=== PATIENT | female | born 1960 | race Caucasian/White ===

== ENCOUNTER 2017-09-06 15:24 | Inpatient (IN) | payer OTHER ==
[2017-09-06] MEDS ORDERED: SODIUM CHLORIDE 0.9% 1,000 ML IV STA (16:42)
[2017-09-06] MEDS ORDERED: IPRATROPIUM-ALBUTEROL 3 ML NEB INHALATION STA (16:43)
--- NOTE | 2017-09-06 16:51 | ED ---
General Adult HPI - General Source: patient, RN notes reviewed Mode of arrival: ambulatory <Letty Chen - Last Filed: 09/06/17 19:18> <Josue Webb - Last Filed: 09/06/17 19:34> - General Stated complaint: abdominal pain/chest pain Time Seen by Provider: 09/06/17 16:25 - History of Present Illness Initial comments: 56 yo female presents to the ER with cc of of abdominal pain cough congestion ear pain sore throat. She states she's been sick for about a week now. She has a history of diverticulitis. She states she also had this cough and she has a little bit of chest pain with it. She does have a history of PE as well currently not on any blood thinners. She denies any nausea vomiting. She states also ears also causing her some discomfort. She was concerned due to the continued symptoms so she thought that she should be evaluated.Patient denies any recent numbness or tingling, dysuria or hematuria, constipation or diarrhea, headaches or visual changes, or any other current symptoms. (Letty Chen) - Related Data Home Medications Medication Instructions Recorded Confirmed Multivitamins, Thera [Multivitamin] 1 tab PO DAILY 01/29/16 09/06/17 Allergies Allergy/AdvReac Type Severity Reaction Status Date / Time ibuprofen AdvReac Abdominal Verified 09/06/17 16:26 Pain Review of Systems ROS Other: All systems not noted in ROS Statement are negative. <Letty Chen - Last Filed: 09/06/17 19:18> ROS Other: All systems not noted in ROS Statement are negative. <Josue Webb - Last Filed: 09/06/17 19:34> ROS Statement: Those systems with pertinent positive or pertinent negative responses have been documented in the HPI. Past Medical History Past Medical History: Asthma, COPD, Fibromyalgia, Hypertension, Pulmonary Embolus (PE) Additional Past Medical History / Comment(s): brain aneurysm, DDD, diverticulits , pain neck, back,legs, hands states not interested in injections for pain relief History of Any Multi-Drug Resistant Organisms: None Reported Past Surgical History: Hysterectomy Additional Past Surgical History / Comment(s): D&C, angiograms Past Anesthesia/Blood Transfusion Reactions: No Reported Reaction Past Psychological History: Anxiety, Depression Smoking Status: Current every day smoker Past Alcohol Use History: None Reported Past Drug Use History: Marijuana - Past Family History Mother Family Medical History: Cancer, Coronary Artery Disease (CAD) Sister(s) Family Medical History: Cancer, Neurologic Disorder Additional Family Medical History / Comment(s): parkinsonism Brother(s) Family Medical History: Cancer <Letty Chen - Last Filed: 09/06/17 19:18> General Exam <Letty Chen - Last Filed: 09/06/17 19:18> <Josue Webb - Last Filed: 09/06/17 19:34> - General Exam Comments Initial Comments: General: The patient is awake and alert, in no distress, and does not appear acutely ill. Eye: Pupils are equal, round and reactive to light, extra-ocular movements are intact; there is normal conjunctiva bilaterally. No signs of icterus. Ears, nose, mouth and throat: There are moist mucous membranes and no oral lesions. Tympanic membranes are mildly erythematous bilaterally Neck: The neck is supple, there is no tenderness. Cardiovascular: There is a regular rate and rhythm. No murmur, rub or gallop is appreciated. Respiratory: Lungs are clear to auscultation, respirations are non-labored, breath sounds are equal. No wheezes, stridor, rales, or rhonchi. Gastrointestinal: Soft, non-distended, mildly diffuse tenderness of the abdomen without masses or organomegaly noted. There is no rebound or guarding present. No CVA tenderness. Bowel sounds are unremarkable. Back: There is no tenderness to palpation in the midline. There is no obvious deformity. No rashes noted. Musculoskeletal: Normal ROM, no tenderness, There is no pedal edema. There is no calf tenderness or swelling. Sensation intact. Pulses equal bilaterally 2+. Neurological: CN II-XII intact, There are no obvious motor or sensory deficits. Coordination appears grossly intact. Speech is normal. Skin: Skin is warm and dry and no rashes or lesions are noted. Psychiatric: Cooperative, appropriate mood & affect, normal judgment. (Letty Chen) Course <Letty Chen - Last Filed: 09/06/17 19:18> <Josue Webb - Last Filed: 09/06/17 19:34> Vital Signs 09/06/17 09/06/17 09/06/17 16:44 18:33 18:40 Temperature 98.5 F Pulse Rate 65 77 71 Respiratory 18 16 16 Rate Blood Pressure 140/84 O2 Sat by Pulse 95 Oximetry - Reevaluation(s) Reevaluation #1: 09/06/17 19:33 PA supervision: I did personally see the patient [id number] and did discuss findings with her and her family. Abdomen is minimally tender she has had a recent viral infection she does not drink alcohol and lab work appears had no issues with liver or gallbladder at this time. I did discuss the case with her physician patient be admitted with GI consultation. I do agree with the assessment and plan (Josue Webb) EKG Findings - EKG Comments: EKG Findings:: normal sinus rhythm with sinus arrhythmia 61 bpm, normal axis, no atopy, no S-T depressions or elevations, <Letty Chen - Last Filed: 09/06/17 19:18> Medical Decision Making - Lab Data Result diagrams: 09/06/17 17:25 09/06/17 17:25 - Radiology Data Radiology results: report reviewed, image reviewed <Letty Chen - Last Filed: 09/06/17 19:18> - Lab Data Result diagrams: 09/06/17 17:25 09/06/17 17:25 <Josue Webb - Last Filed: 09/06/17 19:34> - Medical Decision Making 56-year-old female presents emergency department with multiple complaints. At this time lab work is been reviewed as well as imaging. At this time patient does appear to acute pancreatitis. We'll admit the patient for IV hydration and nausea meds and pain control. We did discuss this with the patient and she is in agreement with this plan. All questions have been answered. (Letty Chen) - Lab Data Lab Results 09/06/17 09/06/17 09/06/17 Range/Units 17:25 17:25 17:25 WBC 9.8 (3.8-10.6) k/uL RBC 5.45 H (3.80-5.40) m/uL Hgb 15.7 (11.4-16.0) gm/dL Hct 49.2 H (34.0-46.0) % MCV 90.3 (80.0-100.0) fL MCH 28.7 (25.0-35.0) pg MCHC 31.8 (31.0-37.0) g/dL RDW 13.1 (11.5-15.5) % Plt Count 296 (150-450) k/uL Neutrophils % 58 % Lymphocytes % 33 % Monocytes % 4 % Eosinophils % 3 % Basophils % 1 % Neutrophils # 5.7 (1.3-7.7) k/uL Lymphocytes # 3.2 (1.0-4.8) k/uL Monocytes # 0.4 (0-1.0) k/uL Eosinophils # 0.3 (0-0.7) k/uL Basophils # 0.1 (0-0.2) k/uL PT (9.0-12.0) sec INR (<1.2) APTT (22.0-30.0) sec D-Dimer (<0.60) mg/L FEU Sodium 144 (137-145) mmol/L Potassium 4.0 (3.5-5.1) mmol/L Chloride 103 (98-107) mmol/L Carbon Dioxide 30 (22-30) mmol/L Anion Gap 11 mmol/L BUN 12 (7-17) mg/dL Creatinine 0.65 (0.52-1.04) mg/dL Est GFR (MDRD) Af Amer >60 (>60 ml/min/1.73 sqM) Est GFR (MDRD) Non-Af >60 (>60 ml/min/1.73 sqM) Glucose 84 (74-99) mg/dL Calcium 10.0 (8.4-10.2) mg/dL Magnesium 2.0 (1.6-2.3) mg/dL Total Bilirubin 0.4 (0.2-1.3) mg/dL AST 18 (14-36) U/L ALT 26 (9-52) U/L Alkaline Phosphatase 75 (38-126) U/L Total Creatine Kinase 37 (30-135) U/L CK-MB (CK-2) 0.4 (0.0-2.4) ng/mL CK-MB (CK-2) Rel Index 1.1 Troponin I <0.012 (0.000-0.034) ng/mL Total Protein 7.3 (6.3-8.2) g/dL Albumin 4.2 (3.5-5.0) g/dL Amylase 151 H (30-110) U/L Lipase 2199 H (23-300) U/L Influenza Type A RNA (Not Detectd) Influenza Type B (PCR) (Not Detectd) 09/06/17 09/06/17 Range/Units 17:25 17:25 WBC (3.8-10.6) k/uL RBC (3.80-5.40) m/uL Hgb (11.4-16.0) gm/dL Hct (34.0-46.0) % MCV (80.0-100.0) fL MCH (25.0-35.0) pg MCHC (31.0-37.0) g/dL RDW (11.5-15.5) % Plt Count (150-450) k/uL Neutrophils % % Lymphocytes % % Monocytes % % Eosinophils % % Basophils % % Neutrophils # (1.3-7.7) k/uL Lymphocytes # (1.0-4.8) k/uL Monocytes # (0-1.0) k/uL Eosinophils # (0-0.7) k/uL Basophils # (0-0.2) k/uL PT 9.9 (9.0-12.0) sec INR 1.0 (<1.2) APTT 23.1 (22.0-30.0) sec D-Dimer 0.71 H (<0.60) mg/L FEU Sodium (137-145) mmol/L Potassium (3.5-5.1) mmol/L Chloride (98-107) mmol/L Carbon Dioxide (22-30) mmol/L Anion Gap mmol/L BUN (7-17) mg/dL Creatinine (0.52-1.04) mg/dL Est GFR (MDRD) Af Amer (>60 ml/min/1.73 sqM) Est GFR (MDRD) Non-Af (>60 ml/min/1.73 sqM) Glucose (74-99) mg/dL Calcium (8.4-10.2) mg/dL Magnesium (1.6-2.3) mg/dL Total Bilirubin (0.2-1.3) mg/dL AST (14-36) U/L ALT (9-52) U/L Alkaline Phosphatase (38-126) U/L Total Creatine Kinase (30-135) U/L CK-MB (CK-2) (0.0-2.4) ng/mL CK-MB (CK-2) Rel Index Troponin I (0.000-0.034) ng/mL Total Protein (6.3-8.2) g/dL Albumin (3.5-5.0) g/dL Amylase (30-110) U/L Lipase (23-300) U/L Influenza Type A RNA Not Detected (Not Detectd) Influenza Type B (PCR) Not Detected (Not Detectd) Disposition Decision Date: 09/06/17 Decision Time: 19:18 <Letty Chen - Last Filed: 09/06/17 19:18> <Josue Webb - Last Filed: 09/06/17 19:34> Clinical Impression: Acute pancreatitis Disposition: ADMITTED IP TO THIS [facility] Condition: Stable Referrals: Manuel Ramirez MD [Primary Care Provider] - 1-2 days
[2017-09-06 17:36] LABS: Basophils # (A) 0.1 k/uL (0-0.2); Basophils % (A) 1 %; Eosinophils # (A) 0.3 k/uL (0-0.7); Eosinophils % (A) 3 %; HCT 49.2 % (34.0-46.0); HGB 15.7 gm/dL (11.4-16.0); Lymphocytes # (A) 3.2 k/uL (1.0-4.8); Lymphocytes % (A) 33 %; MCH 28.7 pg (25.0-35.0); MCHC 31.8 g/dL (31.0-37.0); MCV 90.3 fL (80.0-100.0); Mean Platelet Volume 6.2; Monocytes # (A) 0.4 k/uL (0-1.0); Monocytes % (A) 4 %; Neutrophils # (A) 5.7 k/uL (1.3-7.7); Neutrophils % (A) 58 %; Platelet Count 296 k/uL (150-450); RBC 5.45 m/uL (3.80-5.40); RDW 13.1 % (11.5-15.5); WBC 9.8 k/uL (3.8-10.6)
[2017-09-06 17:47] LABS: ALT 26 U/L (9-52); AST 18 U/L (14-36); Albumin 4.2 g/dL (3.5-5.0); Alkaline Phosphatase 75 U/L (38-126); Amylase 151 U/L (30-110); Anion Gap 11 mmol/L; Blood Urea Nitrogen 12 mg/dL (7-17); Carbon Dioxide 30 mmol/L (22-30); Chloride 103 mmol/L (98-107); Glucose 84 mg/dL (74-99); Sodium 144 mmol/L (137-145); Total Bilirubin 0.4 mg/dL (0.2-1.3); Total Protein 7.3 g/dL (6.3-8.2)
[2017-09-06 17:50] LABS: D-Dimer 0.71 mg/L FEU (<0.60)
[2017-09-06 17:54] LABS: Partial Thromboplastin Time 23.1 sec (22.0-30.0); Prothrombin Time 9.9 sec (9.0-12.0)
[2017-09-06 17:56] LABS: Lipase 2199 U/L (23-300)
[2017-09-06 17:58] LABS: Creatine Kinase 37 U/L (30-135)
--- NOTE | 2017-09-06 17:58 | XR ---
EXAMINATION TYPE: XR chest 2V DATE OF EXAM: 09/06/2017 COMPARISON: 09/28/2010 HISTORY: Cough TECHNIQUE: Frontal and lateral views of the chest are obtained. FINDINGS: Heart and mediastinum are normal. There is a small infiltrate at the left lung base. There is no heart failure. There are chest leads. Bony thorax is intact. IMPRESSION: There is minimal infiltrate at the left lung base. There is overall improved aeration of the left lower lobe compared to old exam. Normal heart.
[2017-09-06] MEDS ORDERED: RX INFO: IV CONTRAST WAS GIVEN 1 EACH MISC MISCELLANE PRN (18:01)
[2017-09-06 18:11] LABS: Creatine Kinase MB 0.4 ng/mL (0.0-2.4); Troponin I <0.012 ng/mL (0.000-0.034)
--- NOTE | 2017-09-06 18:59 | CT ---
EXAMINATION TYPE: CT chest angio for PE DATE OF EXAM: 09/06/2017 COMPARISON: 04/14/2016 HISTORY: Chest pain CT DLP: 427.9 mGycm Automated exposure control for dose reduction was used. CONTRAST: CT Chest for pulmonary embolism performed with with IV Contrast, patient injected with 100ml mL of Om nipaque 350. FINDINGS: There are 3-D post processed images. The lungs are clear of consolidation. There is mild subsegmental atelectasis at the lung bases. There is no pleural effusion. There is no evidence of a pulmonary mass. Heart size is normal. There is no pericardial effusion. There is normal contrast opacification of the pulmonary arteries. I see no filling defect. There are no hilar masses. There is no mediastinal adenopathy. Thoracic aorta appears normal. There is no sign of aneurysm or dissection. The bony thorax appears intact. IMPRESSION: No evidence of pulmonary embolism. Mild subsegmental atelectasis at the lung bases. No change compare d to old exam.
--- NOTE | 2017-09-06 19:07 | CT ---
EXAMINATION TYPE: CT abdomen pelvis w con DATE OF EXAM: 09/06/2017 COMPARISON: 12/18/2013 HISTORY: Abd pain. CT DLP: 1582.4 mGycm Automated exposure control for dose reduction was used. TECHNIQUE: Helical acquisition of images was performed from the lung bases through the pelvis. CONTRAST: Performed without Oral Contrast and with IV Contrast, patient injected with 100ml mL of Omnipaque 350 . FINDINGS: There is mild subsegmental atelectasis at the lung bases. Heart size is normal. There is no pericardi al effusion. There is no pleural effusion. Liver spleen pancreas gallbladder appear normal. Bile ducts are not dilated. Gallbladder is somewhat contracted. There is no adrenal mass. Kidneys show satisfactory contrast opacification. There is no hydronephrosi s. There is no retroperitoneal adenopathy. There is no ascites. There are numerous diverticula in the sigmoid colon. There is mild wall thickening involving the sigmoid colon. There are diverticula in t he descending colon. Appendix appears normal. Abdominal aorta is atheromatous. I see no bony destruct franc process. There is no sign of free air. There is no ascites. The urinary bladder is almost empty. IMPRESSION: SIGMOID DIVERTICULOSIS WITHOUT DEFINITE DIVERTICULITIS. HYPERTROPHIC CHANGES IN THE MID SIGMOID COLON . FOCAL COLITIS CANNOT BE ENTIRELY EXCLUDED. NORMAL APPENDIX. The changes in the sigmoid colon are slightly worse than old CT scan.
[2017-09-06] MEDS ORDERED: ONDANSETRON 4 MG/2 ML VIAL IVP PRN (19:19)
[2017-09-06] MEDS ORDERED: NALOXONE 0.4 MG/ML 1 ML VIAL IV PRN (19:19)
[2017-09-06 21:04] VITALS: BMI 32.8
[2017-09-06] MEDS: SODIUM CHLORIDE 0.9% 1,000 ML IV SCH (21:16)
[2017-09-06] MEDS: HYDROmorphone 0.5 MG/0.5 ML SYRINGE IVP PRN (21:17)
[2017-09-07] MEDS: HYDROmorphone 0.5 MG/0.5 ML SYRINGE IVP PRN ×2 (04:33→21:36)
[2017-09-07] MEDS: SODIUM CHLORIDE 0.9% 1,000 ML IV SCH ×3 (04:34→17:41)
[2017-09-07 06:49] LABS: Basophils # (A) 0.1 k/uL (0-0.2); Basophils % (A) 1 %; Eosinophils # (A) 0.3 k/uL (0-0.7); Eosinophils % (A) 4 %; HCT 45.7 % (34.0-46.0); Lymphocytes # (A) 2.6 k/uL (1.0-4.8); Lymphocytes % (A) 35 %; MCH 29.2 pg (25.0-35.0); MCHC 32.9 g/dL (31.0-37.0); MCV 88.9 fL (80.0-100.0); Mean Platelet Volume 6.4; Monocytes # (A) 0.5 k/uL (0-1.0); Monocytes % (A) 6 %; Neutrophils # (A) 3.9 k/uL (1.3-7.7); Neutrophils % (A) 51 %; Platelet Count 286 k/uL (150-450); RBC 5.14 m/uL (3.80-5.40); RDW 13.2 % (11.5-15.5); WBC 7.5 k/uL (3.8-10.6)
[2017-09-07 07:02] LABS: ALT 27 U/L (9-52); AST 16 U/L (14-36); Albumin 3.6 g/dL (3.5-5.0); Alkaline Phosphatase 71 U/L (38-126); Amylase 62 U/L (30-110); Anion Gap 8 mmol/L; Blood Urea Nitrogen 10 mg/dL (7-17); Calcium 9.2 mg/dL (8.4-10.2); Carbon Dioxide 29 mmol/L (22-30); Chloride 109 mmol/L (98-107); Glucose 95 mg/dL (74-99); Lipase 403 U/L (23-300); Potassium 4.3 mmol/L (3.5-5.1); Sodium 146 mmol/L (137-145); Total Bilirubin 0.5 mg/dL (0.2-1.3); Total Protein 6.4 g/dL (6.3-8.2)
--- NOTE | 2017-09-07 10:09 | P.CONS ---
History of Present Illness - Reason for Consult Consult date: 09/07/17 Pancreatitis Requesting physician: Manuel Ramirez - History of Present Illness 56-year-old female patient of Dr. Ramirez with a history of fibromyalgia remote EtOH abuse quit several years ago, pulmonary embolism, brain/aortic aneurysm, diverticulosis, anxiety, depression, marijuana, COPD, asthma. Presents with 2 week history of sharp abdominal pain in the upper abdomen to her lower back without fever chills changes in the color of her urine or stool. No weight loss. Denies hematemesis hematochezia melena. No heartburn. No NSAIDs. No aspirin. No history of this type of pain. Consult requested for pancreatitis. Admission white count 9.8. Hemoglobin 15.7. Platelet 296. D-dimer 0.7. LFTs within normal limits. Lipase 2199. Amylase 151. Today amylase is 62. Lipase 403. Influenza screen not detected. CT chest abdomen and pelvis liver spleen pancreas gallbladder appeared normal. Bile ducts are not dilated. Sigmoid diverticulosis. No evidence of pulmonary embolism. History pancreatitis. No history of autoimmune disorders. No changes in medications. Review of Systems Constitutional: Denies fever, chills, sweats, weight gain, or loss. HEENT: History of brain aneurysm. Negative for migraines, blurred vision or loss, earaches, drainage, tinnitus, oral mucosal lesions, dysphagia, or odynophagia. CARDIAC: COPD. Asthma. Pulmonary embolism. Negative for chest pain, arrhythmias, or palpitation. RESPIRATORY: Negative for shortness of breath, hemoptysis, cough, or sputum production. GI: See HPI for pertinent findings. : Negative for hematuria, urgency, frequency, polyuria, or dysuria. GYNc: Denies possibility of . Negative vaginal discharge. MUSCULOSKELETAL: History of fibromyalgia.. NEUROLOGIC: Negative for stroke or TIA. ENDOCRINE: Negative for thyroid problems. SKIN: Negative for rash or itching. PSYCHIATRIC: Negative history for depression and anxietymale Past Medical History Past Medical History: Asthma, COPD, Fibromyalgia, Hypertension, Pulmonary Embolus (PE) Additional Past Medical History / Comment(s): brain aneurysm, DDD, diverticulits , pain neck, back,legs, hands states not interested in injections for pain relief History of Any Multi-Drug Resistant Organisms: None Reported Past Surgical History: Hysterectomy, Tubal Ligation Additional Past Surgical History / Comment(s): D&C, angiograms Past Anesthesia/Blood Transfusion Reactions: No Reported Reaction Past Psychological History: Anxiety, Depression Smoking Status: Former smoker Past Alcohol Use History: None Reported Additional Past Alcohol Use History / Comment(s): smoker since age 17 currently 1-2 packs/wk. pt states quit smoking about 2 weeks ago Past Drug Use History: Marijuana Additional Drug Use History / Comment(s): states smokes "couple times a week a couple joints - Past Family History Mother Family Medical History: Cancer, Coronary Artery Disease (CAD) Sister(s) Family Medical History: Cancer, Neurologic Disorder Additional Family Medical History / Comment(s): parkinsonism. pt has 11 siblings , one passed from brain aneurysm. one had aortic aneurysm Brother(s) Family Medical History: Cancer Medications and Allergies Home Medications Medication Instructions Recorded Confirmed Type Multivitamins, Thera [Multivitamin] 1 tab PO DAILY 01/29/16 09/06/17 History Allergies Allergy/AdvReac Type Severity Reaction Status Date / Time ibuprofen AdvReac Abdominal Verified 09/06/17 21:05 Pain Physical Exam Vitals: Vital Signs Temp Pulse Pulse Pulse Resp BP BP 09/07/17 08:13 98.3 F 66 20 121/76 09/06/17 21:56 18 09/06/17 20:30 97.6 F 69 16 09/06/17 18:40 71 16 09/06/17 18:33 77 16 09/06/17 16:44 98.5 F 65 18 140/84 BP Pulse Ox 09/07/17 08:13 94 L 09/06/17 21:56 09/06/17 20:30 123/80 94 L 09/06/17 18:40 09/06/17 18:33 09/06/17 16:44 95 Intake and Output 09/06/17 09/07/17 09/07/17 22:59 06:59 14:59 Intake Total 0 0 Output Total 500 Balance 0 -500 Intake: Oral 0 0 Output: Urine 500 Other: # Voids 2 Weight 95.254 kg General appearance: The patient is alert, oriented, in no acute distress. HET: Head is normocephalic and atraumatic. Pupils are equal and reactive. Oropharynx is clear without lesions. Neck: Supple without lymphadenopathy. Trachea midline. Heart: S1 S2. Regular rate and rhythm. Lungs: No crackles or wheezes are heard. Abdomen: Soft, mild midepigastric tenderness, nondistended with bowel sounds. No peritoneal signs. No palpable organomegaly or masses. Extremities: Normal skin color and turgor. No cyanosis, rash, ulceration, clubbing, or edema. Radial and pedal pulses are 2/4 bilaterally. Neurological: No focal deficits. Strength and sensation are grossly intact. Results CBC & Chem 7: 09/07/17 06:10 09/07/17 06:10 Labs: Abnormal Lab Results - Last 24 Hours (Table) 09/06/17 09/06/17 09/06/17 Range/Units 17:25 17:25 17:25 RBC 5.45 H (3.80-5.40) m/uL Hct 49.2 H (34.0-46.0) % D-Dimer 0.71 H (<0.60) mg/L FEU Sodium (137-145) mmol/L Chloride (98-107) mmol/L Amylase 151 H (30-110) U/L Lipase 2199 H (23-300) U/L 09/07/17 Range/Units 06:10 RBC (3.80-5.40) m/uL Hct (34.0-46.0) % D-Dimer (<0.60) mg/L FEU Sodium 146 H (137-145) mmol/L Chloride 109 H (98-107) mmol/L Amylase (30-110) U/L Lipase 403 H (23-300) U/L CT scan - abdomen: report reviewed (Dr. Vilchis) CT scan - chest: report reviewed (Dr. Vilchis) Assessment and Plan (1) Acute pancreatitis Narrative/Plan: First documented episode. Etiology unclear possible remote EtOH related with improvement in pancreatic enzymes Current Visit: Yes Status: Acute Code(s): K85.90 - ACUTE PANCREATITIS WITHOUT NECROSIS OR INFECTION, UNSP SNOMED Code(s): 138251887 (2) History of ETOH abuse Current Visit: Yes Status: Acute Code(s): Z87.898 - PERSONAL HISTORY OF OTHER SPECIFIED CONDITIONS SNOMED Code(s): 492639805 Plan: 1. Enzymes are improving. Patient is requesting diet advancement will allow a low-fat low residue diet as tolerated. 2. We'll continue to follow with you. Continue with IV hydration. Thank you for this kind referral and the opportunity to participate in the care of your patient. This consultation was discussed with Dr. Vilchis. The impression and plan of care have been directed as dictated.
--- NOTE | 2017-09-07 11:10 | P.HPIM ---
History of Present Illness 56-year-old female presented emergency room with complaints of abdominal pain for 2 weeks. Complains of cold symptoms of nasal congestion with cough improving. Noted elevated amylase lipase that is improving. Patient is on no home medications other than vitamins. Patient has a history of diverticulitis also history of brain aneurysm that is being monitored in history of PE Review of Systems Ears, nose, mouth and throat: Reports nasal congestion Gastrointestinal: Reports abdominal pain Past Medical History Past Medical History: Asthma, COPD, Fibromyalgia, Hypertension, Pulmonary Embolus (PE) Additional Past Medical History / Comment(s): brain aneurysm, DDD, diverticulits , pain neck, back,legs, hands states not interested in injections for pain relief History of Any Multi-Drug Resistant Organisms: None Reported Past Surgical History: Hysterectomy, Tubal Ligation Additional Past Surgical History / Comment(s): D&C, angiograms Past Anesthesia/Blood Transfusion Reactions: No Reported Reaction Past Psychological History: Anxiety, Depression Smoking Status: Former smoker Past Alcohol Use History: None Reported Additional Past Alcohol Use History / Comment(s): smoker since age 17 currently 1-2 packs/wk. pt states quit smoking about 2 weeks ago Past Drug Use History: Marijuana Additional Drug Use History / Comment(s): states smokes "couple times a week a couple joints - Past Family History Mother Family Medical History: Cancer, Coronary Artery Disease (CAD) Sister(s) Family Medical History: Cancer, Neurologic Disorder Additional Family Medical History / Comment(s): parkinsonism. pt has 11 siblings , one passed from brain aneurysm. one had aortic aneurysm Brother(s) Family Medical History: Cancer Medications and Allergies Home Medications Medication Instructions Recorded Confirmed Type Multivitamins, Thera [Multivitamin] 1 tab PO DAILY 01/29/16 09/06/17 History Allergies Allergy/AdvReac Type Severity Reaction Status Date / Time ibuprofen AdvReac Abdominal Verified 09/06/17 21:05 Pain Physical Exam Vitals: Vital Signs Temp Pulse Pulse Pulse Resp BP BP 09/07/17 08:13 98.3 F 66 20 121/76 09/06/17 21:56 18 09/06/17 20:30 97.6 F 69 16 09/06/17 18:40 71 16 09/06/17 18:33 77 16 09/06/17 16:44 98.5 F 65 18 140/84 BP Pulse Ox 09/07/17 08:13 94 L 09/06/17 21:56 09/06/17 20:30 123/80 94 L 09/06/17 18:40 09/06/17 18:33 09/06/17 16:44 95 Intake and Output 09/06/17 09/07/17 09/07/17 22:59 06:59 14:59 Intake Total 0 0 Output Total 500 500 Balance 0 -500 -500 Intake: Oral 0 0 Output: Urine 500 500 Other: # Voids 2 Weight 95.254 kg - Constitutional General appearance: mild distress - EENT Eyes: PERRLA Ears: bilateral: normal - Neck Neck: normal ROM - Respiratory Respiratory: negative: CTA - Cardiovascular Rhythm: regular - Gastrointestinal General gastrointestinal: soft - Integumentary Integumentary: normal - Neurologic Neurologic: CNII-XII intact - Musculoskeletal Musculoskeletal: gait normal - Psychiatric Psychiatric: appropriate affect, intact judgment & insight Results CBC & Chem 7: 09/07/17 06:10 09/07/17 06:10 Labs: Abnormal Lab Results - Last 24 Hours (Table) 09/06/17 09/06/17 09/06/17 Range/Units 17:25 17:25 17:25 RBC 5.45 H (3.80-5.40) m/uL Hct 49.2 H (34.0-46.0) % D-Dimer 0.71 H (<0.60) mg/L FEU Sodium (137-145) mmol/L Chloride (98-107) mmol/L Amylase 151 H (30-110) U/L Lipase 2199 H (23-300) U/L 09/07/17 Range/Units 06:10 RBC (3.80-5.40) m/uL Hct (34.0-46.0) % D-Dimer (<0.60) mg/L FEU Sodium 146 H (137-145) mmol/L Chloride 109 H (98-107) mmol/L Amylase (30-110) U/L Lipase 403 H (23-300) U/L Chest x-ray: report reviewed CT scan - abdomen: report reviewed CT scan - chest: report reviewed Thrombosis Risk Factor Assmnt - Choose All That Apply Each Factor Represents 1 point: Obesity (BMI >25) Each Risk Factor Represents 3 Points: History of DVT/PE Thrombosis Risk Factor Assessment Total Risk Factor Score: 4 Thrombosis Risk Factor Assessment Level: Moderate Risk Assessment and Plan Plan: Assessment Acute pancreatitis with abdominal pain possible colitis History of smoking remote EtOH use History of diverticulitis Brain aneurysm that is monitored History of asthma COPD stable Fibromyalgia Hypertension History of pulmonary embolism Plan Consultation with Dr. Paige and gastroenterology Diet has been advanced
[2017-09-08] MEDS: SODIUM CHLORIDE 0.9% 1,000 ML IV SCH ×2 (00:28→06:19)
--- NOTE | 2017-09-08 09:20 | P.PN ---
Subjective Progress Note Date: 09/08/17 Principal diagnosis: Acute pancreatitis Feels better. Afebrile. Tolerating diet. Pancreatic enzymes improved yesterday. Objective - Vital Signs Vital signs: Vital Signs Temp 97.7 F 09/08/17 08:14 Pulse 64 09/08/17 08:14 Resp 18 09/08/17 08:14 BP 151/81 09/08/17 08:14 Pulse Ox 97 09/08/17 08:14 Intake & Output 09/07/17 09/08/17 09/08/17 18:59 06:59 18:59 Intake Total 480 1320 Output Total 500 Balance -20 1320 Intake: Oral 480 1320 Output: Urine 500 Other: # Voids 3 - Exam General appearance: The patient is alert, oriented, in no acute distress. HET: Head is normocephalic and atraumatic. Pupils are equal and reactive. Oropharynx is clear without lesions. Neck: Supple without lymphadenopathy. Trachea midline. Heart: S1 S2. Regular rate and rhythm. Lungs: No crackles or wheezes are heard. Abdomen: Soft, nontender, nondistended with bowel sounds. No peritoneal signs. No palpable organomegaly or masses. Extremities: Normal skin color and turgor. No cyanosis, rash, ulceration, clubbing, or edema. Radial and pedal pulses are 2/4 bilaterally. Neurological: No focal deficits. Strength and sensation are grossly intact. - Labs CBC & Chem 7: 09/07/17 06:10 09/07/17 06:10 Assessment and Plan (1) Acute pancreatitis Narrative/Plan: First documented episode. Etiology unclear possible remote EtOH related with improvement in pancreatic enzymes Current Visit: Yes Status: Acute Code(s): K85.90 - ACUTE PANCREATITIS WITHOUT NECROSIS OR INFECTION, UNSP SNOMED Code(s): 062891267 (2) History of ETOH abuse Current Visit: Yes Status: Acute Code(s): Z87.898 - PERSONAL HISTORY OF OTHER SPECIFIED CONDITIONS SNOMED Code(s): 576272334 Plan: 1. Discharge per medicine. Follow-up with primary as indicated. Assessment and plan a care discussed with Dr. Vilchis.
[2017-09-08 11:17] VITALS: BP 134/85; PULSE 72; RESP 20; TEMP 97.9
[2017-09-08] MEDS ORDERED: MULTIVITAMINS, THERA 1 EACH TAB PO SCH (12:00)
--- NOTE | 2017-09-08 17:08 | P.DS ---
Providers Date of admission: 09/06/17 19:33 Expected date of discharge: 09/08/17 Attending physician: Manuel Torres Consults: 09/06/17 19:19 Consult Physician Routine Consulting Provider: Julia Vilchis Consult Reason/Comments: pancreatitis Do you want consulting provider notified?: Yes Primary care physician: Manuel Ramirez Hospital Course: Final Diagnoses: Acute pancreatitis, etiology unclear, in a patient with history of EtOH abuse prior to diagnosis of brain/aortic aneursym( several years ago). History of smoking History of diverticulosis Brain aneurysm that is monitored History of asthma COPD stable Fibromyalgia Hypertension History of pulmonary embolism Hospital course: This is a 56-year-old female admitted with complaints of abdominal pain for 2 weeks, accompanied by complaints of cold symptoms nasal congestion,cough improving. On admission lipase 2199, amylase 151, LFTs within normal limits. CT chest abdomen pelvis liver spleen pancreas, bladder appeared normal. Sigmoid diverticulosis. Evaluated by GI. Amylase lipase, improving. Tolerating low fat low residue diet. Maintained on IV fluid hydration. Significant clinical improvement. Cleared by GI for discharge. Patient is being discharged home in a stable condition with guarded prognosis. PHYSICAL EXAM: GEN. VSS, alert and oriented 3, no acute distress,LUNGS: Bilateral bases diminished, no crackles no wheezes.CVS: Regular S1 and S2, no edema. ABD: Soft nontender nondistended, positive bowel sounds, no guarding. NEURO: No focal deficits. The impression and plan of care has been dictated as directed. : I performed a history and examination of this patient, discussed the same with the dictator. I agree with the dictator's note ,documented as a scribe. Any additional findings or plans will be noted. Time taken: 35 minutes Patient Condition at Discharge: Stable Plan - Discharge Summary New Discharge Prescriptions: New HYDROcodone/APAP 5-325MG [[place] 5-325] 1 tab PO Q6HR PRN #20 tab PRN Reason: Pain Continue Multivitamins, Thera [Multivitamin (formulary)] 1 tab PO DAILY Discharge Medication List Multivitamins, Thera [Multivitamin (formulary)] 1 tab PO DAILY 01/29/16 [History ] HYDROcodone/APAP 5-325MG [[place] 5-325] 1 tab PO Q6HR PRN #20 tab 09/08/17 [Rx] Follow up Appointment(s)/Referral(s): Manuel Ramirez MD [Primary Care Provider] - 3 Days Ambulatory/Diagnostic Orders: Lipase [LAB.AMB] Time Frame: 3 Days, Location: Determined By Patient Activity/Diet/Wound Care/Special Instructions: Diet: Lactose free, low fat Activity: Limited until follow up IS Q1H x 10 WA FOLLOW UP LABS IN 3 DAYS, SOONER IF PROBLEMS OR CONCERNS IE...FEVER, WORSENING ABDOMINAL PAIN, CHILLS, NOT KEEPING DOWN FLUIDS OR FOODS. ANY PROBLEMS OR CONCERNS. Discharge Disposition: HOME SELF-CARE
== END 2017-09-08 15:40 | disposition home or self-care (01) | DRG 440 ==
LOC: EC 15:24 → 6PED 19:33
PROVIDERS: ADMIT Family Medicine; ATTEND Family Medicine
DX: K85.90 Acute pancreatitis without necrosis or infection, unspecified (principal); I67.1 Cerebral aneurysm, nonruptured; F17.200 Nicotine dependence, unspecified, uncomplicated; F32.9 Major depressive disorder, single episode, unspecified; F41.9 Anxiety disorder, unspecified; I10 Essential (primary) hypertension; J44.9 Chronic obstructive pulmonary disease, unspecified; K57.30 Diverticulosis of large intestine without perforation or abscess without bleeding; M79.7 Fibromyalgia; J00 Acute nasopharyngitis [common cold]; Z86.711 Personal history of pulmonary embolism; Z90.710 Acquired absence of both cervix and uterus; Z82.49 Family history of ischemic heart disease and other diseases of the circulatory system
CPT/HCPCS: 36415; 71046; 71275; 74177; 80053; 82150; 82550; 82553; 83690; 83735; 84484; 85025; 85379; 85610; 85730; 87502; 93005; 94640; 96360; 99285

== ENCOUNTER → 2018-05-08 | Outpatient (CLI) | payer OTHER ==
--- NOTE | 2018-05-08 13:00 | MR ---
EXAMINATION TYPE: MR brain wo con, MR angio head wo con DATE OF EXAM: 05/08/2018 COMPARISON: 07/01/2016 HISTORY: Cerebral Aneurysm TECHNIQUE: Multiplanar, multisequence images of the brain and brainstem is performed without intravenous contras t. For the MRA portion of the examination multiplanar multiecho imaging on a 3.0 Celina magnet is perf ormed through the [place] of [place]. 3-D [id number] imaging is performed. Source images are revi ewed on the computer in the axial plane. Reconstructed images rotating on the computer are reviewed. FINDINGS: Diffusion weighted images demonstrate no evidence of a recent infarct or other diffusion ab normality. There is no extra-axial fluid collection. Very few foci of T2/FLAIR hyperintensity are sc attered throughout the subcortical white matter as seen the prior exam. The ventricular system and ci sternal spaces are normal in size and appearance. The brain volume is age appropriate. Incidental no te is made of a partially empty sella turcica. Midline structures demonstrate normal morphology. The craniocervical junction appears within normal limits. The dural venous sinuses appear patent. Minimal mucosal thickening is seen within the ethmoid sinuses. The remaining visualized sinuses are clear and the globes are intact. As seen on the prior exam of 07/01/2016 there is a saccular right internal carotid artery terminus int racranial aneurysm measuring approximately 0.6 cm. This is stable from the prior in the exam of Anthony manuel 2014. The [place] of [place] is intact. No new aneurysms are appreciated. No arterial venous malformations. N o vascular occlusion or focal stenosis. No dissection is seen. Vertebral arteries are codominant. Pos terior cerebral vasculature is unremarkable. The previously questioned small aneurysm versus an inde pendent lump of the left posterior communicating artery is not appreciated on today's exam, as on the prior. IMPRESSIONS: 1. 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 No ne w aneurysms appreciated. 2. Very mild burden nonspecific white matter change, most commonly in the basis of microangiopathy. N o acute infarct or midline shift.
== END ==
LOC: RADMRIMAIN 09:29
PROVIDERS: ATTEND Neurological Surgery
DX: I67.1 Cerebral aneurysm, nonruptured (principal); R90.89 Other abnormal findings on diagnostic imaging of central nervous system; I73.9 Peripheral vascular disease, unspecified
CPT/HCPCS: 70544; 70551

== ENCOUNTER 2018-06-12 16:57 | Inpatient (IN) | payer OTHER ==
[2018-06-12] MEDS ORDERED: SODIUM CHLORIDE 0.9% 1,000 ML IV ONE (18:47)
[2018-06-12 19:10] LABS: Basophils % (A) 0 %; Eosinophils # (A) 0.3 k/uL (0-0.7); Eosinophils % (A) 3 %; Lymphocytes # (A) 4.1 k/uL (1.0-4.8); Lymphocytes % (A) 39 %; MCH 29.8 pg (25.0-35.0); MCV 87.7 fL (80.0-100.0); Mean Platelet Volume 6.9; Monocytes # (A) 0.5 k/uL (0-1.0); Monocytes % (A) 5 %; Neutrophils # (A) 5.2 k/uL (1.3-7.7); Neutrophils % (A) 50 %; Platelet Count 289 k/uL (150-450); RBC 5.36 m/uL (3.80-5.40); RDW 13.3 % (11.5-15.5); WBC 10.3 k/uL (3.8-10.6)
[2018-06-12] MEDS ORDERED: IPRATROPIUM-ALBUTEROL 3 ML NEB INHALATION STA (19:17)
[2018-06-12] MEDS ORDERED: MORPHINE SULFATE 2 MG/ML SYRINGE IVP STA (19:18)
[2018-06-12 19:19] LABS: ALT 18 U/L (9-52); AST 18 U/L (14-36); Albumin 4.2 g/dL (3.5-5.0); Alkaline Phosphatase 58 U/L (38-126); Amylase 122 U/L (30-110); Anion Gap 9 mmol/L; Blood Urea Nitrogen 9 mg/dL (7-17); Carbon Dioxide 24 mmol/L (22-30); Chloride 108 mmol/L (98-107); Glucose 83 mg/dL (74-99); Lipase 1660 U/L (23-300); Potassium 3.8 mmol/L (3.5-5.1); Sodium 141 mmol/L (137-145); Total Bilirubin 0.4 mg/dL (0.2-1.3); Total Protein 7.6 g/dL (6.3-8.2)
[2018-06-12] MEDS ORDERED: ONDANSETRON 4 MG/2 ML VIAL IVP STA (19:24)
--- NOTE | 2018-06-12 20:12 | ED ---
Abdominal Pain HPI - General Source: patient Mode of arrival: ambulatory Limitations: no limitations <Zehra Christopher - Last Filed: 06/12/18 21:28> <Nicole Estrella - Last Filed: 06/12/18 22:20> - General Chief Complaint: Abdominal Pain Stated Complaint: URI Time Seen by Provider: 06/12/18 18:46 - History of Present Illness Initial Comments: 57-year-old female has medical history of diverticulitis, pancreatitis, brain and results, neuropathy, fibromyalgia presenting today for chief complaint of upper respiratory symptoms including cough and congestion and abdominal pain. Patient states that she was around her grandkids who were sick with cough and congestion. She soon developed symptoms in addition to sore throat and plugged ears. Patient denies any shortness of breath, dyspnea on exertion, chest pain, vomiting, rigors or chills. Patient does admit to diffuse abdominal pain and decreased appetite. Patient states that the pain is similar to when she's had diverticulitis in the past. Patient states she does have diarrhea however this is her baseline, denies melena or hematochezia. Patient states she has felt warm but is not taking a temperature. In addition patient has had nausea on and off. Patient denies headache, dizziness, confusion, urgency or dysuria, patient denies any upper extremity paresthesias, jaw pain or mid back pain. Remainder of our was negative. Upon arrival patient appears well, nontoxic in no acute distress. Complaints as stated above. Vital signs stable, patient overall appearing well, afebrile. She denies alcohol use or history of gallstones. (Zhera Christopher) - Related Data Home Medications Medication Instructions Recorded Confirmed Multivitamins, Thera [Multivitamin 1 tab PO DAILY 01/29/16 06/12/18 (formulary)] Albuterol Inhaler [Ventolin Hfa 1 - 2 puff INHALATION RT-Q6H PRN 06/12/18 Inhaler] Loratadine 10 mg PO DAILY 06/12/18 06/12/18 Allergies Allergy/AdvReac Type Severity Reaction Status Date / Time ibuprofen AdvReac Abdominal Verified 06/12/18 19:06 Pain Review of Systems ROS Other: All systems not noted in ROS Statement are negative. Constitutional: Reports: fever. Denies: chills ENT: Reports: ear pain (Ear fullness times), throat pain (Sore throat times one day) Respiratory: Reports: cough. Denies: dyspnea, wheezes, hemoptysis, stridor Cardiovascular: Denies: chest pain, palpitations, dyspnea on exertion, orthopnea Endocrine: Denies: fatigue Gastrointestinal: Reports: abdominal pain, nausea, diarrhea (She states she has daily diarrhea). Denies: vomiting, constipation, hematemesis, melena, hematochezia Genitourinary: Denies: urgency, dysuria, frequency, hematuria, discharge Musculoskeletal: Reports: back pain (She states she has chronic low back pain) Neurological: Reports: paresthesias (She states she has chronic paresthesias or neuropathy no acute changes). Denies: headache (Denies headache), weakness, confusion <Zehra Christopher - Last Filed: 06/12/18 21:28> ROS Other: All systems not noted in ROS Statement are negative. <Nicole Estrella - Last Filed: 06/12/18 22:20> ROS Statement: Those systems with pertinent positive or pertinent negative responses have been documented in the HPI. Past Medical History Past Medical History: Asthma, COPD, Fibromyalgia, Hyperlipidemia, Hypertension, Osteoarthritis (OA), Pulmonary Embolus (PE) Additional Past Medical History / Comment(s): Pancreatitis, chronic pain, DDD, DJD, cervical/back pain/bilateral scoliosis, spondylosisi, neuropathy bilateral hands and feet, pulmonary embolism R lung, brain aneurysm being monitored, diverticulosis. History of Any Multi-Drug Resistant Organisms: None Reported Past Surgical History: Hysterectomy, Tubal Ligation Additional Past Surgical History / Comment(s): D&C, angiograms d/t cerebral aneurysm. Past Anesthesia/Blood Transfusion Reactions: No Reported Reaction Past Psychological History: Anxiety, Depression Smoking Status: Current every day smoker Past Alcohol Use History: None Reported Past Drug Use History: Marijuana - Past Family History Mother Family Medical History: Cancer, Coronary Artery Disease (CAD) Additional Family Medical History / Comment(s): Mother had uterine cancer. Sister(s) Family Medical History: Cancer, Neurologic Disorder Additional Family Medical History / Comment(s): parkinsonism. Brother(s) Family Medical History: Cancer Additional Family Medical History / Comment(s): Pt had 2 brothers with cancer. <Kinter,Zehra L - Last Filed: 06/12/18 21:28> General Exam Limitations: no limitations <Zehra Christopher L - Last Filed: 06/12/18 21:28> <Nicole Estrella P - Last Filed: 06/12/18 22:20> - General Exam Comments Initial Comments: General: The patient is awake and alert, in no distress, and does not appear acutely ill. Eye: Pupils are equal, round and reactive to light, extra-ocular movements are intact. No nystagmus. There is normal conjunctiva bilaterally. No signs of icterus. Ears, nose, mouth and throat: There are moist mucous membranes and no oral lesions. Oropharynx is mildly erythematous, no tonsillar enlargement or lesions. Uvula is midline. No palpable anterior cervical adenopathy. Tympanic membranes are within normal limits bilaterally, no erythema or bulging retractions or effusions. External auditory canals normal limits, no erythema, swelling or drainage. Neck: The neck is supple, there is no tenderness or JVD. Cardiovascular: There is a regular rate and rhythm. No murmur, rub or gallop is appreciated. Respiratory: Respirations are non-labored, breath sounds are equal. No wheezes , stridor, rales. Mild rhonchi Gastrointestinal: No noted diaphoresis, jaundice, pallor, protecting postures or squirming. Symmetrical pigmentation of abdomen without signs of inflammation, scars, or striae. Umbilicus mildline, inverted without swelling. No dilated veins. Abdomen contour obese, no noted abdominal distention. No visible masses. No peristalsis, aortic pulsations, or ventral hernia. Bowel sounds audible in all 4 quadrants, unremarkable. No friction rubs or venous hums. No epigastic, hepatic or abdominal bruits. Diffuse tenderness to palpation, particularly in the epigastric and left lower quadrant. No pain to palpation of the right lower quadrant. No rigidity or guarding noted. Liver edge, not palpable. Spleen edge, right and left kidney not palpable. Superior bladder margin non- tender. Special Testing: Negative [place], [place], [place], [place], cutaneous hyperesthesia. Iliopsoas and obturator tests negative bilaterally. Negative Heel Jar test/ kaylen sign. No CVA tenderness. [Digital rectal exam deferred.] Negative berry turners or cullens sign Musculoskeletal: Normal ROM, no tenderness. Strength 5/5. Sensation intact. Radial and DP pulses equal bilaterally 2+. Neurological: A&O x 3. CN II-XII intact, There are no obvious motor or sensory deficits. Coordination appears grossly intact. Speech is normal. Skin: Skin is warm and dry and no rashes or lesions are noted. Psychiatric: Cooperative, appropriate mood & affect, normal judgment. (Zehra Christopher) Course <Zehra Christopher - Last Filed: 06/12/18 21:28> <Nicole Estrella - Last Filed: 06/12/18 22:20> Vital Signs 06/12/18 06/12/18 06/12/18 17:18 19:43 19:53 Temperature 98.3 F Pulse Rate 70 68 70 Respiratory 18 Rate Blood Pressure 133/82 O2 Sat by Pulse 98 Oximetry 06/12/18 22:19 Temperature Pulse Rate 69 Respiratory 19 Rate Blood Pressure 117/72 O2 Sat by Pulse 96 Oximetry - Reevaluation(s) Reevaluation #1: Upon reexamination, patient states that morphine that helped alleviate abdominal pain however symptoms still present with less severity. I offered more morphine at this time, patient deferred further treatment this time. 06/12/18 (Zehra Christopher) Medical Decision Making - Lab Data Result diagrams: 06/12/18 19:00 06/12/18 19:00 - EKG Data -: EKG Interpreted by Az <Zehra Christopher - Last Filed: 06/12/18 21:28> - Lab Data Result diagrams: 06/12/18 19:00 06/12/18 19:00 <Nicole Estrella - Last Filed: 06/12/18 22:20> - Medical Decision Making Well-appearing 57-year-old female, no signs of acute distress. Abdominal exam worrisome for pancreatitis with possibility of diverticulitis. ENT exam unremarkable .no signs of respiratory distress. CXR (-), influenza testing negative. Laboratory values revealed a lipase of 1660, amylase 122. Glucose 83 , calcium 10, calcium within normal limits, white blood cell count within normal limits. Signs are stable. Patient was ordered and by mouth and given fluid hydration including 2 L bolus. Maintenance fluids at 100 mL an hour. Ultrasound negative for gallstones or ductal dilatation. CT negative suspicious for early diverticulitis. Patient started on antibiotics. Patient will be admitted to primary care provider Dr. Ramirez. I discussed the case in detail with Dr. Estrella, who evaluated the patient [id number]. She agrees with impression and plan. At this time feel patient's upper rest or symptoms due to viral URI. No evidence of pneumonia on chest x-ray. Lung sounds cleared following one DuoNeb treatment. Patient was admitted for fluid resuscitation and close monitoring of pancreatitis. Gastroenterology consult it. Case disposition with Dr. Estrella who will resume care of the patient is transferred stably to the floor. She is agreeable with admission, denies questions at this time. (Zehra Christopher) I personally saw and evaluated the patient, reviewed the patient's chart and plan of care with the PA. I agree with the assessment and plan, IV antibiotics were ordered for early diverticulitis, IV fluids for pancreatitis, narcotic pain medication for pain management of the pancreatitis. This plan was discussed with the patient who is agreeable. Patient care was discussed with her primary care physician Dr. Ramirze who agrees with plan for admission. (Nicole Estrella) - Lab Data Lab Results 06/12/18 06/12/18 06/12/18 Range/Units 17:15 17:15 19:00 WBC (3.8-10.6) k/uL RBC (3.80-5.40) m/uL Hgb (11.4-16.0) gm/dL Hct (34.0-46.0) % MCV (80.0-100.0) fL MCH (25.0-35.0) pg MCHC (31.0-37.0) g/dL RDW (11.5-15.5) % Plt Count (150-450) k/uL Neutrophils % % Lymphocytes % % Monocytes % % Eosinophils % % Basophils % % Neutrophils # (1.3-7.7) k/uL Lymphocytes # (1.0-4.8) k/uL Monocytes # (0-1.0) k/uL Eosinophils # (0-0.7) k/uL Basophils # (0-0.2) k/uL Sodium 141 (137-145) mmol/L Potassium 3.8 (3.5-5.1) mmol/L Chloride 108 H (98-107) mmol/L Carbon Dioxide 24 (22-30) mmol/L Anion Gap 9 mmol/L BUN 9 (7-17) mg/dL Creatinine 0.56 (0.52-1.04) mg/dL Est GFR (CKD-EPI)AfAm >90 (>60 ml/min/1.73 sqM) Est GFR (CKD-EPI)NonAf >90 (>60 ml/min/1.73 sqM) Glucose 83 (74-99) mg/dL Calcium 10.0 (8.4-10.2) mg/dL Total Bilirubin 0.4 (0.2-1.3) mg/dL AST 18 (14-36) U/L ALT 18 (9-52) U/L Alkaline Phosphatase 58 (38-126) U/L Total Protein 7.6 (6.3-8.2) g/dL Albumin 4.2 (3.5-5.0) g/dL Amylase 122 H (30-110) U/L Lipase 1660 H (23-300) U/L Influenza Type A RNA Not Detected (Not Detectd) Influenza Type B (PCR) Not Detected (Not Detectd) Group A Strep Rapid Negative (Negative) 06/12/18 Range/Units 19:00 WBC 10.3 (3.8-10.6) k/uL RBC 5.36 (3.80-5.40) m/uL Hgb 16.0 (11.4-16.0) gm/dL Hct 47.0 H (34.0-46.0) % MCV 87.7 (80.0-100.0) fL MCH 29.8 (25.0-35.0) pg MCHC 34.0 (31.0-37.0) g/dL RDW 13.3 (11.5-15.5) % Plt Count 289 (150-450) k/uL Neutrophils % 50 % Lymphocytes % 39 % Monocytes % 5 % Eosinophils % 3 % Basophils % 0 % Neutrophils # 5.2 (1.3-7.7) k/uL Lymphocytes # 4.1 (1.0-4.8) k/uL Monocytes # 0.5 (0-1.0) k/uL Eosinophils # 0.3 (0-0.7) k/uL Basophils # 0.0 (0-0.2) k/uL Sodium (137-145) mmol/L Potassium (3.5-5.1) mmol/L Chloride (98-107) mmol/L Carbon Dioxide (22-30) mmol/L Anion Gap mmol/L BUN (7-17) mg/dL Creatinine (0.52-1.04) mg/dL Est GFR (CKD-EPI)AfAm (>60 ml/min/1.73 sqM) Est GFR (CKD-EPI)NonAf (>60 ml/min/1.73 sqM) Glucose (74-99) mg/dL Calcium (8.4-10.2) mg/dL Total Bilirubin (0.2-1.3) mg/dL AST (14-36) U/L ALT (9-52) U/L Alkaline Phosphatase (38-126) U/L Total Protein (6.3-8.2) g/dL Albumin (3.5-5.0) g/dL Amylase (30-110) U/L Lipase (23-300) U/L Influenza Type A RNA (Not Detectd) Influenza Type B (PCR) (Not Detectd) Group A Strep Rapid (Negative) - EKG Data EKG Comments: A 12-lead EKG was performed and shows the following: Rate is 52, and rhythm is normal sinus, with a sinus bradycardia. There are normal QRS complexes and normal R-wave progression. ST segments have no elevation or depression, and [place] segments appear normal. (Zehra Christopher) Disposition Is patient prescribed a controlled substance at d/c from ED?: No Time of Disposition: 20:12 Decision to Admit Reason: Admit from EC Decision Date: 06/12/18 Decision Time: 20:12 <Zehra Christopher - Last Filed: 06/12/18 21:28> <Nicole Estrella - Last Filed: 06/12/18 22:20> Clinical Impression: URI (upper respiratory infection), Pancreatitis Disposition: ADMITTED IP TO THIS HOSP Condition: Stable Referrals: Manuel Ramirez MD [Primary Care Provider] - 1-2 days
[2018-06-12] MEDS ORDERED: NALOXONE 0.4 MG/ML 1 ML VIAL IV PRN (21:02)
[2018-06-12] MEDS ORDERED: MORPHINE SULFATE 2 MG/ML SYRINGE IV PRN (21:02)
--- NOTE | 2018-06-12 21:10 | US ---
EXAMINATION TYPE: US abdomen limited DATE OF EXAM: 06/12/2018 COMPARISON: 11/03/2017 CLINICAL HISTORY: pancreatitis/GB. Pain EXAM MEASUREMENTS: Liver Length: 18.74 cm Gallbladder Wall: 0.2 cm CBD: 0.5 cm Right Kidney: 10.9 x 3.9 x 4.8 cm Pancreas: Obscured by bowel gas Liver: wnl Gallbladder: wnl Evidence for sonographic Willard's sign: No CBD: wnl Right Kidney: wnl IMPRESSION: Negative right upper quadrant abdominal sonogram. No gallstones or dilated ducts. No adve rse change compared to old exam.
--- NOTE | 2018-06-12 21:17 | CT ---
EXAMINATION TYPE: CT abdomen pelvis w con DATE OF EXAM: 06/12/2018 COMPARISON: 10/31/2017 HISTORY: Abdominal pain. CT DLP: 976.4 mGycm Automated exposure control for dose reduction was used. TECHNIQUE: Helical acquisition of images was performed from the lung bases through the pelvis. CONTRAST: Performed without Oral Contrast and with IV Contrast, patient injected with 100ml mL of Isovue 300. FINDINGS: Lung bases are clear of infiltrate. There is no pleural effusion. Heart size is normal. There is no p ericardial effusion. Liver and spleen appear normal. Bile ducts are not dilated. There is no evidence of pancreatic mass. Gallbladder appears normal. Stomach appears normal. There is no adrenal mass. Kidneys show satisfactory contrast opacification. T here is no hydronephrosis. Ureters are not dilated. There is no retroperitoneal adenopathy. There are multiple sigmoid diverticula. There is mild wall thickening of the distal sigmoid colon. Bladder dis tends smoothly. There is no inguinal hernia. There is no free fluid in the pelvis. There is no mesent joselo edema or adenopathy. Lumbar vertebra have normal alignment. There is degenerative disc spaces aren't from L3 to S1 with va cuum disc and spur formation. There is no compression fracture. There is no evidence of a bowel obstr uction. IMPRESSION: THERE IS WALL THICKENING OF THE DISTAL SIGMOID COLON SUGGESTIVE OF A NONSPECIFIC COLITIS. THERE IS LA LD SIGMOID DIVERTICULOSIS. NO EVIDENCE OF AN ABSCESS. THIS APPEARS SIMILAR TO OLD EXAM. DIVERTICULITI S IS ALSO POSSIBLE.
--- NOTE | 2018-06-12 21:18 | XR ---
EXAMINATION TYPE: XR chest 2V DATE OF EXAM: 06/12/2018 COMPARISON: 09/06/2017 HISTORY: Cough and runny nose TECHNIQUE: Frontal and lateral views of the chest are obtained. FINDINGS: Heart and mediastinum are normal. There is a minimal 1 cm infiltrate at the left lung base . The other lung villalobos are clear. There is no pleural effusion. Bony thorax is intact. IMPRESSION: Minimal infiltrate or atelectasis at the left lung base is improved compared to old exam . Normal heart.
[2018-06-12] MEDS ORDERED: metroNIDAZOLE-NS PMX 500 MG in SALINE 1 100ML.BAG IVPB STA (21:22)
[2018-06-12] MEDS ORDERED: MORPHINE SULFATE 4 MG/ML SYRINGE IVP STA (21:41)
[2018-06-12] MEDS: SODIUM CHLORIDE 0.9% 1,000 ML IV SCH ×2 (22:17→23:40)
[2018-06-13 00:17] VITALS: BMI 30.5
[2018-06-13] MEDS: SODIUM CHLORIDE 0.9% 1,000 ML IV SCH ×8 (03:43→23:40)
[2018-06-13] MEDS ORDERED: ALBUTEROL NEBULIZED 2.5 MG/3 ML INHALATION PRN (11:11)
[2018-06-13] MEDS ORDERED: ONDANSETRON 4 MG/2 ML VIAL IVP PRN (11:59)
--- NOTE | 2018-06-13 11:59 | P.HPIM ---
History of Present Illness 57-year-old female came into the emergency room with complaints of 5 cough for 2 weeks. Complains also sore throat plugged ears states that her grandchildren in the same. Complained of mild abdominal pain with nausea vomiting and diarrhea Review of Systems Respiratory: Reports cough Gastrointestinal: Reports abdominal pain, Reports diarrhea, Reports nausea, Reports vomiting Past Medical History Past Medical History: Asthma, COPD, Fibromyalgia, Hyperlipidemia, Hypertension, Osteoarthritis (OA), Pulmonary Embolus (PE) Additional Past Medical History / Comment(s): Pancreatitis, chronic pain, DDD, DJD, cervical/back pain/bilateral scoliosis, spondylosisi, neuropathy bilateral hands and feet, pulmonary embolism R lung, brain aneurysm being monitored, diverticulosis. History of Any Multi-Drug Resistant Organisms: None Reported Past Surgical History: Hysterectomy, Tubal Ligation Additional Past Surgical History / Comment(s): D&C, angiograms d/t cerebral aneurysm. Past Anesthesia/Blood Transfusion Reactions: No Reported Reaction Past Psychological History: Anxiety, Depression Additional Psychological History / Comment(s): Pt lives with her son and his fiancee. She has a cane but does not need to use it. She drives. Smoking Status: Current every day smoker Past Alcohol Use History: None Reported Additional Past Alcohol Use History / Comment(s): Pt started smoking in 1977 and is a half pack a day smoker. She drank heavily in the past but has not drank alcohol in 6 years. Past Drug Use History: Marijuana Additional Drug Use History / Comment(s): states smokes "couple times a week a couple joints." - Past Family History Mother Family Medical History: Cancer, Coronary Artery Disease (CAD) Additional Family Medical History / Comment(s): Mother had uterine cancer. Sister(s) Family Medical History: Cancer, Neurologic Disorder Additional Family Medical History / Comment(s): parkinsonism. Brother(s) Family Medical History: Cancer Additional Family Medical History / Comment(s): Pt had 2 brothers with cancer. Medications and Allergies Home Medications Medication Instructions Recorded Confirmed Type Multivitamins, Thera [Multivitamin 1 tab PO DAILY 01/29/16 06/12/18 History (formulary)] Albuterol Inhaler [Ventolin Hfa 1 - 2 puff INHALATION RT-Q6H PRN 06/12/18 History Inhaler] Loratadine 10 mg PO DAILY 06/12/18 06/12/18 History Allergies Allergy/AdvReac Type Severity Reaction Status Date / Time ibuprofen AdvReac Abdominal Verified 06/12/18 19:06 Pain Physical Exam Vitals: Vital Signs Temp Pulse Pulse Resp BP BP Pulse Ox 06/13/18 06:21 97.5 F L 65 15 120/77 92 L 06/13/18 00:00 97.3 F L 63 18 148/88 94 L 06/12/18 23:43 78 20 117/72 96 06/12/18 22:19 69 19 117/72 96 06/12/18 19:53 70 06/12/18 19:43 68 06/12/18 17:18 98.3 F 70 18 133/82 98 Intake and Output 06/12/18 06/13/18 06/13/18 22:59 06:59 14:59 Other: # Voids 2 Weight 88.451 kg 88.451 kg - Constitutional General appearance: mild distress - EENT Eyes: PERRLA Ears: bilateral: normal - Neck Neck: normal ROM - Respiratory Respiratory: bilateral: CTA - Cardiovascular Rhythm: regular - Gastrointestinal General gastrointestinal: soft - Integumentary Integumentary: normal - Neurologic Neurologic: CNII-XII intact - Musculoskeletal Musculoskeletal: gait normal - Psychiatric Psychiatric: A&O x's 3, appropriate affect, intact judgment & insight Results CBC & Chem 7: 06/12/18 19:00 06/12/18 19:00 Labs: Abnormal Lab Results - Last 24 Hours (Table) 06/12/18 06/12/18 Range/Units 19:00 19:00 Hct 47.0 H (34.0-46.0) % Chloride 108 H (98-107) mmol/L Amylase 122 H (30-110) U/L Lipase 1660 H (23-300) U/L Microbiology - Last 24 Hours (Table) 06/12/18 17:15 Group A Strep Throat Culture - Preliminary Throat Chest x-ray: report reviewed CT scan - abdomen: report reviewed US - abdomen: report reviewed Thrombosis Risk Factor Assmnt - Choose All That Apply Any of the Below Risk Factors Present?: Yes Each Factor Represents 1 point: Age 41-60 years, Obesity (BMI >25) Each Risk Factor Represents 3 Points: History of DVT/PE Thrombosis Risk Factor Assessment Total Risk Factor Score: 5 Thrombosis Risk Factor Assessment Level: High Risk Assessment and Plan Plan: Assessment Upper respiratory infection Chronic pancreatitis Colitis History of asthma/COPD Fibromyalgia Hypertension Hyperlipidemia Osteoarthritis with degenerative disc disease History of pulmonary embolus History of pancreatitis Brain aneurysm that is monitored Diverticular disease Anxiety/depression Plan Patient is nothing by mouth Repeat amylase lipase Consultation with gastroenterology Patient on Rocephin and Flagyl
[2018-06-13 12:21] LABS: Amylase 49 U/L (30-110); Lipase 247 U/L (23-300)
[2018-06-13] MEDS: CIPROFLOXACIN HCL 500 MG TAB PO SCH (21:06)
--- NOTE | 2018-06-13 21:10 | P.CONS ---
History of Present Illness - Reason for Consult Consult date: 06/13/18 Pancreatitis Requesting physician: Manuel Ramirez - Chief Complaint Upper respiratory tract infection, nausea vomiting diarrhea - History of Present Illness 57-year-old female with a complex medical history including prior episode of pancreatitis, fibromyalgia, brain aneurysm, osteoarthritis, hypertension and COPD who presents with a constellation of symptoms. Initially the patient reports that she presented to the hospital with complaints of a developing upper respiratory tract infection. She states that while she was in the emergency department she reported that she had been having some nausea, vomiting and loose stools which she reports are chronic in addition to abdominal pain and asked for this to be evaluated due to a prior episode of pancreatitis earlier in the year. The patient reports that she is unclear what triggered the pancreatitis earlier in the year. She has a prior history of heavy alcohol use but reports that she has not drank alcohol in years. She is an active user of tobacco products. She denies any history of gallstones. She reports that for the past week she has been nauseated and had episodes of nonbloody nonbilious vomiting. The patient reports that at baseline she has 2- 3 loose bowel movements daily. She denies any hematochezia or melena. She reports that her bowels have been more frequent at approximately 3-4 times per day. She also reports some abdominal pain but is very vague when describing the pain stating that it is difficult for her to characterize given all the pain that she is usually in. She denies any nighttime symptoms. She denies any prior evaluation with EGD or colonoscopy. On presentation she was found to have a lipase elevated at [address] in evaluation which showed mild sigmoid colitis versus a possible developing diverticulitis. Review of Systems REVIEW OF SYSTEMS: CARDIO: Denies any chest pain or palpitations. PULMONARY: Symptoms of upper respiratory tract infection but denies any wheezing. GENITOURINARY: No dysuria or hematuria. MUSCULOSKELETAL: No weakness reported. SKIN: Denies any new rashes or lesions, jaundice or pallor. PSYCHIATRIC: Denies any depression or anxiety. NEUROLOGY: Denies headache, denies any new focal deficits. EARS: No tinnitus, discharge or new hearing loss. NOSE: Reports congestion and clear discharge from nose. EYES: No pain in eyes or change in vision. CONSTITUTIONAL: No recent weight loss. No fever, chills, night sweats. Past Medical History Past Medical History: Asthma, COPD, Fibromyalgia, Hyperlipidemia, Hypertension, Osteoarthritis (OA), Pulmonary Embolus (PE) Additional Past Medical History / Comment(s): Pancreatitis, chronic pain, DDD, DJD, cervical/back pain/bilateral scoliosis, spondylosisi, neuropathy bilateral hands and feet, pulmonary embolism R lung, brain aneurysm being monitored, diverticulosis. History of Any Multi-Drug Resistant Organisms: None Reported Past Surgical History: Hysterectomy, Tubal Ligation Additional Past Surgical History / Comment(s): D&C, angiograms d/t cerebral aneurysm. Past Anesthesia/Blood Transfusion Reactions: No Reported Reaction Past Psychological History: Anxiety, Depression Additional Psychological History / Comment(s): Pt lives with her son and his fiancee. She has a cane but does not need to use it. She drives. Smoking Status: Current every day smoker Past Alcohol Use History: None Reported Additional Past Alcohol Use History / Comment(s): Pt started smoking in 1977 and is a half pack a day smoker. She drank heavily in the past but has not drank alcohol in 6 years. Past Drug Use History: Marijuana Additional Drug Use History / Comment(s): states smokes "couple times a week a couple joints." - Past Family History Mother Family Medical History: Cancer, Coronary Artery Disease (CAD) Additional Family Medical History / Comment(s): Mother had uterine cancer. Sister(s) Family Medical History: Cancer, Neurologic Disorder Additional Family Medical History / Comment(s): parkinsonism. Brother(s) Family Medical History: Cancer Additional Family Medical History / Comment(s): Pt had 2 brothers with cancer. Medications and Allergies Home Medications Medication Instructions Recorded Confirmed Type Multivitamins, Thera [Multivitamin 1 tab PO DAILY 01/29/16 06/12/18 History (formulary)] Albuterol Inhaler [Ventolin Hfa 1 - 2 puff INHALATION RT-Q6H PRN 06/12/18 History Inhaler] Loratadine 10 mg PO DAILY 06/12/18 06/12/18 History Allergies Allergy/AdvReac Type Severity Reaction Status Date / Time ibuprofen AdvReac Abdominal Verified 06/12/18 19:06 Pain Physical Exam Vitals: Vital Signs Temp Pulse Pulse Pulse Resp BP BP 06/13/18 15:00 98.3 F 66 16 136/77 06/13/18 06:21 97.5 F L 65 15 06/13/18 00:00 97.3 F L 63 18 06/12/18 23:43 78 20 117/72 06/12/18 22:19 69 19 117/72 BP Pulse Ox 06/13/18 15:00 94 L 06/13/18 06:21 120/77 92 L 06/13/18 00:00 148/88 94 L 06/12/18 23:43 96 06/12/18 22:19 96 Intake and Output 06/13/18 06/13/18 06/13/18 06:59 14:59 22:59 Other: # Voids 2 2 Weight 88.451 kg On physical examination, patient appears comfortable in no apparent distress. HEAD: Normocephalic, atraumatic. EYES: No scleral icterus. No conjunctival injection. MOUTH: No lesions, tongue midline. NECK: Trachea midline, no gross abnormalities. CHEST: Clear to auscultation with no wheezing or rhonchi appreciated. HEART: Regular rate and rhythm. ABDOMEN: Soft, obese and diffusely tender to palpation. Bowel sounds are positive. No organomegaly. No guarding or rigidity. EXTREMITIES: No pedal edema. SKIN: No rashes, no jaundice. NEUROLOGIC: Alert and oriented x3. No focal deficits. Results CBC & Chem 7: 06/12/18 19:00 06/12/18 19:00 Labs: Microbiology - Last 24 Hours (Table) 06/12/18 17:15 Group A Strep Throat Culture - Preliminary Throat CT scan - abdomen: report reviewed (CT abdomen with reports of mild sigmoid colitis versus developing diverticulitis.) Assessment and Plan (1) Pancreatitis Narrative/Plan: Patient reports prior history of pancreatitis earlier in the year. Denies any recent alcohol use but has a prior history of heavy alcohol abuse. She is an active tobacco user. Patient's description of her abdominal pain is very vague. No evidence of intrahepatic stranding on CT but lipase was found to be elevated. Current Visit: Yes Status: Acute Code(s): K85.90 - ACUTE PANCREATITIS WITHOUT NECROSIS OR INFECTION, UNSP SNOMED Code(s): 92906331 (2) Colitis Narrative/Plan: Sigmoid colitis seen on computed tomography scan in the setting of nausea vomiting and slight increase in the frequency of the patient's bowel movements which are described as loose at baseline. Current Visit: Yes Status: Acute Code(s): K52.9 - NONINFECTIVE GASTROENTERITIS AND COLITIS, UNSPECIFIED SNOMED Code(s): 67867160 (3) History of ETOH abuse Current Visit: No Status: Acute Code(s): Z87.898 - PERSONAL HISTORY OF OTHER SPECIFIED CONDITIONS SNOMED Code(s): 323579871 Plan: Supportive care Patient started on liquid diet, advance as tolerated Fluid hydration Pain control Stool studies ordered Patient may benefit from investigation for fat malabsorption in the outpatient setting with fecal elastase and alpha 1 antitrypsin level Given recurrent episode of pancreatitis patient should've follow-up for referral to tertiary center for evaluation of the pancreas with endoscopic ultrasound in the outpatient setting Continued on antibiotic therapy with ciprofloxacin and Flagyl given findings of colitis Outpatient colonoscopy in 4-6 weeks Thank you for allowing us to dissipate in the care of this patient we will continue to follow
[2018-06-13] MEDS: metroNIDAZOLE-NS PMX 500 MG in SALINE 1 100ML.BAG IVPB SCH (23:40)
[2018-06-14] MEDS: SODIUM CHLORIDE 0.9% 1,000 ML IV SCH ×4 (04:08→15:30)
[2018-06-14] MEDS: CIPROFLOXACIN HCL 500 MG TAB PO SCH (07:39)
[2018-06-14] MEDS: metroNIDAZOLE-NS PMX 500 MG in SALINE 1 100ML.BAG IVPB SCH ×2 (07:39→15:47)
[2018-06-14 15:06] VITALS: BP 164/72; PULSE 59; RESP 20; TEMP 97.7
--- NOTE | 2018-06-15 01:08 | DS ---
DISCHARGE SUMMARY FINAL DIAGNOSES: 1. Upper respiratory infection. 2. Acute on chronic pancreatitis. 3. Acute colitis. 4. History of asthma/chronic obstructive pulmonary disease. 5. Fibromyalgia. 6. Hypertension. 7. Hyperlipidemia. 8. Degenerative joint disease. 9. History of pulmonary embolism. 10.History of pancreatitis. 11.History of brain aneurysm. 12.History of diverticular disease. 13.Anxiety, depression. DISCHARGE DISPOSITION: The patient is being discharged in stable condition with guarded prognosis. HISTORY OF PRESENT ILLNESS: This 57-year-old woman with a past medical history of multiple medical problems, admitted with upper respiratory infection, acute on chronic pancreatitis and colitis treated symptomatically, improved significantly. Patient was also seen by gastroenterology. Recommended outpatient followup. On exam, vitals stable. Cardiovascular S1, S2. Abdomen soft. Nervous system: No focal deficits. DISCHARGE ADVICE AND MEDICATIONS: 1. Diet is cardiac diet. 2. Activity limited until followup. 3. Follow up with Dr. Ramirez in 2-3 days. 4. Follow up with Dr. Rodriguez as recommended. 5. Albuterol p.r.n. 6. Loratadine 10 mg daily. 7. Multivitamins 1 p.o. daily. 8. Cipro 500 mg p.o. b.i.d. for 4 days. 9. Flagyl 500 mg p.o. t.i.d. for 4 days. 10.Protonix 40 mg p.o. daily. MMODL / IJN: [id number] /
== END 2018-06-14 18:08 | disposition home or self-care (01) | DRG 440 ==
LOC: EC 16:57 → 4MS4W 22:19
PROVIDERS: ADMIT Family Medicine; ATTEND Family Medicine
DX: K85.90 Acute pancreatitis without necrosis or infection, unspecified (principal); K86.1 Other chronic pancreatitis; I67.1 Cerebral aneurysm, nonruptured; M41.9 Scoliosis, unspecified; G62.9 Polyneuropathy, unspecified; J44.9 Chronic obstructive pulmonary disease, unspecified; I10 Essential (primary) hypertension; M50.30 Other cervical disc degeneration, unspecified cervical region; M47.9 Spondylosis, unspecified; G89.29 Other chronic pain; M79.7 Fibromyalgia; E78.5 Hyperlipidemia, unspecified; F32.9 Major depressive disorder, single episode, unspecified; F41.9 Anxiety disorder, unspecified; M19.90 Unspecified osteoarthritis, unspecified site; J02.9 Acute pharyngitis, unspecified; K52.9 Noninfective gastroenteritis and colitis, unspecified; F17.210 Nicotine dependence, cigarettes, uncomplicated; Z71.6 Tobacco abuse counseling; Z79.899 Other long term (current) drug therapy; Z86.711 Personal history of pulmonary embolism; Z98.51 Tubal ligation status; Z90.710 Acquired absence of both cervix and uterus; Z87.19 Personal history of other diseases of the digestive system; Z88.6 Allergy status to analgesic agent; Z82.49 Family history of ischemic heart disease and other diseases of the circulatory system; Z80.49 Family history of malignant neoplasm of other genital organs; Z82.0 Family history of epilepsy and other diseases of the nervous system; Z80.9 Family history of malignant neoplasm, unspecified
CPT/HCPCS: 36415; 71046; 74177; 76705; 80053; 82150; 83690; 85025; 87081; 87430; 87502; 93005; 94640; 96361; 96365; 96366; 96368; 96375; 96376; 99285

== ENCOUNTER → 2018-06-19 | Outpatient (CLI) | payer OTHER ==
[2018-06-19 18:19] LABS: Basophils # (A) 0.1 k/uL (0-0.2); Basophils % (A) 1 %; Eosinophils # (A) 0.3 k/uL (0-0.7); Eosinophils % (A) 4 %; HCT 44.8 % (34.0-46.0); Lymphocytes % (A) 41 %; MCH 29.9 pg (25.0-35.0); MCHC 33.5 g/dL (31.0-37.0); MCV 89.2 fL (80.0-100.0); Mean Platelet Volume 6.8; Monocytes # (A) 0.5 k/uL (0-1.0); Monocytes % (A) 6 %; Neutrophils # (A) 3.5 k/uL (1.3-7.7); Neutrophils % (A) 46 %; Platelet Count 274 k/uL (150-450); RBC 5.02 m/uL (3.80-5.40); RDW 13.7 % (11.5-15.5); WBC 7.5 k/uL (3.8-10.6)
[2018-06-20 03:13] LABS: Albumin 4.1 g/dL (3.80-4.90); Albumin/Globulin Ratio 1.86 (1.20-2.10); Anion Gap 6.2 mmol/L (4.00-12.00); Calcium 9.7 mg/dL (8.7-10.3); Carbon Dioxide 27.8 mmol/L (21.6-31.8); Globulin 2.2 g/dL (2.1-3.7); Potassium 4.2 mmol/L (3.5-5.5); Total Bilirubin 0.2 mg/dL (0.2-1.2); Total Protein 6.3 g/dL (6.2-8.2)
== END | disposition home or self-care (01) ==
LOC: LABWHC1 17:16
PROVIDERS: ATTEND Hospitalist
DX: D64.9 Anemia, unspecified (principal)
CPT/HCPCS: 36415; 80053; 82150; 83690; 85025

== ENCOUNTER 2018-08-08 12:38 | Emergency (ER) | payer OTHER ==
[2018-08-08 12:41] VITALS: RESP 18
[2018-08-08] MEDS ORDERED: SODIUM CHLORIDE 0.9% 1,000 ML IV STA ×2 (13:37)
[2018-08-08] MEDS ORDERED: ONDANSETRON 4 MG/2 ML VIAL IVP STA (13:37)
[2018-08-08] MEDS ORDERED: MORPHINE SULFATE 2 MG/ML SYRINGE IVP STA (13:37)
--- NOTE | 2018-08-08 14:08 | ED ---
Abdominal Pain HPI - General Chief Complaint: Abdominal Pain Stated Complaint: abd pain Time Seen by Provider: 08/08/18 13:12 Source: patient, RN notes reviewed, old records reviewed Mode of arrival: wheelchair Limitations: no limitations - History of Present Illness Initial Comments: 57 rolled female presents to return today with complaints of abdominal pain. Patient states is left-sided over the past 3 days. Patient's history of pancreatitis and diverticulitis. She reports some diarrhea. Patient states she 's had occasional chills. She has had nausea but no specific vomiting of some Patient denies any other complaints. - Related Data Home Medications Medication Instructions Recorded Confirmed Multivitamins, Thera [Multivitamin 1 tab PO DAILY 01/29/16 08/08/18 (formulary)] Albuterol Inhaler [Ventolin Hfa 1 - 2 puff INHALATION RT-Q6H PRN 06/12/18 Inhaler] Loratadine 10 mg PO DAILY 06/12/18 08/08/18 Acetaminophen Tab [Tylenol Tab] 500 mg PO Q6HR PRN 08/08/18 08/08/18 Albuterol Nebulized [Ventolin 2.5 mg INHALATION RT-Q4H PRN 08/08/18 08/08/18 Nebulized] Previous Rx's Medication Instructions Recorded Acetaminophen with Codeine 1 tab PO Q6H PRN 3 Days #12 tab 08/08/18 [Tylenol w/codeine #3] Amoxic-Pot Clav 875-125Mg 1 tab PO Q12HR #20 tablet 08/08/18 [Augmentin 875-125] Ondansetron Odt [Zofran Odt] 4 mg PO Q8HR PRN #20 tab 08/08/18 Allergies Allergy/AdvReac Type Severity Reaction Status Date / Time ibuprofen AdvReac Abdominal Verified 08/08/18 13:32 Pain Review of Systems ROS Statement: Those systems with pertinent positive or pertinent negative responses have been documented in the HPI. ROS Other: All systems not noted in ROS Statement are negative. Past Medical History Past Medical History: Asthma, COPD, Fibromyalgia, Hyperlipidemia, Hypertension, Osteoarthritis (OA), Pulmonary Embolus (PE) Additional Past Medical History / Comment(s): Pancreatitis, chronic pain, DDD, DJD, cervical/back pain/bilateral scoliosis, spondylosisi, neuropathy bilateral hands and feet, pulmonary embolism R lung, brain aneurysm being monitored, diverticulosis. History of Any Multi-Drug Resistant Organisms: None Reported Past Surgical History: Hysterectomy, Tubal Ligation Additional Past Surgical History / Comment(s): D&C, angiograms d/t cerebral aneurysm. Past Anesthesia/Blood Transfusion Reactions: No Reported Reaction Past Psychological History: Anxiety, Depression Smoking Status: Current every day smoker Past Alcohol Use History: None Reported Past Drug Use History: Marijuana - Past Family History Mother Family Medical History: Cancer, Coronary Artery Disease (CAD) Additional Family Medical History / Comment(s): Mother had uterine cancer. Sister(s) Family Medical History: Cancer, Neurologic Disorder Additional Family Medical History / Comment(s): parkinsonism. Brother(s) Family Medical History: Cancer Additional Family Medical History / Comment(s): Pt had 2 brothers with cancer. General Exam - General Exam Comments Initial Comments: Well-appearing 57 rolled female. No acute distress. General: Well appearing, well nourished, in no distress. Oriented x 3, normal mood and affect . Ambulating without difficulty. Skin: Good turgor, no rash, unusual bruising or prominent lesions Hair: Normal texture and distribution. HEENT: Head: Normocephalic, atraumatic, no visible or palpable masses, depressions, or scaring. Eyes: Visual acuity intact, conjunctiva clear, sclera non-icteric, EOM intact, PERRL. Ears: EACs clear, TMs translucent & cone of light visualized. hearing intact. Nose: No external lesions, mucosa non-inflamed, septum and turbinates normal Mouth: Mucous membranes moist, no mucosal lesions. Teeth/Gums: No obvious caries or periodontal disease. No gingival inflammation or significant resorption. Pharynx: Mucosa non-inflamed, no tonsillar hypertrophy or exudate Neck: Supple, without lesions, bruits, or adenopathy, thyroid non-enlarged and non-tender Heart: No cardiomegaly or thrills; regular rate and rhythm, no murmur or gallop Lungs: Clear to auscultation and percussion Abdomen: Bowel sounds normal, left lower quadrant tenderness Extremities: No amputations or deformities, cyanosis, edema or varicosities, peripheral pulses intact Musculoskeletal: Normal gait and station. No misalignment, asymmetry, crepitation, defects, tenderness, masses, effusions, decreased range of motion, instability, atrophy or abnormal strength or tone in the head, neck, spine, ribs , pelvis or extremities. Neurologic: CN 2-12 normal. Sensation to pain, touch, and proprioception normal. DTRs normal in upper and lower extremities. No pathologic reflexes. Psychiatric: Oriented X3, intact recent and remote memory, judgment and insight , normal mood and affect. Limitations: no limitations Course Vital Signs 08/08/18 08/08/18 12:40 16:56 Temperature 98.3 F Pulse Rate 87 75 Respiratory 18 18 Rate Blood Pressure 129/76 110/70 O2 Sat by Pulse 99 99 Oximetry Medical Decision Making - Medical Decision Making 57-year-old female presents raise her arm today with left-sided abdominal pain for a few days. She had some diarrhea episodes. History of pink. Patient's labwork was reviewed. Mildly elevated white blood cell count she is given a liter bolus given 2 L of morphine and Zofran for nausea. Patient EKG was reviewed and normal. Normal chest x-ray. Patient has had a CT of her abdomen and pelvis completed. Her lab work also shows a mildly elevated lipase. However Patient has not had a significant elevation of her lipase. Been much higher in the past. Her CT abdomen and pelvis was completed. There is evidence of some colitis and diverticulitis. Also thickening in the distant: Recommended following up with gastrologist rule out mass. Patient had this on her previous computed tomography scan. I had a lengthy discussion with Patient that she should follow-up with heel cementer machine for colonoscopy. Patient with her extensive history of diverticulitis. Patient agrees. At this time we' ll discharge the Patient with antibiotics, Augmentin for diverticulitis. Recommended clear liquid diet. As well as short course of pain meds to follow- up with her primary care physician. All questions answered and return parameters were discussed. - Lab Data Result diagrams: 08/08/18 14:30 08/08/18 14:30 Lab Results 08/08/18 08/08/18 08/08/18 Range/Units 14:30 14:30 14:30 WBC 11.5 H (3.8-10.6) k/uL RBC 5.58 H (3.80-5.40) m/uL Hgb 17.1 H (11.4-16.0) gm/dL Hct 49.7 H (34.0-46.0) % MCV 89.0 (80.0-100.0) fL MCH 30.6 (25.0-35.0) pg MCHC 34.4 (31.0-37.0) g/dL RDW 13.2 (11.5-15.5) % Plt Count 203 (150-450) k/uL Neutrophils % 81 % Lymphocytes % 12 % Monocytes % 4 % Eosinophils % 1 % Basophils % 0 % Neutrophils # 9.4 H (1.3-7.7) k/uL Lymphocytes # 1.4 (1.0-4.8) k/uL Monocytes # 0.4 (0-1.0) k/uL Eosinophils # 0.2 (0-0.7) k/uL Basophils # 0.0 (0-0.2) k/uL PT 10.4 (9.0-12.0) sec INR 1.0 (<1.2) APTT 24.7 (22.0-30.0) sec Sodium 141 (137-145) mmol/L Potassium 3.7 (3.5-5.1) mmol/L Chloride 104 (98-107) mmol/L Carbon Dioxide 25 (22-30) mmol/L Anion Gap 12 mmol/L BUN 17 (7-17) mg/dL Creatinine 0.60 (0.52-1.04) mg/dL Est GFR (CKD-EPI)AfAm >90 (>60 ml/min/1.73 sqM) Est GFR (CKD-EPI)NonAf >90 (>60 ml/min/1.73 sqM) Glucose 93 (74-99) mg/dL Calcium 10.1 (8.4-10.2) mg/dL Total Bilirubin 0.6 (0.2-1.3) mg/dL AST 29 (14-36) U/L ALT 28 (9-52) U/L Alkaline Phosphatase 76 (38-126) U/L Troponin I (0.000-0.034) ng/mL Total Protein 8.0 (6.3-8.2) g/dL Albumin 4.3 (3.5-5.0) g/dL Amylase 72 (30-110) U/L Lipase 560 H (23-300) U/L Urine Color Urine Appearance (Clear) Urine pH (5.0-8.0) Urine Protein (Negative) Urine Glucose (UA) (Negative) Urine Ketones (Negative) Urine Blood (Negative) Urine Nitrite (Negative) Urine Bilirubin (Negative) Urine Urobilinogen (<2.0) mg/dL Ur Leukocyte Esterase (Negative) 08/08/18 08/08/18 Range/Units 14:30 16:30 WBC (3.8-10.6) k/uL RBC (3.80-5.40) m/uL Hgb (11.4-16.0) gm/dL Hct (34.0-46.0) % MCV (80.0-100.0) fL MCH (25.0-35.0) pg MCHC (31.0-37.0) g/dL RDW (11.5-15.5) % Plt Count (150-450) k/uL Neutrophils % % Lymphocytes % % Monocytes % % Eosinophils % % Basophils % % Neutrophils # (1.3-7.7) k/uL Lymphocytes # (1.0-4.8) k/uL Monocytes # (0-1.0) k/uL Eosinophils # (0-0.7) k/uL Basophils # (0-0.2) k/uL PT (9.0-12.0) sec INR (<1.2) APTT (22.0-30.0) sec Sodium (137-145) mmol/L Potassium (3.5-5.1) mmol/L Chloride (98-107) mmol/L Carbon Dioxide (22-30) mmol/L Anion Gap mmol/L BUN (7-17) mg/dL Creatinine (0.52-1.04) mg/dL Est GFR (CKD-EPI)AfAm (>60 ml/min/1.73 sqM) Est GFR (CKD-EPI)NonAf (>60 ml/min/1.73 sqM) Glucose (74-99) mg/dL Calcium (8.4-10.2) mg/dL Total Bilirubin (0.2-1.3) mg/dL AST (14-36) U/L ALT (9-52) U/L Alkaline Phosphatase (38-126) U/L Troponin I <0.012 (0.000-0.034) ng/mL Total Protein (6.3-8.2) g/dL Albumin (3.5-5.0) g/dL Amylase (30-110) U/L Lipase (23-300) U/L Urine Color Yellow Urine Appearance Clear (Clear) Urine pH 5.0 (5.0-8.0) Urine Protein Trace H (Negative) Urine Glucose (UA) Negative (Negative) Urine Ketones 1+ H (Negative) Urine Blood Negative (Negative) Urine Nitrite Negative (Negative) Urine Bilirubin Negative (Negative) Urine Urobilinogen <2.0 (<2.0) mg/dL Ur Leukocyte Esterase Negative (Negative) 08/08/18 15:52 EKG performed at 1445 shows normal sinus rhythm normal EKG. Ventricular rate of 65 bpm. Intervals 148 ms. QRS duration 92 ms. QT QTc is 416/432 ms. - Radiology Data Radiology results: report reviewed Findings could represent colitis diverticulitis cannot exclude exclude luminal mass follow-up with surgical consult gastroenterology consult with endoscopy is recommended. As on previous CT report before 04/13/2018. There may be likely underlying enteritis. Disposition Clinical Impression: Diverticulitis, Elevated lipase Disposition: HOME SELF-CARE Condition: Good Instructions: Diverticulitis (ED) Additional Instructions: Patient has a follow-up with primary care physician. Also needs to follow-up with heel cementer machine in regards to scheduling a colonoscopy. Patient should return to the emergency department if any alarming signs or symptoms occur. Prescriptions: Acetaminophen with Codeine [Tylenol w/codeine #3] 1 tab PO Q6H PRN 3 Days #12 tab PRN Reason: Pain Amoxic-Pot Clav 875-125Mg [Augmentin 875-125] 1 tab PO Q12HR #20 tablet Ondansetron Odt [Zofran Odt] 4 mg PO Q8HR PRN #20 tab PRN Reason: Nausea Is patient prescribed a controlled substance at d/c from ED?: Yes When asked, does pt state using other controlled substances?: No If prescribed controlled substance>3 days was MAPS reviewed?: Prescribed <3 Days If opioid is for acute pain is fill amount 7 days or less?: Yes If Rx opioid, was Start Talking consent form obtained?: Yes Referrals: Manuel Ramirez MD [Primary Care Provider] - 1-2 days Dylan Rodriguez MD [STAFF PHYSICIAN] - 1-2 days Time of Disposition: 16:24
[2018-08-08 14:52] LABS: Basophils % (A) 0 %; Eosinophils # (A) 0.2 k/uL (0-0.7); Eosinophils % (A) 1 %; HCT 49.7 % (34.0-46.0); HGB 17.1 gm/dL (11.4-16.0); Lymphocytes # (A) 1.4 k/uL (1.0-4.8); Lymphocytes % (A) 12 %; MCH 30.6 pg (25.0-35.0); MCHC 34.4 g/dL (31.0-37.0); Mean Platelet Volume 6.6; Monocytes # (A) 0.4 k/uL (0-1.0); Monocytes % (A) 4 %; Neutrophils # (A) 9.4 k/uL (1.3-7.7); Neutrophils % (A) 81 %; Platelet Count 203 k/uL (150-450); RBC 5.58 m/uL (3.80-5.40); RDW 13.2 % (11.5-15.5); WBC 11.5 k/uL (3.8-10.6)
[2018-08-08 15:08] LABS: ALT 28 U/L (9-52); AST 29 U/L (14-36); Albumin 4.3 g/dL (3.5-5.0); Alkaline Phosphatase 76 U/L (38-126); Amylase 72 U/L (30-110); Anion Gap 12 mmol/L; Blood Urea Nitrogen 17 mg/dL (7-17); Calcium 10.1 mg/dL (8.4-10.2); Carbon Dioxide 25 mmol/L (22-30); Chloride 104 mmol/L (98-107); Glucose 93 mg/dL (74-99); Lipase 560 U/L (23-300); Potassium 3.7 mmol/L (3.5-5.1); Sodium 141 mmol/L (137-145); Total Bilirubin 0.6 mg/dL (0.2-1.3)
[2018-08-08 15:09] LABS: Partial Thromboplastin Time 24.7 sec (22.0-30.0); Prothrombin Time 10.4 sec (9.0-12.0)
--- NOTE | 2018-08-08 15:45 | XR ---
EXAMINATION TYPE: XR chest 2V DATE OF EXAM: 08/08/2018 COMPARISON: Chest x-ray June 12, 2018 HISTORY: Chest and abdominal pain for couple of days. TECHNIQUE: Frontal and lateral views of the chest are obtained. FINDINGS: There is no new suspicious focal air space opacity, pleural effusion, or pneumothorax seen . The cardiac silhouette size is within normal limits. The osseous structures are intact. IMPRESSION: Persistent patchy lateral left basilar atelectasis. No new suspicious focal infiltrate.
--- NOTE | 2018-08-08 16:02 | CT ---
EXAMINATION TYPE: CT abdomen pelvis w con DATE OF EXAM: 08/08/2018 COMPARISON: Prior CT 06/12/2018 and 10/31/2017, 09/06/2017 HISTORY: abdominal pain, pancreatitis, diverticulitis history. CT DLP: 1020.9 mGycm Automated exposure control for dose reduction was used. TECHNIQUE: Helical acquisition of images from the lung bases through the pelvis have been completed. CONTRAST: Performed without Oral Contrast and with IV Contrast, patient injected with 100 mL of Isovue 300. FINDINGS: LUNG BASES: No significant abnormality is appreciated. AORTA: No significant abnormality is appreciated. LIVER/GB: No significant abnormality is appreciated. PANCREAS: No significant abnormality is seen. SPLEEN: No significant abnormality is seen. ADRENALS: No significant abnormality is seen. KIDNEYS: No significant abnormality is seen. REPRODUCTIVE ORGANS: Not seen BOWEL: Some distended loops of small bowel are noted with some loops showing wall thickening. No justin dent obstruction. The appendix is normal. Extensive diverticular changes noted in the sigmoid colon. Again noted is wall thickening, distention of the sigmoid colon. FREE AIR: No Free Air visible. ASCITES: None visible. PELVIC ADENOPATHY: None visualized. RETROPERITONEAL ADENOPATHY: No Retroperitoneal Adenopathy visible. URINARY BLADDER: No significant abnormality is seen. OSSEOUS STRUCTURES: No significant interval change is seen. IMPRESSION: FINDINGS COULD REPRESENT COLITIS, DIVERTICULITIS, CANNOT EXCLUDE LUMINAL MASS, FOLLOW-UP SURGICAL CON SULT GASTROENTEROLOGY CONSULT WITH ENDOSCOPY IS RECOMMENDED ON PREVIOUS CT REPORT 10/31/2017. THERE MAY BE UNDERLYING ENTERITIS.
[2018-08-08] MEDS ORDERED: MORPHINE SULFATE 4 MG/ML SYRINGE IVP STA (16:48)
[2018-08-08 17:01] LABS: Appearance,Urine Clear (Clear); Bilirubin,Urine Negative (Negative); Blood,Urine Negative (Negative); Color,Urine Yellow; Glucose,Urine (UA) Negative (Negative); Ketones,Urine 1+ (Negative); Leukocyte Esterase,Urine Negative (Negative); Nitrite,Urine Negative (Negative); Protein,Urine Trace (Negative); Urobilinogen,Urine <2.0 mg/dL (<2.0)
[2018-08-08 17:22] VITALS: BP 127/82; PULSE 78; TEMP 97.7
[2018-08-08 17:22] LABS: Specific Gravity,Urine 1.047 (1.001-1.035)
== END 2018-08-08 17:34 | disposition home or self-care (01) ==
LOC: EC 12:38
DX: K57.92 Diverticulitis of intestine, part unspecified, without perforation or abscess without bleeding (principal); R74.8 Abnormal levels of other serum enzymes; R11.0 Nausea; J45.909 Unspecified asthma, uncomplicated; F17.200 Nicotine dependence, unspecified, uncomplicated; Z79.899 Other long term (current) drug therapy; Z88.6 Allergy status to analgesic agent; Z86.711 Personal history of pulmonary embolism
CPT/HCPCS: 36415; 93005; 80053; 82150; 83690; 84484; 85025; 85610; 85730; 81003; 71046; 74177; 99285; 96374; 96375; 96376; 96361 ×3; J2270 ×2; J2405; Q9967

== ENCOUNTER 2019-03-20 15:52 | Emergency (ER) | payer OTHER ==
[2019-03-20 15:57] VITALS: TEMP 98.1
[2019-03-20] MEDS ORDERED: SODIUM CHLORIDE 0.9% 1,000 ML IV STA (16:14)
[2019-03-20 16:55] LABS: Basophils # (A) 0.1 k/uL (0-0.2); Basophils % (A) 1 %; Eosinophils # (A) 0.2 k/uL (0-0.7); Eosinophils % (A) 2 %; HCT 47.5 % (34.0-46.0); HGB 15.8 gm/dL (11.4-16.0); Lymphocytes % (A) 34 %; MCH 29.1 pg (25.0-35.0); MCHC 33.3 g/dL (31.0-37.0); MCV 87.4 fL (80.0-100.0); Mean Platelet Volume 6.5; Monocytes # (A) 0.7 k/uL (0-1.0); Monocytes % (A) 8 %; Neutrophils # (A) 4.5 k/uL (1.3-7.7); Neutrophils % (A) 52 %; Platelet Count 292 k/uL (150-450); RBC 5.43 m/uL (3.80-5.40); WBC 8.6 k/uL (3.8-10.6)
[2019-03-20 16:57] LABS: Appearance,Urine Clear (Clear); Bilirubin,Urine Negative (Negative); Blood,Urine Negative (Negative); Color,Urine Yellow; Glucose,Urine (UA) Negative (Negative); Ketones,Urine Negative (Negative); Leukocyte Esterase,Urine Negative (Negative); Nitrite,Urine Negative (Negative); Protein,Urine Trace (Negative); Specific Gravity,Urine 1.031 (1.001-1.035)
[2019-03-20] MEDS ORDERED: ONDANSETRON 4 MG/2 ML VIAL IVP STA (17:00)
[2019-03-20] MEDS ORDERED: MORPHINE SULFATE 4 MG/ML SYRINGE IV STA (17:00)
[2019-03-20 17:06] LABS: ALT 18 U/L (9-52); AST 31 U/L (14-36); African American GFR (CKD) >90 (>60 ml/min/1.73 sqM); Albumin 4.3 g/dL (3.5-5.0); Alkaline Phosphatase 71 U/L (38-126); Anion Gap 9 mmol/L; Blood Urea Nitrogen 13 mg/dL (7-17); Calcium 9.5 mg/dL (8.4-10.2); Carbon Dioxide 25 mmol/L (22-30); Chloride 104 mmol/L (98-107); Glucose 94 mg/dL (74-99); Sodium 138 mmol/L (137-145); Total Bilirubin 0.7 mg/dL (0.2-1.3); Total Protein 7.9 g/dL (6.3-8.2)
[2019-03-20 17:08] LABS: Potassium 4.3 mmol/L (3.5-5.1)
--- NOTE | 2019-03-20 18:29 | CT ---
EXAMINATION TYPE: CT abdomen pelvis w con DATE OF EXAM: 03/20/2019 COMPARISON: 08/08/2018 CT HISTORY: Left sided pain. CT DLP: 1253.2 mGycm Automated exposure control for dose reduction was used. TECHNIQUE: Helical acquisition of images was performed from the lung bases through the pelvis. CONTRAST: Performed without Oral Contrast and with IV Contrast, patient injected with 100 mL of Isovu e 300. FINDINGS: LUNG BASES: No significant abnormality is appreciated. LIVER/GB: No significant abnormality is appreciated. PANCREAS: No significant abnormality is seen. SPLEEN: No significant abnormality is seen. ADRENALS: No significant abnormality is seen. KIDNEYS: No significant abnormality is seen. FREE AIR: No free air is visualized. RETROPERITONEAL ADENOPATHY: None visualized REPRODUCTIVE ORGANS: No significant abnormality is seen URINARY BLADDER: No significant abnormality is seen. PELVIC ADENOPATHY: None visualized. OSSEOUS STRUCTURES: No significant abnormality is seen. BOWEL: Sigmoid colon shows circumferential mural thickening, which is prominent, and a mild plus pat tern of pericolonic edematous reticulation of the sigmoid mesocolon. These findings are consistent wi th mild plus sigmoid diverticulitis in the same area affected on the prior study. There is no bowel o bstruction or abnormal fluid or gas collection. There are innumerable diverticula seen throughout the descending and sigmoid colon. The previously seen multifocal subcentimeter short axis lymph nodes th roughout the sigmoid mesocolon are redemonstrated, with the largest lymph node seen at the root of th e sigmoid mesocolon on axial image 56, measuring 15 x 11 mm in axial cross section. OTHER: No acute vascular findings. IMPRESSION: MILD-PLUS SIGMOID DIVERTICULITIS WITH LYMPH NODES. If Not Recently Obtained, Eventual Follow-Up And Direct Visualization Is Requested To Ensure Normal U nderlying Mucosa.
[2019-03-20] MEDS ORDERED: AMOXIC-POT CLAV 875MG STARTER 2 EACH TABLET PO STA (18:37)
[2019-03-20] MEDS ORDERED: AMOXIC-POT CLAV 875-125MG 1 EACH TAB PO STA (18:50)
--- NOTE | 2019-03-20 18:51 | ED ---
General Adult HPI - General Chief complaint: Abdominal Pain Stated complaint: poss diverticulitis flare Time Seen by Provider: 03/20/19 16:14 Source: patient, RN notes reviewed, old records reviewed Mode of arrival: ambulatory Limitations: no limitations - History of Present Illness Initial comments: 58-year-old female patient past history significant for chronic pancreatitis, prior history of diverticulitis presents ED approximately 2 weeks of waxing and waning left lower quadrant pain. Patient wanted this is similar to diverticulitis of the past. Denies any other complaints at this time. Systemic: Pt denies fatigue, fever/chills, rash. Pt denies weakness, night sweats, weight loss. Neuro: Pt denies headache, visual disturbances, syncope or pre-syncope. HEENT: Pt denies ocular discharge or irritation, otalgia, rhinorrhea, pharyngitis or notable lymphadenopathy. Cardiopulmonary: Pt denies chest pain, SOB, heart palpitations, dyspnea on exe rtion. Abdominal/GI: Pt denies abdominal pain, n/v/d. : Pt denies dysuria, burning w/ urination, frequency/urgency. Denies new onset urinary or bowel incontinence. MSK: Pt denies myalgia, loss of strength or function in extremities. Neuro: Pt denies new onset weakness, paresthesias. - Related Data Home Medications Medication Instructions Recorded Confirmed Multivitamins, Thera [Multivitamin 1 tab PO DAILY 01/29/16 03/20/19 (formulary)] Albuterol Inhaler [Ventolin Hfa 1 - 2 puff INHALATION RT-Q6H PRN 06/12/18 03/20/19 Inhaler] Albuterol Nebulized [Ventolin 2.5 mg INHALATION RT-Q4H PRN 08/08/18 03/20/19 Nebulized] Previous Rx's Medication Instructions Recorded Amoxicillin/Potassium Clav 1 each PO Q12HR #20 tab 03/20/19 [Augmentin 875-125 Tablet] Allergies Allergy/AdvReac Type Severity Reaction Status Date / Time ibuprofen AdvReac Abdominal Verified 03/20/19 16:34 Pain Review of Systems ROS Statement: Those systems with pertinent positive or pertinent negative responses have been documented in the HPI. ROS Other: All systems not noted in ROS Statement are negative. Past Medical History Past Medical History: Asthma, COPD, Fibromyalgia, Hyperlipidemia, Hypertension, Osteoarthritis (OA), Pulmonary Embolus (PE) Additional Past Medical History / Comment(s): Pancreatitis, chronic pain, DDD, DJD, cervical/back pain/bilateral scoliosis, spondylosisi, neuropathy bilateral hands and feet, pulmonary embolism R lung, brain aneurysm being monitored, diverticulosis. History of Any Multi-Drug Resistant Organisms: None Reported Past Surgical History: Hysterectomy, Tubal Ligation Additional Past Surgical History / Comment(s): D&C, angiograms d/t cerebral aneurysm. Past Anesthesia/Blood Transfusion Reactions: No Reported Reaction Past Psychological History: Anxiety, Depression Smoking Status: Current every day smoker Past Alcohol Use History: None Reported Past Drug Use History: Marijuana - Past Family History Mother Family Medical History: Cancer, Coronary Artery Disease (CAD) Additional Family Medical History / Comment(s): Mother had uterine cancer. Sister(s) Family Medical History: Cancer, Neurologic Disorder Additional Family Medical History / Comment(s): parkinsonism. Brother(s) Family Medical History: Cancer Additional Family Medical History / Comment(s): Pt had 2 brothers with cancer. General Exam - General Exam Comments Initial Comments: Constitutional: NAD, AOX3, Pt has pleasant affect. HEENT: NC/AT, trachea midline, neck supple, no lymphadenopathy. Posterior pharynx non erythematous, without exudates. External ears appear normal, without discharge. Mucous membranes moist. Eyes PERRLA, EOM intact. There is no scleral icterus. No pallor noted. Cardiopulmonary: RRR, no murmurs, rubs or gallops, no JVD noted. Lungs CTAB in anterior and posterior villalobos. No peripheral edema. Abdominal exam: Abdomen soft and non-distended. Abdomen mild tender to palpation in left lower quadrant region. No other areas of abdominal tenderness.. Bowel sounds active in LLQ. No hepatosplenomegaly. No ecchymosis Neuro: CN II-XII grossly intact. No nuchal rigidity. No raccon eyes, no min sign, no hemotympanum. No cervical spinal tenderness. MSK: No posterior calf tenderness bilaterally, homans sign negative bilaterally. Posterior tibialis and radial pulse +2 bilaterally. Sensation intact in upper and lower extremities. Full active ROM in upper and lower extremities, 5/5 stregnth. Limitations: no limitations Course Vital Signs 03/20/19 15:53 Temperature 98.1 F Pulse Rate 82 Respiratory 16 Rate Blood Pressure 126/80 O2 Sat by Pulse 97 Oximetry Medical Decision Making - Medical Decision Making 58-year-old female patient past history significant for chronic pancreatitis, prior history of diverticulitis presents ED approximately 2 weeks of waxing and waning left lower quadrant pain. Patient wanted this is similar to divert iculitis of the past. Denies any other complaints at this time. Pt VSS, afebrile. Physical exam displayed: Abdomen soft and non-distended. Abdomen mild tender to palpation in left lower quadrant region. No other areas of abdominal tenderness. Laboratory investigations revealed mildly elevated lipase, lower than baseline. Otherwise non-impressive. CT abdomen pelvis displayed mild plus sigmoid diverticulitis with lymph nodes. Patient offered admission, declined, would prefer to be discharged. Patient discharged with Augmentin and GI as well as primary care provider follow-up. Case discussed with Dr. Cleaning. - Lab Data Result diagrams: 03/20/19 16:20 03/20/19 16:20 Lab Results 03/20/19 03/20/19 03/20/19 Range/Units 16:20 16:20 16:20 WBC 8.6 (3.8-10.6) k/uL RBC 5.43 H (3.80-5.40) m/uL Hgb 15.8 (11.4-16.0) gm/dL Hct 47.5 H (34.0-46.0) % MCV 87.4 (80.0-100.0) fL MCH 29.1 (25.0-35.0) pg MCHC 33.3 (31.0-37.0) g/dL RDW 13.0 (11.5-15.5) % Plt Count 292 (150-450) k/uL Neutrophils % 52 % Lymphocytes % 34 % Monocytes % 8 % Eosinophils % 2 % Basophils % 1 % Neutrophils # 4.5 (1.3-7.7) k/uL Lymphocytes # 3.0 (1.0-4.8) k/uL Monocytes # 0.7 (0-1.0) k/uL Eosinophils # 0.2 (0-0.7) k/uL Basophils # 0.1 (0-0.2) k/uL Sodium 138 (137-145) mmol/L Potassium 4.3 (3.5-5.1) mmol/L Chloride 104 (98-107) mmol/L Carbon Dioxide 25 (22-30) mmol/L Anion Gap 9 mmol/L BUN 13 (7-17) mg/dL Creatinine 0.46 L (0.52-1.04) mg/dL Est GFR (CKD-EPI)AfAm >90 (>60 ml/min/1.73 sqM) Est GFR (CKD-EPI)NonAf >90 (>60 ml/min/1.73 sqM) Glucose 94 (74-99) mg/dL Plasma Lactic Acid [place] 0.7 (0.7-2.0) mmol/L Calcium 9.5 (8.4-10.2) mg/dL Total Bilirubin 0.7 (0.2-1.3) mg/dL AST 31 (14-36) U/L ALT 18 (9-52) U/L Alkaline Phosphatase 71 (38-126) U/L Total Protein 7.9 (6.3-8.2) g/dL Albumin 4.3 (3.5-5.0) g/dL Lipase 430 H (23-300) U/L Urine Color Urine Appearance (Clear) Urine pH (5.0-8.0) Ur Specific [place] (1.001-1.035) Urine Protein (Negative) Urine Glucose (UA) (Negative) Urine Ketones (Negative) Urine Blood (Negative) Urine Nitrite (Negative) Urine Bilirubin (Negative) Urine Urobilinogen (<2.0) mg/dL Ur Leukocyte Esterase (Negative) 03/20/19 Range/Units 16:20 WBC (3.8-10.6) k/uL RBC (3.80-5.40) m/uL Hgb (11.4-16.0) gm/dL Hct (34.0-46.0) % MCV (80.0-100.0) fL MCH (25.0-35.0) pg MCHC (31.0-37.0) g/dL RDW (11.5-15.5) % Plt Count (150-450) k/uL Neutrophils % % Lymphocytes % % Monocytes % % Eosinophils % % Basophils % % Neutrophils # (1.3-7.7) k/uL Lymphocytes # (1.0-4.8) k/uL Monocytes # (0-1.0) k/uL Eosinophils # (0-0.7) k/uL Basophils # (0-0.2) k/uL Sodium (137-145) mmol/L Potassium (3.5-5.1) mmol/L Chloride (98-107) mmol/L Carbon Dioxide (22-30) mmol/L Anion Gap mmol/L BUN (7-17) mg/dL Creatinine (0.52-1.04) mg/dL Est GFR (CKD-EPI)AfAm (>60 ml/min/1.73 sqM) Est GFR (CKD-EPI)NonAf (>60 ml/min/1.73 sqM) Glucose (74-99) mg/dL Plasma Lactic Acid [place] (0.7-2.0) mmol/L Calcium (8.4-10.2) mg/dL Total Bilirubin (0.2-1.3) mg/dL AST (14-36) U/L ALT (9-52) U/L Alkaline Phosphatase (38-126) U/L Total Protein (6.3-8.2) g/dL Albumin (3.5-5.0) g/dL Lipase (23-300) U/L Urine Color Yellow Urine Appearance Clear (Clear) Urine pH 5.0 (5.0-8.0) Ur Specific [place] 1.031 (1.001-1.035) Urine Protein Trace H (Negative) Urine Glucose (UA) Negative (Negative) Urine Ketones Negative (Negative) Urine Blood Negative (Negative) Urine Nitrite Negative (Negative) Urine Bilirubin Negative (Negative) Urine Urobilinogen 3.0 (<2.0) mg/dL Ur Leukocyte Esterase Negative (Negative) Disposition Clinical Impression: Diverticulitis Disposition: HOME SELF-CARE Condition: Stable Instructions (If sedation given, give patient instructions): Diverticulitis (ED) Additional Instructions: Patient to adhere to previously discussed treatment plan and will take me dication(s) as directed. Patient to follow up with PCP in 1-2 days. Patient to return to ED if symptoms do not improve. Follow-up with primary care provider as well as GI consult tomorrow. Return to ER if condition worsens. Take medication as directed. Prescriptions: Amoxicillin/Potassium Clav [Augmentin 875-125 Tablet] 1 each PO Q12HR #20 tab Is patient prescribed a controlled substance at d/c from ED?: No Referrals: Manuel Ramirez MD [Primary Care Provider] - 1-2 days Dylan Rodriguez MD [STAFF PHYSICIAN] - 1-2 days
[2019-03-20 19:35] VITALS: BP 121/81; PULSE 72; RESP 17
== END 2019-03-20 19:19 | disposition home or self-care (01) ==
LOC: EC 15:52
DX: K57.32 Diverticulitis of large intestine without perforation or abscess without bleeding (principal); J44.9 Chronic obstructive pulmonary disease, unspecified; F17.200 Nicotine dependence, unspecified, uncomplicated; Z88.6 Allergy status to analgesic agent; Z86.711 Personal history of pulmonary embolism
CPT/HCPCS: 36415; 80053; 83605; 83690; 85025; 81003; 74177; 99284; 96374; 96375; 96361; J2270; J2405; Q9967

== ENCOUNTER 2019-11-20 12:17 | Emergency (ER) | payer OTHER ==
[2019-11-20] MEDS ORDERED: MORPHINE SULFATE 4 MG/ML SYRINGE IV STA (12:53)
[2019-11-20] MEDS ORDERED: ONDANSETRON 4 MG/2 ML VIAL IVP STA (12:53)
[2019-11-20] MEDS ORDERED: SODIUM CHLORIDE 0.9% 1,000 ML IV STA ×2 (12:53)
[2019-11-20] MEDS ORDERED: HYDROmorphone 0.5 MG/0.5 ML SYRINGE IVP STA (13:26)
[2019-11-20 13:30] LABS: Basophils # (A) 0.1 k/uL (0-0.2); Basophils % (A) 1 %; Eosinophils # (A) 0.3 k/uL (0-0.7); Eosinophils % (A) 3 %; HCT 45.8 % (34.0-46.0); HGB 15.5 gm/dL (11.4-16.0); Lymphocytes % (A) 27 %; MCH 30.1 pg (25.0-35.0); MCHC 33.8 g/dL (31.0-37.0); MCV 89.1 fL (80.0-100.0); Monocytes # (A) 0.5 k/uL (0-1.0); Monocytes % (A) 5 %; Neutrophils % (A) 64 %; Platelet Count 305 k/uL (150-450); RBC 5.14 m/uL (3.80-5.40); RDW 13.1 % (11.5-15.5)
[2019-11-20 13:42] LABS: Appearance,Urine Clear (Clear); Bilirubin,Urine Negative (Negative); Blood,Urine Negative (Negative); Color,Urine Yellow; Glucose,Urine (UA) Negative (Negative); Ketones,Urine Negative (Negative); Leukocyte Esterase,Urine Negative (Negative); Nitrite,Urine Negative (Negative); Protein,Urine Negative (Negative); Specific Gravity,Urine 1.015 (1.001-1.035); Urobilinogen,Urine <2.0 mg/dL (<2.0)
--- NOTE | 2019-11-20 13:45 | ED ---
Abdominal Pain HPI - General Chief Complaint: Abdominal Pain Stated Complaint: diverticulitis Time Seen by Provider: 11/20/19 12:26 Source: patient, RN notes reviewed, old records reviewed Mode of arrival: ambulatory Limitations: no limitations - History of Present Illness Initial Comments: Kamryn is a 51-year-old female presents emergency department today with chief complaint of abdominal pain, concerns for pancreatitis versus diverticulitis. She reports she's been having these symptoms off and on for the past 3 weeks. She stated that she was concerned with the code crisis and pandemic that she did not want to be seen. She reports the pain got worse the past day and decided to be seen. She denies any fevers. Denies any UTI symptoms dysuria or hematuria. Patient denies any bloody emesis or bloody stools. - Related Data Home Medications Medication Instructions Recorded Confirmed Multivitamins, Thera [Multivitamin 1 tab PO DAILY 01/29/16 03/20/19 (formulary)] Albuterol Inhaler (Mhu) [Ventolin 1 - 2 puff INHALATION RT-Q6H PRN 06/12/18 03/20/19 Hfa Inhaler (Mhu)] Albuterol Nebulized [Ventolin 2.5 mg INHALATION RT-Q4H PRN 08/08/18 03/20/19 Nebulized] Previous Rx's Medication Instructions Recorded Amoxicillin/Potassium Clav 1 each PO Q12HR #20 tab 03/20/19 [Augmentin 875-125 Tablet] Amoxic-Pot Clav 875-125Mg 1 tab PO Q12HR #20 tablet 11/20/19 [Augmentin 875-125] Allergies Allergy/AdvReac Type Severity Reaction Status Date / Time ibuprofen AdvReac Abdominal Verified 11/20/19 12:24 Pain Review of Systems ROS Statement: Those systems with pertinent positive or pertinent negative responses have been documented in the HPI. ROS Other: All systems not noted in ROS Statement are negative. Past Medical History Past Medical History: Asthma, COPD, Fibromyalgia, Hyperlipidemia, Hypertension, Osteoarthritis (OA), Pulmonary Embolus (PE) Additional Past Medical History / Comment(s): Pancreatitis, chronic pain, DDD, DJD, cervical/back pain/bilateral scoliosis, spondylosisi, neuropathy bilateral hands and feet, pulmonary embolism R lung, brain aneurysm being monitored, diverticulosis. History of Any Multi-Drug Resistant Organisms: None Reported Past Surgical History: Hysterectomy, Tubal Ligation Additional Past Surgical History / Comment(s): D&C, angiograms d/t cerebral aneurysm. Past Anesthesia/Blood Transfusion Reactions: No Reported Reaction Past Psychological History: Anxiety, Depression Smoking Status: Current every day smoker Past Alcohol Use History: None Reported Past Drug Use History: Marijuana - Past Family History Mother Family Medical History: Cancer, Coronary Artery Disease (CAD) Additional Family Medical History / Comment(s): Mother had uterine cancer. Sister(s) Family Medical History: Cancer, Neurologic Disorder Additional Family Medical History / Comment(s): parkinsonism. Brother(s) Family Medical History: Cancer Additional Family Medical History / Comment(s): Pt had 2 brothers with cancer. General Exam - General Exam Comments Initial Comments: 59 yo female. No distress. Limitations: no limitations General appearance: alert, in no apparent distress Head exam: Present: atraumatic, normocephalic, normal inspection Eye exam: Present: normal appearance, PERRL, EOMI. Absent: scleral icterus, conjunctival injection, periorbital swelling ENT exam: Present: normal exam, mucous membranes moist Neck exam: Present: normal inspection. Absent: tenderness, meningismus, lymphadenopathy Respiratory exam: Present: normal lung sounds bilaterally. Absent: respiratory distress, wheezes, rales, rhonchi, stridor Cardiovascular Exam: Present: regular rate, normal rhythm, normal heart sounds. Absent: systolic murmur, diastolic murmur, rubs, gallop, clicks GI/Abdominal exam: Present: soft, normal bowel sounds. Absent: distended, tenderness, guarding, rebound, rigid Extremities exam: Present: normal inspection, full ROM, normal capillary refill. Absent: tenderness, pedal edema, joint swelling, calf tenderness Back exam: Present: normal inspection Neurological exam: Present: alert, oriented X3, CN II-XII intact Psychiatric exam: Present: normal affect, normal mood Skin exam: Present: warm, dry, intact, normal color. Absent: rash Course Vital Signs 11/20/19 11/20/19 11/20/19 12:22 14:13 14:57 Temperature 98.3 F 97.9 F Pulse Rate 91 78 Respiratory 20 18 Rate Blood Pressure 138/81 145/88 O2 Sat by Pulse 99 95 Oximetry Medical Decision Making - Medical Decision Making Patient is a 59-year-old female who presents emergency department today with chief complaint of lower abdominal pain, complains of some nausea. Concern for peptic otitis versus diverticulitis. At this time patient's labwork was reviewed by unremarkable. due to abdominal tenderness patient had ct. ct she is evidence of early diverticulitis versus possible underlying neoplasm. i discussed the findings with the patient and she is to follow-up with getting a colonoscopy. the meantime treating with antibiotics of augmentin. patient understands treatment plan will comply. return parameters were discussed. - Lab Data Result diagrams: 11/20/19 13:10 11/20/19 13:10 Lab Results 11/20/19 11/20/19 11/20/19 Range/Units 12:36 13:10 13:10 WBC 11.0 H (3.8-10.6) k/uL RBC 5.14 (3.80-5.40) m/uL Hgb 15.5 (11.4-16.0) gm/dL Hct 45.8 (34.0-46.0) % MCV 89.1 (80.0-100.0) fL MCH 30.1 (25.0-35.0) pg MCHC 33.8 (31.0-37.0) g/dL RDW 13.1 (11.5-15.5) % Plt Count 305 (150-450) k/uL Neutrophils % 64 % Lymphocytes % 27 % Monocytes % 5 % Eosinophils % 3 % Basophils % 1 % Neutrophils # 7.0 (1.3-7.7) k/uL Lymphocytes # 3.0 (1.0-4.8) k/uL Monocytes # 0.5 (0-1.0) k/uL Eosinophils # 0.3 (0-0.7) k/uL Basophils # 0.1 (0-0.2) k/uL PT 10.0 (9.0-12.0) sec INR 1.0 (<1.2) APTT 21.9 L (22.0-30.0) sec Sodium (137-145) mmol/L Potassium (3.5-5.1) mmol/L Chloride (98-107) mmol/L Carbon Dioxide (22-30) mmol/L Anion Gap mmol/L BUN (7-17) mg/dL Creatinine (0.52-1.04) mg/dL Est GFR (CKD-EPI)AfAm (>60 ml/min/1.73 sqM) Est GFR (CKD-EPI)NonAf (>60 ml/min/1.73 sqM) Glucose (74-99) mg/dL Calcium (8.4-10.2) mg/dL Total Bilirubin (0.2-1.3) mg/dL AST (14-36) U/L ALT (4-34) U/L Alkaline Phosphatase (38-126) U/L Total Protein (6.3-8.2) g/dL Albumin (3.5-5.0) g/dL Amylase (30-110) U/L Lipase (23-300) U/L Urine Color Yellow Urine Appearance Clear (Clear) Urine pH 5.0 (5.0-8.0) Ur Specific [place] 1.015 (1.001-1.035) Urine Protein Negative (Negative) Urine Glucose (UA) Negative (Negative) Urine Ketones Negative (Negative) Urine Blood Negative (Negative) Urine Nitrite Negative (Negative) Urine Bilirubin Negative (Negative) Urine Urobilinogen <2.0 (<2.0) mg/dL Ur Leukocyte Esterase Negative (Negative) 11/20/19 Range/Units 13:10 WBC (3.8-10.6) k/uL RBC (3.80-5.40) m/uL Hgb (11.4-16.0) gm/dL Hct (34.0-46.0) % MCV (80.0-100.0) fL MCH (25.0-35.0) pg MCHC (31.0-37.0) g/dL RDW (11.5-15.5) % Plt Count (150-450) k/uL Neutrophils % % Lymphocytes % % Monocytes % % Eosinophils % % Basophils % % Neutrophils # (1.3-7.7) k/uL Lymphocytes # (1.0-4.8) k/uL Monocytes # (0-1.0) k/uL Eosinophils # (0-0.7) k/uL Basophils # (0-0.2) k/uL PT (9.0-12.0) sec INR (<1.2) APTT (22.0-30.0) sec Sodium 139 (137-145) mmol/L Potassium 3.9 (3.5-5.1) mmol/L Chloride 107 (98-107) mmol/L Carbon Dioxide 24 (22-30) mmol/L Anion Gap 8 mmol/L BUN 16 (7-17) mg/dL Creatinine 0.60 (0.52-1.04) mg/dL Est GFR (CKD-EPI)AfAm >90 (>60 ml/min/1.73 sqM) Est GFR (CKD-EPI)NonAf >90 (>60 ml/min/1.73 sqM) Glucose 88 (74-99) mg/dL Calcium 9.6 (8.4-10.2) mg/dL Total Bilirubin 0.4 (0.2-1.3) mg/dL AST 19 (14-36) U/L ALT 12 (4-34) U/L Alkaline Phosphatase 69 (38-126) U/L Total Protein 7.7 (6.3-8.2) g/dL Albumin 4.2 (3.5-5.0) g/dL Amylase 54 (30-110) U/L Lipase 218 (23-300) U/L Urine Color Urine Appearance (Clear) Urine pH (5.0-8.0) Ur Specific [place] (1.001-1.035) Urine Protein (Negative) Urine Glucose (UA) (Negative) Urine Ketones (Negative) Urine Blood (Negative) Urine Nitrite (Negative) Urine Bilirubin (Negative) Urine Urobilinogen (<2.0) mg/dL Ur Leukocyte Esterase (Negative) 11/20/19 13:48 EKG shows normal sinus rhythm normal EKG. Ventricular rate of 70 bpm.. Intervals 160 ms. QS duration is 90 ms. QT QTc is 398/453 ms. - Radiology Data Radiology results: report reviewed There is diffuse thickening and nausea the sigmoid colon. Underlying neoplasm or mild acute diverticulitis can be considered. Follow-up as recommended. Disposition Clinical Impression: Diverticulitis Disposition: HOME SELF-CARE Condition: Good Instructions (If sedation given, give patient instructions): Diverticulitis (ED) Additional Instructions: Patient is a bland clear liquid diet. Recommended follow-up with surgery for a colonoscopy once this current infection clears up. Take the entire prescription of antibiotic. Return to the emergency department if any alarming signs or symptoms occur. Prescriptions: Amoxic-Pot Clav 875-125Mg [Augmentin 875-125] 1 tab PO Q12HR #20 tablet Is patient prescribed a controlled substance at d/c from ED?: No Referrals: None,Stated [Primary Care Provider] - 1-2 days Julia Vilchis MD [STAFF PHYSICIAN] - 1-2 days Dominick Reaves MD [STAFF PHYSICIAN] - 1-2 days Time of Disposition: 14:43
[2019-11-20 13:50] LABS: ALT 12 U/L (4-34); AST 19 U/L (14-36); African American GFR (CKD) >90 (>60 ml/min/1.73 sqM); Albumin 4.2 g/dL (3.5-5.0); Alkaline Phosphatase 69 U/L (38-126); Amylase 54 U/L (30-110); Anion Gap 8 mmol/L; Blood Urea Nitrogen 16 mg/dL (7-17); Calcium 9.6 mg/dL (8.4-10.2); Carbon Dioxide 24 mmol/L (22-30); Chloride 107 mmol/L (98-107); Glucose 88 mg/dL (74-99); Non-African American GFR(CKD) >90 (>60 ml/min/1.73 sqM); Potassium 3.9 mmol/L (3.5-5.1); Sodium 139 mmol/L (137-145); Total Bilirubin 0.4 mg/dL (0.2-1.3); Total Protein 7.7 g/dL (6.3-8.2)
[2019-11-20 13:58] LABS: Partial Thromboplastin Time 21.9 sec (22.0-30.0)
[2019-11-20 14:14] VITALS: BP 145/88; PULSE 78; RESP 18
--- NOTE | 2019-11-20 14:34 | CT ---
EXAMINATION TYPE: CT abdomen pelvis w con DATE OF EXAM: 11/20/2019 COMPARISON: 03/20/2019 INDICATION: Abdominal pain DLP: 1146.8 mGycm, Automated exposure control for dose reduction was used. CONTRAST: 100 ml mL of Isovue 300. Study performed without Oral Contrast TECHNIQUE: Axial images were obtained from above the diaphragm to the pubic rami in the axial plane a t 5 mm thick sections. Reconstructed images are reviewed on the computer in the coronal plane. FINDINGS: Limited CT sections are obtained the lung bases. . Minimal compressive atelectasis may be within the dependent portions of the lung bases. CT ABDOMEN: Liver: Normal Spleen: Normal Pancreas: Normal Adrenal glands: The adrenal glands are normal. Gallbladder: Normal Kidneys: No masses are evident. No hydronephrosis is present. No cysts are present. Delayed images were obtained through the kidneys, which remain unremarkable. Aorta: Vascular calcification is within the aorta. Inferior vena cava: Normal. CT PELVIS: Loops of bowel within the abdomen are unremarkable. Studies without oral contrast causing some limita tion. There are multiple diverticular changes within the sigmoid colon. Adjacent inflammatory changes are n ot evident. However, there is diffuse thickening within the mid sigmoid colon. Correlate for very mil d diverticulitis. Underlying neoplasm should be considered. This is somewhat more prominent than the comparison. Follow-up is recommended. No changes suggest obstruction are evident. Appendix: Normal as visualized. Urinary bladder: Normal. Genitourinary structures: Uterus is not identified. Adnexal regions are clear. Osseous structures: No suspicious lytic or sclerotic lesions. IMPRESSIONS: 1. There is diffuse thickening and enlargement of the mid sigmoid colon. Underlying neoplasm or feng y mild acute diverticulitis could be considered. Follow-up is recommended.
[2019-11-20 14:58] VITALS: TEMP 97.9
== END 2019-11-20 14:58 | disposition home or self-care (01) ==
LOC: EC 12:17
DX: K57.32 Diverticulitis of large intestine without perforation or abscess without bleeding (principal); J44.9 Chronic obstructive pulmonary disease, unspecified; F17.200 Nicotine dependence, unspecified, uncomplicated; Z79.51 Long term (current) use of inhaled steroids; Z87.19 Personal history of other diseases of the digestive system; Z88.6 Allergy status to analgesic agent
CPT/HCPCS: 36415; 93005; 80053; 82150; 83690; 85025; 85610; 85730; 81003; 74177; 99285; 96374; 96361 ×2; J2405; Q9967

== ENCOUNTER 2020-09-07 18:17 | Inpatient (IN) | payer OTHER ==
[2020-09-07] MEDS ORDERED: SODIUM CHLORIDE 0.9% 500 ML 500 ML IV STA (18:44)
[2020-09-07] MEDS ORDERED: HYDROmorphone 0.5 MG/0.5 ML SYRINGE IVP STA (18:44)
[2020-09-07 19:00] LABS: Basophils # (A) 0.1 k/uL (0-0.2); Basophils % (A) 1 %; Eosinophils # (A) 0.5 k/uL (0-0.7); Eosinophils % (A) 4 %; HCT 43.4 % (34.0-46.0); HGB 14.5 gm/dL (11.4-16.0); Lymphocytes # (A) 2.8 k/uL (1.0-4.8); Lymphocytes % (A) 23 %; MCH 29.3 pg (25.0-35.0); MCHC 33.5 g/dL (31.0-37.0); MCV 87.5 fL (80.0-100.0); Mean Platelet Volume 6.9; Monocytes # (A) 0.8 k/uL (0-1.0); Monocytes % (A) 7 %; Neutrophils # (A) 7.7 k/uL (1.3-7.7); Neutrophils % (A) 64 %; Platelet Count 374 k/uL (150-450); RBC 4.95 m/uL (3.80-5.40); RDW 13.1 % (11.5-15.5)
[2020-09-07 19:03] LABS: Appearance,Urine Clear (Clear); Bilirubin,Urine Negative (Negative); Blood,Urine Negative (Negative); Color,Urine Colorless; Glucose,Urine (UA) Negative (Negative); Ketones,Urine Negative (Negative); Leukocyte Esterase,Urine Negative (Negative); Nitrite,Urine Negative (Negative); Protein,Urine Negative (Negative); Specific Gravity,Urine 1.003 (1.001-1.035); Urobilinogen,Urine <2.0 mg/dL (<2.0)
[2020-09-07 19:13] LABS: ALT 9 U/L (4-34); AST 18 U/L (14-36); African American GFR (CKD) >90 (>60 ml/min/1.73 sqM); Albumin 4.1 g/dL (3.5-5.0); Alkaline Phosphatase 81 U/L (38-126); Amylase 149 U/L (30-110); Anion Gap 8 mmol/L; Blood Urea Nitrogen 12 mg/dL (7-17); Calcium 9.6 mg/dL (8.4-10.2); Carbon Dioxide 29 mmol/L (22-30); Chloride 102 mmol/L (98-107); Glucose 89 mg/dL (74-99); Lipase 1425 U/L (23-300); Non-African American GFR(CKD) >90 (>60 ml/min/1.73 sqM); Potassium 3.9 mmol/L (3.5-5.1); Sodium 139 mmol/L (137-145); Total Bilirubin 0.7 mg/dL (0.2-1.3); Total Protein 7.9 g/dL (6.3-8.2)
--- NOTE | 2020-09-07 19:40 | CT ---
EXAMINATION TYPE: CT abdomen pelvis w con DATE OF EXAM: 09/07/2020 COMPARISON: 11/20/2019. HISTORY: Left lower quadrant abdominal pain. CT DLP: 1148.4 mGycm Automated exposure control for dose reduction was used. TECHNIQUE: Helical acquisition of images was performed from the lung bases through the pelvis. CONTRAST: Performed without Oral Contrast and with IV Contrast, patient injected with 100ml mL of Isovue 300. FINDINGS: LUNG BASES: No significant abnormality is appreciated. LIVER/GB: No significant abnormality is appreciated. PANCREAS: No significant abnormality is seen. SPLEEN: No significant abnormality is seen. ADRENALS: No significant abnormality is seen. KIDNEYS: No significant abnormality is seen. FREE AIR: No free air is visualized. RETROPERITONEAL ADENOPATHY: None visualized REPRODUCTIVE ORGANS: No significant abnormality is seen URINARY BLADDER: Moderate urinary bladder wall thickening. PELVIC ADENOPATHY: None visualized. OSSEOUS STRUCTURES: No acute abnormality is seen. Moderate lumbar spondylosis. BOWEL: Moderate fat stranding involving the sigmoid colonic diverticula with wall thickening. Redemo nstration of bowel wall lucencies involving the sigmoid colon appears to relate to diverticula and/or fecal material. OTHER: Moderate to advanced atherosclerotic disease. IMPRESSION: ACUTE SIGMOID COLON DIVERTICULITIS WITH CHRONIC WALL THICKENING AND LUCENCIES. No significant free a ir. However small abscess cannot be entirely excluded. Recommend follow-up imaging as indicated. Moderate urinary bladder wall thickening, correlate for cystitis.
[2020-09-07] MEDS ORDERED: PIPERACILLIN-TAZOBACTAM 3.375 GM in SODIUM CHLORIDE 0.9% 100 ML IVPB STA (19:46)
[2020-09-07] MEDS ORDERED: ACETAMINOPHEN TAB 325 MG TAB PO PRN (19:52)
[2020-09-07] MEDS ORDERED: NALOXONE 0.4 MG/ML 1 ML VIAL IV PRN (19:52)
[2020-09-07] MEDS ORDERED: HYDROmorphone 0.5 MG/0.5 ML SYRINGE IVP PRN (19:52)
[2020-09-07] MEDS ORDERED: ONDANSETRON 4 MG/2 ML VIAL IVP PRN (19:52)
--- NOTE | 2020-09-07 20:01 | ED ---
General Adult HPI - General Chief complaint: Abdominal Pain Stated complaint: Abd Pain Time Seen by Provider: 09/07/20 18:33 Source: patient, RN notes reviewed, old records reviewed Mode of arrival: wheelchair Limitations: no limitations - History of Present Illness Initial comments: 59-year-old female presents for evaluation of abdominal pain. Previous history of both pancreatitis and diverticulitis. She states that her pain is predominantly in the left lower quadrant. She's had some nausea and vomiting as well as diarrhea. She reports subjective fever and chills. She has history of recurrent diverticulitis. - Related Data Home Medications Medication Instructions Recorded Confirmed Multivitamins, Thera [Multivitamin 1 tab PO DAILY 01/29/16 03/20/19 (formulary)] Albuterol Inhaler (Mhu) [Ventolin 1 - 2 puff INHALATION RT-Q6H PRN 06/12/18 03/20/19 Hfa Inhaler (Mhu)] Albuterol Nebulized [Ventolin 2.5 mg INHALATION RT-Q4H PRN 08/08/18 03/20/19 Nebulized] Previous Rx's Medication Instructions Recorded Amoxicillin/Potassium Clav 1 each PO Q12HR #20 tab 03/20/19 [Augmentin 875-125 Tablet] Amoxic-Pot Clav 875-125Mg 1 tab PO Q12HR #20 tablet 11/20/19 [Augmentin 875-125] Allergies Allergy/AdvReac Type Severity Reaction Status Date / Time ibuprofen AdvReac Abdominal Verified 09/07/20 18:27 Pain Review of Systems ROS Statement: Those systems with pertinent positive or pertinent negative responses have been documented in the HPI. ROS Other: All systems not noted in ROS Statement are negative. Past Medical History Past Medical History: Asthma, COPD, Fibromyalgia, Hyperlipidemia, Hypertension, Osteoarthritis (OA), Pulmonary Embolus (PE) Additional Past Medical History / Comment(s): Pancreatitis, chronic pain, DDD, DJD, cervical/back pain/bilateral scoliosis, spondylosisi, neuropathy bilateral hands and feet, pulmonary embolism R lung, brain aneurysm being monitored, diverticulosis. History of Any Multi-Drug Resistant Organisms: None Reported Past Surgical History: Hysterectomy, Tubal Ligation Additional Past Surgical History / Comment(s): D&C, angiograms d/t cerebral aneurysm. Past Anesthesia/Blood Transfusion Reactions: No Reported Reaction Past Psychological History: Anxiety, Depression Smoking Status: Current every day smoker Past Alcohol Use History: None Reported Past Drug Use History: Marijuana - Past Family History Mother Family Medical History: Cancer, Coronary Artery Disease (CAD) Additional Family Medical History / Comment(s): Mother had uterine cancer. Sister(s) Family Medical History: Cancer, Neurologic Disorder Additional Family Medical History / Comment(s): parkinsonism. Brother(s) Family Medical History: Cancer Additional Family Medical History / Comment(s): Pt had 2 brothers with cancer. General Exam Limitations: no limitations General appearance: alert, in no apparent distress Head exam: Present: atraumatic Eye exam: Present: normal appearance. Absent: PERRL, EOMI ENT exam: Present: normal exam Neck exam: Present: normal inspection, tenderness Respiratory exam: Present: normal lung sounds bilaterally. Absent: respiratory distress, wheezes Cardiovascular Exam: Present: regular rate, normal rhythm GI/Abdominal exam: Present: soft, tenderness (Left lower quadrant). Absent: distended, guarding, rebound Extremities exam: Present: normal inspection, normal capillary refill. Absent: pedal edema Neurological exam: Present: alert, oriented X3, CN II-XII intact. Absent: motor sensory deficit Psychiatric exam: Present: normal affect, normal mood Skin exam: Present: warm, dry, intact. Absent: cyanosis, diaphoretic Course Vital Signs 09/07/20 18:24 Temperature 99 F Pulse Rate 95 Respiratory 16 Rate Blood Pressure 114/80 O2 Sat by Pulse 96 Oximetry Medical Decision Making - Medical Decision Making 59 yo female presenting for evaluation of abdominal pain. Workup was initiated, patient has CT evidence of diverticulitis in the sigmoid colon. Possible adjacent abscess. Patient is nontoxic, well. She started on antibiotics. She will be admitted with general surgery on consult. She also has a mild pancreatitis, she will be kept nothing by mouth with IV fluids and pain control. Case Discussed with Dr. Solano - Lab Data Result diagrams: 09/07/20 18:55 09/07/20 18:55 Lab Results 09/07/20 09/07/20 09/07/20 Range/Units 18:55 18:55 18:55 WBC 12.0 H (3.8-10.6) k/uL RBC 4.95 (3.80-5.40) m/uL Hgb 14.5 (11.4-16.0) gm/dL Hct 43.4 (34.0-46.0) % MCV 87.5 (80.0-100.0) fL MCH 29.3 (25.0-35.0) pg MCHC 33.5 (31.0-37.0) g/dL RDW 13.1 (11.5-15.5) % Plt Count 374 (150-450) k/uL MPV 6.9 Neutrophils % 64 % Lymphocytes % 23 % Monocytes % 7 % Eosinophils % 4 % Basophils % 1 % Neutrophils # 7.7 (1.3-7.7) k/uL Lymphocytes # 2.8 (1.0-4.8) k/uL Monocytes # 0.8 (0-1.0) k/uL Eosinophils # 0.5 (0-0.7) k/uL Basophils # 0.1 (0-0.2) k/uL APTT (22.0-30.0) sec Sodium 139 (137-145) mmol/L Potassium 3.9 (3.5-5.1) mmol/L Chloride 102 (98-107) mmol/L Carbon Dioxide 29 (22-30) mmol/L Anion Gap 8 mmol/L BUN 12 (7-17) mg/dL Creatinine 0.49 L (0.52-1.04) mg/dL Est GFR (CKD-EPI)AfAm >90 (>60 ml/min/1.73 sqM) Est GFR (CKD-EPI)NonAf >90 (>60 ml/min/1.73 sqM) Glucose 89 (74-99) mg/dL Plasma Lactic Acid Cholo (0.7-2.0) mmol/L Calcium 9.6 (8.4-10.2) mg/dL Total Bilirubin 0.7 (0.2-1.3) mg/dL AST 18 (14-36) U/L ALT 9 (4-34) U/L Alkaline Phosphatase 81 (38-126) U/L Total Protein 7.9 (6.3-8.2) g/dL Albumin 4.1 (3.5-5.0) g/dL Amylase 149 H (30-110) U/L Lipase 1425 H (23-300) U/L Urine Color Colorless Urine Appearance Clear (Clear) Urine pH 5.0 (5.0-8.0) Ur Specific [place] 1.003 (1.001-1.035) Urine Protein Negative (Negative) Urine Glucose (UA) Negative (Negative) Urine Ketones Negative (Negative) Urine Blood Negative (Negative) Urine Nitrite Negative (Negative) Urine Bilirubin Negative (Negative) Urine Urobilinogen <2.0 (<2.0) mg/dL Ur Leukocyte Esterase Negative (Negative) 09/07/20 09/07/20 Range/Units 18:55 18:55 WBC (3.8-10.6) k/uL RBC (3.80-5.40) m/uL Hgb (11.4-16.0) gm/dL Hct (34.0-46.0) % MCV (80.0-100.0) fL MCH (25.0-35.0) pg MCHC (31.0-37.0) g/dL RDW (11.5-15.5) % Plt Count (150-450) k/uL MPV Neutrophils % % Lymphocytes % % Monocytes % % Eosinophils % % Basophils % % Neutrophils # (1.3-7.7) k/uL Lymphocytes # (1.0-4.8) k/uL Monocytes # (0-1.0) k/uL Eosinophils # (0-0.7) k/uL Basophils # (0-0.2) k/uL APTT 24.3 (22.0-30.0) sec Sodium (137-145) mmol/L Potassium (3.5-5.1) mmol/L Chloride (98-107) mmol/L Carbon Dioxide (22-30) mmol/L Anion Gap mmol/L BUN (7-17) mg/dL Creatinine (0.52-1.04) mg/dL Est GFR (CKD-EPI)AfAm (>60 ml/min/1.73 sqM) Est GFR (CKD-EPI)NonAf (>60 ml/min/1.73 sqM) Glucose (74-99) mg/dL Plasma Lactic Acid [place] 0.7 (0.7-2.0) mmol/L Calcium (8.4-10.2) mg/dL Total Bilirubin (0.2-1.3) mg/dL AST (14-36) U/L ALT (4-34) U/L Alkaline Phosphatase (38-126) U/L Total Protein (6.3-8.2) g/dL Albumin (3.5-5.0) g/dL Amylase (30-110) U/L Lipase (23-300) U/L Urine Color Urine Appearance (Clear) Urine pH (5.0-8.0) Ur Specific [place] (1.001-1.035) Urine Protein (Negative) Urine Glucose (UA) (Negative) Urine Ketones (Negative) Urine Blood (Negative) Urine Nitrite (Negative) Urine Bilirubin (Negative) Urine Urobilinogen (<2.0) mg/dL Ur Leukocyte Esterase (Negative) Disposition Clinical Impression: Acute pancreatitis, Diverticulitis Disposition: ADMITTED IP TO THIS [facility] Condition: Stable Is patient prescribed a controlled substance at d/c from ED?: No Referrals: None,Stated [Primary Care Provider] - 1-2 days Decision to Admit Reason: Admit from EC Decision Date: 09/07/20 Decision Time: 20:01
[2020-09-07] MEDS: SODIUM CHLORIDE 0.9% 1,000 ML IV SCH (20:23)
[2020-09-08] MEDS: SODIUM CHLORIDE 0.9% 1,000 ML IV SCH ×3 (00:28→19:33)
--- NOTE | 2020-09-08 03:46 | P.HPIM ---
History of Present Illness H&P Date: 09/07/20 Patient is a 59-year-old female with a PMH of alcohol abuse (last drink 10 years ago as per patient), chronic pancreatitis, diverticulosis with multiple bouts of diverticulitis, COPD, hypertension, hyperlipidemia who presented to the emergency room due to complaints of abdominal pain. The patient notes that her pain started 2 days ago, and left lower quadrant, radiating throughout the lower abdomen, 6 out of 10, with no clear alleviating or exacerbating features. She also reports associated nausea with a single episode of vomiting earlier today. She notes that due to her pain, she has been unable to tolerate much foods. She notes that her symptoms are in line with her multiple previous bouts of diverticulitis. She denied additional complaints. She denied chest discomfort, shortness of breath, palpitations, headaches, or dizziness. In the emergency room, CTs abdomen and pelvis revealed acute sigmoid diverticulitis along with suspected multiple small abscesses. She also had moderate urinary bladder wall thickening suspicious for cystitis. Levaquin for evaluation was remarkable for WBC count 12.0, lipase 1425, and an unremarkable UA. Review of Systems Pertinent positives and negatives as discussed in HPI, a complete review of systems was performed and all other systems are negative. Past Medical History Past Medical History: Asthma, COPD, Fibromyalgia, Hyperlipidemia, Hypertension, Osteoarthritis (OA), Pulmonary Embolus (PE) Additional Past Medical History / Comment(s): Pancreatitis, chronic pain, DDD, DJD, cervical/back pain/bilateral scoliosis, spondylosisi, neuropathy bilateral hands and feet, pulmonary embolism R lung, brain aneurysm being monitored, diverticulosis. History of Any Multi-Drug Resistant Organisms: None Reported Past Surgical History: Hysterectomy, Tubal Ligation Additional Past Surgical History / Comment(s): D&C, angiograms d/t cerebral aneurysm. Past Anesthesia/Blood Transfusion Reactions: No Reported Reaction Past Psychological History: Anxiety, Depression Additional Psychological History / Comment(s): Pt lives with her son and his fiancee. She has a cane but does not need to use it. She drives. Smoking Status: Current every day smoker Past Alcohol Use History: None Reported Additional Past Alcohol Use History / Comment(s): Pt started smoking in 1977 and is a half pack a day smoker. She drank heavily in the past but has not drank alcohol in 6 years. Past Drug Use History: Marijuana Additional Drug Use History / Comment(s): states smokes "couple times a week a couple joints." - Past Family History Mother Family Medical History: Cancer, Coronary Artery Disease (CAD) Additional Family Medical History / Comment(s): Mother had uterine cancer. Sister(s) Family Medical History: Cancer, Neurologic Disorder Additional Family Medical History / Comment(s): parkinsonism. Brother(s) Family Medical History: Cancer Additional Family Medical History / Comment(s): Pt had 2 brothers with cancer. Medications and Allergies Home Medications Medication Instructions Recorded Confirmed Type Multivitamins, Thera [Multivitamin 1 tab PO DAILY 01/29/16 09/07/20 History (formulary)] Allergies Allergy/AdvReac Type Severity Reaction Status Date / Time ibuprofen AdvReac Abdominal Verified 09/07/20 20:21 Pain Physical Exam Vitals: Vital Signs Temp Pulse Resp BP BP Pulse Ox 09/07/20 20:51 149/81 09/07/20 20:28 97.7 F 67 18 119/73 95 09/07/20 18:24 99 F 95 16 114/80 96 Intake and Output 09/07/20 09/07/20 09/08/20 14:59 22:59 06:59 Other: Weight 86.183 kg General: non toxic, no distress, appears at stated age, overweight Derm: no unusual rashes/lesions no unusual ecchymoses, warm, dry Head: atraumatic, normocephalic, symmetric Eyes: EOMI, no lid lag, anicteric sclera, pupils equal round reactive to light ENT: Nose and ears atraumatic, no thrush, no pharyngeal erythema Neck: No thyromegaly, no cervical lymphadenopathy, trachea midline, supple Mouth: no lip lesion, mucus membranes moist Cardiovascular: S1S2 reg, no murmur, positive posterior tibial pulse bilateral, no edema, capillary refill less than 2 seconds Lungs: CTA bilateral, no rhonchi, no rales , no accessory muscle use Abdominal: soft, diffuse lower abdominal tenderness left greater than right, no guarding, no appreciable organomegaly Ext: no gross muscle atrophy, muscle strength 5 out of 5 in all 4 extremities grossly, no contractures, Neuro: CN II-XI grossly intact, light touch intact all 4 extremities, finger to nose within normal limits, Psych: Alert, oriented, appropriate affect Results CBC & Chem 7: 09/07/20 18:55 09/07/20 18:55 Labs: Abnormal Lab Results - Last 24 Hours (Table) 09/07/20 09/07/20 Range/Units 18:55 18:55 WBC 12.0 H (3.8-10.6) k/uL Creatinine 0.49 L (0.52-1.04) mg/dL Amylase 149 H (30-110) U/L Lipase 1425 H (23-300) U/L Thrombosis Risk Factor Assmnt - Choose All That Apply Each Factor Represents 1 point: Age 41-60 years Thrombosis Risk Factor Assessment Total Risk Factor Score: 1 Thrombosis Risk Factor Assessment Level: Low Risk Assessment and Plan Plan: Acute on chronic diverticulitis -Continue with Zosyn -Surgery consult -Nothing by mouth for now -IV fluids -Pain control Acute on chronic pancreatitis -Patient reports she has not drank for over 10 years now -Continue with pain control and IV fluids -Nothing by mouth Chronic conditions: Hypertension, hyperlipidemia, COPD -Continue home meds once confirmed DVT prophylaxis -Heparin subq The patient is admitted with an anticipated greater than 2 midnight stay for evaluation of diverticulitis CODE STATUS: Full Code Discussed with: patient Anticipated discharge date: 2-[address]: home A total of 35 minutes was spent on the care of this complex patient more than 50% of the time was spent in counseling and care coordination.
[2020-09-08] MEDS: PIPERACILLIN-TAZOBACTAM 3.375 GM in SODIUM CHLORIDE 0.9% 100 ML IVPB SCH ×3 (04:19→19:40)
--- NOTE | 2020-09-08 07:56 | P.GSCN ---
History of Present Illness Consult date: 09/08/20 History of present illness: CHIEF COMPLAINT: Pancreatitis and diverticulitis HISTORY OF PRESENT ILLNESS: The patient is a 59 year old female admitted with complaint of diverticulitis including pancreatitis of moderate intensity. She reports her abdominal cramping of the lower abdomen started 3 days ago. Last attack of diverticulitis was 3-5 years ago. She reports 2 month history of inappropriate foods including cookies with nuts. She reports epigastric discomfort radiating to the left upper quadrant. Separately she reports suprapubic bilateral lower abdominal pain that was severe in nature and not improving. In the last 2-3 days, she adjusted her diet to Jell-O where she had some improvement of her symptoms. She presents with pancreatitis with lipase of 1400 on admission. She denies previous colonoscopy. She denies a family history of colon cancer. She denies family history of gallbladder disease. She still has her gallbladder. General surgery is consulted for diverticulitis including pancreatitis. PAST MEDICAL HISTORY: See list and reviewed PAST SURGICAL HISTORY: See list and reviewed MEDICATIONS: See list and reviewed ALLERGIES: See list and reviewed SOCIAL HISTORY: See list and reviewed FAMILY HISTORY: See list and reviewed REVIEW OF ORGAN SYSTEMS: CONSTITUTIONAL: No fevers or chills. EYES: Denies any trouble with vision. No glasses. HEENT: No difficulties with hearing. No nosebleeds. RESPIRATORY: Denies recent pneumonia. Past history of pulmonary embolism. History of tobacco abuse disorder. CARDIOVASCULAR: Denies any chest pain, palpitations, or recent heart attacks. GASTROINTESTINAL: Denies fatty food intolerance. Has change in bowel habits and gas bloat. GENITOURINARY: Denies any blood in urine or increased urinary frequency. NEUROLOGICAL: Denies any numbness or tingling along the distal extremities. No seizure disorders or headaches. History of brain aneurysm. MUSCULOSKELETAL: Has back pain, stiffness or joint arthritis. Has fibromyalgia. Has scoliosis. SKIN: No current skin cancer. No rash. PSYCHIATRIC: Has anxiety and depression. No suicidal thoughts. ENDOCRINE: Denies current thyroid disorders. Denies any blood sugar glucose intolerance. HEME/LYMPHATIC: Denies any lumps and bumps around the neck. Past deep venous thrombosis. ALLERGY/IMMUNOLOGY: No immunoglobulin therapy. No immune deficiencies. BREAST: Denies current breast lumps, pain or nipple discharge. PHYSICAL EXAM: VITALS: Reviewed CONSTITUTIONAL: Well developed and in no acute distress. EYES: Conjuctivae without sclera icterus. Pupils are equally round and reactive to light. Extraocular movements grossly intact. HEAD, EARS, NOSE, THROAT: Moist buccal mucosa. Head is atraumatic, normocephalic. Hears conversational speech. No nasal drainage. . NECK: Supple. No JV distention. No thyroidomegaly. RESPIRATORY: Non-labored respirations and equal bilateral excursions. No gross wheezes. CARDIOVASCULAR: Regular rate and rhythm. Extremities without moderate edema. Palpable 2+ radial pulses. ABDOMEN: Soft. Non-tender. Nondistended. MUSCULOSKELETAL: Nail and fingers with good capillary refill. SKIN: Warm and well perfused with good skin turgor. NEUROLOGIC: Cranial nerves II through XII grossly intact. No focal or lateralizing signs. PSYCH: Appropriate affect. Alert and oriented to person, place and time. Displays appropriate insight. CLINCAL LABS: Reviewed. Initial lipase over 1400. WBC elevated over 12,000. IMAGING: Independently reviewed CT of the abdomen and pelvis demonstrating sigmoid colon thickening with diverticulitis. No calcifications along the pancreas. No large hiatal hernia. This is my interpretation Ultrasound of the gallbladder independently reviewed demonstrating no large gallstones that is radiopaque. This is my interpretation RADIOLOGY: Report reviewed of CT of the abdomen and pelvis without evidence of abscess, large. RECORDS: previous old records reviewed from 2018 also with pancreatitis and diverticulitis ASSESSMENT: 1. Diverticulitis, sigmoid colon 2. Pancreatitis 3. History of pulmonary embolus 4. Tobacco abuse disorder PLAN: 1. She has had at least 2 episodes since 2018 with concurrent pancreatitis and diverticulitis. Ultrasound of the gallbladder do not demonstrate radiopaque stones however radiolucent stones may still be present. May benefit from an HIDA scan. 2. For her diverticulitis, continue IV antibiotics. 3. She has not had colonoscopy. Will need colonoscopy once current attack has resolved in 4-6 weeks. 4. May have clear liquid diet Thank you for this kind consultation. Past Medical History Past Medical History: Asthma, COPD, Fibromyalgia, Hyperlipidemia, Hypertension, Osteoarthritis (OA), Pulmonary Embolus (PE) Additional Past Medical History / Comment(s): Pancreatitis, chronic pain, DDD, DJD, cervical/back pain/bilateral scoliosis, spondylosisi, neuropathy bilateral hands and feet, pulmonary embolism R lung, brain aneurysm being monitored, diverticulosis. History of Any Multi-Drug Resistant Organisms: None Reported Past Surgical History: Hysterectomy, Tubal Ligation Additional Past Surgical History / Comment(s): D&C, angiograms d/t cerebral aneurysm. Past Anesthesia/Blood Transfusion Reactions: No Reported Reaction Past Psychological History: Anxiety, Depression Additional Psychological History / Comment(s): Pt lives with her son and his fiancee. She has a cane but does not need to use it. She drives. Smoking Status: Current every day smoker Past Alcohol Use History: None Reported Additional Past Alcohol Use History / Comment(s): Pt started smoking in 1977 and is a half pack a day smoker. She drank heavily in the past but has not drank alcohol in 6 years. Past Drug Use History: Marijuana Additional Drug Use History / Comment(s): states smokes "couple times a week a couple joints." - Past Family History Mother Family Medical History: Cancer, Coronary Artery Disease (CAD) Additional Family Medical History / Comment(s): Mother had uterine cancer. Sister(s) Family Medical History: Cancer, Neurologic Disorder Additional Family Medical History / Comment(s): parkinsonism. Brother(s) Family Medical History: Cancer Additional Family Medical History / Comment(s): Pt had 2 brothers with cancer. Medications and Allergies Home Medications Medication Instructions Recorded Confirmed Type Multivitamins, Thera [Multivitamin 1 tab PO DAILY 01/29/16 09/07/20 History (formulary)] Allergies Allergy/AdvReac Type Severity Reaction Status Date / Time ibuprofen AdvReac Abdominal Verified 09/07/20 20:21 Pain Surgical - Exam Vital Signs Temp Pulse Resp BP Pulse Ox 99 F 95 16 114/80 96 09/07/20 18:24 09/07/20 18:24 09/07/20 18:24 09/07/20 18:24 09/07/20 18:24 Results - Labs 09/07/20 18:55 09/07/20 18:55 Abnormal Lab Results - Last 24 Hours (Table) 09/07/20 09/07/20 Range/Units 18:55 18:55 WBC 12.0 H (3.8-10.6) k/uL Creatinine 0.49 L (0.52-1.04) mg/dL Amylase 149 H (30-110) U/L Lipase 1425 H (23-300) U/L Diabetes panel 09/07/20 Range/Units 18:55 Sodium 139 (137-145) mmol/L Potassium 3.9 (3.5-5.1) mmol/L Chloride 102 (98-107) mmol/L Carbon Dioxide 29 (22-30) mmol/L BUN 12 (7-17) mg/dL Creatinine 0.49 L (0.52-1.04) mg/dL Glucose 89 (74-99) mg/dL Calcium 9.6 (8.4-10.2) mg/dL AST 18 (14-36) U/L ALT 9 (4-34) U/L Alkaline Phosphatase 81 (38-126) U/L Total Protein 7.9 (6.3-8.2) g/dL Albumin 4.1 (3.5-5.0) g/dL Calcium panel 09/07/20 Range/Units 18:55 Calcium 9.6 (8.4-10.2) mg/dL Albumin 4.1 (3.5-5.0) g/dL Pituitary panel 09/07/20 Range/Units 18:55 Sodium 139 (137-145) mmol/L Potassium 3.9 (3.5-5.1) mmol/L Chloride 102 (98-107) mmol/L Carbon Dioxide 29 (22-30) mmol/L BUN 12 (7-17) mg/dL Creatinine 0.49 L (0.52-1.04) mg/dL Glucose 89 (74-99) mg/dL Calcium 9.6 (8.4-10.2) mg/dL Adrenal panel 09/07/20 Range/Units 18:55 Sodium 139 (137-145) mmol/L Potassium 3.9 (3.5-5.1) mmol/L Chloride 102 (98-107) mmol/L Carbon Dioxide 29 (22-30) mmol/L BUN 12 (7-17) mg/dL Creatinine 0.49 L (0.52-1.04) mg/dL Glucose 89 (74-99) mg/dL Calcium 9.6 (8.4-10.2) mg/dL Total Bilirubin 0.7 (0.2-1.3) mg/dL AST 18 (14-36) U/L ALT 9 (4-34) U/L Alkaline Phosphatase 81 (38-126) U/L Total Protein 7.9 (6.3-8.2) g/dL Albumin 4.1 (3.5-5.0) g/dL
[2020-09-08] MEDS: HEPARIN SODIUM,PORCINE 5,000 UNIT/ML 1 ML VIAL SQ SCH ×3 (08:14→23:39)
--- NOTE | 2020-09-08 12:01 | US ---
EXAMINATION TYPE: US abdomen limited DATE OF EXAM: 09/08/2020 COMPARISON: 06/12/2018 CLINICAL HISTORY: r/o gallstones. Pancreatitis EXAM MEASUREMENTS: Liver Length: 17.2 cm Gallbladder Wall: 0.2 cm CBD: 0.4 cm Right Kidney: 11.7 x 4.3 x 5.1 cm Pancreas: Obscured by bowel gas Liver: Visualized portions appeared wnl Gallbladder: wnl Evidence for sonographic Willard's sign: No CBD: wnl Right Kidney: wnl IMPRESSION: 1. No evidence of cholelithiasis 2. The pancreas is obscured by bowel gas.
--- NOTE | 2020-09-08 16:44 | P.PN ---
Subjective Progress Note Date: 09/08/20 Patient is still having a lot of abdominal pain today. She is refusing to take any pain medication including IV morphine, IV Dilaudid, and IV fentanyl. She said that she has a lot of nausea when she takes pain medications. She otherwise denies any nausea or vomiting. Objective - Vital Signs Vital signs: Vital Signs Temp 98.8 F 09/08/20 13:57 Pulse 62 09/08/20 13:57 Resp 17 09/08/20 13:57 BP 136/77 09/08/20 13:57 Pulse Ox 95 09/08/20 13:57 Intake & Output 09/07/20 09/08/20 09/08/20 18:59 06:59 18:59 Weight 86.183 kg 86.183 kg Other: Voiding Method Toilet # Voids 1 - Exam General: The patient is awake and alert, in no distress Eye: there is normal conjunctiva bilaterally. Neck: The neck is supple, there is no JVD. Cardiovascular: Normal S1-S2, no S3-S4, no murmurs. Respiratory: Lungs clear to auscultation bilaterally Gastrointestinal: Abdomen is soft, there is mild tenderness to palpation throughout the abdomen Musculoskeletal: There is no pedal edema. Neurological:. Speech is normal. Skin: Skin is warm and dry - Labs CBC & Chem 7: 09/07/20 18:55 09/07/20 18:55 Labs: Abnormal Lab Results - Last 24 Hours (Table) 09/07/20 09/07/20 Range/Units 18:55 18:55 WBC 12.0 H (3.8-10.6) k/uL Creatinine 0.49 L (0.52-1.04) mg/dL Amylase 149 H (30-110) U/L Lipase 1425 H (23-300) U/L Assessment and Plan Assessment: This is a 59-year-old female with no significant past medical history of presented to the emergency room with abdominal pain. Patient was evaluated in the ER and admitted to the hospital for further management of her medical problems noted below. 1. Acute diverticulitis involving the sigmoid colon, started on IV Zosyn. Continue nothing by mouth for the first 24 hours. 2. Acute on chronic pancreatitis, continue symptomatically management. Ultrasound of the abdomen showed no evidence of stones. Patient denies any recent alcohol use 3. Chronic medical problems: History of alcohol abuse and cessation for past 10 years, history of hypertension, history of hyperlipidemia 4. DVT prophylaxis with subcu heparin Today, I reviewed her medication list and lab work results. Continue nothing by mouth for now. Aggressive IV fluid hydration with normal saline at 130 mL per hour. Patient was offered different IV pain medication that she was adamant to refuse. Repeat lab work in the morning. Appreciate surgery recommendations.
[2020-09-08 18:28] LABS: ALT 9 U/L (4-34); AST 17 U/L (14-36); African American GFR (CKD) >90 (>60 ml/min/1.73 sqM); Albumin 3.6 g/dL (3.5-5.0); Alkaline Phosphatase 68 U/L (38-126); Anion Gap 10 mmol/L; Blood Urea Nitrogen 11 mg/dL (7-17); Carbon Dioxide 24 mmol/L (22-30); Chloride 107 mmol/L (98-107); Glucose 104 mg/dL (74-99); Non-African American GFR(CKD) >90 (>60 ml/min/1.73 sqM); Potassium 3.7 mmol/L (3.5-5.1); Sodium 141 mmol/L (137-145); Total Bilirubin 0.6 mg/dL (0.2-1.3); Total Protein 6.9 g/dL (6.3-8.2)
[2020-09-09] MEDS: SODIUM CHLORIDE 0.9% 1,000 ML IV SCH ×3 (03:40→19:03)
[2020-09-09] MEDS: PIPERACILLIN-TAZOBACTAM 3.375 GM in SODIUM CHLORIDE 0.9% 100 ML IVPB SCH ×3 (03:40→20:47)
[2020-09-09 06:30] LABS: Basophils # (A) 0.1 k/uL (0-0.2); Basophils % (A) 1 %; Eosinophils # (A) 0.1 k/uL (0-0.7); Eosinophils % (A) 1 %; HCT 40.7 % (34.0-46.0); HGB 13.3 gm/dL (11.4-16.0); Lymphocytes % (A) 22 %; MCH 29.6 pg (25.0-35.0); MCHC 32.8 g/dL (31.0-37.0); MCV 90.2 fL (80.0-100.0); Mean Platelet Volume 6.8; Monocytes # (A) 0.5 k/uL (0-1.0); Monocytes % (A) 6 %; Neutrophils # (A) 6.4 k/uL (1.3-7.7); Neutrophils % (A) 69 %; Platelet Count 295 k/uL (150-450); RBC 4.51 m/uL (3.80-5.40); RDW 12.7 % (11.5-15.5); WBC 9.2 k/uL (3.8-10.6)
[2020-09-09] MEDS: HEPARIN SODIUM,PORCINE 5,000 UNIT/ML 1 ML VIAL SQ SCH ×3 (09:14→23:57)
--- NOTE | 2020-09-09 13:19 | P.PN ---
Subjective Progress Note Date: 09/09/20 Patient reported that her abdominal pain is better today. She had approximately 5 bowel movements since last night there were liquidy with no blood. No fevers or chills. No other events overnight. Objective - Vital Signs Vital signs: Vital Signs Temp 98.2 F 09/09/20 11:50 Pulse 66 09/09/20 11:50 Resp 16 09/09/20 11:50 BP 144/86 09/09/20 11:50 Pulse Ox 96 09/09/20 11:50 Intake & Output 09/08/20 09/09/20 09/09/20 18:59 06:59 18:59 Intake Total 480 Balance 480 Intake: Oral 480 Other: Voiding Method Toilet Toilet Toilet # Voids 2 1 # Bowel Movements 1 - Exam General: The patient is awake and alert, in no distress Eye: there is normal conjunctiva bilaterally. Neck: The neck is supple, there is no JVD. Cardiovascular: Normal S1-S2, no S3-S4, no murmurs. Respiratory: Lungs clear to auscultation bilaterally Gastrointestinal: Abdomen is soft, nontender Musculoskeletal: There is no pedal edema. Neurological:. Speech is normal. Skin: Skin is warm and dry - Labs CBC & Chem 7: 09/09/20 05:43 09/08/20 16:53 Labs: Abnormal Lab Results - Last 24 Hours (Table) 09/08/20 Range/Units 16:53 Creatinine 0.45 L (0.52-1.04) mg/dL Glucose 104 H (74-99) mg/dL Microbiology - Last 24 Hours (Table) 09/07/20 19:58 Blood Culture - Preliminary Blood No Growth after 24 hours Assessment and Plan Assessment: This is a 59-year-old female with no significant past medical history of presented to the emergency room with abdominal pain. Patient was evaluated in the ER and admitted to the hospital for further management of her medical problems noted below. 1. Acute diverticulitis involving the sigmoid colon noted on computed t omography scan, started on IV Zosyn day #2. Start liquid diet today and advance as tolerated. 2. Acute on chronic pancreatitis, continue symptomatically management. Ultrasound of the abdomen showed no evidence of stones. Patient denies any recent alcohol use. Fasting lipid profile in the morning to rule out hypertriglyceridemia 3. Chronic medical problems: History of alcohol abuse and cessation for past 10 years, history of hypertension, history of hyperlipidemia 4. DVT prophylaxis with subcu heparin Today, I reviewed her medication list and lab work results. Decrease IV fluid to 50 mL per hour. Advance diet as tolerated. Appreciate general surgery recommendations. Repeat lab work in the morning. Anticipate discharge home tomorrow. I'll schedule colonoscopy as an outpatient in 6-8 weeks. We need to finish 10 days course of antibiotic.
--- NOTE | 2020-09-09 14:40 | P.PN ---
<Kayla Mera - Last Filed: 09/09/20 14:34> Subjective Progress Note Date: 09/09/20 CHIEF COMPLAINT: Abdominal pain HISTORY OF PRESENT ILLNESS: Patient is being followed for acute diverticulitis and pancreatitis. Patient reports that her left lower quadrant abdominal pain is less severe than yesterday. She rates her pain about a 3 out of 10. She had about 5 liquidy stools through the night. She reports no blood in the stools. She denies any nausea or vomiting. She is currently on a clear liquid diet. Afebrile. WBC has decreased from 12 to 9.2 Hgb 13.3 Abdominal ultrasound shows no evidence of cholelithiasis. The pancreas is secured by bowel gas. PHYSICAL EXAM: VITAL SIGNS: Reviewed. GENERAL: Well-developed in no acute distress. HEENT: No sclera icterus. Extraocular movements grossly intact. Moist buccal mucosa. Head is atraumatic, normocephalic. ABDOMEN: Soft. Nondistended. Tenderness with patient in the left lower quadrant NEUROLOGIC: Alert and oriented. Cranial nerves II through XII grossly intact. ASSESSMENT: 1. Diverticulitis, sigmoid colon 2. Pancreatitis 3. History of pulmonary embolus 4. Tobacco abuse disorder PLAN: -Continue IV antibiotics for diverticulitis -Continue clear liquid diet -Check stool for C. diff -Repeat amylase and lipase in a.m. -Recommend colonoscopy in 4-6 weeks once current attack has resolved. Physician Eggs Inspector note has been reviewed by physician. Signing provider agrees with the documented findings, assessment, and plan of care. Objective - Vital Signs Vital signs: Vital Signs Temp 98.2 F 09/09/20 11:50 Pulse 66 09/09/20 11:50 Resp 16 09/09/20 11:50 BP 144/86 09/09/20 11:50 Pulse Ox 96 09/09/20 11:50 Intake & Output 09/08/20 09/09/20 09/09/20 18:59 06:59 18:59 Intake Total 480 Balance 480 Intake: Oral 480 Other: Voiding Method Toilet Toilet Toilet # Voids 2 1 # Bowel Movements 1 - Labs CBC & Chem 7: 09/09/20 05:43 09/08/20 16:53 Labs: Abnormal Lab Results - Last 24 Hours (Table) 09/08/20 Range/Units 16:53 Creatinine 0.45 L (0.52-1.04) mg/dL Glucose 104 H (74-99) mg/dL Microbiology - Last 24 Hours (Table) 09/07/20 19:58 Blood Culture - Preliminary Blood No Growth after 24 hours <Candice Leo N - Last Filed: 09/09/20 17:35> Subjective Patient seen and evaluated. As above. Please see additional documentation below CHIEF COMPLAINT: Pancreatitis and diverticulitis HISTORY OF PRESENT ILLNESS: The patient is a 59 year old female admitted for pancreatitis including diverticulitis. Since admission, abdominal pain has improved. She is passing flatus. She reports over 6 bowel movements daily clear. C. diff assay is negative. She is tolerating liquid diet. REVIEW OF ORGAN SYSTEMS: No fevers or chills. No shortness of breath. No productive sputum. PHYSICAL EXAM: VITALS: Reviewed CONSTITUTIONAL: Well developed and in no acute distress. EYES: Conjuctivae without sclera icterus. Extraocular movements grossly intact. HEAD, EARS, NOSE, THROAT: Moist buccal mucosa. Head is atraumatic, normocephalic. Hears conversational speech. No nasal drainage. RESPIRATORY: Non-labored respirations and equal bilateral excursions. No gross wheezes. CARDIOVASCULAR: Regular rate and rhythm. Palpable 2+ radial pulses. ABDOMEN: Soft. Tenderness left lower quadrant lower abdomen improving. MUSCULOSKELETAL: Nail and fingers with good capillary refill. SKIN: Warm and well perfused with good skin turgor. NEUROLOGIC: Cranial nerves II through XII grossly intact. No focal or la teralizing signs. PSYCH: Appropriate affect. Alert and oriented to person, place and time. Displays appropriate insight. CLINCAL LABS: Reviewed. WBC normal. C. diff assay negative ASSESSMENT: 1. Diverticulitis, sigmoid colon 2. Pancreatitis 3. History of pulmonary embolus 4. Tobacco abuse disorder PLAN: 1. Will add Flagyl for colitis including continuing Zosyn 2. Will advance to full liquid diet Objective - Vital Signs Vital signs: Vital Signs Temp 98.5 F 09/09/20 16:31 Pulse 58 L 09/09/20 16:31 Resp 16 09/09/20 16:31 BP 137/71 09/09/20 16:31 Pulse Ox 97 09/09/20 16:31 Intake & Output 09/08/20 09/09/20 09/09/20 18:59 06:59 18:59 Intake Total 960 Balance 960 Intake: Oral 960 Other: Voiding Method Toilet Toilet Toilet # Voids 2 2 # Bowel Movements 2 - Labs CBC & Chem 7: 09/09/20 05:43 09/08/20 16:53 Labs: Abnormal Lab Results - Last 24 Hours (Table) 09/08/20 Range/Units 16:53 Creatinine 0.45 L (0.52-1.04) mg/dL Glucose 104 H (74-99) mg/dL Microbiology - Last 24 Hours (Table) 09/07/20 19:58 Blood Culture - Preliminary Blood No Growth after 24 hours Assessment and Plan (1) Acute pancreatitis Current Visit: Yes Status: Acute Code(s): K85.90 - ACUTE PANCREATITIS WITHOUT NECROSIS OR INFECTION, UNSP SNOMED Code(s): 058873144 (2) Diverticulitis Current Visit: Yes Status: Acute Code(s): K57.92 - DVTRCLI OF INTEST, PART UNSP, W/O PERF OR ABSCESS W/O BLEED SNOMED Code(s): 265619319 (3) Colitis Current Visit: No Status: Acute Code(s): K52.9 - NONINFECTIVE GASTROENTERITIS AND COLITIS, UNSPECIFIED SNOMED Code(s): 21778150
[2020-09-09] MEDS: metroNIDAZOLE-NS PMX 500 MG in SALINE 1 100ML.BAG IVPB SCH ×2 (19:04→23:57)
[2020-09-10] MEDS: PIPERACILLIN-TAZOBACTAM 3.375 GM in SODIUM CHLORIDE 0.9% 100 ML IVPB SCH ×3 (04:03→20:07)
[2020-09-10] MEDS: metroNIDAZOLE-NS PMX 500 MG in SALINE 1 100ML.BAG IVPB SCH ×3 (05:48→17:26)
[2020-09-10 05:51] LABS: Basophils % (A) 1 %; Eosinophils # (A) 0.1 k/uL (0-0.7); Eosinophils % (A) 2 %; HCT 42.2 % (34.0-46.0); HGB 13.6 gm/dL (11.4-16.0); Lymphocytes % (A) 27 %; MCH 28.8 pg (25.0-35.0); MCHC 32.2 g/dL (31.0-37.0); MCV 89.4 fL (80.0-100.0); Mean Platelet Volume 6.7; Monocytes # (A) 0.5 k/uL (0-1.0); Monocytes % (A) 7 %; Neutrophils # (A) 4.5 k/uL (1.3-7.7); Neutrophils % (A) 62 %; Platelet Count 334 k/uL (150-450); RBC 4.71 m/uL (3.80-5.40); RDW 12.6 % (11.5-15.5); WBC 7.3 k/uL (3.8-10.6)
[2020-09-10 06:03] LABS: ALT 8 U/L (4-34); AST 15 U/L (14-36); African American GFR (CKD) >90 (>60 ml/min/1.73 sqM); Albumin 3.4 g/dL (3.5-5.0); Alkaline Phosphatase 66 U/L (38-126); Amylase 51 U/L (30-110); Anion Gap 8 mmol/L; Blood Urea Nitrogen 5 mg/dL (7-17); Calcium 9.1 mg/dL (8.4-10.2); Carbon Dioxide 26 mmol/L (22-30); Chloride 107 mmol/L (98-107); Cholesterol 191 mg/dL (<200); Glucose 98 mg/dL (74-99); HDL Cholesterol 33 mg/dL (40-60); LDL Cholesterol,Calculated 133 mg/dL (0-99); Lipase 305 U/L (23-300); Non-African American GFR(CKD) >90 (>60 ml/min/1.73 sqM); Potassium 3.7 mmol/L (3.5-5.1); Sodium 141 mmol/L (137-145); Total Bilirubin 0.5 mg/dL (0.2-1.3); Total Protein 6.8 g/dL (6.3-8.2); Triglycerides 126 mg/dL (<150)
[2020-09-10] MEDS: HEPARIN SODIUM,PORCINE 5,000 UNIT/ML 1 ML VIAL SQ SCH ×2 (10:53→16:44)
[2020-09-10] MEDS: SODIUM CHLORIDE 0.9% 1,000 ML IV SCH ×2 (10:56→20:08)
--- NOTE | 2020-09-10 13:26 | P.PN ---
<Kayla Mera - Last Filed: 09/10/20 13:22> Subjective Progress Note Date: 09/10/20 CHIEF COMPLAINT: Abdominal pain HISTORY OF PRESENT ILLNESS: Patient is being followed for acute diverticulitis and pancreatitis. Patient continues to have improvement in her left lower quadrant pain. Patient is still having multiple episodes of diarrhea. She reports no blood in the stools. She denies any nausea or vomiting. Afebrile. WBC 7.3 potassiums 0.7 creatinine 0.56 LFTs normal lipase 305. Stool for C. diff negative PHYSICAL EXAM: VITAL SIGNS: Reviewed. GENERAL: Well-developed in no acute distress. HEENT: No sclera icterus. Extraocular movements grossly intact. Moist buccal mucosa. Head is atraumatic, normocephalic. ABDOMEN: Soft. Nondistended. Tenderness with palpation in the left lower quadrant NEUROLOGIC: Alert and oriented. Cranial nerves II through XII grossly intact. ASSESSMENT: 1. Diverticulitis, sigmoid colon. Showing improvement 2. Pancreatitis resolving 3. History of pulmonary embolus 4. Tobacco abuse disorder PLAN: -Continue IV antibiotics for diverticulitis -Advance diet to full liquids -Continue IV fluids -Recommend colonoscopy in 4-6 weeks once current attack has resolved. Physician Bank Compliance Officer note has been reviewed by physician. Signing provider agrees with the documented findings, assessment, and plan of care. Objective - Vital Signs Vital signs: Vital Signs Temp 98.4 F 09/10/20 02:01 Pulse 59 L 09/10/20 08:00 Resp 18 09/10/20 08:00 BP 129/88 09/10/20 02:01 Pulse Ox 97 09/10/20 02:01 Intake & Output 09/09/20 09/10/20 09/10/20 18:59 06:59 18:59 Intake Total 960 Balance 960 Intake: Oral 960 Other: Voiding Method Toilet Toilet # Voids 1 3 # Bowel Movements 1 - Labs CBC & Chem 7: 09/10/20 05:31 09/10/20 05:31 Labs: Abnormal Lab Results - Last 24 Hours (Table) 09/10/20 Range/Units 05:31 BUN 5 L (7-17) mg/dL Albumin 3.4 L (3.5-5.0) g/dL LDL Cholesterol, Calc 133 H (0-99) mg/dL HDL Cholesterol 33 L (40-60) mg/dL Lipase 305 H (23-300) U/L Microbiology - Last 24 Hours (Table) 09/07/20 19:58 Blood Culture - Preliminary Blood No Growth after 48 hours <Candice Leo - Last Filed: 09/10/20 19:19> Subjective patient seen and evaluated.Please see additional documentation below CHIEF COMPLAINT: Pancreatitis and diverticulitis HISTORY OF PRESENT ILLNESS: The patient is a 59 year old female admitted for pancreatitis including diverticulitis. She reports moderate improvement of her abdominal pain since admission. Her diarrhea has improved compared to yesterday per discussion. She is tolerating full liquid diet. She is passing flatus. Her antibiotics were adjusted to include Flagyl 500 mg IV every 6hrs. REVIEW OF ORGAN SYSTEMS: No fevers or chills. No shortness of breath. No productive sputum. PHYSICAL EXAM: VITALS: Reviewed CONSTITUTIONAL: Well developed and in no acute distress. EYES: Conjuctivae without sclera icterus. Extraocular movements grossly intact. HEAD, EARS, NOSE, THROAT: Moist buccal mucosa. Head is atraumatic, normocephalic. Hears conversational speech. No nasal drainage. RESPIRATORY: Non-labored respirations and equal bilateral excursions. No gross wheezes. CARDIOVASCULAR: Regular rate and rhythm. Palpable 2+ radial pulses. ABDOMEN: Soft. no peritonitis. Minimal left lower quadrant abdominal pain. MUSCULOSKELETAL: Nail and fingers with good capillary refill. SKIN: Warm and well perfused with good skin turgor. NEUROLOGIC: Cranial nerves II through XII grossly intact. No focal or lateralizing signs. PSYCH: Appropriate affect. Alert and oriented to person, place and time. Displays appropriate insight. CLINCAL LABS: Reviewed. WBC normal. Lipase trending downward. ASSESSMENT: 1. Diverticulitis, sigmoid colon 2. Pancreatitis 3. History of pulmonary embolus 4. Tobacco abuse disorder PLAN: 1. We discussed advancing diet to low fiber as this should help with her diarrhea. 2. Should she tolerate low fiber diet for breakfast, stable for discharge from surgical standpoint 3. Follow up as outpatient next week. 4. Continue at least 1 week course of antibiotics following discharge Objective - Vital Signs Vital signs: Vital Signs Temp 98.0 F 09/10/20 13:00 Pulse 66 09/10/20 13:00 Resp 15 09/10/20 13:00 BP 146/82 09/10/20 13:00 Pulse Ox 95 09/10/20 13:00 Intake & Output 09/10/20 09/10/20 09/11/20 06:59 18:59 06:59 Intake Total 240 Balance 240 Intake: Oral 240 Other: Voiding Method Toilet # Voids 3 3 - Labs CBC & Chem 7: 09/10/20 05:31 09/10/20 05:31 Labs: Abnormal Lab Results - Last 24 Hours (Table) 09/10/20 Range/Units 05:31 BUN 5 L (7-17) mg/dL Albumin 3.4 L (3.5-5.0) g/dL LDL Cholesterol, Calc 133 H (0-99) mg/dL HDL Cholesterol 33 L (40-60) mg/dL Lipase 305 H (23-300) U/L Microbiology - Last 24 Hours (Table) 09/07/20 19:58 Blood Culture - Preliminary Blood No Growth after 48 hours Assessment and Plan (1) Acute pancreatitis Current Visit: Yes Status: Acute Code(s): K85.90 - ACUTE PANCREATITIS WITHOUT NECROSIS OR INFECTION, UNSP SNOMED Code(s): 860222991 (2) Diverticulitis Current Visit: Yes Status: Acute Code(s): K57.92 - DVTRCLI OF INTEST, PART UNSP, W/O PERF OR ABSCESS W/O BLEED SNOMED Code(s): 956064095 (3) Colitis Current Visit: No Status: Acute Code(s): K52.9 - NONINFECTIVE GASTROENTERITIS AND COLITIS, UNSPECIFIED SNOMED Code(s): 32075301
--- NOTE | 2020-09-10 19:01 | P.PN ---
<Fredy Gross - Last Filed: 09/10/20 18:51> Progress Note - Text Progress Note Date: 09/10/20 Hospital Course: Patient is a 59-year-old female with past medical history of hypertension, hyperlipidemia, fibromyalgia, EtOH use/abuse quitting drinking greater than 10 years ago, chronic pancreatitis, diverticulosis with multiple bouts of diverticulitis, previous PE, COPD. Patient currently admitted for diverticulitis and pancreatitis. Patient presented with a chief complaint of abdominal pain. Computed tomography scan revealed acute diverticulitis involving the sigmoid colon. Lipase initially 1425 with an elevated amylase of 149 with repeat this morning showing significant improvement with amylase returned to normal at 51 and lipase down to 305. Physical exam: Patient seen and fully evaluated at the bedside. Patient reports she is tolerating a liquid diet and requesting to advanced. Patient advanced liquid diet at this time. Patient also reports to continued episodes of loose stool reporting approximately 15 episodes in the past 24 hours. Patient reports complete resolution of abdominal pain. She denies having any nausea, vomiting, chest pain, palpitations, shortness of breath, fever, chills, or any other complaints at this time. General: non toxic, no distress, appears at stated age Derm: warm, dry Head: atraumatic, normocephalic, symmetric Eyes: EOMI, no lid lag, anicteric sclera Mouth: no lip lesion, mucus membranes moist Cardiovascular: S1S2 reg, no murmur, positive posterior tibial pulses bilaterally, and cap refill less than 2 seconds. Lungs: Respirations even, regular, and unlabored. Lungs clear to palpation bilaterally. No rhonchi, no rales , no accessory muscle use. Abdominal: soft, nontender to palpation, no guarding, no appreciable organomegaly Ext: no gross muscle atrophy, no edema, no contractures Neuro: CN II-XI grossly intact, no focal neuro deficits Psych: Alert, oriented, appropriate affect. Assessment and Plan of care: Acute diverticulitis -Computed tomography scan revealing acute diverticulitis involving the sigmoid colon. -Day #3 IV antibiotics with Zosyn -Patient tolerating liquid diet and was advanced to full liquid diet today. Acute on chronic pancreatitis, improving -Symptomatic care and pain management. -Ultrasound of the abdomen showed no evidence of stones. -Triglycerides normal findings at 126. -Initial lipase of 1425, repeat this morning 305. Hypertension -Monitor vital signs and continue daily medication management. Hyperlipidemia -Continue daily medication management -Continue with her healthy diet. CODE STATUS: Full code DVT prophylaxis: Heparin Discussed with: Patient and RN Anticipated discharge date: 1-[address]: Home A total of 35 minutes was spent on the care of this complex patient more than 50% of the time was spent in counseling and care coordination. <Jackeline Martini - Last Filed: 09/10/20 19:03> Progress Note - Text Patient seen and examined independently. Patient was also seen by Fredy Gross NP and case was discussed. I am in agreement with subjective, physical exam, assessment and plan as written above and amended below. Patient seen and examined at bedside. She complains about her diet. She is lactose intolerant does not handle eat well. We agreed to a trial of potatoes. General: non toxic, no distress, appears at stated age Derm: warm, dry Head: atraumatic, normocephalic, symmetric Eyes: EOMI, no lid lag, anicteric sclera Mouth: no lip lesion, mucus membranes moist Cardiovascular: S1S2 reg, no murmur, positive posterior tibial pulse bilateral, Lungs: CTA bilateral, no rhonchi, no rales , no accessory muscle use Abdominal: soft, tender to palpation left lower quadrant, no guarding, no appreciable organomegaly Psych: Alert, oriented, appropriate affect
[2020-09-11] MEDS: metroNIDAZOLE-NS PMX 500 MG in SALINE 1 100ML.BAG IVPB SCH ×3 (00:12→11:52)
[2020-09-11] MEDS: HEPARIN SODIUM,PORCINE 5,000 UNIT/ML 1 ML VIAL SQ SCH ×2 (00:19→08:50)
[2020-09-11] MEDS: PIPERACILLIN-TAZOBACTAM 3.375 GM in SODIUM CHLORIDE 0.9% 100 ML IVPB SCH ×2 (04:35→11:51)
[2020-09-11 09:04] LABS: Basophils # (A) 0.05 X 10*3/uL (0.00-0.10); Basophils % (A) 0.7 %; Eosinophils # (A) 0.19 X 10*3/uL (0.04-0.35); Eosinophils % (A) 2.8 %; Lymphocytes # (A) 1.85 X 10*3/uL (0.90-5.00); Lymphocytes % (A) 26.8 %; MCH 29.4 pg (27.0-32.0); MCHC 33.3 g/dL (32.0-37.0); MCV 88.1 fL (80.0-97.0); Mean Platelet Volume 9.4 fL (9.5-12.2); Monocytes # (A) 0.72 X 10*3/uL (0.20-1.00); Monocytes % (A) 10.4 %; Neutrophils # (A) 4.07 X 10*3/uL (1.80-7.70); Platelet Count 369 X 10*3/uL (140-440); RBC 4.77 X 10*6/uL (4.10-5.20)
--- NOTE | 2020-09-11 12:01 | P.PN ---
Subjective Progress Note Date: 09/11/20 CHIEF COMPLAINT: Pancreatitis and diverticulitis HISTORY OF PRESENT ILLNESS: The patient is a 59 year old female admitted for pancreatitis including diverticulitis. She reports more formed bowel movements. Less tender than yesterday. She is very cautious of her diet. Overall, abdominal pain has improved since admission. Patient was seen with TEACHING AIDE for hospitalist group. REVIEW OF ORGAN SYSTEMS: No fevers or chills. No shortness of breath. No productive sputum. PHYSICAL EXAM: VITALS: Reviewed CONSTITUTIONAL: Well developed and in no acute distress. EYES: Conjuctivae without sclera icterus. Extraocular movements grossly intact. HEAD, EARS, NOSE, THROAT: Moist buccal mucosa. Head is atraumatic, normocephalic. Hears conversational speech. No nasal drainage. RESPIRATORY: Non-labored respirations and equal bilateral excursions. No gross wheezes. CARDIOVASCULAR: Regular rate and rhythm. ABDOMEN: No peritonitis. MUSCULOSKELETAL: Nail and fingers with good capillary refill. SKIN: Warm and well perfused with good skin turgor. NEUROLOGIC: Cranial nerves II through XII grossly intact. No focal or lateralizing signs. PSYCH: Appropriate affect. Alert and oriented to person, place and time. Displays appropriate insight. CLINCAL LABS: Reviewed. WBC normal. ASSESSMENT: 1. Diverticulitis, sigmoid colon 2. Pancreatitis 3. History of pulmonary embolus 4. Tobacco abuse disorder PLAN: 1. Overall, patient reports improvement of abdominal pain since admission. 2. Low fiber diet as tolerated. 3. Agreeable for discharge once tolerating a low fiber diet Objective - Vital Signs Vital signs: Vital Signs Temp 97.9 F 09/11/20 04:48 Pulse 51 L 09/11/20 04:48 Resp 16 09/11/20 04:48 BP 145/82 09/11/20 04:48 Pulse Ox 95 09/11/20 04:48 Intake & Output 09/10/20 09/11/20 09/11/20 18:59 06:59 18:59 Intake Total 240 Balance 240 Intake: Oral 240 Other: Voiding Method Toilet Toilet # Voids 3 0 - Labs CBC & Chem 7: 09/11/20 04:53 09/10/20 05:31 Labs: Abnormal Lab Results - Last 24 Hours (Table) 09/11/20 Range/Units 04:53 MPV 9.4 L (9.5-12.2) fL Microbiology - Last 24 Hours (Table) 09/07/20 19:58 Blood Culture - Preliminary Blood No Growth after 72 hours Assessment and Plan (1) Acute pancreatitis Current Visit: Yes Status: Acute Code(s): K85.90 - ACUTE PANCREATITIS WITHOUT NECROSIS OR INFECTION, UNSP SNOMED Code(s): 702132977 (2) Diverticulitis Current Visit: Yes Status: Acute Code(s): K57.92 - DVTRCLI OF INTEST, PART UNSP, W/O PERF OR ABSCESS W/O BLEED SNOMED Code(s): 931018554 (3) Colitis Current Visit: No Status: Acute Code(s): K52.9 - NONINFECTIVE GASTROENTERITIS AND COLITIS, UNSPECIFIED SNOMED Code(s): 34577642
--- NOTE | 2020-09-11 12:06 | P.DS ---
<Fredy Gross - Last Filed: 09/11/20 12:07> Providers Expected date of discharge: 09/11/20 Hospital Course: Discharge Diagnosis: -Acute diverticulitis of sigmoid colon -Acute on chronic pancreatitis -Hypertension -Hyperlipidemia -Nicotine dependence on cigarettes Hospital Course: Patient is a 59-year-old female with past medical history of hypertension, hyperlipidemia, fibromyalgia, EtOH use/abuse quitting drinking greater than 10 years ago, chronic pancreatitis, diverticulosis with multiple recurrent bouts of diverticulitis, previous PE, and COPD. Patient presented to the hospital with a chief complaint of abdominal pain and was admitted under our services for diverticulitis and pancreatitis. Computed tomography scan revealed acute diverticulitis involving the sigmoid colon. Lipase initially 1425 with an elevated amylase of 149 with repeat this morning showing significant improvement with amylase returned to normal at 51 and lipase down to 305. Clostridium difficile negative. Initially presented with mild leukocytosis with WBC count of 12.0 which has resolved and upon discharge WBC count 6.90. Patient educated on healthy food choices, throughout hospital stay patient was very particular with food choices. Patient would only eat mashed potatoes and drink ice water throughout hospitalization stay. Patient was offered a multitude of different choices, patient stated "I know what my body likes and what my body does not like." Patient tolerated oral intake. Throughout hospitalization patient had recurrent episodes of diarrhea she reports over the past 24 hours the diarrhea has stopped and stool has became more solid-like. Patient states she is no longer having any abdominal pain or cramping. Pt being discharged home on oral antibiotics (flagyl and augmentin) and to follow up outpatient with PCP and gastroenterology as discussed. Physical exam: Patient seen and fully evaluated at the bedside this morning. Patient reports she is tolerating a regular diet and requesting to be discharged home. Patient reports diarrhea has stopped and over the past 24 hours she is having more formed and "solid-like" stools. She states that she continues to have complete resolution of abdominal pain and continues to deny having any episodes of nausea, vomiting, chest pain, palpitations, shortness of breath, fever, chills, or any other complaints at this time. General: non toxic, no distress, appears at stated age Derm: warm, dry Head: atraumatic, normocephalic, symmetric Eyes: EOMI, no lid lag, anicteric sclera Mouth: no lip lesion, mucus membranes moist Cardiovascular: S1S2 reg, no murmur, positive posterior tibial pulses bilaterally, and cap refill less than 2 seconds. Lungs: Respirations even, regular, and unlabored on room air. Lungs clear to palpation bilaterally. No rhonchi, no rales , no accessory muscle use. Abdominal: soft, nontender to palpation, no guarding, no appreciable organomegaly Ext: no gross muscle atrophy, no edema, no contractures Neuro: GCS 15. Speech clear. CN II-XI grossly intact, no focal neuro deficits Psych: Alert, oriented, appropriate affect. A total of 45 minutes of time were spent preparing this complex discharge summary. Assessment: Patient seen and examined independently. Patient was also seen by Fredy Gross NP and case was discussed. I am in agreement with discharge diagnosis, hospital course, and physical exam as written above and amended below. Patient seen and examined. Doing well. Tolerating her potatoes and water, she has not wanted to eat anything else. Belly pain is well controlled. She feels that she will do well home. We discussed the importance of following up with surgery for colonoscopy and finding a primary care physician. General: non toxic, no distress, appears at stated age Derm: warm, dry Head: atraumatic, normocephalic, symmetric Eyes: EOMI, no lid lag, anicteric sclera Mouth: no lip lesion, mucus membranes moist Cardiovascular: S1S2 reg, no murmur, positive posterior tibial pulse bilateral, Lungs: CTA bilateral, no rhonchi, no rales , no accessory muscle use Abdominal: soft, + tender to palpation LLQ, no guarding, no appreciable organomegaly Ext: no gross muscle atrophy, no edema, no contractures Patient Condition at Discharge: Stable Plan - Discharge Summary Discharge Rx Participant: Yes New Discharge Prescriptions: New Amoxic-Pot Clav 875-125Mg [Augmentin 875-125] 1 tab PO Q12HR 6 Days #12 tab metroNIDAZOLE [Flagyl] 500 mg PO Q8HR 6 Days #18 tab Albuterol Inhaler [Ventolin Hfa Inhaler] 2 puff INHALATION RT-QID PRN #1 inhalation PRN Reason: Shortness Of Breath Or Wheezing Albuterol Nebulized [Ventolin Nebulized] 2.5 mg INHALATION Q6H PRN #1 box PRN Reason: Shortness Of Breath Or Wheezing Continue Multivitamins, Thera [Multivitamin (formulary)] 1 tab PO DAILY Discharge Medication List Multivitamins, Thera [Multivitamin (formulary)] 1 tab PO DAILY 01/29/16 [History] Albuterol Inhaler [Ventolin Hfa Inhaler] 2 puff INHALATION RT-QID PRN #1 inhal ation 09/11/20 [Rx] Albuterol Nebulized [Ventolin Nebulized] 2.5 mg INHALATION Q6H PRN #1 box 09/11/20 [Rx] Amoxic-Pot Clav 875-125Mg [Augmentin 875-125] 1 tab PO Q12HR 6 Days #12 tab 09/11/20 [Rx] metroNIDAZOLE [Flagyl] 500 mg PO Q8HR 6 Days #18 tab 09/11/20 [Rx] Follow up Appointment(s)/Referral(s): Candice Leo MD [STAFF PHYSICIAN] - 1 Week (office will call patient with appointment date and time) Rell Acosta [STAFF PHYSICIAN] - 1-2 Days (Patient is new to this practice.She will have to call with her information to set up appointment) Patient Instructions/Handouts: Albuterol (By breathing), Metronidazole (By mouth), Amoxicillin/Clavulanate Potassium (By mouth), Diverticulitis (DC) Activity/Diet/Wound Care/Special Instructions: Activity: As Tolerated Diet: As discussed, continue a heart healthy diet. Continue to avoid dairy foods such as milk, yogurt, and ice cream due to the reported effects these have on your body. Try to add more of a variety of food into your diet including whole-wheat and whole grains, may use whole grain cereals or oatmeal as we discussed. Try and incorporate intake of high fiber foods slowly such as fruits and vegetables. Drink at least 8 glasses of water daily. Special Instructions: Please take medication as directed and complete entire course of antibiotics as prescribed. Discharge Disposition: HOME SELF-CARE <Jackeline Martini - Last Filed: 09/11/20 17:15> Providers Date of admission: 09/07/20 19:52 Attending physician: Lalo Solano MD Consults: 09/07/20 19:52 Consult Physician Routine Consulting Provider: Candice Leo Consult Reason/Comments: Diverticulitis Do you want consulting provider notified?: Yes Primary care physician: Stated None
[2020-09-11 12:28] VITALS: BP 149/83; PULSE 73; RESP 18; TEMP 98.1
== END 2020-09-11 14:25 | disposition home or self-care (01) | DRG 391 ==
LOC: EC 18:17 → 4SSUR 19:52 → 6PED 09-08 16:12 → 5NMEDONC 09-10 08:41
PROVIDERS: ADMIT Internal Medicine; ATTEND Internal Medicine
DX: K57.32 Diverticulitis of large intestine without perforation or abscess without bleeding (principal); K85.90 Acute pancreatitis without necrosis or infection, unspecified; K86.1 Other chronic pancreatitis; E78.5 Hyperlipidemia, unspecified; J44.9 Chronic obstructive pulmonary disease, unspecified; M79.7 Fibromyalgia; I10 Essential (primary) hypertension; M19.90 Unspecified osteoarthritis, unspecified site; F41.9 Anxiety disorder, unspecified; K52.9 Noninfective gastroenteritis and colitis, unspecified; F17.210 Nicotine dependence, cigarettes, uncomplicated; G62.9 Polyneuropathy, unspecified; M41.9 Scoliosis, unspecified; K57.30 Diverticulosis of large intestine without perforation or abscess without bleeding; F32.9 Major depressive disorder, single episode, unspecified; Z82.49 Family history of ischemic heart disease and other diseases of the circulatory system; Z80.49 Family history of malignant neoplasm of other genital organs; Z82.0 Family history of epilepsy and other diseases of the nervous system; Z90.710 Acquired absence of both cervix and uterus; Z98.51 Tubal ligation status; Z86.711 Personal history of pulmonary embolism; Z86.79 Personal history of other diseases of the circulatory system; Z87.19 Personal history of other diseases of the digestive system; Z98.890 Other specified postprocedural states
CPT/HCPCS: 36415; 74177; 76705; 80053; 80061; 81003; 82150; 83605; 83690; 85025; 85730; 87040; 87324; 96374; 99285

== ENCOUNTER 2020-10-29 13:02 | Emergency (ER) | payer OTHER ==
[2020-10-29] MEDS ORDERED: SODIUM CHLORIDE 0.9% 1,000 ML IV STA (14:19)
--- NOTE | 2020-10-29 14:55 | ED ---
Abdominal Pain HPI - General Chief Complaint: Abdominal Pain Stated Complaint: Abdominal pain Time Seen by Provider: 10/29/20 14:05 Source: patient, RN notes reviewed Mode of arrival: ambulatory Limitations: no limitations - History of Present Illness Initial Comments: Patient is a 60-year-old female that presents to the emergency Department with lower abdominal pain. She notes that she does have a history of diverticulitis and chronic pancreatitis. She notes that the pain is mostly in her suprapubic area and is concerned about a possible urinary tract infection. She states that she is approximately 7-8 out of 10 on the pain scale that is constant with no relief but does not want any pain medication as it does make her nauseous. She notes that she came in take Tylenol as it makes her nauseous. She was in mild to moderate distress while sitting up in a chair during the exam interview stating that when she sits still the pain subsides but when she moves it spikes. Her eyes were red from crying. She denied any chest pain shortness of breath headache nausea vomiting diarrhea constipation fever fatigue chills hematochezia melena - Related Data Home Medications Medication Instructions Recorded Confirmed Multivitamins, Thera [Multivitamin 1 tab PO DAILY 01/29/16 10/29/20 (formulary)] Albuterol Nebulized [Ventolin 2.5 mg INHALATION RT-Q6H PRN 10/29/20 10/29/20 Nebulized] Previous Rx's Medication Instructions Recorded Albuterol Inhaler [Ventolin Hfa 2 puff INHALATION RT-QID PRN #1 09/11/20 Inhaler] inhalation Allergies Allergy/AdvReac Type Severity Reaction Status Date / Time ibuprofen AdvReac Abdominal Verified 10/29/20 16:16 Pain Review of Systems ROS Statement: Those systems with pertinent positive or pertinent negative responses have been documented in the HPI. ROS Other: All systems not noted in ROS Statement are negative. Past Medical History Past Medical History: Asthma, COPD, Fibromyalgia, Hyperlipidemia, Hypertension, Osteoarthritis (OA), Pulmonary Embolus (PE) Additional Past Medical History / Comment(s): Pancreatitis, chronic pain, DDD, DJD, cervical/back pain/bilateral scoliosis, spondylosisi, neuropathy bilateral hands and feet, pulmonary embolism R lung, brain aneurysm being monitored, diverticulosis. History of Any Multi-Drug Resistant Organisms: None Reported Past Surgical History: Hysterectomy, Tubal Ligation Additional Past Surgical History / Comment(s): D&C, angiograms d/t cerebral aneurysm. Past Anesthesia/Blood Transfusion Reactions: No Reported Reaction Past Psychological History: Anxiety, Depression Smoking Status: Current every day smoker Past Alcohol Use History: None Reported Past Drug Use History: Marijuana - Past Family History Mother Family Medical History: Cancer, Coronary Artery Disease (CAD) Additional Family Medical History / Comment(s): Mother had uterine cancer. Sister(s) Family Medical History: Cancer, Neurologic Disorder Additional Family Medical History / Comment(s): parkinsonism. Brother(s) Family Medical History: Cancer Additional Family Medical History / Comment(s): Pt had 2 brothers with cancer. General Exam Limitations: no limitations General appearance: alert, in no apparent distress Head exam: Present: atraumatic, normocephalic, normal inspection Eye exam: Present: normal appearance, PERRL, EOMI. Absent: scleral icterus, conjunctival injection, periorbital swelling Neck exam: Present: normal inspection. Absent: tenderness, meningismus, lymphadenopathy Respiratory exam: Present: normal lung sounds bilaterally. Absent: respiratory distress, wheezes, rales, rhonchi, stridor Cardiovascular Exam: Present: regular rate, normal rhythm, normal heart sounds. Absent: systolic murmur, diastolic murmur, rubs, gallop, clicks GI/Abdominal exam: Present: soft, tenderness (Generalized tenderness, mostly in the suprapubic and left lower quadrant), normal bowel sounds. Absent: distended , guarding, rebound, rigid Extremities exam: Present: normal inspection, full ROM, normal capillary refill. Absent: tenderness, pedal edema, joint swelling, calf tenderness Neurological exam: Present: alert, oriented X3, CN II-XII intact Psychiatric exam: Present: normal affect, normal mood Skin exam: Present: warm, dry, intact, normal color. Absent: rash Course Vital Signs 10/29/20 13:51 Temperature 99.2 F Pulse Rate 99 Respiratory 17 Rate Blood Pressure 120/83 O2 Sat by Pulse 97 Oximetry Medical Decision Making - Medical Decision Making 10-year-old female with abdominal pain and a history of diverticulitis and chronic pancreatitis. Labs, 1 L normal saline, CT of the abdomen and pelvis ordered. A she declined pain medication as she noted that he does make her nauseous. Labs: Elevated white count at 13.7. Lipase 540, rest unremarkable. Computed tomography scan showed large masslike area along the sigmoid colon. strongly urged the patient to follow-up with GI specialist to get a full evaluation for possible neoplasms. Case discussed with Dr. Estrella, she can discharge home - Lab Data Result diagrams: 10/29/20 14:45 10/29/20 14:45 Lab Results 10/29/20 10/29/20 10/29/20 Range/Units 14:45 14:45 14:45 WBC 13.7 H (3.8-10.6) k/uL RBC 4.89 (3.80-5.40) m/uL Hgb 14.4 (11.4-16.0) gm/dL Hct 42.1 (34.0-46.0) % MCV 86.1 (80.0-100.0) fL MCH 29.4 (25.0-35.0) pg MCHC 34.2 (31.0-37.0) g/dL RDW 12.9 (11.5-15.5) % Plt Count 440 (150-450) k/uL MPV 6.4 Neutrophils % 71 % Lymphocytes % 20 % Monocytes % 6 % Eosinophils % 1 % Basophils % 1 % Neutrophils # 9.7 H (1.3-7.7) k/uL Lymphocytes # 2.7 (1.0-4.8) k/uL Monocytes # 0.8 (0-1.0) k/uL Eosinophils # 0.2 (0-0.7) k/uL Basophils # 0.1 (0-0.2) k/uL Sodium 137 (137-145) mmol/L Potassium 4.0 (3.5-5.1) mmol/L Chloride 102 (98-107) mmol/L Carbon Dioxide 24 (22-30) mmol/L Anion Gap 11 mmol/L BUN 13 (7-17) mg/dL Creatinine 0.46 L (0.52-1.04) mg/dL Est GFR (CKD-EPI)AfAm >90 (>60 ml/min/1.73 sqM) Est GFR (CKD-EPI)NonAf >90 (>60 ml/min/1.73 sqM) Glucose 101 H (74-99) mg/dL Calcium 10.0 (8.4-10.2) mg/dL Total Bilirubin 0.6 (0.2-1.3) mg/dL AST 18 (14-36) U/L ALT 7 (4-34) U/L Alkaline Phosphatase 99 (38-126) U/L Total Protein 7.9 (6.3-8.2) g/dL Albumin 4.0 (3.5-5.0) g/dL Amylase 78 (30-110) U/L Lipase 540 H (23-300) U/L Urine Color Yellow Urine Appearance Cloudy H (Clear) Urine pH 5.0 (5.0-8.0) Ur Specific [place] 1.029 (1.001-1.035) Urine Protein 1+ H (Negative) Urine Glucose (UA) Negative (Negative) Urine Ketones Negative (Negative) Urine Blood Trace H (Negative) Urine Nitrite Negative (Negative) Urine Bilirubin Negative (Negative) Urine Urobilinogen 2.0 (<2.0) mg/dL Ur Leukocyte Esterase Negative (Negative) Urine RBC <1 (0-5) /hpf Urine WBC 1 (0-5) /hpf Ur Squamous Epith Cells 4 (0-4) /hpf Urine Mucus Many H (None) /hpf - Radiology Data Radiology results: report reviewed, image reviewed CT of the abdomen and pelvis: Large masslike area through the sigmoid colon with significant adjacent inflammatory changes suspicious for neoplasm. No changes suggestive for acute pancreatitis. Disposition Clinical Impression: Diverticulosis, Pancreatitis Disposition: HOME SELF-CARE Condition: Stable Instructions (If sedation given, give patient instructions): Diverticulosis (ED) Additional Instructions: Please return to the Emergency Department if symptoms worsen or any other concerns. strongly recommend follow-up with GI specialist to get a full evaluation. Continue at home on occasion as prescribed. Continue pain management at home with [id number] pain medicine. Is patient prescribed a controlled substance at d/c from ED?: No Referrals: Lennie Price MD [Primary Care Provider] - 1-2 days Dylan Rodriguez MD [STAFF PHYSICIAN] - 1-2 days Time of Disposition: 17:21
[2020-10-29 14:56] LABS: Basophils # (A) 0.1 k/uL (0-0.2); Basophils % (A) 1 %; Eosinophils # (A) 0.2 k/uL (0-0.7); Eosinophils % (A) 1 %; HCT 42.1 % (34.0-46.0); HGB 14.4 gm/dL (11.4-16.0); Lymphocytes # (A) 2.7 k/uL (1.0-4.8); Lymphocytes % (A) 20 %; MCH 29.4 pg (25.0-35.0); MCHC 34.2 g/dL (31.0-37.0); MCV 86.1 fL (80.0-100.0); Mean Platelet Volume 6.4; Monocytes # (A) 0.8 k/uL (0-1.0); Monocytes % (A) 6 %; Neutrophils # (A) 9.7 k/uL (1.3-7.7); Neutrophils % (A) 71 %; Platelet Count 440 k/uL (150-450); RBC 4.89 m/uL (3.80-5.40); RDW 12.9 % (11.5-15.5); WBC 13.7 k/uL (3.8-10.6)
[2020-10-29 15:06] LABS: Appearance,Urine Cloudy (Clear); Bilirubin,Urine Negative (Negative); Blood,Urine Trace (Negative); Color,Urine Yellow; Glucose,Urine (UA) Negative (Negative); Ketones,Urine Negative (Negative); Leukocyte Esterase,Urine Negative (Negative); Mucus,Urine Many /hpf; Nitrite,Urine Negative (Negative); Protein,Urine 1+ (Negative); RBC,Urine <1 /hpf (0-5); Specific Gravity,Urine 1.029 (1.001-1.035); Squamous Epithelial Cell,Urine 4 /hpf (0-4); WBC,Urine 1 /hpf (0-5)
[2020-10-29 15:41] LABS: ALT 7 U/L (4-34); AST 18 U/L (14-36); African American GFR (CKD) >90 (>60 ml/min/1.73 sqM); Alkaline Phosphatase 99 U/L (38-126); Amylase 78 U/L (30-110); Anion Gap 11 mmol/L; Blood Urea Nitrogen 13 mg/dL (7-17); Carbon Dioxide 24 mmol/L (22-30); Chloride 102 mmol/L (98-107); Glucose 101 mg/dL (74-99); Lipase 540 U/L (23-300); Non-African American GFR(CKD) >90 (>60 ml/min/1.73 sqM); Sodium 137 mmol/L (137-145); Total Bilirubin 0.6 mg/dL (0.2-1.3); Total Protein 7.9 g/dL (6.3-8.2)
--- NOTE | 2020-10-29 16:21 | CT ---
EXAMINATION TYPE: CT abdomen pelvis w con DATE OF EXAM: 10/29/2020 COMPARISON: 09/07/2020 INDICATION: Low pelvic pain DLP: 1103.5 mGycm, Automated exposure control for dose reduction was used. CONTRAST: 100 mL of Isovue 300. Study performed without Oral Contrast TECHNIQUE: Axial images were obtained from above the diaphragm to the pubic rami in the axial plane a t 5 mm thick sections. Reconstructed images are reviewed on the computer in the coronal plane. FINDINGS: Limited CT sections are obtained the lung bases. The lung bases are clear. CT ABDOMEN: Liver: Normal Spleen: Normal Pancreas: Normal Adrenal glands: The adrenal glands are normal. Gallbladder: Normal Kidneys: No masses are evident. No hydronephrosis is present. No cysts are present. Delayed images were obtained through the kidneys, which remain unremarkable. Aorta: Vascular calcification is within the aorta. Inferior vena cava: Normal. CT PELVIS: There is significant wall thickening to the mid sigmoid colon. This appears to begin at the proximal sigmoid colon and extends to the distal sigmoid colon above the rectal sigmoid junction. Adjacent inf lammatory changes are present. Mild diverticulosis is present. This appears more extensive however th en typical diverticulitis. Neoplasm should be considered. Obstruction is not identified. No definite abscess formation is identified. Inflammatory changes extend superiorly bladder. Free air is not erick ntified. Appendix: Normal as visualized. Urinary bladder: Normal. Genitourinary structures: Uterus and ovaries are not identified. Osseous structures: No suspicious lytic or sclerotic lesions are evident. IMPRESSIONS: 1. Large masslike area through the sigmoid colon with significant adjacent inflammatory changes susp icious for neoplasm. 2. No changes suggestive for acute pancreatitis.
[2020-10-29 17:49] VITALS: BP 108/69; PULSE 85; RESP 18; TEMP 98
== END 2020-10-29 17:52 | disposition home or self-care (01) ==
LOC: EC 13:02
DX: K57.90 Diverticulosis of intestine, part unspecified, without perforation or abscess without bleeding (principal); K85.90 Acute pancreatitis without necrosis or infection, unspecified; J44.9 Chronic obstructive pulmonary disease, unspecified; E78.5 Hyperlipidemia, unspecified; I10 Essential (primary) hypertension; M19.90 Unspecified osteoarthritis, unspecified site; F41.9 Anxiety disorder, unspecified; F32.9 Major depressive disorder, single episode, unspecified; F12.90 Cannabis use, unspecified, uncomplicated; F17.200 Nicotine dependence, unspecified, uncomplicated; I26.99 Other pulmonary embolism without acute cor pulmonale
CPT/HCPCS: 36415; 80053; 82150; 83690; 85025; 81001; 74177; 99284; 96360; 96361; Q9967

== ENCOUNTER 2020-11-28 06:06 | Day surgery (SDC) | payer OTHER ==
[2020-11-27 12:56] VITALS: BMI 27.0
[2020-11-28 06:41] VITALS: RESP 16; TEMP 97.2
[2020-11-28] MEDS: LACTATED RINGERS 1,000 ML IV SCH ×2 (06:41→07:32)
[2020-11-28] MEDS ORDERED: LIDOCAINE 1% (10MG/ML) FOR IV START INTRADERMA ONE (06:41)
[2020-11-28] MEDS ORDERED: LIDOCAINE 1% INJ 10MG/ML (20 ML MDV) ONE (07:33)
[2020-11-28] MEDS ORDERED: PROPOFOL 10 MG/ML 20 ML VIAL IV ONE (07:33)
--- NOTE | 2020-11-28 08:18 | P.PCN ---
Date of Procedure: 11/28/20 Procedure(s) Performed: BRIEF HISTORY: Patient is a 60-year-old pleasant white female scheduled for an elective colonoscopy as a part of abnormal CAT scan that showed a large ulcer in mass like area in the sigmoid colon with adjacent inflammatory changes suspicious for neoplasm. The patient had an episode of acute sigmoid diverticulitis in August 2020 and was treated with antibiotics. After that she started having some discomfort in the lower abdominal area on-and-off without bowel movements. She is scheduled for colonoscopy to evaluate further. PROCEDURE PERFORMED: Colonoscopy with snare polypectomy. PREOPERATIVE DIAGNOSIS: Recent episode of sigmoid diverticulitis/abnormal CAT scan showing large mass and really in the sigmoid colon.. IV sedation per Anesthesia. PROCEDURE: After informed consent was obtained, the patient, was brought into the endoscopy unit. IV sedation was administered by Anesthesia under continuous monitoring. Digital rectal examination was normal. Initially the Olympus CF-160 flexible video colonoscope was then inserted in the rectum, gradually advanced into the cecum extreme difficulty. The sigmoid colon was very angulated with thickened mucosa and gently the scope was gradually advanced into the cecum which took approximately 30 minutes. Careful examination was performed as the scope was gradually being withdrawn. Ileocecal valve and the appendiceal orifice were visualized and appeared normal. Prep was excellent. Mucosa of the cecum, ascending colon, transverse colon, descending colon, and proximal sigmoid colon appeared normal. There was some diverticulosis noted in the sigmoid colon. Resection of the sigmoid colon extending from 20-30 cm from the anal verge appeared edematous with small inflammatory polyp noted. Snare polypectomy was performed and 3 of these polyps measuring about 5 minutes to one centimeters size removed by snare polypectomy. The rectum appeared normal. Retroflexion was performed in the rectum and no lesions were seen. The patient tolerated the procedure well. IMPRESSION: Sigmoid narrowing extending from 20-30 cm from the anal verge with edematous mucosa, inflammatory appearing polyps status post snare polypectomy. No neoplasm noted. scattered sigmoid diverticulosis. RECOMMENDATIONS: Findings of this examination were discussed with the patient as well as a family. At this time will await biopsy results. She'll be seen in office in one to 2 weeks..
[2020-11-28 08:37] VITALS: BP 129/80; PULSE 75
== END 2020-11-28 09:03 | disposition home or self-care (01) ==
LOC: ORWHC2ENDO 06:06
PROVIDERS: ATTEND Internal Medicine Gastroenterology
DX: K63.5 Polyp of colon (principal); K57.30 Diverticulosis of large intestine without perforation or abscess without bleeding; R94.8 Abnormal results of function studies of other organs and systems; Z79.899 Other long term (current) drug therapy; J45.909 Unspecified asthma, uncomplicated; Z86.79 Personal history of other diseases of the circulatory system; Z87.19 Personal history of other diseases of the digestive system; Z88.6 Allergy status to analgesic agent; Z90.710 Acquired absence of both cervix and uterus; Z98.890 Other specified postprocedural states
CPT/HCPCS: 88305; 45385; J2001; J2704

== ENCOUNTER 2020-12-03 14:09 | Emergency (ER) | payer OTHER ==
[2020-12-03 14:16] VITALS: BP 128/79; PULSE 99; RESP 20; TEMP 99.4
[2020-12-03] MEDS ORDERED: SODIUM CHLORIDE 0.9% 1,000 ML IV STA (14:48)
--- NOTE | 2020-12-03 14:52 | ED ---
Abdominal Pain HPI - General Chief Complaint: Abdominal Pain Stated Complaint: ABD pain Time Seen by Provider: 12/03/20 14:38 Source: patient, RN notes reviewed Mode of arrival: wheelchair Limitations: no limitations - History of Present Illness Initial Comments: Patient is a 60-year-old female that presents to the emergency department complaining of abdominal pain. She notes that she recently got a colonoscopy approximately 5-[address] Vilchis and has since been having abdominal pain. She notes the pain is a 10 out of 10 while laying in bed during exam and interview patient notes that movement increases pain. She notes there is no alleviating factors pain she denied trying to take any at home medications as Tylenol Motrin aspirin Aleve all make her stomach upset. She also noted that morphine and Dilaudid make her nauseous and vomited and she does not want that at this time. Patient states that she's been having small bowel movements for several months now. She notes her only abdominal surgical history was a hysterectomy. She denied any chest pain shortness of breath headache nausea vomiting diarrhea constipation fever fatigue chills hematochezia melena. - Related Data Home Medications Medication Instructions Recorded Confirmed Multivitamins, Thera [Multivitamin 1 tab PO DAILY 01/29/16 11/27/20 (formulary)] Albuterol Nebulized [Ventolin 2.5 mg INHALATION RT-Q6H PRN 10/29/20 11/27/20 Nebulized] Previous Rx's Medication Instructions Recorded Albuterol Inhaler [Ventolin Hfa 2 puff INHALATION RT-QID PRN #1 09/11/20 Inhaler] inhalation Amoxicillin/Potassium Clav 1 tab PO Q12HR #20 tab 12/03/20 [Augmentin 875-125 Tablet] Allergies Allergy/AdvReac Type Severity Reaction Status Date / Time ibuprofen AdvReac Abdominal Verified 12/03/20 14:16 Pain Review of Systems ROS Statement: Those systems with pertinent positive or pertinent negative responses have been documented in the HPI. ROS Other: All systems not noted in ROS Statement are negative. Past Medical History Past Medical History: Asthma, COPD, Fibromyalgia, Hyperlipidemia, Hypertension, Musculoskeletal Disorder, Osteoarthritis (OA), Pulmonary Embolus (PE) Additional Past Medical History / Comment(s): Pancreatitis, chronic pain, DDD, DJD, cervical/back pain/bilateral scoliosis, spondylosis, neuropathy bilat hands and feet, pulmonary embolism R lung, brain aneurysm being monitored - last 2019, diverticulosis. Recent CT scan shows mass in colon. History of Any Multi-Drug Resistant Organisms: None Reported Past Surgical History: Hysterectomy, Tubal Ligation Additional Past Surgical History / Comment(s): D&C, angiograms d/t cerebral aneurysm. Past Anesthesia/Blood Transfusion Reactions: No Reported Reaction, Motion Sickness Additional Past Anesthesia/Blood Transfusion Reaction / Comment(s): motion sick as a child Past Psychological History: Anxiety, Depression Smoking Status: Current every day smoker Past Alcohol Use History: None Reported Past Drug Use History: Marijuana - Past Family History Mother Family Medical History: Cancer, Coronary Artery Disease (CAD) Additional Family Medical History / Comment(s): Mother had uterine cancer. Sister(s) Family Medical History: Cancer, Neurologic Disorder Additional Family Medical History / Comment(s): parkinsonism; uterine, lung cancer. Brother(s) Family Medical History: Cancer Additional Family Medical History / Comment(s): Pt had 2 brothers with cancer - 1 leukemia. General Exam Limitations: no limitations General appearance: alert, in no apparent distress Head exam: Present: atraumatic, normocephalic, normal inspection Eye exam: Present: normal appearance, PERRL, EOMI. Absent: scleral icterus, conjunctival injection, periorbital swelling Neck exam: Present: normal inspection Respiratory exam: Present: normal lung sounds bilaterally. Absent: respiratory distress, wheezes, rales, rhonchi, stridor Cardiovascular Exam: Present: regular rate, normal rhythm, normal heart sounds. Absent: systolic murmur, diastolic murmur, rubs, gallop, clicks GI/Abdominal exam: Present: soft, tenderness (Left lower quadrant that radiates to the suprapubic region.), hypoactive bowel sounds. Absent: distended, guarding, rebound, rigid Extremities exam: Present: normal inspection, full ROM, normal capillary refill. Absent: tenderness, pedal edema, joint swelling, calf tenderness Neurological exam: Present: alert, oriented X3, CN II-XII intact Psychiatric exam: Present: normal affect, normal mood Skin exam: Present: warm, dry, intact, normal color. Absent: rash Course Vital Signs 12/03/20 14:12 Temperature 99.4 F Pulse Rate 99 Respiratory 20 Rate Blood Pressure 128/79 O2 Sat by Pulse 96 Oximetry Medical Decision Making - Medical Decision Making 60-year-old female complaining of abdominal pain status post colonoscopy 5-7 days ago. Labs, CT of the abdomen and pelvis, 1 L normal saline ordered. Patient declined Tylenol, Motrin, Toradol, morphine, Dilaudid for pain control due to all of them making her sick. Labs: Mildly elevated white count at 11.2 a decrease from October labs. Rest of labs unremarkable. Case discussed with Dr. Miller, patient discharge home on antibiotic therapy and follow-up primary care. - Lab Data Result diagrams: 12/03/20 14:56 12/03/20 14:56 Lab Results 12/03/20 12/03/20 12/03/20 Range/Units 14:56 14:56 14:56 WBC 11.2 H (3.8-10.6) k/uL RBC 4.55 (3.80-5.40) m/uL Hgb 12.7 (11.4-16.0) gm/dL Hct 38.4 (34.0-46.0) % MCV 84.5 (80.0-100.0) fL MCH 27.9 (25.0-35.0) pg MCHC 33.0 (31.0-37.0) g/dL RDW 14.1 (11.5-15.5) % Plt Count 519 H (150-450) k/uL MPV 6.0 Neutrophils % 77 % Lymphocytes % 15 % Monocytes % 6 % Eosinophils % 0 % Basophils % 0 % Neutrophils # 8.7 H (1.3-7.7) k/uL Lymphocytes # 1.7 (1.0-4.8) k/uL Monocytes # 0.7 (0-1.0) k/uL Eosinophils # 0.0 (0-0.7) k/uL Basophils # 0.0 (0-0.2) k/uL Sodium 138 (137-145) mmol/L Potassium 3.9 (3.5-5.1) mmol/L Chloride 102 (98-107) mmol/L Carbon Dioxide 25 (22-30) mmol/L Anion Gap 11 mmol/L BUN 14 (7-17) mg/dL Creatinine 0.47 L (0.52-1.04) mg/dL Est GFR (CKD-EPI)AfAm >90 (>60 ml/min/1.73 sqM) Est GFR (CKD-EPI)NonAf >90 (>60 ml/min/1.73 sqM) Glucose 115 H (74-99) mg/dL Plasma Lactic Acid Cholo (0.7-2.0) mmol/L Calcium 9.4 (8.4-10.2) mg/dL Total Bilirubin 0.4 (0.2-1.3) mg/dL AST 14 (14-36) U/L ALT 7 (4-34) U/L Alkaline Phosphatase 96 (38-126) U/L Total Protein 7.4 (6.3-8.2) g/dL Albumin 3.5 (3.5-5.0) g/dL Amylase 105 (30-110) U/L Lipase 547 H (23-300) U/L Urine Color Yellow Urine Appearance Clear (Clear) Urine pH 5.0 (5.0-8.0) Ur Specific [place] 1.020 (1.001-1.035) Urine Protein Trace H (Negative) Urine Glucose (UA) Negative (Negative) Urine Ketones Negative (Negative) Urine Blood Small H (Negative) Urine Nitrite Negative (Negative) Urine Bilirubin Negative (Negative) Urine Urobilinogen <2.0 (<2.0) mg/dL Ur Leukocyte Esterase Negative (Negative) Urine RBC 1 (0-5) /hpf Urine WBC 1 (0-5) /hpf Ur Squamous Epith Cells <1 (0-4) /hpf Urine Mucus Few H (None) /hpf 12/03/20 Range/Units 14:56 WBC (3.8-10.6) k/uL RBC (3.80-5.40) m/uL Hgb (11.4-16.0) gm/dL Hct (34.0-46.0) % MCV (80.0-100.0) fL MCH (25.0-35.0) pg MCHC (31.0-37.0) g/dL RDW (11.5-15.5) % Plt Count (150-450) k/uL MPV Neutrophils % % Lymphocytes % % Monocytes % % Eosinophils % % Basophils % % Neutrophils # (1.3-7.7) k/uL Lymphocytes # (1.0-4.8) k/uL Monocytes # (0-1.0) k/uL Eosinophils # (0-0.7) k/uL Basophils # (0-0.2) k/uL Sodium (137-145) mmol/L Potassium (3.5-5.1) mmol/L Chloride (98-107) mmol/L Carbon Dioxide (22-30) mmol/L Anion Gap mmol/L BUN (7-17) mg/dL Creatinine (0.52-1.04) mg/dL Est GFR (CKD-EPI)AfAm (>60 ml/min/1.73 sqM) Est GFR (CKD-EPI)NonAf (>60 ml/min/1.73 sqM) Glucose (74-99) mg/dL Plasma Lactic Acid [place] 0.9 (0.7-2.0) mmol/L Calcium (8.4-10.2) mg/dL Total Bilirubin (0.2-1.3) mg/dL AST (14-36) U/L ALT (4-34) U/L Alkaline Phosphatase (38-126) U/L Total Protein (6.3-8.2) g/dL Albumin (3.5-5.0) g/dL Amylase (30-110) U/L Lipase (23-300) U/L Urine Color Urine Appearance (Clear) Urine pH (5.0-8.0) Ur Specific [place] (1.001-1.035) Urine Protein (Negative) Urine Glucose (UA) (Negative) Urine Ketones (Negative) Urine Blood (Negative) Urine Nitrite (Negative) Urine Bilirubin (Negative) Urine Urobilinogen (<2.0) mg/dL Ur Leukocyte Esterase (Negative) Urine RBC (0-5) /hpf Urine WBC (0-5) /hpf Ur Squamous Epith Cells (0-4) /hpf Urine Mucus (None) /hpf - Radiology Data Radiology results: report reviewed, image reviewed CT of the abdomen and pelvis: Thickening mid to distal sigmoid colon with extensive inflammatory change adjacent. Acute diverticulitis is favored within the differential colitis could be considered. Underlying mass is not excluded follow-up recommended. Disposition Clinical Impression: Abdominal pain, Diverticulitis Disposition: HOME SELF-CARE Condition: Stable Instructions (If sedation given, give patient instructions): Abdominal Pain (ED) Additional Instructions: Please return to the Emergency Department if symptoms worsen or any other concerns. Follow-up with primary care 3-5 days. Continue take at home medications as prescribed. Take antibiotics as prescribed until complete. Prescriptions: Amoxicillin/Potassium Clav [Augmentin 875-125 Tablet] 1 tab PO Q12HR #20 tab Is patient prescribed a controlled substance at d/c from ED?: No Referrals: Lennie Price MD [Primary Care Provider] - 1-2 days Time of Disposition: 16:28
[2020-12-03 15:14] LABS: Appearance,Urine Clear (Clear); Bilirubin,Urine Negative (Negative); Blood,Urine Small (Negative); Color,Urine Yellow; Glucose,Urine (UA) Negative (Negative); Ketones,Urine Negative (Negative); Leukocyte Esterase,Urine Negative (Negative); Mucus,Urine Few /hpf; Nitrite,Urine Negative (Negative); Protein,Urine Trace (Negative); RBC,Urine 1 /hpf (0-5); Squamous Epithelial Cell,Urine <1 /hpf (0-4); Urobilinogen,Urine <2.0 mg/dL (<2.0); WBC,Urine 1 /hpf (0-5)
[2020-12-03 15:17] LABS: Basophils % (A) 0 %; Eosinophils % (A) 0 %; HCT 38.4 % (34.0-46.0); HGB 12.7 gm/dL (11.4-16.0); Lymphocytes # (A) 1.7 k/uL (1.0-4.8); Lymphocytes % (A) 15 %; MCH 27.9 pg (25.0-35.0); MCV 84.5 fL (80.0-100.0); Monocytes # (A) 0.7 k/uL (0-1.0); Monocytes % (A) 6 %; Neutrophils # (A) 8.7 k/uL (1.3-7.7); Neutrophils % (A) 77 %; Platelet Count 519 k/uL (150-450); RBC 4.55 m/uL (3.80-5.40); RDW 14.1 % (11.5-15.5); WBC 11.2 k/uL (3.8-10.6)
[2020-12-03 15:22] LABS: ALT 7 U/L (4-34); AST 14 U/L (14-36); African American GFR (CKD) >90 (>60 ml/min/1.73 sqM); Albumin 3.5 g/dL (3.5-5.0); Alkaline Phosphatase 96 U/L (38-126); Amylase 105 U/L (30-110); Anion Gap 11 mmol/L; Blood Urea Nitrogen 14 mg/dL (7-17); Calcium 9.4 mg/dL (8.4-10.2); Carbon Dioxide 25 mmol/L (22-30); Chloride 102 mmol/L (98-107); Glucose 115 mg/dL (74-99); Lipase 547 U/L (23-300); Non-African American GFR(CKD) >90 (>60 ml/min/1.73 sqM); Potassium 3.9 mmol/L (3.5-5.1); Sodium 138 mmol/L (137-145); Total Bilirubin 0.4 mg/dL (0.2-1.3); Total Protein 7.4 g/dL (6.3-8.2)
--- NOTE | 2020-12-03 15:53 | CT ---
EXAMINATION TYPE: CT abdomen pelvis w con DATE OF EXAM: 12/03/2020 COMPARISON: 10/29/2020 INDICATION: Colonoscopy 5 days ago. Pain, constipation and nausea since. DLP: 1058.9 mGycm, Automated exposure control for dose reduction was used. CONTRAST: 100 mL of Isovue 300. Study performed without Oral Contrast TECHNIQUE: Axial images were obtained from above the diaphragm to the pubic rami in the axial plane a t 5 mm thick sections. Reconstructed images are reviewed on the computer in the coronal plane. FINDINGS: Limited CT sections are obtained the lung bases. The lung bases are clear. CT ABDOMEN: Liver: Normal Spleen: Normal Pancreas: Normal Adrenal glands: The adrenal glands are normal. Gallbladder: Normal Kidneys: No masses are evident. No hydronephrosis is present. No cysts are present. Delayed images were obtained through the kidneys, which remain unremarkable. Aorta: Vascular calcification is within the aorta. Inferior vena cava: Normal. CT PELVIS: There is thickened distal sigmoid colon. Inflammatory changes are adjacent. Multiple scattered divert iculi are present. Free air is not identified. Findings can be compatible with moderate acute diverti culitis in the sigmoid colon. This study is performed without oral contrast limiting bowel evaluation . Multiple small bowel loops containing fluid compatible with ileus. Fluid is within the ascending co cristiano region. Dilated suspicious loops are not otherwise evident. Appendix: Not clearly identified. Urinary bladder: Normal. Genitourinary structures: Uterus and ovaries are not identified. Osseous structures: No suspicious lytic or sclerotic lesions. Degenerative disc changes at the lumbar spine. IMPRESSIONS: 1. Thickened mid to distal sigmoid colon with extensive inflammatory change adjacent. Acute divertic ulitis is favored within the differential. Colitis could be considered. Underlying mass is not exclud ed and follow-up is recommended.
== END 2020-12-03 16:38 | disposition home or self-care (01) ==
LOC: EC 14:09
DX: K57.32 Diverticulitis of large intestine without perforation or abscess without bleeding (principal); J44.9 Chronic obstructive pulmonary disease, unspecified; M79.7 Fibromyalgia; E78.5 Hyperlipidemia, unspecified; I10 Essential (primary) hypertension; G62.9 Polyneuropathy, unspecified; F41.9 Anxiety disorder, unspecified; M19.90 Unspecified osteoarthritis, unspecified site; F32.9 Major depressive disorder, single episode, unspecified; F12.90 Cannabis use, unspecified, uncomplicated; F17.200 Nicotine dependence, unspecified, uncomplicated; Z86.711 Personal history of pulmonary embolism; Z79.51 Long term (current) use of inhaled steroids
CPT/HCPCS: 36415; 80053; 82150; 83605; 83690; 85025; 81001; 74177; 99284; 96360; Q9967

== ENCOUNTER 2020-12-10 11:56 | Inpatient (IN) | payer OTHER ==
--- NOTE | 2020-12-10 13:06 | XR ---
2 view abdomen HISTORY: Abdominal pain 2 views the abdomen on [address] scan dated 12/03/2020 Lung bases show no significant abnormality. There is no evident pneumoperitoneum or bowel obstruction . Probable phleboliths are present within the pelvis. Gas collection in the pelvis may represent absc ess formation. IMPRESSION: Findings suspicious for diverticular abscess. Report relayed to Dr. Chambers at the time o f performance of the exam
[2020-12-10] MEDS ORDERED: METOCLOPRAMIDE 5 MG/ML 2 ML VIAL IVP STA (14:24)
[2020-12-10] MEDS ORDERED: SODIUM CHLORIDE 0.9% 1,000 ML IV STA (14:24)
[2020-12-10] MEDS ORDERED: KETOROLAC 15 MG/ML 1 ML VIAL IVP STA (14:24)
[2020-12-10 14:32] LABS: African American GFR (CKD) >90 (>60 ml/min/1.73 sqM); Anion Gap 9 mmol/L; Blood Urea Nitrogen 12 mg/dL (7-17); Calcium 9.9 mg/dL (8.4-10.2); Carbon Dioxide 26 mmol/L (22-30); Chloride 105 mmol/L (98-107); Glucose 125 mg/dL (74-99); Non-African American GFR(CKD) >90 (>60 ml/min/1.73 sqM); Sodium 140 mmol/L (137-145)
--- NOTE | 2020-12-10 14:37 | ED ---
Abdominal Pain HPI - General Chief Complaint: Abdominal Pain Stated Complaint: bowel problems/Female Time Seen by Provider: 12/10/20 14:01 Source: patient Mode of arrival: ambulatory Limitations: no limitations - History of Present Illness Initial Comments: Patient is a 60-year-old female presenting to the emergency Department with complaints of abdominal pain as well as stool coming from her vagina. Patient states that on 11/28, she had a colonoscopy with Dr. Vilchis, they removed several polyps, had a lot of scar tissue from recurrent diverticulitis. 5 days later she presented to our ER with complaints of abdominal pain, CT showed acute diverticulitis, she was started on Augmentin. Now one week later she presents today with continued abdominal pain and yesterday and today she has noticed stool coming from her vagina. She states she's had frequent bowel movements over the last 2 days. Her pain has been continuous. She feels constant pr essure and discomfort in her lower abdomen. She states she did try some Tylenol this morning however doesn't seem to be helping. She did have 3 episodes of vomiting today, continued to have nausea. No fevers that she is aware of but is having chills. She admits to hysterectomy, cholecystectomy, no other abdominal surgeries. She's had recurrent diverticulitis and pancreatitis. She has no further complaints at this time. Upon arrival to the ER, she is slightly tachycardia at 105, rest of vitals are normal. - Related Data Home Medications Medication Instructions Recorded Confirmed Multivitamins, Thera [Multivitamin 1 tab PO DAILY 01/29/16 12/10/20 (formulary)] Albuterol Nebulized [Ventolin 2.5 mg INHALATION RT-Q6H PRN 10/29/20 12/10/20 Nebulized] Previous Rx's Medication Instructions Recorded Albuterol Inhaler [Ventolin Hfa 2 puff INHALATION RT-QID PRN #1 09/11/20 Inhaler] inhalation Amoxicillin/Potassium Clav 1 tab PO Q12HR #20 tab 12/03/20 [Augmentin 875-125 Tablet] Allergies Allergy/AdvReac Type Severity Reaction Status Date / Time ibuprofen AdvReac Abdominal Verified 12/10/20 16:11 Pain Review of Systems ROS Statement: Those systems with pertinent positive or pertinent negative responses have been documented in the HPI. ROS Other: All systems not noted in ROS Statement are negative. Past Medical History Past Medical History: Asthma, COPD, Fibromyalgia, Hyperlipidemia, Hypertension, Musculoskeletal Disorder, Osteoarthritis (OA), Pulmonary Embolus (PE) Additional Past Medical History / Comment(s): Pancreatitis, chronic pain, DDD, DJD, cervical/back pain/bilateral scoliosis, spondylosis, neuropathy bilat hands and feet, pulmonary embolism R lung, brain aneurysm being monitored - last 2019, diverticulosis. Recent CT scan shows mass in colon. History of Any Multi-Drug Resistant Organisms: None Reported Past Surgical History: Hysterectomy, Tubal Ligation Additional Past Surgical History / Comment(s): D&C, angiograms d/t cerebral aneurysm. Past Anesthesia/Blood Transfusion Reactions: No Reported Reaction, Motion Sickness Additional Past Anesthesia/Blood Transfusion Reaction / Comment(s): motion sick as a child Past Psychological History: Anxiety, Depression Smoking Status: Current every day smoker Past Alcohol Use History: None Reported Past Drug Use History: Marijuana - Past Family History Mother Family Medical History: Cancer, Coronary Artery Disease (CAD) Additional Family Medical History / Comment(s): Mother had uterine cancer. Sister(s) Family Medical History: Cancer, Neurologic Disorder Additional Family Medical History / Comment(s): parkinsonism; uterine, lung cancer. Brother(s) Family Medical History: Cancer Additional Family Medical History / Comment(s): Pt had 2 brothers with cancer - 1 leukemia. General Exam - General Exam Comments Initial Comments: GENERAL: Patient is well-developed and well-nourished. Patient is nontoxic and in mild distress. HEAD: Atraumatic, normocephalic. EYES: Pupils equal round and reactive to light, extraocular movements intact, sclera anicteric, conjunctiva are normal. Eyelids were unremarkable. ENT: TMs normal, nares patent, oropharynx clear without exudates. Moist mucous membranes. NECK: Normal range of motion, supple without lymphadenopathy or JVD. LUNGS: Unlabored respirations. Breath sounds clear to auscultation bilaterally and equal. No wheezes rales or rhonchi. HEART: Regular rate and rhythm without murmurs, rubs or gallops. ABDOMEN: Soft, patient has generalized tenderness around her entire abdomen, increase the lower aspect., normoactive bowel sounds. No guarding, no rebound. No masses appreciated. MUSCULOSKELETAL: Normal extremities with adequate strength and normal range of motion, no pitting or edema. No clubbing or cyanosis. NEUROLOGICAL: Patient is alert and oriented x 3. Motor and sensory are also intact. Cranial nerves II through XII grossly intact. Symmetrical smile. Normal speech, normal gait. PSYCH: Normal mood, normal affect. SKIN: Warm, Dry, normal turgor, no rashes or lesions noted. Limitations: no limitations External exam: Present: normal external exam Speculum exam: Present: other (feces present in vagina) Course Vital Signs 12/10/20 12:30 Temperature 98.4 F Pulse Rate 105 H Blood Pressure 125/70 O2 Sat by Pulse 97 Oximetry Medical Decision Making - Medical Decision Making Patient is a 60-year-old female here for abdominal pain, feces coming from her vagina since yesterday. She has had almost 2 weeks of abdominal pain following a colonoscopy she had on 11/28/[address] Vilchis. Patient was seen 1 week ago, diagnosed with acute diverticulitis, started on Augmentin. Her vital signs are stable upon arrival, she does have abdominal pain throughout her entire abdomen, worsening in the lower aspect. On pelvic exam, patient does have feces in her vagina. Labs show a white count of 17.7 which is increased from last week, lipase is 668, lactic acid is 1.5. Urine shows a few wbc's, rare bacteria. 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 Patient states she is a 10 out of 10 pain however she is refusing most pain medications. She did agree to Toradol, which seemed to help a little bit. Patient will be admitted for surgical consult. Patient was started on Flagyl and Zosyn. Blood cultures are pending. Patient accepted by Dr. Berg, is consulted Dr. Leo and Dr. Vilchis. Case discussed with Dr. Miller. - Lab Data Result diagrams: 12/10/20 14:06 12/10/20 14:50 Lab Results 12/10/20 12/10/20 12/10/20 Range/Units 14:06 14:06 14:06 WBC 17.7 H (3.8-10.6) k/uL RBC 5.09 (3.80-5.40) m/uL Hgb 14.2 (11.4-16.0) gm/dL Hct 43.3 (34.0-46.0) % MCV 85.0 (80.0-100.0) fL MCH 27.9 (25.0-35.0) pg MCHC 32.9 (31.0-37.0) g/dL RDW 14.5 (11.5-15.5) % Plt Count 603 H (150-450) k/uL MPV 6.3 Neutrophils % 84 % Lymphocytes % 10 % Monocytes % 4 % Eosinophils % 1 % Basophils % 0 % Neutrophils # 14.9 H (1.3-7.7) k/uL Lymphocytes # 1.8 (1.0-4.8) k/uL Monocytes # 0.7 (0-1.0) k/uL Eosinophils # 0.1 (0-0.7) k/uL Basophils # 0.1 (0-0.2) k/uL PT (9.0-12.0) sec INR (<1.2) APTT (22.0-30.0) sec Sodium 140 (137-145) mmol/L Potassium 4.2 (3.5-5.1) mmol/L Chloride 105 (98-107) mmol/L Carbon Dioxide 26 (22-30) mmol/L Anion Gap 9 mmol/L BUN 12 (7-17) mg/dL Creatinine 0.49 L (0.52-1.04) mg/dL Est GFR (CKD-EPI)AfAm >90 (>60 ml/min/1.73 sqM) Est GFR (CKD-EPI)NonAf >90 (>60 ml/min/1.73 sqM) Glucose 125 H (74-99) mg/dL Plasma Lactic Acid Cholo (0.7-2.0) mmol/L Calcium 9.9 (8.4-10.2) mg/dL Total Bilirubin (0.2-1.3) mg/dL AST (14-36) U/L ALT (4-34) U/L Alkaline Phosphatase (38-126) U/L Total Protein (6.3-8.2) g/dL Albumin (3.5-5.0) g/dL Lipase (23-300) U/L Urine Color Yellow Urine Appearance Cloudy H (Clear) Urine pH 5.5 (5.0-8.0) Ur Specific [place] 1.026 (1.001-1.035) Urine Protein 1+ H (Negative) Urine Glucose (UA) Negative (Negative) Urine Ketones Negative (Negative) Urine Blood Negative (Negative) Urine Nitrite Negative (Negative) Urine Bilirubin Negative (Negative) Urine Urobilinogen 2.0 (<2.0) mg/dL Ur Leukocyte Esterase Small H (Negative) Urine WBC 6 H (0-5) /hpf Ur Squamous Epith Cells 2 (0-4) /hpf Urine Bacteria Rare H (None) /hpf Urine Mucus Many H (None) /hpf 12/10/20 12/10/20 12/10/20 Range/Units 14:50 14:50 14:50 WBC (3.8-10.6) k/uL RBC (3.80-5.40) m/uL Hgb (11.4-16.0) gm/dL Hct (34.0-46.0) % MCV (80.0-100.0) fL MCH (25.0-35.0) pg MCHC (31.0-37.0) g/dL RDW (11.5-15.5) % Plt Count (150-450) k/uL MPV Neutrophils % % Lymphocytes % % Monocytes % % Eosinophils % % Basophils % % Neutrophils # (1.3-7.7) k/uL Lymphocytes # (1.0-4.8) k/uL Monocytes # (0-1.0) k/uL Eosinophils # (0-0.7) k/uL Basophils # (0-0.2) k/uL PT 10.2 (9.0-12.0) sec INR 0.9 (<1.2) APTT 22.6 (22.0-30.0) sec Sodium 140 (137-145) mmol/L Potassium 4.1 (3.5-5.1) mmol/L Chloride 105 (98-107) mmol/L Carbon Dioxide 26 (22-30) mmol/L Anion Gap 9 mmol/L BUN 12 (7-17) mg/dL Creatinine 0.51 L (0.52-1.04) mg/dL Est GFR (CKD-EPI)AfAm >90 (>60 ml/min/1.73 sqM) Est GFR (CKD-EPI)NonAf >90 (>60 ml/min/1.73 sqM) Glucose 111 H (74-99) mg/dL Plasma Lactic Acid Cholo 1.5 (0.7-2.0) mmol/L Calcium 9.3 (8.4-10.2) mg/dL Total Bilirubin 0.3 (0.2-1.3) mg/dL AST 18 (14-36) U/L ALT 9 (4-34) U/L Alkaline Phosphatase 93 (38-126) U/L Total Protein 7.3 (6.3-8.2) g/dL Albumin 3.6 (3.5-5.0) g/dL Lipase 668 H (23-300) U/L Urine Color Urine Appearance (Clear) Urine pH (5.0-8.0) Ur Specific [place] (1.001-1.035) Urine Protein (Negative) Urine Glucose (UA) (Negative) Urine Ketones (Negative) Urine Blood (Negative) Urine Nitrite (Negative) Urine Bilirubin (Negative) Urine Urobilinogen (<2.0) mg/dL Ur Leukocyte Esterase (Negative) Urine WBC (0-5) /hpf Ur Squamous Epith Cells (0-4) /hpf Urine Bacteria (None) /hpf Urine Mucus (None) /hpf Disposition Clinical Impression: Abdominal pain, Perforation of colon, Bladder fistula Disposition: ADMITTED IP TO THIS [facility] Condition: Stable Decision Date: 12/10/20 Decision Time: 16:14
[2020-12-10 14:43] LABS: Basophils # (A) 0.1 k/uL (0-0.2); Basophils % (A) 0 %; Eosinophils # (A) 0.1 k/uL (0-0.7); Eosinophils % (A) 1 %; HCT 43.3 % (34.0-46.0); HGB 14.2 gm/dL (11.4-16.0); Lymphocytes # (A) 1.8 k/uL (1.0-4.8); Lymphocytes % (A) 10 %; MCH 27.9 pg (25.0-35.0); MCHC 32.9 g/dL (31.0-37.0); Mean Platelet Volume 6.3; Monocytes # (A) 0.7 k/uL (0-1.0); Monocytes % (A) 4 %; Neutrophils # (A) 14.9 k/uL (1.3-7.7); Neutrophils % (A) 84 %; Platelet Count 603 k/uL (150-450); RBC 5.09 m/uL (3.80-5.40); RDW 14.5 % (11.5-15.5); WBC 17.7 k/uL (3.8-10.6)
[2020-12-10 15:12] LABS: Appearance,Urine Cloudy (Clear); Bacteria,Urine Rare /hpf; Bilirubin,Urine Negative (Negative); Blood,Urine Negative (Negative); Color,Urine Yellow; Glucose,Urine (UA) Negative (Negative); Ketones,Urine Negative (Negative); Leukocyte Esterase,Urine Small (Negative); Mucus,Urine Many /hpf; Nitrite,Urine Negative (Negative); PH, Urine 5.5 (5.0-8.0); Protein,Urine 1+ (Negative); Specific Gravity,Urine 1.026 (1.001-1.035); Squamous Epithelial Cell,Urine 2 /hpf (0-4); WBC,Urine 6 /hpf (0-5)
[2020-12-10 15:16] LABS: ALT 9 U/L (4-34); AST 18 U/L (14-36); African American GFR (CKD) >90 (>60 ml/min/1.73 sqM); Albumin 3.6 g/dL (3.5-5.0); Alkaline Phosphatase 93 U/L (38-126); Anion Gap 9 mmol/L; Blood Urea Nitrogen 12 mg/dL (7-17); Calcium 9.3 mg/dL (8.4-10.2); Carbon Dioxide 26 mmol/L (22-30); Chloride 105 mmol/L (98-107); Glucose 111 mg/dL (74-99); Lipase 668 U/L (23-300); Non-African American GFR(CKD) >90 (>60 ml/min/1.73 sqM); Potassium 4.1 mmol/L (3.5-5.1); Sodium 140 mmol/L (137-145); Total Bilirubin 0.3 mg/dL (0.2-1.3); Total Protein 7.3 g/dL (6.3-8.2)
[2020-12-10 15:24] LABS: INR 0.9 (<1.2); Partial Thromboplastin Time 22.6 sec (22.0-30.0); Prothrombin Time 10.2 sec (9.0-12.0)
[2020-12-10 15:24] LABS: Potassium 4.2 mmol/L (3.5-5.1)
[2020-12-10] MEDS ORDERED: PIPERACILLIN-TAZOBACTAM 3.375 GM in SODIUM CHLORIDE 0.9% 100 ML IVPB STA (15:35)
[2020-12-10] MEDS ORDERED: metroNIDAZOLE-NS PMX 500 MG in SALINE 1 100ML.BAG IVPB STA (15:35)
--- NOTE | 2020-12-10 15:47 | CT ---
EXAMINATION TYPE: CT abdomen pelvis w con DATE OF EXAM: 12/10/2020 COMPARISON: 12/03/2020 HISTORY: 60-year-old female Abdominal pain. Passing stool from vagina. Assess for abscess. TECHNIQUE: Contiguous axial scanning of the abdomen and pelvis following administration of 100 ml Iso rajwinder 300 IV contrast. Delayed images through the kidneys and coronal/sagittal reconstructions perform ed. CT DLP: 1266.7 mGycm Automated exposure control for dose reduction was used. FINDINGS: Heart normal size without pericardial effusion. Mild dependent atelectasis in the visualized lower mely ngs. Liver enlarged measuring at least 22 cm on coronal series. Portal venous system is patent. No biliary ductal dilatation. Gallbladder, adrenal glands, kidneys, spleen, and pancreas appear within normal limits. No mesenteric or retroperitoneal lymphadenopathy. Normal appendix. Liquid stool within the right hemicolon and scattered prominent fluid-filled small b owel loops throughout the abdomen. No dilated small bowel. Enlarged 1.0 cm lymph node lower left mesenteric, axial image 50 is unchanged. Inflammatory changes in the lower abdomen and pelvis centered along the mid sigmoid colon which is ab normally thickened. There is either a contained leak or fistula that extends anterior and inferior to sit on top of the dome of the bladder, reference sagittal image 75. This collection appears fairly t hick walled measuring up to 5.7 cm versus 6.2 cm, previously. Abnormal enhancing and thickened soft t issue also extends toward the right and contains a small focus of air, axial image 38. Mild pelvic fr ee fluid. Pelvic phleboliths. Bladder is collapsed. Bones: Advanced degenerative disc disease L3-L4 and L4-L5. Transitional lumbosacral segment is noted as a sacralized L5. IMPRESSION: 1. CONTINUED MASSLIKE THICKENING OF THE MID SIGMOID COLON. OVERALL DEGREE OF INFLAMMATION SHOWS SLIGH T IMPROVEMENT (THOUGH EXTENSIVE INFLAMMATION CONTINUES THROUGHOUT THE PELVIS) WITH MILD PELVIC FREE F LUID REMAINING. UNDERLYING INFLAMMATORY COLON CANCER IS SUSPECTED PROBABLY WITH PERFORATION AND DIREC T SOFT TISSUE INVASION INTO THE ADJACENT PERITONEUM. THERE IS A CONTIGUOUS CONTAINED LEAK SITUATED AB OVE THE BLADDER MEASURING 5.8 CM VERSUS 6.2 CM, PREVIOUSLY. THIS MAY BE A SOURCE OF FISTULOUS COMMUNI CATION TO THE BLADDER. 2. ENLARGED LOWER LEFT MESENTERIC LYMPH NODE AT 1 CM. 3. MILD GENERALIZED ILEUS.
[2020-12-10] MEDS ORDERED: NALOXONE 0.4 MG/ML 1 ML VIAL IV PRN (16:05)
[2020-12-10] MEDS ORDERED: KETOROLAC 15 MG/ML 1 ML VIAL IVP PRN (16:05)
[2020-12-10] MEDS ORDERED: ACETAMINOPHEN TAB 325 MG TAB PO PRN (16:05)
[2020-12-10] MEDS ORDERED: ONDANSETRON 4 MG/2 ML VIAL IVP PRN (16:05)
[2020-12-10] MEDS: SODIUM CHLORIDE 0.9% 1,000 ML IV SCH ×2 (16:17→17:57)
--- NOTE | 2020-12-10 19:20 | P.GSCN ---
History of Present Illness Consult date: 12/10/20 History of present illness: Patient seen and evaluated. She reports long-standing history of diverticulitis for over 3 months without complete resolution. She's been on different antibiotics without any improvement of symptoms. She reports new questionable stool coming from the vagina in the last 2-3 days. She's not had any prior infectious disease management. She had no structural follow-up with the general surgeon following her previous hospitalization. STUDIES: I personally reviewed her CT of the abdomen and pelvis with moderate inflammatory changes in the pelvis with diverticulitis without discrete abscess. ABDOMEN: No peritonitis LABS: WBC reviewed, elevated white count over 17,000 ASSESSMENT: 1. Complicated diverticulitis, refractory to treatment PLAN: 1. Do recommend referral to infectious disease for poorly controlled diverticulitis with failed outpatient management of antibiotics. 2. I did discuss with the patient potential of exploratory laparotomy including ostomy creation for the chronicity of her diverticulitis. 3. Recommend, antibiotic management first with close follow-up of her symptoms. Past Medical History Past Medical History: Asthma, COPD, Fibromyalgia, Hyperlipidemia, Hypertension, Musculoskeletal Disorder, Osteoarthritis (OA), Pulmonary Embolus (PE) Additional Past Medical History / Comment(s): Pancreatitis, chronic pain, DDD, DJD, cervical/back pain/bilateral scoliosis, spondylosis, neuropathy bilat hands and feet, pulmonary embolism R lung, brain aneurysm being monitored - last 2019, diverticulosis. Recent CT scan shows mass in colon. History of Any Multi-Drug Resistant Organisms: None Reported Past Surgical History: Hysterectomy, Tubal Ligation Additional Past Surgical History / Comment(s): D&C, angiograms d/t cerebral aneurysm. Past Anesthesia/Blood Transfusion Reactions: No Reported Reaction, Motion Sickness Additional Past Anesthesia/Blood Transfusion Reaction / Comm: motion sick as a child Past Psychological History: Anxiety, Depression Additional Psychological History / Comment(s): Pt lives with her son and his fiancee. She has a cane but does not need to use it. She drives. Smoking Status: Current every day smoker Past Alcohol Use History: None Reported Additional Past Alcohol Use History / Comment(s): Pt started smoking in 1977, 1/2 ppd smoker, down to few cigarettes daily. She drank heavily in the past but has not drank alcohol since 2009. Past Drug Use History: Marijuana Additional Drug Use History / Comment(s): uses daily - Past Family History Mother Family Medical History: Cancer, Coronary Artery Disease (CAD) Additional Family Medical History / Comment(s): Mother had uterine cancer. Sister(s) Family Medical History: Cancer, Neurologic Disorder Additional Family Medical History / Comment(s): parkinsonism; uterine, lung cancer. Brother(s) Family Medical History: Cancer Additional Family Medical History / Comment(s): Pt had 2 brothers with cancer - 1 leukemia. Medications and Allergies Home Medications Medication Instructions Recorded Confirmed Type Multivitamins, Thera [Multivitamin 1 tab PO DAILY 01/29/16 12/10/20 History (formulary)] Albuterol Inhaler [Ventolin Hfa 2 puff INHALATION RT-QID PRN #1 09/11/20 12/10/20 Rx Inhaler] inhalation Albuterol Nebulized [Ventolin 2.5 mg INHALATION RT-Q6H PRN 10/29/20 12/10/20 History Nebulized] Amoxicillin/Potassium Clav 1 tab PO Q12HR #20 tab 12/03/20 12/10/20 Rx [Augmentin 875-125 Tablet] Allergies Allergy/AdvReac Type Severity Reaction Status Date / Time ibuprofen AdvReac Abdominal Verified 12/10/20 16:11 Pain Surgical - Exam Vital Signs Temp Pulse BP Pulse Ox 98.4 F 105 H 125/70 97 12/10/20 12:30 12/10/20 12:30 12/10/20 12:30 12/10/20 12:30 Results - Labs 12/10/20 14:06 12/10/20 14:50 Abnormal Lab Results - Last 24 Hours (Table) 12/10/20 12/10/20 12/10/20 Range/Units 14:06 14:06 14:06 WBC 17.7 H (3.8-10.6) k/uL Plt Count 603 H (150-450) k/uL Neutrophils # 14.9 H (1.3-7.7) k/uL Creatinine 0.49 L (0.52-1.04) mg/dL Glucose 125 H (74-99) mg/dL Lipase (23-300) U/L Urine Appearance Cloudy H (Clear) Urine Protein 1+ H (Negative) Ur Leukocyte Esterase Small H (Negative) Urine WBC 6 H (0-5) /hpf Urine Bacteria Rare H (None) /hpf Urine Mucus Many H (None) /hpf 12/10/20 Range/Units 14:50 WBC (3.8-10.6) k/uL Plt Count (150-450) k/uL Neutrophils # (1.3-7.7) k/uL Creatinine 0.51 L (0.52-1.04) mg/dL Glucose 111 H (74-99) mg/dL Lipase 668 H (23-300) U/L Urine Appearance (Clear) Urine Protein (Negative) Ur Leukocyte Esterase (Negative) Urine WBC (0-5) /hpf Urine Bacteria (None) /hpf Urine Mucus (None) /hpf Diabetes panel 12/10/20 12/10/20 Range/Units 14:06 14:50 Sodium 140 140 (137-145) mmol/L Potassium 4.2 4.1 (3.5-5.1) mmol/L Chloride 105 105 (98-107) mmol/L Carbon Dioxide 26 26 (22-30) mmol/L BUN 12 12 (7-17) mg/dL Creatinine 0.49 L 0.51 L (0.52-1.04) mg/dL Glucose 125 H 111 H (74-99) mg/dL Calcium 9.9 9.3 (8.4-10.2) mg/dL AST 18 (14-36) U/L ALT 9 (4-34) U/L Alkaline Phosphatase 93 (38-126) U/L Total Protein 7.3 (6.3-8.2) g/dL Albumin 3.6 (3.5-5.0) g/dL Calcium panel 12/10/20 12/10/20 Range/Units 14:06 14:50 Calcium 9.9 9.3 (8.4-10.2) mg/dL Albumin 3.6 (3.5-5.0) g/dL Pituitary panel 12/10/20 12/10/20 Range/Units 14:06 14:50 Sodium 140 140 (137-145) mmol/L Potassium 4.2 4.1 (3.5-5.1) mmol/L Chloride 105 105 (98-107) mmol/L Carbon Dioxide 26 26 (22-30) mmol/L BUN 12 12 (7-17) mg/dL Creatinine 0.49 L 0.51 L (0.52-1.04) mg/dL Glucose 125 H 111 H (74-99) mg/dL Calcium 9.9 9.3 (8.4-10.2) mg/dL Adrenal panel 12/10/20 12/10/20 Range/Units 14:06 14:50 Sodium 140 140 (137-145) mmol/L Potassium 4.2 4.1 (3.5-5.1) mmol/L Chloride 105 105 (98-107) mmol/L Carbon Dioxide 26 26 (22-30) mmol/L BUN 12 12 (7-17) mg/dL Creatinine 0.49 L 0.51 L (0.52-1.04) mg/dL Glucose 125 H 111 H (74-99) mg/dL Calcium 9.9 9.3 (8.4-10.2) mg/dL Total Bilirubin 0.3 (0.2-1.3) mg/dL AST 18 (14-36) U/L ALT 9 (4-34) U/L Alkaline Phosphatase 93 (38-126) U/L Total Protein 7.3 (6.3-8.2) g/dL Albumin 3.6 (3.5-5.0) g/dL
[2020-12-11] MEDS: SODIUM CHLORIDE 0.9% 1,000 ML IV SCH ×2 (11:30→20:00)
[2020-12-11] MEDS: PIPERACILLIN-TAZOBACTAM 3.375 GM in SODIUM CHLORIDE 0.9% 100 ML IVPB SCH ×2 (11:30→19:56)
--- NOTE | 2020-12-11 12:10 | P.CONS ---
History of Present Illness - Reason for Consult Consult date: 12/11/20 colon Perforation, fistula Requesting physician: Santiago Berg - Chief Complaint Abdominal pain, bowel movement through vagina - History of Present Illness This is a pleasant 60-year-old white female who presented to the emergency room with complaints of abdominal pain and stool coming from her vagina. She has a significant history of diverticulitis with several episodes, she underwent a colonoscopy with Dr. Vilchis on November 28 of this year which showed sigmoid narrowing extending from 20-30 cm from the anal verge with edematous mucosa, inflammatory appearing polyp status post snare polypectomy. No neoplasm noted. Scattered sigmoid diverticulosis. Biopsy shows sigmoid polyp, cannot exclude an adenoma. The patient underwent a CT of the abdomen yesterday and showed continued masslike thickening of the mid sigmoid colon. Overall degree of inflammation shows slight improvement with mild pelvic free fluid remaining. Underlying inflammatory colon cancer is suspected probably with perforation and direct soft tissue invasion into the adjacent peritoneum. There is contiguous contained leak situated above the bladder measuring 5.8 cm versus 6.2 cm previously. This may be a source of fistulous communication to the bladder. Enlarged lower left mesenteric lymph node and 1 cm. Mild generalized ileus. She is reporting lower abdominal pain especially closer to the pelvis. She was having some vomiting yesterday morning. She states abdominal pain has improved some, no further vomiting however she does have some nausea. She states she had chills at home y esterday. She's been afebrile here. Infectious disease and surgery on consult. Current labs WBC 17.7, hemoglobin 14.2, hematocrit 43, platelets 603,000. Total bilirubin 0.3, alkaline phosphatase 93, AST 18, T9, lipase 668. Review of Systems REVIEW OF SYSTEMS: CARDIOPULMONARY: No chest pain or shortness of breath. Gastrointestinal: No abdominal pain. Reports nausea and vomiting.. No hematemesis, coffee-ground emesis. No rectal bleeding, or melena. GENITOURINARY: No dysuria or hematuria. Stool from vagina MUSCULOSKELETAL: Reports normal range of motion., Joint pain. SKIN: No rashes. No jaundice. ENDOCRINE: Unremarkable. PSYCHIATRIC: Unremarkable. NEUROLOGY: No change in mental status. Denies dizziness, headache. ENT: Vision unremarkable. CONSTITUTIONAL: No recent weight loss. No fever, chills, night sweats. Past Medical History Past Medical History: Asthma, COPD, Fibromyalgia, Hyperlipidemia, Hypertension, Musculoskeletal Disorder, Osteoarthritis (OA), Pulmonary Embolus (PE) Additional Past Medical History / Comment(s): Pancreatitis, chronic pain, DDD, DJD, cervical/back pain/bilateral scoliosis, spondylosis, neuropathy bilat hands and feet, pulmonary embolism R lung, brain aneurysm being monitored - last 2019, diverticulosis. Recent CT scan shows mass in colon. History of Any Multi-Drug Resistant Organisms: None Reported Past Surgical History: Hysterectomy, Tubal Ligation Additional Past Surgical History / Comment(s): D&C, angiograms d/t cerebral aneurysm. Past Anesthesia/Blood Transfusion Reactions: No Reported Reaction, Motion Sick ness Additional Past Anesthesia/Blood Transfusion Reaction / Comm: motion sick as a child Past Psychological History: Anxiety, Depression Smoking Status: Current every day smoker Past Alcohol Use History: None Reported Past Drug Use History: Marijuana - Past Family History Mother Family Medical History: Cancer, Coronary Artery Disease (CAD) Additional Family Medical History / Comment(s): Mother had uterine cancer. Sister(s) Family Medical History: Cancer, Neurologic Disorder Additional Family Medical History / Comment(s): parkinsonism; uterine, lung cancer. Brother(s) Family Medical History: Cancer Additional Family Medical History / Comment(s): Pt had 2 brothers with cancer - 1 leukemia. Medications and Allergies Home Medications Medication Instructions Recorded Confirmed Type Multivitamins, Thera [Multivitamin 1 tab PO DAILY 01/29/16 12/10/20 History (formulary)] Albuterol Inhaler [Ventolin Hfa 2 puff INHALATION RT-QID PRN #1 09/11/20 12/10/20 Rx Inhaler] inhalation Albuterol Nebulized [Ventolin 2.5 mg INHALATION RT-Q6H PRN 10/29/20 12/10/20 History Nebulized] Amoxicillin/Potassium Clav 1 tab PO Q12HR #20 tab 12/03/20 12/10/20 Rx [Augmentin 875-125 Tablet] Allergies Allergy/AdvReac Type Severity Reaction Status Date / Time ibuprofen AdvReac Abdominal Verified 12/10/20 16:11 Pain Physical Exam Vitals: Vital Signs Temp Pulse Pulse Resp BP BP Pulse Ox 12/11/20 05:04 98.9 F 69 18 123/74 99 12/10/20 19:32 98.3 F 82 16 109/65 96 05/19/21 17:53 98.4 F 72 16 114/69 94 L 12/10/20 12:30 98.4 F 105 H 125/70 97 Intake and Output 12/10/20 12/11/20 12/11/20 22:59 06:59 14:59 Intake Total 100 Balance 100 Intake: Intake, IV Titration 100 Amount metroNIDAZOLE-NS PMX 500 100 mg In Saline 1 100ml.bag @ 100 mls/hr IVPB ONCE STA Rx#:[id number] Other: Voiding Method Toilet Diaper # Voids 2 Weight 72.575 kg General appearance: The patient is alert, oriented, appears in no acute distress. HET: Head is normocephalic and atraumatic. Conjunctiva pink. Sclera anicteric. Neck: Supple without lymphadenopathy. Trachea midline. Heart: S1 S2. Regular rate and rhythm. Lungs: Clear to auscultation. Abdomen: Soft, pelvic and lower abdominal tenderness, nondistended with bowel sounds. No peritoneal signs. No guarding or rigidity Extremities: Normal skin color and turgor. No pedal edema. Neurological: No focal deficits. Alert and oriented 3. Results CBC & Chem 7: 12/10/20 14:06 12/10/20 14:50 Labs: Abnormal Lab Results - Last 24 Hours (Table) 12/10/20 12/10/20 12/10/20 Range/Units 14:06 14:06 14:06 WBC 17.7 H (3.8-10.6) k/uL Plt Count 603 H (150-450) k/uL Neutrophils # 14.9 H (1.3-7.7) k/uL Creatinine 0.49 L (0.52-1.04) mg/dL Glucose 125 H (74-99) mg/dL Lipase (23-300) U/L Urine Appearance Cloudy H (Clear) Urine Protein 1+ H (Negative) Ur Leukocyte Esterase Small H (Negative) Urine WBC 6 H (0-5) /hpf Urine Bacteria Rare H (None) /hpf Urine Mucus Many H (None) /hpf 12/10/20 Range/Units 14:50 WBC (3.8-10.6) k/uL Plt Count (150-450) k/uL Neutrophils # (1.3-7.7) k/uL Creatinine 0.51 L (0.52-1.04) mg/dL Glucose 111 H (74-99) mg/dL Lipase 668 H (23-300) U/L Urine Appearance (Clear) Urine Protein (Negative) Ur Leukocyte Esterase (Negative) Urine WBC (0-5) /hpf Urine Bacteria (None) /hpf Urine Mucus (None) /hpf CT scan - abdomen: report reviewed ( CT of the abdomen yesterday and showed continued masslike thickening of the mid sigmoid colon. Overall degree of inflammation shows slight improvement with mild pelvic free fluid remaining. Underlying inflammatory colon cancer is suspected probably with perforation and direct soft tissue invasion) Assessment and Plan (1) Abdominal pain Narrative/Plan: 10-year-old female who presented to the emergency department with increased lower abdominal pain along with stool coming from her vagina. Patient has significant history of diverticulitis in the past. Recently underwent a colonoscopy with Dr. Vilchis earlier this month with findings that included sigmoid narrowing extending from 20-30 cm from the anal verge with edematous mucosa, inflammatory appearing polyp status post polypectomy. No neoplasm noted. Scattered sigmoid diverticulosis. Biopsy was benign. She had abnormal CT of the abdomen at the impression stating CT of the abdomen yesterday and showed continued masslike thickening of the mid sigmoid colon. Overall degree of inflammation shows slight improvement with mild pelvic free fluid remaining. Underlying inflammatory colon cancer is suspected probably with perforation and direct soft tissue invasion into the adjacent peritoneum. There is contiguous contained leak situated above the bladder measuring 5.8 cm versus 6.2 cm previously. This may be a source of fistulous communication to the bladder. Enlarged lower left mesenteric lymph node and 1 cm. Mild generalized ileus. Infectious disease and general surgery consult. Dr. Coreas he does recommend surgical intervention, also managing IV antibiotics. Agree with surgical consult and recommendation of surgical intervention. Current Visit: Yes Status: Acute Code(s): R10.9 - UNSPECIFIED ABDOMINAL PAIN SNOMED Code(s): 86974431 (2) History of diverticulitis of colon Current Visit: Yes Status: Acute Code(s): Z87.19 - PERSONAL HISTORY OF OTHER DISEASES OF THE DIGESTIVE SYSTEM SNOMED Code(s): 545666880833259 (3) Bladder fistula Current Visit: Yes Status: Acute Code(s): N32.2 - VESICAL FISTULA, NOT ELSEWHERE CLASSIFIED SNOMED Code(s): 74553265 Plan: Continue symptomatic and supportive care Continue IV antibiotics as recommended per infectious disease Agree with infectious disease and recommend surgical intervention Surgery on consult, appreciate their recommendations Diet per surgical service recommendations Thank you for this consult and allowing us take part in the plan of care of your patient during her hospital stay Dr. Rodriguez I agree with the dictator's note, documented as a scribe by Lennie Jackson.
--- NOTE | 2020-12-11 13:12 | P.PN ---
Subjective Progress Note Date: 12/11/20 Abdominal pain has improved. No further stool through her vagina. Will start liquid diet. Patient's antibiotics has been adjusted. Objective - Vital Signs Vital signs: Vital Signs Temp 98.5 F 12/11/20 11:29 Pulse 68 12/11/20 11:29 Resp 16 12/11/20 11:29 BP 123/75 12/11/20 11:29 Pulse Ox 95 12/11/20 11:29 Intake & Output 12/10/20 12/11/20 12/11/20 18:59 06:59 18:59 Intake Total 100 Balance 100 Weight 72.575 kg Intake: Intake, IV Titration 100 Amount metroNIDAZOLE-NS PMX 500 100 mg In Saline 1 100ml.bag @ 100 mls/hr IVPB ONCE STA Rx#:[id number] Other: Voiding Method Toilet Diaper # Voids 2 - Labs CBC & Chem 7: 12/10/20 14:06 12/10/20 14:50 Labs: Abnormal Lab Results - Last 24 Hours (Table) 12/10/20 12/10/20 12/10/20 Range/Units 14:06 14:06 14:06 WBC 17.7 H (3.8-10.6) k/uL Plt Count 603 H (150-450) k/uL Neutrophils # 14.9 H (1.3-7.7) k/uL Creatinine 0.49 L (0.52-1.04) mg/dL Glucose 125 H (74-99) mg/dL Lipase (23-300) U/L Urine Appearance Cloudy H (Clear) Urine Protein 1+ H (Negative) Ur Leukocyte Esterase Small H (Negative) Urine WBC 6 H (0-5) /hpf Urine Bacteria Rare H (None) /hpf Urine Mucus Many H (None) /hpf 12/10/20 Range/Units 14:50 WBC (3.8-10.6) k/uL Plt Count (150-450) k/uL Neutrophils # (1.3-7.7) k/uL Creatinine 0.51 L (0.52-1.04) mg/dL Glucose 111 H (74-99) mg/dL Lipase 668 H (23-300) U/L Urine Appearance (Clear) Urine Protein (Negative) Ur Leukocyte Esterase (Negative) Urine WBC (0-5) /hpf Urine Bacteria (None) /hpf Urine Mucus (None) /hpf
[2020-12-11] MEDS: NYSTATIN 100,000 UNIT/GM OINT 30 GM TUBE TOPICAL SCH (20:00)
--- NOTE | 2020-12-11 23:31 | CONS ---
CONSULTATION DATE OF SERVICE: 12/11/2020 REASON FOR CONSULTATION: Complicated diverticulitis. HISTORY OF PRESENT ILLNESS: The patient is a 60-year-old female who has been dealing with diverticulitis since 's in August of 2019. The patient mentioned she was admitted to the hospital and was treated with IV, then oral antibiotic therapy. In August she was seen by hospitalist along with GI Services, and the patient was treated with Augmentin for 6 days in addition to oral Flagyl for 6 days. The patient mentioned she did have initial improvement in her symptoms of diverticulitis; however, the moment antibiotics were completed, she did have a flareup, and since then she has been treated with 3 different courses of the same oral antibiotics. The patient is now presenting back to the hospital yesterday afternoon for evaluation of abdominal pain that has been getting worse. She also is complaining of stool coming from the vagina. The patient recently did have a colonoscopy with Dr. Vilchis completed on 11/28 with evidence of polyps and scar tissue from recurrent diverticulitis. Five days later the patient presented to the ER with complaints of abdominal pain. CT showed diverticulitis and the patient was discharged on Augmentin. The patient has been taking that antibiotic but noted having stool coming from her vagina. That has concerned her and she presented back to the hospital. Patient is also complaining of pain to her abdominal area, more of a dull aching to sharp, intensity almost 10/10 in severity with associated nausea but no vomiting. She did have some diarrhea. No blood or mucus in the stool. With these symptoms, the patient was evaluated by the ER physician. On arrival in the ER the patient was afebrile. The patient did have a white count of 17.7. Urine was mildly positive. Cooley PCR was negative. The patient had a CT of the abdomen and pelvis which shows masslike thickening of the mid sigmoid colon inflammation with mild pelvic free fluid remaining with a contained leak situated above the bladder measuring 5.8 cm. The patient was admitted to the hospital. She did receive one dose of Zosyn. Infectious Disease was consulted for further management of her antibiotic therapy. REVIEW OF SYSTEMS: Positive points have been mentioned in the HPI. Rest of the systems are negative. PAST MEDICAL HISTORY: Significant for recurrent episodes of diverticulitis, COPD, fibromyalgia, hypertension, hyperlipidemia, PE, osteomyelitis. PAST SURGICAL HISTORY: Hysterectomy, tubal ligation. SOCIAL HISTORY: Current everyday smoker. No alcohol drinking. Does admit to marijuana use. FAMILY HISTORY: Mother with history of uterine cancer and coronary artery disease. Father with a history of leukemia. ALLERGIES: IBUPROFEN. MEDICATIONS: The patient is currently on Tylenol, Toradol, Narcan, Mycostatin ointment, Zofran, IV fluid. PHYSICAL EXAMINATION: Blood pressure is 123/75 with a pulse of 58, temperature 98.5. She is 95% on room air. General description is a middle-aged female lying in bed in no distress. No tachypnea or accessory muscle of respiration use. HEENT: Examination shows no pallor or scleral icterus. Oral mucous membrane is dry. NECK: Trachea is central. No thyromegaly. LUNGS: Unlabored breathing. Decreased intensity of breath sounds. No wheeze. HEART: S1, S2. Regular rate and rhythm. ABDOMEN: Soft. Mild tenderness in left lower quadrant. No guarding or rigidity. EXTREMITIES: No edema of the feet. SKIN EXAMINATION: No rash or mass palpable. Neurologically the patient is awake, alert, oriented x3. Mood and affect normal. LABS: Hemoglobin is 14.2, white count 17.7, BUN of 12, creatinine 0.51. CT report as mentioned above. DIAGNOSTIC IMPRESSION AND PLAN: Patient with complicated sigmoid diverticulitis, now with concern for development of a colovaginal fistula in this patient who has been complaining of stool coming out of her vagina. This patient has had multiple episodes of diverticulitis and has failed to respond to outpatient oral antibiotic therapy. PLAN: 1. The patient will be started on Zosyn 3.375 grams q.8 hours. 2. Patient needs surgery for drainage of the abscess collection of the fistula and possible diverting colostomy, as antibiotics alone may not be able to completely heal this infection. This has been explained to the patient in detail. 3. Will follow her clinical condition and further adjust medication if needed. Thank you for this consultation. Will follow this patient along with you. MMODL / IJN: [id number] /
[2020-12-12] MEDS: SODIUM CHLORIDE 0.9% 1,000 ML IV SCH ×3 (01:53→16:33)
[2020-12-12] MEDS: PIPERACILLIN-TAZOBACTAM 3.375 GM in SODIUM CHLORIDE 0.9% 100 ML IVPB SCH ×3 (02:10→18:04)
[2020-12-12] MEDS: NYSTATIN 100,000 UNIT/GM OINT 30 GM TUBE TOPICAL SCH ×2 (08:10→20:26)
--- NOTE | 2020-12-12 08:40 | P.HPIM ---
History of Present Illness H&P Date: 12/11/20 Chief Complaint: rectal pain, fistula Kamryn Martin is a 60-year-old white female who presented to the emergency room with complaints of abdominal pain and stool coming from her vagina. She has a significant history of diverticulitis with several episodes, she underwent a colonoscopy two weeks ago which showed sigmoid narrowing extending from 20-30 cm from the anal verge with edematous mucosa, inflammatory appearing polyp status post snare polypectomy. No neoplasm noted. The patient underwent a CT of the abdomen yesterday and showed continued masslike thickening of the mid sigmoid colon. Overall degree of inflammation shows slight improvement with mild pelvic free fluid remaining. Underlying inflammatory colon cancer is suspected probably with perforation and direct soft tissue invasion into the adjacent peritoneum. There is contiguous contained leak situated above the bladder measuring 5.8 cm versus 6.2 cm previously. This may be a source of fistulous communication to the bladder. Enlarged lower left mesenteric lymph node and 1 cm. Mild generalized ileus. She is reporting lower abdominal pain especially closer to the pelvis. She was having some vomiting yesterday morning. She states abdominal pain has improved some, no further vomiting howev er she does have some nausea. She states she had chills at home yesterday. She's been afebrile here. Infectious disease and surgery on consult. WBC 17.7, platelets 603,000, total bilirubin 0.3, alkaline phosphatase 93, AST 18, T9, lipase 668. Review of Systems All systems: negative Constitutional: Reports chills, Reports malaise, Denies fever Eyes: denies blurred vision, denies pain Ears, nose, mouth and throat: Denies headache, Denies sore throat Cardiovascular: Denies chest pain, Denies shortness of breath Respiratory: Denies cough Gastrointestinal: Reports as per HPI, Reports abdominal pain, Denies diarrhea, Denies nausea, Denies vomiting Genitourinary: Denies dysuria, Denies hematuria Musculoskeletal: Denies myalgias Integumentary: Denies pruritus, Denies rash Neurological: Denies numbness, Denies weakness Psychiatric: Denies anxiety, Denies depression Endocrine: Denies fatigue, Denies weight change Past Medical History Past Medical History: Asthma, COPD, Fibromyalgia, Hyperlipidemia, Hypertension, Musculoskeletal Disorder, Osteoarthritis (OA), Pulmonary Embolus (PE) Additional Past Medical History / Comment(s): Pancreatitis, chronic pain, DDD, DJD, cervical/back pain/bilateral scoliosis, spondylosis, neuropathy bilat hands and feet, pulmonary embolism R lung, brain aneurysm being monitored - last 2019, diverticulosis. Recent CT scan shows mass in colon. History of Any Multi-Drug Resistant Organisms: None Reported Past Surgical History: Hysterectomy, Tubal Ligation Additional Past Surgical History / Comment(s): D&C, angiograms d/t cerebral aneurysm. Past Anesthesia/Blood Transfusion Reactions: No Reported Reaction, Motion Sickness Additional Past Anesthesia/Blood Transfusion Reaction / Comment(s): motion sick as a child Past Psychological History: Anxiety, Depression Smoking Status: Current every day smoker Past Alcohol Use History: None Reported Past Drug Use History: Marijuana - Past Family History Mother Family Medical History: Cancer, Coronary Artery Disease (CAD) Additional Family Medical History / Comment(s): Mother had uterine cancer. Sister(s) Family Medical History: Cancer, Neurologic Disorder Additional Family Medical History / Comment(s): parkinsonism; uterine, lung cancer. Brother(s) Family Medical History: Cancer Additional Family Medical History / Comment(s): Pt had 2 brothers with cancer - 1 leukemia. Medications and Allergies Home Medications Medication Instructions Recorded Confirmed Type Multivitamins, Thera [Multivitamin 1 tab PO DAILY 01/29/16 12/10/20 History (formulary)] Albuterol Inhaler [Ventolin Hfa 2 puff INHALATION RT-QID PRN #1 09/11/20 12/10/20 Rx Inhaler] inhalation Albuterol Nebulized [Ventolin 2.5 mg INHALATION RT-Q6H PRN 10/29/20 12/10/20 History Nebulized] Amoxicillin/Potassium Clav 1 tab PO Q12HR #20 tab 12/03/20 12/10/20 Rx [Augmentin 875-125 Tablet] Allergies Allergy/AdvReac Type Severity Reaction Status Date / Time ibuprofen AdvReac Abdominal Verified 12/10/20 16:11 Pain Physical Exam Vitals: Vital Signs Temp Pulse Resp BP Pulse Ox 12/12/20 04:52 97.8 F 59 L 18 132/69 96 12/11/20 20:55 98.1 F 61 18 134/67 95 12/11/20 11:29 98.5 F 68 16 123/75 95 Intake and Output 12/11/20 12/12/20 12/12/20 22:59 06:59 14:59 Other: Voiding Method Toilet Diaper # Voids 2 General: well developed, well nourished, NAD HEENT: normocephalic, atraumatic, mucus membranes moist Neck: supple, no thyromegaly no JVD CV: RRR, no murmur, pulses 2+ Lungs: normal effort, clear throughout Abd: soft, nondistended, tender lower quadrants bilaterally Neuro: alert and oriented x3, no focal deficits Skin: warm and dry Results CBC & Chem 7: 12/10/20 14:06 12/10/20 14:50 Labs: Microbiology - Last 24 Hours (Table) 12/10/20 16:00 Blood Culture - Preliminary Blood No Growth after 24 hours 12/10/20 16:00 Blood Culture - Preliminary Blood No Growth after 24 hours Thrombosis Risk Factor Assmnt - Choose All That Apply Each Factor Represents 1 point: Abnormal pulmonary function (COPD), Age 41-60 years Each Risk Factor Represents 3 Points: History of DVT/PE Thrombosis Risk Factor Assessment Total Risk Factor Score: 5 Thrombosis Risk Factor Assessment Level: High Risk Assessment and Plan (1) Bladder fistula Current Visit: Yes Status: Acute Code(s): N32.2 - VESICAL FISTULA, NOT ELSEWHERE CLASSIFIED SNOMED Code(s): 50808814 (2) Perforation of colon Current Visit: Yes Status: Acute Code(s): K63.1 - PERFORATION OF INTESTINE (NONTRAUMATIC) SNOMED Code(s): 09561580 (3) Colitis Current Visit: No Status: Acute Code(s): K52.9 - NONINFECTIVE GASTROENTERITIS AND COLITIS, UNSPECIFIED SNOMED Code(s): 07940154 (4) Diverticulitis Current Visit: No Status: Acute Code(s): K57.92 - DVTRCLI OF INTEST, PART UNSP, W/O PERF OR ABSCESS W/O BLEED SNOMED Code(s): 929717098 Plan: 1. Acute colitis, colon perforation and fistula. Suspicion for colon cancer, surgery, GI and ID consulted. Treat with zosyn, plan for surgical management
--- NOTE | 2020-12-12 15:28 | P.PN ---
Subjective Progress Note Date: 12/12/20 Principal diagnosis: Fistula, perforation Patient is seen and examined lying in bed. She states her abdominal pain has improved significantly. She says her stools have decreased, and is only having a small amount of mucousy output from her rectum and vagina. She denies any na usea or vomiting. Objective - Vital Signs Vital signs: Vital Signs Temp 97.8 F 12/12/20 04:52 Pulse 59 L 12/12/20 04:52 Resp 18 12/12/20 04:52 BP 132/69 12/12/20 04:52 Pulse Ox 96 12/12/20 04:52 Intake & Output 12/11/20 12/12/20 12/12/20 18:59 06:59 18:59 Other: Voiding Method Toilet Toilet Diaper # Voids 2 - Exam General appearance: The patient is alert, oriented, appears in no acute distress. HET: Head is normocephalic and atraumatic. Conjunctiva pink. Sclera anicteric. Neck: Supple without lymphadenopathy. Abdomen: Soft, nontender, nondistended with bowel sounds. No guarding or rigidity. Extremities: Normal skin color and turgor. No pedal edema Skin: No rashes, no jaundice Neurological: No focal deficits. Alert and oriented 3. - Labs CBC & Chem 7: 12/10/20 14:06 12/10/20 14:50 Labs: Microbiology - Last 24 Hours (Table) 12/10/20 16:00 Blood Culture - Preliminary Blood No Growth after 24 hours 12/10/20 16:00 Blood Culture - Preliminary Blood No Growth after 24 hours Assessment and Plan (1) Abdominal pain Narrative/Plan: 10-year-old female who presented to the emergency department with increased lower abdominal pain along with stool coming from her vagina. Patient has significant history of diverticulitis in the past. Recently underwent a colonoscopy with Dr. Vilchis earlier this month with findings that included sigmoid narrowing extending from 20-30 cm from the anal verge with edematous mucosa, inflammatory appearing polyp status post polypectomy. No neoplasm noted. Scattered sigmoid diverticulosis. Biopsy was benign. She had abnormal CT of the abdomen at the impression stating CT of the abdomen yesterday and showed continued masslike thickening of the mid sigmoid colon. Overall degree of inflammation shows slight improvement with mild pelvic free fluid remaining. Underlying inflammatory colon cancer is suspected probably with perforation and direct soft tissue invasion into the adjacent peritoneum. There is contiguous contained leak situated above the bladder measuring 5.8 cm versus 6.2 cm previously. This may be a source of fistulous communication to the bladder. Enlarged lower left mesenteric lymph node and 1 cm. Mild generalized ileus. Infectious disease and general surgery consult. Dr. Coreas he does recommend surgical intervention, also managing IV antibiotics. Agree with surgical consult and recommendation of surgical intervention. Current Visit: Yes Status: Acute Code(s): R10.9 - UNSPECIFIED ABDOMINAL PAIN SNOMED Code(s): 71123825 (2) History of diverticulitis of colon Current Visit: Yes Status: Acute Code(s): Z87.19 - PERSONAL HISTORY OF OTHER DISEASES OF THE DIGESTIVE SYSTEM SNOMED Code(s): 952147545563460 (3) Bladder fistula Current Visit: Yes Status: Acute Code(s): N32.2 - VESICAL FISTULA, NOT ELSEWHERE CLASSIFIED SNOMED Code(s): 64252136 Plan: Continue symptomatic and supportive care Continue IV antibiotics as recommended per infectious disease Agree with infectious disease and recommend surgical intervention Surgery on consult, appreciate their recommendations Diet per surgical service recommendations Thank you for this consult, will be on standby at this time Dr. Rodriguez I agree with the dictator's note, documented as a scribe by Lennie Jackson.
[2020-12-12] MEDS ORDERED: ONDANSETRON 4 MG/2 ML VIAL IVP PRN (16:11)
--- NOTE | 2020-12-12 16:15 | P.PN ---
Subjective Progress Note Date: 12/12/20 Kamryn Martin is a 60-year-old white female who presented to the emergency room with complaints of abdominal pain and stool coming from her vagina. She has a significant history of diverticulitis with several episodes, she underwent a colonoscopy two weeks ago which showed sigmoid narrowing extending from 20-30 cm from the anal verge with edematous mucosa, inflammatory appearing polyp status post snare polypectomy. No neoplasm noted. The patient underwent a CT of the abdomen yesterday and showed continued masslike thickening of the mid sigmoid colon. Overall degree of inflammation shows slight improvement with mild pelvic free fluid remaining. Underlying inflammatory colon cancer is suspected probably with perforation and direct soft tissue invasion into the adjacent peritoneum. There is contiguous contained leak situated above the bladder measuring 5.8 cm versus 6.2 cm previously. This may be a source of fistulous communication to the bladder. Enlarged lower left mesenteric lymph no de and 1 cm. Mild generalized ileus. She is reporting lower abdominal pain especially closer to the pelvis. She was having some vomiting yesterday morning. She states abdominal pain has improved some, no further vomiting however she does have some nausea. She states she had chills at home yesterday. She's been afebrile here. Infectious disease and surgery on consult. WBC 17.7, platelets 603,000, total bilirubin 0.3, alkaline phosphatase 93, AST 18, T9, lipase 668. 12/12/2020 maintained on IV fluid hydration, Zosyn. Reports pain improving. No further stool passing through vagina/rectum. Complains of nausea. Denies chest pain, palpitations or shortness of breath. Afebrile. Objective - Vital Signs Vital signs: Vital Signs Temp 97.8 F 12/12/20 12:09 Pulse 68 12/12/20 12:09 Resp 17 12/12/20 12:09 BP 134/81 12/12/20 12:09 Pulse Ox 91 L 12/12/20 12:09 Intake & Output 12/11/20 12/12/20 12/12/20 18:59 06:59 18:59 Other: Voiding Method Toilet Toilet Diaper # Voids 2 - Exam General: well developed, well nourished, NAD HEENT: normocephalic, atraumatic, mucus membranes moist Neck: supple, no thyromegaly no JVD CV: RRR, no murmur, pulses 2+ Lungs: normal effort, clear throughout Abd: soft, nondistended, less tender lower quadrants bilaterally, Neuro: alert and oriented x3, no focal deficits Skin: warm and dry - Labs CBC & Chem 7: 12/10/20 14:06 12/10/20 14:50 Labs: Microbiology - Last 24 Hours (Table) 12/10/20 16:00 Blood Culture - Preliminary Blood No Growth after 24 hours 12/10/20 16:00 Blood Culture - Preliminary Blood No Growth after 24 hours Assessment and Plan Assessment: (1) Bladder fistula Current Visit: Yes Status: Acute Code(s): N32.2 - VESICAL FISTULA, NOT ELSEWHERE CLASSIFIED SNOMED Code(s): 17006939 (2) Perforation of colon Current Visit: Yes Status: Acute Code(s): K63.1 - PERFORATION OF INTESTINE (NONTRAUMATIC) SNOMED Code(s): 83005345 (3) Colitis, acute, complicated, with suspicion for colon cancer Current Visit: No Status: Acute Code(s): K52.9 - NONINFECTIVE GASTROENTERITIS AND COLITIS, UNSPECIFIED SNOMED Code(s): 67919386 (4) Diverticulitis Current Visit: No Status: Acute Code(s): K57.92 - DVTRCLI OF INTEST, PART UNSP, W/O PERF OR ABSCESS W/O BLEED SNOMED Code(s): 897612057 Plan: Continue on current medication regime ,monitoring and symptomatic treatment. Continue IV antibiotics as per infectious disease. IV fluid hydration. Pain management. Ensure supplements. Dietary consult regarding low fiber liquid diet/lactose-free. Surgical intervention recommended by both infectious disease,further surgical recommendations pending. The impression and plan of care has been dictated as directed. : I performed a history and examination of this patient, discussed the same with the dictator. I agree with the dictator's note ,documented as a scribe. Any additional findings or plans will be noted.
--- NOTE | 2020-12-12 17:05 | P.PN ---
Subjective Progress Note Date: 12/12/20 Patient seen and evaluated. She reports improvement of her symptoms from yesterday. Overall, global improvement with increased form to her bowel movements. She tolerated a full liquid diet. No further stool through her vagina. May advance diet to low fiber diet. Continue IV antibiotics in the interim. Objective - Vital Signs Vital signs: Vital Signs Temp 97.8 F 12/12/20 12:09 Pulse 68 12/12/20 12:09 Resp 17 12/12/20 12:09 BP 134/81 12/12/20 12:09 Pulse Ox 91 L 12/12/20 12:09 Intake & Output 12/11/20 12/12/20 12/12/20 18:59 06:59 18:59 Other: Voiding Method Toilet Toilet Diaper # Voids 2 - Labs CBC & Chem 7: 12/10/20 14:06 12/10/20 14:50 Labs: Microbiology - Last 24 Hours (Table) 12/10/20 16:00 Blood Culture - Preliminary Blood No Growth after 24 hours 12/10/20 16:00 Blood Culture - Preliminary Blood No Growth after 24 hours
--- NOTE | 2020-12-12 18:36 | PN ---
PROGRESS NOTE DATE OF SERVICE: 12/12/2020 REASON FOR FOLLOWUP: Complicated diverticulitis with fistula. INTERVAL HISTORY: The patient is currently afebrile. The patient's abdominal pain is slightly controlled. The patient denies having any chest pain, shortness of breath or cough. No worsening vomiting. No diarrhea. PHYSICAL EXAMINATION: Blood pressure 134/81 with a pulse of 68, temperature 97.8. She is 91% on room air. General description is a middle-aged female lying in bed in no distress. Respiratory system: Unlabored breathing, clear to auscultation anteriorly. Heart S1, S2. Regular rate and rhythm. ABDOMEN: Soft, no guarding. No rigidity. LABS: No new labs have been obtained. Blood culture has been negative. DIAGNOSTIC IMPRESSION AND PLAN: Patient with a complicated diverticulitis with fistula. Patient is covered with Zosyn. Waiting for surgery. Continue supportive care. MMODL / IJN: [id number] /
[2020-12-13] MEDS: PIPERACILLIN-TAZOBACTAM 3.375 GM in SODIUM CHLORIDE 0.9% 100 ML IVPB SCH ×3 (03:24→17:12)
[2020-12-13] MEDS: SODIUM CHLORIDE 0.9% 1,000 ML IV SCH ×4 (05:41→21:57)
[2020-12-13] MEDS: NYSTATIN 100,000 UNIT/GM OINT 30 GM TUBE TOPICAL SCH ×2 (08:26→21:56)
[2020-12-13 12:05] LABS: Basophils % (A) 1 %; Eosinophils # (A) 0.1 k/uL (0-0.7); Eosinophils % (A) 2 %; HCT 36.9 % (34.0-46.0); Lymphocytes # (A) 2.3 k/uL (1.0-4.8); Lymphocytes % (A) 40 %; MCH 27.4 pg (25.0-35.0); MCHC 32.4 g/dL (31.0-37.0); MCV 84.5 fL (80.0-100.0); Monocytes # (A) 0.4 k/uL (0-1.0); Monocytes % (A) 6 %; Neutrophils # (A) 2.9 k/uL (1.3-7.7); Neutrophils % (A) 50 %; Platelet Count 445 k/uL (150-450); RBC 4.37 m/uL (3.80-5.40); RDW 14.8 % (11.5-15.5); WBC 5.7 k/uL (3.8-10.6)
[2020-12-13 12:23] LABS: African American GFR (CKD) >90 (>60 ml/min/1.73 sqM); Anion Gap 6 mmol/L; Blood Urea Nitrogen 4 mg/dL (7-17); Calcium 8.7 mg/dL (8.4-10.2); Carbon Dioxide 26 mmol/L (22-30); Chloride 109 mmol/L (98-107); Glucose 95 mg/dL (74-99); Non-African American GFR(CKD) >90 (>60 ml/min/1.73 sqM); Potassium 3.7 mmol/L (3.5-5.1); Sodium 141 mmol/L (137-145)
--- NOTE | 2020-12-13 12:24 | P.PN ---
Subjective Progress Note Date: 12/13/20 CHIEF COMPLAINT: Complicated diverticulitis HISTORY OF PRESENT ILLNESS: The patient is a 60-year-old female who presented with stool via the vagina. Since adjustment of her antibiotics, no further stool through the vagina. She reports her urine is clear. She is having formed bowel movement. She is tolerating low fiber diet. "I ate chicken nuggets and fries." ROS: No reports of nausea and vomiting. No fevers or chills. No new chest pain. No productive sputum PHYSICAL EXAM: VITAL SIGNS: Reviewed CONSTITUTIONAL: Well developed and in no acute distress. EYES: Conjuctivae without sclera icterus. Extraocular movements grossly intact. HEAD, EARS, NOSE, THROAT: Moist buccal mucosa. Head is atraumatic, normocephalic. Hears conversational speech. No nasal drainage. NECK: Supple. No thyroidomegaly. RESPIRATORY: Non-labored respirations and equal bilateral excursions. CARDIOVASCULAR: Palpable 2+ radial pulses. ABDOMEN: No peritonitis MUSCULOSKELETAL: No gross deformity of the lower extremities noted. No clubbing. No cyanosis. SKIN: Good skin turgor. Well perfused. NEUROLOGIC: Cranial nerves II through XII grossly intact. No focal or lateralizing signs. PSYCH: Appropriate affect. Alert and oriented to person, place and time. STUDIES: Reviewed. CT of the abdomen and pelvis with severe inflammation of the sigmoid colon. This is my independent interpretation. REPORTS: Colonoscopy report from November 2020 demonstrated no neoplasm. Edema of the sigmoid colon from 20 to 30 cm with difficult of getting to the cecum. PATHOLOGY: Hyperplastic sigmoid colon. CLINICAL LABS: Reviewed. WBC normal from 17.7 to 5.1 ASSESSMENT: 1. Complicated diverticulitis with fistula PLAN: 1. Her diet is adjusted to low fiber with supplement Premier protein to augment nutrition 2. Recommend PICC line for antibiotics ideally for 2-3 weeks to calm down severe infection. 3. Colectomy described with possible ostomy pending clinic course. 4. Ideally outpatient management described to control inflammation. 5. Care plan described at length including dietary plan. Objective - Vital Signs Vital signs: Vital Signs Temp 98.2 F 12/13/20 05:00 Pulse 68 12/13/20 07:54 Resp 20 12/13/20 07:54 BP 114/72 12/13/20 05:00 Pulse Ox 96 12/13/20 05:00 Intake & Output 12/12/20 12/13/20 12/13/20 18:59 06:59 18:59 Intake Total 1560 1760 Balance 1560 1760 Intake: Intake, IV Titration 1560 1660 Amount Piperacillin-Tazobactam 3 100 .375 gm In Sodium Chloride 0.9% 100 ml @ 25 mls/hr IVPB Q8H [facility] Rx#: [id number] Sodium Chloride 0.9% 1, 1560 1560 000 ml @ 130 mls/hr IV . Q7H42M [facility] Rx#:[id number] Oral 100 Other: Voiding Method Toilet Toilet Toilet # Voids 3 - Labs CBC & Chem 7: 12/13/20 11:35 12/10/20 14:50 Labs: Microbiology - Last 24 Hours (Table) 12/10/20 16:00 Blood Culture - Preliminary Blood No Growth after 48 hours 12/10/20 16:00 Blood Culture - Preliminary Blood No Growth after 48 hours Assessment and Plan (1) Abscess of sigmoid colon due to diverticulitis Current Visit: Yes Status: Acute Code(s): K57.20 - DVTRCLI OF LG INT W PERFORATION AND ABSCESS W/O BLEEDING SNOMED Code(s): 5640502576200942 (2) Colovaginal fistula Current Visit: Yes Status: Acute Code(s): N82.4 - OTHER FEMALE INTESTINAL- GENITAL TRACT FISTULAE SNOMED Code(s): 741947990 (3) Perforation of colon Current Visit: Yes Status: Acute Code(s): K63.1 - PERFORATION OF INTESTINE (NONTRAUMATIC) SNOMED Code(s): 89015823
--- NOTE | 2020-12-13 12:31 | P.PN ---
Subjective Progress Note Date: 12/13/20 Principal diagnosis: Diverticulosis, fistula, perforation Patient seen lying in bed today, tearful, mainly regarding her diet. No complaints of any change in abdominal pain. So reporting some stool with urination. Objective - Vital Signs Vital signs: Vital Signs Temp 98.2 F 12/13/20 05:00 Pulse 68 12/13/20 07:54 Resp 20 12/13/20 07:54 BP 114/72 12/13/20 05:00 Pulse Ox 96 12/13/20 05:00 Intake & Output 12/12/20 12/13/20 12/13/20 18:59 06:59 18:59 Intake Total 1560 1760 Balance 1560 1760 Intake: Intake, IV Titration 1560 1660 Amount Piperacillin-Tazobactam 3 100 .375 gm In Sodium Chloride 0.9% 100 ml @ 25 mls/hr IVPB Q8H [facility] Rx#: [id number] Sodium Chloride 0.9% 1, 1560 1560 000 ml @ 130 mls/hr IV . Q7H42M [facility] Rx#:[id number] Oral 100 Other: Voiding Method Toilet Toilet Toilet # Voids 3 - Exam On physical examination, patient appears comfortable in no apparent distress. HEAD: Normocephalic, atraumatic. EYES: No scleral icterus. No conjunctival injection. MOUTH: No lesions, tongue midline. NECK: Trachea midline, no gross abnormalities. ABDOMEN: Soft, obese and nontender. Bowel sounds are positive. No organomegaly. No guarding or rigidity. EXTREMITIES: No pedal edema. SKIN: No rashes, no jaundice. NEUROLOGIC: Alert and oriented x3. No focal deficits. - Labs CBC & Chem 7: 12/13/20 11:35 12/13/20 11:35 Labs: Microbiology - Last 24 Hours (Table) 12/10/20 16:00 Blood Culture - Preliminary Blood No Growth after 48 hours 12/10/20 16:00 Blood Culture - Preliminary Blood No Growth after 48 hours Assessment and Plan (1) Abscess of sigmoid colon due to diverticulitis Narrative/Plan: 60-year-old female who initially presented to the hospital for lower abdominal pain and stool from her vagina with urination. Patient has a past history of diverticulitis and underwent recent colonoscopy after computed tomography scan was concerning for malignancy and at that time had findings of severely erythematous mucosa located at 20-30 cm from the anal verge with no neoplasm noted as well as diverticulosis. Computed tomography scan on current admission showed continued masslike thickening of the mid sigmoid colon with mild pelvic free fluid and concern for inflammatory colon cancer with probable perforation and direct soft tissue invasion into the adjacent peritoneum with contiguous contained leak situated above the bladder measuring 5.8 cm versus 6.2 cm previously which may be a source of fistulous communication to the bladder. Enlarged lower left mesenteric lymph node, mild generalized ileus also noted. Currently the patient is being followed by the surgical service and the infectious disease service with broad-spectrum antibiotic therapy and plan for likely outpatient surgical intervention. Current Visit: Yes Status: Acute Code(s): K57.20 - DVTRCLI OF LG INT W PERFORATION AND ABSCESS W/O BLEEDING SNOMED Code(s): 3698346816983889 (2) Abdominal pain Current Visit: Yes Status: Acute Code(s): R10.9 - UNSPECIFIED ABDOMINAL PAIN SNOMED Code(s): 54474565 (3) Colovaginal fistula Current Visit: Yes Status: Acute Code(s): N82.4 - OTHER FEMALE INTESTINAL- GENITAL TRACT FISTULAE SNOMED Code(s): 985345172 (4) History of diverticulitis of colon Current Visit: Yes Status: Acute Code(s): Z87.19 - PERSONAL HISTORY OF OTHER DISEASES OF THE DIGESTIVE SYSTEM SNOMED Code(s): 039511033265269 (5) Perforation of colon Current Visit: Yes Status: Acute Code(s): K63.1 - PERFORATION OF INTESTINE (NONTRAUMATIC) SNOMED Code(s): 63747272 Plan: Supportive care Okay for diet as per surgical recommendations Appreciate recommendations from surgical service and infectious disease service Continue broad-spectrum antibiotic therapy No plan for any endoscopic evaluation at this time Thank you for allowing us to participate in the care of the patient
--- NOTE | 2020-12-13 21:33 | P.PN ---
Subjective This is a pleasant 60 years old female with multiple medical problems , she is a patient of Dr. Price. Presents initially on 12/10 for abdominal pain and stool coming out of her vagina. Abdominal x-ray in the emergency room was suspicious for diverticular abscess, CT of the abdomen and pelvis obtained showing inflammation in the pelvic area with possible complicated diverticulitis and colovaginal fistula is suspected. Also there was a masslike thickening of the mid sigmoid colon area today I talked to the patient about these findings and th e possibility of cancer to her. She is aware. Other than that clinically she looks calm and strong. Not in distress in bed. Minimal abdominal pain, she tolerates diet well. This morning patient was upset because she was craving for cigarette, patient although she is A few cigarettes a day however she was upset with the bedside nurse this morning for the questions she was asking her and she fell driving for cigarette, she knows she cannot smoke in the hospital. I offered and she declined Xanax, gabapentin or nicotine patch. Other than that she is hemodynamically stable. Labs looks stable as well. She remains on Zosyn and IV fluids. With surgery and ID team on the case Objective - Vital Signs Vital signs: Vital Signs Temp 98.1 F 12/13/20 12:44 Pulse 57 L 12/13/20 12:44 Resp 17 12/13/20 12:44 BP 144/78 12/13/20 12:44 Pulse Ox 94 L 12/13/20 12:44 Intake & Output 12/13/20 12/13/20 12/14/20 06:59 18:59 06:59 Intake Total 1760 360 Balance 1760 360 Intake: Intake, IV Titration 1660 Amount Piperacillin-Tazobactam 3 100 .375 gm In Sodium Chloride 0.9% 100 ml @ 25 mls/hr IVPB Q8H [facility] Rx#: [id number] Sodium Chloride 0.9% 1, 1560 000 ml @ 130 mls/hr IV . [id number] [facility] Rx#:[id number] Oral 100 360 Other: Voiding Method Toilet Toilet # Voids 3 3 # Bowel Movements 1 - Exam GENERAL: The patient is alert and oriented x3, not in any acute distress. Well developed, well nourished. HEENT: Pupils are round and equally reacting to light. EOMI. No scleral icterus. No conjunctival pallor. Normocephalic, atraumatic. No pharyngeal erythema. No thyromegaly. CARDIOVASCULAR: S1 and S2 present. No murmurs, rubs, or gallops. PULMONARY: Chest is clear to auscultation, no wheezing or crackles. ABDOMEN: Soft, nontender, nondistended, normoactive bowel sounds. No palpable organomegaly. MUSCULOSKELETAL: No joint swelling or deformity. EXTREMITIES: No cyanosis, clubbing, or pedal edema. NEUROLOGICAL: Gross neurological examination did not reveal any focal deficits. SKIN: No rashes. no petechiae. 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 GI, surgery and infectious disease on the case. Patient remains on IV fluids and Zosyn. Labs and medication were reviewed.. Continue same treatment. Continue with symptomatic treatment. Resume home medication. Monitor lytes and vitals. DVT and GI prophylaxis. Further recommendationsas per clinical course of the patient DVT prophylaxis: Subcutaneous heparin GI Prophylaxis: Pepcid Prognosis is guarded
[2020-12-14] MEDS: PIPERACILLIN-TAZOBACTAM 3.375 GM in SODIUM CHLORIDE 0.9% 100 ML IVPB SCH ×3 (05:21→20:03)
[2020-12-14] MEDS: SODIUM CHLORIDE 0.9% 1,000 ML IV SCH (05:21)
--- NOTE | 2020-12-14 07:49 | PN ---
PROGRESS NOTE DATE OF SERVICE: 12/13/2020 REASON FOR FOLLOWUP: Complicated diverticulitis with colovesical fistula. INTERVAL HISTORY: Patient is afebrile. The patient is feeling slightly better. She is breathing comfortably. Abdominal pain is currently controlled. No nausea, no vomiting and denies having any further fecal output through the urethra. PHYSICAL EXAMINATION: VITAL SIGNS: Her blood pressure is 148/75 with a pulse of 72, temperature 98.2. She is 92% on room air. GENERAL DESCRIPTION: A middle-aged female lying in bed in no distress. RESPIRATORY SYSTEM: Unlabored breathing, clear to auscultation anteriorly. HEART: S1, S2. Regular rate and rhythm. ABDOMEN: Soft, no tenderness. LABS: Hemoglobin is 12.7, white count 5.7, BUN of 4, creatinine 0.51. DIAGNOSTIC IMPRESSION AND PLAN: Patient with complicated diverticulitis with an abscess and colovesical fistula. Patient clinically responding to Zosyn. Surgery wants the patient on IV antibiotics for couple weeks before any surgical intervention. We will try to arrange for the IV Zosyn in the outpatient setting and continue supportive care. MMODL / IJN: [id number] /
[2020-12-14] MEDS ORDERED: FAMOTIDINE 20 MG/2 ML VIAL IV SCH (09:00)
[2020-12-14] MEDS: NYSTATIN 100,000 UNIT/GM OINT 30 GM TUBE TOPICAL SCH ×2 (11:10→20:05)
[2020-12-14] MEDS: ENOXAPARIN 40 MG/0.4 ML SYRINGE SQ SCH (11:11)
--- NOTE | 2020-12-14 14:38 | P.PN ---
Subjective Progress Note Date: 12/14/20 CHIEF COMPLAINT: Complicated diverticulitis HISTORY OF PRESENT ILLNESS: The patient is a 60-year-old female with complicated diverticulitis including colovaginal fistula. No further reports of stool th rough her vagina. She is tolerating diet. Her abdominal pain has improved now very minimal along the lower abdomen. She tolerated Premier protein shakes. She had a solid bowel movement x 2 yesterday. She is feeling much better. ROS: No reports of nausea and vomiting. No fevers or chills. No new chest pain. No productive sputum PHYSICAL EXAM: VITAL SIGNS: Reviewed CONSTITUTIONAL: Well developed and in no acute distress. EYES: Conjuctivae without sclera icterus. Extraocular movements grossly intact. HEAD, EARS, NOSE, THROAT: Moist buccal mucosa. Head is atraumatic, normocephalic. Hears conversational speech. No nasal drainage. NECK: Supple. No thyroidomegaly. RESPIRATORY: Non-labored respirations and equal bilateral excursions. CARDIOVASCULAR: Palpable 2+ radial pulses. ABDOMEN: No peritonitis. Minimal left lower quadrant pain. MUSCULOSKELETAL: No gross deformity of the lower extremities noted. No clubbing. No cyanosis. SKIN: Good skin turgor. Well perfused. NEUROLOGIC: Cranial nerves II through XII grossly intact. No focal or lateralizing signs. PSYCH: Appropriate affect. Alert and oriented to person, place and time. CLINICAL LABS: Reviewed. No new labs ASSESSMENT: 1. Complicated diverticulitis with fistula PLAN: 1. Recommend PICC line with antibiotics for at least 3-4 weeks. 2. Following PICC line placement antibiotics, recommend outpatient follow-up for surgical intervention 3. Recommend high protein diet with premier protein three times daily for optimal recovery. 4. Care plan reviewed and agreed with patient and discussed with nurse. Objective - Vital Signs Vital signs: Vital Signs Temp 98.1 F 12/14/20 12:40 Pulse 60 12/14/20 12:40 Resp 18 12/14/20 12:40 BP 119/70 12/14/20 12:40 Pulse Ox 94 L 12/14/20 12:40 Intake & Output 12/13/20 12/14/20 12/14/20 18:59 06:59 18:59 Intake Total 360 1900 Balance 360 1900 Intake: Intake, IV Titration 900 Amount Sodium Chloride 0.9% 1, 900 000 ml @ 75 mls/hr IV . [id number] [facility] Rx#:[id number] Oral 360 1000 Other: Voiding Method Toilet Toilet Toilet # Voids 3 3 # Bowel Movements 1 1 - Labs CBC & Chem 7: 12/13/20 11:35 12/13/20 11:35 Labs: Microbiology - Last 24 Hours (Table) 12/10/20 16:00 Blood Culture - Preliminary Blood No Growth after 72 hours 12/10/20 16:00 Blood Culture - Preliminary Blood No Growth after 72 hours Assessment and Plan (1) Abscess of sigmoid colon due to diverticulitis Current Visit: Yes Status: Acute Code(s): K57.20 - DVTRCLI OF LG INT W PERFORATION AND ABSCESS W/O BLEEDING SNOMED Code(s): 2347943508955216 (2) Colovaginal fistula Current Visit: Yes Status: Acute Code(s): N82.4 - OTHER FEMALE INTESTINAL- GENITAL TRACT FISTULAE SNOMED Code(s): 185321515 (3) Perforation of colon Current Visit: Yes Status: Acute Code(s): K63.1 - PERFORATION OF INTESTINE (NONTRAUMATIC) SNOMED Code(s): 56620135
--- NOTE | 2020-12-14 15:24 | P.PN ---
Subjective This is a pleasant 60 years old female with multiple medical problems , she is a patient of Dr. Price. Presents initially on 12/10 for abdominal pain and stool coming out of her vagina. Abdominal x-ray in the emergency room was suspicious for diverticular abscess, CT of the abdomen and pelvis obtained showing inflammation in the pelvic area with possible complicated diverticulitis and colovaginal fistula is suspected. Also there was a masslike thickening of the mid sigmoid colon area today I talked to the patient about these findings and th e possibility of cancer to her. She is aware. Other than that clinically she looks calm and strong. Not in distress in bed. Minimal abdominal pain, she tolerates diet well. This morning patient was upset because she was craving for cigarette, patient although she is A few cigarettes a day however she was upset with the bedside nurse this morning for the questions she was asking her and she fell driving for cigarette, she knows she cannot smoke in the hospital. I offered and she declined Xanax, gabapentin or nicotine patch. Other than that she is hemodynamically stable. Labs looks stable as well. She remains on Zosyn and IV fluids. With surgery and ID team on the case 12/14/2020 Patient is awake and alert, she has some mild pain in the lower abdomen and on examination she has some tenderness in the left lower quadrant, she is able to tolerate diet. She is hemodynamically stable. No labs from today however yesterday labs looks stable. This morning patient was upset about her IV line in her left forearm stated that it's hurting her, IV line looks and the vein, no apparent infiltrated around it, no signs of cellulitis. Also patient has very good vein on the right side I offered to place another one for her however she declined stating that she wants to wait for anesthesiologist. I told the patient says she did not get his Zosyn this morning to give her oral antibiotic to another IV line secured and she agrees to sit however she declined to take oral antibiotics. Patient states she does not like to take oral antibiotics She states that she still craving for cigarette and she understands she cannot smoke in the hospital however she came declining nicotine patch or other medication or anxiolytics Other than that she denies chest pain or dyspnea or headache or weakness or numbness or blurred vision. Currently patient is on Zosyn, normal saline at 75 mL/h Surgery team recommended PICC line and antibiotics for 3-4 weeks patient is aware about her sigmoid masslike thickening, I told her there is risk of cancer and recommended that she follow up closely, she verbalized understanding and acceptance Objective - Vital Signs Vital signs: Vital Signs Temp 98.1 F 12/14/20 12:40 Pulse 60 12/14/20 12:40 Resp 18 12/14/20 12:40 BP 119/70 12/14/20 12:40 Pulse Ox 94 L 12/14/20 12:40 Intake & Output 12/13/20 12/14/20 12/14/20 18:59 06:59 18:59 Intake Total 360 1900 Balance 360 1900 Intake: Intake, IV Titration 900 Amount Sodium Chloride 0.9% 1, 900 000 ml @ 75 mls/hr IV . [id number] [facility] Rx#:[id number] Oral 360 1000 Other: Voiding Method Toilet Toilet Toilet # Voids 3 3 # Bowel Movements 1 1 - Exam GENERAL: The patient is alert and oriented x3, not in any acute distress. Well developed, well nourished. HEENT: Pupils are round and equally reacting to light. EOMI. No scleral icterus. No conjunctival pallor. Normocephalic, atraumatic. No pharyngeal erythema. No t hyromegaly. CARDIOVASCULAR: S1 and S2 present. No murmurs, rubs, or gallops. PULMONARY: Chest is clear to auscultation, no wheezing or crackles. ABDOMEN: Soft, nontender, nondistended, normoactive bowel sounds. No palpable organomegaly. MUSCULOSKELETAL: No joint swelling or deformity. EXTREMITIES: No cyanosis, clubbing, or pedal edema. NEUROLOGICAL: Gross neurological examination did not reveal any focal deficits. SKIN: No rashes. no petechiae. 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 GI, surgery and infectious disease on the case. Patient remains on IV fluids and Zosyn. Obtain another IV line. Patient declining oral antibiotic and other medications Labs and medication were reviewed.. Continue same treatment. Continue with s ymptomatic treatment. Resume home medication. Monitor lytes and vitals. DVT and GI prophylaxis. Further recommendationsas per clinical course of the patient DVT prophylaxis: Subcutaneous Lovenox GI Prophylaxis: Pepcid Prognosis is guarded Dr. Berg team will resume the care of the patient tomorrow
[2020-12-14 15:35] LABS: Basophils # (A) 0.1 k/uL (0-0.2); Basophils % (A) 1 %; Eosinophils # (A) 0.2 k/uL (0-0.7); Eosinophils % (A) 2 %; HCT 37.3 % (34.0-46.0); HGB 12.2 gm/dL (11.4-16.0); Lymphocytes # (A) 2.5 k/uL (1.0-4.8); Lymphocytes % (A) 24 %; MCH 27.7 pg (25.0-35.0); MCHC 32.8 g/dL (31.0-37.0); MCV 84.5 fL (80.0-100.0); Mean Platelet Volume 6.3; Monocytes # (A) 0.7 k/uL (0-1.0); Monocytes % (A) 7 %; Neutrophils # (A) 7.1 k/uL (1.3-7.7); Neutrophils % (A) 66 %; Platelet Count 407 k/uL (150-450); RBC 4.41 m/uL (3.80-5.40); RDW 15.1 % (11.5-15.5); WBC 10.7 k/uL (3.8-10.6)
[2020-12-14 15:49] LABS: African American GFR (CKD) >90 (>60 ml/min/1.73 sqM); Anion Gap 6 mmol/L; Blood Urea Nitrogen 16 mg/dL (7-17); Carbon Dioxide 26 mmol/L (22-30); Chloride 108 mmol/L (98-107); Non-African American GFR(CKD) >90 (>60 ml/min/1.73 sqM); Sodium 140 mmol/L (137-145)
[2020-12-14 15:54] LABS: Potassium 3.6 mmol/L (3.5-5.1)
--- NOTE | 2020-12-14 18:16 | P.PN ---
Subjective Progress Note Date: 12/14/20 Principal diagnosis: Diverticulosis, fistula, perforation Patient seen lying in bed today, with no acute complaints. Tolerating her diet and reporting normal bowel movements. Objective - Vital Signs Vital signs: Vital Signs Temp 97.9 F 12/14/20 05:20 Pulse 71 12/14/20 05:20 Resp 20 12/14/20 05:20 BP 161/81 12/14/20 05:20 Pulse Ox 94 L 12/14/20 05:20 Intake & Output 12/13/20 12/14/20 12/14/20 18:59 06:59 18:59 Intake Total 360 1900 Balance 360 1900 Intake: Intake, IV Titration 900 Amount Sodium Chloride 0.9% 1, 900 000 ml @ 75 mls/hr IV . [id number] [facility] Rx#:[id number] Oral 360 1000 Other: Voiding Method Toilet Toilet # Voids 3 3 # Bowel Movements 1 1 - Exam On physical examination, patient appears comfortable in no apparent distress. HEAD: Normocephalic, atraumatic. EYES: No scleral icterus. No conjunctival injection. MOUTH: No lesions, tongue midline. NECK: Trachea midline, no gross abnormalities. ABDOMEN: Soft, and nontender. Bowel sounds are positive. No organomegaly. No guarding or rigidity. EXTREMITIES: No pedal edema. SKIN: No rashes, no jaundice. NEUROLOGIC: Alert and oriented x3. No focal deficits. - Labs CBC & Chem 7: 12/14/20 14:51 12/14/20 14:51 Labs: Abnormal Lab Results - Last 24 Hours (Table) 12/13/20 Range/Units 11:35 Chloride 109 H (98-107) mmol/L BUN 4 L (7-17) mg/dL Creatinine 0.51 L (0.52-1.04) mg/dL Microbiology - Last 24 Hours (Table) 12/10/20 16:00 Blood Culture - Preliminary Blood No Growth after 72 hours 12/10/20 16:00 Blood Culture - Preliminary Blood No Growth after 72 hours Assessment and Plan (1) Abscess of sigmoid colon due to diverticulitis Narrative/Plan: 60-year-old female who initially presented to the hospital for lower abdominal pain and stool from her vagina with urination. Patient has a past history of diverticulitis and underwent recent colonoscopy after computed tomography scan was concerning for malignancy and at that time had findings of severely erythematous mucosa located at 20-30 cm from the anal verge with no neoplasm noted as well as diverticulosis. Computed tomography scan on current admission showed continued masslike thickening of the mid sigmoid colon with mild pelvic free fluid and concern for inflammatory colon cancer with probable perforation and direct soft tissue invasion into the adjacent peritoneum with contiguous contained leak situated above the bladder measuring 5.8 cm versus 6.2 cm previously which may be a source of fistulous communication to the bladder. Enlarged lower left mesenteric lymph node, mild generalized ileus also noted. Currently the patient is being followed by the surgical service and the infectious disease service with broad-spectrum antibiotic therapy and plan for discharge on IV antibiotics and outpatient surgical intervention. Current Visit: Yes Status: Acute Code(s): K57.20 - DVTRCLI OF LG INT W PERFORATION AND ABSCESS W/O BLEEDING SNOMED Code(s): 4054749697670286 (2) Abdominal pain Current Visit: Yes Status: Acute Code(s): R10.9 - UNSPECIFIED ABDOMINAL PAIN SNOMED Code(s): 05730885 (3) Colovaginal fistula Current Visit: Yes Status: Acute Code(s): N82.4 - OTHER FEMALE INTESTINAL- GENITAL TRACT FISTULAE SNOMED Code(s): 562545795 (4) History of diverticulitis of colon Current Visit: Yes Status: Acute Code(s): Z87.19 - PERSONAL HISTORY OF OTHER DISEASES OF THE DIGESTIVE SYSTEM SNOMED Code(s): 327519361819516 (5) Perforation of colon Current Visit: Yes Status: Acute Code(s): K63.1 - PERFORATION OF INTESTINE (NONTRAUMATIC) SNOMED Code(s): 01656809 Plan: Supportive care Okay for diet as per surgical recommendations Appreciate recommendations from surgical service and infectious disease service Continue broad-spectrum antibiotic therapy No plan for any endoscopic evaluation at this time Tentative plan is for continued outpatient IV antibiotics and scheduling of surgical intervention in the outpatient setting Thank you for allowing us to participate in the care of the patient, the GI service will stand by, please call us back with any questions or concerns
[2020-12-14] MEDS: FAMOTIDINE 20 MG TAB PO SCH (20:05)
[2020-12-14] MEDS ORDERED: KETOROLAC 15 MG/ML 1 ML VIAL IVP PRN (20:41)
--- NOTE | 2020-12-14 21:26 | PN ---
PROGRESS NOTE DATE OF SERVICE: 12/14/2020. REASON FOR FOLLOWUP: Complicated diverticulitis with abdominal wall abscess and colovesical fistula. INTERVAL HISTORY: The patient is currently afebrile. Patient is breathing comfortably. Abdominal pain is currently controlled. No chest pain, shortness of breath or cough. No nausea, no vomiting. PHYSICAL EXAMINATION: Blood pressure 119/70 with a pulse of 73, temperature 98.1. She is 94% on room air. General description: The patient is a middle-aged female lying in bed in no distress. RESPIRATORY SYSTEM: Unlabored breathing. Clear to auscultation anteriorly. HEART: S1, S2. Regular rate and rhythm. ABDOMEN: Soft, no tenderness. No guarding. No rigidity. LABS: Hemoglobin is 12.1, white count of 10.7, BUN of 16, creatinine 0.57. DIAGNOSTIC IMPRESSION AND PLAN: Patient with complicated diverticulitis with colovesical fistula abscess. Surgical team wants the patient on antibiotic before any surgical intervention. She will get a PICC line tomorrow. Plan for 2 weeks of Zosyn. Repeat CT scan at that point and close outpatient followup. MMODL / IJN: [id number] /
[2020-12-14 22:17] VITALS: RESP 16
[2020-12-15] MEDS: SODIUM CHLORIDE 0.9% 1,000 ML IV SCH ×2 (00:15→08:22)
[2020-12-15] MEDS: PIPERACILLIN-TAZOBACTAM 3.375 GM in SODIUM CHLORIDE 0.9% 100 ML IVPB SCH ×2 (03:24→11:34)
[2020-12-15 06:26] VITALS: BP 123/71; PULSE 59; TEMP 98.1
[2020-12-15] MEDS: FAMOTIDINE 20 MG TAB PO SCH (08:36)
[2020-12-15] MEDS: NYSTATIN 100,000 UNIT/GM OINT 30 GM TUBE TOPICAL SCH (08:36)
[2020-12-15] MEDS: ENOXAPARIN 40 MG/0.4 ML SYRINGE SQ SCH (08:36)
[2020-12-15] MEDS ORDERED: LIDOCAINE 1% INJ 10MG/ML (20 ML MDV) SQ ONE (10:11)
--- NOTE | 2020-12-15 13:37 | PN ---
PROGRESS NOTE DATE OF SERVICE: 12/15/2020 REASON FOR FOLLOWUP: abdominal abscess, complicated diverticulitis. INTERVAL HISTORY: The patient is currently afebrile. The patient is breathing comfortably. Patient is breathing comfortably. Patient denies having any chest pain or shortness of breath or cough. Abdominal pain is currently controlled. No vomiting or diarrhea. PHYSICAL EXAMINATION: Blood pressure 123/71 with a pulse of 59, temperature 98.1. She is 96% on room air. General description is a middle-aged female up in the room in no distress. RESPIRATORY SYSTEM: Unlabored breathing. Clear to auscultation anteriorly. HEART: S1, S2. Regular rate and rhythm. ABDOMEN: Soft, no tenderness. No guarding or rigidity. LABS: No new labs been obtained today. DIAGNOSTIC IMPRESSION AND PLAN: Patient with complicated diverticulitis with colovesical fistula. Overall improvement on IV antibiotics. Plan is for antibiotic for 2 weeks before and surgical intervention. She will get a PICC line, planning for Zosyn q.8 hours and close outpatient followup. MMODL / IJN: [id number] /
--- NOTE | 2020-12-15 14:57 | IR ---
EXAMINATION TYPE: IR cvc insert >=5 years DATE OF EXAM: 12/15/2020 COMPARISON: NONE CLINICAL HISTORY: Infection Needs long-term intravenous access for antibiotics. PROCEDURE: Hand hygiene obtained with soap and water and alcohol-based hand rub. After informed consent, the skin overlying the left basilic vein was localized with ultrasound and no finn to be compressible and patent. An ultrasound image was obtained and submitted on the patient's c negron. The overlying skin was prepped and draped and Lidocaine was used for local anesthesia. A skin priyank was made with a scalpel. Access was gained to the vein under ultrasound guidance with a 21 gau ge needle and a 0.018 inch wire was advanced. Access site was dilated with Peel-Away sheath and cath eter tailored to the appropriate length and advanced such that the distal tip is at the cavoatrial ju nction. Spot image was obtained verifying placement. Catheter was fixed to the skin and a sterile d ressing was placed following hemostasis. Catheter was aspirated and flushed with saline. Patient wa s discharged in stable condition without complication. Maximal barrier technique is utilized. Ultras ound image is documented on the chart. Ultrasound used with sterile technique. Fluoro time and fluoroscopic images submitted to document procedure: 228 intraoperative images, 0.9 m inutes fluoroscopy time IMPRESSION: STATUS POST ULTRASOUND AND FLUOROSCOPIC GUIDED PICC LINE PLACEMENT, READY FOR USE. THIS PROCEDURE WAS PERFORMED BY THE UNDERSIGNED.
--- NOTE | 2020-12-15 15:24 | P.PN ---
Subjective Progress Note Date: 12/15/20 CHIEF COMPLAINT: Complicated diverticulitis HISTORY OF PRESENT ILLNESS: The patient is a 60-year-old female with complicated diverticulitis including colovaginal fistula. she is tolerating diet. No re ports of abdominal pain. PICC line is in. ROS: No reports of nausea and vomiting. No fevers or chills. No new chest pain. No productive sputum PHYSICAL EXAM: VITAL SIGNS: Reviewed CONSTITUTIONAL: Well developed and in no acute distress. EYES: Conjuctivae without sclera icterus. Extraocular movements grossly intact. HEAD, EARS, NOSE, THROAT: Moist buccal mucosa. Head is atraumatic, normoc ephalic. Hears conversational speech. No nasal drainage. NECK: Supple. No thyroidomegaly. RESPIRATORY: Non-labored respirations and equal bilateral excursions. CARDIOVASCULAR: Palpable 2+ radial pulses. ABDOMEN: No peritonitis. Minimal left lower quadrant pain. MUSCULOSKELETAL: No gross deformity of the lower extremities noted. No clubbing. No cyanosis. SKIN: Good skin turgor. Well perfused. NEUROLOGIC: Cranial nerves II through XII grossly intact. No focal or lateralizing signs. PSYCH: Appropriate affect. Alert and oriented to person, place and time. CLINICAL LABS: Reviewed. No new labs ASSESSMENT: 1. Complicated diverticulitis with fistula PLAN: 1. Agree with PICC line. 2. May be discharged with PICC line and antibiotics started. Objective - Vital Signs Vital signs: Vital Signs Temp 98.1 F 12/15/20 06:15 Pulse 59 L 12/15/20 06:15 Resp 16 12/15/20 06:15 BP 123/71 12/15/20 06:15 Pulse Ox 96 12/15/20 06:15 Intake & Output 12/14/20 12/15/20 12/15/20 18:59 06:59 18:59 Intake Total 570 200 Balance 570 200 Intake: Intake, IV Titration 200 Amount Piperacillin-Tazobactam 3 200 .375 gm In Sodium Chloride 0.9% 100 ml @ 25 mls/hr IVPB Q8H [facility] Rx#: [id number] Sodium Chloride 0.9% 1, 0 000 ml @ 75 mls/hr IV . [id number] [facility] Rx#:[id number] Oral 570 Other: Voiding Method Toilet Toilet # Voids 2 2 # Bowel Movements 0 - Labs CBC & Chem 7: 12/14/20 14:51 12/14/20 14:51 Labs: Abnormal Lab Results - Last 24 Hours (Table) 12/14/20 12/14/20 Range/Units 14:51 14:51 WBC 10.7 H (3.8-10.6) k/uL Chloride 108 H (98-107) mmol/L Microbiology - Last 24 Hours (Table) 12/10/20 16:00 Blood Culture - Preliminary Blood No Growth after 96 hours 12/10/20 16:00 Blood Culture - Preliminary Blood No Growth after 96 hours Assessment and Plan (1) Abscess of sigmoid colon due to diverticulitis Current Visit: Yes Status: Acute Code(s): K57.20 - DVTRCLI OF LG INT W PERFORATION AND ABSCESS W/O BLEEDING SNOMED Code(s): 6617021568362441 (2) Colovaginal fistula Current Visit: Yes Status: Acute Code(s): N82.4 - OTHER FEMALE INTESTINAL- GENITAL TRACT FISTULAE SNOMED Code(s): 475018274 (3) Perforation of colon Current Visit: Yes Status: Acute Code(s): K63.1 - PERFORATION OF INTESTINE (NONTRAUMATIC) SNOMED Code(s): 28157257
--- NOTE | 2020-12-28 22:41 | P.DS ---
Providers Date of admission: 12/10/20 16:06 Expected date of discharge: 12/15/20 Attending physician: Santiago Berg MD Consults: 12/10/20 16:08 Consult Physician Urgent Consulting Provider: Candice Leo Consult Reason/Comments: Colon perforation/fistula Do you want consulting provider notified?: Already Contacted 12/10/20 19:20 Consult Physician Routine Consulting Provider: Kedar Coreas Consult Reason/Comments: Failed outpatient antibiotics diverticulitis Do you want consulting provider notified?: Yes Primary care physician: Lennie Price - Discharge Diagnosis(es) (1) Bladder fistula Status: Acute (2) Perforation of colon Status: Acute (3) Colitis Status: Acute (4) Diverticulitis Status: Acute Hospital Course: This is a pleasant 60 years old female with multiple medical problems , she is a patient of Dr. Price. Presents initially on 12/10 for abdominal pain and stool coming out of her vagina. Abdominal x-ray in the emergency room was suspicious for diverticular abscess, CT of the abdomen and pelvis obtained showing inflammation in the pelvic area with possible complicated diverticulitis and colovaginal fistula is suspected. Also there was a masslike thickening of the mid sigmoid colon area today I talked to the patient about these findings and the possibility of cancer to her. She is aware. Other than that clinically she looks calm and strong. Not in distress in bed. Minimal abdominal pain, she tolerates diet well. This morning patient was upset because she was craving for cigarette, patient although she is A few cigarettes a day however she was upset with the bedside nurse this morning for the questions she was asking her and she fell driving for cigarette, she knows she cannot smoke in the hospital. I offered and she declined Xanax, gabapentin or nicotine patch. Other than that she is hemodynamically stable. Labs looks stable as well. She remains on Zosyn and IV fluids. With surgery and ID team on the case 12/14/2020 Patient is awake and alert, she has some mild pain in the lower abdomen and on examination she has some tenderness in the left lower quadrant, she is able to tolerate diet. She is hemodynamically stable. No labs from today however yesterday labs looks stable. This morning patient was upset about her IV line in her left forearm stated that it's hurting her, IV line looks and the vein, no apparent infiltrated around it, no signs of cellulitis. Also patient has very good vein on the right side I offered to place another one for her however she declined stating that she wants to wait for anesthesiologist. I told the patient says she did not get his Zosyn this morning to give her oral antibiotic to another IV line secured and she agrees to sit however she declined to take oral antibiotics. Patient states she does not like to take oral antibiotics She states that she still craving for cigarette and she understands she cannot smoke in the hospital however she came declining nicotine patch or other medication or anxiolytics Other than that she denies chest pain or dyspnea or headache or weakness or numbness or blurred vision. Currently patient is on Zosyn, normal saline at 75 mL/h Surgery team recommended PICC line and antibiotics for 3-4 weeks patient is aware about her sigmoid masslike thickening, I told her there is risk of cancer and recommended that she follow up closely, she verbalized understandi ng and acceptance 12/15 Pt is improved, denies abdominal pain, vitals and labs stable. PICC placed. She is discharged in stable condition and will continue with home care and IV abx through ID. Discharge exam: well developed, NAD PICC in place RRR, no murmur CTAB Abd soft, nontender Patient Condition at Discharge: Stable Plan - Discharge Summary New Discharge Prescriptions: New Nystatin 100,000 Unit/gm Oint [Mycostatin Oint] 1 applic TOPICAL BID #60 applic Piperacillin-Tazobactam [Zosyn] 3.375 gm IVPB Q8H #84 vial Continue Multivitamins, Thera [Multivitamin (formulary)] 1 tab PO DAILY Albuterol Inhaler [Ventolin Hfa Inhaler] 2 puff INHALATION RT-QID PRN #1 inhalation PRN Reason: Shortness Of Breath Or Wheezing Albuterol Nebulized [Ventolin Nebulized] 2.5 mg INHALATION RT-Q6H PRN PRN Reason: Shortness Of Breath Discontinued Amoxicillin/Potassium Clav [Augmentin 875-125 Tablet] 1 tab PO Q12HR #20 tab Discharge Medication List Multivitamins, Thera [Multivitamin (formulary)] 1 tab PO DAILY 01/29/16 [History] Albuterol Inhaler [Ventolin Hfa Inhaler] 2 puff INHALATION RT-QID PRN #1 inhalation 09/11/20 [Rx] Albuterol Nebulized [Ventolin Nebulized] 2.5 mg INHALATION RT-Q6H PRN 10/29/20 [History] Nystatin 100,000 Unit/gm Oint [Mycostatin Oint] 1 applic TOPICAL BID #60 applic 12/15/20 [Rx] Piperacillin-Tazobactam [Zosyn] 3.375 gm IVPB Q8H #84 vial 12/15/20 [Rx] Follow up Appointment(s)/Referral(s): Candice Leo MD [STAFF PHYSICIAN] - 12/23/20 (Patient needs to call and make an appointment when discharged.) [facility] - 1 Week [facility], [REFERRING] - 1 Week Lennie Price MD [Primary Care Provider] - 12/16/20 10:00 am Kedar Coreas MD [STAFF PHYSICIAN] - 1 Week Patient Instructions/Handouts: Diverticulitis (IP), Diverticulitis Diet (DC), Peripherally Inserted Central Catheters and Midline Catheters in... (DC) Activity/Diet/Wound Care/Special Instructions: [facility] will deliver your antibiotics tonight - they will call you prior to delivery someone have to be home to sign for the meds. [facility] will be out to see you tomorrow to teach you and a support person how to do the infusions. between 8-9am Discharge Disposition: HOME WITH HOME HEALTH SERVICES
== END 2020-12-15 17:06 | disposition home health service (06) | DRG 392 ==
LOC: EC 11:56 → 5NMEDONC 16:06
PROVIDERS: ADMIT Family Medicine; ATTEND Family Medicine
PROC: 02HV33Z Insertion of Infusion Device into Superior Vena Cava, Percutaneous Approach (ICD-10-PCS; principal; 2020-12-15 15:55)
DX: K57.20 Diverticulitis of large intestine with perforation and abscess without bleeding (principal); N32.1 Vesicointestinal fistula; K56.7 Ileus, unspecified; N82.3 Fistula of vagina to large intestine; C18.7 Malignant neoplasm of sigmoid colon; I67.1 Cerebral aneurysm, nonruptured; J44.9 Chronic obstructive pulmonary disease, unspecified; Z20.822 Contact with and (suspected) exposure to COVID-19; K52.9 Noninfective gastroenteritis and colitis, unspecified; M79.7 Fibromyalgia; E78.5 Hyperlipidemia, unspecified; I10 Essential (primary) hypertension; G62.9 Polyneuropathy, unspecified; M47.9 Spondylosis, unspecified; M50.30 Other cervical disc degeneration, unspecified cervical region; M41.9 Scoliosis, unspecified; G89.29 Other chronic pain; M54.9 Dorsalgia, unspecified; F17.210 Nicotine dependence, cigarettes, uncomplicated; Z79.899 Other long term (current) drug therapy; Z86.010 Personal history of colon polyps; Z90.710 Acquired absence of both cervix and uterus; Z90.49 Acquired absence of other specified parts of digestive tract; Z87.19 Personal history of other diseases of the digestive system; Z87.42 Personal history of other diseases of the female genital tract; Z98.51 Tubal ligation status; Z86.711 Personal history of pulmonary embolism; Z86.59 Personal history of other mental and behavioral disorders; Z86.19 Personal history of other infectious and parasitic diseases; Z98.890 Other specified postprocedural states; Z88.6 Allergy status to analgesic agent; Z80.0 Family history of malignant neoplasm of digestive organs; Z80.1 Family history of malignant neoplasm of trachea, bronchus and lung; Z80.49 Family history of malignant neoplasm of other genital organs; Z82.49 Family history of ischemic heart disease and other diseases of the circulatory system; Z82.0 Family history of epilepsy and other diseases of the nervous system; Z80.6 Family history of leukemia
CPT/HCPCS: 36415; 36573; 74019; 74177; 80048; 80051; 80053; 81001; 82565; 83605; 83690; 84520; 85025; 85610; 85730; 87040; 87635; 96361; 96374; 96375; 99285

== ENCOUNTER 2021-01-05 12:37 | Inpatient (IN) | payer OTHER ==
[2021-01-05] MEDS ORDERED: SODIUM CHLORIDE 0.9% 1,000 ML IV STA (13:04)
[2021-01-05] MEDS ORDERED: PANTOPRAZOLE 40 MG/10 ML VIAL IVP STA (13:05)
[2021-01-05] MEDS ORDERED: HYDROmorphone 0.5 MG/0.5 ML SYRINGE IVP STA (13:05)
--- NOTE | 2021-01-05 13:06 | ED ---
Abdominal Pain HPI - General Chief Complaint: Abdominal Pain Stated Complaint: diverticulitis Time Seen by Provider: 01/05/21 12:50 Source: patient Mode of arrival: ambulatory Limitations: no limitations - History of Present Illness Initial Comments: 60-year-old female with history of chronic diverticular his presents to emergency Department with a chief complaint of diverticulitis. Patient reports diagnosed with diverticulitis since the beginning of this year and has been admitted multiple times for acute exacerbations. Patient reports she was re leased from the hospital about 3 weeks ago with a PICC line and started on Zosyn. She is under the care of Dr. Coreas from infectious disease. States she has been administering Zosyn home 3 times per day. States over the last 2 days she has developed more the usual lower abdominal and left lower quadrant pain. She feels like this is an exacerbation of her diverticulitis. She denies any nausea or vomiting or diarrhea. Denies any increased urgency frequency or dysuria. Denies any hematuria, hematochezia or melena. Denies any vaginal symptoms. Denies any fevers or chills. Denies any chest pain or shortness of breath. - Related Data Previous Rx's Medication Instructions Recorded Piperacillin-Tazobactam [Zosyn] 3.375 gm IVPB Q8H #84 vial 12/15/20 Allergies Allergy/AdvReac Type Severity Reaction Status Date / Time ibuprofen AdvReac Abdominal Verified 01/05/21 13:12 Pain Review of Systems ROS Statement: Those systems with pertinent positive or pertinent negative responses have been documented in the HPI. ROS Other: All systems not noted in ROS Statement are negative. Past Medical History Past Medical History: Asthma, COPD, Fibromyalgia, Hyperlipidemia, Hypertension, Musculoskeletal Disorder, Osteoarthritis (OA), Pulmonary Embolus (PE) Additional Past Medical History / Comment(s): Pancreatitis, chronic pain, DDD, DJD, cervical/back pain/bilateral scoliosis, spondylosis, neuropathy bilat hands and feet, pulmonary embolism R lung, brain aneurysm being monitored - last 2019, diverticulosis. Recent CT scan shows mass in colon. History of Any Multi-Drug Resistant Organisms: None Reported Past Surgical History: Hysterectomy, Tubal Ligation Additional Past Surgical History / Comment(s): D&C, angiograms d/t cerebral aneurysm. Past Anesthesia/Blood Transfusion Reactions: No Reported Reaction, Motion Sickness Additional Past Anesthesia/Blood Transfusion Reaction / Comment(s): motion sick as a child Past Psychological History: Anxiety, Depression Smoking Status: Former smoker Past Alcohol Use History: None Reported Past Drug Use History: Marijuana - Past Family History Mother Family Medical History: Cancer, Coronary Artery Disease (CAD) Additional Family Medical History / Comment(s): Mother had uterine cancer. Sister(s) Family Medical History: Cancer, Neurologic Disorder Additional Family Medical History / Comment(s): parkinsonism; uterine, lung cancer. Brother(s) Family Medical History: Cancer Additional Family Medical History / Comment(s): Pt had 2 brothers with cancer - 1 leukemia. General Exam Limitations: no limitations General appearance: alert, in no apparent distress Head exam: Present: atraumatic, normocephalic, normal inspection Eye exam: Present: normal appearance, PERRL, EOMI Pupils: Present: normal accommodation ENT exam: Present: normal exam, normal oropharynx, mucous membranes moist Neck exam: Present: normal inspection, full ROM. Absent: tenderness, lymphadenopathy Respiratory exam: Present: normal lung sounds bilaterally. Absent: respiratory distress Cardiovascular Exam: Present: regular rate, normal rhythm, normal heart sounds. Absent: systolic murmur GI/Abdominal exam: Present: soft, tenderness (Lower abdominal tenderness, left lower quadrant tenderness). Absent: distended, guarding, rebound, rigid Extremities exam: Present: normal inspection, full ROM, normal capillary refill. Absent: tenderness Back exam: Present: normal inspection, full ROM. Absent: tenderness, CVA tenderness (R), CVA tenderness (L) Neurological exam: Present: alert, oriented X3 Psychiatric exam: Present: normal affect, normal mood Skin exam: Present: warm, dry, intact, normal color Course Vital Signs 01/05/21 01/05/21 12:39 13:23 Temperature 99.1 F Pulse Rate 93 94 Respiratory 18 16 Rate Blood Pressure 117/74 123/71 O2 Sat by Pulse 95 97 Oximetry Medical Decision Making - Medical Decision Making 60-year-old female presents to the emergency department with a chief complaint of abdominal pain. On physical examination, lower abdominal left lower quadrant abdominal tenderness. Patient is otherwise well-appearing. CBC and CMP unremarkable. Lipase elevated at 450, however this appears to have improved compared to her most recent findings. UA shows elevated leukocyte esterase and white blood cells. There is also microscopic hematuria. Possible urinary tract infection. Urine culture is pending. CT of the pelvis reveals possible fistulous in the colonic tract. There is also persistent thick wall abscesses. I spoke with Dr. Berg who will admit patient for further medical management. Patient will be continued on the Zosyn. Nothing by mouth. IV fluids. Patient does not septic. Vital signs are within normal limits. Case discussed with Dr. Uriarte. Dr. Ellsworth has been following this patient during her last few visits, she will be also consulted this time. - Lab Data Result diagrams: 01/05/21 13:12 01/05/21 13:12 Lab Results 01/05/21 01/05/21 01/05/21 Range/Units 13:12 13:12 13:12 WBC 8.9 (3.8-10.6) k/uL RBC 4.66 (3.80-5.40) m/uL Hgb 12.7 (11.4-16.0) gm/dL Hct 40.4 (34.0-46.0) % MCV 86.8 (80.0-100.0) fL MCH 27.3 (25.0-35.0) pg MCHC 31.5 (31.0-37.0) g/dL RDW 17.1 H (11.5-15.5) % Plt Count 364 (150-450) k/uL MPV 6.5 Neutrophils % 72 % Lymphocytes % 18 % Monocytes % 7 % Eosinophils % 0 % Basophils % 0 % Neutrophils # 6.4 (1.3-7.7) k/uL Lymphocytes # 1.6 (1.0-4.8) k/uL Monocytes # 0.7 (0-1.0) k/uL Eosinophils # 0.0 (0-0.7) k/uL Basophils # 0.0 (0-0.2) k/uL Anisocytosis Slight Sodium 140 (137-145) mmol/L Potassium 4.1 (3.5-5.1) mmol/L Chloride 109 H (98-107) mmol/L Carbon Dioxide 23 (22-30) mmol/L Anion Gap 8 mmol/L BUN 9 (7-17) mg/dL Creatinine 0.48 L (0.52-1.04) mg/dL Est GFR (CKD-EPI)AfAm >90 (>60 ml/min/1.73 sqM) Est GFR (CKD-EPI)NonAf >90 (>60 ml/min/1.73 sqM) Glucose 91 (74-99) mg/dL Plasma Lactic Acid Cholo (0.7-2.0) mmol/L Calcium 9.0 (8.4-10.2) mg/dL Total Bilirubin 0.3 (0.2-1.3) mg/dL AST 20 (14-36) U/L ALT 9 (4-34) U/L Alkaline Phosphatase 67 (38-126) U/L Total Protein 7.1 (6.3-8.2) g/dL Albumin 3.7 (3.5-5.0) g/dL Lipase 452 H (23-300) U/L Urine Color Yellow Urine Appearance Clear (Clear) Urine pH 5.5 (5.0-8.0) Ur Specific [place] >1.030 (1.001-1.035) Urine Protein 1+ (Negative) Urine Glucose (UA) Negative (Negative) Urine Ketones Negative (Negative) Urine Blood Small (Negative) Urine Nitrite Negative (Negative) Urine Bilirubin Negative (Negative) Urine Urobilinogen <2.0 (<2.0) mg/dL Ur Leukocyte Esterase Large (Negative) Urine RBC 21 H (0-5) /hpf Urine WBC 72 H (0-5) /hpf Ur Squamous Epith Cells 4 (0-4) /hpf Urine Bacteria Few H (None) /hpf Urine Mucus Rare H (None) /hpf /14/ Range/Units 13:12 WBC (3.8-10.6) k/uL RBC (3.80-5.40) m/uL Hgb (11.4-16.0) gm/dL Hct (34.0-46.0) % MCV (80.0-100.0) fL MCH (25.0-35.0) pg MCHC (31.0-37.0) g/dL RDW (11.5-15.5) % Plt Count (150-450) k/uL MPV Neutrophils % % Lymphocytes % % Monocytes % % Eosinophils % % Basophils % % Neutrophils # (1.3-7.7) k/uL Lymphocytes # (1.0-4.8) k/uL Monocytes # (0-1.0) k/uL Eosinophils # (0-0.7) k/uL Basophils # (0-0.2) k/uL Anisocytosis Sodium (137-145) mmol/L Potassium (3.5-5.1) mmol/L Chloride (98-107) mmol/L Carbon Dioxide (22-30) mmol/L Anion Gap mmol/L BUN (7-17) mg/dL Creatinine (0.52-1.04) mg/dL Est GFR (CKD-EPI)AfAm (>60 ml/min/1.73 sqM) Est GFR (CKD-EPI)NonAf (>60 ml/min/1.73 sqM) Glucose (74-99) mg/dL Plasma Lactic Acid Ch[place] 0.9 (0.7-2.0) mmol/L Calcium (8.4-10.2) mg/dL Total Bilirubin (0.2-1.3) mg/dL AST (14-36) U/L ALT (4-34) U/L Alkaline Phosphatase (38-126) U/L Total Protein (6.3-8.2) g/dL Albumin (3.5-5.0) g/dL Lipase (23-300) U/L Urine Color Urine Appearance (Clear) Urine pH (5.0-8.0) Ur Specific [place] (1.001-1.035) Urine Protein (Negative) Urine Glucose (UA) (Negative) Urine Ketones (Negative) Urine Blood (Negative) Urine Nitrite (Negative) Urine Bilirubin (Negative) Urine Urobilinogen (<2.0) mg/dL Ur Leukocyte Esterase (Negative) Urine RBC (0-5) /hpf Urine WBC (0-5) /hpf Ur Squamous Epith Cells (0-4) /hpf Urine Bacteria (None) /hpf Urine Mucus (None) /hpf Disposition Clinical Impression: Diverticulitis, Abscess of sigmoid colon due to diverticulitis Disposition: ADMITTED IP TO THIS HOSP Condition: Fair Instructions (If sedation given, give patient instructions): Abscess (ED), Abscess Incision and Drainage (ED) Is patient prescribed a controlled substance at d/c from ED?: No Referrals: Lennie Price MD [Primary Care Provider] - 1-2 days Time of Disposition: 14:42
[2021-01-05 13:57] LABS: Appearance,Urine Clear (Clear); Color,Urine Yellow; PH, Urine 5.5 (5.0-8.0); Protein,Urine 1+ (Negative); Specific Gravity,Urine >1.030 (1.001-1.035)
[2021-01-05 13:58] LABS: Bilirubin,Urine Negative (Negative); Blood,Urine Small (Negative); Glucose,Urine (UA) Negative (Negative); Ketones,Urine Negative (Negative); Leukocyte Esterase,Urine Large (Negative); Nitrite,Urine Negative (Negative); Urobilinogen,Urine <2.0 mg/dL (<2.0)
[2021-01-05 14:00] LABS: Anisocytosis Slight; Basophils % (A) 0 %; Eosinophils % (A) 0 %; HCT 40.4 % (34.0-46.0); HGB 12.7 gm/dL (11.4-16.0); Lymphocytes # (A) 1.6 k/uL (1.0-4.8); Lymphocytes % (A) 18 %; MCH 27.3 pg (25.0-35.0); MCHC 31.5 g/dL (31.0-37.0); MCV 86.8 fL (80.0-100.0); Mean Platelet Volume 6.5; Monocytes # (A) 0.7 k/uL (0-1.0); Monocytes % (A) 7 %; Neutrophils # (A) 6.4 k/uL (1.3-7.7); Neutrophils % (A) 72 %; Platelet Count 364 k/uL (150-450); RBC 4.66 m/uL (3.80-5.40); RDW 17.1 % (11.5-15.5); WBC 8.9 k/uL (3.8-10.6)
[2021-01-05 14:01] LABS: Bacteria,Urine Few /hpf; Mucus,Urine Rare /hpf; RBC,Urine 21 /hpf (0-5); Squamous Epithelial Cell,Urine 4 /hpf (0-4); WBC,Urine 72 /hpf (0-5)
[2021-01-05 14:04] LABS: ALT 9 U/L (4-34); AST 20 U/L (14-36); African American GFR (CKD) >90 (>60 ml/min/1.73 sqM); Albumin 3.7 g/dL (3.5-5.0); Alkaline Phosphatase 67 U/L (38-126); Anion Gap 8 mmol/L; Blood Urea Nitrogen 9 mg/dL (7-17); Carbon Dioxide 23 mmol/L (22-30); Chloride 109 mmol/L (98-107); Glucose 91 mg/dL (74-99); Lipase 452 U/L (23-300); Non-African American GFR(CKD) >90 (>60 ml/min/1.73 sqM); Potassium 4.1 mmol/L (3.5-5.1); Sodium 140 mmol/L (137-145); Total Bilirubin 0.3 mg/dL (0.2-1.3); Total Protein 7.1 g/dL (6.3-8.2)
--- NOTE | 2021-01-05 14:16 | CT ---
EXAMINATION TYPE: CT abdomen pelvis w con DATE OF EXAM: 01/05/2021 HISTORY: Left lower quadrant pain and tenderness. Known fistula. CT DLP: 978mGycm Automated Exposure Control for Dose Reduction was Utilized. CONTRAST: CT scan of the abdomen and pelvis is performed without oral but with IV Contrast, patient injected wi th 100 mL of Isovue 300. COMPARISON: CT abdomen and pelvis December 10, 2020 and older studies FINDINGS: LUNG BASES: [id number] bibasilar linear scarring and/or atelectasis slightly more prominent neli n prior. LIVER/GB: Prominent right hepatic lobe redemonstrated. PANCREAS: No significant abnormality is seen. SPLEEN: No significant abnormality is seen. ADRENALS: No significant abnormality is seen. KIDNEYS: Symmetric cortical medullary uptake and excretion without hydronephrosis seen bilaterally. BOWEL: Suboptimal evaluation of bowel without enteric contrast. Normal appearing appendix from cecum. No suspicious small bowel dilatation. Scattered colonic diverticula are redemonstrated prominent diverticulosis in the sigmoid colon in the pelvis were there is severe concentric wall thickening. Persistent and more severe moderate to sever e ill-defined fluid and fat stranding throughout the entire pelvis extending anteriorly on the curren t study. Blurring of fat planes with adjacent small bowel loops. Multiple fistula tracts may be prese nt. Probable thick walled fluid collection with internal air superior to bladder redemonstrated fairl y stable in size, intraluminal fluid component slightly less prominent on axial image 69. Probable se cond smaller thick walled abscess in the central pelvis axial image 71 with internal air and fluid. P ossible third abscess posterior left aspect image 72. Difficult to differentiate from unopacified bow el. UTERUS/ADNEXA: Uterus difficult to distinctly identify suspected surgically absent. LYMPH NODES: No greater than 1cm abdominal or pelvic lymph nodes are appreciated. OSSEOUS STRUCTURES: Moderate disc space narrowing and vacuum disc phenomenon in the lower lumbar leve ls. OTHER: No significant additional abnormality is seen. IMPRESSION: Worsening severe inflammatory change in the pelvis. Underlying neoplasm not excluded. Und erlying fistulous tracts are present. Persistent thick walled abscesses. Surgical exploration is like ly warranted.
[2021-01-05] MEDS ORDERED: NALOXONE 0.4 MG/ML 1 ML VIAL IV PRN (14:43)
[2021-01-05] MEDS ORDERED: PIPERACILLIN-TAZOBACTAM 3.375 GM in SODIUM CHLORIDE 0.9% 100 ML IVPB STA (14:43)
[2021-01-05] MEDS: SODIUM CHLORIDE 0.9% 1,000 ML IV SCH (15:13)
[2021-01-05] MEDS: HYDROmorphone 0.5 MG/0.5 ML SYRINGE IVP PRN ×2 (15:58→19:15)
[2021-01-06] MEDS: SODIUM CHLORIDE 0.9% 1,000 ML IV SCH (06:10)
[2021-01-06] MEDS: PIPERACILLIN-TAZOBACTAM 3.375 GM in SODIUM CHLORIDE 0.9% 100 ML IVPB SCH ×3 (07:16→23:36)
[2021-01-06] MEDS: PANTOPRAZOLE 40 MG/10 ML VIAL IV SCH (08:31)
--- NOTE | 2021-01-06 09:02 | P.GSCN ---
History of Present Illness Consult date: 01/06/21 History of present illness: CHIEF COMPLAINT: Complicated diverticulitis HISTORY OF PRESENT ILLNESS: The patient is a 60 year old female with multiple hospitalizations for diverticulitis in the past 4 months with recent colonoscopy 1 month ago, November 2020. She has complicated sigmoid diverticulitis with colovaginal fistula. From her last hospitalization, she was placed on PICC line and antibiotics to improve diverticulitis of the pelvis. Patient had been smoking and eating foods that has aggravated her diverticulitis despite education. She reports she quit smoking less than one week ago. She denies any further stool through her vagina. Her computed tomography scan is worse than 1 month ago. She has been on IV antibiotics. She presented to the hospital for increasing abdominal pain. General surgery is consulted for complex diverticulitis. PAST MEDICAL HISTORY: See list and reviewed PAST SURGICAL HISTORY: See list and reviewed MEDICATIONS: See list and reviewed ALLERGIES: See list and reviewed SOCIAL HISTORY: See list and reviewed FAMILY HISTORY: See list and reviewed REVIEW OF ORGAN SYSTEMS: CONSTITUTIONAL: No fevers or chills. EYES: Denies any trouble with vision. No glasses. HEENT: No difficulties with hearing. No nosebleeds. RESPIRATORY: Denies recent pneumonia. Past history of pulmonary embolism. Has tobacco abuse disorder. Has asthma and chronic obstructive pulmonary disease CARDIOVASCULAR: Denies any chest pain, palpitations, or recent heart attacks. Has hyperlipidemia. Has hypertensive heart disease. GASTROINTESTINAL: Denies fatty food intolerance. Has change in bowel habits and gas bloat. Has chronic diverticulitis including past pancreatitis. Last colonoscopy November 2020 without neoplasm. GENITOURINARY: Denies any blood in urine or increased urinary frequency. Has hysterectomy and tubal ligation. NEUROLOGICAL: Has neuropathy of the bilateral hands and feet. No seizure disorders or headaches. History of brain aneurysm. MUSCULOSKELETAL: Has back pain, stiffness or joint arthritis. Has fibrom yalgia. Has scoliosis. SKIN: No current skin cancer. No rash. PSYCHIATRIC: Has anxiety and depression. No suicidal thoughts. ENDOCRINE: Denies current thyroid disorders. Denies any blood sugar glucose intolerance. HEME/LYMPHATIC: Denies any lumps and bumps around the neck. Past deep venous thrombosis. ALLERGY/IMMUNOLOGY: No immunoglobulin therapy. No immune deficiencies. BREAST: Denies current breast lumps, pain or nipple discharge. PHYSICAL EXAM: VITALS: Reviewed CONSTITUTIONAL: Well developed and in no acute distress. Patient is nontoxic and without sepsis. EYES: Conjuctivae without sclera icterus. Pupils are equally round and reactive to light. Extraocular movements grossly intact. HEAD, EARS, NOSE, THROAT: Moist buccal mucosa. Head is atraumatic, normocephalic. Hears conversational speech. No nasal drainage. NECK: Supple. No JV distention. No thyroidomegaly. RESPIRATORY: Non-labored respirations and equal bilateral excursions. No gross wheezes. CARDIOVASCULAR: Regular rate and rhythm. Palpable 2+ radial pulses. ABDOMEN: Soft. Tender lower abdomen. No diffuse peritonitis. MUSCULOSKELETAL: Nail and fingers with good capillary refill. SKIN: Warm and well perfused with good skin turgor. NEUROLOGIC: Cranial nerves II through XII grossly intact. No focal or late ralizing signs. PSYCH: Appropriate affect. Alert and oriented to person, place and time. Displays appropriate insight. CLINCAL LABS: Reviewed. WBC within normal limits at 8.9. IMAGING: Independently reviewed CT of the abdomen and pelvis with multiple abscess pockets within the pelvis as well as moderate thickening of the sigmoid colon consistent with worsening diverticulitis from her prior computed tomography scan 1 month ago. No gross free air or pneumoperitoneum. This is my independent interpretation. RADIOLOGY: Report reviewed of CT of the abdomen and pelvis with persistent [id number] diverticulitis with multiple abscess within the pelvis. ASSESSMENT: 1. Complicated sigmoid diverticulitis with abscess 2. Failed outpatient management company diverticulitis 3. Tobacco abuse disorder 4. Noncompliance to medical surgical care PLAN: 1. She has persistent diverticulitis ongoing for more than 4 months without improvement. Patient has been noncompliant with dietary restrictions and tobacco abuse disorder. 2. Recommend open colectomy with ostomy creation. 3. Diet as tolerated for now. Past Medical History Past Medical History: Asthma, COPD, Fibromyalgia, Hyperlipidemia, Hypertension, Musculoskeletal Disorder, Osteoarthritis (OA), Pulmonary Embolus (PE) Additional Past Medical History / Comment(s): Pancreatitis, chronic pain, DDD, DJD, cervical/back pain/bilateral scoliosis, spondylosis, neuropathy bilat hands and feet, pulmonary embolism R lung, brain aneurysm being monitored - last 2019, diverticulosis. Recent CT scan shows mass in colon. History of Any Multi-Drug Resistant Organisms: None Reported Past Surgical History: Hysterectomy, Tubal Ligation Additional Past Surgical History / Comment(s): D&C, angiograms d/t cerebral aneurysm. Past Anesthesia/Blood Transfusion Reactions: No Reported Reaction, Motion Sickness Additional Past Anesthesia/Blood Transfusion Reaction / Comm: motion sick as a child Past Psychological History: Anxiety, Depression Additional Psychological History / Comment(s): Pt lives with her son and his fiancee. She has a cane but does not need to use it. She drives. Smoking Status: Former smoker Past Alcohol Use History: None Reported Additional Past Alcohol Use History / Comment(s): Pt started smoking in 1977, 1/2 ppd smoker, down to few cigarettes daily. She drank heavily in the past but has not drank alcohol since 2009. Past Drug Use History: Marijuana Additional Drug Use History / Comment(s): uses daily - Past Family History Mother Family Medical History: Cancer, Coronary Artery Disease (CAD) Additional Family Medical History / Comment(s): Mother had uterine cancer. Sister(s) Family Medical History: Cancer, Neurologic Disorder Additional Family Medical History / Comment(s): parkinsonism; uterine, lung cancer. Brother(s) Family Medical History: Cancer Additional Family Medical History / Comment(s): Pt had 2 brothers with cancer - 1 leukemia. Medications and Allergies Home Medications Medication Instructions Recorded Confirmed Type Piperacillin-Tazobactam [Zosyn] 3.375 gm IVPB Q8H #84 vial 12/15/20 01/05/21 Rx Allergies Allergy/AdvReac Type Severity Reaction Status Date / Time ibuprofen AdvReac Abdominal Verified 01/05/21 13:12 Pain Surgical - Exam Vital Signs Temp Pulse Resp BP Pulse Ox 99.1 F 93 18 117/74 95 01/05/21 12:39 01/05/21 12:39 01/05/21 12:39 01/05/21 12:39 01/05/21 12:39 Results - Labs 01/05/21 13:12 01/05/21 13:12 Abnormal Lab Results - Last 24 Hours (Table) 01/05/21 01/05/21 01/05/21 Range/Units 13:12 13:12 13:12 RDW 17.1 H (11.5-15.5) % Chloride 109 H (98-107) mmol/L Creatinine 0.48 L (0.52-1.04) mg/dL Lipase 452 H (23-300) U/L Urine RBC 21 H (0-5) /hpf Urine WBC 72 H (0-5) /hpf Urine Bacteria Few H (None) /hpf Urine Mucus Rare H (None) /hpf Microbiology - Last 24 Hours (Table) 01/05/21 13:12 Urine Culture - Preliminary Urine,Voided Diabetes panel 01/05/21 Range/Units 13:12 Sodium 140 (137-145) mmol/L Potassium 4.1 (3.5-5.1) mmol/L Chloride 109 H (98-107) mmol/L Carbon Dioxide 23 (22-30) mmol/L BUN 9 (7-17) mg/dL Creatinine 0.48 L (0.52-1.04) mg/dL Glucose 91 (74-99) mg/dL Calcium 9.0 (8.4-10.2) mg/dL AST 20 (14-36) U/L ALT 9 (4-34) U/L Alkaline Phosphatase 67 (38-126) U/L Total Protein 7.1 (6.3-8.2) g/dL Albumin 3.7 (3.5-5.0) g/dL Calcium panel 01/05/21 Range/Units 13:12 Calcium 9.0 (8.4-10.2) mg/dL Albumin 3.7 (3.5-5.0) g/dL Pituitary panel 01/05/21 Range/Units 13:12 Sodium 140 (137-145) mmol/L Potassium 4.1 (3.5-5.1) mmol/L Chloride 109 H (98-107) mmol/L Carbon Dioxide 23 (22-30) mmol/L BUN 9 (7-17) mg/dL Creatinine 0.48 L (0.52-1.04) mg/dL Glucose 91 (74-99) mg/dL Calcium 9.0 (8.4-10.2) mg/dL Adrenal panel 01/05/21 Range/Units 13:12 Sodium 140 (137-145) mmol/L Potassium 4.1 (3.5-5.1) mmol/L Chloride 109 H (98-107) mmol/L Carbon Dioxide 23 (22-30) mmol/L BUN 9 (7-17) mg/dL Creatinine 0.48 L (0.52-1.04) mg/dL Glucose 91 (74-99) mg/dL Calcium 9.0 (8.4-10.2) mg/dL Total Bilirubin 0.3 (0.2-1.3) mg/dL AST 20 (14-36) U/L ALT 9 (4-34) U/L Alkaline Phosphatase 67 (38-126) U/L Total Protein 7.1 (6.3-8.2) g/dL Albumin 3.7 (3.5-5.0) g/dL Assessment and Plan (1) Noncompliance Current Visit: Yes Status: Acute Code(s): Z91.19 - PATIENT'S NONCOMPLIANCE W OTH MEDICAL TREATMENT AND REGIMEN SNOMED Code(s): 5092957 (2) Tobacco abuse disorder Current Visit: Yes Status: Acute Code(s): Z72.0 - TOBACCO USE SNOMED Code(s): 519576733 (3) Abscess of sigmoid colon due to diverticulitis Current Visit: Yes Status: Acute Code(s): K57.20 - DVTRCLI OF LG INT W PERF ORATION AND ABSCESS W/O BLEEDING SNOMED Code(s): 2828747306500160 (4) Diverticulitis Current Visit: Yes Status: Acute Code(s): K57.92 - DVTRCLI OF INTEST, PART UNSP, W/O PERF OR ABSCESS W/O BLEED SNOMED Code(s): 761950826 (5) Colovaginal fistula Current Visit: No Status: Acute Code(s): N82.4 - OTHER FEMALE INTESTINAL- GENITAL TRACT FISTULAE SNOMED Code(s): 986499968
[2021-01-06] MEDS ORDERED: HYDROcodone/APAP 5-325MG 1 EACH TAB PO PRN (13:34)
--- NOTE | 2021-01-06 20:22 | CONS ---
CONSULTATION DATE OF SERVICE: 01/06/2021 REASON FOR CONSULTATION: Diverticulitis with an abscess. HISTORY OF PRESENT ILLNESS: The patient is a 60 -year-old female with past medical history significant for recurrent diverticulitis with abscess and colovesical fistula. She was recently admitted to this facility. At that point, the patient was treated with IV antibiotic therapy with a plan for calming down of the inflammation/infection before laparoscopic drainage of any abscess or collection of the fistula. The patient did well initially for 2 weeks. However, the last 2 days the patient started having more pain in the lower abdominal area. Patient described the pain to be more of a sharp in nature, mostly left lower quadrant area, intensity almost 7 to 8/10 and no radiation. The patient has been nauseated but no vomiting and denies any diarrhea. Patient denies having any frequency of urine and denies having any stool or urine coming through her urethra. With these symptoms, the patient was evaluated by the ER physician. On arrival to the ER, the patient did have a low-grade fever of 99.1. The patient did have a normal white count 8.9. Urine did show 32 WBC and large ascites. Cooley PCR was negative. Blood and urine culture has been obtained. The patient did have a CT of abdomen and pelvis which shows worsening severe inflammatory changes in the pelvis, underlying not excluded. Underlying fistulous tracts are present. Persistent thick wall abscess. The patient has been continued on Zosyn. General Surgery has seen the patient and is planning for open colectomy and ostomy creation. Infectious disease was consulted for management of antibiotic therapy. REVIEW OF SYSTEMS: Positive points have been mentioned in HPI. Rest of systems are negative. PAST MEDICAL HISTORY: Asthma, COPD, fibromyalgia, hypertension, hyperlipidemia, osteoarthritis, pulmonary embolism, pancreatitis and recurrent diverticulitis with colovesical fistula. PAST SURGICAL HISTORY: Hysterectomy, tubal ligation, D and C. SOCIAL HISTORY: Remote history of smoking. No drinking, does admit to marijuana use. FAMILY HISTORY: Mother with history of coronary artery disease and uterine cancer. Sister with a history of parkinsonism, uterine and lung cancer. ALLERGIES: IBUPROFEN. MEDICATIONS: The patient is currently on [place], Dilaudid, Narcan, Zofran, Protonix, Zosyn and IV fluid. PHYSICAL EXAMINATION: Blood pressure is 124/84 with a pulse of 81, temperature 98.2. She is 99% on room air. General description: The patient is a middle-aged female lying in bed in no distress. No tachypnea or accessory muscles of respiration use. HEENT: Examination shows no pallor or scleral icterus. Oral mucous membranes dry. NECK: Trachea central. No thyromegaly. LUNGS: Unlabored breathing, decreased intensity of breath sounds. No wheeze. HEART: S1, S2. Regular rate and rhythm. ABDOMEN: Soft, mildly tender. No guarding. No organomegaly. EXTREMITIES: No edema of the feet. SKIN: No rash or mass palpable. NEUROLOGICAL: Patient is awake, alert, oriented times three. Mood and affect normal. LABS: Hemoglobin is 12.8, white count 8.9, BUN of 9, creatinine 0.48. Urine is mildly positive. DIAGNOSTIC IMPRESSION AND PLAN: Patient with recurrent diverticulitis complicated with colovesical fistula failing outpatient antibiotic therapy. The patient will benefit from surgical drainage of this abscess, deep culture and possibly ostomy formation. PLAN: 1. We will keep the patient on Zosyn 3.375 g q.8 hours. 2. Await surgical drainage of the abscess and deep culture. 3. We will follow on clinical condition and culture to further adjust medication if needed. Thank you for this consultation. We will follow this patient with you. MMODL / IJN: [id number] /
[2021-01-06] MEDS: HYDROcodone/APAP 10-325MG 1 EACH TAB PO PRN (21:52)
--- NOTE | 2021-01-06 22:25 | P.HPIM ---
History of Present Illness H&P Date: 01/06/21 Chief Complaint: abdominal pain Kamryn Martin is a 60 yo F with PMH diverticulitis who presented to the ED with worsening abdominal pain. She was recently admitted approximately 2 weeks ago for diverticulitis with abscess and seen at that time by surgery and ID. She was treated with zosyn and had been discharged home on zosyn. Despite antibiotics she has continued to complain of fever, chills and abdominal pain that is now worsening. On presentation T 99, WBC 8.9k, CT showing worsening pericolonic abscess. Review of Systems All systems: negative Constitutional: Denies chills, Denies fever Eyes: denies blurred vision, denies pain Ears, nose, mouth and throat: Denies headache, Denies sore throat Cardiovascular: Denies chest pain, Denies shortness of breath Respiratory: Denies cough Gastrointestinal: Reports abdominal pain, Denies diarrhea, Denies nausea, Denies vomiting Genitourinary: Denies dysuria, Denies hematuria Musculoskeletal: Denies myalgias Integumentary: Denies pruritus, Denies rash Neurological: Denies numbness, Denies weakness Psychiatric: Denies anxiety, Denies depression Endocrine: Denies fatigue, Denies weight change Past Medical History Past Medical History: Asthma, COPD, Fibromyalgia, Hyperlipidemia, Hypertension, Musculoskeletal Disorder, Osteoarthritis (OA), Pulmonary Embolus (PE) Additional Past Medical History / Comment(s): Pancreatitis, chronic pain, DDD, DJD, cervical/back pain/bilateral scoliosis, spondylosis, neuropathy bilat hands and feet, pulmonary embolism R lung, brain aneurysm being monitored - last 2019, diverticulosis. Recent CT scan shows mass in colon. History of Any Multi-Drug Resistant Organisms: None Reported Past Surgical History: Hysterectomy, Tubal Ligation Additional Past Surgical History / Comment(s): D&C, angiograms d/t cerebral aneurysm. Past Anesthesia/Blood Transfusion Reactions: No Reported Reaction, Motion Sickness Additional Past Anesthesia/Blood Transfusion Reaction / Comment(s): motion sick as a child Past Psychological History: Anxiety, Depression Additional Psychological History / Comment(s): Pt lives with her son and his fiancee. She has a cane but does not need to use it. She drives. Smoking Status: Former smoker Past Alcohol Use History: None Reported Additional Past Alcohol Use History / Comment(s): Pt started smoking in 1977, 1/2 ppd smoker, down to few cigarettes daily. She drank heavily in the past but has not drank alcohol since 2009. Past Drug Use History: Marijuana Additional Drug Use History / Comment(s): uses daily - Past Family History Mother Family Medical History: Cancer, Coronary Artery Disease (CAD) Additional Family Medical History / Comment(s): Mother had uterine cancer. Sister(s) Family Medical History: Cancer, Neurologic Disorder Additional Family Medical History / Comment(s): parkinsonism; uterine, lung c ancer. Brother(s) Family Medical History: Cancer Additional Family Medical History / Comment(s): Pt had 2 brothers with cancer - 1 leukemia. Medications and Allergies Home Medications Medication Instructions Recorded Confirmed Type Piperacillin-Tazobactam [Zosyn] 3.375 gm IVPB Q8H #84 vial 12/15/20 01/05/21 Rx Allergies Allergy/AdvReac Type Severity Reaction Status Date / Time ibuprofen AdvReac Abdominal Verified 01/05/21 13:12 Pain Physical Exam Vitals: Vital Signs Temp Pulse Resp BP Pulse Ox 01/06/21 19:30 98.2 F 20 118/67 92 L 01/06/21 12:46 98.2 F 81 18 124/84 99 01/06/21 05:01 98.3 F 75 16 148/82 98 01/05/21 22:35 98.4 F 78 18 124/68 97 Intake and Output 01/06/21 01/06/21 01/06/21 06:59 14:59 22:59 Intake Total 850 900 Balance 850 900 Intake: Intake, IV Titration 850 900 Amount Piperacillin-Tazobactam 3 100 .375 gm In Sodium Chloride 0.9% 100 ml @ 25 mls/hr IVPB Q8HR [facility] Rx# :[id number] Sodium Chloride 0.9% 1, 750 900 000 ml @ 75 mls/hr IV . [id number] [facility] Rx#:[id number] General: well nourished, well developed, NAD. Vitals reviewed Eyes: PERRL, EOMI, conjunctiva normal HENT: normocephalic, mucus membranes moist Neck: supple, no JVD Lungs: normal respiratory effort, no wheezes or rales CV: Regular rate and rhythm, no murmur. Peripheral pulses 2+ Abdomen: soft, nondistended, no organomegaly. Generalized tenderness to palpation Lymph: no cervical or axillary LAD Skin: warm and dry. Neuro: A&Ox3, normal mood and affect Results CBC & Chem 7: 01/05/21 13:12 01/05/21 13:12 Labs: Microbiology - Last 24 Hours (Table) 01/05/21 13:12 Urine Culture - Final Urine,Voided 01/05/21 13:17 Blood Culture - Preliminary Blood No Growth after 24 hours 01/05/21 13:12 Blood Culture - Preliminary Blood No Growth after 24 hours Thrombosis Risk Factor Assmnt - Choose All That Apply Any of the Below Risk Factors Present?: Yes Each Factor Represents 1 point: Age 41-60 years, Obesity (BMI >25) Other Risk Factors: Yes Each Risk Factor Represents 3 Points: History of DVT/PE Thrombosis Risk Factor Assessment Total Risk Factor Score: 5 Thrombosis Risk Factor Assessment Level: High Risk Assessment and Plan (1) Abscess of sigmoid colon due to diverticulitis Current Visit: Yes Status: Acute Code(s): K57.20 - DVTRCLI OF LG INT W PERFORATION AND ABSCESS W/O BLEEDING SNOMED Code(s): 0402658763254862 (2) Diverticulitis Current Visit: Yes Status: Acute Code(s): K57.92 - DVTRCLI OF INTEST, PART UNSP, W/O PERF OR ABSCESS W/O BLEED SNOMED Code(s): 844344557 Plan: 1. Diverticulitis with diverticular abscess. Failed antibiotic therapy. Surgery following and recommending partial colectomy with ostomy creation. Continue with zosyn 2. GERD. Continue omeprazole
[2021-01-06] MEDS ORDERED: diazePAM 5 MG TAB PO PRN (22:36)
[2021-01-06] MEDS ORDERED: HALOPERIDOL LACTATE 5 MG/ML 1 ML VIAL IM PRN (22:37)
[2021-01-07] MEDS: SODIUM CHLORIDE 0.9% 1,000 ML IV SCH ×2 (01:48→05:05)
[2021-01-07] MEDS: HYDROcodone/APAP 10-325MG 1 EACH TAB PO PRN ×2 (05:04→20:08)
[2021-01-07] MEDS: PANTOPRAZOLE 40 MG/10 ML VIAL IV SCH (08:07)
[2021-01-07] MEDS: PIPERACILLIN-TAZOBACTAM 3.375 GM in SODIUM CHLORIDE 0.9% 100 ML IVPB SCH ×2 (08:07→16:04)
[2021-01-07] MEDS ORDERED: LORazepam 1 MG TAB PO PRN (13:59)
--- NOTE | 2021-01-07 13:59 | P.CN ---
Psychiatric Consult - . Consult date: 01/07/21 Consult:: 01/07/21 12:58 IDENTIFYING DATA: This patient is a 60 yo female with a hx of diverticulitis who currently lives with her daughter and son in a house and is . REASON FOR REFERRAL: Psychiatry was consulted for suicidal ideations HISTORY OF PRESENT ILLNESS: The patient presented to the hospital initially with complaints of acute diverticulitis and abdominal pain. she has had several admissions in the past for similar problems recently. She was apparently d/c from the hospital 3 weeks ago with a PICC line and on Zosyn. Pts nurse claims that patient tried to elope yesterday and was agitated when she found out that she was on suicide watch. Nurse claims the patient was apparently mad at her daughter who filled out a petition saying that she was sharing multiple threats of suicide over the phone and has a history of suicide attempts and depression. Patient apparently was supposed to have surgery but it is not urgent and was canceled by the surgeon. Patient was seen at the bedside with her one-to-one sitter and agreeable to speak to commercial lines underwriter. She appeared to have a depressed affect was tearful at times during the interview. She did appear to have poor impulse control and low frustration tolerance. She was fairly argumentative with the commercial lines underwriter about being on suicide precautions. She was minimizing her depression and claims that she has not been taking her medications for depression. She states that she "threw a fit" and got dressed and was about to leave however was stopped by security yesterday. She states that the nurses were not helping her with her pain medications and lied to her about giving it to her when they didn't. She states that her daughter is verbally abusive towards her at home and she drinks a lot. She claims that she has been dealing with depression "my whole life" and does not want to take any more medications. She claims that she is anxious about her surgery. She states that she is sleeping poorly at nighttime and having frequent awakenings. At this time patient denies any suicidal or homical ideations, intent or plan. Patient denies any auditory, visual hallucinations and denies any paranoia or delusions. Patients admits to using marijuana daily and denies any other recreational drug use or cigarettes. Meat Pickler called petitioner Madhuri [phone] who claims that mother has been over reacting and has been difficult to deal with. Admits to patients treating her poorly at home and that she has been depressed. She claims that patient has threatned to kill her self last night and has attempted several times in the past. PAST PSYCHIATRIC HISTORY: Patient has a a history of anxiety and depression. Claims that she was previously on Celexa in the past. Patient denies any previous psychiatric hospitalizations. Patient denies any psychiatric outpatient follow-up. Patient denies any history of suicide attempts in the past. PAST MEDICAL HISTORY: Asthma, COPD, Fibromyalgia, Hyperlipidemia, Hypertension, Musculoskeletal Disorder, Osteoarthritis (OA), Pulmonary Embolus (PE) Additional Past Medical History / Comment(s): Pancreatitis, chronic pain, DDD, DJD, cervical/back pain/bilateral scoliosis, spondylosis, neuropathy bilat hands and feet, pulmonary embolism R lung, brain aneurysm being monitored - last 2019, diverticulosis. Recent CT scan shows mass in colon. ALLERGIES: as per EMR. CHEMICAL DEPENDENCY HISTORY: as per HPI. FAMILY PSYCHIATRIC/SUBSTANCE USE HISTORY: She states that her brother has some form of mental illness. SOCIAL HISTORY: Patient was born and raised in [facility]. She states that she completed high school. 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 She states that she is . She claims that she currently lives with her son and daughter in a house. She is denying any legal history. MENTAL STATUS EXAM: General Appearance: Patient appears to be stated age is alert, argumentative and uncooperative. Patient appears to have fair hygiene and grooming wearing hospital gown with poor eye contact. Behavior: Patient is calmly lying in bed without any agitated behavior. Tearful at times. Argumentative. Speech: Patient's speech is fluent and nonpressured. Mood/Affect: Patient reports their mood is "depressed and anxious", affect is congruent Suicidality/Homicidality: Patient denies having any suicidal or homicidal ideation intent or plan. Perceptions: Patient denies any visual hallucinations and denies any auditory hallucinations Though content/process: Patient is minimizing her symptoms and has low frustration tolerance. Rambles. Memory and concentration: AOX3, grossly intact for the purposes of this session. Can spell "WORLD" backwards Judgment and insight: poor IMPRESSIONS: Major depressive disorder without psychotic features Anxiety disorder unspecified Cannabis use disorder PLAN: -At this time patient DOES meet criteria for inpatient psychiatric admission. -Would recommend the following medication changes/additions: Discussed different medication options with patient however she adamantly is minimizing her symptoms and refusing medications. -Continue 1:1 sitter for safety -Cannot leave AMA at this time. Patient will need a petition and certification if attempting to leave AMA. -Meat Pickler spoke with patient about substance abuse and the harmful effects on medical and mental health, patient verbally understood and agreed. -Communicated plan to patient's nurse -after speaking with patients daughter and evaluation, patient does meet criteria for inpatient psych hospitalization and will need to be transferred to the [facility] once patient is medically cleared. -Psychiatry will sign off at this time -Please contact with any questions. 01/07/21 13:44
--- NOTE | 2021-01-07 14:17 | PN ---
PROGRESS NOTE DATE OF SERVICE: 01/07/2021. REASON FOR FOLLOWUP: complicated diverticulitis with INTERVAL HISTORY: The patient is afebrile. The patient seems to be upset for not getting enough pain medication, and apparently the patient did have a sitter at in the bedside and got outside. The patient seems to be upset over the type of care. The patient denies having any headaches, denies any chest pain or shortness of breath. Abdominal pain no worsening though. No nausea. No vomiting. No diarrhea. PHYSICAL EXAMINATION: Blood pressure 158/80 with a pulse of 73, temperature 98. She is 95% on room air. General description: The patient is a middle-aged female up in the bed in no distress. Respiratory system: Unlabored breathing, decreased intensity of breath sounds. No wheeze. HEART: S1, S2. Regular rate and rhythm. ABDOMEN: Soft, no tenderness. No guarding. No rigidity. LABORATORY DATA: Blood cultures have been negative. No new labs have been done today. DIAGNOSTIC IMPRESSION AND PLAN: Patient with complicated diverticulitis with fistula abscess failing outpatient antibiotic therapy. Waiting for the culture and drainage of the abscess and possible colostomy. Patient is covered with Zosyn. That will be continued with based on the culture report. Continue with supportive care. MMODL / IJN: [id number] /
--- NOTE | 2021-01-07 17:53 | P.PN ---
Subjective Progress Note Date: 01/07/21 Kamryn Martin is a 60 yo F with PMH diverticulitis who presented to the ED with worsening abdominal pain. She was recently admitted approximately 2 weeks ago for diverticulitis with abscess and seen at that time by surgery and ID. She was treated with zosyn and had been discharged home on zosyn. Despite antibiotics she has continued to complain of fever, chills and abdominal pain that is now worsening. On presentation T 99, WBC 8.9k, CT showing worsening pericolonic abscess. 01/07/2021 per staff, daughter yesterday shared that patient was placing suicide threats over the phone to her and that her mom has a history of prior suicide attempts and depression. Patient's daughter petitioned her mom. Patient became upset attempted to leave AMA and required security assistance. Upon entering the room, patient was in shower. Patient stated that she was not receiving her pain medication. States prior to shift change, she was promised pain medication, never received it. The oncoming shift came on, stated it was charted as being given and she went without. Patient had multiple complaints about the nursing staff/care that she had received last night. Recommended/encouraged patient to talk with unit secretary. This morning, RN states patient refusing pain meds currently.Denies suicidal ideation or homicidal ideation. Patient very upset with her daughter- states her daughter was drunk on wine coolers. Appears anxious with impaired insight secondary to medical condition. Discussed with usman benton, psychiatry consulted. Maintained on IV antibiotics of Zosyn as per ID. Afebrile, preliminary blood cultures negative. Denies chest pain, palpitations or shortness of breath. Reports abdominal pain currently controlled. Objective - Vital Signs Vital signs: Vital Signs Temp 98.0 F 01/07/21 11:55 Pulse 70 01/07/21 11:55 Resp 14 01/07/21 11:55 BP 158/88 01/07/21 11:55 Pulse Ox 95 01/07/21 11:55 Intake & Output 01/06/21 01/07/21 01/07/21 18:59 06:59 18:59 Intake Total 900 100 360 Balance 900 100 360 Intake: Intake, IV Titration 900 Amount Sodium Chloride 0.9% 1, 900 000 ml @ 75 mls/hr IV . [id number] [facility] Rx#:[id number] Oral 100 360 Other: Voiding Method Toilet Toilet # Voids 2 # Bowel Movements 1 - Exam General: well nourished, well developed, standing up, walking in room .NAD. Vitals reviewed Eyes: PERRL, EOMI, conjunctiva normal. HENT: normocephalic, mucus membranes moist. Neck: supple, no JVD. Lungs: normal respiratory effort, no wheezes or rales CV: Regular rate and rhythm, no murmur. Peripheral pulses 2+ Abdomen: soft, nondistended, no organomegaly. Generalized tenderness to palpation Skin: warm and dry. Neuro: A&Ox3, normal mood and affect - Labs CBC & Chem 7: 01/05/21 13:12 01/05/21 13:12 Labs: Microbiology - Last 24 Hours (Table) 01/05/21 13:17 Blood Culture - Preliminary Blood No Growth after 48 hours 01/05/21 13:12 Blood Culture - Preliminary Blood No Growth after 48 hours 01/05/21 13:12 Urine Culture - Final Urine,Voided Assessment and Plan Assessment: Diverticulitis with diverticular abscess, failed outpatient antibiotic therapy, surgery pending Gastroesophageal reflux disease Anxiety disorder unspecified, anxious affect and impaired insight secondary to medical condition. Patient has been petitioned by daughter regarding suicidal threats; suicide precautions initiated,psychiatry consulted. Depression COPD, stable Fibromyalgia Hypertension hyperlipidemia History of PE Chronic pain syndrome History of alcohol abuse, none since 2009 Daily THC use Former nicotine dependence Plan: Continue on current medication regime ,monitoring and symptomatic treatment. Apparently daughter petitioned patient yesterday, per staff- stating her mom was stating suicide threats on the phone to her. Suicide precautions initiated including health safety manager. Psych consulted. Maintain antibiotic therapy and follow closely with surgery. Prognosis guarded given multiple complex medical issues. The impression and plan of care has been dictated as directed. : I performed a history and examination of this patient, discussed the same with the dictator. I agree with the dictator's note ,documented as a scribe. Any additional findings or plans will be noted.
--- NOTE | 2021-01-07 21:41 | P.PN ---
Subjective Progress Note Date: 01/07/21 CHIEF COMPLAINT: Complicated diverticulitis HISTORY OF PRESENT ILLNESS: The patient is a 60 year old female admitted for failed outpatient management for complicated diverticulitis ongoing for 4 months. She had been noncompliant with outpatient therapy including continued tobacco abuse disorder. Per discussion with nursing, patient is now on suicide watch. Patient reports that her daughter maliciously labelled her as suicidal. Patient reports that she was trying to leave the hospital AGAINST MEDICAL ADVICE as she was not receiving her pain medications. She reports blood in her stools. She reports lower abdominal pain. At this time, patient has a sitter. She is pending psychiatric assessment. REVIEW OF ORGAN SYSTEMS: Reports new blood in stools. No distant exertion. No chest pain. No fevers or chills. PHYSICAL EXAM: VITALS: Reviewed CONSTITUTIONAL: Well developed and in no acute distress. See sitting in bed. EYES: Conjuctivae without sclera icterus. Extraocular movements grossly intact. HEAD, EARS, NOSE, THROAT: Moist buccal mucosa. Head is atraumatic, normocephalic. Hears conversational speech. No nasal drainage. RESPIRATORY: Non-labored respirations and equal bilateral excursions. No gross wheezes. CARDIOVASCULAR: Regular rate and rhythm. Palpable 2+ radial pulses. ABDOMEN: Soft. No diffuse peritonitis. MUSCULOSKELETAL: Nail and fingers with good capillary refill. SKIN: Warm and well perfused with good skin turgor. NEUROLOGIC: Cranial nerves II through XII grossly intact. No focal or lateralizing signs. PSYCH: Appropriate affect. Alert and oriented to person, place and time. CLINCAL LABS: Reviewed. No new labs ASSESSMENT: 1. Complicated sigmoid diverticulitis with abscess 2. Failed outpatient management company diverticulitis 3. Tobacco abuse disorder 4. Noncompliance to medical surgical care 5. Suicidal ideation per nursing PLAN: 1. I had a long-standing discussion with her as conservative management has failed especially complicated by her noncompliance. 2. Options including open surgical resection and temporary colostomy was described with the severity of her pelvic infection. Patient at this time had declined open surgery. 3. Alternatively, second opinion for surgical options were also reviewed as well as transfer to tertiary care center for colorectal specialist was also discussed. 4. At this time, patient is pending psychiatric assessment to determine lucidity for clear decision making skills. 5. Surgery is deferred Objective - Vital Signs Vital signs: Vital Signs Temp 98.0 F 01/07/21 19:52 Pulse 74 01/07/21 19:52 Resp 16 01/07/21 19:52 BP 153/88 01/07/21 19:52 Pulse Ox 94 L 01/07/21 19:52 Intake & Output 01/07/21 01/07/21 01/08/21 06:59 18:59 06:59 Intake Total 100 360 Balance 100 360 Intake: Oral 100 360 Other: Voiding Method Toilet Toilet # Voids 2 1 # Bowel Movements 1 - Labs CBC & Chem 7: 01/05/21 13:12 01/05/21 13:12 Labs: Microbiology - Last 24 Hours (Table) 01/05/21 13:17 Blood Culture - Preliminary Blood No Growth after 48 hours 01/05/21 13:12 Blood Culture - Preliminary Blood No Growth after 48 hours 01/05/21 13:12 Urine Culture - Final Urine,Voided Assessment and Plan (1) Abscess of sigmoid colon due to diverticulitis Current Visit: Yes Status: Acute Code(s): K57.20 - DVTRCLI OF LG INT W PERFORATION AND ABSCESS W/O BLEEDING SNOMED Code(s): 3495113677397270 (2) Noncompliance Current Visit: Yes Status: Acute Code(s): Z91.19 - PATIENT'S NONCOMPLIANCE W OTH MEDICAL TREATMENT AND REGIMEN SNOMED Code(s): 5661427 (3) Tobacco abuse disorder Current Visit: Yes Status: Acute Code(s): Z72.0 - TOBACCO USE SNOMED Code(s): 558868945 (4) Diverticulitis Current Visit: Yes Status: Acute Code(s): K57.92 - DVTRCLI OF INTEST, PART UNSP, W/O PERF OR ABSCESS W/O BLEED SNOMED Code(s): 413009337 (5) Colovaginal fistula Current Visit: No Status: Acute Code(s): N82.4 - OTHER FEMALE INTESTINAL- GENITAL TRACT FISTULAE SNOMED Code(s): 934365564
[2021-01-08] MEDS: SODIUM CHLORIDE 0.9% 1,000 ML IV SCH ×2 (00:19→17:07)
[2021-01-08] MEDS: PIPERACILLIN-TAZOBACTAM 3.375 GM in SODIUM CHLORIDE 0.9% 100 ML IVPB SCH ×3 (00:19→17:09)
[2021-01-08] MEDS: HYDROcodone/APAP 10-325MG 1 EACH TAB PO PRN ×2 (04:12→19:04)
[2021-01-08 08:21] LABS: Anisocytosis Slight; HCT 38.9 % (34.0-46.0); HGB 12.2 gm/dL (11.4-16.0); Hypochromasia Slight; MCH 27.2 pg (25.0-35.0); MCHC 31.4 g/dL (31.0-37.0); MCV 86.8 fL (80.0-100.0); Mean Platelet Volume 6.4; Platelet Count 295 k/uL (150-450); RBC 4.48 m/uL (3.80-5.40); RDW 16.6 % (11.5-15.5); WBC 3.1 k/uL (3.8-10.6)
[2021-01-08] MEDS: HYDROmorphone 0.5 MG/0.5 ML SYRINGE IVP PRN (08:29)
[2021-01-08] MEDS: PANTOPRAZOLE 40 MG/10 ML VIAL IV SCH (08:29)
[2021-01-08] MEDS: ONDANSETRON 4 MG/2 ML VIAL IVP PRN (09:51)
[2021-01-08 12:54] LABS: Eosinophils # (M) 0.03 k/uL (0-0.7); Lymphocytes # (M) 1.71 k/uL (1.0-4.8); Monocytes # (M) 0.53 k/uL (0-1.0); Neutrophils # (M) 0.84 k/uL (1.3-7.7); Neutrophils % (M) 27 %; Nucleated Red Blood Cells 0 /100 WBC (0-0); Total Cells Counted 100
--- NOTE | 2021-01-08 13:27 | P.PN ---
Subjective Progress Note Date: 01/08/21 CHIEF COMPLAINT: Complicated diverticulitis HISTORY OF PRESENT ILLNESS: The patient is a 60 year old female admitted for failed outpatient management for complicated diverticulitis ongoing for 4 months. I personally had the opportunity to speak to the psychiatrist regarding the patient's mental health. Patient does demonstrate understanding of risks and benefits of surgery. Additionally, she has agreed to proceed with surgery. She reports blood from the rectum. Per nursing, patient reports intolerance to Dilaudid. She does tolerate Dillon. REVIEW OF ORGAN SYSTEMS: No fevers or chills. No dyspnea on exertion. PHYSICAL EXAM: VITALS: Reviewed CONSTITUTIONAL: Well developed and in no acute distress. Sitting in bed. EYES: Conjuctivae without sclera icterus. Extraocular movements grossly intact. HEAD, EARS, NOSE, THROAT: Moist buccal mucosa. Head is atraumatic, normocephalic. Hears conversational speech. No nasal drainage. RESPIRATORY: Non-labored respirations and equal bilateral excursions. No gross wheezes. CARDIOVASCULAR: Palpable 2+ radial pulses. ABDOMEN: No peritonitis MUSCULOSKELETAL: Nail and fingers with good capillary refill. SKIN: Warm and well perfused with good skin turgor. NEUROLOGIC: Cranial nerves II through XII grossly intact. No focal or lateralizing signs. PSYCH: Appropriate affect. Alert and oriented to person, place and time. CLINCAL LABS: Reviewed. WBC less than 5.0. ASSESSMENT: 1. Complicated sigmoid diverticulitis with abscess 2. Failed outpatient management company diverticulitis 3. Tobacco abuse disorder 4. Noncompliance to medical surgical care 5. Suicidal ideation PLAN: 1. Patient was seen and evaluated nursing bedside. Benefits and risks for surgery for open colectomy and Cummings's procedure and placement of drains were reviewed. Placement of Barton catheter including blood products and pain management were reviewed. All questions were addressed. 2. She is extremely high risk for surgical complications due to severe complicated diverticulitis of the pelvis 3. I discussed with the psychiatrist that after surgical management, patient may be transferred to inpatient psych pending further management. 4. Consent reviewed. Nothing by mouth after midnight. Objective - Vital Signs Vital signs: Vital Signs Temp 97.6 F 01/08/21 13:06 Pulse 64 01/08/21 13:06 Resp 16 01/08/21 13:06 BP 134/74 01/08/21 13:06 Pulse Ox 96 01/08/21 13:06 Intake & Output 01/07/21 01/08/21 01/08/21 18:59 06:59 18:59 Intake Total 360 700 Balance 360 700 Intake: Intake, IV Titration 700 Amount Piperacillin-Tazobactam 3 100 .375 gm In Sodium Chloride 0.9% 100 ml @ 25 mls/hr IVPB Q8HR [facility] Rx# :[id number] Sodium Chloride 0.9% 1, 600 000 ml @ 75 mls/hr IV . [id number] [facility] Rx#:[id number] Oral 360 Other: Voiding Method Toilet Toilet # Voids 1 - Labs CBC & Chem 7: 01/08/21 06:14 01/05/21 13:12 Labs: Abnormal Lab Results - Last 24 Hours (Table) 01/08/21 Range/Units 06:14 WBC 3.1 L (3.8-10.6) k/uL RDW 16.6 H (11.5-15.5) % Neutrophils # (Manual) 0.84 L (1.3-7.7) k/uL Microbiology - Last 24 Hours (Table) 01/05/21 13:17 Blood Culture - Preliminary Blood No Growth after 48 hours 01/05/21 13:12 Blood Culture - Preliminary Blood No Growth after 48 hours Assessment and Plan (1) Abscess of sigmoid colon due to diverticulitis Current Visit: Yes Status: Acute Code(s): K57.20 - DVTRCLI OF LG INT W PERFORATION AND ABSCESS W/O BLEEDING SNOMED Code(s): 1171947762745752 (2) Noncompliance Current Visit: Yes Status: Acute Code(s): Z91.19 - PATIENT'S NONCOMPLIANCE W OTH MEDICAL TREATMENT AND REGIMEN SNOMED Code(s): 0707250 (3) Tobacco abuse disorder Current Visit: Yes Status: Acute Code(s): Z72.0 - TOBACCO USE SNOMED Code(s): 238208889 (4) Diverticulitis Current Visit: Yes Status: Acute Code(s): K57.92 - DVTRCLI OF INTEST, PART UNSP, W/O PERF OR ABSCESS W/O BLEED SNOMED Code(s): 329753633 (5) Colovaginal fistula Current Visit: No Status: Acute Code(s): N82.4 - OTHER FEMALE INTESTINAL- GENITAL TRACT FISTULAE SNOMED Code(s): 957390537
[2021-01-08 13:44] LABS: African American GFR (CKD) 122.8 (60.0-200.0); Anion Gap 11.6 mmol/L (4.00-12.00); Calcium 8.4 mg/dL (8.7-10.3); Carbon Dioxide 24.4 mmol/L (21.6-31.8); Non-African American GFR(CKD) 105.9 (60.0-200.0); Potassium 3.4 mmol/L (3.5-5.5)
--- NOTE | 2021-01-08 14:00 | P.PN ---
Progress Note - Text Progress Note Date: 01/08/21 Interval History: Patient was seen today for psychiatric follow-up regarding her depression. Wr iter spoke with surgeon about her case briefly and her complicated condition and need for urgent surgey. Patient was seen afterwards with her one-to-one sitter at her side. Patient had very poor eye contact and did not want to engage with public relations writer in conversation. She was very guarded/concrete. She continues to endorse anxiety and depression. She appeared to have a depressed affect and appeared to be irritable as well and impulsive. She states that she had poor sleep last night. She continues to claim that she does not want or need any kind of medications. She claims that her daughter is a "drunk" and had other harsh words to say about her. She spoke about her need for surgery and claims that she wants to get it done. She was able to go over some of the risks and benefits of the surgery and appears to have capacity to accept surgery. At this time patient denies any current suicidal or homical ideations, intent or plan. Patient denies any auditory, visual hallucinations and denies any paranoia or delusions. Patient denies any side effects from the medications and has been compliant with meds. Mental Status Exam: General Appearance: Patient appears to be stated age is alert, argumentative and uncooperative. Patient appears to have fair hygiene and grooming wearing hospital gown with poor eye contact. Behavior: Patient is calmly lying in bed without any agitated behavior. irritable. Argumentative. Speech: Patient's speech is fluent and nonpressured. Mood/Affect: Patient reports their mood is "depressed and anxious", affect is congruent Suicidality/Homicidality: Patient denies having any suicidal or homicidal ideation intent or plan. Perceptions: Patient denies any visual hallucinations and denies any auditory hallucinations Though content/process: Patient is minimizing her symptoms and has low frustration tolerance. Rambles. [place]. Memory and concentration: AOX3, grossly intact for the purposes of this session. Judgment and insight: poor Assessment Major depressive disorder without psychotic features Anxiety disorder unspecified Cannabis use disorder Plan: -At this time patient DOES meet criteria for inpatient psychiatric admission once patient is cleared by surgery and has has her surgery completed and recovered. -At this time patient does have capacity to except surgery as she was able to go over the risks and benefits of the procedure versus not having the procedure. -Would recommend the following medication changes/additions: Discussed different medication options once again with patient however she adamantly is minimizing her symptoms and refusing medications. -Continue 1:1 sitter for safety -Cannot leave AMA at this time. Patient will need a petition and certification if attempting to leave AMA. -Packing Machine Can Feeder spoke with patient about substance abuse and the harmful effects on medical and mental health, patient verbally understood and agreed. -Communicated plan to patient's nurse -Psychiatry will follow along if needed by team and followed peripherally. -Please contact with any questions.
[2021-01-08] MEDS ORDERED: Potassium Replacement Protocol 1 EACH MISC MISCELLANE PRN ×2 (15:59→17:21)
[2021-01-08] MEDS ORDERED: Magnesium Replacement Protocol 1 EACH MISC MISCELLANE PRN (16:00)
--- NOTE | 2021-01-08 16:04 | P.PN ---
Subjective Progress Note Date: 01/08/21 Kamryn Martin is a 60 yo F with H diverticulitis who presented to the ED with worsening abdominal pain. She was recently admitted approximately 2 weeks ago for diverticulitis with abscess and seen at that time by surgery and ID. She was treated with zosyn and had been discharged home on zosyn. Despite antibiotics she has continued to complain of fever, chills and abdominal pain that is now worsening. On presentation T 99, WBC 8.9k, CT showing worsening pericolonic abscess. 01/07/2021 per staff, daughter yesterday shared that patient was placing suicide threats over the phone to her and that her mom has a history of prior suicide attempts and depression. Patient's daughter petitioned her mom. Patient became upset attempted to leave AMA and required security assistance. Upon entering the room, patient was in shower. Patient stated that she was not receiving her pain medication. States prior to shift change, she was promised pain medication, never received it. The oncoming shift came on, stated it was charted as being given and she went without. Patient had multiple complaints about the nursing staff/care that she had received last night. Recommended/encouraged patient to talk with unit manager [employer]. This morning, RN states patient refusing pain meds currently.Denies suicidal ideation or homicidal ideation. Patient very upset with her daughter- states her daughter was drunk on wine coolers. Appears anxious with impaired insight secondary to medical condition. Discussed with usman benton, psychiatry consulted. Maintained on IV antibiotics of Zosyn as per ID. Afebrile, preliminary blood cultures negative. Denies chest pain, palpitations or shortness of breath. Reports abdominal pain currently controlled. 01/08/2021 maintained on IV antibiotics.remains in suicide precautions, sitter at bedside. Reports nausea from Dilaudid. Offered alternatives, patient declined. Telemetry received Zofran. Discussed surgery with ostomy creation, ostomy care and patient appears to understand and wishes to proceed with surgery. Reports she can't sleep, offered medications, declined. Ativan offered, declined. Frustrated and agitated over suicide precautions/psychiatrist following.Labs pending. Objective - Vital Signs Vital signs: Vital Signs Temp 97.6 F 01/08/21 13:06 Pulse 64 01/08/21 13:06 Resp 16 01/08/21 13:06 BP 134/74 01/08/21 13:06 Pulse Ox 96 01/08/21 13:06 Intake & Output 01/07/21 01/08/21 01/08/21 18:59 06:59 18:59 Intake Total 360 700 Balance 360 700 Intake: Intake, IV Titration 700 Amount Piperacillin-Tazobactam 3 100 .375 gm In Sodium Chloride 0.9% 100 ml @ 25 mls/hr IVPB Q8HR [facility] Rx# :[id number] Sodium Chloride 0.9% 1, 600 000 ml @ 75 mls/hr IV . [id number] [facility] Rx#:[id number] Oral 360 Other: Voiding Method Toilet Toilet # Voids 1 - Exam General: Lying in bed .NAD. Vitals reviewed Eyes: PERRL, EOMI, conjunctiva normal. HENT: normocephalic, mucus membranes dry. Neck: supple, no JVD. Lungs: normal respiratory effort, no wheezes or rales CV: Regular rate and rhythm, no murmur. Peripheral pulses 2+ Abdomen: soft, nondistended, no organomegaly. Generalized tenderness to palpation Skin: warm and dry. Neuro: A&Ox3, normal mood and affect - Labs CBC & Chem 7: 01/08/21 06:14 01/08/21 06:14 Labs: Abnormal Lab Results - Last 24 Hours (Table) 01/08/21 01/08/21 Range/Units 06:14 06:14 WBC 3.1 L (3.8-10.6) k/uL RDW 16.6 H (11.5-15.5) % Neutrophils # (Manual) 0.84 L (1.3-7.7) k/uL Potassium 3.4 L (3.5-5.5) mmol/L BUN 8.0 L (9.0-27.0) mg/dL Creatinine 0.5 L (0.6-1.5) mg/dL Calcium 8.4 L (8.7-10.3) mg/dL Microbiology - Last 24 Hours (Table) 01/05/21 13:17 Blood Culture - Preliminary Blood No Growth after 48 hours 01/05/21 13:12 Blood Culture - Preliminary Blood No Growth after 48 hours Assessment and Plan Assessment: Diverticulitis with diverticular abscess, failed outpatient antibiotic therapy, surgery pending Gastroesophageal reflux disease Anxiety disorder unspecified, anxious affect and impaired insight secondary to medical condition. Petitioned by daughter regarding suicidal threats; suicide precautions initiated,psychiatry following. Depression COPD, stable Fibromyalgia Hypertension hyperlipidemia History of PE Chronic pain syndrome History of alcohol abuse, none since 2009 Daily THC use Former nicotine dependence Plan: Continue on current medication regime ,monitoring and symptomatic treatment.Labs pending. Maintain antibiotic therapy, surgery scheduled for tomorrow.NPO at [place]. Prognosis guarded given multiple complex medical issues. The impression and plan of care has been dictated as directed. : I performed a history and examination of this patient, discussed the same with the dictator. I agree with the dictator's note ,documented as a scribe. Any additional findings or plans will be noted.
[2021-01-08] MEDS: POTASSIUM CHLORIDE ER 20 MEQ TAB.ER PO SCH ×2 (17:34→19:13)
--- NOTE | 2021-01-08 19:19 | PN ---
PROGRESS NOTE DATE OF SERVICE: 01/08/2021. REASON FOR FOLLOWUP: Complicated diverticulitis. INTERVAL HISTORY: Patient is afebrile. The patient's NG has been put on hold because of mental status issues and concern for possible suicidal ideation as the patient was in a fight with her daughter yesterday. The patient denies having any chest pain. Has been complaining of feeling nauseated. Abdominal pain has been ( ). No vomiting or diarrhea has been reported. PHYSICAL EXAMINATION: Blood pressure 134/74 with a pulse of 57, temperature ( ), % on room air. General description is a middle-aged female lying in no distress. Respiratory system: Unlabored breathing, decreased breath sounds, no wheeze. Heart S1, S2. Regular rate and rhythm. Abdomen soft, mildly tender. No guarding or rigidity. Extremities: No edema of the feet. LABS: Hemoglobin is 12.3, white count of 3.1, BUN of 8, creatinine 0.5. DIAGNOSTIC IMPRESSION AND PLAN: Patient with complicated diverticulitis failing outpatient IV antibiotic therapy. Waiting for surgery. Continue Zosyn and monitor clinical course closely. MMODL / IJN: [id number] /
[2021-01-08] MEDS: MAGNESIUM SULFATE-D5W PMX 1 GM in DEXTROSE/WATER 1 100ML.BAG IVPB SCH (23:11)
[2021-01-09] MEDS ORDERED: POTASSIUM CHLORIDE ER 20 MEQ TAB.ER PO SCH
[2021-01-09] MEDS: MAGNESIUM SULFATE-D5W PMX 1 GM in DEXTROSE/WATER 1 100ML.BAG IVPB SCH (00:18)
[2021-01-09] MEDS: PIPERACILLIN-TAZOBACTAM 3.375 GM in SODIUM CHLORIDE 0.9% 100 ML IVPB SCH ×3 (01:19→18:39)
[2021-01-09] MEDS: SODIUM CHLORIDE 0.9% 1,000 ML IV SCH ×2 (01:25→15:42)
[2021-01-09] MEDS: HYDROcodone/APAP 10-325MG 1 EACH TAB PO PRN ×2 (02:56→11:18)
[2021-01-09] MEDS ORDERED: LIDOCAINE 1% (10MG/ML) FOR IV START INTRADERMA PRN (05:46)
[2021-01-09] MEDS ORDERED: ONDANSETRON 4 MG/2 ML VIAL IVP ONE (05:46)
[2021-01-09] MEDS ORDERED: MIDAZOLAM 2 MG/2 ML VIAL IV PRN (05:46)
[2021-01-09] MEDS ORDERED: DEXAMETHASONE SOD PHOSPHATE 4 MG/ML 1 ML VIAL IV ONE (05:46)
[2021-01-09] MEDS ORDERED: HYDROmorphone 0.5 MG/0.5 ML SYRINGE IVP PRN (05:46)
[2021-01-09] MEDS: LACTATED RINGERS 1,000 ML IV SCH (05:50)
[2021-01-09 07:51] LABS: ALT 8 U/L (4-34); AST 16 U/L (14-36); African American GFR (CKD) >90 (>60 ml/min/1.73 sqM); Albumin 3.3 g/dL (3.5-5.0); Alkaline Phosphatase 61 U/L (38-126); Anion Gap 5 mmol/L; Blood Urea Nitrogen 6 mg/dL (7-17); Calcium 8.9 mg/dL (8.4-10.2); Carbon Dioxide 28 mmol/L (22-30); Chloride 108 mmol/L (98-107); Globulin 3.2 g/dL; Glucose 90 mg/dL (74-99); Non-African American GFR(CKD) >90 (>60 ml/min/1.73 sqM); Potassium 4.1 mmol/L (3.5-5.1); Sodium 141 mmol/L (137-145); Total Bilirubin 0.2 mg/dL (0.2-1.3); Total Protein 6.5 g/dL (6.3-8.2)
[2021-01-09] MEDS: PANTOPRAZOLE 40 MG/10 ML VIAL IV SCH (07:55)
[2021-01-09 07:59] LABS: Anisocytosis Slight; HCT 40.9 % (34.0-46.0); MCH 27.4 pg (25.0-35.0); MCHC 31.7 g/dL (31.0-37.0); MCV 86.3 fL (80.0-100.0); Mean Platelet Volume 6.5; Platelet Count 354 k/uL (150-450); RBC 4.74 m/uL (3.80-5.40); RDW 16.8 % (11.5-15.5); WBC 3.1 k/uL (3.8-10.6)
[2021-01-09 08:08] LABS: Magnesium 2.3 mg/dL (1.6-2.3)
[2021-01-09 09:37] LABS: Basophils # (M) 0.06 k/uL (0-0.2); Eosinophils # (M) 0.03 k/uL (0-0.7); Lymphocytes # (M) 1.77 k/uL (1.0-4.8); Monocytes # (M) 0.53 k/uL (0-1.0); Neutrophils # (M) 0.71 k/uL (1.3-7.7); Neutrophils % (M) 23 %; Nucleated Red Blood Cells 0 /100 WBC (0-0); Total Cells Counted 100
--- NOTE | 2021-01-09 10:31 | P.PN ---
Subjective Progress Note Date: 01/09/21 Kamryn Martin is a 60 yo F with H diverticulitis who presented to the ED with worsening abdominal pain. She was recently admitted approximately 2 weeks ago for diverticulitis with abscess and seen at that time by surgery and ID. She was treated with zosyn and had been discharged home on zosyn. Despite antibiotics she has continued to complain of fever, chills and abdominal pain that is now worsening. On presentation T 99, WBC 8.9k, CT showing worsening pericolonic abscess. 01/07/2021 per staff, daughter yesterday shared that patient was placing suicide threats over the phone to her and that her mom has a history of prior suicide attempts and depression. Patient's daughter petitioned her mom. Patient became upset attempted to leave AMA and required security assistance. Upon entering the room, patient was in shower. Patient stated that she was not receiving her pain medication. States prior to shift change, she was promised pain medication, never received it. The oncoming shift came on, stated it was charted as being given and she went without. Patient had multiple complaints about the nursing staff/care that she had received last night. Recommended/encouraged patient to talk with community living instructor. This morning, RN states patient refusing pain meds currently.Denies suicidal ideation or homicidal ideation. Patient very upset with her daughter- states her daughter was drunk on wine coolers. Appears anxious with impaired insight secondary to medical condition. Discussed with usman benton, psychiatry consulted. Maintained on IV antibiotics of Zosyn as per ID. Afebrile, preliminary blood cultures negative. Denies chest pain, palpitations or shortness of breath. Reports abdominal pain currently controlled. 01/08/2021 maintained on IV antibiotics.remains in suicide precautions, sitter at bedside. Reports nausea from Dilaudid. Offered alternatives, patient declined. Telemetry received Zofran. Discussed surgery with ostomy creation, ostomy care and patient appears to understand and wishes to proceed with surgery. Reports she can't sleep, offered medications, declined. Ativan offered, declined. Frustrated and agitated over suicide precautions/psychiatrist following.Labs pending. 01/09/2021 NPO for surgery today maintained on IV fluids and antibiotics. Dilaudid discontinued with no further nausea and vomiting. Abdominal pain improved. Suicide precautions maintained/drug safety scientist at bedside. Afebrile, normal WBC .Patient calm, cooperative, pleasant. Objective - Vital Signs Vital signs: Vital Signs Temp 98.1 F 01/09/21 05:00 Pulse 63 01/09/21 05:00 Resp 16 01/09/21 05:00 BP 116/76 01/09/21 05:00 Pulse Ox 96 01/09/21 05:00 Intake & Output 01/08/21 01/09/21 01/09/21 18:59 06:59 18:59 Intake Total 600 1200 Balance 600 1200 Intake: Intake, IV Titration 600 1200 Amount Magnesium Sulfate-D5w Pmx 200 1 gm In Dextrose/Water 1 100ml.bag @ 100 mls/hr IVPB Q1H [facility] Rx#: [id number] Piperacillin-Tazobactam 3 100 .375 gm In Sodium Chloride 0.9% 100 ml @ 25 mls/hr IVPB Q8HR [facility] Rx# :[id number] Sodium Chloride 0.9% 1, 600 900 000 ml @ 75 mls/hr IV . [id number] [facility] Rx#:[id number] Other: Voiding Method Toilet Toilet # Voids 4 1 # Bowel Movements 2 1 - Exam General: Lying in bed .NAD. Vitals reviewed,pleasant, calm. Eyes: PERRL, EOMI, conjunctiva normal. HENT: normocephalic, mucus membranes dry(NPO). Neck: supple, no JVD. Lungs: normal respiratory effort, no wheezes or rales CV: Regular rate and rhythm, no murmur. Peripheral pulses 2+ Abdomen: soft, nondistended, no organomegaly. Generalized tenderness to palpation Skin: warm and dry. Neuro: A&Ox3, normal mood and affect - Labs CBC & Chem 7: 01/09/21 06:49 01/09/21 06:49 Labs: Abnormal Lab Results - Last 24 Hours (Table) 01/08/21 01/08/21 01/09/21 Range/Units 06:14 06:14 06:49 WBC (3.8-10.6) k/uL RDW (11.5-15.5) % Neutrophils # (Manual) 0.84 L (1.3-7.7) k/uL Potassium 3.4 L (3.5-5.5) mmol/L Chloride 108 H (98-107) mmol/L BUN 8.0 L 6 L (9.0-27.0) mg/dL Creatinine 0.5 L (0.6-1.5) mg/dL Calcium 8.4 L (8.7-10.3) mg/dL Albumin 3.3 L (3.5-5.0) g/dL 01/09/21 Range/Units 06:49 WBC 3.1 L (3.8-10.6) k/uL RDW 16.8 H (11.5-15.5) % Neutrophils # (Manual) 0.71 L (1.3-7.7) k/uL Potassium (3.5-5.5) mmol/L Chloride (98-107) mmol/L BUN (9.0-27.0) mg/dL Creatinine (0.6-1.5) mg/dL Calcium (8.7-10.3) mg/dL Albumin (3.5-5.0) g/dL Microbiology - Last 24 Hours (Table) 01/05/21 13:17 Blood Culture - Preliminary Blood No Growth after 72 hours 01/05/21 13:12 Blood Culture - Preliminary Blood No Growth after 72 hours Assessment and Plan Assessment: Diverticulitis with diverticular abscess, failed outpatient antibiotic therapy, surgery pending Gastroesophageal reflux disease Anxiety disorder unspecified, anxious affect and impaired insight secondary to medical condition. Petitioned by daughter regarding suicidal threats; suicide precautions initiated,psychiatry following. Depression COPD, stable Fibromyalgia Hypertension hyperlipidemia History of PE Chronic pain syndrome History of alcohol abuse, none since 2009 Daily THC use Former nicotine dependence Plan: Continue on current medication regime ,monitoring and symptomatic treatment.Continue on IV fluid hydration, antibiotic therapy. NPO surgery scheduled for today.maintain suicide precautions/drug safety scientist.Prognosis guarded given multiple complex medical issues. The impression and plan of care has been dictated as directed. : I performed a history and examination of this patient, discussed the same with the dictator. I agree with the dictator's note ,documented as a scribe. Any additional findings or plans will be noted.
--- NOTE | 2021-01-09 13:19 | P.PN ---
Subjective Progress Note Date: 01/09/21 CHIEF COMPLAINT: Complicated diverticulitis HISTORY OF PRESENT ILLNESS: The patient is a 60 year old female admitted for failed outpatient management for complicated diverticulitis ongoing for 4 months. Patient reevaluated forward and is for surgery. Discussion included open colectomy and Cummings's procedure reinforced. Patient was to proceed with surgery. REVIEW OF ORGAN SYSTEMS: No fevers or chills. No dyspnea on exertion. Reports blood in stools. PHYSICAL EXAM: VITALS: Reviewed CONSTITUTIONAL: Well developed and in no acute distress. EYES: Conjuctivae without sclera icterus. Extraocular movements grossly intact. Wears glasses. HEAD, EARS, NOSE, THROAT: Moist buccal mucosa. Head is atraumatic, normocephalic. Hears conversational speech. No nasal drainage. RESPIRATORY: Non-labored respirations and equal bilateral excursions. No gross wheezes. CARDIOVASCULAR: Palpable 2+ radial pulses. ABDOMEN: No peritonitis MUSCULOSKELETAL: Nail and fingers with good capillary refill. SKIN: Warm and well perfused with good skin turgor. NEUROLOGIC: Cranial nerves II through XII grossly intact. No focal or lateralizing signs. PSYCH: Appropriate affect. Alert and oriented to person, place and time. CLINCAL LABS: Reviewed. WBC less than 5.0. ASSESSMENT: 1. Complicated sigmoid diverticulitis with abscess 2. Failed outpatient management company diverticulitis 3. Tobacco abuse disorder 4. Noncompliance to medical surgical care 5. Suicidal ideation PLAN: 1. Benefits and risk of sigmoid colectomy described. We'll proceed. All questions addressed. Objective - Vital Signs Vital signs: Vital Signs Temp 97.9 F 01/09/21 12:19 Pulse 67 01/09/21 12:19 Resp 17 01/09/21 12:19 BP 120/75 01/09/21 12:19 Pulse Ox 96 01/09/21 12:19 Intake & Output 01/08/21 01/09/21 01/09/21 18:59 06:59 18:59 Intake Total 600 1200 Balance 600 1200 Intake: Intake, IV Titration 600 1200 Amount Magnesium Sulfate-D5w Pmx 200 1 gm In Dextrose/Water 1 100ml.bag @ 100 mls/hr IVPB Q1H [facility] Rx#: [id number] Piperacillin-Tazobactam 3 100 .375 gm In Sodium Chloride 0.9% 100 ml @ 25 mls/hr IVPB Q8HR [facility] Rx# :[id number] Sodium Chloride 0.9% 1, 600 900 000 ml @ 75 mls/hr IV . [id number] [facility] Rx#:[id number] Other: Voiding Method Toilet Toilet # Voids 4 1 # Bowel Movements 2 1 - Labs CBC & Chem 7: 01/09/21 06:49 01/09/21 06:49 Labs: Abnormal Lab Results - Last 24 Hours (Table) 01/08/21 01/09/21 01/09/21 Range/Units 06:14 06:49 06:49 WBC 3.1 L (3.8-10.6) k/uL RDW 16.8 H (11.5-15.5) % Neutrophils # (Manual) 0.71 L (1.3-7.7) k/uL Potassium 3.4 L (3.5-5.5) mmol/L Chloride 108 H (98-107) mmol/L BUN 8.0 L 6 L (9.0-27.0) mg/dL Creatinine 0.5 L (0.6-1.5) mg/dL Calcium 8.4 L (8.7-10.3) mg/dL Albumin 3.3 L (3.5-5.0) g/dL Microbiology - Last 24 Hours (Table) 01/05/21 13:17 Blood Culture - Preliminary Blood No Growth after 72 hours 01/05/21 13:12 Blood Culture - Preliminary Blood No Growth after 72 hours Assessment and Plan (1) Abscess of sigmoid colon due to diverticulitis Current Visit: Yes Status: Acute Code(s): K57.20 - DVTRCLI OF LG INT W PERFORATION AND ABSCESS W/O BLEEDING SNOMED Code(s): 4717830613703482 (2) Noncompliance Current Visit: Yes Status: Acute Code(s): Z91.19 - PATIENT'S NONCOMPLIANCE W OTH MEDICAL TREATMENT AND REGIMEN SNOMED Code(s): 4620185 (3) Tobacco abuse disorder Current Visit: Yes Status: Acute Code(s): Z72.0 - TOBACCO USE SNOMED Code(s): 986767185 (4) Diverticulitis Current Visit: Yes Status: Acute Code(s): K57.92 - DVTRCLI OF INTEST, PART UNSP, W/O PERF OR ABSCESS W/O BLEED SNOMED Code(s): 976315350 (5) Colovaginal fistula Current Visit: No Status: Acute Code(s): N82.4 - OTHER FEMALE INTESTINAL- GENITAL TRACT FISTULAE SNOMED Code(s): 773368008
[2021-01-09] MEDS ORDERED: HEPARIN SODIUM,PORCINE/PF 5,000 UNIT/0.5 ML SYRINGE SQ PRN (15:00)
[2021-01-09] MEDS ORDERED: GABAPENTIN 300 MG CAP PO PRN (15:00)
[2021-01-09] MEDS ORDERED: metroNIDAZOLE-NS PMX 500 MG in SALINE 1 100ML.BAG IVPB PRN (15:00)
[2021-01-09] MEDS ORDERED: ACETAMINOPHEN TAB 500 MG TAB PO PRN (15:00)
[2021-01-09] MEDS ORDERED: IV FLUID CONTINUATION 1,000 ML IV ONE (15:26)
[2021-01-09] MEDS: ONDANSETRON 4 MG/2 ML VIAL IVP PRN (15:26)
[2021-01-09] MEDS ORDERED: MIDAZOLAM 2 MG/2 ML VIAL IVP ONE (15:47)
[2021-01-09] MEDS ORDERED: fentaNYL (PF) 50 MCG/ML 2 ML AMP IVP ONE (15:48)
[2021-01-09] MEDS ORDERED: fentaNYL (PF) 50 MCG/ML 2 ML AMP ONE (16:12)
[2021-01-09] MEDS ORDERED: ePHEDrine SULFATE/0.9% NACL/PF 50 MG/5 ML SYRINGE IV ONE (16:12)
[2021-01-09] MEDS ORDERED: HYDROmorphone (PF) 1 MG/ML ONE (16:12)
[2021-01-09] MEDS ORDERED: GLYCOPYRROLATE 0.2 MG/ML 2 ML VIAL ONE (16:12)
[2021-01-09] MEDS ORDERED: NEOSTIGMINE 1 MG/ML 10 ML VIAL ONE (16:12)
[2021-01-09] MEDS ORDERED: PHENYLEPHRINE-0.9% NACL SYG 1,000 MCG/10 ML SYRINGE ONE (16:12)
[2021-01-09] MEDS ORDERED: WATER FOR INJECTION, STERILE 10 ML VIAL IV ONE (16:12)
[2021-01-09] MEDS ORDERED: ROCURONIUM 10 MG/ML (5 ML VIAL) IV ONE (16:12)
[2021-01-09] MEDS ORDERED: SUCCINYLCHOLINE CHLORIDE 100 MG/5 ML SYR IV ONE (16:12)
[2021-01-09] MEDS ORDERED: PROPOFOL 10 MG/ML 20 ML VIAL IV ONE (16:12)
[2021-01-09] MEDS ORDERED: LIDOCAINE 1% INJ 10MG/ML (20 ML MDV) ONE (16:12)
[2021-01-09] MEDS ORDERED: HEPARIN SODIUM,PORCINE 5,000 UNIT/ML 1 ML VIAL ONE (16:12)
[2021-01-09] MEDS ORDERED: NALOXONE 0.4 MG/ML 1 ML VIAL IV PRN (16:53)
[2021-01-09] MEDS ORDERED: LACTATED RINGERS 1,000 ML IV ONE (16:57)
--- NOTE | 2021-01-09 16:57 | P.ANPRN ---
Procedure Note - Anesthesia - Epidural/Spinal Epidural Time Out Performed: Yes Date of Procedure: 01/09/21 Procedure Start Time: 15:47 Procedure Stop Time: 16:02 Location of Patient: PreOp Indication: Acute Post-Operative Pain Sedation Type: Sedate with meaningful contact maintained Preparation: Sterile Dressing Position: Sitting Catheter: Indwelling Needle Guage: 18 Injectate: Test Dose Lidocaine1.5% w/1:200,000 epi (3cc) Blood Aspirated: No Pain Paresthesia on Injection Noted: No Events: Uneventful and Well Tolerated
--- NOTE | 2021-01-09 16:59 | PN ---
PROGRESS NOTE DATE OF SERVICE: 01/09/2021 REASON FOR FOLLOWUP: Complicated diverticulitis. INTERVAL HISTORY: Patient is afebrile. The patient is breathing comfortably. The patient denies having any chest pain, shortness of breath or cough. Abdominal pain is currently controlled. No nausea, vomiting or diarrhea. PHYSICAL EXAMINATION: Blood pressure is 120/75 with a pulse of 67, temperature 97.9. She is 96% on room air. General description is a middle-aged female lying in no distress. Respiratory system: Unlabored breathing, clear to auscultation anteriorly. Heart S1, S2. Regular rate and rhythm. Abdomen is soft, no guarding or rigidity. LABS: Hemoglobin is 13.1, white count 3.1, BUN of 6, creatinine 0.55. DIAGNOSTIC IMPRESSION AND PLAN: Patient with complicated diverticulitis abscess. Waiting for surgical drainage. Continue Zosyn and monitor clinical course closely. MMODL / IJN: [id number] /
--- NOTE | 2021-01-09 18:44 | P.OP ---
Date of Procedure: 01/09/21 Description of Procedure: SURGEON: PHIL BERGMAN MD PREOPERATIVE DIAGNOSES: 1. Sigmoid diverticulitis with abscess and colovesical fistula 2. Failed outpatient antibiotic management 3. Tobacco use disorder 4. Chronic obstructive pulmonary disease 5. Fibromyalgia 6. Hyperlipidemia 7. History of pulmonary embolism 8. Neuropathy 9. History of brain aneurysm 10. History of pancreatitis 11. Depressive disorder 12. Recent suicidal ideation POSTOPERATIVE DIAGNOSES: 1. Sigmoid diverticulitis with abscess and colovesical fistula 2. Failed outpatient antibiotic management 3. Tobacco use disorder 4. Chronic obstructive pulmonary disease 5. Fibromyalgia 6. Hyperlipidemia 7. History of pulmonary embolism 8. Neuropathy 9. History of brain aneurysm 10. History of pancreatitis 11. Depressive disorder 12. Recent suicidal ideation Anesthesia: GETA, epidural Estimated Blood Loss (ml): 50 Pathology: (Aerobic and anaerobic culture) Condition: stable Disposition: floor COMPLICATIONS: None. OPERATION: 1. Descending colostomy creation with devitalized rectum, Cummings's procedure 2. Application of wound VAC, Prevena 20-cm Operative Findings: 1. Frozen pelvis of sigmoid colon to bladder without tyrone abscess 2. Aerobic and anaerobic cultures obtain from peritoneal fluid 3. Diverting descending colostomy performed 4. Moderately redundant sigmoid colon allowing sigmoid resection and descending colostomy creation 5. Rectal stump tagged using 2-0 Prolene 6. Wound VAC placed along the mid abdomen to minimize risk of surgical site infection INDICATIONS: The patient is a 60-year-old female who failed outpatient management for complicated sigmoid diverticulitis with pelvic abscess and colovesical fistula. Benefits and risks of colectomy and ostomy creation was described. Patient agreed to proceed with surgery. Informed consent was obta ined. DESCRIPTION: Patient was brought to the operating room after an epidural had been placed. She is on scheduled IV antibiotics. The patient was placed in supine position whereby general induction was performed. Abdomen had been prepped and draped in the standard sterile fashion with placement of nasogastric tube and Barton catheter was placed. Ioban draping was also placed to minimize any contamination to the skin. Next, using #10 blade, the abdomen was entered along the midline whereby an incision was made just above the umbilicus down to the pubis. The peritoneum was entered. Next, Buckwalter retractor was placed. The small bowel was toweled off. The descending colon was also mobilized along the white line of Toldt. The sigmoid colon was mobilized along the medial and lateral attachments with care to avoid any injury to the ureters along the usual anatomical landmarks. No overt pelvic abscess was identified. Dense concrete-like adhesions involving the sigmoid colon to the bladder was identified. Despite attempted dissection, the tissue was friable. Proximal to the inflammatory changes of the sigmoid colon, a window was created along the sigmoid mesentery using Enseal and cautery. The colon was divided using 60-mm purple staple load. Aerobic and anaerobic cultures were taken of the dense adhesions. Hemostasis was excellent throughout the case. Minimal contamination occurred throughout the case. The distal sigmoid colon was tagged with 2-0 Prolene. The descending colon was prepared for maturation of a colostomy. Next, the rest of the colon was mobilized down to the rectum. Next, attention was brought to delivering and creating the descending colostomy. A point along the abdominal wall and rectus muscle was selected for his colostomy. Cautery was taken across in tangential manner to create the skin defect of approximately quarter-size along the left lower abdomen. The fat of the skin was mobilized using a small rich. The rectus muscle was identified and scored with a cruciate scoring of electro- Bovie cautery. Next, using a muscle-splitting technique with a hemostat, the peritoneum was entered. The peritoneum was widened such that 2 fingerbreadths could easily pass for delivering and evaginating the descending portion of the colon through the skin. The midline incision was closed using double-stranded 0 PDS. Next, the subcutaneous tissue was copiously irrigated with normal saline and dilute hydrogen peroxide. About the umbilicus interrupted 3-0 Vicryl dermal sutures were placed as to avoid any shira around the umbilicus. For the rest of the incision, interrupted dermal sutures of 3-0 Vicryl were placed. A Prevena 20-cm wound VAC was applied along the midline. The midline incision was covered and attention was brought to maturation of the colostomy. The staple edge was divided and removed. Next quadrant sutures at 12 o'clock, 3 o'clock, 6 o'clock, and 9 o'clock position was made using serosa, mucosal and dermal bites using 2-0 Vicryl. Interrupted 3-0 Vicryl was placed in between all quadrants sutures to completely mature the ostomy. Hemostasis was checked. A Coloplast was then placed. All incisions and hemostasis was checked. At the end of the procedure, needle, sponge, and instrument count had been verified correct by surgical aides teacher.
[2021-01-09] MEDS ORDERED: HYDROmorphone 1 MG/ML 1 ML SYRINGE IVP PRN (19:01)
[2021-01-09] MEDS ORDERED: SODIUM CHLORIDE 0.9% 1,000 ML IV ONE (19:30)
[2021-01-09] MEDS: HEPARIN SODIUM,PORCINE/PF 5,000 UNIT/0.5 ML SYRINGE SQ SCH (21:40)
[2021-01-09] MEDS: ALVIMOPAN 12 MG CAPSULE PO SCH (21:55)
[2021-01-10] MEDS: PIPERACILLIN-TAZOBACTAM 3.375 GM in SODIUM CHLORIDE 0.9% 100 ML IVPB SCH ×3 (01:19→17:35)
[2021-01-10] MEDS: SODIUM CHLORIDE 0.9% 1,000 ML IV SCH ×2 (05:35→17:34)
[2021-01-10] MEDS: LACTATED RINGERS 1,000 ML IV SCH (05:37)
[2021-01-10 06:19] LABS: Anisocytosis Slight; Basophils % (A) 0 %; Eosinophils % (A) 0 %; HCT 40.7 % (34.0-46.0); HGB 13.3 gm/dL (11.4-16.0); Lymphocytes # (A) 1.7 k/uL (1.0-4.8); Lymphocytes % (A) 37 %; MCH 28.1 pg (25.0-35.0); MCHC 32.6 g/dL (31.0-37.0); MCV 86.3 fL (80.0-100.0); Mean Platelet Volume 6.3; Monocytes # (A) 0.4 k/uL (0-1.0); Monocytes % (A) 10 %; Neutrophils # (A) 2.2 k/uL (1.3-7.7); Neutrophils % (A) 49 %; Platelet Count 335 k/uL (150-450); RBC 4.72 m/uL (3.80-5.40); RDW 16.4 % (11.5-15.5); WBC 4.5 k/uL (3.8-10.6)
[2021-01-10 06:37] LABS: African American GFR (CKD) >90 (>60 ml/min/1.73 sqM); Anion Gap 4 mmol/L; Blood Urea Nitrogen 4 mg/dL (7-17); Calcium 8.7 mg/dL (8.4-10.2); Carbon Dioxide 30 mmol/L (22-30); Chloride 107 mmol/L (98-107); Glucose 97 mg/dL (74-99); Non-African American GFR(CKD) >90 (>60 ml/min/1.73 sqM); Potassium 4.2 mmol/L (3.5-5.1); Sodium 141 mmol/L (137-145)
[2021-01-10] MEDS: ALVIMOPAN 12 MG CAPSULE PO SCH (08:27)
[2021-01-10] MEDS: PANTOPRAZOLE 40 MG/10 ML VIAL IV SCH (08:27)
[2021-01-10] MEDS: HEPARIN SODIUM,PORCINE/PF 5,000 UNIT/0.5 ML SYRINGE SQ SCH ×2 (08:28→19:57)
--- NOTE | 2021-01-10 09:57 | P.PN ---
Progress Note - Text Date: 01/10/2021 Time: The patient is status post, sigmoid colectomy, postoperative day number 1 The patient has no complaints of nausea vomiting or headache. The patient does not complain of any lower extremity numbness or weakness. The epidural is running at 10 mL per hour. VAS 3-4-10. The epidural will be maintained and adjusted as needed.
--- NOTE | 2021-01-10 13:30 | P.PN ---
Subjective Progress Note Date: 01/10/21 CHIEF COMPLAINT: Complicated diverticulitis HISTORY OF PRESENT ILLNESS: The patient is a 60 year old female status post diverting left colostomy for complicated pelvic diverticulitis. Pain is well controlled with epidural. She is tolerating liquid diet. Findings of surgery reviewed without active abscess but moderate inflammation. Strict tobacco nicotine cessation described for optimal recovery. REVIEW OF ORGAN SYSTEMS: No fevers or chills. No dyspnea on exertion. PHYSICAL EXAM: VITALS: Reviewed CONSTITUTIONAL: Well developed and in no acute distress. EYES: Conjuctivae without sclera icterus. Extraocular movements grossly intact. Wears glasses. HEAD, EARS, NOSE, THROAT: Moist buccal mucosa. Head is atraumatic, normocephalic. Hears conversational speech. No nasal drainage. RESPIRATORY: Non-labored respirations and equal bilateral excursions. No gross wheezes. CARDIOVASCULAR: Palpable 2+ radial pulses. ABDOMEN: Incisions clean dry and intact MUSCULOSKELETAL: Nail and fingers with good capillary refill. SKIN: Warm and well perfused with good skin turgor. NEUROLOGIC: Cranial nerves II through XII grossly intact. No focal or lateralizing signs. PSYCH: Appropriate affect. Alert and oriented to person, place and time. KOHLI: Clear CLINCAL LABS: Reviewed. WBC normal. ASSESSMENT: 1. Complicated sigmoid diverticulitis with abscess 2. Failed outpatient management 3. Tobacco cessation and counseling over 3 minutes PLAN: 1. Continue IV antibiotics 2. Await cultures for adjustment of antibiotics 3. Ostomy nurse education 4. Overall, good prognosis for recovery with strict tobacco cessation. 5. Advance diet following functioning ostomy. 6. Continue epidural Objective - Vital Signs Vital signs: Vital Signs Temp 98.9 F 01/10/21 11:33 Pulse 63 01/10/21 11:33 Resp 18 01/10/21 11:33 BP 159/80 01/10/21 11:33 Pulse Ox 96 01/10/21 11:33 Intake & Output 01/09/21 01/10/21 01/10/21 18:59 06:59 18:59 Intake Total 1950 200 Output Total 450 1400 Balance 1500 -1200 Intake: IV 1950 200 Output: Urine 400 1400 Estimated Blood Loss 50 Other: Voiding Method Toilet Indwelling Catheter Indwelling Catheter # Voids 2 # Bowel Movements 1 - Labs CBC & Chem 7: 01/10/21 05:52 01/10/21 05:52 Labs: Abnormal Lab Results - Last 24 Hours (Table) 01/10/21 01/10/21 Range/Units 05:52 05:52 RDW 16.4 H (11.5-15.5) % BUN 4 L (7-17) mg/dL Microbiology - Last 24 Hours (Table) 01/09/21 17:25 Gram Stain - Preliminary Other - Other Wound Culture - Preliminary 01/09/21 17:25 Gram Stain - Preliminary Other - Other Wound Culture - Preliminary 01/09/21 17:25 Anaerobic Culture - Preliminary Other - Other 01/09/21 17:25 Anaerobic Culture - Preliminary Other - Other 01/05/21 13:12 Blood Culture - Preliminary Blood No Growth after 96 hours 01/05/21 13:17 Blood Culture - Preliminary Blood No Growth after 96 hours Assessment and Plan (1) Abscess of sigmoid colon due to diverticulitis Current Visit: Yes Status: Acute Code(s): K57.20 - DVTRCLI OF LG INT W PERFORATION AND ABSCESS W/O BLEEDING SNOMED Code(s): 2470288682611253 (2) Noncompliance Current Visit: Yes Status: Acute Code(s): Z91.19 - PATIENT'S NONCOMPLIANCE W OTH MEDICAL TREATMENT AND REGIMEN SNOMED Code(s): 5636204 (3) Tobacco abuse disorder Current Visit: Yes Status: Acute Code(s): Z72.0 - TOBACCO USE SNOMED Code(s): 362244246 (4) Diverticulitis Current Visit: Yes Status: Acute Code(s): K57.92 - DVTRCLI OF INTEST, PART UNSP, W/O PERF OR ABSCESS W/O BLEED SNOMED Code(s): 986934020 (5) Colovaginal fistula Current Visit: No Status: Acute Code(s): N82.4 - OTHER FEMALE INTESTINAL- GENITAL TRACT FISTULAE SNOMED Code(s): 374441323
--- NOTE | 2021-01-10 16:08 | PN ---
PROGRESS NOTE DATE OF SERVICE: 01/10/2021 REASON FOR FOLLOWUP: Diverticulitis with abscess, colovesical fistula. INTERVAL HISTORY: Patient was taken to the OR and the patient is status post laparotomy and did have a diverting colostomy on admission. Patient tolerated the procedure, complaining mostly of incisional pain. Denies any chest pain, shortness of breath or cough. No vomiting. PHYSICAL EXAMINATION: Blood pressure 159/80 with a pulse of 60, temperature 98.9. She is 96% on 2 L nasal cannula. General description is a middle-aged female lying in bed in no distress. Respiratory system: Unlabored breathing, clear to auscultation anteriorly. Heart S1, S2. Regular rate and rhythm. Abdomen soft, mildly tender. No guarding or rigidity. Extremities: No edema of the feet. LABS: Hemoglobin 13.1, white count 4.5, BUN of 4, creatinine 0.57. Abdominal culture is pending. DIAGNOSTIC IMPRESSION AND PLAN: Patient with complicated diverticulitis status post laparotomy and diverting colostomy. Abdominal cultures pending. Patient is covered with Zosyn, to continue and monitor clinical course closely. MMODL / IJN: [id number] /
[2021-01-10] MEDS: ROPIVACAINE 250 MG, fentaNYL (PF) 1,250 MCG in SODIUM CHLORIDE 0.9% 175 ML EPIDURAL PRN (20:51)
[2021-01-11] MEDS: PIPERACILLIN-TAZOBACTAM 3.375 GM in SODIUM CHLORIDE 0.9% 100 ML IVPB SCH ×4 (02:09→23:32)
--- NOTE | 2021-01-11 02:17 | PN ---
PROGRESS NOTE DATE OF SERVICE: 01/10/2021 I am covering for Dr. Berg. This 60-year-old woman who was admitted with diverticular abscess, underwent descending colostomy creation and frozen pelvis was also noted without any tyrone abscess. The patient is being closely monitored at this time and Dr. Leo and Dr. Coreas are following the patient closely. Colovaginal fistula was also noted. Patient is on broad-spectrum IV antibiotics. Cultures negative so far. PAST MEDICAL HISTORY: Reviewed. REVIEW OF SYSTEMS: CARDIOVASCULAR No angina or palpitations. RESPIRATORY As mentioned earlier. GI As mentioned earlier. As mentioned earlier. NERVOUS No numbness or weakness. CURRENT MEDICATIONS: Reviewed include [place], Haldol, heparin, Dilaudid, lactate Ringer. Doses reviewed. PHYSICAL EXAMINATION: Patient alert and oriented x2. Pulse 61. pressure 160/74, respiration 18, temperature 98.4, pulse ox 94% on 2 L. HEENT: Conjunctivae normal. Oral mucosa moist. NECK: No jugular venous distention. No lymph node enlargement. CARDIOVASCULAR: S1, S2, muffled. No S3, no S4, RESPIRATORY: Diminished breath sounds at the bases. A few scattered rhonchi. ABDOMEN: Soft, status post surgery. LEGS: No edema, no swelling. NERVOUS SYSTEM: No focal deficits. LABS: WBC 4.5. Other labs are noted. Sodium 141, BUN is 4. ASSESSMENT: 1. Acute diverticulitis abscess with colovesical fistula, status post descending colostomy creation. 2. Frozen pelvis of the sigmoid colon to bladder without any tyrone abscess visualized during the surgery. 3. Hypokalemia. 4. History of asthma, chronic obstructive pulmonary disease. 5. Fibromyalgia. 6. Hypertension. 7. Hyperlipidemia. 8. History of DJD. 9. History of pulmonary embolism. 10.History of pancreatitis. 11.History of chronic pain syndrome. 12.History of bilateral scoliosis. 13.History of diverticulosis. 14.History hysterectomy. 15.History of anxiety, depression. 16.Remote history of nicotine dependence. 17.FULL CODE. RECOMMENDATIONS AND DISCUSSION: In this 60-year-old woman who presented with multiple complex medical issues, we will monitor the patient closely, continue the current management and symptomatic treatment, DVT prophylaxis, resume the home medications, proton pump inhibitors, broad-spectrum IV antibiotics. Cultures are negative so far. Follow closely with Infectious Disease and other consultants. Further recommendations to follow. MMODL / IJN: [id number] /
[2021-01-11] MEDS: SODIUM CHLORIDE 0.9% 1,000 ML IV SCH ×2 (06:08→16:04)
[2021-01-11] MEDS: LACTATED RINGERS 1,000 ML IV SCH (08:11)
[2021-01-11] MEDS: PANTOPRAZOLE 40 MG/10 ML VIAL IV SCH (08:13)
[2021-01-11] MEDS: HEPARIN SODIUM,PORCINE/PF 5,000 UNIT/0.5 ML SYRINGE SQ SCH ×2 (08:13→22:12)
--- NOTE | 2021-01-11 08:43 | P.PN ---
Progress Note - Text Date: 01/11/2021 Time: 07:58 The patient is status post, sigmoid colectomy, postoperative day number 2 The patient has no complaints of nausea vomiting or headache. The patient does not complain of any lower extremity numbness or weakness. The epidural is running at 10 mL per hour. VAS 4-10. The epidural will be maintained and adjusted as needed.
--- NOTE | 2021-01-11 16:03 | P.PN ---
Subjective Progress Note Date: 01/11/21 CHIEF COMPLAINT: Complicated diverticulitis HISTORY OF PRESENT ILLNESS: The patient is a 60 year old female status post diverting left colostomy for complicated pelvic diverticulitis. She denies any moderate abdominal pain. She reports heartburn with Jell-O. She is eager to eat more. Ostomy has not been functioning as of yet. She reports sitting up in bed. She has a bedside sitter for depression. She is in much better mood. Epidural is present. REVIEW OF ORGAN SYSTEMS: No fevers or chills. No dyspnea on exertion. No chest pain. PHYSICAL EXAM: VITALS: Reviewed CONSTITUTIONAL: Well developed and in no acute distress. EYES: Conjuctivae without sclera icterus. Extraocular movements grossly intact. Wears glasses. HEAD, EARS, NOSE, THROAT: Moist buccal mucosa. Head is atraumatic, no rmocephalic. Hears conversational speech. No nasal drainage. RESPIRATORY: Non-labored respirations and equal bilateral excursions. No gross wheezes. CARDIOVASCULAR: Palpable 2+ radial pulses. ABDOMEN: Incisions clean dry and intact. Ostomy without flatus. Pain patent. MUSCULOSKELETAL: Nail and fingers with good capillary refill. SKIN: Warm and well perfused with good skin turgor. NEUROLOGIC: Cranial nerves II through XII grossly intact. No focal or lateralizing signs. PSYCH: Appropriate affect. Alert and oriented to person, place and time. KOHLI: Clear CLINCAL LABS: Reviewed. WBC normal. ASSESSMENT: 1. Complicated sigmoid diverticulitis with abscess 2. Failed outpatient management 3. Tobacco cessation and counseling over 3 minutes PLAN: 1. Continue IV antibiotics. 2. Will advance diet. 3. Ambulation encouraged 4. Discontinue epidural per protocol with Kohli catheter after 72 hours Objective - Vital Signs Vital signs: Vital Signs Temp 98.3 F 01/11/21 11:34 Pulse 70 01/11/21 11:34 Resp 18 01/11/21 11:34 BP 148/78 01/11/21 11:34 Pulse Ox 97 01/11/21 11:34 Intake & Output 01/10/21 01/11/21 01/11/21 18:59 06:59 18:59 Output Total 2700 700 1000 Balance -2700 -700 -1000 Output: Urine 2700 700 1000 Uretheral (Kohli) 700 Other: Voiding Method Indwelling Catheter Indwelling Catheter Indwelling Catheter - Labs CBC & Chem 7: 01/10/21 05:52 01/10/21 05:52 Labs: Microbiology - Last 24 Hours (Table) 01/09/21 17:25 Gram Stain - Preliminary Other - Other Wound Culture - Preliminary 01/09/21 17:25 Gram Stain - Preliminary Other - Other Wound Culture - Preliminary 01/05/21 13:17 Blood Culture - Preliminary Blood No Growth after 120 hours 01/05/21 13:12 Blood Culture - Preliminary Blood No Growth after 120 hours Assessment and Plan (1) Abscess of sigmoid colon due to diverticulitis Current Visit: Yes Status: Acute Code(s): K57.20 - DVTRCLI OF LG INT W PERFORATION AND ABSCESS W/O BLEEDING SNOMED Code(s): 9978690539038640 (2) Noncompliance Current Visit: Yes Status: Acute Code(s): Z91.19 - PATIENT'S NONCOMPLIANCE W OTH MEDICAL TREATMENT AND REGIMEN SNOMED Code(s): 7418260 (3) Tobacco abuse disorder Current Visit: Yes Status: Acute Code(s): Z72.0 - TOBACCO USE SNOMED Code(s): 066129472 (4) Diverticulitis Current Visit: Yes Status: Acute Code(s): K57.92 - DVTRCLI OF INTEST, PART UNSP, W/O PERF OR ABSCESS W/O BLEED SNOMED Code(s): 250418828 (5) Colovaginal fistula Current Visit: No Status: Acute Code(s): N82.4 - OTHER FEMALE INTESTINAL- GENITAL TRACT FISTULAE SNOMED Code(s): 792656010
[2021-01-11] MEDS: ALVIMOPAN 12 MG CAPSULE PO SCH ×2 (16:41→22:12)
[2021-01-11] MEDS: ACETAMINOPHEN TAB 500 MG TAB PO SCH ×2 (16:41→23:32)
--- NOTE | 2021-01-11 20:47 | PN ---
PROGRESS NOTE DATE OF SERVICE: 01/11/2021 I am covering for Dr. Berg. This 60-year-old woman who was admitted with acute diverticular abscesses and colovesical fistula, had colostomy at this time. The patient had surgery. No chest pain. No palpitations. No fever. PHYSICAL EXAMINATION: Alert and oriented x2. Pulse 70. Blood pressure 140/78, respirations 18, temperature 98.3, pulse ox 97% on room air. HEENT: Conjunctivae normal. NECK: No JVD. CARDIOVASCULAR: S1, S2 muffled. RESPIRATORY SYSTEM: Breath sounds diminished at the bases. No rhonchi. No crackles. ABDOMEN: Soft. Nontender. NERVOUS SYSTEM: No focal deficits. LABORATORY DATA: WBC 4.5. Other labs are noted. ASSESSMENT: 1. Acute diverticular abscess with colovesical fistula status post descending colostomy creation. 2. Frozen pelvis sigmoid colon to bladder without any tyrone abscess visualized during the surgery. 3. Hypokalemia. 4. History of asthma, chronic obstructive pulmonary disease. 5. Fibromyalgia. 6. Hypertension. 7. Hyperlipidemia. 8. History of degenerative joint disease. 9. History of pulmonary embolus. 10.History of pancreatitis. 11.History of chronic pain syndrome. 12.History of bilateral scoliosis. 13.History of diverticulitis, diverticulosis. 14.History of hysterectomy. 15.History of anxiety, depression. 16.Remote history of nicotine dependence. 17.FULL CODE. RECOMMENDATIONS AND DISCUSSION: Continue current medications. Currently patient is on IV Zosyn. Otherwise, continue to monitor. Follow closely with surgery. Dr. Berg will follow tomorrow. MMODL / IJN: [id number] /
[2021-01-11] MEDS: ROPIVACAINE 250 MG, fentaNYL (PF) 1,250 MCG in SODIUM CHLORIDE 0.9% 175 ML EPIDURAL PRN (22:16)
--- NOTE | 2021-01-11 23:44 | PN ---
PROGRESS NOTE DATE OF SERVICE: 01/11/2021 REASON FOR FOLLOWUP: Complicated diverticulitis. INTERVAL HISTORY: Patient is afebrile. The patient is hemodynamically stable, breathing comfortably. No chest pain or cough. No worsening abdominal pain. Has been tolerating her diet per nursing staff. No vomiting. PHYSICAL EXAMINATION: Blood pressure 153/82 with a pulse of 75, temperature 98.5. She is 92% on room air. General description: The patient is a middle aged female lying in bed in no distress. Respiratory system: Unlabored breathing, clear to auscultation anteriorly. Heart S1, S2. Regular rate and rhythm. Abdomen soft, no tenderness. LABS: Hemoglobin is 13.6, white count 4.5. BUN of 4 creatinine 0.57. Abdominal culture pending. DIAGNOSTIC IMPRESSION AND PLAN: Patient with complicated diverticulitis status post diverting colostomy. Cultures are pending. Patient is covered with Zosyn adjusting it further based on culture report. Continue supportive care. MMODL / IJN: [id number] /
[2021-01-12] MEDS: LACTATED RINGERS 1,000 ML IV SCH (04:10)
[2021-01-12] MEDS: SODIUM CHLORIDE 0.9% 1,000 ML IV SCH ×2 (04:16→17:01)
[2021-01-12] MEDS: ACETAMINOPHEN TAB 500 MG TAB PO SCH ×4 (05:02→22:59)
[2021-01-12] MEDS: PANTOPRAZOLE 40 MG/10 ML VIAL IV SCH (08:56)
[2021-01-12] MEDS: ALVIMOPAN 12 MG CAPSULE PO SCH ×2 (08:56→20:36)
[2021-01-12] MEDS: HEPARIN SODIUM,PORCINE/PF 5,000 UNIT/0.5 ML SYRINGE SQ SCH ×2 (08:56→20:36)
[2021-01-12] MEDS: PIPERACILLIN-TAZOBACTAM 3.375 GM in SODIUM CHLORIDE 0.9% 100 ML IVPB SCH ×2 (08:57→17:02)
--- NOTE | 2021-01-12 09:05 | P.PN ---
Progress Note - Text Date: 01/12/2021 Time: 07:07 The patient is status post, sigmoid colectomy, postoperative day number 3 The patient has no complaints of nausea vomiting or headache. The patient does not complain of any lower extremity numbness or weakness. The epidural is running at 10 mL per hour. VAS 3-10. The epidural will be discontinued this a.m., pain meds will be provided to the patient by the service.
[2021-01-12 12:24] VITALS: BMI 27.4
--- NOTE | 2021-01-12 13:39 | P.PN ---
<Kayla Mera - Last Filed: 01/12/21 13:33> Subjective Progress Note Date: 01/12/21 CHIEF COMPLAINT: Complicated diverticulitis HISTORY OF PRESENT ILLNESS: The patient is a 60 year old female status post diverting left colostomy for complicated pelvic diverticulitis. She denies any abdominal pain. There is air in her ostomy bag. She has a bedside sitter for depression. Epidural is present and scheduled to be discontinued today. Afebrile no new labs for today PHYSICAL EXAM: VITAL SIGNS: Reviewed GENERAL: Well-developed in no acute distress. HEENT: No sclera icterus. Extraocular movements grossly intact. Moist buccal mucosa. Head is atraumatic, normocephalic. Hears conversational speech. No nasal dr ainage. NECK: Supple without lymphadenopathy. CHEST: Non-labored respirations and equal bilateral excursions. CARDIOVASCULAR: Palpable 2+ radial pulses. ABDOMEN: Soft. Nondistended. Incision site clean dry and intact. Ostomy with flatus present MUSCULOSKELETAL: No clubbing or cyanosis. NEUROLOGIC: No focal or lateralizing signs. Cranial nerves II through XII grossly intact. PSYCH: Appropriate affect. Alert and oriented to person, place and time. SKIN: Well perfused. Good skin turgor. ASSESSMENT: 1. Complicated sigmoid diverticulitis with abscess 2. Failed outpatient management 3. Tobacco cessation and counseling over 3 minutes PLAN: -Continue IV antibiotics. -Discontinue epidural and Barton catheter -Continue regular diet -Encourage patient to ambulate -Encourage patient to use incentive spirometer Physician [employer] Operator note has been reviewed by physician. Signing provider agrees with the documented findings, assessment, and plan of care. Objective - Vital Signs Vital signs: Vital Signs Temp 98.3 F 01/12/21 11:44 Pulse 61 01/12/21 11:44 Resp 16 01/12/21 11:44 BP 143/82 01/12/21 11:44 Pulse Ox 94 L 01/12/21 11:44 Intake & Output 01/11/21 01/12/21 01/12/21 18:59 06:59 18:59 Intake Total 1850 Output Total 2913 678 0206 Balance -1000 1050 -1600 Weight 77.111 kg Intake: Intake, IV Titration 1250 Amount Piperacillin-Tazobactam 3 100 .375 gm In Sodium Chloride 0.9% 100 ml @ 25 mls/hr IVPB Q8HR [facility] Rx# :[id number] Ropivacaine 250 mg 250 fentaNYL (PF) 1,250 mcg In Sodium Chloride 0.9% 175 ml @ Per Protocol EPIDURAL .Q0M PRN Rx#: [id number] Sodium Chloride 0.9% 1, 900 000 ml @ 75 mls/hr IV . [id number] [facility] Rx#:[id number] Oral 600 Output: Urine 2763 381 6858 Uretheral (Barton) 800 Other: Voiding Method Indwelling Catheter Indwelling Catheter Indwelling Catheter - Labs CBC & Chem 7: 01/10/21 05:52 01/10/21 05:52 Labs: Microbiology - Last 24 Hours (Table) 01/09/21 17:25 Gram Stain - Final Other - Other Wound Culture - Final 01/09/21 17:25 Gram Stain - Final Other - Other Wound Culture - Final 01/05/21 13:17 Blood Culture - Final Blood No Growth after 144 hours 01/05/21 13:12 Blood Culture - Final Blood No Growth after 144 hours <Candice Leo - Last Filed: 01/13/21 06:56> Subjective Patient seen and evaluated with above CHIEF COMPLAINT: Complicated diverticulitis HISTORY OF PRESENT ILLNESS: The patient is a 60 year old female status post diverting left colostomy for complicated pelvic diverticulitis. She isn't bett er mood. Her ostomy is functioning. She is tolerating diet. REVIEW OF ORGAN SYSTEMS: No fevers or chills. No dyspnea on exertion. No chest pain. PHYSICAL EXAM: VITALS: Reviewed CONSTITUTIONAL: Well developed and in no acute distress. EYES: Conjuctivae without sclera icterus. Extraocular movements grossly intact. Wears glasses. HEAD, EARS, NOSE, THROAT: Moist buccal mucosa. Head is atraumatic, normocephalic. Hears conversational speech. No nasal drainage. RESPIRATORY: Non-labored respirations and equal bilateral excursions. No gross wheezes. CARDIOVASCULAR: Palpable 2+ radial pulses. ABDOMEN: Incisions clean dry and intact. Ostomy was flatus. No stool. MUSCULOSKELETAL: Nail and fingers with good capillary refill. SKIN: Warm and well perfused with good skin turgor. NEUROLOGIC: Cranial nerves II through XII grossly intact. No focal or lateralizing signs. PSYCH: Appropriate affect. Alert and oriented to person, place and time. BARTON: Clear ASSESSMENT: 1. Complicated sigmoid diverticulitis with abscess PLAN: 1. Discontinue Barton. 2. Discontinue epidural 3. Disposition in 24-48 hours Objective - Vital Signs Vital signs: Vital Signs Temp 97.6 F 01/13/21 04:52 Pulse 62 01/13/21 04:52 Resp 16 01/13/21 04:52 BP 159/89 01/13/21 04:52 Pulse Ox 96 01/13/21 04:52 Intake & Output 01/12/21 01/12/21 01/13/21 06:59 18:59 06:59 Intake Total 8693 111 7779 Output Total 800 2600 1700 Balance 1049 Weight 77.111 kg Intake: Intake, IV Titration 1250 1000 Amount Piperacillin-Tazobactam 3 100 100 .375 gm In Sodium Chloride 0.9% 100 ml @ 25 mls/hr IVPB Q8HR [facility] Rx# :[id number] Ropivacaine 250 mg 250 fentaNYL (PF) 1,250 mcg In Sodium Chloride 0.9% 175 ml @ Per Protocol EPIDURAL .Q0M PRN Rx#: [id number] Sodium Chloride 0.9% 1, 900 900 000 ml @ 75 mls/hr IV . [id number] [facility] Rx#:[id number] Oral 600 580 290 Output: Urine 800 2600 1700 Uretheral (Barton) 800 1700 Other: Voiding Method Indwelling Catheter Indwelling Catheter Indwelling Catheter - Labs CBC & Chem 7: 01/10/21 05:52 01/10/21 05:52 Assessment and Plan (1) Abscess of sigmoid colon due to diverticulitis Current Visit: Yes Status: Acute Code(s): K57.20 - DVTRCLI OF LG INT W PERFORATION AND ABSCESS W/O BLEEDING SNOMED Code(s): 5034630289921562 (2) Noncompliance Current Visit: Yes Status: Acute Code(s): Z91.19 - PATIENT'S NONCOMPLIANCE W OTH MEDICAL TREATMENT AND REGIMEN SNOMED Code(s): 8140957 (3) Tobacco abuse disorder Current Visit: Yes Status: Acute Code(s): Z72.0 - TOBACCO USE SNOMED Code(s): 300213978 (4) Diverticulitis Current Visit: Yes Status: Acute Code(s): K57.92 - DVTRCLI OF INTEST, PART UNSP, W/O PERF OR ABSCESS W/O BLEED SNOMED Code(s): 827007505 (5) Colovaginal fistula Current Visit: No Status: Acute Code(s): N82.4 - OTHER FEMALE INTESTINAL- GENITAL TRACT FISTULAE SNOMED Code(s): 820847937
[2021-01-12 14:51] LABS: Anabasine Urine <2.0 ng/mL (<2.0)
--- NOTE | 2021-01-12 15:27 | P.PN ---
Subjective Progress Note Date: 01/12/21 Kamryn Martin is a 60 yo F with H diverticulitis who presented to the ED with worsening abdominal pain. She was recently admitted approximately 2 weeks ago for diverticulitis with abscess and seen at that time by surgery and ID. She was treated with zosyn and had been discharged home on zosyn. Despite antibiotics she has continued to complain of fever, chills and abdominal pain that is now worsening. On presentation T 99, WBC 8.9k, CT showing worsening pericolonic abscess. 01/07/2021 per staff, daughter yesterday shared that patient was placing suicide threats over the phone to her and that her mom has a history of prior suicide attempts and depression. Patient's daughter petitioned her mom. Patient became upset attempted to leave AMA and required security assistance. Upon entering the room, patient was in shower. Patient stated that she was not receiving her pain medication. States prior to shift change, she was promised pain medication, never received it. The oncoming shift came on, stated it was charted as being given and she went without. Patient had multiple complaints about the nursing staff/care that she had received last night. Recommended/encouraged patient to talk with community coordinator for high school. This morning, RN states patient refusing pain meds currently.Denies suicidal ideation or homicidal ideation. Patient very upset with her daughter- states her daughter was drunk on wine coolers. Appears anxious with impaired insight secondary to medical condition. Discussed with usman benton, psychiatry consulted. Maintained on IV antibiotics of Zosyn as per ID. Afebrile, preliminary blood cultures negative. Denies chest pain, palpitations or shortness of breath. Reports abdominal pain currently controlled. 01/08/2021 maintained on IV antibiotics.remains in suicide precautions, sitter at bedside. Reports nausea from Dilaudid. Offered alternatives, patient declined. Telemetry received Zofran. Discussed surgery with ostomy creation, ostomy care and patient appears to understand and wishes to proceed with surgery. Reports she can't sleep, offered medications, declined. Ativan offered, declined. Frustrated and agitated over suicide precautions/psychiatrist following.Labs pending. 01/09/2021 NPO for surgery today maintained on IV fluids and antibiotics. Dilaudid discontinued with no further nausea and vomiting. Abdominal pain improved. Suicide precautions maintained/construction safety manager at bedside. Afebrile, normal WBC .Patient calm, cooperative, pleasant. 01/12/2021 Status post diverting left colostomy for complicated pelvic diverticulitis. States pain controlled with epidural, minimal right sided, right lower quadrant pain. Reports epidural is being discontinued today. Positive diet intake with no nausea vomiting or diarrhea. Minimal cough. Reports she had been up in the chair yesterday. Ostomy teaching pending. Suicide precautions maintained with construction safety manager. Afebrile. Objective - Vital Signs Vital signs: Vital Signs Temp 98.3 F 01/12/21 11:44 Pulse 61 01/12/21 11:44 Resp 16 01/12/21 11:44 BP 143/82 01/12/21 11:44 Pulse Ox 94 L 01/12/21 11:44 Intake & Output 01/11/21 01/12/21 01/12/21 18:59 06:59 18:59 Intake Total 1850 Output Total 7620 520 0610 Balance -1000 1050 -1600 Weight 77.111 kg Intake: Intake, IV Titration 1250 Amount Piperacillin-Tazobactam 3 100 .375 gm In Sodium Chloride 0.9% 100 ml @ 25 mls/hr IVPB Q8HR [facility] Rx# :[id number] Ropivacaine 250 mg 250 fentaNYL (PF) 1,250 mcg In Sodium Chloride 0.9% 175 ml @ Per Protocol EPIDURAL .Q0M PRN Rx#: [id number] Sodium Chloride 0.9% 1, 900 000 ml @ 75 mls/hr IV . [id number] [facility] Rx#:[id number] Oral 600 Output: Urine 7066 678 4640 Uretheral (Barton) 800 Other: Voiding Method Indwelling Catheter Indwelling Catheter Indwelling Catheter - Exam General: Sitting in bed .NAD. Vitals reviewed,pleasant, calm. Eyes: PERRL, EOMI, conjunctiva normal. HENT: normocephalic, mucus membranes dry(NPO). Neck: supple, no JVD. Lungs: normal respiratory effort, no wheezes or rales CV: Regular rate and rhythm, no murmur. Peripheral pulses 2+ Abdomen: soft, status post surgery, generalized tenderness to palpation, incision site C,D,I .Ostomy with flatus. Skin: warm and dry. Neuro: A&Ox3, normal mood and affect - Labs CBC & Chem 7: 01/10/21 05:52 01/10/21 05:52 Labs: Microbiology - Last 24 Hours (Table) 01/09/21 17:25 Gram Stain - Final Other - Other Wound Culture - Final 01/09/21 17:25 Gram Stain - Final Other - Other Wound Culture - Final 01/05/21 13:17 Blood Culture - Final Blood No Growth after 144 hours 01/05/21 13:12 Blood Culture - Final Blood No Growth after 144 hours Assessment and Plan Assessment: Diverticulitis with diverticular abscess, failed outpatient antibiotic therapy, status post diverting left colostomy Gastroesophageal reflux disease Anxiety disorder unspecified, anxious affect and impaired insight secondary to medical condition. Petitioned by daughter regarding suicidal threats; suicide precautions initiated,psychiatry following. Depression COPD, stable Fibromyalgia Hypertension hyperlipidemia History of PE Chronic pain syndrome History of alcohol abuse, none since 2009 Daily THC use Former nicotine dependence Plan: Continue on current medication regime ,monitoring and symptomatic treatment.Continue on IV fluid hydration, antibiotic therapy. DC of Barton and epidural as per surgery.aggressive pulmonary toileting with incentive spirometer reinforced.increase ambulation as tolerated .maintain suicide precautions/construction safety manager. The impression and plan of care has been dictated as directed. : I performed a history and examination of this patient, discussed the same with the dictator. I agree with the dictator's note ,documented as a scribe. Any additional findings or plans will be noted.
[2021-01-12] MEDS: HYDROcodone/APAP 10-325MG 1 EACH TAB PO PRN (17:06)
--- NOTE | 2021-01-12 18:20 | PN ---
PROGRESS NOTE DATE OF SERVICE: 01/12/2021 SUBJECTIVE: The patient was asked to be to reseen again by psychiatry today for followup. The patient's nurse claims that patient has been more cooperative, calmer and taking her medications and is postop diverting colostomy A3. The patient was seen at the bedside with her one-to-one sitter, is agreeable to speak to provider. She claims that she is doing much better in terms of her pain and also her mood. She is denying any anxiety at this time. She continues to have fairly superficial insight and judgment and claims that she is able to sleep at night fairly well. She claims that her appetite has been improving since the surgery and now is on a full diet. Patient claims that she is able to sleep throughout the night and at this time she is denying any auditory or visual hallucinations and denying any suicidal or homicidal ideations, intent, or plan. She adamantly was refusing medications and does not want to be started on any antidepressant medication at this time. She claims she had a dispute with his daughter over the phone which is the reason for the original petition. She is not endorsing any paranoia or delusional content. MENTAL STATUS EXAM: The patient appears to be elderly, has glasses, fair hygiene and grooming. She is lying in the hospital bed with a hospital gown. She appears to be superficially cooperative and irritable at times. She is denying any depression. States that her mood is "fine" and denying any anxiety today. Her affect is congruent and constricted. Irritable at times. Her speech was fluent and non pressured. She was goal oriented and did not endorse any delusions or paranoia. She was not endorsing any auditory or visual hallucinations. She was not endorsing any suicidal or homicidal ideations, intent, or plan. She was alert and oriented x3. Superficially cooperative. Insight and judgment. ASSESSMENT AND PLAN: Continue on with current assessment. At this time, the patient does not meet criteria for inpatient psychiatric hospitalization as patient is not any longer suicidal or endorsing depression. She appears to have improved since the surgery and also is refusing any medications including antidepressants and anxiolytics. She will followup with psychiatric outpatient followup upon discharge, social sciences instructor to provide patient with outpatient resources for this. Discussed with the patient in depth about if she would like to be admitted psychiatrically for her symptoms. However, patient is declining and would prefer to do outpatient treatment. She at this time is not appropriate for involuntary admission. At this time, Psychiatry will sign off. Please contact with any questions. MANOJ / AMALIA: [id number] /
--- NOTE | 2021-01-12 21:07 | PN ---
PROGRESS NOTE DATE OF SERVICE: 01/12/2021 REASON FOR FOLLOWUP: Complicated diverticulitis. INTERVAL HISTORY: Patient is afebrile. The patient is breathing comfortably. The patient's abdominal pain is currently controlled. Denies any chest pain, shortness of breath or cough. No nausea, vomiting or diarrhea. PHYSICAL EXAMINATION: Blood pressure 143/82 with a pulse of 71, temperature 98.2. She is 94% on room air. General description is a middle-aged female lying in bed in no distress. Respiratory system: Unlabored breathing, clear to auscultation anteriorly. Heart S1, S2. Regular rate and rhythm. Abdomen soft, no tenderness. LABS: Hemoglobin is 13.1, white count 4.5, BUN of 4, creatinine 0.57. Abdominal culture has been negative so far. DIAGNOSTIC IMPRESSION AND PLAN: Patient with complicated diverticulitis status post sigmoid colectomy and diverting colostomy. Cultures have been negative for resistant pathogen. Patient covered with Zosyn, transition to oral antibiotic on discharge. MMODL / IJN: [id number] /
[2021-01-13] MEDS: PIPERACILLIN-TAZOBACTAM 3.375 GM in SODIUM CHLORIDE 0.9% 100 ML IVPB SCH ×3 (00:01→15:40)
[2021-01-13] MEDS: MORPHINE SULFATE 4 MG/ML SYRINGE IVP PRN ×3 (00:09→15:56)
[2021-01-13] MEDS: LACTATED RINGERS 1,000 ML IV SCH (03:18)
[2021-01-13] MEDS: ACETAMINOPHEN TAB 500 MG TAB PO SCH ×3 (03:21→17:51)
[2021-01-13] MEDS: SODIUM CHLORIDE 0.9% 1,000 ML IV SCH ×2 (04:43→22:05)
[2021-01-13] MEDS: HYDROcodone/APAP 10-325MG 1 EACH TAB PO PRN ×3 (04:48→20:02)
[2021-01-13] MEDS: ALVIMOPAN 12 MG CAPSULE PO SCH ×2 (07:15→22:05)
[2021-01-13] MEDS: PANTOPRAZOLE 40 MG/10 ML VIAL IV SCH (07:16)
[2021-01-13] MEDS: HEPARIN SODIUM,PORCINE/PF 5,000 UNIT/0.5 ML SYRINGE SQ SCH ×2 (07:16→22:05)
--- NOTE | 2021-01-13 14:29 | P.PN ---
Subjective Progress Note Date: 01/13/21 Kamryn Martin is a 60 yo F with H diverticulitis who presented to the ED with worsening abdominal pain. She was recently admitted approximately 2 weeks ago for diverticulitis with abscess and seen at that time by surgery and ID. She was treated with zosyn and had been discharged home on zosyn. Despite antibiotics she has continued to complain of fever, chills and abdominal pain that is now worsening. On presentation T 99, WBC 8.9k, CT showing worsening pericolonic abscess. 01/07/2021 per staff, daughter yesterday shared that patient was placing suicide threats over the phone to her and that her mom has a history of prior suicide attempts and depression. Patient's daughter petitioned her mom. Patient became upset attempted to leave AMA and required security assistance. Upon entering the room, patient was in shower. Patient stated that she was not receiving her pain medication. States prior to shift change, she was promised pain medication, never received it. The oncoming shift came on, stated it was charted as being given and she went without. Patient had multiple complaints about the nursing staff/care that she had received last night. Recommended/encouraged patient to talk with mechanical unit repairer. This morning, RN states patient refusing pain meds currently.Denies suicidal ideation or homicidal ideation. Patient very upset with her daughter- states her daughter was drunk on wine coolers. Appears anxious with impaired insight secondary to medical condition. Discussed with usman benton, psychiatry consulted. Maintained on IV antibiotics of Zosyn as per ID. Afebrile, preliminary blood cultures negative. Denies chest pain, palpitations or shortness of breath. Reports abdominal pain currently controlled. 01/08/2021 maintained on IV antibiotics.remains in suicide precautions, sitter at bedside. Reports nausea from Dilaudid. Offered alternatives, patient declined. Telemetry received Zofran. Discussed surgery with ostomy creation, ostomy care and patient appears to understand and wishes to proceed with surgery. Reports she can't sleep, offered medications, declined. Ativan offered, declined. Frustrated and agitated over suicide precautions/psychiatrist following.Labs pending. 01/09/2021 NPO for surgery today maintained on IV fluids and antibiotics. Dilaudid discontinued with no further nausea and vomiting. Abdominal pain improved. Suicide precautions maintained/clinical safety specialist at bedside. Afebrile, normal WBC .Patient calm, cooperative, pleasant. 01/12/2021 Status post diverting left colostomy for complicated pelvic diverticulitis. States pain controlled with epidural, minimal right sided, right lower quadrant pain. Reports epidural is being discontinued today. Positive diet intake with no nausea vomiting or diarrhea. Minimal cough. Reports she had been up in the chair yesterday. Ostomy teaching pending. Suicide precautions maintained with clinical safety specialist. Afebrile. 01/13/2021 evaluated by psychiatry with suicide precautions discontinued withi no further transfer required to inpatient MHU. Epidural discontinued yesterday, complains of significant pain. Passing flatus, minimal liquid output in ostomy appliance. Not yet received ostomy teaching. Good diet intake with no nausea vomiting. Denies chest pain, palpitations or shortness of breath. Afebrile, normal WBC, cultures finalizing. Objective - Vital Signs Vital signs: Vital Signs Temp 97.6 F 01/13/21 04:52 Pulse 62 01/13/21 04:52 Resp 16 01/13/21 04:52 BP 159/89 01/13/21 04:52 Pulse Ox 96 01/13/21 04:52 Intake & Output 01/12/21 01/13/21 01/13/21 18:59 06:59 18:59 Intake Total 580 1290 Output Total 2600 1700 300 Balance -2019 -300 Weight 77.111 kg Intake: Intake, IV Titration 1000 Amount Piperacillin-Tazobactam 3 100 .375 gm In Sodium Chloride 0.9% 100 ml @ 25 mls/hr IVPB Q8HR [facility] Rx# :[id number] Sodium Chloride 0.9% 1, 900 000 ml @ 75 mls/hr IV . [id number] [facility] Rx#:[id number] Oral 580 290 Output: Urine 2600 1700 300 Uretheral (Barton) 1700 300 Other: Voiding Method Indwelling Catheter Indwelling Catheter - Exam General: Sitting in bed .NAD. Vitals reviewed,pleasant, calm. Eyes: PERRL, EOMI, conjunctiva normal. HENT: normocephalic, mucus membranes dry(NPO). Neck: supple, no JVD. Lungs: normal respiratory effort, no wheezes or rales CV: Regular rate and rhythm, no murmur. Peripheral pulses 2+ Abdomen: soft, status post surgery, generalized tenderness to palpation, incision site C,D,I .wound VAC,Ostomy with flatus. Skin: warm and dry. Neuro: A&Ox3, normal mood and affect - Labs CBC & Chem 7: 01/10/21 05:52 01/10/21 05:52 Assessment and Plan Assessment: Diverticulitis with diverticular abscess, failed outpatient antibiotic therapy, status post diverting left colostomy Gastroesophageal reflux disease Anxiety disorder unspecified, anxious affect and impaired insight secondary to medical condition. Petitioned by daughter regarding suicidal threats; suicide precautions initiated,psychiatry following. Suicide precautions now discontinued per psychiatry. Depression COPD, stable Fibromyalgia Hypertension hyperlipidemia History of PE Chronic pain syndrome History of alcohol abuse, none since 2009 Daily THC use Former nicotine dependence Plan: Continue on current medication regime ,monitoring and symptomatic treatment.antibiotics as per ID.PT/OT, patient is open to subacute rehab at discharge .Continue aggressive pulmonary toileting with incentive spirometer reinforced.increase ambulation as tolerated . Suicide precautions discontinued by psychiatry. Ostomy teaching pending. Discharge planning in progress with social work's energy assistant for subacute rehab., pending surgery clearance. The impression and plan of care has been dictated as directed. : I performed a history and examination of this patient, discussed the same with the dictator. I agree with the dictator's note ,documented as a scribe. Any additional findings or plans will be noted.
[2021-01-13 14:53] LABS: African American GFR (CKD) 122.8 (60.0-200.0); Albumin 3.5 g/dL (3.80-4.90); Albumin/Globulin Ratio 1.25 (1.60-3.17); Anion Gap 9.3 mmol/L (4.00-12.00); Calcium 8.8 mg/dL (8.7-10.3); Carbon Dioxide 26.7 mmol/L (21.6-31.8); Globulin 2.8 g/dL (1.6-3.3); Magnesium 1.6 mg/dL (1.5-2.4); Non-African American GFR(CKD) 105.9 (60.0-200.0); Potassium 3.6 mmol/L (3.5-5.5); Total Bilirubin 0.3 mg/dL (0.2-1.2); Total Protein 6.3 g/dL (6.2-8.2)
--- NOTE | 2021-01-13 15:25 | P.PN ---
Subjective Progress Note Date: 01/13/21 CHIEF COMPLAINT: Complicated diverticulitis HISTORY OF PRESENT ILLNESS: The patient is a 60 year old female status post diverting left colostomy for complicated pelvic diverticulitis. Patient had complained of abdominal pain early in the morning. She does report that her pain is controlled with pain medication. She has required the IV morphine. She is having small amount of stool through her ostomy. She denies any nausea or vomiting. Patient evaluated by psychiatry yesterday and her bedside sitter was discontinued. She is being evaluated for possible ECF placement. Afebrile. PHYSICAL EXAM: VITAL SIGNS: Reviewed GENERAL: Well-developed in no acute distress. HEENT: No sclera icterus. Extraocular movements grossly intact. Moist buccal mucosa. Head is atraumatic, normocephalic. Hears conversational speech. No nasal drainage. NECK: Supple without lymphadenopathy. CHEST: Non-labored respirations and equal bilateral excursions. CARDIOVASCULAR: Palpable 2+ radial pulses. ABDOMEN: Soft. Nondistended. Incision site clean dry and intact. Ostomy with small amount of stool present MUSCULOSKELETAL: No clubbing or cyanosis. NEUROLOGIC: No focal or lateralizing signs. Cranial nerves II through XII grossly intact. PSYCH: Appropriate affect. Alert and oriented to person, place and time. SKIN: Well perfused. Good skin turgor. ASSESSMENT: 1. Complicated sigmoid diverticulitis with abscess 2. Failed outpatient management 3. Tobacco cessation and counseling over 3 minutes PLAN: -Patient to be seen by ostomy nurse for ostomy teaching -Continue antibiotics per ID -Continue regular diet -Encourage patient to ambulate -Encourage patient to use incentive spirometer -Continue pain medications as needed Physician Financial Institution Manager note has been reviewed by physician. Signing provider agrees with the documented findings, assessment, and plan of care. Objective - Vital Signs Vital signs: Vital Signs Temp 98.1 F 01/13/21 11:55 Pulse 79 01/13/21 11:55 Resp 16 01/13/21 11:55 BP 148/89 01/13/21 11:55 Pulse Ox 94 L 01/13/21 11:55 Intake & Output 01/12/21 01/13/21 01/13/21 18:59 06:59 18:59 Intake Total 580 1290 Output Total 2600 1700 300 Balance -2019 -300 Weight 77.111 kg Intake: Intake, IV Titration 1000 Amount Piperacillin-Tazobactam 3 100 .375 gm In Sodium Chloride 0.9% 100 ml @ 25 mls/hr IVPB Q8HR [facility] Rx# :[id number] Sodium Chloride 0.9% 1, 900 000 ml @ 75 mls/hr IV . [id number] [facility] Rx#:[id number] Oral 580 290 Output: Urine 2600 1700 300 Uretheral (Barton) 1700 300 Other: Voiding Method Indwelling Catheter Indwelling Catheter Indwelling Catheter - Labs CBC & Chem 7: 01/10/21 05:52 01/13/21 05:18 Labs: Abnormal Lab Results - Last 24 Hours (Table) 01/13/21 Range/Units 05:18 BUN 7.0 L (9.0-27.0) mg/dL Creatinine 0.5 L (0.6-1.5) mg/dL Glucose 113 H (70-110) mg/dL Albumin 3.50 L (3.80-4.90) g/dL Albumin/Globulin Ratio 1.25 L (1.60-3.17) g/dL
[2021-01-13] MEDS ORDERED: POTASSIUM CHLORIDE ER 20 MEQ TAB.ER PO SCH (22:00)
[2021-01-13] MEDS: MAGNESIUM SULFATE-D5W PMX 1 GM in DEXTROSE/WATER 1 100ML.BAG IVPB SCH ×2 (22:04→23:28)
[2021-01-14] MEDS: ACETAMINOPHEN TAB 500 MG TAB PO SCH ×4 (00:32→16:30)
[2021-01-14] MEDS: PIPERACILLIN-TAZOBACTAM 3.375 GM in SODIUM CHLORIDE 0.9% 100 ML IVPB SCH ×3 (00:33→15:55)
[2021-01-14] MEDS: SODIUM CHLORIDE 0.9% 1,000 ML IV SCH ×2 (00:34→05:43)
--- NOTE | 2021-01-14 04:50 | PN ---
PROGRESS NOTE DATE OF SERVICE: 01/13/2021 REASON FOR FOLLOWUP: Complicated diverticulitis. INTERVAL HISTORY: Patient is afebrile. The patient is breathing comfortably. Patient denies having any chest pain or shortness of breath or cough. Abdominal pain is currently controlled. No vomiting or diarrhea. PHYSICAL EXAMINATION: Blood pressure 155/87, pulse of 81, temperature 97.8. She is 94% on room air. General description is a middle-aged female lying in bed in no distress. Respiratory system: Unlabored breathing, clear to auscultation anteriorly. Heart S1, S2. Regular rate and rhythm. Abdomen: Soft, no tenderness. LABS: BUN of 7, creatinine 0.5. DIAGNOSTIC IMPRESSION AND PLAN: Patient with complicated diverticulitis in this patient who is status post laparotomy and diverting colostomy with a frozen pelvis. Abdominal culture has been negative. Patient is covered with Zosyn, transition to oral antibiotic on discharge. Monitor clinical course closely. MMODL / IJN: [id number] /
[2021-01-14] MEDS: HYDROcodone/APAP 10-325MG 1 EACH TAB PO PRN (05:40)
[2021-01-14 06:17] LABS: Anisocytosis Slight; Basophils # (A) 0.1 k/uL (0-0.2); Basophils % (A) 1 %; Eosinophils # (A) 0.3 k/uL (0-0.7); Eosinophils % (A) 6 %; HCT 42.4 % (34.0-46.0); HGB 13.3 gm/dL (11.4-16.0); Hypochromasia Slight; Lymphocytes # (A) 1.6 k/uL (1.0-4.8); Lymphocytes % (A) 33 %; MCH 27.4 pg (25.0-35.0); MCHC 31.5 g/dL (31.0-37.0); Mean Platelet Volume 6.4; Monocytes # (A) 0.4 k/uL (0-1.0); Monocytes % (A) 7 %; Neutrophils # (A) 2.4 k/uL (1.3-7.7); Neutrophils % (A) 51 %; Platelet Count 368 k/uL (150-450); RBC 4.87 m/uL (3.80-5.40); RDW 16.5 % (11.5-15.5); WBC 4.8 k/uL (3.8-10.6)
[2021-01-14 06:31] LABS: ALT 11 U/L (4-34); AST 20 U/L (14-36); African American GFR (CKD) >90 (>60 ml/min/1.73 sqM); Albumin 3.2 g/dL (3.5-5.0); Alkaline Phosphatase 69 U/L (38-126); Anion Gap 5 mmol/L; Blood Urea Nitrogen 9 mg/dL (7-17); Calcium 8.8 mg/dL (8.4-10.2); Carbon Dioxide 28 mmol/L (22-30); Chloride 109 mmol/L (98-107); Globulin 3.1 g/dL; Glucose 93 mg/dL (74-99); Magnesium 2.1 mg/dL (1.6-2.3); Non-African American GFR(CKD) >90 (>60 ml/min/1.73 sqM); Potassium 3.7 mmol/L (3.5-5.1); Sodium 142 mmol/L (137-145); Total Bilirubin 0.1 mg/dL (0.2-1.3); Total Protein 6.3 g/dL (6.3-8.2)
[2021-01-14] MEDS ORDERED: POTASSIUM CHLORIDE ER 20 MEQ TAB.ER PO SCH (07:00)
[2021-01-14] MEDS: PANTOPRAZOLE 40 MG/10 ML VIAL IV SCH (08:36)
[2021-01-14] MEDS: HEPARIN SODIUM,PORCINE/PF 5,000 UNIT/0.5 ML SYRINGE SQ SCH (08:37)
[2021-01-14] MEDS: ALVIMOPAN 12 MG CAPSULE PO SCH (08:38)
--- NOTE | 2021-01-14 09:48 | P.DS ---
Providers Date of admission: 01/05/21 16:13 Expected date of discharge: 01/14/21 Attending physician: Santiago Berg MD Consults: 01/05/21 14:45 Consult Physician Routine Consulting Provider: Candice Leo Consult Reason/Comments: Clonic abscess, diverticulitis Do you want consulting provider notified?: Yes 01/06/21 05:23 Consult Physician Routine Consulting Provider: Kedar Coreas Consult Reason/Comments: Colonic abcess, diverticulitis Do you want consulting provider notified?: Yes, Notify in am 01/06/21 22:58 Consult Physician Routine Consulting Provider: Julian Pace Consult Reason/Comments: Petition for suicidal ideation Do you want consulting provider notified?: Yes, Notify in am 01/09/21 07:45 Consult Physician Routine Consulting Provider: [facility] Consult Reason/Comments: Epidural/Regional block Do you want consulting provider notified?: Yes [facility]: Final Diagnoses: Diverticulitis with diverticular abscess, failed outpatient antibiotic therapy, status post diverting left colostomy Gastroesophageal reflux disease Anxiety disorder unspecified, anxious affect and impaired insight secondary to medical condition. Petitioned by daughter regarding suicidal threats; suicide precautions initiated,psychiatry following. Suicide precautions now discontinued per psychiatry. Depression COPD, stable Fibromyalgia Hypertension hyperlipidemia History of PE Chronic pain syndrome History of alcohol abuse, none since 2009 Daily THC use Former nicotine dependence Hospital course:Kamryn Martin is a 60 yo F with PMH diverticulitis who presented to the ED with worsening abdominal pain. She was recently admitted approximately 2 weeks ago for diverticulitis with abscess and seen at that time by surgery and ID. She was treated with zosyn and had been discharged home on zosyn. Despite antibiotics she has continued to complain of fever, chills and abdominal pain that is now worsening. On presentation T 99, WBC 8.9k, CT showing worsening pericolonic abscess. 01/07/2021 per staff, daughter yesterday shared that patient was placing suicide threats over the phone to her and that her mom has a history of prior suicide attempts and depression. Patient's daughter petitioned her mom. Patient became upset attempted to leave AMA and required security assistance. Upon entering the room, patient was in shower. Patient stated that she was not receiving her pain medication. States prior to shift change, she was promised pain medication, never received it. The oncoming shift came on, stated it was charted as being given and she went without. Patient had multiple complaints about the nursing staff/care that she had received last night. Recommended/encouraged patient to talk with community service manager. This morning, RN states patient refusing pain meds currently.Denies suicidal ideation or homicidal ideation. Patient very upset with her daughter- states her daughter was drunk on wine coolers. Appears anxious with impaired insight secondary to medical condition. Discussed with patient, psychiatry consulted. Maintained on IV antibiotics of Zosyn as per ID. Afebrile, preliminary blood cultures negative. Denies chest pain, palpitations or shortness of breath. Reports abdominal pain currently controlled. 01/08/2021 maintained on IV antibiotics.remains in suicide precautions, sitter at bedside. Reports nausea from Dilaudid. Offered alternatives, patient declined. Telemetry received Zofran. Discussed surgery with ostomy creation, ostomy care and patient appears to understand and wishes to proceed with surgery. Reports she can't sleep, offered medications, declined. Ativan offered, declined. Frustrated and agitated over suicide precautions/psychiatri st following.Labs pending. 01/09/2021 NPO for surgery today maintained on IV fluids and antibiotics. Dilaudid discontinued with no further nausea and vomiting. Abdominal pain improved. Suicide precautions maintained/health and safety consultant at bedside. Afebrile, normal WBC .Patient calm, cooperative, pleasant. 01/12/2021 Status post diverting left colostomy for complicated pelvic diverticulitis. States pain controlled with epidural, minimal right sided, right lower quadrant pain. Reports epidural is being discontinued today. Positive diet intake with no nausea vomiting or diarrhea. Minimal cough. Reports she had been up in the chair yesterday. Ostomy teaching pending. Suicide precautions maintained with health and safety consultant. Afebrile. 01/13/2021 evaluated by psychiatry with suicide precautions discontinued withi no further transfer required to inpatient MHU. Epidural discontinued yesterday, complains of significant pain. Passing flatus, minimal liquid output in ostomy appliance. Not yet received ostomy teaching. Good diet intake with no nausea vomiting. Denies chest pain, palpitations or shortness of breath. Afebrile, normal WBC, cultures finalizing. Denies chest pain, palpitations or shortness of breath. Denies lightheadedness, dizziness or focal deficits. Currently sitting up in chair .Significant clinical improvement, patient will be discharged to subacute rehab. today in a stable condition with guarded prognosis pending ostomy teaching, antibiotics as per ID, final DC recommendations/pain management and clearance from surgery. The impression and plan of care has been dictated as directed. : I performed a history and examination of this patient, discussed the same with the dictator. I agree with the dictator's note ,documented as a scribe. Any additional findings or plans will be noted. Patient Condition at Discharge: Stable Plan - Discharge Summary New Discharge Prescriptions: New Acetaminophen Tab [Tylenol] 1,000 mg PO Q6HR tab Omeprazole 40 mg PO DAILY #30 capsule. No Action Piperacillin-Tazobactam [Zosyn] 3.375 gm IVPB Q8H #84 vial Discharge Medication List Piperacillin-Tazobactam [Zosyn] 3.375 gm IVPB Q8H #84 vial 12/15/20 [Rx] Acetaminophen Tab [Tylenol] 1,000 mg PO Q6HR tab 01/14/21 [Rx] Omeprazole 40 mg PO DAILY #30 capsule. 01/14/21 [Rx] Follow up Appointment(s)/Referral(s): [facility], [NON-STAFF] - As Needed [facility], [REFERRING] - As Needed Lennie Price MD [Primary Care Provider] - 1-2 days Patient Instructions/Handouts: How to Stop Smoking (GEN), Colostomy Care (GEN), Abscess Incision and Drainage (ED), Abscess (ED) Activity/Diet/Wound Care/Special Instructions: [facility]. Pending antibx as per ID & clearance. Pending final dc rec., pain management & clearance from surgery. COntinue Ostomy teaching at facility. CBC,BMP in 3 days IS Q1H WA X 10
[2021-01-14] MEDS ORDERED: HYDROcodone/APAP 10-325MG 1 EACH TAB PO PRN (10:43)
[2021-01-14 12:17] VITALS: BP 156/81; PULSE 62; RESP 18; TEMP 97.9
--- NOTE | 2021-01-14 13:09 | P.PN ---
Subjective Progress Note Date: 01/14/21 CHIEF COMPLAINT: Complicated diverticulitis HISTORY OF PRESENT ILLNESS: The patient is a 60 year old female status post diverting left colostomy for complicated pelvic diverticulitis. Patient is complaining of abdominal pain. Each day her pain is improving. However, she does report that the [place] every 8 hours does not last long enough. This has been adjusted to every 6 hours. Patient denies any nausea or vomiting. She did have her ostomy teaching. Her wound VAC dressing was removed. Incision site clean dry and intact. She has stool and air through her ostomy. Tolerating regular diet. Denies any nausea vomiting. Afebrile. WBC 4.8. PHYSICAL EXAM: VITAL SIGNS: Reviewed GENERAL: Well-developed in no acute distress. HEENT: No sclera icterus. Extraocular movements grossly intact. Moist buccal mucosa. Head is atraumatic, normocephalic. Hears conversational speech. No nasal drain age. NECK: Supple without lymphadenopathy. CHEST: Non-labored respirations and equal bilateral excursions. CARDIOVASCULAR: Palpable 2+ radial pulses. ABDOMEN: Soft. Nondistended. Incision site clean dry and intact. Ostomy with small amount of stool present MUSCULOSKELETAL: No clubbing or cyanosis. NEUROLOGIC: No focal or lateralizing signs. Cranial nerves II through XII grossly intact. PSYCH: Appropriate affect. Alert and oriented to person, place and time. SKIN: Well perfused. Good skin turgor. ASSESSMENT: 1. Complicated sigmoid diverticulitis with abscess 2. Failed outpatient management 3. Tobacco cessation and counseling over 3 minutes PLAN: -Patient can be discharge from surgical standpoint -Discharge antibiotics per ID recommendations -Continue regular diet -Encourage patient to ambulate -Encourage patient to use incentive spirometer -Continue pain medications as needed Physician Office Employee note has been reviewed by physician. Signing provider agrees with the documented findings, assessment, and plan of care. Objective - Vital Signs Vital signs: Vital Signs Temp 97.9 F 01/14/21 11:35 Pulse 62 01/14/21 11:35 Resp 18 01/14/21 11:35 BP 156/81 01/14/21 11:35 Pulse Ox 96 01/14/21 11:35 Intake & Output 01/13/21 01/14/21 01/14/21 18:59 06:59 18:59 Intake Total 1100 Output Total 300 Balance -300 1100 Intake: Intake, IV Titration 1100 Amount Magnesium Sulfate-D5w Pmx 100 1 gm In Dextrose/Water 1 100ml.bag @ 100 mls/hr IVPB Q1H [facility] Rx#: [id number] Piperacillin-Tazobactam 3 100 .375 gm In Sodium Chloride 0.9% 100 ml @ 25 mls/hr IVPB Q8HR [id number] Rx# :[id number] Sodium Chloride 0.9% 1, 900 000 ml @ 75 mls/hr IV . [id number] [facility] Rx#:[id number] Output: Urine 300 Uretheral ([place]arton) 300 Other: Voiding Method Indwelling Catheter Indwelling Catheter # Voids 2 - Labs CBC & Chem 7: 01/14/21 06:05 01/14/21 06:05 Labs: Abnormal Lab Results - Last 24 Hours (Table) 01/13/21 01/14/21 01/14/21 Range/Units 05:18 06:05 06:05 RDW 16.5 H (11.5-15.5) % Chloride 109 H (98-107) mmol/L BUN 7.0 L (9.0-27.0) mg/dL Creatinine 0.5 L 0.50 L (0.6-1.5) mg/dL Glucose 113 H (70-110) mg/dL Total Bilirubin 0.1 L (0.2-1.3) mg/dL Albumin 3.50 L 3.2 L (3.80-4.90) g/dL Albumin/Globulin Ratio 1.25 L (1.60-3.17) g/dL Microbiology - Last 24 Hours (Table) 01/09/21 17:25 Anaerobic Culture - Final Other - Other 01/09/21 17:25 Anaerobic Culture - Final Other - Other
--- NOTE | 2021-01-15 09:45 | PN ---
PROGRESS NOTE DATE OF SERVICE: 01/14/2021 REASON FOR FOLLOWUP: Complicated diverticulitis. INTERVAL HISTORY: Patient is afebrile. The patient is breathing comfortably. Denies having any chest pain. No shortness of breath, cough. Abdominal pain is currently controlled. PHYSICAL EXAMINATION: Blood pressure 150/81 with a temperature 97.9. She is 93% on room air. General description is a middle-aged female lying in bed in no distress. Respiratory System: Unlabored breathing, clear to auscultation anteriorly. Heart: S1, S2. Regular rate and rhythm. Abdomen soft, no tenderness. LABORATORY DATA: Hemoglobin is ( ), white count 4.8, BUN of 9, creatinine ( ). Abdominal culture has been negative. DIAGNOSTIC IMPRESSION AND PLAN: Patient with complicated diverticulitis. Abdominal culture has been negative for resistant pathogen. ( ). MMODL / IJN: [id number] /
== END 2021-01-14 18:19 | DRG 330 ==
LOC: EC 12:37 → 5NMEDONC 16:13
PROVIDERS: ADMIT Family Medicine; ATTEND Family Medicine
PROC: 0DBM0ZZ Excision of Descending Colon, Open Approach (ICD-10-PCS; 2021-01-09)
PROC: 0D1M0Z4 Bypass Descending Colon to Cutaneous, Open Approach (ICD-10-PCS; 2021-01-09)
PROC: 0DBN0ZZ Excision of Sigmoid Colon, Open Approach (ICD-10-PCS; principal; 2021-01-09 15:45)
DX: K57.21 Diverticulitis of large intestine with perforation and abscess with bleeding (principal); R45.851 Suicidal ideations; N82.3 Fistula of vagina to large intestine; N32.1 Vesicointestinal fistula; R18.8 Other ascites; Q43.8 Other specified congenital malformations of intestine; E78.5 Hyperlipidemia, unspecified; J44.9 Chronic obstructive pulmonary disease, unspecified; M79.7 Fibromyalgia; I10 Essential (primary) hypertension; Z86.711 Personal history of pulmonary embolism; Z87.891 Personal history of nicotine dependence; Z82.49 Family history of ischemic heart disease and other diseases of the circulatory system; Z80.49 Family history of malignant neoplasm of other genital organs; Z82.0 Family history of epilepsy and other diseases of the nervous system; Z20.822 Contact with and (suspected) exposure to COVID-19; Z80.6 Family history of leukemia; R31.29 Other microscopic hematuria; Z90.710 Acquired absence of both cervix and uterus; K21.9 Gastro-esophageal reflux disease without esophagitis; Z72.0 Tobacco use; Z91.19 Patient's noncompliance with other medical treatment and regimen; G89.4 Chronic pain syndrome; I67.1 Cerebral aneurysm, nonruptured; F32.9 Major depressive disorder, single episode, unspecified; E87.6 Hypokalemia; F41.9 Anxiety disorder, unspecified; Z80.1 Family history of malignant neoplasm of trachea, bronchus and lung; G62.9 Polyneuropathy, unspecified; N73.9 Female pelvic inflammatory disease, unspecified; M41.9 Scoliosis, unspecified; F12.10 Cannabis abuse, uncomplicated
CPT/HCPCS: 36415; 74177; 80048; 80053; 80323; 81001; 83605; 83690; 83735; 84132; 85025; 86850; 86900; 86901; 87040; 87070; 87075; 87086; 87205; 87635; 94760; 96361; 96374; 96375; 99285

== ENCOUNTER 2021-01-27 20:01 | Inpatient (IN) | payer OTHER ==
[2021-01-27] MEDS ORDERED: SODIUM CHLORIDE 0.9% 1,000 ML IV STA (20:50)
[2021-01-27] MEDS ORDERED: MORPHINE SULFATE 4 MG/ML SYRINGE IV STA (20:50)
[2021-01-27] MEDS ORDERED: ONDANSETRON 4 MG/2 ML VIAL IVP STA (20:50)
[2021-01-27] MEDS ORDERED: PANTOPRAZOLE 40 MG/10 ML VIAL IVP STA (20:50)
[2021-01-27 21:09] LABS: Anisocytosis Slight; Basophils % (A) 0 %; Eosinophils # (A) 0.2 k/uL (0-0.7); Eosinophils % (A) 1 %; HCT 44.8 % (34.0-46.0); HGB 14.3 gm/dL (11.4-16.0); Lymphocytes # (A) 1.4 k/uL (1.0-4.8); Lymphocytes % (A) 8 %; MCH 27.9 pg (25.0-35.0); MCV 87.2 fL (80.0-100.0); Mean Platelet Volume 6.7; Monocytes # (A) 0.4 k/uL (0-1.0); Monocytes % (A) 2 %; Neutrophils # (A) 16.2 k/uL (1.3-7.7); Neutrophils % (A) 88 %; Platelet Count 360 k/uL (150-450); RBC 5.14 m/uL (3.80-5.40); WBC 18.4 k/uL (3.8-10.6)
[2021-01-27 21:16] LABS: Appearance,Urine Cloudy (Clear); Bilirubin,Urine Negative (Negative); Blood,Urine Small (Negative); Color,Urine Yellow; Glucose,Urine (UA) Negative (Negative); Ketones,Urine Negative (Negative); Leukocyte Esterase,Urine Large (Negative); Nitrite,Urine Negative (Negative); Protein,Urine Trace (Negative); Urobilinogen,Urine <2.0 mg/dL (<2.0)
[2021-01-27 21:26] LABS: ALT 18 U/L (4-34); AST 25 U/L (14-36); African American GFR (CKD) >90 (>60 ml/min/1.73 sqM); Albumin 4.3 g/dL (3.5-5.0); Alkaline Phosphatase 71 U/L (38-126); Amylase 107 U/L (30-110); Anion Gap 11 mmol/L; Blood Urea Nitrogen 20 mg/dL (7-17); Calcium 10.2 mg/dL (8.4-10.2); Carbon Dioxide 23 mmol/L (22-30); Chloride 104 mmol/L (98-107); Glucose 143 mg/dL (74-99); Lipase 469 U/L (23-300); Non-African American GFR(CKD) >90 (>60 ml/min/1.73 sqM); Potassium 4.4 mmol/L (3.5-5.1); Sodium 138 mmol/L (137-145); Total Bilirubin 0.6 mg/dL (0.2-1.3); Total Protein 7.6 g/dL (6.3-8.2)
--- NOTE | 2021-01-27 21:53 | ED ---
Abdominal Pain HPI - General Chief Complaint: Abdominal Pain Stated Complaint: Post op Abd pain Time Seen by Provider: 01/27/21 20:44 Source: patient Mode of arrival: ambulatory Limitations: no limitations - History of Present Illness Initial Comments: 60-year-old female presents to emergency Department with chief complaint of abdominal pain. Patient had a colostomy performed by Dr. Jones about 3 weeks ago secondary to recurrent diverticulitis. Patient reports her last today she developed right-sided abdominal pain without any radiation. Seems to be exacerbated after having certain movements. She does report some nausea but denies any vomiting. States the ostomy is otherwise functioning well. She denies any vaginal or urinary symptoms. Denies any fevers or chills. - Related Data Home Medications Medication Instructions Recorded Confirmed Multivitamins, Thera [Multivitamin 1 tab PO DAILY 01/27/21 01/27/21 (formulary)] Allergies Allergy/AdvReac Type Severity Reaction Status Date / Time ibuprofen AdvReac Abdominal Verified 01/27/21 22:15 Pain Review of Systems ROS Statement: Those systems with pertinent positive or pertinent negative responses have been documented in the HPI. ROS Other: All systems not noted in ROS Statement are negative. Past Medical History Past Medical History: Asthma, COPD, Fibromyalgia, Hyperlipidemia, Hypertension, Musculoskeletal Disorder, Osteoarthritis (OA), Pulmonary Embolus (PE) Additional Past Medical History / Comment(s): Pancreatitis, chronic pain, DDD, DJD, cervical/back pain/bilateral scoliosis, spondylosis, neuropathy bilat hands and feet, pulmonary embolism R lung, brain aneurysm being monitored - last 2019, diverticulosis. Recent CT scan shows mass in colon. History of Any Multi-Drug Resistant Organisms: None Reported Past Surgical History: Hysterectomy, Tubal Ligation Additional Past Surgical History / Comment(s): D&C, angiograms d/t cerebral aneurysm. Past Anesthesia/Blood Transfusion Reactions: No Reported Reaction, Motion Sickness Additional Past Anesthesia/Blood Transfusion Reaction / Comment(s): motion sick as a child Past Psychological History: Anxiety, Depression Smoking Status: Former smoker Past Alcohol Use History: None Reported Past Drug Use History: Marijuana - Past Family History Mother Family Medical History: Cancer, Coronary Artery Disease (CAD) Additional Family Medical History / Comment(s): Mother had uterine cancer. Sister(s) Family Medical History: Cancer, Neurologic Disorder Additional Family Medical History / Comment(s): parkinsonism; uterine, lung cancer. Brother(s) Family Medical History: Cancer Additional Family Medical History / Comment(s): Pt had 2 brothers with cancer - 1 leukemia. General Exam Limitations: no limitations General appearance: alert, in no apparent distress Head exam: Present: atraumatic, normocephalic, normal inspection Eye exam: Present: normal appearance, PERRL, EOMI Pupils: Present: normal accommodation ENT exam: Present: normal exam, normal oropharynx, mucous membranes moist Neck exam: Present: normal inspection, full ROM. Absent: tenderness Respiratory exam: Present: normal lung sounds bilaterally. Absent: respiratory distress, wheezes, rales, rhonchi, stridor, chest wall tenderness, accessory muscle use Cardiovascular Exam: Present: regular rate, normal rhythm, normal heart sounds. Absent: systolic murmur, diastolic murmur GI/Abdominal exam: Present: soft, tenderness (Right-sided abdominal tenderness). Absent: distended, guarding, rebound, rigid Extremities exam: Present: normal inspection, full ROM. Absent: tenderness Back exam: Present: normal inspection, full ROM Neurological exam: Present: alert, oriented X3 Psychiatric exam: Present: normal affect, normal mood Skin exam: Present: warm, dry, intact, normal color Course Vital Signs 01/27/21 01/27/21 20:08 22:38 Temperature 98.7 F Pulse Rate 102 H 94 Respiratory 20 18 Rate Blood Pressure 111/72 129/79 O2 Sat by Pulse 96 95 Oximetry Medical Decision Making - Medical Decision Making 60-year-old female presents to emergency Department with chief complaint of abdominal pain. On physical examination, right-sided abdominal tenderness. Liver to work reveals leukocytosis of 18,000. CT abdomen and pelvis reveals an ileus with no transition point. Also diverticulitis which appears to have improved compared to before. Her vital signs are within normal limits. I discussed the case with who does not recommend antibiotics at this time. I spoke to Dr. nixon who will admit patient and have Dr. Jones on consult. - Lab Data Result diagrams: 01/27/21 20:59 01/27/21 20:59 Lab Results 01/27/21 01/27/21 01/27/21 Range/Units 20:59 20:59 20:59 WBC 18.4 H (3.8-10.6) k/uL RBC 5.14 (3.80-5.40) m/uL Hgb 14.3 (11.4-16.0) gm/dL Hct 44.8 (34.0-46.0) % MCV 87.2 (80.0-100.0) fL MCH 27.9 (25.0-35.0) pg MCHC 32.0 (31.0-37.0) g/dL RDW 17.0 H (11.5-15.5) % Plt Count 360 (150-450) k/uL MPV 6.7 Neutrophils % 88 % Lymphocytes % 8 % Monocytes % 2 % Eosinophils % 1 % Basophils % 0 % Neutrophils # 16.2 H (1.3-7.7) k/uL Lymphocytes # 1.4 (1.0-4.8) k/uL Monocytes # 0.4 (0-1.0) k/uL Eosinophils # 0.2 (0-0.7) k/uL Basophils # 0.0 (0-0.2) k/uL Anisocytosis Slight Sodium 138 (137-145) mmol/L Potassium 4.4 (3.5-5.1) mmol/L Chloride 104 (98-107) mmol/L Carbon Dioxide 23 (22-30) mmol/L Anion Gap 11 mmol/L BUN 20 H (7-17) mg/dL Creatinine 0.44 L (0.52-1.04) mg/dL Est GFR (CKD-EPI)AfAm >90 (>60 ml/min/1.73 sqM) Est GFR (CKD-EPI)NonAf >90 (>60 ml/min/1.73 sqM) Glucose 143 H (74-99) mg/dL Calcium 10.2 (8.4-10.2) mg/dL Total Bilirubin 0.6 (0.2-1.3) mg/dL AST 25 (14-36) U/L ALT 18 (4-34) U/L Alkaline Phosphatase 71 (38-126) U/L Total Protein 7.6 (6.3-8.2) g/dL Albumin 4.3 (3.5-5.0) g/dL Amylase 107 (30-110) U/L Lipase 469 H (23-300) U/L Urine Color Yellow Urine Appearance Cloudy H (Clear) Urine pH 5.0 (5.0-8.0) Ur Specific [place] 1.020 (1.001-1.035) Urine Protein Trace H (Negative) Urine Glucose (UA) Negative (Negative) Urine Ketones Negative (Negative) Urine Blood Small H (Negative) Urine Nitrite Negative (Negative) Urine Bilirubin Negative (Negative) Urine Urobilinogen <2.0 (<2.0) mg/dL Ur Leukocyte Esterase Large H (Negative) Disposition Clinical Impression: Diverticulitis, Ileus Disposition: ADMITTED IP TO THIS HOSP Condition: Stable Is patient prescribed a controlled substance at d/c from ED?: No Time of Disposition: 23:33
--- NOTE | 2021-01-27 22:28 | CT ---
EXAMINATION TYPE: CT abdomen pelvis w con DATE OF EXAM: 01/27/2021 COMPARISON: 01/05/2021 HISTORY: abdominal pain post colonoscopy CT DLP: 1157.6 mGycm Automated exposure control for dose reduction was used. CONTRAST: Performed with IV Contrast, patient injected with 100 mL of Isovue 300. There is mild atelectasis at the lung bases. Heart size is normal. There is no pericardial effusion. There is no pleural effusion. Liver spleen stomach pancreas gallbladder appear normal. The bile ducts are not dilated. There is no adrenal mass. Kidneys show satisfactory contrast opacification. There is no hydronephrosi s. Appendix appears normal. There is no retroperitoneal adenopathy. Ureters are not dilated. Delayed images show normal renal excretion. The bladder distends smoothly. There is no inguinal hernia. There is some wall thickening of the mid sigmoid colon. There are sigmoid diverticula. There are some flui d-filled distended small bowel loops in the lower abdomen. These measure up to 3.1 cm. No significant small bowel wall thickening seen. There is a descending colostomy. There is no sign of free air. The lumbar vertebra have normal alignment. There is narrowing of the L4-5 and L5-S1 disc spaces with spurring. There is no compression fracture. The bony pelvis is intact. The hip joints appear intact. There is no hip dysplasia. IMPRESSION: Wall thickening of the sigmoid colon with diverticula. This is consistent with colitis or diverticuli tis and is improved compared to last exam. There is a descending colostomy. There are some distended small bowel loops in the lower abdomen likely related to ileus. No transition point seen. Normal appe ndix. No free air. There is increasing atelectasis at the lung bases compared to old exam.
[2021-01-27] MEDS ORDERED: LORazepam 2 MG/ML INJ IV PRN (23:28)
[2021-01-27] MEDS ORDERED: NALOXONE 0.4 MG/ML 1 ML VIAL IV PRN (23:28)
[2021-01-27] MEDS: SODIUM CHLORIDE 0.9% 1,000 ML IV SCH (23:38)
[2021-01-28] MEDS: MORPHINE SULFATE 4 MG/ML SYRINGE IV PRN ×5 (03:27→21:17)
[2021-01-28] MEDS: PANTOPRAZOLE 40 MG/10 ML VIAL IV SCH (07:34)
[2021-01-28 11:46] LABS: Anisocytosis Slight; Basophils % (A) 0 %; Eosinophils # (A) 0.1 k/uL (0-0.7); Eosinophils % (A) 0 %; HCT 39.6 % (34.0-46.0); HGB 13.2 gm/dL (11.4-16.0); Lymphocytes # (A) 1.9 k/uL (1.0-4.8); Lymphocytes % (A) 13 %; MCH 28.9 pg (25.0-35.0); MCHC 33.3 g/dL (31.0-37.0); MCV 86.7 fL (80.0-100.0); Mean Platelet Volume 6.4; Monocytes # (A) 0.5 k/uL (0-1.0); Monocytes % (A) 4 %; Neutrophils % (A) 82 %; Platelet Count 307 k/uL (150-450); RBC 4.56 m/uL (3.80-5.40); WBC 14.5 k/uL (3.8-10.6)
--- NOTE | 2021-01-28 12:55 | P.GSCN ---
<Kayla Mera - Last Filed: 01/28/21 12:43> History of Present Illness Consult date: 01/28/21 History of present illness: CHIEF COMPLAINT: Abdominal pain HISTORY OF PRESENT ILLNESS: This is a 60-year-old female with history of sigmoid diverticulitis with abscess and colovesical fistula she is status post descending colostomy creation with devitalized rectum and Cummings's procedure on 01/09/[address] Leo. Patient was discharged on 01/14/2021. Patient reports that she had been on oral antibiotics at home. She reports her pain was controlled at time of discharge. Patient presented to the emergency room with complaints of pain at her incision site and ostomy site. She reports that the pain started after she had been coughing. No evidence of infection at her incision site. Her ostomy is functioning. She does admit to some nausea. She denies any fever, chills or sweats. Denies any vomiting. PAST MEDICAL HISTORY: See list. PAST SURGICAL HISTORY: See list. MEDICATIONS: See list. ALLERGIES: See list. SOCIAL HISTORY: No illicit drug use. REVIEW OF SYSTEMS: CONSTITUTIONAL: Denies fever or chills. HEENT: Denies blurred vision, vision changes, or eye pain. Denies hemoptysis ENDOCRINE: Denies heat or cold intolerance. CARDIOVASCULAR: Denies chest pain or pressure. RESPIRATORY: No shortness of breath. GASTROINTESTINAL: Please refer to HPI NEURO: Denies history of seizures. PSYCH: No depression or suicidal ideation HEMATOLOGIC: Denies bleeding disorders. LYMPHATIC: The patient denies any lumps and bumps around the neck. GENITOURINARY: Denies any blood in urine or increased urinary frequency. MUSCULOSKELETAL: Denies myalgias. Denies joint swelling. Denies decreased range of motion beyond patients baseline. SKIN: Denies pruitis. Denies rash. PHYSICAL EXAM: VITAL SIGNS: Reviewed GENERAL: Well-developed in no acute distress. HEENT: No sclera icterus. Extraocular movements grossly intact. Moist buccal mucosa. Head is atraumatic, normocephalic. Hears conversational speech. No nasal drainage. NECK: Supple without lymphadenopathy. CHEST: Non-labored respirations and equal bilateral excursions. CARDIOVASCULAR: Palpable 2+ radial pulses. ABDOMEN: Soft. Nondistended. Incision site clean dry and intact. No evidence of infection. Ostomy has soft brown stool present MUSCULOSKELETAL: No clubbing or cyanosis. NEUROLOGIC: No focal or lateralizing signs. Cranial nerves II through XII grossly intact. PSYCH: Appropriate affect. Alert and oriented to person, place and time. SKIN: Well perfused. Good skin turgor. LABORATORY DATA: WBC has come down from 18.4-14.5 hemoglobin 13.2 platelets 307 sodium 138 potassium 4.4 BUN 20 creatinine 0.44 LFTs normal Lipase 469 Urinalysis small blood and large leukocyte esterase IMAGING: Computed tomography scan abdomen and pelvis show wall thickening of the sigmoid colon with diverticula. This is consistent with colitis or diverticulitis and is improved compared to last exam. There is a descending colostomy. There is some distended small bowel loops in the lower abdomen likely related to ileus. No transition point seen. Normal appendix. No free air. There is increasing atelectasis at the lung bases compared to old exam. ASSESSMENT: 1. Abdominal pain at incision site and ostomy likely secondary to straining from patient's cough 2. Sigmoid diverticulitis with abscess and colovesical fistula she is status post descending colostomy creation with devitalized rectum and Cummings's procedure on 01/09/2021 3. Leukocytosis 4. Atelectasis 5. Tobacco use disorder 6. COPD 7. Fibromyalgia 8. History of pulmonary embolism 9. History of brain aneurysm 10. History of pancreatitis 11. Depressive disorder PLAN: -Continue IV fluids. Patient was given IV fluid bolus in the ER -Check urine nicotine level -Ordered incentive spirometer for atelectasis Thank you for this consultation Physician Supervisor [employer] note has been reviewed by physician. Signing provider agrees with the documented findings, assessment, and plan of care. Past Medical History Past Medical History: Asthma, COPD, Fibromyalgia, Hyperlipidemia, Hypertension, Musculoskeletal Disorder, Osteoarthritis (OA), Pulmonary Embolus (PE) Additional Past Medical History / Comment(s): Pancreatitis, chronic pain, DDD, DJD, cervical/back pain/bilateral scoliosis, spondylosis, neuropathy bilat hands and feet, pulmonary embolism R lung, brain aneurysm being monitored - last 2019, diverticulosis. Recent CT scan shows mass in colon. History of Any Multi-Drug Resistant Organisms: None Reported Past Surgical History: Hysterectomy, Tubal Ligation Additional Past Surgical History / Comment(s): D&C, angiograms d/t cerebral aneurysm. Past Anesthesia/Blood Transfusion Reactions: No Reported Reaction, Motion Sickness Additional Past Anesthesia/Blood Transfusion Reaction / Comm: motion sick as a child Past Psychological History: Anxiety, Depression Additional Psychological History / Comment(s): Pt lives with her son and his fiancee. She has a cane but does not need to use it. She drives. Smoking Status: Former smoker Past Alcohol Use History: None Reported Additional Past Alcohol Use History / Comment(s): Pt started smoking in 1977, 1/2 ppd smoker, down to few cigarettes daily. She drank heavily in the past but has not drank alcohol since 2009. Past Drug Use History: Marijuana Additional Drug Use History / Comment(s): uses daily - Past Family History Mother Family Medical History: Cancer, Coronary Artery Disease (CAD) Additional Family Medical History / Comment(s): Mother had uterine cancer. Sister(s) Family Medical History: Cancer, Neurologic Disorder Additional Family Medical History / Comment(s): parkinsonism; uterine, lung cancer. Brother(s) Family Medical History: Cancer Additional Family Medical History / Comment(s): Pt had 2 brothers with cancer - 1 leukemia. Medications and Allergies Home Medications Medication Instructions Recorded Confirmed Type Multivitamins, Thera [Multivitamin 1 tab PO DAILY 01/27/21 01/27/21 History (formulary)] Allergies Allergy/AdvReac Type Severity Reaction Status Date / Time ibuprofen AdvReac Abdominal Verified 01/27/21 22:15 Pain Surgical - Exam Vital Signs Temp Pulse Resp BP Pulse Ox 98.7 F 102 H 20 111/72 96 01/27/21 20:08 01/27/21 20:08 01/27/21 20:08 01/27/21 20:08 01/27/21 20:08 Results - Labs 01/28/21 11:22 01/27/21 20:59 Abnormal Lab Results - Last 24 Hours (Table) 01/27/21 01/27/21 01/27/21 Range/Units 20:59 20:59 20:59 WBC 18.4 H (3.8-10.6) k/uL RDW 17.0 H (11.5-15.5) % Neutrophils # 16.2 H (1.3-7.7) k/uL BUN 20 H (7-17) mg/dL Creatinine 0.44 L (0.52-1.04) mg/dL Glucose 143 H (74-99) mg/dL Lipase 469 H (23-300) U/L Urine Appearance Cloudy H (Clear) Urine Protein Trace H (Negative) Urine Blood Small H (Negative) Ur Leukocyte Esterase Large H (Negative) 01/28/21 Range/Units 11:22 WBC 14.5 H (3.8-10.6) k/uL RDW 17.0 H (11.5-15.5) % Neutrophils # 12.0 H (1.3-7.7) k/uL BUN (7-17) mg/dL Creatinine (0.52-1.04) mg/dL Glucose (74-99) mg/dL Lipase (23-300) U/L Urine Appearance (Clear) Urine Protein (Negative) Urine Blood (Negative) Ur Leukocyte Esterase (Negative) Diabetes panel 01/27/21 Range/Units 20:59 Sodium 138 (137-145) mmol/L Potassium 4.4 (3.5-5.1) mmol/L Chloride 104 (98-107) mmol/L Carbon Dioxide 23 (22-30) mmol/L BUN 20 H (7-17) mg/dL Creatinine 0.44 L (0.52-1.04) mg/dL Glucose 143 H (74-99) mg/dL Calcium 10.2 (8.4-10.2) mg/dL AST 25 (14-36) U/L ALT 18 (4-34) U/L Alkaline Phosphatase 71 (38-126) U/L Total Protein 7.6 (6.3-8.2) g/dL Albumin 4.3 (3.5-5.0) g/dL Calcium panel 01/27/21 Range/Units 20:59 Calcium 10.2 (8.4-10.2) mg/dL Albumin 4.3 (3.5-5.0) g/dL Pituitary panel 01/27/21 Range/Units 20:59 Sodium 138 (137-145) mmol/L Potassium 4.4 (3.5-5.1) mmol/L Chloride 104 (98-107) mmol/L Carbon Dioxide 23 (22-30) mmol/L BUN 20 H (7-17) mg/dL Creatinine 0.44 L (0.52-1.04) mg/dL Glucose 143 H (74-99) mg/dL Calcium 10.2 (8.4-10.2) mg/dL Adrenal panel 01/27/21 Range/Units 20:59 Sodium 138 (137-145) mmol/L Potassium 4.4 (3.5-5.1) mmol/L Chloride 104 (98-107) mmol/L Carbon Dioxide 23 (22-30) mmol/L BUN 20 H (7-17) mg/dL Creatinine 0.44 L (0.52-1.04) mg/dL Glucose 143 H (74-99) mg/dL Calcium 10.2 (8.4-10.2) mg/dL Total Bilirubin 0.6 (0.2-1.3) mg/dL AST 25 (14-36) U/L ALT 18 (4-34) U/L Alkaline Phosphatase 71 (38-126) U/L Total Protein 7.6 (6.3-8.2) g/dL Albumin 4.3 (3.5-5.0) g/dL <Candice Leo - Last Filed: 01/28/21 19:30> History of Present Illness History of present illness: As above. CHIEF COMPLAINT: Abdominal pain HISTORY OF PRESENT ILLNESS: The patient is a 60 year old female status post diverting descending colostomy less than 1 month ago. She was discharged home over 1 week ago. She reports that she was feeling well at home and tolerating diet with a functioning ostomy. She reports new abdominal pain along her incision and ostomy after large cough for more than 2 days. She has been on antibiotics for colovesical fistula due to diverticulitis. For the severity of her pain, she presented to the emergency room. Strict tobacco cessation was advised for risk of postoperative complications. She is admitted for presumed ileus. PAST MEDICAL HISTORY: See list and reviewed PAST SURGICAL HISTORY: See list and reviewed MEDICATIONS: See list and reviewed ALLERGIES: See list and reviewed SOCIAL HISTORY: See list and reviewed FAMILY HISTORY: See list and reviewed REVIEW OF ORGAN SYSTEMS: CONSTITUTIONAL: No fevers or chills. EYES: Denies any trouble with vision. No glasses. HEENT: No difficulties with hearing. No nosebleeds. RESPIRATORY: Denies recent pneumonia. Past history of pulmonary embolism. Has tobacco abuse disorder. Has asthma and chronic obstructive pulmonary disease CARDIOVASCULAR: Denies any chest pain, palpitations, or recent heart attacks. Has hyperlipidemia. Has hypertensive heart disease. GASTROINTESTINAL: Denies fatty food intolerance. Has change in bowel habits and gas bloat. Has chronic diverticulitis including past pancreatitis. Last colonoscopy November 2020 without neoplasm. GENITOURINARY: Denies any blood in urine or increased urinary frequency. Has h ysterectomy and tubal ligation. NEUROLOGICAL: Has neuropathy of the bilateral hands and feet. No seizure disorders or headaches. History of brain aneurysm. MUSCULOSKELETAL: Has back pain, stiffness or joint arthritis. Has fibromyalgia. Has scoliosis. SKIN: No current skin cancer. No rash. PSYCHIATRIC: Has anxiety and depression. Recent psychosis and suicidal watch upon last hospitalization. ENDOCRINE: Denies current thyroid disorders. Denies any blood sugar glucose intolerance. HEME/LYMPHATIC: Denies any lumps and bumps around the neck. Past deep venous thrombosis. ALLERGY/IMMUNOLOGY: No immunoglobulin therapy. No immune deficiencies. BREAST: Denies current breast lumps, pain or nipple discharge. PHYSICAL EXAM: VITALS: Reviewed CONSTITUTIONAL: Well developed and in no acute distress. Patient is nontoxic and without sepsis. EYES: Conjuctivae without sclera icterus. Pupils are equally round and reactive to light. Extraocular movements grossly intact. HEAD, EARS, NOSE, THROAT: Moist buccal mucosa. Head is atraumatic, normocephalic. Hears conversational speech. No nasal drainage. NECK: Supple. No JV distention. No thyroidomegaly. RESPIRATORY: Non-labored respirations and equal bilateral excursions. No gross wheezes. CARDIOVASCULAR: Regular rate and rhythm. Palpable 2+ radial pulses. ABDOMEN: Soft. Ostomy pink, patent, functioning with stool and flatus. Midline incision without redness or dehiscence and granulating. MUSCULOSKELETAL: Nail and fingers with good capillary refill. SKIN: Warm and well perfused with good skin turgor. NEUROLOGIC: Cranial nerves II through XII grossly intact. No focal or lateralizing signs. PSYCH: Appropriate affect. Alert and oriented to person, place and time. Displays appropriate insight. CLINCAL LABS: Reviewed. WBC elevated over 18,000 IMAGING: Independently reviewed CT of the abdomen and pelvis with resolved pr evious abscess of the pelvis. Presence of diverticulosis with ostomy. Post- surgical changes present. No abdominal wall hematoma. RADIOLOGY: Report reviewed of CT of the abdomen and pelvis with ileus. ASSESSMENT: 1. Abdominal pain 2. 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 3. Ileus PLAN: 1. Diet as tolerated 2. IV fluid hydration 3. IV antibiotics for pre-existing diverticulitis 4. Conservative management. Surgical - Exam Vital Signs Temp Pulse Resp BP Pulse Ox 98.7 F 102 H 20 111/72 96 01/27/21 20:08 01/27/21 20:08 01/27/21 20:08 01/27/21 20:08 01/27/21 20:08 Results - Labs 01/28/21 11:22 01/27/21 20:59 Abnormal Lab Results - Last 24 Hours (Table) 01/27/21 01/27/21 01/27/21 Range/Units 20:59 20:59 20:59 WBC 18.4 H (3.8-10.6) k/uL RDW 17.0 H (11.5-15.5) % Neutrophils # 16.2 H (1.3-7.7) k/uL BUN 20 H (7-17) mg/dL Creatinine 0.44 L (0.52-1.04) mg/dL Glucose 143 H (74-99) mg/dL Lipase 469 H (23-300) U/L Urine Appearance Cloudy H (Clear) Urine Protein Trace H (Negative) Urine Blood Small H (Negative) Ur Leukocyte Esterase Large H (Negative) 01/28/21 Range/Units 11:22 WBC 14.5 H (3.8-10.6) k/uL RDW 17.0 H (11.5-15.5) % Neutrophils # 12.0 H (1.3-7.7) k/uL BUN (7-17) mg/dL Creatinine (0.52-1.04) mg/dL Glucose (74-99) mg/dL Lipase (23-300) U/L Urine Appearance (Clear) Urine Protein (Negative) Urine Blood (Negative) Ur Leukocyte Esterase (Negative) Diabetes panel 01/27/21 Range/Units 20:59 Sodium 138 (137-145) mmol/L Potassium 4.4 (3.5-5.1) mmol/L Chloride 104 (98-107) mmol/L Carbon Dioxide 23 (22-30) mmol/L BUN 20 H (7-17) mg/dL Creatinine 0.44 L (0.52-1.04) mg/dL Glucose 143 H (74-99) mg/dL Calcium 10.2 (8.4-10.2) mg/dL AST 25 (14-36) U/L ALT 18 (4-34) U/L Alkaline Phosphatase 71 (38-126) U/L Total Protein 7.6 (6.3-8.2) g/dL Albumin 4.3 (3.5-5.0) g/dL Calcium panel 01/27/21 Range/Units 20:59 Calcium 10.2 (8.4-10.2) mg/dL Albumin 4.3 (3.5-5.0) g/dL Pituitary panel 01/27/21 Range/Units 20:59 Sodium 138 (137-145) mmol/L Potassium 4.4 (3.5-5.1) mmol/L Chloride 104 (98-107) mmol/L Carbon Dioxide 23 (22-30) mmol/L BUN 20 H (7-17) mg/dL Creatinine 0.44 L (0.52-1.04) mg/dL Glucose 143 H (74-99) mg/dL Calcium 10.2 (8.4-10.2) mg/dL Adrenal panel 01/27/21 Range/Units 20:59 Sodium 138 (137-145) mmol/L Potassium 4.4 (3.5-5.1) mmol/L Chloride 104 (98-107) mmol/L Carbon Dioxide 23 (22-30) mmol/L BUN 20 H (7-17) mg/dL Creatinine 0.44 L (0.52-1.04) mg/dL Glucose 143 H (74-99) mg/dL Calcium 10.2 (8.4-10.2) mg/dL Total Bilirubin 0.6 (0.2-1.3) mg/dL AST 25 (14-36) U/L ALT 18 (4-34) U/L Alkaline Phosphatase 71 (38-126) U/L Total Protein 7.6 (6.3-8.2) g/dL Albumin 4.3 (3.5-5.0) g/dL Assessment and Plan (1) Colostomy in place Current Visit: Yes Status: Acute Code(s): Z93.3 - COLOSTOMY STATUS SNOMED Code(s): 839416194 (2) Diverticulitis Current Visit: Yes Status: Acute Code(s): K57.92 - DVTRCLI OF INTEST, PART UNSP, W/O PERF OR ABSCESS W/O BLEED SNOMED Code(s): 887710711 (3) Ileus Current Visit: Yes Status: Acute Code(s): K56.7 - ILEUS, UNSPECIFIED SNOMED Code(s): 880500141
[2021-01-28] MEDS: ONDANSETRON 4 MG/2 ML VIAL IVP PRN ×2 (13:46→21:29)
[2021-01-28] MEDS: SODIUM CHLORIDE 0.9% 1,000 ML IV SCH ×2 (15:24→16:54)
--- NOTE | 2021-01-28 23:38 | P.HPIM ---
History of Present Illness H&P Date: 01/28/21 Chief Complaint: abdominal pain Kamryn Martin is a 60 yo F with history of recent diverticulitis with abscess s/p colectamy and ostomy creation who was recently discharged a few weeks ago. She states that over the past few days she has been having more abdominal pain around the RLQ and near her ventral incision. She continues to have good ostomy output. No nausea, vomiting, fevers or chills. She did complete her abx a few weeks ago. On presentation vitals stable, WBC 18k, lipase 400, CT abd/pelvis no acute process. Review of Systems All systems: negative Constitutional: Denies chills, Denies fever Eyes: denies blurred vision, denies pain Ears, nose, mouth and throat: Denies headache, Denies sore throat Cardiovascular: Denies chest pain, Denies shortness of breath Respiratory: Denies cough Gastrointestinal: Reports abdominal pain, Denies diarrhea, Denies nausea, Denies vomiting Genitourinary: Denies dysuria, Denies hematuria Musculoskeletal: Denies myalgias Integumentary: Denies pruritus, Denies rash Neurological: Denies numbness, Denies weakness Psychiatric: Denies anxiety, Denies depression Endocrine: Denies fatigue, Denies weight change Past Medical History Past Medical History: Asthma, COPD, Fibromyalgia, Hyperlipidemia, Hypertension, Musculoskeletal Disorder, Osteoarthritis (OA), Pulmonary Embolus (PE) Additional Past Medical History / Comment(s): Pancreatitis, chronic pain, DDD, DJD, cervical/back pain/bilateral scoliosis, spondylosis, neuropathy bilat hands and feet, pulmonary embolism R lung, brain aneurysm being monitored - last 2019, diverticulosis. Recent CT scan shows mass in colon. History of Any Multi-Drug Resistant Organisms: None Reported Past Surgical History: Hysterectomy, Tubal Ligation Additional Past Surgical History / Comment(s): D&C, angiograms d/t cerebral aneurysm. Past Anesthesia/Blood Transfusion Reactions: No Reported Reaction, Motion Sickness Additional Past Anesthesia/Blood Transfusion Reaction / Comment(s): motion sick as a child Past Psychological History: Anxiety, Depression Additional Psychological History / Comment(s): Pt lives with her son and his fiancee. She has a cane but does not need to use it. She drives. Smoking Status: Former smoker Past Alcohol Use History: None Reported Additional Past Alcohol Use History / Comment(s): Pt started smoking in 1977, 1/2 ppd smoker, down to few cigarettes daily. She drank heavily in the past but has not drank alcohol since 2009. Past Drug Use History: Marijuana Additional Drug Use History / Comment(s): uses daily - Past Family History Mother Family Medical History: Cancer, Coronary Artery Disease (CAD) Additional Family Medical History / Comment(s): Mother had uterine cancer. Sister(s) Family Medical History: Cancer, Neurologic Disorder Additional Family Medical History / Comment(s): parkinsonism; uterine, lung cancer. Brother(s) Family Medical History: Cancer Additional Family Medical History / Comment(s): Pt had 2 brothers with cancer - 1 leukemia. Medications and Allergies Home Medications Medication Instructions Recorded Confirmed Type Multivitamins, Thera [Multivitamin 1 tab PO DAILY 01/27/21 01/27/21 History (formulary)] Allergies Allergy/AdvReac Type Severity Reaction Status Date / Time ibuprofen AdvReac Abdominal Verified 01/27/21 22:15 Pain Physical Exam Vitals: Vital Signs Temp Pulse Pulse Resp BP BP Pulse Ox 01/28/21 19:43 98.8 F 91 16 118/74 92 L 01/28/21 16:44 99.4 F 92 18 123/76 94 L 01/28/21 15:46 98.7 F 81 17 126/69 98 01/28/21 15:00 81 17 126/69 98 01/28/21 14:00 92 17 118/72 98 01/28/21 04:08 92 17 118/72 98 01/28/21 01:01 74 17 129/79 99 Intake and Output 01/28/21 01/28/21 01/29/21 14:59 22:59 06:59 Intake Total 440 Balance 440 Intake: Oral 440 Other: Voiding Method Diaper Diaper Incontinent Incontinent # Voids 1 Weight 74.843 kg General: well nourished, well developed, NAD. Vitals reviewed Eyes: PERRL, EOMI, conjunctiva normal HENT: normocephalic, mucus membranes moist Neck: supple, no JVD Lungs: normal respiratory effort, no wheezes or rales CV: Regular rate and rhythm, no murmur. Peripheral pulses 2+ Abdomen: soft, nondistended, no organomegaly. TTP R sided. ostomy healthy Lymph: no cervical or axillary LAD Skin: warm and dry. Neuro: A&Ox3, normal mood and affect Results CBC & Chem 7: 01/28/21 11:22 01/27/21 20:59 Labs: Abnormal Lab Results - Last 24 Hours (Table) 01/28/21 Range/Units 11:22 WBC 14.5 H (3.8-10.6) k/uL RDW 17.0 H (11.5-15.5) % Neutrophils # 12.0 H (1.3-7.7) k/uL Thrombosis Risk Factor Assmnt - Choose All That Apply Each Factor Represents 1 point: Age 41-60 years Thrombosis Risk Factor Assessment Total Risk Factor Score: 1 Thrombosis Risk Factor Assessment Level: Low Risk Assessment and Plan Plan: 1. Abdominal pain s/p recent colectomy and ostomy creation. Suspect partial SBO vs colitis. Surgery consult. IV fluids, empiric abx. Continue protonix
[2021-01-29] MEDS: MORPHINE SULFATE 4 MG/ML SYRINGE IV PRN ×5 (01:28→21:18)
[2021-01-29] MEDS: PIPERACILLIN-TAZOBACTAM 3.375 GM in SODIUM CHLORIDE 0.9% 100 ML IVPB SCH ×4 (01:34→23:29)
[2021-01-29] MEDS: ONDANSETRON 4 MG/2 ML VIAL IVP PRN ×2 (05:33→21:23)
[2021-01-29] MEDS: PANTOPRAZOLE 40 MG/10 ML VIAL IV SCH (07:49)
--- NOTE | 2021-01-29 12:44 | P.PN ---
<Kayla Mera - Last Filed: 01/29/21 12:51> Subjective Progress Note Date: 01/29/21 CHIEF COMPLAINT: Abdominal pain HISTORY OF PRESENT ILLNESS: Surgical service is following regards to patient's abdominal pain. Patient today is complaining of pain being more on the right upper side and radiating from her back. She describes it as a spasming type pain. She's also noted some vaginal bleeding. She is tolerating a clear liquid diet. She is afebrile. White count has trended down to 14.5 hemoglobin 13.2 urine nicotine screen is pending PHYSICAL EXAM: VITAL SIGNS: Reviewed GENERAL: Well-developed in no acute distress. HEENT: No sclera icterus. Extraocular movements grossly intact. Moist buccal mucosa. Head is atraumatic, normocephalic. Hears conversational speech. No nasal drainage. NECK: Supple without lymphadenopathy. CHEST: Non-labored respirations and equal bilateral excursions. CARDIOVASCULAR: Palpable 2+ radial pulses. ABDOMEN: Soft. Nondistended. Right upper quadrant tenderness. MUSCULOSKELETAL: No clubbing or cyanosis. NEUROLOGIC: No focal or lateralizing signs. Cranial nerves II through XII grossly intact. PSYCH: Appropriate affect. Alert and oriented to person, place and time. SKIN: Well perfused. Good skin turgor. ASSESSMENT: 1. New Right upper quadrant abdominal pain 2. Abdominal pain at incision site and ostomy likely secondary to straining from patient's cough 3. 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 4. Ileus PLAN: -Order abdominal ultrasound to rule out gallbladder disease -Start patient on a low-fat diet -Consult [employer] SET UP OPERATOR service regarding vaginal bleeding -Continue antibiotics Physician Electron Beam Photo Mask Maker note has been reviewed by physician. Signing provider agrees with the documented findings, assessment, and plan of care. Objective - Vital Signs Vital signs: Vital Signs Temp 98 F 01/29/21 11:50 Pulse 86 01/29/21 11:50 Resp 16 01/29/21 11:50 BP 124/72 01/29/21 11:50 Pulse Ox 92 L 01/29/21 11:50 Intake & Output 01/28/21 01/29/21 01/29/21 18:59 06:59 18:59 Intake Total 440 700 Balance 440 700 Weight 74.843 kg Intake: Intake, IV Titration 700 Amount Piperacillin-Tazobactam 3 100 .375 gm In Sodium Chloride 0.9% 100 ml @ 25 mls/hr IVPB Q8HR [facility] Rx# :[id number] Sodium Chloride 0.9% 1, 600 000 ml @ 75 mls/hr IV . [id number] [facility] Rx#:[id number] Oral 440 Other: Voiding Method Diaper Diaper Toilet Incontinent Incontinent # Voids 1 1 - Labs CBC & Chem 7: 01/28/21 11:22 01/27/21 20:59 <Candice Leo N - Last Filed: 01/29/21 18:48> Subjective As above. CHIEF COMPLAINT: Abdominal pain HISTORY OF PRESENT ILLNESS: The patient is a 60 year old female with complicated diverticulitis including colovesical fistula. She is status post colostomy creation less than 1 month ago. Since admission, she reports some improvement of her abdominal pain. She reports intermittent vaginal bleeding. 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 REVIEW OF ORGAN SYSTEMS: No fevers or chills. No nausea or vomiting. No shortness of breath. PHYSICAL EXAM: VITALS: Reviewed CONSTITUTIONAL: Well developed and in no acute distress. EYES: Conjuctivae without sclera icterus. Pupils are equally round and reactive to light. Extraocular movements grossly intact. HEAD, EARS, NOSE, THROAT: Moist buccal mucosa. Head is atraumatic, normocephalic. Hears conversational speech. No nasal drainage. RESPIRATORY: Non-labored respirations and equal bilateral excursions. No gross wheezes. CARDIOVASCULAR: Regular rate and rhythm. Palpable 2+ radial pulses. ABDOMEN: No peritonitis. Ostomy functioning. MUSCULOSKELETAL: No clubbing cyanosis or edema. SKIN: Warm and well perfused with good skin turgor. NEUROLOGIC: Cranial nerves II through XII grossly intact. No focal or lateralizing signs. PSYCH: Appropriate affect. Alert and oriented to person, place and time. Displays appropriate insight. CLINCAL LABS: Reviewed. WBC elevated over 18,000 now over 11,000 ASSESSMENT: 1. Complicated diverticulitis with colovesical fistula 2. 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 3. Ileus 4. Vaginal bleeding PLAN: 1. Continue IV antibiotics 2. Diet as tolerated 3. Recommend gynecology assessment for vaginal bleeding. Objective - Vital Signs Vital signs: Vital Signs Temp 98 F 01/29/21 11:50 Pulse 86 01/29/21 11:50 Resp 16 01/29/21 11:50 BP 124/72 01/29/21 11:50 Pulse Ox 92 L 01/29/21 11:50 Intake & Output 01/28/21 01/29/21 01/29/21 18:59 06:59 18:59 Intake Total 440 700 500 Balance 440 700 500 Weight 74.843 kg Intake: Intake, IV Titration 700 500 Amount Piperacillin-Tazobactam 3 100 200 .375 gm In Sodium Chloride 0.9% 100 ml @ 25 mls/hr IVPB Q8HR [facility] Rx# :[id number] Sodium Chloride 0.9% 1, 600 300 000 ml @ 75 mls/hr IV . [id number] [facility] Rx#:[id number] Oral 440 Other: Voiding Method Diaper Diaper Toilet Incontinent Incontinent # Voids 1 1 - Labs CBC & Chem 7: 01/29/21 13:13 01/27/21 20:59 Labs: Abnormal Lab Results - Last 24 Hours (Table) 01/29/21 Range/Units 13:13 WBC 11.7 H (3.8-10.6) k/uL RDW 16.6 H (11.5-15.5) % Neutrophils # 9.2 H (1.3-7.7) k/uL Assessment and Plan (1) Colostomy in place Current Visit: Yes Status: Acute Code(s): Z93.3 - COLOSTOMY STATUS SNOMED Code(s): 015909026 (2) Diverticulitis Current Visit: Yes Status: Acute Code(s): K57.92 - DVTRCLI OF INTEST, PART UNSP, W/O PERF OR ABSCESS W/O BLEED SNOMED Code(s): 038500294 (3) Ileus Current Visit: Yes Status: Acute Code(s): K56.7 - ILEUS, UNSPECIFIED SNOMED Code(s): 044272038 (4) Vaginal bleeding Current Visit: Yes Status: Acute Code(s): N93.9 - ABNORMAL UTERINE AND VAGINAL BLEEDING, UNSPECIFIED SNOMED Code(s): 843684101
[2021-01-29 13:52] LABS: Anisocytosis Slight; Basophils % (A) 0 %; Eosinophils # (A) 0.2 k/uL (0-0.7); Eosinophils % (A) 2 %; HCT 37.9 % (34.0-46.0); HGB 12.6 gm/dL (11.4-16.0); Lymphocytes # (A) 1.6 k/uL (1.0-4.8); Lymphocytes % (A) 14 %; MCH 28.8 pg (25.0-35.0); MCHC 33.2 g/dL (31.0-37.0); MCV 86.9 fL (80.0-100.0); Mean Platelet Volume 6.6; Monocytes # (A) 0.6 k/uL (0-1.0); Monocytes % (A) 5 %; Neutrophils # (A) 9.2 k/uL (1.3-7.7); Neutrophils % (A) 78 %; Platelet Count 288 k/uL (150-450); RBC 4.36 m/uL (3.80-5.40); RDW 16.6 % (11.5-15.5); WBC 11.7 k/uL (3.8-10.6)
[2021-01-29] MEDS: SODIUM CHLORIDE 0.9% 1,000 ML IV SCH (14:45)
--- NOTE | 2021-01-29 15:24 | US ---
EXAMINATION TYPE: US abdomen complete DATE OF EXAM: 01/29/2021 COMPARISON: 09/08/2020 CLINICAL HISTORY: RUQ pain. Diverticulitis surgery 3 weeks ago, RUQ pain EXAM MEASUREMENTS: Liver Length: 21.0 cm Gallbladder Wall: 0.2 cm CBD: 0.7 cm Spleen: not seen Right Kidney: 11.3 x 4.1 x 5.1 cm Left Kidney: not seen LUQ bowel gas obscures spleen and left renal, patient does have new colostomy bag on left side Pancreas: Limited the visualization of the pancreas. The head and tail are obscured by overlying bow el gas. Liver: Limited visualization of the liver due to intercostal imaging, enlarged, hepatic steatosis. Gallbladder: appearance of sludge, hydropic distended gallbladder. No discrete gallstones. The gallb ladder wall is not thickened. Evidence for sonographic Willard's sign: no CBD: 7.1 mm Spleen: not seen Right Kidney: wnl no renal calculi or hydronephrosis. Left Kidney: not seen Upper IVC: wnl Abd Aorta: limited visualization. The mid and distal aorta are not visualized. IMPRESSION: 1. The head and tail of the pancreas are nonvisualized due to overlying bowel gas. The left kidney is not visualized. 2. Intercostal imaging limits evaluation of the liver. There is hepatomegaly and hepatic steatosis. 3. The mid and distal aorta are not visualized due to overlying bowel gas. 4. Hydropic distended gallbladder with sludge. No discrete gallstones. No gallbladder wall thickening . Willard's sign is negative. 5. Common duct measures 7.1 mm, which is minimally enlarged for patient's age. No intrahepatic biliar y dilatation. A small obstructing lesion is not excluded. MRCP or ERCP would be helpful.
--- NOTE | 2021-01-29 16:54 | P.PN ---
Subjective Progress Note Date: 01/29/21 Kamryn Martin is a 60 yo F with history of recent diverticulitis with abscess s/p colectamy and ostomy creation who was recently discharged a few weeks ago. She states that over the past few days she has been having more abdominal pain around the RLQ and near her ventral incision. She continues to have good ostomy output. No nausea, vomiting, fevers or chills. She did complete her abx a few weeks ago. On presentation vitals stable, WBC 18k, lipase 400, CT abd/pelvis no acute process. 01/29/2021 reports yesterday she experienced spasms along the right lateral side of her upper and lower abdominal quadrants. .Maintained on IV antibiotics. Tolerating clear liquids with no nausea, vomiting. Afebrile, recent labs reporting WBC trending down, 14.5, hemoglobin 13.2. CBC pending. Denies chest pain, palpitations or shortness of breath. Objective - Vital Signs Vital signs: Vital Signs Temp 98 F 01/29/21 11:50 Pulse 86 01/29/21 11:50 Resp 16 01/29/21 11:50 BP 124/72 01/29/21 11:50 Pulse Ox 92 L 01/29/21 11:50 Intake & Output 01/28/21 01/29/21 01/29/21 18:59 06:59 18:59 Intake Total 440 700 Balance 440 700 Weight 74.843 kg Intake: Intake, IV Titration 700 Amount Piperacillin-Tazobactam 3 100 .375 gm In Sodium Chloride 0.9% 100 ml @ 25 mls/hr IVPB Q8HR [facility] Rx# :[id number] Sodium Chloride 0.9% 1, 600 000 ml @ 75 mls/hr IV . [id number] [facility] Rx#:[id number] Oral 440 Other: Voiding Method Diaper Diaper Toilet Incontinent Incontinent # Voids 1 1 - Exam General: Sitting up in bed, NAD. Vitals reviewed Eyes: PERRL, EOMI, conjunctiva normal HENT: normocephalic, mucus membranes moist Neck: supple, no JVD Lungs: normal respiratory effort, no wheezes or rales CV: Regular rate and rhythm, no murmur. Peripheral pulses 2+ Abdomen: soft, nondistended, no organomegaly. TTP R sided. ostomy healthy Skin: warm and dry. Neuro: A&Ox3, normal mood and affect - Labs CBC & Chem 7: 01/29/21 13:13 01/27/21 20:59 Labs: Abnormal Lab Results - Last 24 Hours (Table) 01/29/21 Range/Units 13:13 WBC 11.7 H (3.8-10.6) k/uL RDW 16.6 H (11.5-15.5) % Neutrophils # 9.2 H (1.3-7.7) k/uL Assessment and Plan Assessment: 1. Abdominal pain s/p recent colectomy and ostomy creation. Suspect partial SBO vs colitis. Plan: Continue on current medication regime ,monitoring and symptomatic treatment. CBC pending. Maintain IV fluids, antibiotics, PPI. Suspect pain related to inflammation and remodeling scar tissue-follow closely with surgery for further recommendations. Increase ambulation as tolerated. The impression and plan of care has been dictated as directed. : I performed a history and examination of this patient, discussed the same with the dictator. I agree with the dictator's note ,documented as a scribe. Any additional findings or plans will be noted.
[2021-01-30] MEDS: MORPHINE SULFATE 4 MG/ML SYRINGE IV PRN ×4 (03:05→21:39)
[2021-01-30 05:36] LABS: Anisocytosis Slight; Basophils % (A) 0 %; Eosinophils # (A) 0.3 k/uL (0-0.7); Eosinophils % (A) 4 %; HCT 36.7 % (34.0-46.0); HGB 12.1 gm/dL (11.4-16.0); Lymphocytes # (A) 1.2 k/uL (1.0-4.8); Lymphocytes % (A) 15 %; MCH 28.5 pg (25.0-35.0); MCHC 32.9 g/dL (31.0-37.0); MCV 86.6 fL (80.0-100.0); Mean Platelet Volume 6.6; Monocytes # (A) 0.6 k/uL (0-1.0); Monocytes % (A) 7 %; Neutrophils # (A) 5.8 k/uL (1.3-7.7); Neutrophils % (A) 72 %; Platelet Count 294 k/uL (150-450); RBC 4.24 m/uL (3.80-5.40); RDW 16.5 % (11.5-15.5)
[2021-01-30] MEDS: SODIUM CHLORIDE 0.9% 1,000 ML IV SCH ×2 (06:03→18:08)
[2021-01-30] MEDS: PANTOPRAZOLE 40 MG/10 ML VIAL IV SCH (08:30)
[2021-01-30] MEDS: PIPERACILLIN-TAZOBACTAM 3.375 GM in SODIUM CHLORIDE 0.9% 100 ML IVPB SCH ×2 (08:31→16:08)
--- NOTE | 2021-01-30 08:47 | P.OBCN ---
History of Present Illness Consult date: 01/30/21 Reason for consult: other (vaginal spotting) Chief complaint: vaginal bleeding History of present illness: 60 year old presented to hospital after complications due to recent surgery of colectomy with ostomy and repair of fistula. Pt noted some vaginal spotting yesterday. This is the third time this has happened since her surgery. The first time was on the way home from the hospital, the second time was after a do ctor's appointment where she had a long ride to get there and this is the third time. Just a little bit of vaginal spotting, no pain and no cramping. Review of Systems All systems: negative Constitutional: Denies chills, Denies fever Eyes: denies blurred vision, denies pain Ears, nose, mouth and throat: Denies headache, Denies sore throat Cardiovascular: Denies chest pain, Denies shortness of breath Respiratory: Denies cough Gastrointestinal: Denies abdominal pain, Denies diarrhea, Denies nausea, Denies vomiting Genitourinary: Denies dysuria, Denies hematuria Musculoskeletal: Denies myalgias Integumentary: Denies pruritus, Denies rash Neurological: Denies numbness, Denies weakness Psychiatric: Denies anxiety, Denies depression Endocrine: Denies fatigue, Denies weight change Past Medical History Past Medical History: Asthma, COPD, Fibromyalgia, Hyperlipidemia, Hypertension, Musculoskeletal Disorder, Osteoarthritis (OA), Pulmonary Embolus (PE) Additional Past Medical History / Comment(s): Pancreatitis, chronic pain, DDD, DJD, cervical/back pain/bilateral scoliosis, spondylosis, neuropathy bilat hands and feet, pulmonary embolism R lung, brain aneurysm being monitored - last 2019, diverticulosis. Recent CT scan shows mass in colon. History of Any Multi-Drug Resistant Organisms: None Reported Past Surgical History: Hysterectomy, Tubal Ligation Additional Past Surgical History / Comment(s): D&C, angiograms d/t cerebral aneurysm. Past Anesthesia/Blood Transfusion Reactions: No Reported Reaction, Motion Sickness Additional Past Anesthesia/Blood Transfusion Reaction / Comm: motion sick as a child Past Psychological History: Anxiety, Depression Additional Psychological History / Comment(s): Pt lives with her son and his fiancee. She has a cane but does not need to use it. She drives. Smoking Status: Former smoker Past Alcohol Use History: None Reported Additional Past Alcohol Use History / Comment(s): Pt started smoking in 1977, 1/2 ppd smoker, down to few cigarettes daily. She drank heavily in the past but has not drank alcohol since 2009. Past Drug Use History: Marijuana Additional Drug Use History / Comment(s): uses daily - Past Family History Mother Family Medical History: Cancer, Coronary Artery Disease (CAD) Additional Family Medical History / Comment(s): Mother had uterine cancer. Sister(s) Family Medical History: Cancer, Neurologic Disorder Additional Family Medical History / Comment(s): parkinsonism; uterine, lung cancer. Brother(s) Family Medical History: Cancer Additional Family Medical History / Comment(s): Pt had 2 brothers with cancer - 1 leukemia. Medications and Allergies Home Medications Medication Instructions Recorded Confirmed Type Multivitamins, Thera [Multivitamin 1 tab PO DAILY 01/27/21 01/27/21 History (formulary)] Allergies Allergy/AdvReac Type Severity Reaction Status Date / Time ibuprofen AdvReac Abdominal Verified 01/27/21 22:15 Pain Exam Osteopathic Statement: *. No significant issues noted on an osteopathic structural exam other than those noted in the History and Physical/Consult. Vital Signs Temp Pulse Resp BP Pulse Ox 01/30/21 05:00 98.3 F 79 16 124/78 91 L 01/29/21 20:11 98.3 F 75 16 115/72 93 L 01/29/21 11:50 98 F 86 16 124/72 92 L Intake and Output 01/29/21 01/30/21 01/30/21 22:59 06:59 14:59 Intake Total 500 1540 Balance 500 1540 Intake: Intake, IV Titration 500 1000 Amount Piperacillin-Tazobactam 3 200 100 .375 gm In Sodium Chloride 0.9% 100 ml @ 25 mls/hr IVPB Q8HR [facility] Rx# :[id number] Sodium Chloride 0.9% 1, 300 900 000 ml @ 75 mls/hr IV . [id number] [facility] Rx#:[id number] Oral 540 Other: Voiding Method Toilet # Voids 3 Bimanual exam reveals no adnexal masses and nontender, no uterus present as per previous hysterectomy, the vaginal cuff does feel intact with no nodules, lacerations or masses felt. There is no blood after the exam and no active bleeding. Results Result Diagrams: 01/30/21 05:01 01/27/21 20:59 Abnormal Lab Results - Last 24 Hours (Table) 01/29/21 01/30/21 Range/Units 13:13 05:01 WBC 11.7 H (3.8-10.6) k/uL RDW 16.6 H 16.5 H (11.5-15.5) % Neutrophils # 9.2 H (1.3-7.7) k/uL Assessment and Plan (1) Vaginal spotting Current Visit: Yes Status: Acute Code(s): N93.9 - ABNORMAL UTERINE AND VAGINAL BLEEDING, UNSPECIFIED SNOMED Code(s): 328300346 (2) Atrophic vaginitis Current Visit: Yes Status: Acute Code(s): N95.2 - POSTMENOPAUSAL ATROPHIC VAGINITIS SNOMED Code(s): 32230367 Plan: 1. No further gynecological intervention at this time
--- NOTE | 2021-01-30 10:22 | P.PN ---
Subjective Progress Note Date: 01/30/21 Kamryn Martin is a 60 yo F with history of recent diverticulitis with abscess s/p colectamy and ostomy creation who was recently discharged a few weeks ago. She states that over the past few days she has been having more abdominal pain around the RLQ and near her ventral incision. She continues to have good ostomy output. No nausea, vomiting, fevers or chills. She did complete her abx a few weeks ago. On presentation vitals stable, WBC 18k, lipase 400, CT abd/pelvis no acute process. 01/29/2021 reports yesterday she experienced spasms along the right lateral side of her upper and lower abdominal quadrants. .Maintained on IV antibiotics. Tolerating clear liquids with no nausea, vomiting. Afebrile, recent labs reporting WBC trending down, 14.5, hemoglobin 13.2. CBC pending. Denies chest pain, palpitations or shortness of breath. 01/30/21 evaluated by MANAGER REGULATORY/oncology secondary to vaginal spotting-no active bleeding per their exam, reported. No gynecological intervention recommended at this time. Hemoglobin 12.1, platelets 294. Responding well to Zosyn, Afebrile, normal WBC. Ultrasound of abdomen reporting head and tail of pancreas nonvisualized due to overlying bowel gas, left kidney not visualized, intercostal imaging limiting evaluation of liver, hepatomegaly and hepatic steatosis, mid and distal aorta not visualized due to overlying bowel gas, hydropic distended gallbladder with sludge, no discrete gallstones, no gallbladder wall thickening, negative Willard sign,, bile duct measures 7.1 mm, minimally enlarged, no intrahepatic biliary dilatation, small obstructing lesion not excluded-further recommendations from surgery pending. Feels better this morning, minimal appetite, denies nausea. Reports pain present but improving; more so with movement. Denies chest pain, palpitations or shortness of breath. Objective - Vital Signs Vital signs: Vital Signs Temp 98.3 F 01/30/21 05:00 Pulse 79 01/30/21 05:00 Resp 16 01/30/21 05:00 BP 124/78 01/30/21 05:00 Pulse Ox 91 L 01/30/21 05:00 Intake & Output 01/29/21 01/30/21 01/30/21 18:59 06:59 18:59 Intake Total 500 1540 Balance 500 1540 Intake: Intake, IV Titration 500 1000 Amount Piperacillin-Tazobactam 3 200 100 .375 gm In Sodium Chloride 0.9% 100 ml @ 25 mls/hr IVPB Q8HR [facility] B[facility]S AT [facility] Rx# :[id number] Sodium Chloride 0.9% 1, 300 900 000 ml @ 75 mls/hr IV . [id number] [facility] Rx#:[id number] Oral 540 Other: Voiding Method Toilet Toilet # Voids 3 - Exam General: Sitting up in bed, NAD. Vitals reviewed Eyes: PERRL, EOMI, conjunctiva normal HENT: normocephalic, mucus membranes moist Neck: supple, no JVD Lungs: normal respiratory effort, fine bibasilar crackles. CV: Regular rate and rhythm, no murmur. Peripheral pulses 2+ Abdomen: soft, nondistended, no organomegaly. TTP R sided. ostomy healthy Skin: warm and dry. Neuro: A&Ox3, normal mood and affect - Labs CBC & Chem 7: 01/30/21 05:01 01/27/21 20:59 Labs: Abnormal Lab Results - Last 24 Hours (Table) 01/29/21 01/30/21 Range/Units 13:13 05:01 WBC 11.7 H (3.8-10.6) k/uL RDW 16.6 H 16.5 H (11.5-15.5) % Neutrophils # 9.2 H (1.3-7.7) k/uL Assessment and Plan Assessment: 1. Abdominal pain s/p recent colectomy and ostomy creation. Suspect partial SBO vs colitis. Ultrasound of abdomen noted, further recommendations per surgery pending. Atelectasis Plan: Continue on current medication regime ,monitoring and symptomatic treatment. Abdominal ultrasound notedfurther surgery recommendations pending. Aggressive pulmonary toileting with incentive spirometer reinforced-patient reports only using it randomly. Continue on IV antibiotics. Increase ambulation as tolerated. The impression and plan of care has been dictated as directed. : I performed a history and examination of this patient, discussed the same with the dictator. I agree with the dictator's note ,documented as a scribe. Any additional findings or plans will be noted.
[2021-01-30 10:49] LABS: African American GFR (CKD) 122.8 (60.0-200.0); Anion Gap 9.4 mmol/L (4.00-12.00); Calcium 8.8 mg/dL (8.7-10.3); Carbon Dioxide 24.6 mmol/L (21.6-31.8); Non-African American GFR(CKD) 105.9 (60.0-200.0); Potassium 3.6 mmol/L (3.5-5.5)
--- NOTE | 2021-01-30 13:15 | P.PN ---
<TeodoroKayla crow - Last Filed: 01/30/21 13:07> Subjective Progress Note Date: 01/30/21 CHIEF COMPLAINT: Abdominal pain HISTORY OF PRESENT ILLNESS: Surgical service is following in regards to patient's abdominal pain. Patient reports that her pain is about the same with the right upper quadrant pain radiating to her back. Patient today is complaining of pain being more on the right upper side and radiating from her b ack. Patient had abdominal ultrasound completed showing hydropic distended gallbladder with sludge. No discrete gallstones. No gallbladder wall thickening. Willard sign is negative. Common duct measures 7.1 mm which is minimally enlarged for patient's age. No intrahepatic biliary dilation. A s mall obstructing lesion is not excluded. Afebrile. WBC has normalized at 8.0 hemoglobin 12.1 PHYSICAL EXAM: VITAL SIGNS: Reviewed GENERAL: Well-developed in no acute distress. HEENT: No sclera icterus. Extraocular movements grossly intact. Moist buccal mucosa. Head is atraumatic, normocephalic. Hears conversational speech. No nasal drainage. NECK: Supple without lymphadenopathy. CHEST: Non-labored respirations and equal bilateral excursions. CARDIOVASCULAR: Palpable 2+ radial pulses. ABDOMEN: Soft. Nondistended. Right upper quadrant tenderness. MUSCULOSKELETAL: No clubbing or cyanosis. NEUROLOGIC: No focal or lateralizing signs. Cranial nerves II through XII grossly intact. PSYCH: Appropriate affect. Alert and oriented to person, place and time. SKIN: Well perfused. Good skin turgor. ASSESSMENT: 1. New Right upper quadrant abdominal pain with ultrasound showing evidence of hydropic distended gallbladder with sludge 2. Abdominal pain at incision site and ostomy likely secondary to straining from patient's cough 3. 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 4. 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 Signing provider agrees with the documented findings, assessment, and plan of care. Objective - Vital Signs Vital signs: Vital Signs Temp 98.3 F 01/30/21 05:00 Pulse 79 01/30/21 05:00 Resp 16 01/30/21 05:00 BP 124/78 01/30/21 05:00 Pulse Ox 91 L 01/30/21 05:00 Intake & Output 01/29/21 01/30/21 01/30/21 18:59 06:59 18:59 Intake Total 500 1540 Balance 500 1540 Intake: Intake, IV Titration 500 1000 Amount Piperacillin-Tazobactam 3 200 100 .375 gm In Sodium Chloride 0.9% 100 ml @ 25 mls/hr IVPB Q8HR [facility] Rx# :[id number] Sodium Chloride 0.9% 1, 300 900 000 ml @ 75 mls/hr IV . [id number] [facility] Rx#:[id number] Oral 540 Other: Voiding Method Toilet Toilet # Voids 3 - Labs CBC & Chem 7: 01/30/21 05:01 01/30/21 05:01 Labs: Abnormal Lab Results - Last 24 Hours (Table) 01/29/21 01/30/21 01/30/21 Range/Units 13:13 05:01 05:01 WBC 11.7 H (3.8-10.6) k/uL RDW 16.6 H 16.5 H (11.5-15.5) % Neutrophils # 9.2 H (1.3-7.7) k/uL Creatinine 0.5 L (0.6-1.5) mg/dL BUN/Creatinine Ratio 22.00 H (12.00-20.00) Ratio <Candice Leo N - Last Filed: 01/30/21 21:43> Subjective As above. CHIEF COMPLAINT: Abdominal pain HISTORY OF PRESENT ILLNESS: The patient is a 60 year old female with complicated diverticulitis including colovesical fistula. She had reported vaginal bleeding. Patient has been seen by gynecology. Otherwise, she complains primarily of right-sided, right upper quadrant abdominal pain. She reports her pain is tolerable and improved since admission. REVIEW OF ORGAN SYSTEMS: No fevers or chills. No nausea or vomiting. No shortness of breath. PHYSICAL EXAM: VITALS: Reviewed CONSTITUTIONAL: Well developed and in no acute distress. EYES: Conjuctivae without sclera icterus. Pupils are equally round and reactive to light. Extraocular movements grossly intact. HEAD, EARS, NOSE, THROAT: Moist buccal mucosa. Head is atraumatic, normocephalic. Hears conversational speech. No nasal drainage. RESPIRATORY: Non-labored respirations and equal bilateral excursions. No gross wheezes. CARDIOVASCULAR: Regular rate and rhythm. Palpable 2+ radial pulses. ABDOMEN: No peritonitis. Ostomy functioning. Tender right upper quadrant. MUSCULOSKELETAL: No clubbing cyanosis or edema. SKIN: Warm and well perfused with good skin turgor. NEUROLOGIC: Cranial nerves II through XII grossly intact. No focal or lateralizing signs. PSYCH: Appropriate affect. Alert and oriented to person, place and time. Displays appropriate insight. CLINCAL LABS: Reviewed. WBC elevated over 18,000 now over 11,000, now normal. ASSESSMENT: 1. Complicated diverticulitis with colovesical fistula 2. Status post colostomy for complicated diverticulitis with colo-vesical fistu la. 3. Ileus 4. Vaginal bleeding 5. Right upper quadrant abdominal pain, clinical cholecystitis PLAN: 1. Clinically, she has symptoms of cholecystitis. However, due to recent surgery recommend conservative management 2. Recommend low fat diet. 3. May discharge once clincally stable. Objective - Vital Signs Vital signs: Vital Signs Temp 98.0 F 01/30/21 19:38 Pulse 86 01/30/21 19:38 Resp 18 01/30/21 19:38 BP 130/84 01/30/21 19:38 Pulse Ox 92 L 01/30/21 19:38 Intake & Output 01/30/21 01/30/21 01/31/21 06:59 18:59 06:59 Intake Total 1540 900 Balance 1540 900 Intake: Intake, IV Titration 1000 900 Amount Piperacillin-Tazobactam 3 100 .375 gm In Sodium Chloride 0.9% 100 ml @ 25 mls/hr IVPB Q8HR [facility] Rx# :[id number] Sodium Chloride 0.9% 1, 900 900 000 ml @ 75 mls/hr IV . [id number] [facility] Rx#:[id number] Oral 540 Other: Voiding Method Toilet # Voids 3 - Labs CBC & Chem 7: 01/30/21 05:01 01/30/21 05:01 Labs: Abnormal Lab Results - Last 24 Hours (Table) 01/30/21 01/30/21 Range/Units 05:01 05:01 RDW 16.5 H (11.5-15.5) % Creatinine 0.5 L (0.6-1.5) mg/dL BUN/Creatinine Ratio 22.00 H (12.00-20.00) Ratio Assessment and Plan (1) Colostomy in place Current Visit: Yes Status: Acute Code(s): Z93.3 - COLOSTOMY STATUS SNOMED Code(s): 462167154 (2) Diverticulitis Current Visit: Yes Status: Acute Code(s): K57.92 - DVTRCLI OF INTEST, PART UNSP, W/O PERF OR ABSCESS W/O BLEED SNOMED Code(s): 858675081 (3) Ileus Current Visit: Yes Status: Acute Code(s): K56.7 - ILEUS, UNSPECIFIED SNOMED Code(s): 174445540 (4) Vaginal bleeding Current Visit: Yes Status: Acute Code(s): N93.9 - ABNORMAL UTERINE AND VAGINAL BLEEDING, UNSPECIFIED SNOMED Code(s): 373652532 (5) Right upper quadrant abdominal pain Current Visit: Yes Status: Acute Code(s): R10.11 - RIGHT UPPER QUADRANT PAIN SNOMED Code(s): 114079747 (6) Cholecystitis Current Visit: Yes Status: Acute Code(s): K81.9 - CHOLECYSTITIS, UNSPECIFIED SNOMED Code(s): 52237403
[2021-01-31] MEDS: PIPERACILLIN-TAZOBACTAM 3.375 GM in SODIUM CHLORIDE 0.9% 100 ML IVPB SCH ×3 (01:53→14:59)
[2021-01-31] MEDS: MORPHINE SULFATE 4 MG/ML SYRINGE IV PRN ×5 (04:12→20:20)
[2021-01-31] MEDS: PANTOPRAZOLE 40 MG/10 ML VIAL IV SCH (07:12)
[2021-01-31] MEDS: ONDANSETRON 4 MG/2 ML VIAL IVP PRN (07:12)
[2021-01-31] MEDS: SODIUM CHLORIDE 0.9% 1,000 ML IV SCH ×2 (09:11→20:26)
[2021-01-31] MEDS ORDERED: MAGNESIUM HYDROXIDE 2,400 MG/10 ML CUP PO PRN (11:23)
--- NOTE | 2021-01-31 11:23 | P.PN ---
Subjective Progress Note Date: 01/31/21 Principal diagnosis: Abdominal pain Patient says she still having right-sided abdominal pain. Slightly improved from yesterday. No nausea or vomiting. Tolerating diet. Objective - Vital Signs Vital signs: Vital Signs Temp 97.9 F 01/31/21 04:16 Pulse 74 01/31/21 04:16 Resp 16 01/31/21 04:16 BP 147/84 01/31/21 04:16 Pulse Ox 94 L 01/31/21 04:16 Intake & Output 01/30/21 01/31/21 01/31/21 18:59 06:59 18:59 Intake Total 900 700 Balance 900 700 Intake: Intake, IV Titration 900 700 Amount Piperacillin-Tazobactam 3 100 .375 gm In Sodium Chloride 0.9% 100 ml @ 25 mls/hr IVPB Q8HR [facility] Rx# :[id number] Sodium Chloride 0.9% 1, 900 600 000 ml @ 75 mls/hr IV . [id number] [facility] Rx#:[id number] Other: Voiding Method Toilet Toilet # Voids 0 - Exam Abdomen: Soft, nondistended, mild right-sided tenderness - Labs CBC & Chem 7: 01/30/21 05:01 01/30/21 05:01 Assessment and Plan (1) Right upper quadrant abdominal pain Narrative/Plan: 60-year-old female with right-sided abdominal pain. Etiology remains somewhat unclear. She describes constipation. Will advance additional stool softener. Continue diet as tolerated. Will follow. Current Visit: Yes Status: Acute Code(s): R10.11 - RIGHT UPPER QUADRANT PAIN SNOMED Code(s): 184581539
[2021-01-31 13:39] VITALS: BMI 26.6
--- NOTE | 2021-01-31 17:00 | P.PN ---
Subjective Patient with recurrent diverticulitis had a colectomy and a colostomy bag on the left side patient is passing gas no bowel movements yet, patient remains on Zosyn, normal saline at 75 mL/h. Her leukocytosis resolved Constitutional: Denied any fatigue denied any fever. Cardio vascular: denied any chest pain, palpitations Gastrointestinal denied any nausea vomiting Pulmonary: Denied any shortness of breath cough Neurologic denied any new focal deficits All inpatient medications were reviewed and appropriate changes in these medications as dictated in the interval history and assessment and plan. The rest of the 14-point review of systems is negative. PHYSICAL EXAMINATION: GENERAL: The patient is alert and oriented x3, not in any acute distress. Well developed, well nourished. HEENT: Pupils are round and equally reacting to light. EOMI. No scleral icterus. No conjunctival pallor. Normocephalic, atraumatic. No pharyngeal erythema. No thyromegaly. CARDIOVASCULAR: S1 and S2 present. No murmurs, rubs, or gallops. PULMONARY: Chest is clear to auscultation, no wheezing or crackles. ABDOMEN: Soft, nontender, nondistended, normoactive bowel sounds. No palpable organomegaly. Left-sided colostomy bag with AST and very minimal stool in it MUSCULOSKELETAL: No joint swelling or deformity. EXTREMITIES: No cyanosis, clubbing, or pedal edema. NEUROLOGICAL: Gross neurological examination did not reveal any focal deficits. SKIN: No rashes. Assessment and plan -Recommend diverticulitis status post colectomy and a colostomy bag placement. Continue with present antibiotics -Leukocytosis due to assessment #1, improved DVT prophylaxis: Subcutaneous Lovenox Objective - Vital Signs Vital signs: Vital Signs Temp 98 F 01/31/21 11:57 Pulse 69 01/31/21 11:57 Resp 16 01/31/21 11:57 BP 139/65 01/31/21 11:57 Pulse Ox 97 01/31/21 11:57 Intake & Output 01/30/21 01/31/21 01/31/21 18:59 06:59 18:59 Intake Total 900 700 Balance 900 700 Weight 74.843 kg Intake: Intake, IV Titration 900 700 Amount Piperacillin-Tazobactam 3 100 .375 gm In Sodium Chloride 0.9% 100 ml @ 25 mls/hr IVPB Q8HR [facility] Rx# :[id number] Sodium Chloride 0.9% 1, 900 600 000 ml @ 75 mls/hr IV . [id number] [facility] Rx#:[id number] Other: Voiding Method Toilet Toilet # Voids 0 - Labs CBC & Chem 7: 01/30/21 05:01 01/30/21 05:01
[2021-01-31] MEDS: ENOXAPARIN 40 MG/0.4 ML SYRINGE SQ SCH (17:33)
[2021-01-31] MEDS: DOCUSATE 100 MG CAP PO SCH (20:26)
[2021-02-01] MEDS: PIPERACILLIN-TAZOBACTAM 3.375 GM in SODIUM CHLORIDE 0.9% 100 ML IVPB SCH ×4 (00:17→22:13)
[2021-02-01] MEDS: MORPHINE SULFATE 4 MG/ML SYRINGE IV PRN ×4 (01:51→20:26)
[2021-02-01] MEDS: DOCUSATE 100 MG CAP PO SCH ×2 (08:30→22:13)
[2021-02-01] MEDS: MULTIVITAMINS, THERA 1 EACH TAB PO SCH (08:30)
[2021-02-01] MEDS: SODIUM CHLORIDE 0.9% 1,000 ML IV SCH (08:31)
[2021-02-01] MEDS: PANTOPRAZOLE 40 MG TABLET PO SCH (08:31)
[2021-02-01] MEDS: ENOXAPARIN 40 MG/0.4 ML SYRINGE SQ SCH (08:31)
[2021-02-01] MEDS: ONDANSETRON 4 MG/2 ML VIAL IVP PRN ×2 (08:37→16:35)
--- NOTE | 2021-02-01 09:43 | P.PN ---
Subjective Progress Note Date: 02/01/21 Principal diagnosis: Abdominal pain Patient says her right-sided pain is about the same may be slightly improved. She did have a bowel movement through the ostomy yesterday. Denies nausea or vomiting. Tolerating some of the diet although does not like a lot of the food provided to her. Objective - Vital Signs Vital signs: Vital Signs Temp 98.1 F 02/01/21 05:00 Pulse 64 02/01/21 05:00 Resp 16 02/01/21 05:00 BP 129/82 02/01/21 05:00 Pulse Ox 95 02/01/21 05:00 Intake & Output 01/31/21 02/01/21 02/01/21 18:59 06:59 18:59 Intake Total 3310 700 Balance 3310 700 Weight 74.843 kg Intake: Intake, IV Titration 800 700 Amount Piperacillin-Tazobactam 3 200 100 .375 gm In Sodium Chloride 0.9% 100 ml @ 25 mls/hr IVPB Q8HR [facility] Rx# :[id number] Sodium Chloride 0.9% 1, 600 600 000 ml @ 75 mls/hr IV . [id number] [facility] Rx#:[id number] Oral 2510 Other: Voiding Method Toilet Toilet # Voids 2 # Bowel Movements 1 - Exam Abdomen: Soft, mild right-sided tenderness, ostomy functioning - Labs CBC & Chem 7: 01/30/21 05:01 01/30/21 05:01 Assessment and Plan (1) Right upper quadrant abdominal pain Narrative/Plan: Continue diet as tolerated. Continue monitor the patient's complaints of pain. Increase ambulation. Current Visit: Yes Status: Acute Code(s): R10.11 - RIGHT UPPER QUADRANT PAIN SNOMED Code(s): 241935769
--- NOTE | 2021-02-01 10:57 | P.PN ---
Subjective Patient with recurrent diverticulitis had a colectomy and a colostomy bag on the left side patient is passing gas no bowel movements yet, patient remains on Zosyn, normal saline at 75 mL/h. Her leukocytosis resolved 02/01/2021 Patient had a small bowel movement yesterday no bowel movement today patient is an soft diet at this time does have good bowel sounds Constitutional: Denied any fatigue denied any fever. Cardio vascular: denied any chest pain, palpitations Gastrointestinal denied any nausea vomiting Pulmonary: Denied any shortness of breath cough Neurologic denied any new focal deficits All inpatient medications were reviewed and appropriate changes in these medications as dictated in the interval history and assessment and plan. The rest of the 14-point review of systems is negative. PHYSICAL EXAMINATION: GENERAL: The patient is alert and oriented x3, not in any acute distress. Well developed, well nourished. HEENT: Pupils are round and equally reacting to light. EOMI. No scleral icterus. No conjunctival pallor. Normocephalic, atraumatic. No pharyngeal erythema. No thyromegaly. CARDIOVASCULAR: S1 and S2 present. No murmurs, rubs, or gallops. PULMONARY: Chest is clear to auscultation, no wheezing or crackles. ABDOMEN: Soft, nontender, nondistended, normoactive bowel sounds. No palpable organomegaly. Left-sided colostomy bag with AST and very minimal stool in it MUSCULOSKELETAL: No joint swelling or deformity. EXTREMITIES: No cyanosis, clubbing, or pedal edema. NEUROLOGICAL: Gross neurological examination did not reveal any focal deficits. SKIN: No rashes. Assessment and plan -Recommend diverticulitis status post colectomy and a colostomy bag placement. Continue with present antibiotics -Leukocytosis due to assessment #1, improved DVT prophylaxis: Subcutaneous Lovenox Objective - Vital Signs Vital signs: Vital Signs Temp 98.1 F 02/01/21 05:00 Pulse 64 02/01/21 05:00 Resp 16 02/01/21 05:00 BP 129/82 02/01/21 05:00 Pulse Ox 95 02/01/21 05:00 Intake & Output 01/31/21 02/01/21 02/01/21 18:59 06:59 18:59 Intake Total 3310 700 Balance 3310 700 Weight 74.843 kg Intake: Intake, IV Titration 800 700 Amount Piperacillin-Tazobactam 3 200 100 .375 gm In Sodium Chloride 0.9% 100 ml @ 25 mls/hr IVPB Q8HR [facility] Rx# :[id number] Sodium Chloride 0.9% 1, 600 600 000 ml @ 75 mls/hr IV . [id number] [facility] Rx#:[id number] Oral 2510 Other: Voiding Method Toilet Toilet # Voids 2 # Bowel Movements 1 - Labs CBC & Chem 7: 01/30/21 05:01 01/30/21 05:01
[2021-02-02] MEDS: SODIUM CHLORIDE 0.9% 1,000 ML IV SCH ×2 (00:38→13:36)
[2021-02-02] MEDS: ONDANSETRON 4 MG/2 ML VIAL IVP PRN (01:30)
[2021-02-02] MEDS: MORPHINE SULFATE 4 MG/ML SYRINGE IV PRN ×2 (01:30→06:25)
[2021-02-02] MEDS: PIPERACILLIN-TAZOBACTAM 3.375 GM in SODIUM CHLORIDE 0.9% 100 ML IVPB SCH ×3 (07:53→23:41)
[2021-02-02] MEDS: DOCUSATE 100 MG CAP PO SCH ×2 (07:54→21:43)
[2021-02-02] MEDS: MULTIVITAMINS, THERA 1 EACH TAB PO SCH (07:54)
[2021-02-02] MEDS: ENOXAPARIN 40 MG/0.4 ML SYRINGE SQ SCH (07:54)
[2021-02-02] MEDS: PANTOPRAZOLE 40 MG TABLET PO SCH (07:54)
[2021-02-02 08:59] LABS: Anabasine Urine <2.0 ng/mL (<2.0)
[2021-02-02 11:42] VITALS: RESP 16
--- NOTE | 2021-02-02 13:29 | P.PN ---
Subjective Progress Note Date: 02/02/21 CHIEF COMPLAINT: Abdominal pain HISTORY OF PRESENT ILLNESS: Surgical service is following in regards to dontae georges's abdominal pain. Patient still complains of some right upper quadrant pain but it has decreased since admission. She denies any nausea or vomiting. She was able to eat. She's having a very small formed stools through her ostomy. She does complain of some discomfort at the incision sites. Patient did report very small amount of spotting from the vagina. 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 She is afebrile. WBC 8.0 hemoglobin 12.1 PHYSICAL EXAM: VITAL SIGNS: Reviewed GENERAL: Well-developed in no acute distress. HEENT: No sclera icterus. Extraocular movements grossly intact. Moist buccal mucosa. Head is atraumatic, normocephalic. Hears conversational speech. No nasal drainage. NECK: Supple without lymphadenopathy. CHEST: Non-labored respirations and equal bilateral excursions. CARDIOVASCULAR: Palpable 2+ radial pulses. ABDOMEN: Soft. Nondistended. minimal tenderness Right upper quadrant. Incision site clean dry and intact. Ostomy functioning with small amount of stool. MUSCULOSKELETAL: No clubbing or cyanosis. NEUROLOGIC: No focal or lateralizing signs. Cranial nerves II through XII grossly intact. PSYCH: Appropriate affect. Alert and oriented to person, place and time. SKIN: Well perfused. Good skin turgor. ASSESSMENT: 1. New Right upper quadrant abdominal pain with ultrasound showing evidence of hydropic distended gallbladder with sludge 2. Abdominal pain at incision site and ostomy likely secondary to straining from patient's cough 3. Status post colostomy for complicated diverticulitis with colo-vesical fist shonda. 4. Ileus PLAN: -Recommend conservative management of distended gallbladder at this time due to patient having had recent abdominal surgery -Continue low-fat diet -Continue antibiotics -Patient can be discharge from surgical standpoint -Abdominal binder added for support Physician Coil Maker note has been reviewed by physician. Signing provider agrees with the documented findings, assessment, and plan of care. Objective - Vital Signs Vital signs: Vital Signs Temp 98.0 F 02/02/21 11:39 Pulse 65 02/02/21 11:39 Resp 16 02/02/21 11:39 BP 124/76 02/02/21 11:39 Pulse Ox 95 02/02/21 11:39 Intake & Output 02/01/21 02/02/21 02/02/21 18:59 06:59 18:59 Intake Total 1000 Balance 1000 Intake: Intake, IV Titration 1000 Amount Piperacillin-Tazobactam 3 100 .375 gm In Sodium Chloride 0.9% 100 ml @ 25 mls/hr IVPB Q8HR [facility] Rx# :[id number] Sodium Chloride 0.9% 1, 900 000 ml @ 75 mls/hr IV . [id number] [facility] Rx#:[id number] Other: Voiding Method Toilet # Voids 2 - Labs CBC & Chem 7: 01/30/21 05:01 01/30/21 05:01
[2021-02-02] MEDS: HYDROcodone/APAP 5-325MG 1 EACH TAB PO SCH ×2 (13:51→21:43)
[2021-02-02] MEDS: polyethylene glycoL 3350 17 GM POWD.PACK PO SCH (13:52)
--- NOTE | 2021-02-02 16:52 | P.PN ---
Subjective Progress Note Date: 02/02/21 Kamryn Martin is a 60 yo F with history of recent diverticulitis with abscess s/p colectamy and ostomy creation who was recently discharged a few weeks ago. She states that over the past few days she has been having more abdominal pain around the RLQ and near her ventral incision. She continues to have good ostomy output. No nausea, vomiting, fevers or chills. She did complete her abx a few weeks ago. On presentation vitals stable, WBC 18k, lipase 400, CT abd/pelvis no acute process. 01/29/2021 reports yesterday she experienced spasms along the right lateral side of her upper and lower abdominal quadrants. .Maintained on IV antibiotics. Tolerating clear liquids with no nausea, vomiting. Afebrile, recent labs reporting WBC trending down, 14.5, hemoglobin 13.2. CBC pending. Denies chest pain, palpitations or shortness of breath. 01/30/21 evaluated by SUPERVISOR [employer]/oncology secondary to vaginal spotting-no active bleeding per their exam, reported. No gynecological intervention recommended at this time. Hemoglobin 12.1, platelets 294. Responding well to Zosyn, Afebrile, normal WBC. Ultrasound of abdomen reporting head and tail of pancreas nonvisualized due to overlying bowel gas, left kidney not visualized, intercostal imaging limiting evaluation of liver, hepatomegaly and hepatic steatosis, mid and distal aorta not visualized due to overlying bowel gas, hydropic distended gallbladder with sludge, no discrete gallstones, no gallbladder wall thickening, negative Willard sign,, bile duct measures 7.1 mm, minimally enlarged, no intrahepatic biliary dilatation, small obstructing lesion not excluded-further recommendations from surgery pending. Feels better this morning, minimal appetite, denies nausea. Reports pain present but improving; more so with movement. Denies chest pain, palpitations or shortness of breath. 02/02/2021 tolerating soft diet with no nausea or vomiting. Diet intake approximately 50%. Colostomy with minimal formed stool. Receiving morphine for pain, reports less tenderness to the right side of colostomy. Afebrile, normal WBC, hemoglobin 12.1, platelets 294. Renal function stable. Objective - Vital Signs Vital signs: Vital Signs Temp 98.0 F 02/02/21 11:39 Pulse 65 02/02/21 11:39 Resp 16 02/02/21 11:39 BP 124/76 02/02/21 11:39 Pulse Ox 95 02/02/21 11:39 Intake & Output 02/01/21 02/02/21 02/02/21 18:59 06:59 18:59 Intake Total 1000 Balance 1000 Intake: Intake, IV Titration 1000 Amount Piperacillin-Tazobactam 3 100 .375 gm In Sodium Chloride 0.9% 100 ml @ 25 mls/hr IVPB Q8HR [facility] Rx# :[id number] Sodium Chloride 0.9% 1, 900 000 ml @ 75 mls/hr IV . [id number] [facility] Rx#:[id number] Other: Voiding Method Toilet # Voids 2 - Exam General: Sitting up in bed, NAD. Vitals reviewed Eyes: PERRL, EOMI, conjunctiva normal HENT: normocephalic, mucus membranes moist Neck: supple, no JVD Lungs: normal respiratory effort, fine bibasilar crackles. CV: Regular rate and rhythm, no murmur. Peripheral pulses 2+ Abdomen: soft, nondistended, no organomegaly. Decreased TTP R sided. ostomy healthy Skin: warm and dry. Neuro: A&Ox3, normal mood and affect - Labs CBC & Chem 7: 01/30/21 05:01 01/30/21 05:01 Assessment and Plan Assessment: 1. Abdominal pain s/p recent colectomy and ostomy creation. Suspect partial SBO vs colitis. Ultrasound reporting hydropic distended gallbladder with sludge- conservative treatment recommended related to recent abdominal surgery. Ileus Atelectasis Plan: Continue on current medication regime ,monitoring and symptomatic treatment. Maintain IV antibiotics. MiraLAX added to med regimen. Pain management adjusted to scheduled Anabel with morphine only for breakthrough pain pen. Increase ambulation as tolerated. Discharge planning in progress for tomorrow, pending surgery's clearance. The impression and plan of care has been dictated as directed. : I performed a history and examination of this patient, discussed the same with the dictator. I agree with the dictator's note ,documented as a scribe. Any additional findings or plans will be noted.
[2021-02-03 04:20] VITALS: BP 146/86; PULSE 66; TEMP 97.9
[2021-02-03] MEDS: MORPHINE SULFATE 4 MG/ML SYRINGE IV PRN (05:19)
[2021-02-03] MEDS: MULTIVITAMINS, THERA 1 EACH TAB PO SCH (09:16)
[2021-02-03] MEDS: HYDROcodone/APAP 5-325MG 1 EACH TAB PO SCH (09:16)
[2021-02-03] MEDS: PIPERACILLIN-TAZOBACTAM 3.375 GM in SODIUM CHLORIDE 0.9% 100 ML IVPB SCH (09:16)
[2021-02-03] MEDS: polyethylene glycoL 3350 17 GM POWD.PACK PO SCH (09:16)
[2021-02-03] MEDS: DOCUSATE 100 MG CAP PO SCH (09:16)
[2021-02-03] MEDS: PANTOPRAZOLE 40 MG TABLET PO SCH (09:17)
[2021-02-03] MEDS: ENOXAPARIN 40 MG/0.4 ML SYRINGE SQ SCH (09:17)
[2021-02-03] MEDS: SODIUM CHLORIDE 0.9% 1,000 ML IV SCH (09:17)
--- NOTE | 2021-02-03 10:03 | P.DS ---
Providers Date of admission: 01/27/21 23:09 Expected date of discharge: 02/03/21 Attending physician: Santiago Berg MD Consults: 01/27/21 23:29 Consult Physician Routine Consulting Provider: Candice Leo Consult Reason/Comments: Diverticulitis, ileus Do you want consulting provider notified?: Yes 01/29/21 12:14 Consult Physician Routine Consulting Provider: Bekah Platt Consult Reason/Comments: vaginal bleeding Do you want consulting provider notified?: Yes Primary care physician: [facility] Course: Final Diagnoses: Abdominal pain s/p recent colectomy and ostomy creation. Suspect colitis secondary to constipation. Ultrasound reporting hydropic distended gallbladder with sludge-conservative treatment recommended related to recent abdominal ayala rgery. Ileus Atelectasis Hospital course:Kamryn Martin is a 60 yo F with history of recent diverticulitis with abscess s/p colectamy and ostomy creation who was recently discharged a few weeks ago. She states that over the past few days she has been having more abdominal pain around the RLQ and near her ventral incision. She continues to have good ostomy output. No nausea, vomiting, fevers or chills. She did complete her abx a few weeks ago. On presentation vitals stable, WBC 18k, lipase 400, CT abd/pelvis no acute process. 01/29/2021 reports yesterday she experienced spasms along the right lateral side of her upper and lower abdominal quadrants. .Maintained on IV antibiotics. Tolerating clear liquids with no nausea, vomiting. Afebrile, recent labs reporting WBC trending down, 14.5, hemoglobin 13.2. CBC pending. Denies chest pain, palpitations or shortness of breath. 01/30/21 evaluated by EMBOSSER APPRENTICE/oncology secondary to vaginal spotting-no active bleeding per their exam, reported. No gynecological intervention recommended at this time. Hemoglobin 12.1, platelets 294. Responding well to Zosyn, Afebrile, normal WBC. Ultrasound of abdomen reporting head and tail of pancreas no nvisualized due to overlying bowel gas, left kidney not visualized, intercostal imaging limiting evaluation of liver, hepatomegaly and hepatic steatosis, mid and distal aorta not visualized due to overlying bowel gas, hydropic distended gallbladder with sludge, no discrete gallstones, no gallbladder wall thickening, negative Willard sign,, bile duct measures 7.1 mm, minimally enlarged, no intrahepatic biliary dilatation, small obstructing lesion not excluded-further recommendations from surgery pending. Feels better this morning, minimal appetite, denies nausea. Reports pain present but improving; more so with movement. Denies chest pain, palpitations or shortness of breath. 02/02/2021 tolerating soft diet with no nausea or vomiting. Diet intake approximately 50%. Colostomy with minimal formed stool. Receiving morphine for pain, reports less tenderness to the right side of colostomy. Afebrile, normal WBC, hemoglobin 12.1, platelets 294. Renal function stable. Significant clinical improvement. MiraLAX added in addition to Colace yesterday. Colostomy with loose stool, pain controlled. Tolerating diet.Denies nausea, vomiting. Ambulating, tolerating exertion well. Denies chest pain, palpitations or shortness of breath. Cleared by surgery for discharge. Patient will be discharged home today in a stable condition with guarded prognosis. The impression and plan of care has been dictated as directed. : I performed a history and examination of this patient, discussed the same with the dictator. I agree with the dictator's note ,documented as a scribe. Any ad ditional findings or plans will be noted. Patient Condition at Discharge: Stable Plan - Discharge Summary New Discharge Prescriptions: New polyethylene glycoL 3350 [Miralax] 17 gm PO DAILY powd.pack HYDROcodone/APAP 5-325MG [[place] 5-325] 1 each PO Q6H PRN #12 tab PRN Reason: Pain Docusate [Colace] 100 mg PO BID cap Continue Multivitamins, Thera [Multivitamin (formulary)] 1 tab PO DAILY Discharge Medication List Multivitamins, Thera [Multivitamin (formulary)] 1 tab PO DAILY 01/27/21 [History] Docusate [Colace] 100 mg PO BID cap 02/03/21 [Rx] HYDROcodone/APAP 5-325MG [[place] 5-325] 1 each PO Q6H PRN #12 tab 02/03/21 [Rx] polyethylene glycoL 3350 [Miralax] 17 gm PO DAILY powd.pack 02/03/21 [Rx] Follow up Appointment(s)/Referral(s): Candice Leo MD [STAFF PHYSICIAN] - 02/10/21 [facility], [NON-STAFF] - 1-2 Days Lennie Price MD [Primary Care Provider] - 3 Days Patient Instructions/Handouts: Low Fat Diet (DC)
--- NOTE | 2021-02-03 11:12 | P.PN ---
Subjective Progress Note Date: 02/03/21 CHIEF COMPLAINT: Abdominal pain HISTORY OF PRESENT ILLNESS: Surgical service is following in regards to dontae georges's abdominal pain. Patient still complains of some right upper quadrant pain but it has decreased since admission. She denies any nausea or vomiting. She is tolerating diet. Her stool output through the ostomy has shown improvement with laxative and stool softener. Patient is sitting at bedside chair. She feels ready for discharge home. She is requesting to be seen by dietitian for low-fat diet recommendations. Afebrile PHYSICAL EXAM: VITAL SIGNS: Reviewed GENERAL: Well-developed in no acute distress. HEENT: No sclera icterus. Extraocular movements grossly intact. Moist buccal mucosa. Head is atraumatic, normocephalic. Hears conversational speech. No nasal drainage. NECK: Supple without lymphadenopathy. CHEST: Non-labored respirations and equal bilateral excursions. CARDIOVASCULAR: Palpable 2+ radial pulses. ABDOMEN: Soft. Nondistended. minimal tenderness Right upper quadrant. Incision site clean dry and intact. Ostomy functioning with small amount of stool. MUSCULOSKELETAL: No clubbing or cyanosis. NEUROLOGIC: No focal or lateralizing signs. Cranial nerves II through XII grossly intact. PSYCH: Appropriate affect. Alert and oriented to person, place and time. SKIN: Well perfused. Good skin turgor. ASSESSMENT: 1. New Right upper quadrant abdominal pain with ultrasound showing evidence of hydropic distended gallbladder with sludge 2. Abdominal pain at incision site and ostomy likely secondary to straining from patient's cough 3. 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 4. Ileus improved PLAN: -Recommend conservative management of distended gallbladder at this time due to patient having had recent abdominal surgery -Continue low-fat diet -Consult dietitian regarding low fat diet -Patient can be discharge from surgical standpoint Physician Large Engine Assembler note has been reviewed by physician. Signing provider agrees with the documented findings, assessment, and plan of care. Objective - Vital Signs Vital signs: Vital Signs Temp 97.9 F 02/03/21 04:19 Pulse 66 02/03/21 04:19 Resp 16 02/03/21 04:19 BP 146/86 02/03/21 04:19 Pulse Ox 91 L 02/03/21 04:19 Intake & Output 02/02/21 02/03/2121 18:59 06:59 18:59 Intake Total 500 950 Balance 500 950 Intake: Intake, IV Titration 500 Amount Piperacillin-Tazobactam 3 200 .375 gm In Sodium Chloride 0.9% 100 ml @ 25 mls/hr IVPB Q8HR [facility] Rx# :[id number] Sodium Chloride 0.9% 1, 300 000 ml @ 75 mls/hr IV . [id number] [facility] Rx#:[id number] Oral 950 Other: Voiding Method Toilet Toilet # Voids 3 - Labs CBC & Chem 7: 01/30/21 05:01 01/30/21 05:01
== END 2021-02-03 14:42 | disposition home or self-care (01) | DRG 389 ==
LOC: EC 20:01 → 5NMEDONC 23:09
PROVIDERS: ADMIT Family Medicine; ATTEND Family Medicine
DX: K56.7 Ileus, unspecified (principal); J98.11 Atelectasis; K81.9 Cholecystitis, unspecified; E78.5 Hyperlipidemia, unspecified; I10 Essential (primary) hypertension; J44.9 Chronic obstructive pulmonary disease, unspecified; M79.7 Fibromyalgia; Z86.711 Personal history of pulmonary embolism; M47.9 Spondylosis, unspecified; F32.9 Major depressive disorder, single episode, unspecified; F41.9 Anxiety disorder, unspecified; Z87.891 Personal history of nicotine dependence; Z90.710 Acquired absence of both cervix and uterus; Z82.49 Family history of ischemic heart disease and other diseases of the circulatory system; Z80.1 Family history of malignant neoplasm of trachea, bronchus and lung; Z82.0 Family history of epilepsy and other diseases of the nervous system; Z80.6 Family history of leukemia; Z90.49 Acquired absence of other specified parts of digestive tract; Z93.3 Colostomy status; Z72.0 Tobacco use; K82.8 Other specified diseases of gallbladder; N95.2 Postmenopausal atrophic vaginitis; M41.9 Scoliosis, unspecified; N76.0 Acute vaginitis; Z80.49 Family history of malignant neoplasm of other genital organs; Z86.73 Personal history of transient ischemic attack (TIA), and cerebral infarction without residual deficits; I67.1 Cerebral aneurysm, nonruptured
CPT/HCPCS: 36415; 74177; 76700; 80048; 80053; 80323; 81001; 82150; 83690; 85025; 96361; 96374; 96375; 99285

== ENCOUNTER → 2021-04-10 | Outpatient (CLI) | payer OTHER ==
[2021-04-10 17:10] LABS: HCT 46.9 % (34.0-46.0); HGB 15.1 gm/dL (11.4-16.0); MCHC 32.2 g/dL (31.0-37.0); MCV 89.9 fL (80.0-100.0); Mean Platelet Volume 7.3; Platelet Count 306 k/uL (150-450); RBC 5.22 m/uL (3.80-5.40); RDW 14.4 % (11.5-15.5); WBC 8.5 k/uL (3.8-10.6)
[2021-04-10 17:28] LABS: ALT 13 U/L (4-34); AST 23 U/L (14-36); African American GFR (CKD) >90 (>60 ml/min/1.73 sqM); Albumin 4.3 g/dL (3.5-5.0); Alkaline Phosphatase 77 U/L (38-126); Anion Gap 9 mmol/L; Blood Urea Nitrogen 14 mg/dL (7-17); Calcium 10.3 mg/dL (8.4-10.2); Carbon Dioxide 27 mmol/L (22-30); Chloride 104 mmol/L (98-107); Glucose 83 mg/dL (74-99); Non-African American GFR(CKD) >90 (>60 ml/min/1.73 sqM); Potassium 4.3 mmol/L (3.5-5.1); Sodium 140 mmol/L (137-145); Total Bilirubin 0.4 mg/dL (0.2-1.3); Total Protein 7.8 g/dL (6.3-8.2)
== END | disposition home or self-care (01) ==
LOC: LABPAT 15:21
PROVIDERS: ATTEND Surgery Plastic and Reconstructive Surgery
DX: Z01.810 Encounter for preprocedural cardiovascular examination (principal)
CPT/HCPCS: 36415; 80053; 85027

== ENCOUNTER 2021-04-17 07:30 | Inpatient (IN) | payer OTHER ==
--- NOTE | 2021-04-17 06:46 | P.GSHP ---
History of Present Illness H&P Date: 04/17/21 CHIEF COMPLAINT: Sigmoid diverticulitis HISTORY OF PRESENT ILLNESS: The patient is a 60-year-old female with sigmoid diverticulitis and descending colostomy due to fistula. She presents for colostomy reversal. PAST MEDICAL HISTORY: Please see list. PAST SURGICAL HISTORY: Please see list. MEDICATIONS: Please see list. ALLERGIES: Please see list. SOCIAL HISTORY: No illicit drug use FAMILY HISTORY: No reports of Crohn disease or ulcerative colitis. REVIEW OF ORGAN SYSTEMS: CONSTITUTIONAL: Denies any fever or chills. HEENT: Denies any trouble with vision or nosebleeds. No difficulty swallowing. LYMPHATIC: The patient denies any lumps and bumps around the neck. ENDOCRINE: Denies any thyroid disorders. Denies blood sugar glucose intolerance. RESPIRATORY: Denies pneumonia. Denies any troubles with breathing or dyspnea on exertion. CARDIOVASCULAR: Denies any chest pain, palpitations, or recent heart attacks. GASTROINTESTINAL: Has chronic diverticulitis. GENITOURINARY: Has increased urinary frequency. MUSCULOSKELETAL: Has back pain, stiffness, joint arthritis. NEUROLOGIC: Denies any numbness or tingling along the distal extremities. No seizure disorders or headaches. PSYCHIATRIC: Has depression or suidical ideation. HEMATOLOGIC: Denies any abnormal bleeding or bruising. PHYSICAL EXAM: VITAL SIGNS: Stable GENERAL: Well-developed pleasant in no acute distress. HEENT: No scleral icterus. Extraocular movements grossly intact. Moist buccal mucosa. He is hard of hearing. NECK: Supple without lymphadenopathy. CHEST: Unlabored respirations. Equal bilateral excursions. CARDIOVASCULAR: Regular rate and rhythm. Distal 2+ pulses. ABDOMEN: Has descending colostomy. MUSCULOSKELETAL: No clubbing, cyanosis, or edema. NERUO: Cranial nerves 2-12 grossly intact. PSYCH: Alert and oriented to person place and time. ASSESSMENT: 1. Sigmoid perforated diverticulitis 2. Descending colostomy status. PLAN: 1. Benefits and risks of surgical open colostomy reversal was reviewed in detail. 2. Enhanced colon recovery program. 3. DVT prophylaxis. 4. Antibiotic prophylaxis. 5. Inpatient hospitalization greater than 2 nights. Past Medical History Past Medical History: Asthma, COPD, Fibromyalgia, Hyperlipidemia, Hypertension, Musculoskeletal Disorder, Osteoarthritis (OA), Pulmonary Embolus (PE) Additional Past Medical History / Comment(s): CHRONIC DIVERTICULITIS. Pancreatitis, chronic pain, DDD, DJD, cervical/back pain/bilateral scoliosis, spondylosis, neuropathy bilat hands and feet, pulmonary embolism R lung, brain aneurysm being monitored. History of Any Multi-Drug Resistant Organisms: None Reported Past Surgical History: Bowel Resection, Hysterectomy, Tubal Ligation Additional Past Surgical History / Comment(s): DECEMBER 2020 BOWEL RESECTION WITH COLOSTOMY. D&C, angiograms d/t cerebral aneurysm. Past Anesthesia/Blood Transfusion Reactions: No Reported Reaction, Motion Sickness Additional Past Anesthesia/Blood Transfusion Reaction / Comment(s): motion sick as a child Past Psychological History: Anxiety, Depression Additional Psychological History / Comment(s): Pt lives with her son and his fiancee. Smoking Status: Former smoker Past Alcohol Use History: None Reported Additional Past Alcohol Use History / Comment(s): Pt started smoking in 1977, 1/2 ppd smoker, down to few cigarettes daily. She drank heavily in the past but has not drank alcohol since 2009. Past Drug Use History: Marijuana Additional Drug Use History / Comment(s): uses daily - Past Family History Mother Family Medical History: Cancer, Coronary Artery Disease (CAD) Additional Family Medical History / Comment(s): Mother had uterine cancer. Sister(s) Family Medical History: Cancer, Neurologic Disorder Additional Family Medical History / Comment(s): parkinsonism; uterine, lung cancer. Brother(s) Family Medical History: Cancer Additional Family Medical History / Comment(s): Pt had 2 brothers with cancer - 1 leukemia. Medications and Allergies Home Medications Medication Instructions Recorded Confirmed Type Multivitamins, Thera [Multivitamin 1 tab PO DAILY 01/27/21 04/16/21 History (formulary)] polyethylene glycoL 3350 [Miralax] 17 gm PO DAILY powd.pack 02/03/21 04/16/21 Rx Albuterol Inhaler [Ventolin Hfa 1 puff INHALATION DIRECTED PRN 04/16/21 04/16/21 History Inhaler] Allergies Allergy/AdvReac Type Severity Reaction Status Date / Time ibuprofen AdvReac Abdominal Verified 01/27/21 22:15 Pain
[~2021-04-17 07:30] MED LIST: ACETAMINOPHEN TAB 500 MG TAB PO PRN; ALVIMOPAN 12 MG CAPSULE PO PRN; Antibiotics per Pharmacy 1 EACH MISC MISCELLANE PRN; DEXAMETHASONE SOD PHOSPHATE 4 MG/ML 1 ML VIAL IV ONE; GABAPENTIN 300 MG CAP PO PRN; HEPARIN SODIUM,PORCINE/PF 5,000 UNIT/0.5 ML SYRINGE SQ PRN; HYDROmorphone 0.5 MG/0.5 ML SYRINGE IVP PRN; MIDAZOLAM 2 MG/2 ML VIAL IV PRN; ONDANSETRON 4 MG/2 ML VIAL IVP ONE; SCOPOLAMINE 1.5MG/72HR PATCH TRANSDERM ONE; SCOPOLAMINE 1.5MG/72HR PATCH TRANSDERM PRN; metroNIDAZOLE-NS PMX 500 MG in SALINE 1 100ML.BAG IVPB PRN
[2021-04-17] MEDS: LACTATED RINGERS 1,000 ML IV SCH (14:31)
[2021-04-17 14:35] LABS: Glucose,Whole Blood 84 mg/dL (75-99)
[2021-04-17] MEDS ORDERED: LIDOCAINE 1% INJ 10MG/ML (20 ML MDV) ONE ×2 (14:47→17:53)
[2021-04-17] MEDS ORDERED: fentaNYL (PF) 50 MCG/ML 2 ML AMP IVP ONE ×2 (16:35→16:43)
[2021-04-17] MEDS ORDERED: MIDAZOLAM 2 MG/2 ML VIAL IVP ONE ×2 (16:35→16:43)
--- NOTE | 2021-04-17 17:38 | P.ANPRN ---
Procedure Note - Anesthesia - Nerve Block Performed Bilateral Rectus Abdominis Single Time Out Performed: Yes (3755) Date of Procedure: 04/17/21 Procedure Start Time: 16:36 Procedure Stop Time: 16:41 Location of Patient: PreOp Indication: Acute Post-Operative Pain, Requested by Surgeon Specifically requested for management of pain by DrDouglas: Candice Leo Sedation Type: Sedate with meaningful contact maintained Preparation: Sterile Prep Position: Supine Catheter: None Needle Types: Pajunk Needle Gauge: 21 Ultrasound used to visualize needle placement: Yes Ultrasound used to observe medication spread: Yes Injectate: 0.5% Ropivacaine (see comment for volume) (15cc + nacl 15cc pf) Blood Aspirated: No Pain Paresthesia on Injection Noted: No Resistance on Injection: Normal Image Stored and Saved: Yes Events: Uneventful and Well Tolerated
[2021-04-17] MEDS ORDERED: SUCCINYLCHOLINE CHLORIDE 100 MG/5 ML SYR IV ONE (17:53)
[2021-04-17] MEDS ORDERED: GLYCOPYRROLATE 0.2 MG/ML 2 ML VIAL ONE (17:53)
[2021-04-17] MEDS ORDERED: ROPIVACAINE 5 MG/ML 30 ML VIAL ONE (17:53)
[2021-04-17] MEDS ORDERED: PROPOFOL 10 MG/ML 20 ML VIAL IV ONE (17:53)
[2021-04-17] MEDS ORDERED: NEOSTIGMINE 1 MG/ML 10 ML VIAL ONE (17:53)
[2021-04-17] MEDS ORDERED: KETAMINE 10 MG/ML 20 ML VIAL ONE (17:53)
[2021-04-17] MEDS ORDERED: ROCURONIUM 10 MG/ML (5 ML VIAL) IV ONE (17:53)
[2021-04-17] MEDS ORDERED: HYDROmorphone (PF) 1 MG/ML ONE (17:53)
[2021-04-17] MEDS ORDERED: fentaNYL (PF) 50 MCG/ML 2 ML AMP ONE (17:53)
[2021-04-17] MEDS ORDERED: MIDAZOLAM 2 MG/2 ML VIAL ONE (17:53)
[2021-04-17] MEDS ORDERED: LACTATED RINGERS 1,000 ML IV ONE ×2 (18:39→22:30)
[2021-04-17] MEDS ORDERED: BENZOCAINE/MENTHOL LOZENG 1 EACH LOZENGE MUCOUS MEM PRN (22:58)
[2021-04-17] MEDS ORDERED: METOCLOPRAMIDE 5 MG/ML 2 ML VIAL IVP PRN (22:58)
[2021-04-17] MEDS ORDERED: HYDROmorphone 0.5 MG/0.5 ML SYRINGE IVP ONE ×2 (23:20→23:26)
[2021-04-18] MEDS: ACETAMINOPHEN IV (For NPO) 1,000 MG in EMPTY BAG 1 BAG IVPB SCH ×4 (00:35→18:13)
[2021-04-18] MEDS: SODIUM CHLORIDE 0.9% 1,000 ML IV SCH ×2 (00:35→23:50)
[2021-04-18] MEDS: ONDANSETRON 4 MG/2 ML VIAL IVP SCH ×5 (00:42→23:46)
[2021-04-18] MEDS: metroNIDAZOLE-NS PMX 500 MG in SALINE 1 100ML.BAG IVPB SCH ×3 (01:01→19:24)
[2021-04-18] MEDS: PIPERACILLIN-TAZOBACTAM 3.375 GM in SODIUM CHLORIDE 0.9% 100 ML IVPB SCH ×4 (02:24→23:47)
[2021-04-18] MEDS: HYDROmorphone 1 MG/ML 1 ML SYRINGE IVP PRN ×4 (05:37→18:21)
[2021-04-18] MEDS: LACTATED RINGERS 1,000 ML IV SCH (06:12)
[2021-04-18 07:36] LABS: Basophils % (A) 0 %; Eosinophils % (A) 0 %; HCT 46.7 % (34.0-46.0); HGB 14.9 gm/dL (11.4-16.0); Lymphocytes # (A) 1.5 k/uL (1.0-4.8); Lymphocytes % (A) 8 %; MCH 28.6 pg (25.0-35.0); MCHC 31.9 g/dL (31.0-37.0); MCV 89.8 fL (80.0-100.0); Mean Platelet Volume 6.9; Monocytes % (A) 6 %; Neutrophils # (A) 14.9 k/uL (1.3-7.7); Neutrophils % (A) 85 %; Platelet Count 322 k/uL (150-450); RBC 5.19 m/uL (3.80-5.40); RDW 14.1 % (11.5-15.5); WBC 17.5 k/uL (3.8-10.6)
[2021-04-18 08:13] LABS: African American GFR (CKD) >90 (>60 ml/min/1.73 sqM); Anion Gap 6 mmol/L; Blood Urea Nitrogen 13 mg/dL (7-17); Calcium 8.7 mg/dL (8.4-10.2); Carbon Dioxide 24 mmol/L (22-30); Chloride 107 mmol/L (98-107); Glucose 135 mg/dL (74-99); Non-African American GFR(CKD) >90 (>60 ml/min/1.73 sqM); Potassium 4.2 mmol/L (3.5-5.1); Sodium 137 mmol/L (137-145)
[2021-04-18] MEDS: ALVIMOPAN 12 MG CAPSULE PO SCH ×2 (08:56→20:21)
[2021-04-18] MEDS: SIMETHICONE 40 MG/0.6 ML DROPS 2,000 MG/30 ML BOTTLE PO SCH ×4 (08:56→20:21)
[2021-04-18] MEDS ORDERED: HEPARIN SODIUM,PORCINE/PF 5,000 UNIT/0.5 ML SYRINGE SQ SCH (09:00)
--- NOTE | 2021-04-18 10:37 | P.OP ---
Date of Procedure: 04/17/21 Description of Procedure: SURGEON: PHIL BERGMAN MD Preoperative Diagnosis: 1. Sigmoid diverticulitis with abscess and colovesical fistula 2. Descending colostomy status from perforated diverticulitis with colovesical and colovaginal fistula 3. Tobacco use disorder in remission 4. Chronic obstructive pulmonary disease with her asthma 5. Fibromyalgia 6. Hyperlipidemia 7. History of pulmonary embolism 8. Neuropathy 9. History of brain aneurysm 10. History of pancreatitis 11. Depressive disorder Postoperative Diagnosis: 1. Sigmoid diverticulitis with abscess and colovesical fistula 2. Descending colostomy status from perforated diverticulitis with colovesical and colovaginal fistula 3. Tobacco use disorder in remission 4. Chronic obstructive pulmonary disease with her asthma 5. Fibromyalgia 6. Hyperlipidemia 7. History of pulmonary embolism 8. Neuropathy 9. History of brain aneurysm 10. History of pancreatitis 11. 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 Severe intra-abdominal and intrapelvic adhesions Procedure(s) Performed: 1. Extensive lysis of intra-abdominal and intrapelvic adhesions over 3 hours 2. Low anterior resection with sigmoid colectomy 3. Takedown and repair of enteric enteric fistula 4. Takedown and repair of colovesical fistula 5. Takedown and repair of colovaginal fistula 6. Descending colostomy reversal using 29 mm EEA 7. Application of universal PREVENA incisional wound VAC along colostomy closure site and midline incision 8. Intraoperative colonoscopy for sigmoidoscopy Anesthesia: GETA, local, regional block Estimated Blood Loss (ml): 100 Pathology: other (Ascending colostomy, sigmoid colon, donuts) Condition: stable Disposition: floor Operative Findings: 1. Intra-abdominal adhesions over 3 hours lysis of adhesions including small bowel to abdominal wall, interloop adhesions, pelvic adhesions 2. Intraoperative colonoscopy performed without leak. 3. Moderately redundant transverse colon extending into pelvis 4. Resolved pelvic abscess with residual enteroenteric fistula to left lower quadrant and sigmoid colon 5. Dense lower midline cicatrix from intrapelvic phlegmon 6. EEA using 29 mm stapler with end to end anastomosis 7. Complete full-thickness donuts 8. Colovesical fistula and colovaginal fistula resected using Covidien tri- stapler 60 mm Black loads. 9. Skin closure using skin shira after cleansing the skin with dilute hydrogen peroxide INDICATIONS: The patient is a 60-year-old female with complicated perforated diverticulitis with colovaginal colovesical fistula treated with Cummings's procedure. She presents for colostomy reversal. She underwent an enhanced colon recovery program. Benefits and risks of surgical intervention were described in detail including but not limited to leaks, infection, blood loss. Informed consent was obtained. DESCRIPTION: Preoperatively, patient had an erector spinae block. The patient was brought to the operating room. After general induction, a Barton catheter was placed. The abdomen was prepped and draped in standard sterile fashion. Ioban draping was also placed. A 4 x 4 was used to cover her colostomy site. Prior to incision, a timeout protocol was confirmed with surgical team regarding patient's name including procedures to be performed. Preoperative medications were confirmed. Attention was brought to the abdomen whereby a well healed lower midline incision was encountered. Next, a #10 blade was used to enter along the epigastrium and extended down to the pubis. Carefully the abdomen was entered using electro- Bovie cautery. The greater omentum was adhered to the abdominal wall. The transverse colon was highly redundant extending into the pelvis. Adhesions were addressed with a combination of blunt dissection with electro- Bovie cautery and Enseal. Interloop adhesions were similarly addressed using Metzenbaum scissors. Extensive intrapelvic adhesions involving the distal jejunum and ileum to the left lower quadrant was found with a enteric enteric fistula. The fistula was divided sharply and adherent to the remnant sigmoid colon. The small bowel fistula sites were closed using interrupted 3-0 Vicryl. All adhesions were sharply divided using Metzenbaum and Bovie cautery from the ligament of Treitz to the ileocecal valve. Extensive lysis adhesions were performed for over 3 hours. The small bowel was found adherent to the deep pelvis and remnant sigmoid colon which was also divided. An active colovesical fistula including colovaginal fistula was identified involving the posterior dome of the bladder. Next, the rectal stump was palpated. After blunt and sharp divisions of adhesions of the sigmoid colon to the bladder and vagina, the fistulas were isolated as one mass. The top of the rectum and sigmoid rectal junction was palpated and soft. A Contour stapler was fired across the sigmoid rectum junction for inferior resection. Next the fistulas we re divided using Covidien tri-stapler 60 mm black loads with multiple fires. The specimen was passed off. Attention was brought to the colostomy site where #10 blade was used to incise around the colostomy into the subcutaneous tissue in an elliptical transverse fashion. Bovie cautery was used to circumferentially dissect the ostomy to the fascia. From within the abdomen, the descending colostomy was carefully dissected free from the abdominal wall. The descending colostomy was delivered into the abdominal cavity. Through the colostomy, sizers were used and a 29 mm anvil was selected. The 29 mm anvil attached to the green spike was inserted into the open colostomy after placing a 3-0 silk tie to the anvil. The descending colostomy was closed using Covidien 60 mm Black load. The suture was used to navigate the anvil through the staple line in preparation for colorectal anastomosis. Next, attention was brought to the rectum were sizers were used as dilators for the rectal stump. A powered 29 mm Ethicon circular stapler was entered into the rectum to the staple line. The anvil and circular stapler were mated for 1 minute. The donuts were inspected and intact. I went to the foot of the bed. An intraoperative colonoscope was used for flexible sigmoidoscopy and entered into the rectum. The abdomen was irrigated to check for leak. No evidence leak was identified. I re-scrubbed into the case. All irrigation fluid was removed. Hemostasis was checked. Attention was brought to the colostomy site. The colostomy site was oversewn via the peritoneum side using 0 Vicryl in a running fashion. The abdomen was inspected for hemostasis and closed using 2 sutures of double-stranded 0 PDS from inferiorly and superiorly. All incisions and wounds were cleansed with dilute hydrogen peroxide. Along the skin site of the colostomy, the wound was irrigated using dilute hydrogen peroxide. 0-Vicryl was used for closure of the fascia and subcutaneous portion. The colostomy site was closed transversely using skin shira. All incisions were closed using stainless skin shira. A customizable incisional Prevena wound VAC system was placed over the skin colostomy site and at the midline. The apparatus was set to suction. At the end of the procedure, needle, sponge, and instrument count had been verified correct by the surgical specialist. The patient was sent to the postanesthesia care unit in stable condition. Intraoperative findings were described to the patient's family.
--- NOTE | 2021-04-18 12:07 | P.PN ---
Subjective Progress Note Date: 04/18/21 Principal diagnosis: Colostomy reversal Patient feeling well today. Appropriate level of discomfort postoperatively. She feels tired. White blood cell count 17.5. Vitals are stable. Objective - Vital Signs Vital signs: Vital Signs Temp 97.9 F 04/18/21 08:00 Pulse 82 04/18/21 08:00 Resp 18 04/18/21 08:00 BP 105/64 04/18/21 08:00 Pulse Ox 94 L 04/18/21 08:00 Intake & Output 04/17/21 04/18/21 04/18/21 18:59 06:59 18:59 Intake Total 2050 530 Output Total 500 275 Balance 1550 255 Weight 81 kg Intake: IV 2050 500 Oral 30 Output: Urine 400 275 Estimated Blood Loss 100 Other: Voiding Method Indwelling Catheter Indwelling Catheter - Exam Abdomen: Soft, nondistended, dressing clean, mild tenderness - Labs CBC & Chem 7: 04/18/21 06:44 04/18/21 06:44 Labs: Abnormal Lab Results - Last 24 Hours (Table) 04/18/21 04/18/21 Range/Units 06:44 06:44 WBC 17.5 H (3.8-10.6) k/uL Hct 46.7 H (34.0-46.0) % Neutrophils # 14.9 H (1.3-7.7) k/uL Creatinine 0.46 L (0.52-1.04) mg/dL Glucose 135 H (74-99) mg/dL Assessment and Plan (1) Colostomy in place Narrative/Plan: Patient appears to be doing well after colostomy reversal. Recheck labs tomorrow. Continue liquid diet. Gradually increase activity level. Current Visit: No Status: Acute Code(s): Z93.3 - COLOSTOMY STATUS SNOMED Code(s): 032542310
[2021-04-18] MEDS: ENOXAPARIN 40 MG/0.4 ML SYRINGE SQ SCH (15:06)
[2021-04-18] MEDS: PANTOPRAZOLE 40 MG/10 ML VIAL IVP SCH (15:06)
--- NOTE | 2021-04-18 15:09 | HP ---
HISTORY AND PHYSICAL I am covering for Dr. Berg. DATE OF SERVICE: 04/18/2021 REASON FOR CONSULTATION: Advice regarding asthma, COPD and multiple medical issues, requested by Surgery. HISTORY OF PRESENT ILLNESS: This 60-year-old woman with a past medical history of asthma, COPD, fibromyalgia, hypertension, hyperlipidemia, DJD, being followed by Dr. Berg in the outpatient setting, underwent extensive lysis of adhesions as well as low anterior resection with sigmoid colectomy and takedown and repair of the enteroenteric fistula and takedown of the colovesical fistula and colovaginal fistula and colostomy reversal by Dr. Leo. There is no history of any fever, rigors or chills. No history of headache, loss of consciousness, seizures at this time. PAST MEDICAL HISTORY: Asthma, COPD, fibromyalgia, hypertension, hyperlipidemia, history of DJD, history of pulmonary embolism. HOME MEDICATIONS: Home medications are multivitamins, Ventolin, Claritin, Gas-X and Tylenol. ALLERGIES: IBUPROFEN. FAMILY HISTORY: History of CAD and mother had uterine cancer. SOCIAL HISTORY: Previous history of smoking. No history of alcohol intake. REVIEW OF SYSTEMS: ENT: No diminished hearing. No diminished vision. CARDIOVASCULAR SYSTEM: No angina, palpitations. RESPIRATORY SYSTEM: As mentioned earlier. GI: As mentioned earlier. : No dysuria. NERVOUS SYSTEM: No numbness, weakness. ALLERGY/IMMUNOLOGY: No asthma or hay fever. MUSCULOSKELETAL: As mentioned earlier. HEMATOLOGY/ONCOLOGY: As mentioned earlier. ENDOCRINE: As mentioned earlier. CONSTITUTIONAL: As mentioned earlier. DERMATOLOGY: Negative. RHEUMATOLOGY: Negative. PSYCHIATRY: As mentioned earlier. PHYSICAL EXAMINATION: Patient alert and oriented x3. Pulse 82, blood pressure 105/65, respiration 18, temperature 97.9, pulse ox 94% on 3 L. HEENT: Conjunctivae normal. Oral mucosa moist. NECK: No jugular venous distention. No carotid bruit. No lymph node enlargement. CARDIOVASCULAR: S1, S2 muffled. RESPIRATION: Breath sounds diminished at the bases. A few scattered rhonchi and crackles. ABDOMEN: Soft. Status post surgery. Mild diffuse post-surgical tenderness present. Bowel sounds diminished. LEGS: No edema. No swelling. NERVOUS SYSTEM: Higher functions as mentioned earlier. Moves all 4 limbs. No focal motor or sensory deficit. LYMPHATICS: No lymph node palpable in neck, axillae or groin. SKIN: No ulcer, rash, bleeding. JOINTS: No active deforming arthropathy. LABS: WBC 17.2, hemoglobin 14.9. ASSESSMENT: 1. Status post extensive lysis of adhesions and low anterior resection with sigmoid colectomy and takedown and repair of the enteroenteric fistula, colovesical fistula, colovesical fistula and descending colostomy reversal. 2. Increased white count, possibly reactive. 3. Asthma, chronic obstructive pulmonary disease. 4. Fibromyalgia. 5. Hypertension. 6. Hyperlipidemia. 7. History of degenerative joint disease. 8. History of pulmonary embolism. 9. History of chronic diverticulosis. 10.Bowel resection. 11.Anxiety, depression. 12.FULL CODE. RECOMMENDATIONS AND DISCUSSION: In this 60-year-old woman who presented with multiple medical issues, at this time I recommend to continue the current medications, continue symptomatic treatment. I would recommend resuming the home medications, DVT prophylaxis, incentive spirometry, proton pump inhibitors. We will follow the patient closely. Patient may be asked to follow up with Dr. Berg closely. Thank you for letting us participate in the care of this patient. Home medication will be continued. MMODL / IJN: [id number] /
[2021-04-18 16:11] LABS: Prothrombin Time 11.1 sec (9.0-12.0)
[2021-04-18] MEDS: KETOROLAC 15 MG/ML 1 ML VIAL IVP SCH ×2 (18:12→23:46)
[2021-04-19] MEDS: metroNIDAZOLE-NS PMX 500 MG in SALINE 1 100ML.BAG IVPB SCH ×4 (02:17→23:42)
[2021-04-19] MEDS: HYDROmorphone 1 MG/ML 1 ML SYRINGE IVP PRN ×2 (03:38→14:03)
[2021-04-19] MEDS: KETOROLAC 15 MG/ML 1 ML VIAL IVP SCH ×4 (05:26→23:41)
[2021-04-19] MEDS: ONDANSETRON 4 MG/2 ML VIAL IVP SCH ×4 (05:26→23:41)
[2021-04-19 05:56] LABS: Appearance,Urine Cloudy (Clear); Bilirubin,Urine Negative (Negative); Blood,Urine Small (Negative); Color,Urine Yellow; Glucose,Urine (UA) Negative (Negative); Ketones,Urine 1+ (Negative); Leukocyte Esterase,Urine Negative (Negative); Mucus,Urine Rare /hpf; Nitrite,Urine Negative (Negative); PH, Urine 6.5 (5.0-8.0); Protein,Urine Negative (Negative); RBC,Urine 18 /hpf (0-5); Specific Gravity,Urine 1.013 (1.001-1.035); Squamous Epithelial Cell,Urine 1 /hpf (0-4); Urobilinogen,Urine <2.0 mg/dL (<2.0); WBC,Urine 2 /hpf (0-5)
[2021-04-19] MEDS: SODIUM CHLORIDE 0.9% 1,000 ML IV SCH ×4 (05:58→23:42)
[2021-04-19] MEDS: PANTOPRAZOLE 40 MG/10 ML VIAL IVP SCH (08:30)
[2021-04-19] MEDS: PIPERACILLIN-TAZOBACTAM 3.375 GM in SODIUM CHLORIDE 0.9% 100 ML IVPB SCH ×3 (08:30→23:41)
[2021-04-19] MEDS: SIMETHICONE 40 MG/0.6 ML DROPS 2,000 MG/30 ML BOTTLE PO SCH ×4 (08:31→23:23)
[2021-04-19] MEDS: ALVIMOPAN 12 MG CAPSULE PO SCH ×2 (08:31→20:36)
[2021-04-19] MEDS: ENOXAPARIN 40 MG/0.4 ML SYRINGE SQ SCH (08:31)
[2021-04-19 09:05] LABS: Basophils # (A) 0.03 X 10*3/uL (0.00-0.10); Basophils % (A) 0.3 %; Eosinophils # (A) 0.04 X 10*3/uL (0.04-0.35); Eosinophils % (A) 0.4 %; HCT 39.7 % (37.2-46.3); HGB 12.6 g/dL (12.0-15.0); Lymphocytes # (A) 1.98 X 10*3/uL (0.90-5.00); Lymphocytes % (A) 17.8 %; MCH 28.3 pg (27.0-32.0); MCHC 31.7 g/dL (32.0-37.0); MCV 89.2 fL (80.0-97.0); Mean Platelet Volume 9.8 fL (9.5-12.2); Monocytes # (A) 1.07 X 10*3/uL (0.20-1.00); Monocytes % (A) 9.6 %; Neutrophils # (A) 7.99 X 10*3/uL (1.80-7.70); Neutrophils % (A) 71.5 %; Platelet Count 247 X 10*3/uL (140-440); RBC 4.45 X 10*6/uL (4.10-5.20); RDW 14.6 % (11.5-14.5); WBC 11.15 X 10*3/uL (4.50-10.00)
[2021-04-19 09:15] LABS: African American GFR (CKD) 115.6 (60.0-200.0); Anion Gap 3.2 mmol/L (4.00-12.00); BUN/Creat Ratio 13.33 Ratio (12.00-20.00); Calcium 8.5 mg/dL (8.7-10.3); Carbon Dioxide 32.8 mmol/L (21.6-31.8); Non-African American GFR(CKD) 99.8 (60.0-200.0); Potassium 3.7 mmol/L (3.5-5.5)
--- NOTE | 2021-04-19 11:09 | P.PN ---
Subjective Progress Note Date: 04/19/21 Principal diagnosis: Colostomy reversal Patient says her pain is gradually improving. Had some nausea this morning. No vomiting. She is hungry for more than clear liquids. No flatus or bowel movement. White blood cell count is improved today. Objective - Vital Signs Vital signs: Vital Signs Temp 98.2 F 04/19/21 08:00 Pulse 71 04/19/21 08:00 Resp 16 04/19/21 08:00 BP 146/76 04/19/21 08:00 Pulse Ox 94 L 04/19/21 08:00 Intake & Output 04/18/21 04/19/21 04/19/21 18:59 06:59 18:59 Intake Total 480 Output Total 300 1050 Balance 180 -1050 Intake: Oral 480 Output: Urine 300 1050 Other: Voiding Method Indwelling Catheter Indwelling Catheter Indwelling Catheter - Exam Abdomen: Soft, mild tenderness, dressing intact, no distention noted - Labs CBC & Chem 7: 04/19/21 05:57 04/19/21 05:57 Labs: Abnormal Lab Results - Last 24 Hours (Table) 04/19/21 04/19/21 04/19/21 Range/Units 05:00 05:57 05:57 WBC 11.15 H (4.50-10.00) X 10*3/uL MCHC 31.7 L (32.0-37.0) g/dL RDW 14.6 H (11.5-14.5) % Neutrophils # 7.99 H (1.80-7.70) X 10*3/uL Monocytes # 1.07 H (0.20-1.00) X 10*3/uL Carbon Dioxide 32.8 H (21.6-31.8) mmol/L Anion Gap 3.20 L (4.00-12.00) mmol/L BUN 8.0 L (9.0-27.0) mg/dL Calcium 8.5 L (8.7-10.3) mg/dL Urine Appearance Cloudy H (Clear) Urine Ketones 1+ H (Negative) Urine Blood Small H (Negative) Urine RBC 18 H (0-5) /hpf Urine Mucus Rare H (None) /hpf Assessment and Plan (1) Colostomy in place Narrative/Plan: Patient seems to be slowly improving. Advance to full liquid diet. Out of bed today. Repeat labs tomorrow. Current Visit: No Status: Acute Code(s): Z93.3 - COLOSTOMY STATUS SNOMED Code(s): 029609216
--- NOTE | 2021-04-19 19:41 | PN ---
PROGRESS NOTE DATE OF SERVICE: 04/19/2021 I am covering for Dr. Berg. This 60-year-old woman who underwent surgery is improving significantly. No chest pain. No palpitations. No other complaints, no abdominal pain. PHYSICAL EXAMINATION: Alert and oriented x3. Pulse 78, blood pressure 120/65, respirations 16, temperature 98.2 pulse ox 93% on 2 L. HEENT: Conjunctivae normal. Oral mucosa moist. NECK: No jugular venous distention. No lymph node enlargement. CARDIOVASCULAR: S1, S2, muffled. No S3, no S4, RESPIRATORY: Diminished breath sounds at the bases. ABDOMEN: Soft, status post surgery. LEGS: No edema, no swelling. NERVOUS SYSTEM: No focal deficits. LABS: WBC 11.5. Other labs are noted. UA noted. ASSESSMENT: 1. Status post extensive lysis of adhesions, low anterior resection with sigmoid colectomy, takedown and the repair of enteroenteric fistula, colovesical fistula, colovaginal fistula and descending colostomy reversal. 2. Increased WBC, possibly reactive. 3. Asthma and chronic obstructive pulmonary disease. 4. Fibromyalgia. 5. Hypertension. 6. Hyperlipidemia. 7. History of degenerative joint disease. 8. History of pulmonary embolism. 9. History of chronic diverticulosis. 10.History of bowel resection. 11.Anxiety and depression. 12.FULL CODE. RECOMMENDATIONS: Recommend to continue current management and symptomatic treatment. Otherwise, at this time I recommend repeat labs and also DVT prophylaxis. Closely monitor. Further recommendations to follow. MMODL / IJN: [id number] /
[2021-04-19] MEDS: ALBUTEROL NEBULIZED 2.5 MG/3 ML INHALATION PRN (20:48)
[2021-04-19] MEDS: LACTATED RINGERS 1,000 ML IV SCH (23:24)
[2021-04-20] MEDS: ONDANSETRON 4 MG/2 ML VIAL IVP SCH ×3 (05:43→17:06)
[2021-04-20] MEDS: KETOROLAC 15 MG/ML 1 ML VIAL IVP SCH ×3 (05:43→17:06)
[2021-04-20] MEDS: PANTOPRAZOLE 40 MG/10 ML VIAL IVP SCH (07:51)
[2021-04-20] MEDS: PIPERACILLIN-TAZOBACTAM 3.375 GM in SODIUM CHLORIDE 0.9% 100 ML IVPB SCH ×2 (07:51→16:13)
[2021-04-20] MEDS: ENOXAPARIN 40 MG/0.4 ML SYRINGE SQ SCH (07:51)
[2021-04-20] MEDS: ALVIMOPAN 12 MG CAPSULE PO SCH ×2 (07:51→20:35)
[2021-04-20] MEDS: metroNIDAZOLE-NS PMX 500 MG in SALINE 1 100ML.BAG IVPB SCH ×2 (07:51→16:13)
[2021-04-20] MEDS: SIMETHICONE 40 MG/0.6 ML DROPS 2,000 MG/30 ML BOTTLE PO SCH ×5 (07:52→20:38)
[2021-04-20 09:17] LABS: Basophils # (A) 0.03 X 10*3/uL (0.00-0.10); Basophils % (A) 0.3 %; Eosinophils # (A) 0.13 X 10*3/uL (0.04-0.35); Eosinophils % (A) 1.4 %; HCT 37.9 % (37.2-46.3); HGB 12.2 g/dL (12.0-15.0); Lymphocytes # (A) 1.48 X 10*3/uL (0.90-5.00); Lymphocytes % (A) 16.3 %; MCH 28.4 pg (27.0-32.0); MCHC 32.2 g/dL (32.0-37.0); MCV 88.3 fL (80.0-97.0); Mean Platelet Volume 9.7 fL (9.5-12.2); Monocytes # (A) 0.83 X 10*3/uL (0.20-1.00); Monocytes % (A) 9.1 %; Neutrophils # (A) 6.59 X 10*3/uL (1.80-7.70); Neutrophils % (A) 72.7 %; Platelet Count 256 X 10*3/uL (140-440); RBC 4.29 X 10*6/uL (4.10-5.20); RDW 14.3 % (11.5-14.5); WBC 9.08 X 10*3/uL (4.50-10.00)
[2021-04-20 10:07] LABS: African American GFR (CKD) 122.8 (60.0-200.0); Anion Gap 14.8 mmol/L (4.00-12.00); Calcium 8.5 mg/dL (8.7-10.3); Carbon Dioxide 23.2 mmol/L (21.6-31.8); Non-African American GFR(CKD) 105.9 (60.0-200.0); Potassium 3.2 mmol/L (3.5-5.5)
[2021-04-20] MEDS: ALBUTEROL NEBULIZED 2.5 MG/3 ML INHALATION PRN (10:59)
[2021-04-20] MEDS ORDERED: Potassium Replacement Protocol 1 EACH MISC MISCELLANE PRN (12:20)
[2021-04-20] MEDS ORDERED: IPRATROPIUM-ALBUTEROL 3 ML NEB INHALATION PRN (12:35)
--- NOTE | 2021-04-20 12:44 | P.PN ---
Subjective Progress Note Date: 04/20/21 This is a 60-year-old female status post colostomy reversal. Pain controlled. Maintained on IV fluid hydration, Zosyn, Flagyl .Afebrile, normal WBC. Advance to full liquids yesterday, tolerated well with no nausea or vomiting. Passing flatus, no bowel movement. Maintaining O2 sats in the 90's on 2 L nasal cannula. Denies chest pain, palpitations or increasing shortness of breath. Objective - Vital Signs Vital signs: Vital Signs Temp 98.4 F 04/20/21 08:00 Pulse 80 04/20/21 10:59 Resp 16 04/20/21 08:00 BP 138/81 04/20/21 08:00 Pulse Ox 93 L 04/20/21 08:00 Intake & Output 04/19/21 04/20/21 04/20/21 18:59 06:59 18:59 Intake Total 480 Output Total 1800 1550 Balance -1320 -1550 Intake: Oral 480 Output: Urine 1800 1550 Other: Voiding Method Indwelling Catheter Self-Catheterization Indwelling Catheter - Exam PHYSICAL EXAM: VITAL SIGNS: As above GENERAL: Sitting up in bed, no acute distress HEENT: Conjunctivae normal. eyes normal. Oral mucosa moist NECK: No JVD. No thyroid enlargement. No LNs CARDIOVASCULAR: S1, S2 regular.No murmur RESPIRATION: Breath sounds diminished in the bases. No rhonchi or crackles. ABDOMEN: Soft, status post surgery, dressing clean dry and intact, No guarding. Positive Bowel sounds heard. LEGS: No edema. no swelling PSYCHIATRY: Alert and oriented X3, mood and affect normal. NERVOUS SYSTEM: Cranial N 2-12 grossly normal. Moves all 4 limbs. No focal deficits. Strength and sensation grossly intact.. Skin: Warm and dry, no rash - Labs CBC & Chem 7: 04/20/21 05:37 04/20/21 05:37 Labs: Abnormal Lab Results - Last 24 Hours (Table) 04/20/21 Range/Units 05:37 Potassium 3.2 L (3.5-5.5) mmol/L Anion Gap 14.80 H (4.00-12.00) mmol/L BUN 8.0 L (9.0-27.0) mg/dL Creatinine 0.5 L (0.6-1.5) mg/dL Glucose 113 H (70-110) mg/dL Calcium 8.5 L (8.7-10.3) mg/dL Assessment and Plan Assessment: Status post extensive lysis of intra-abdominal and intrapelvic adhesions, low anterior resection with sigmoid colectomy, takedown and repair of enteric, Colovesical and colovaginal fistula with descending Colostomy reversal. Hypoxic respiratory failure secondary to the above, atelectasis Leukocytosis, resolved History of asthma and COPD Hypokalemia Fibromyalgia Hypertension with bandemia Degenerative joint disease Anxiety and depression Plan: Continue on current medication regime ,monitoring and symptomatic treatment. Aggressive pulmonary toileting with incentive spirometer reinforced. Nebulized bronchodilators scheduled and prn.LABA/Symbicort added to med regime in a patient with history of asthma and COPD. Increase activity as tolerated. Hypokalemic, potassium replacement ordered, magnesium level added on and pending. Repeat potassium level 1800. GI and DVT prophylaxis in place with Lovenox and PPI. The impression and plan of care has been dictated as directed. : I performed a history and examination of this patient, discussed the same with the dictator. I agree with the dictator's note ,documented as a scribe. Any additional findings or plans will be noted.
--- NOTE | 2021-04-20 12:50 | P.PN ---
Subjective Progress Note Date: 04/20/21 CHIEF COMPLAINT: Diverticulitis HISTORY OF PRESENT ILLNESS: Patient is status post Extensive lysis of intra- abdominal and intrapelvic adhesions, Low anterior resection with sigmoid colectomy, Takedown and repair of enteric enteric fistula, Takedown and repair of colovesical fistula, Takedown and repair of colovaginal fistula, Descending colostomy reversal, Application of universal PREVENA incisional wound VAC along colostomy closure site and midline incision and Intraoperative colonoscopy for sigmoidoscopy. Patient reports that her pain is controlled. She is having flatus. She denies any nausea or vomiting. No bowel movement reported yet. Afebrile. She's currently on a full liquid diet. WBC normalized at 9.08T 1112.2 sodium 142 potassium is 3.2 magnesium 1.9 PHYSICAL EXAM: VITAL SIGNS: Reviewed GENERAL: Well-developed in no acute distress. HEENT: No sclera icterus. Extraocular movements grossly intact. Moist buccal mucosa. Head is atraumatic, normocephalic. Hears conversational speech. No nasal drainage. NECK: Supple without lymphadenopathy. CHEST: Non-labored respirations and equal bilateral excursions. CARDIOVASCULAR: Palpable 2+ radial pulses. ABDOMEN: Soft. Nondistended. Nontender. MUSCULOSKELETAL: No clubbing or cyanosis. NEUROLOGIC: No focal or lateralizing signs. Cranial nerves II through XII grossly intact. PSYCH: Appropriate affect. Alert and oriented to person, place and time. SKIN: Well perfused. Good skin turgor. ASSESSMENT: 1. Sigmoid diverticulitis with abscess and colovesical fistula 2. Descending colostomy status from perforated diverticulitis with colovesical and colovaginal fistula 3. Tobacco use disorder in remission 4. Chronic obstructive pulmonary disease with her asthma 5. Fibromyalgia 6. Hyperlipidemia 7. History of pulmonary embolism 8. Neuropathy 9. History of brain aneurysm 10. History of pancreatitis 11. 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 Severe intra-abdominal and intrapelvic adhesions PLAN: -Continue full liquid diet -Change Barton to a Barton leg bag. Patient will be discharged home with Barton catheter due to her requiring a bladder repair -Add ensure 1 can 3 times a day with meals -Encourage patient to ambulate -Continue pain medication as needed -Continue use incentive spirometer -Possible discharge tomorrow. Awaiting patient to have a bowel movement. -Continue GI and DVT prophylaxis Physician [employer] Machine Operator note has been reviewed by physician. Signing provider agrees with the documented findings, assessment, and plan of care. Objective - Vital Signs Vital signs: Vital Signs Temp 98.4 F 04/20/21 08:00 Pulse 80 04/20/21 10:59 Resp 16 04/20/21 08:00 BP 138/81 04/20/21 08:00 Pulse Ox 93 L 04/20/21 08:00 Intake & Output 04/19/21 04/20/21 04/20/21 18:59 06:59 18:59 Intake Total 480 Output Total 1800 1550 Balance -1320 -1550 Intake: Oral 480 Output: Urine 1800 1550 Other: Voiding Method Indwelling Catheter Self-Catheterization Indwelling Catheter - Labs CBC & Chem 7: 04/20/21 05:37 04/20/21 05:37 Labs: Abnormal Lab Results - Last 24 Hours (Table) 04/20/21 Range/Units 05:37 Potassium 3.2 L (3.5-5.5) mmol/L Anion Gap 14.80 H (4.00-12.00) mmol/L BUN 8.0 L (9.0-27.0) mg/dL Creatinine 0.5 L (0.6-1.5) mg/dL Glucose 113 H (70-110) mg/dL Calcium 8.5 L (8.7-10.3) mg/dL
[2021-04-20] MEDS: SYMBICORT 80-4.5 MCG INHALER INHALATION SCH ×2 (13:28→19:46)
[2021-04-20] MEDS: IPRATROPIUM-ALBUTEROL 3 ML NEB INHALATION SCH ×2 (15:33→19:46)
[2021-04-20] MEDS: SODIUM CHLORIDE 0.9% 1,000 ML IV SCH ×3 (20:26→21:59)
[2021-04-20] MEDS: LACTATED RINGERS 1,000 ML IV SCH (20:27)
[2021-04-20] MEDS: HYDROmorphone 1 MG/ML 1 ML SYRINGE IVP PRN (20:35)
[2021-04-21] MEDS: KETOROLAC 15 MG/ML 1 ML VIAL IVP SCH ×3 (00:13→11:53)
[2021-04-21] MEDS: ONDANSETRON 4 MG/2 ML VIAL IVP SCH ×4 (00:13→17:35)
[2021-04-21] MEDS: metroNIDAZOLE-NS PMX 500 MG in SALINE 1 100ML.BAG IVPB SCH ×3 (00:14→15:38)
[2021-04-21] MEDS: PIPERACILLIN-TAZOBACTAM 3.375 GM in SODIUM CHLORIDE 0.9% 100 ML IVPB SCH ×3 (01:51→15:38)
[2021-04-21] MEDS ORDERED: Potassium Replacement Protocol 1 EACH MISC MISCELLANE PRN (02:44)
[2021-04-21] MEDS: POTASSIUM CHLORIDE ER 20 MEQ TAB.ER PO SCH ×4 (02:54→07:30)
[2021-04-21] MEDS: HYDROmorphone 1 MG/ML 1 ML SYRINGE IVP PRN (03:00)
[2021-04-21] MEDS: LACTATED RINGERS 1,000 ML IV SCH (04:08)
[2021-04-21] MEDS: SODIUM CHLORIDE 0.9% 1,000 ML IV SCH ×2 (05:17→20:48)
[2021-04-21 06:45] LABS: African American GFR (CKD) >90 (>60 ml/min/1.73 sqM); Anion Gap 4 mmol/L; Blood Urea Nitrogen 7 mg/dL (7-17); Calcium 8.5 mg/dL (8.4-10.2); Carbon Dioxide 29 mmol/L (22-30); Chloride 106 mmol/L (98-107); Glucose 94 mg/dL (74-99); Non-African American GFR(CKD) >90 (>60 ml/min/1.73 sqM); Potassium 3.4 mmol/L (3.5-5.1); Sodium 139 mmol/L (137-145)
[2021-04-21] MEDS: PANTOPRAZOLE 40 MG/10 ML VIAL IVP SCH (07:30)
[2021-04-21] MEDS: SIMETHICONE 40 MG/0.6 ML DROPS 2,000 MG/30 ML BOTTLE PO SCH ×4 (07:30→20:46)
[2021-04-21] MEDS: ENOXAPARIN 40 MG/0.4 ML SYRINGE SQ SCH (07:30)
[2021-04-21] MEDS: ALVIMOPAN 12 MG CAPSULE PO SCH ×2 (07:30→20:45)
[2021-04-21] MEDS: SYMBICORT 80-4.5 MCG INHALER INHALATION SCH ×2 (08:30→19:58)
[2021-04-21] MEDS: IPRATROPIUM-ALBUTEROL 3 ML NEB INHALATION SCH ×4 (08:30→19:58)
[2021-04-21] MEDS ORDERED: ACETAMINOPHEN TAB 500 MG TAB PO PRN (09:09)
[2021-04-21] MEDS: ACETAMINOPHEN TAB 500 MG TAB PO SCH ×2 (11:09→17:36)
--- NOTE | 2021-04-21 14:16 | P.PN ---
Subjective Progress Note Date: 04/21/21 CHIEF COMPLAINT: Diverticulitis HISTORY OF PRESENT ILLNESS: Patient is status post Extensive lysis of intra- abdominal and intrapelvic adhesions, Low anterior resection with sigmoid colectomy, Takedown and repair of enteric enteric fistula, Takedown and repair of colovesical fistula, Takedown and repair of colovaginal fistula, Descending colostomy reversal, Application of universal PREVENA incisional wound VAC along colostomy closure site and midline incision and Intraoperative colonoscopy for sigmoidoscopy. Patient complaining of right-sided abdominal pain. Apparently Dilaudid has been causing patient to be nauseated. This will be discontinued. Patient reports having flatus and did have a bowel movement yesterday. Nursing staff is working on transitioning patient to a Barton leg bag. Patient is not ambulating. She also isn't had poor oral intake. She reports that she does not like the food here. Afebrile. Sodium 139 potassium 3.4 magnesium 1.9 PHYSICAL EXAM: VITAL SIGNS: Reviewed GENERAL: Well-developed in no acute distress. HEENT: No sclera icterus. Extraocular movements grossly intact. Moist buccal mucosa. Head is atraumatic, normocephalic. Hears conversational speech. No nasal drainage. NECK: Supple without lymphadenopathy. CHEST: Non-labored respirations and equal bilateral excursions. CARDIOVASCULAR: Palpable 2+ radial pulses. ABDOMEN: Soft. Nondistended. Incisional dressing clean dry and intact. Mild tenderness with palpation of the right side the abdomen MUSCULOSKELETAL: No clubbing or cyanosis. NEUROLOGIC: No focal or lateralizing signs. Cranial nerves II through XII grossly intact. PSYCH: Appropriate affect. Alert and oriented to person, place and time. SKIN: Well perfused. Good skin turgor. ASSESSMENT: 1. Sigmoid diverticulitis with abscess and colovesical fistula 2. Descending colostomy status from perforated diverticulitis with colovesical and colovaginal fistula 3. Tobacco use disorder in remission 4. Chronic obstructive pulmonary disease with her asthma 5. Fibromyalgia 6. Hyperlipidemia 7. History of pulmonary embolism 8. Neuropathy 9. History of brain aneurysm 10. History of pancreatitis 11. 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 Severe intra-abdominal and intrapelvic adhesions 16. Hypokalemia PLAN: -She is potassium is being replaced -Continue full liquid diet -Nursing staff working on changing Barton to a leg bag. Patient will be discharged home with Barton catheter due to her requiring bladder repair -Consult physical therapy to help with ambulating patient -Encouraged patient to ambulate and increase activity level -Add Tylenol scheduled to help with pain -Continue Toradol -IV Dilaudid discontinued due to causing nausea -Continue use incentive spirometer -Possible discharge home tomorrow -Continue GI and DVT prophylaxis Physician Professor Of Biostatistics note has been reviewed by physician. Signing provider agrees with the documented findings, assessment, and plan of care. Objective - Vital Signs Vital signs: Vital Signs Temp 98.4 F 04/21/21 08:00 Pulse 71 04/21/21 11:54 Resp 18 04/21/21 08:00 BP 134/83 04/21/21 08:00 Pulse Ox 91 L 04/21/21 08:00 Intake & Output 04/20/21 04/21/21 04/21/21 18:59 06:59 18:59 Intake Total 1300 Output Total 1400 2375 Balance -100 -2375 Intake: Intake, IV Titration 1300 Amount Sodium Chloride 0.9% 1, 1300 000 ml @ 130 mls/hr IV . Q7H42M [facility] Rx#:[id number] Output: Urine 1400 2375 Uretheral (Barton) 800 Other: Voiding Method Indwelling Catheter Indwelling Catheter Indwelling Catheter - Labs CBC & Chem 7: 04/20/21 05:37 04/21/21 05:27 Labs: Abnormal Lab Results - Last 24 Hours (Table) 04/20/21 04/21/21 Range/Units 18:44 05:27 Potassium 2.8 L 3.4 L (3.5-5.1) mmol/L Creatinine 0.42 L (0.52-1.04) mg/dL
--- NOTE | 2021-04-21 15:26 | P.PN ---
Subjective Progress Note Date: 04/21/21 This is a 60-year-old female status post colostomy reversal. Pain controlled. Maintained on IV fluid hydration, Zosyn, Flagyl .Afebrile, normal WBC. Advance to full liquids yesterday, tolerated well with no nausea or vomiting. Passing flatus, no bowel movement. Maintaining O2 sats in the 90's on 2 L nasal cannula. Denies chest pain, palpitations or increasing shortness of breath. 04/21/2021 passing flatus, positive bowel movement yesterday. Reports not eating full liquid diet-doesn't like the hospital food. Positive pain, reporting abdominal spasms uncontrolled with current regimen. Stating Dilaudid makes her nauseated, but able to tolerate morphine. PT consulted, patient has not been ambulating. Afebrile. Potassium 3.4, currently being replaced on potassium replacement protocol. Denies chest pain, palpitations or increasing shortness of breath. Maintaining O2 sats in the 90s on room air. Objective - Vital Signs Vital signs: Vital Signs Temp 98.1 F 04/21/21 14:00 Pulse 85 04/21/21 14:00 Resp 18 04/21/21 14:00 BP 128/81 04/21/21 14:00 Pulse Ox 95 04/21/21 14:00 Intake & Output 04/20/21 04/21/21 04/21/21 18:59 06:59 18:59 Intake Total 1300 Output Total 1400 2375 Balance -100 -2375 Intake: Intake, IV Titration 1300 Amount Sodium Chloride 0.9% 1, 1300 000 ml @ 130 mls/hr IV . Q7H42M [facility] Rx#:[id number] Output: Urine 1400 2375 Uretheral (Barton) 800 Other: Voiding Method Indwelling Catheter Indwelling Catheter Indwelling Catheter - Exam PHYSICAL EXAM: VITAL SIGNS: As above GENERAL: Sitting up in bed, no acute distress HEENT: Conjunctivae normal. eyes normal. Oral mucosa moist NECK: No JVD. No thyroid enlargement. No LNs CARDIOVASCULAR: S1, S2 regular.No murmur RESPIRATION: Breath sounds diminished in the bases. No rhonchi or crackles. ABDOMEN: Soft, nondistended, status post surgery, dressing clean dry and intact, No guarding. Positive Bowel sounds heard. LEGS: No edema. no swelling PSYCHIATRY: Alert and oriented X3, mood and affect normal. NERVOUS SYSTEM: Cranial N 2-12 grossly normal. Moves all 4 limbs. No focal deficits. Strength and sensation grossly intact.. Skin: Warm and dry, no rash - Labs CBC & Chem 7: 04/20/21 05:37 04/21/21 05:27 Labs: Abnormal Lab Results - Last 24 Hours (Table) 04/20/21 04/21/21 Range/Units 18:44 05:27 Potassium 2.8 L 3.4 L (3.5-5.1) mmol/L Creatinine 0.42 L (0.52-1.04) mg/dL Assessment and Plan Assessment: Status post extensive lysis of intra-abdominal and intrapelvic adhesions, low anterior resection with sigmoid colectomy, takedown and repair of enteric, Colovesical and colovaginal fistula with descending Colostomy reversal. Hypoxic respiratory failure secondary to the above, atelectasis Leukocytosis, resolved History of asthma and COPD Hypokalemia Fibromyalgia Hypertension Degenerative joint disease Anxiety and depression Plan: Continue on current medication regime ,monitoring and symptomatic treatment. Pain management as per surgery -discussed with surgery -discontinue Dilaudid with possible morphine for breakthrough. continue aggressive pulmonary toileting with incentive spirometer reinforced. PT consult in place-Increase activity as tolerated. Hypokalemic, potassium replacement ordered. The impression and plan of care has been dictated as directed. : I performed a history and examination of this patient, discussed the same with the dictator. I agree with the dictator's note ,documented as a scribe. Any additional findings or plans will be noted.
[2021-04-22] MEDS: SODIUM CHLORIDE 0.9% 1,000 ML IV SCH ×3 (00:50→11:41)
[2021-04-22] MEDS: metroNIDAZOLE-NS PMX 500 MG in SALINE 1 100ML.BAG IVPB SCH ×2 (00:51→08:54)
[2021-04-22] MEDS: ONDANSETRON 4 MG/2 ML VIAL IVP SCH ×3 (00:51→11:39)
[2021-04-22] MEDS: PIPERACILLIN-TAZOBACTAM 3.375 GM in SODIUM CHLORIDE 0.9% 100 ML IVPB SCH ×2 (00:51→09:22)
[2021-04-22] MEDS: ACETAMINOPHEN TAB 500 MG TAB PO SCH ×3 (00:52→11:39)
[2021-04-22] MEDS: SIMETHICONE 40 MG/0.6 ML DROPS 2,000 MG/30 ML BOTTLE PO SCH ×2 (06:02→12:59)
[2021-04-22 06:44] LABS: African American GFR (CKD) >90 (>60 ml/min/1.73 sqM); Anion Gap 5 mmol/L; Blood Urea Nitrogen 4 mg/dL (7-17); Calcium 8.7 mg/dL (8.4-10.2); Carbon Dioxide 29 mmol/L (22-30); Chloride 108 mmol/L (98-107); Glucose 114 mg/dL (74-99); Non-African American GFR(CKD) >90 (>60 ml/min/1.73 sqM); Potassium 3.4 mmol/L (3.5-5.1); Sodium 142 mmol/L (137-145)
[2021-04-22] MEDS: LACTATED RINGERS 1,000 ML IV SCH (07:34)
[2021-04-22] MEDS: SYMBICORT 80-4.5 MCG INHALER INHALATION SCH (07:38)
[2021-04-22] MEDS: IPRATROPIUM-ALBUTEROL 3 ML NEB INHALATION SCH ×2 (07:38→11:17)
[2021-04-22 08:01] VITALS: BP 130/75; PULSE 75; RESP 16; TEMP 98.5
[2021-04-22] MEDS ORDERED: POTASSIUM CHLORIDE ER 20 MEQ TAB.ER PO STA (08:30)
[2021-04-22] MEDS: ALVIMOPAN 12 MG CAPSULE PO SCH (08:44)
[2021-04-22] MEDS: ENOXAPARIN 40 MG/0.4 ML SYRINGE SQ SCH (08:55)
[2021-04-22] MEDS: PANTOPRAZOLE 40 MG/10 ML VIAL IVP SCH (08:55)
[2021-04-22] MEDS ORDERED: KETOROLAC 15 MG/ML 1 ML VIAL IVP SCH (11:00)
[2021-04-22] MEDS ORDERED: MAGNESIUM SULFATE-D5W PMX 1 GM in DEXTROSE/WATER 1 100ML.BAG IVPB ONE (11:00)
--- NOTE | 2021-04-22 12:29 | P.DS ---
Providers Date of admission: 04/17/21 13:40 Expected date of discharge: 04/22/21 Attending physician: Candice Leo Consults: 04/18/21 10:38 Consult Physician Routine Consulting Provider: Santiago Berg Consult Reason/Comments: Medical management Do you want consulting provider notified?: Yes Primary care physician: [facility] Hospital Course: Discharge diagnosis 1. Sigmoid diverticulitis with abscess and colovesical fistula 2. Descending colostomy status from perforated diverticulitis with colovesical and colovaginal fistula 3. Tobacco use disorder in remission 4. Chronic obstructive pulmonary disease with her asthma 5. Fibromyalgia 6. Hyperlipidemia 7. History of pulmonary embolism 8. Neuropathy 9. History of brain aneurysm 10. History of pancreatitis 11. 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 Severe intra-abdominal and intrapelvic adhesions 16. Hypokalemia 17. Hypomagnesemia Hospital course The patient is a 60-year-old female with sigmoid diverticulitis and descending colostomy due to fistula. Patient is status post Extensive lysis of intra- abdominal and intrapelvic adhesions, Low anterior resection with sigmoid colectomy, Takedown and repair of enteric enteric fistula, Takedown and repair of colovesical fistula, Takedown and repair of colovaginal fistula, Descending colostomy reversal, Application of universal PREVENA incisional wound VAC along colostomy closure site and midline incision and Intraoperative colonoscopy for sigmoidoscopy. Patient's pain is controlled. She is tolerating diet. Denies any nausea or vomiting. She is having bowel movements and flatus. She is up and ambulating. She is afebrile. She is stable for discharge home. Physician [employer]sembler note has been reviewed by physician. Signing provider agrees with the documented findings, assessment, and plan of care. Patient Condition at Discharge: Stable Plan - Discharge Summary Discharge Rx Participant: Yes New Discharge Prescriptions: New Simethicone [Gas-X] 125 mg PO AC-TID PRN #20 cap PRN Reason: Pain Acetaminophen Tab [Tylenol Tab] 1,000 mg PO Q6HR PRN #30 tablet PRN Reason: Pain Continue Multivitamins, Thera [Multivitamin (formulary)] 1 tab PO DAILY Albuterol Inhaler [Ventolin Hfa Inhaler] 1 puff INHALATION DIRECTED PRN PRN Reason: Shortness Of Breath Or Wheezing Loratadine [Claritin] 10 mg PO PRN PRN Reason: Allergy Symptoms Discontinued polyethylene glycoL 3350 [Miralax] 17 gm PO DAILY powd.pack Discharge Medication List Multivitamins, Thera [Multivitamin (formulary)] 1 tab PO DAILY 01/27/21 [History] Albuterol Inhaler [Ventolin Hfa Inhaler] 1 puff INHALATION DIRECTED PRN 04/16/21 [History] Acetaminophen Tab [Tylenol Tab] 1,000 mg PO Q6HR PRN #30 tablet 04/17/21 [Rx] Loratadine [Claritin] 10 mg PO PRN 04/17/21 [History] Simethicone [Gas-X] 125 mg PO AC-TID PRN #20 cap 04/17/21 [Rx] Follow up Appointment(s)/Referral(s): Candice Leo MD [STAFF PHYSICIAN] - 04/28/21 [facility], [NON-STAFF] - As Needed Patient Instructions/Handouts: *[facility] - Managing Your Pain After Surgery Without Opioids, *[facility] - Scopalamine Patch Instructions, Colectomy (IP), Abdominal Binder (DC), Urinary Leg Bag (GEN), Colectomy Diet (DC) Activity/Diet/Wound Care/Special Instructions: DO NOT REMOVE KOHLI DUE TO BLADDER REPAIR, WILL BE REMOVED IN OFFICE APR 28 Wear abdominal binder at all times for comfort. Please notify your pain specialist for narcotic pain meds. No lifting over 4 pounds in 4 weeks until May 17. May shower. No bath tub soaks for two weeks until May 01 Avoid steak, tough meats and seeds such as raspberry seeds. No driving while on narcotics. Use Tylenol, simethicone scheduled for the next 24-48 hours for best pain relief. Use ice along incisions for today to prevent swelling. Discharge Disposition: HOME WITH HOME HEALTH SERVICES
[2021-04-22 14:36] VITALS: BMI 28.3
== END 2021-04-22 14:51 | disposition home health service (06) | DRG 329 ==
LOC: EDSTATUS 07:30 → 2ORMAIN 13:40 → 4SSUR 23:28
PROVIDERS: ADMIT Surgery Plastic and Reconstructive Surgery; ATTEND Surgery Plastic and Reconstructive Surgery
PROC: 0DNW0ZZ Release Peritoneum, Open Approach (ICD-10-PCS; principal; 2021-04-17 15:05)
PROC: 0TBB0ZZ Excision of Bladder, Open Approach (ICD-10-PCS; principal; 2021-04-17 15:05)
PROC: 0DJD8ZZ Inspection of Lower Intestinal Tract, Via Natural or Artificial Opening Endoscopic (ICD-10-PCS; principal; 2021-04-17 15:05)
PROC: 0DTN0ZZ Resection of Sigmoid Colon, Open Approach (ICD-10-PCS; principal; 2021-04-17 15:05)
PROC: 0DQN0ZZ Repair Sigmoid Colon, Open Approach (ICD-10-PCS; principal; 2021-04-17 15:05)
PROC: 0DN80ZZ Release Small Intestine, Open Approach (ICD-10-PCS; principal; 2021-04-17 15:05)
PROC: 0UBG0ZZ Excision of Vagina, Open Approach (ICD-10-PCS; principal; 2021-04-17 15:05)
DX: Z43.3 Encounter for attention to colostomy (principal); J96.01 Acute respiratory failure with hypoxia; N82.3 Fistula of vagina to large intestine; N32.1 Vesicointestinal fistula; J98.11 Atelectasis; K57.32 Diverticulitis of large intestine without perforation or abscess without bleeding; I67.1 Cerebral aneurysm, nonruptured; J44.9 Chronic obstructive pulmonary disease, unspecified; Z20.822 Contact with and (suspected) exposure to COVID-19; E87.6 Hypokalemia; I10 Essential (primary) hypertension; E78.5 Hyperlipidemia, unspecified; K66.0 Peritoneal adhesions (postprocedural) (postinfection); N73.6 Female pelvic peritoneal adhesions (postinfective); E83.42 Hypomagnesemia; M47.9 Spondylosis, unspecified; G62.9 Polyneuropathy, unspecified; M79.7 Fibromyalgia; M19.90 Unspecified osteoarthritis, unspecified site; G89.29 Other chronic pain; M50.30 Other cervical disc degeneration, unspecified cervical region; M41.9 Scoliosis, unspecified; M54.9 Dorsalgia, unspecified; Z79.899 Other long term (current) drug therapy; Z86.711 Personal history of pulmonary embolism; Z87.19 Personal history of other diseases of the digestive system; Z90.710 Acquired absence of both cervix and uterus; Z87.42 Personal history of other diseases of the female genital tract; Z98.51 Tubal ligation status; Z86.59 Personal history of other mental and behavioral disorders; Z87.891 Personal history of nicotine dependence; Z98.890 Other specified postprocedural states; Z88.6 Allergy status to analgesic agent; Z82.49 Family history of ischemic heart disease and other diseases of the circulatory system; Z80.49 Family history of malignant neoplasm of other genital organs; Z82.0 Family history of epilepsy and other diseases of the nervous system; Z80.1 Family history of malignant neoplasm of trachea, bronchus and lung; Z80.6 Family history of leukemia
CPT/HCPCS: 64999; 80048; 81001; 83735; 84132; 85025; 85610; 86850; 86900; 86901; 87635; 88302; 88307; 94640; 94760

== ENCOUNTER 2021-05-03 14:15 | Emergency (ER) | payer OTHER ==
[2021-05-03 15:37] VITALS: RESP 17
[2021-05-03] MEDS ORDERED: SODIUM CHLORIDE 0.9% 1,000 ML IV STA (15:55)
[2021-05-03] MEDS ORDERED: MORPHINE SULFATE 4 MG/ML SYRINGE IV STA (15:55)
[2021-05-03] MEDS ORDERED: ONDANSETRON 4 MG/2 ML VIAL IVP STA (16:34)
[2021-05-03 16:42] LABS: Basophils # (A) 0.1 k/uL (0-0.2); Basophils % (A) 1 %; Eosinophils # (A) 0.3 k/uL (0-0.7); Eosinophils % (A) 3 %; HCT 42.3 % (34.0-46.0); HGB 14.4 gm/dL (11.4-16.0); Lymphocytes # (A) 2.9 k/uL (1.0-4.8); Lymphocytes % (A) 27 %; MCH 29.8 pg (25.0-35.0); MCHC 34.1 g/dL (31.0-37.0); MCV 87.2 fL (80.0-100.0); Mean Platelet Volume 6.9; Monocytes # (A) 0.6 k/uL (0-1.0); Monocytes % (A) 6 %; Neutrophils # (A) 6.5 k/uL (1.3-7.7); Neutrophils % (A) 61 %; Platelet Count 498 k/uL (150-450); RBC 4.85 m/uL (3.80-5.40); RDW 15.2 % (11.5-15.5); WBC 10.6 k/uL (3.8-10.6)
[2021-05-03 16:52] LABS: ALT 12 U/L (4-34); AST 20 U/L (14-36); African American GFR (CKD) >90 (>60 ml/min/1.73 sqM); Albumin 4.3 g/dL (3.5-5.0); Alkaline Phosphatase 74 U/L (38-126); Amylase 83 U/L (30-110); Anion Gap 12 mmol/L; Blood Urea Nitrogen 19 mg/dL (7-17); Calcium 10.2 mg/dL (8.4-10.2); Carbon Dioxide 23 mmol/L (22-30); Chloride 106 mmol/L (98-107); Glucose 99 mg/dL (74-99); Lipase 467 U/L (23-300); Non-African American GFR(CKD) >90 (>60 ml/min/1.73 sqM); Potassium 4.1 mmol/L (3.5-5.1); Sodium 141 mmol/L (137-145); Total Bilirubin 0.4 mg/dL (0.2-1.3)
[2021-05-03 17:00] LABS: Appearance,Urine Clear (Clear); Bilirubin,Urine Negative (Negative); Blood,Urine Negative (Negative); Color,Urine Light Yellow; Glucose,Urine (UA) Negative (Negative); Ketones,Urine Negative (Negative); Leukocyte Esterase,Urine Negative (Negative); Nitrite,Urine Negative (Negative); Protein,Urine Negative (Negative); Specific Gravity,Urine 1.017 (1.001-1.035); Urobilinogen,Urine <2.0 mg/dL (<2.0)
--- NOTE | 2021-05-03 17:29 | XR ---
EXAMINATION TYPE: XR KUB DATE OF EXAM: 05/03/2021 COMPARISON: NONE HISTORY: Abdominal pain TECHNIQUE: 2 views upright FINDINGS: There are skin shira. There is no sign of intestinal obstruction or pneumoperitoneum. Gas pattern is fairly normal. There is some mild atelectasis at the left lung base. There are no calcifi cations over the kidneys. IMPRESSION: Nonacute abdomen.
--- NOTE | 2021-05-03 17:32 | ED ---
Abdominal Pain HPI - General Chief Complaint: Abdominal Pain Stated Complaint: Post-surgery pain Time Seen by Provider: 05/03/21 15:50 Source: patient, RN notes reviewed Mode of arrival: ambulatory Limitations: no limitations - History of Present Illness Initial Comments: Patient is a 60-year-old female that presents to emergency department complaining of abdominal pain. She notes that she recently had a reversal of her colostomy with Dr. Leo. She notes surgery was approximately 2-1/2 3 weeks ago. She notes that she was instructed to take Tylenol and Motrin for pain. She notes that she comes in having 7-8 out of 10 pain with minimal naus ea. She notes that her incisions are healing well and did not cause any issues. She is otherwise well-appearing. She was requesting pain control at this time. She denied any chest pain shortness of breath headache vomiting diarrhea constipation fever fatigue chills. - Related Data Home Medications Medication Instructions Recorded Confirmed Multivitamins, Thera [Multivitamin 1 tab PO DAILY 01/27/21 05/03/21 (formulary)] Albuterol Inhaler [Ventolin Hfa 1 puff INHALATION RT-Q4H PRN 04/16/21 05/03/21 Inhaler] Loratadine [Claritin] 10 mg PO DAILY PRN 04/17/21 05/03/21 Previous Rx's Medication Instructions Recorded Acetaminophen Tab [Tylenol Tab] 1,000 mg PO Q6HR PRN #30 tablet 04/17/21 Simethicone [Gas-X] 125 mg PO AC-TID PRN #20 cap 04/17/21 Allergies Allergy/AdvReac Type Severity Reaction Status Date / Time ibuprofen AdvReac Abdominal Verified 05/03/21 16:49 Pain Review of Systems ROS Statement: Those systems with pertinent positive or pertinent negative responses have been documented in the HPI. ROS Other: All systems not noted in ROS Statement are negative. Past Medical History Past Medical History: Asthma, COPD, Fibromyalgia, Hyperlipidemia, Hypertension, Musculoskeletal Disorder, Osteoarthritis (OA), Pulmonary Embolus (PE) Additional Past Medical History / Comment(s): CHRONIC DIVERTICULITIS. Pancreatitis, chronic pain, DDD, DJD, cervical/back pain/bilateral scoliosis, spondylosis, neuropathy bilat hands and feet, pulmonary embolism R lung, brain aneurysm being monitored. History of Any Multi-Drug Resistant Organisms: None Reported Past Surgical History: Bowel Resection, Hysterectomy, Tubal Ligation Additional Past Surgical History / Comment(s): DECEMBER 2020 BOWEL RESECTION WITH COLOSTOMY. D&C, angiograms d/t cerebral aneurysm. Colostomy reversal Past Anesthesia/Blood Transfusion Reactions: No Reported Reaction, Motion Sickness Additional Past Anesthesia/Blood Transfusion Reaction / Comment(s): motion sick as a child Past Psychological History: Anxiety, Depression Smoking Status: Former smoker Past Alcohol Use History: None Reported Past Drug Use History: Marijuana - Past Family History Mother Family Medical History: Cancer, Coronary Artery Disease (CAD) Additional Family Medical History / Comment(s): Mother had uterine cancer. Sister(s) Family Medical History: Cancer, Neurologic Disorder Additional Family Medical History / Comment(s): parkinsonism; uterine, lung cancer. Brother(s) Family Medical History: Cancer Additional Family Medical History / Comment(s): Pt had 2 brothers with cancer - 1 leukemia. General Exam Limitations: no limitations General appearance: alert, in no apparent distress Head exam: Present: atraumatic, normocephalic, normal inspection Eye exam: Present: normal appearance, PERRL, EOMI. Absent: scleral icterus, conjunctival injection, periorbital swelling ENT exam: Present: normal exam, mucous membranes moist Neck exam: Present: normal inspection Respiratory exam: Present: normal lung sounds bilaterally. Absent: respiratory distress, wheezes, rales, rhonchi, stridor Cardiovascular Exam: Present: regular rate, normal rhythm, normal heart sounds. Absent: systolic murmur, diastolic murmur, rubs, gallop, clicks GI/Abdominal exam: Present: soft, normal bowel sounds, other (Abdominal binder in place, surgical incisions are clean and dry with no signs or symptoms of infection.). Absent: distended, tenderness, guarding, rebound, rigid Extremities exam: Present: normal inspection, full ROM, normal capillary refill. Absent: tenderness, pedal edema, joint swelling, calf tenderness Neurological exam: Present: alert, oriented X3 Psychiatric exam: Present: normal affect, normal mood Skin exam: Present: warm, dry, intact, normal color. Absent: rash Course Vital Signs 05/03/21 05/03/21 15:32 16:37 Temperature 98.4 F Pulse Rate 85 80 Respiratory 17 17 Rate Blood Pressure 149/95 130/79 O2 Sat by Pulse 95 95 Oximetry Medical Decision Making - Medical Decision Making 60-year-old female complaining of postop pain. Labs, KUB, 4 mg of morphine, 4 mg of Zofran ordered. Labs unremarkable. KUB shows nonacute abdomen. CT scan ordered, negative for any acute process. Patient most likely having post surgical pain. Case discussed with Dr. Cantor, patient can discharge home with follow-up to primary care and surgeon. - Lab Data Result diagrams: 05/03/21 16:13 05/03/21 16:13 Lab Results 05/03/21 05/03/21 05/03/21 Range/Units 16:13 16:13 16:13 WBC 10.6 (3.8-10.6) k/uL RBC 4.85 (3.80-5.40) m/uL Hgb 14.4 (11.4-16.0) gm/dL Hct 42.3 (34.0-46.0) % MCV 87.2 (80.0-100.0) fL MCH 29.8 (25.0-35.0) pg MCHC 34.1 (31.0-37.0) g/dL RDW 15.2 (11.5-15.5) % Plt Count 498 H (150-450) k/uL MPV 6.9 Neutrophils % 61 % Lymphocytes % 27 % Monocytes % 6 % Eosinophils % 3 % Basophils % 1 % Neutrophils # 6.5 (1.3-7.7) k/uL Lymphocytes # 2.9 (1.0-4.8) k/uL Monocytes # 0.6 (0-1.0) k/uL Eosinophils # 0.3 (0-0.7) k/uL Basophils # 0.1 (0-0.2) k/uL Sodium 141 (137-145) mmol/L Potassium 4.1 (3.5-5.1) mmol/L Chloride 106 (98-107) mmol/L Carbon Dioxide 23 (22-30) mmol/L Anion Gap 12 mmol/L BUN 19 H (7-17) mg/dL Creatinine 0.44 L (0.52-1.04) mg/dL Est GFR (CKD-EPI)AfAm >90 (>60 ml/min/1.73 sqM) Est GFR (CKD-EPI)NonAf >90 (>60 ml/min/1.73 sqM) Glucose 99 (74-99) mg/dL Calcium 10.2 (8.4-10.2) mg/dL Total Bilirubin 0.4 (0.2-1.3) mg/dL AST 20 (14-36) U/L ALT 12 (4-34) U/L Alkaline Phosphatase 74 (38-126) U/L Total Protein 8.0 (6.3-8.2) g/dL Albumin 4.3 (3.5-5.0) g/dL Amylase 83 (30-110) U/L Lipase 467 H (23-300) U/L Urine Color Light Yellow Urine Appearance Clear (Clear) Urine pH 5.0 (5.0-8.0) Ur Specific [place] 1.017 (1.001-1.035) Urine Protein Negative (Negative) Urine Glucose (UA) Negative (Negative) Urine Ketones Negative (Negative) Urine Blood Negative (Negative) Urine Nitrite Negative (Negative) Urine Bilirubin Negative (Negative) Urine Urobilinogen <2.0 (<2.0) mg/dL Ur Leukocyte Esterase Negative (Negative) - Radiology Data Radiology results: report reviewed, image reviewed KUB: Nonacute abdomen. CT the abdomen pelvis: Recent surgery, skin shira and fat stranding on the anterior abdomen. There is reversal the left side colostomy compared to old exam. No bowel obstruction. Disposition Clinical Impression: Postoperative pain, Abdominal pain Disposition: HOME SELF-CARE Condition: Stable Instructions (If sedation given, give patient instructions): Abdominal Pain (ED) Additional Instructions: Please return to the Emergency Department if symptoms worsen or any other concerns. Follow-up with primary care in 1-2 days. Follow-up with surgeon as soon as possible. Take, 3 . Is patient prescribed a controlled substance at d/c from ED?: No Referrals: Santiago Berg MD [Primary Care Provider] - 1-2 days Time of Disposition: 18:44
--- NOTE | 2021-05-03 18:38 | CT ---
EXAMINATION TYPE: CT abdomen pelvis w con DATE OF EXAM: 05/03/2021 COMPARISON: 01/27/2021 HISTORY: abdominal pain post-op bowel resection CT DLP: 1189.1 mGycm Automated exposure control for dose reduction was used. CONTRAST: Performed with IV Contrast, patient injected with 100 mL of Isovue 300. Images obtained from the diaphragm to the floor the pelvis with IV contrast. There is some mild atelectasis at both lung bases. There is no pleural effusion. Heart size is normal . There is no pericardial effusion. Liver spleen stomach pancreas gallbladder appear intact. Bile seema ts are nondilated. There is no adrenal mass. Kidneys show satisfactory contrast opacification. There is no hydronephrosis. Ureters are not dilated. There is no retroperitoneal adenopathy. There is multi ple surgical clips in the pelvis. Bladder distends smoothly. There is no inguinal hernia. There is no free fluid in the pelvis. There is gas and fecal material down to the rectum. There is no free fluid in the pelvis. I see no evidence of a bowel obstruction. Lumbar vertebra appear intact. There is vacuum disc at L4-5 and L5-S1 with disc space narrowing. The bony pelvis is intact. The hip joints are intact. There are skin shira over the lower anterior abdo men. IMPRESSION: Recent surgery. Skin shira and fat stranding on the anterior abdomen. There is reversal of the left side colostomy compared to old exam. No bowel obstruction.
[2021-05-03] MEDS ORDERED: ACET/COD 300 MG/30 MG STARTER PACK 6 TAB BTL PO STA (18:44)
[2021-05-03 19:09] VITALS: BP 128/80; PULSE 87; TEMP 97.8
== END 2021-05-03 19:09 | disposition home or self-care (01) ==
LOC: EC 14:15
DX: G89.18 Other acute postprocedural pain (principal); R10.9 Unspecified abdominal pain; R11.0 Nausea; I10 Essential (primary) hypertension; J44.9 Chronic obstructive pulmonary disease, unspecified; E78.5 Hyperlipidemia, unspecified; M79.7 Fibromyalgia; F32.9 Major depressive disorder, single episode, unspecified; F41.9 Anxiety disorder, unspecified; F12.90 Cannabis use, unspecified, uncomplicated; Z86.711 Personal history of pulmonary embolism; Z87.891 Personal history of nicotine dependence; Z79.51 Long term (current) use of inhaled steroids; Z88.6 Allergy status to analgesic agent; Z93.3 Colostomy status
CPT/HCPCS: 36415; 80053; 82150; 83690; 85025; 81003; 74018; 74177; 99284; 96374; 96375; 96361; J2270; J2405; Q9967

== ENCOUNTER 2021-06-10 12:43 | Inpatient (IN) | payer OTHER ==
[2021-06-10 13:41] LABS: Basophils # (A) 0.1 k/uL (0-0.2); Basophils % (A) 1 %; Eosinophils # (A) 0.2 k/uL (0-0.7); Eosinophils % (A) 2 %; HCT 46.7 % (34.0-46.0); HGB 15.6 gm/dL (11.4-16.0); Lymphocytes # (A) 3.2 k/uL (1.0-4.8); Lymphocytes % (A) 43 %; MCHC 33.4 g/dL (31.0-37.0); MCV 89.7 fL (80.0-100.0); Mean Platelet Volume 6.9; Monocytes # (A) 0.5 k/uL (0-1.0); Monocytes % (A) 6 %; Neutrophils # (A) 3.3 k/uL (1.3-7.7); Neutrophils % (A) 45 %; Platelet Count 323 k/uL (150-450); RDW 13.4 % (11.5-15.5); WBC 7.3 k/uL (3.8-10.6)
[2021-06-10 13:53] LABS: ALT 14 U/L (4-34); AST 21 U/L (14-36); African American GFR (CKD) >90 (>60 ml/min/1.73 sqM); Albumin 4.5 g/dL (3.5-5.0); Alkaline Phosphatase 69 U/L (38-126); Amylase 113 U/L (30-110); Anion Gap 10 mmol/L; Blood Urea Nitrogen 10 mg/dL (7-17); Calcium 10.3 mg/dL (8.4-10.2); Carbon Dioxide 22 mmol/L (22-30); Chloride 107 mmol/L (98-107); Glucose 96 mg/dL (74-99); Lipase 763 U/L (23-300); Non-African American GFR(CKD) >90 (>60 ml/min/1.73 sqM); Potassium 4.1 mmol/L (3.5-5.1); Sodium 139 mmol/L (137-145); Total Bilirubin 0.3 mg/dL (0.2-1.3)
[2021-06-10 14:11] LABS: Appearance,Urine Clear (Clear); Bilirubin,Urine Negative (Negative); Blood,Urine Negative (Negative); Color,Urine Yellow; Glucose,Urine (UA) Negative (Negative); Ketones,Urine Negative (Negative); Leukocyte Esterase,Urine Negative (Negative); Nitrite,Urine Negative (Negative); Protein,Urine Negative (Negative); Specific Gravity,Urine 1.011 (1.001-1.035); Urobilinogen,Urine <2.0 mg/dL (<2.0)
[2021-06-10] MEDS ORDERED: MORPHINE SULFATE 4 MG/ML SYRINGE IVP STA (15:10)
[2021-06-10] MEDS ORDERED: SODIUM CHLORIDE 0.9% 1,000 ML IV STA (15:10)
--- NOTE | 2021-06-10 16:24 | CT ---
EXAMINATION TYPE: CT abdomen pelvis w con DATE OF EXAM: 06/10/2021 COMPARISON: CT 05/03/2021 HISTORY: Generalized pain with history of multiple surgeries. CT DLP: 1152.2 mGycm Automated exposure control for dose reduction was used. TECHNIQUE: Helical acquisition of images from the lung bases through the pelvis have been completed. CONTRAST: Performed without Oral Contrast and with IV Contrast, patient injected with 100 mL of Isovue 300. FINDINGS: Postop changes are noted, there is scarring along the anterior abdominal wall. There are co ronary artery calcifications. LUNG BASES: No significant abnormality is appreciated. AORTA: No significant abnormality is appreciated. LIVER/GB: No significant abnormality is appreciated. PANCREAS: No significant abnormality is seen. SPLEEN: No significant abnormality is seen. ADRENALS: No significant abnormality is seen. KIDNEYS: No significant abnormality is seen. REPRODUCTIVE ORGANS: Uterus and adnexal structures are not seen BOWEL: Postoperative changes are noted at the level of the rectosigmoid. Fluid-filled colonic loops are present FREE AIR: No Free Air visible. ASCITES: None visible. PELVIC ADENOPATHY: None visualized. RETROPERITONEAL ADENOPATHY: No Retroperitoneal Adenopathy visible. URINARY BLADDER: No significant abnormality is seen. OSSEOUS STRUCTURES: No significant abnormality is seen. IMPRESSION: POSTOP CHANGES. CORRELATE FOR ENTERITIS.
[2021-06-10] MEDS ORDERED: NALOXONE 0.4 MG/ML 1 ML VIAL IV PRN (16:51)
--- NOTE | 2021-06-10 16:51 | ED ---
Abdominal Pain HPI - General Chief Complaint: Abdominal Pain Stated Complaint: Abd Pain Time Seen by Provider: 06/10/21 15:08 Source: patient Mode of arrival: wheelchair Limitations: no limitations - History of Present Illness Initial Comments: Patient is a 60-year-old female that presents to the emergency department complaining of mid abdominal pain. She does have a history of pancreatitis. She also recently had a colostomy reversal done approximately 5-6 weeks ago. She notes that she's been having these same issues for approximately 2 weeks wit h abdominal pain nausea vomiting and not being able to really keep any food or drinks down. She denied any change in bowel habits. She was otherwise well- appearing. She denied chest pain shortness of breath headache diarrhea constipation fever fatigue chills. - Related Data Home Medications Medication Instructions Recorded Confirmed Multivitamins, Thera [Multivitamin 1 tab PO DAILY 01/27/21 05/03/21 (formulary)] Albuterol Inhaler [Ventolin Hfa 1 puff INHALATION RT-Q4H PRN 04/16/21 05/03/21 Inhaler] Loratadine [Claritin] 10 mg PO DAILY PRN 04/17/21 05/03/21 Previous Rx's Medication Instructions Recorded Acetaminophen Tab [Tylenol Tab] 1,000 mg PO Q6HR PRN #30 tablet 04/17/21 Simethicone [Gas-X] 125 mg PO AC-TID PRN #20 cap 04/17/21 Allergies Allergy/AdvReac Type Severity Reaction Status Date / Time ibuprofen AdvReac Abdominal Verified 06/10/21 13:05 Pain Review of Systems ROS Statement: Those systems with pertinent positive or pertinent negative responses have been documented in the HPI. ROS Other: All systems not noted in ROS Statement are negative. Past Medical History Past Medical History: Asthma, COPD, Fibromyalgia, Hyperlipidemia, Hypertension, Musculoskeletal Disorder, Osteoarthritis (OA), Pulmonary Embolus (PE) Additional Past Medical History / Comment(s): CHRONIC DIVERTICULITIS. Pancreatitis, chronic pain, DDD, DJD, cervical/back pain/bilateral scoliosis, spondylosis, neuropathy bilat hands and feet, pulmonary embolism R lung, brain aneurysm being monitored. History of Any Multi-Drug Resistant Organisms: None Reported Past Surgical History: Bowel Resection, Hysterectomy, Tubal Ligation Additional Past Surgical History / Comment(s): DECEMBER 2020 BOWEL RESECTION WITH COLOSTOMY. D&C, angiograms d/t cerebral aneurysm. Colostomy reversal Past Anesthesia/Blood Transfusion Reactions: No Reported Reaction, Motion Sickness Additional Past Anesthesia/Blood Transfusion Reaction / Comment(s): motion sick as a child Past Psychological History: Anxiety, Depression Smoking Status: Current every day smoker Past Alcohol Use History: None Reported Past Drug Use History: Marijuana - Past Family History Mother Family Medical History: Cancer, Coronary Artery Disease (CAD) Additional Family Medical History / Comment(s): Mother had uterine cancer. Sister(s) Family Medical History: Cancer, Neurologic Disorder Additional Family Medical History / Comment(s): parkinsonism; uterine, lung cancer. Brother(s) Family Medical History: Cancer Additional Family Medical History / Comment(s): Pt had 2 brothers with cancer - 1 leukemia. General Exam Limitations: no limitations General appearance: alert, in no apparent distress Head exam: Present: atraumatic, normocephalic, normal inspection Eye exam: Present: normal appearance, PERRL, EOMI. Absent: scleral icterus, conjunctival injection, periorbital swelling ENT exam: Present: normal exam, mucous membranes moist Neck exam: Present: normal inspection Respiratory exam: Present: normal lung sounds bilaterally. Absent: respiratory distress, wheezes, rales, rhonchi, stridor Cardiovascular Exam: Present: regular rate, normal rhythm, normal heart sounds. Absent: systolic murmur, diastolic murmur, rubs, gallop, clicks GI/Abdominal exam: Present: soft, tenderness (Periumbilical), normal bowel sounds. Absent: distended, guarding, rebound, rigid Extremities exam: Present: normal inspection, full ROM, normal capillary refill. Absent: tenderness, pedal edema, joint swelling, calf tenderness Neurological exam: Present: alert, oriented X3 Psychiatric exam: Present: normal affect, normal mood Skin exam: Present: warm, dry, intact, normal color. Absent: rash Course Vital Signs 06/10/21 06/10/21 13:06 16:15 Temperature 97.8 F Pulse Rate 93 78 Respiratory 20 18 Rate Blood Pressure 121/88 126/75 O2 Sat by Pulse 95 95 Oximetry Medical Decision Making - Medical Decision Making 60-year-old female with abdominal pain, one month post colostomy reversal. Labs, 1 L normal saline, 4 mg of morphine, 4 mg Zofran, CT abdomen and pelvis ordered. Labs: Lipase elevated at 763, amylase elevated 113, rest of labs unremarkable. CT shows possible enteritis but no acute findings. Given patient's inability to hold any food or drinks down she will be admitted to observation. Case discussed with Dr. Crews. Dr. Berg was consulted and will accept the admit with Dr. Chatterjee on consult. - Lab Data Result diagrams: 06/10/21 13:24 06/10/21 13:24 Lab Results 06/10/21 06/10/21 06/10/21 Range/Units 13:24 13:24 13:49 WBC 7.3 (3.8-10.6) k/uL RBC 5.20 (3.80-5.40) m/uL Hgb 15.6 (11.4-16.0) gm/dL Hct 46.7 H (34.0-46.0) % MCV 89.7 (80.0-100.0) fL MCH 30.0 (25.0-35.0) pg MCHC 33.4 (31.0-37.0) g/dL RDW 13.4 (11.5-15.5) % Plt Count 323 (150-450) k/uL MPV 6.9 Neutrophils % 45 % Lymphocytes % 43 % Monocytes % 6 % Eosinophils % 2 % Basophils % 1 % Neutrophils # 3.3 (1.3-7.7) k/uL Lymphocytes # 3.2 (1.0-4.8) k/uL Monocytes # 0.5 (0-1.0) k/uL Eosinophils # 0.2 (0-0.7) k/uL Basophils # 0.1 (0-0.2) k/uL Sodium 139 (137-145) mmol/L Potassium 4.1 (3.5-5.1) mmol/L Chloride 107 (98-107) mmol/L Carbon Dioxide 22 (22-30) mmol/L Anion Gap 10 mmol/L BUN 10 (7-17) mg/dL Creatinine 0.45 L (0.52-1.04) mg/dL Est GFR (CKD-EPI)AfAm >90 (>60 ml/min/1.73 sqM) Est GFR (CKD-EPI)NonAf >90 (>60 ml/min/1.73 sqM) Glucose 96 (74-99) mg/dL Calcium 10.3 H (8.4-10.2) mg/dL Total Bilirubin 0.3 (0.2-1.3) mg/dL AST 21 (14-36) U/L ALT 14 (4-34) U/L Alkaline Phosphatase 69 (38-126) U/L Total Protein 8.0 (6.3-8.2) g/dL Albumin 4.5 (3.5-5.0) g/dL Amylase 113 H (30-110) U/L Lipase 763 H (23-300) U/L Urine Color Yellow Urine Appearance Clear (Clear) Urine pH 5.0 (5.0-8.0) Ur Specific [place] 1.011 (1.001-1.035) Urine Protein Negative (Negative) Urine Glucose (UA) Negative (Negative) Urine Ketones Negative (Negative) Urine Blood Negative (Negative) Urine Nitrite Negative (Negative) Urine Bilirubin Negative (Negative) Urine Urobilinogen <2.0 (<2.0) mg/dL Ur Leukocyte Esterase Negative (Negative) - Radiology Data Radiology results: report reviewed, image reviewed CT abdomen and pelvis: Postop changes. Correlate for enteritis. Disposition Clinical Impression: Pancreatitis, Abdominal pain Disposition: ADMITTED IP TO THIS HOSP Condition: Stable Is patient prescribed a controlled substance at d/c from ED?: No Referrals: Santiago Berg MD [Primary Care Provider] - 1-2 days Time of Disposition: 16:51
[2021-06-10] MEDS: SODIUM CHLORIDE 0.9% 1,000 ML IV SCH (18:33)
[2021-06-10] MEDS: MORPHINE SULFATE 4 MG/ML SYRINGE IV PRN (23:36)
[2021-06-11] MEDS: SODIUM CHLORIDE 0.9% 1,000 ML IV SCH ×3 (00:18→14:40)
[2021-06-11] MEDS: MORPHINE SULFATE 4 MG/ML SYRINGE IV PRN ×2 (07:29→14:41)
--- NOTE | 2021-06-11 09:36 | US ---
EXAMINATION TYPE: US gallbladder DATE OF EXAM: 06/11/2021 COMPARISON: NONE CLINICAL HISTORY: Right upper quadrant pain. EXAM MEASUREMENTS: Liver Length: 17.0 cm Gallbladder Wall: 0.2 cm CBD: 0.6 cm Right Kidney: 11.9 x 4.1 x 5.3 cm Pancreas: wnl as seen partially obscured by overlying bowel gas Liver: increased attenuation, hypoechoic irregular area right lobe measuring 8.0 x 4.6 x 1.9cm Gallbladder: wnl Evidence for sonographic Willard's sign:no CBD: wnl Right Kidney: wnl IMPRESSION: There is a hypoechoic somewhat irregular area within the right lobe of the liver measurin g [address] of the abdomen does not demonstrate an area of abnormality in this region. Therefore, MRI recommended.
--- NOTE | 2021-06-11 12:59 | P.GSCN ---
History of Present Illness Consult date: 06/11/21 History of present illness: CHIEF COMPLAINT: Abdominal pain HISTORY OF PRESENT ILLNESS: This is a 60-year-old female with a prior surgical history that includes sigmoid diverticulitis with abscess and colovesical fistula status post Cummings's procedure and colostomy placement with colostomy reversal in March. Patient complains that she continued to have right s ided lower abdominal pain since the colostomy reversal. However, the pain has increased over the last few days. She has been nauseated and reports no vomiting. Reports a decrease in appetite. She has been having regular bowel movements. Patient had computed tomography scan of abdomen and pelvis that demonstrated postoperative changes and correlate for enteritis. Patient denies any fever, chills or sweats. Denies any urinary symptoms. She was found to have elevated lipase of 763. She does have prior history of pancreatitis. PAST MEDICAL HISTORY: See list. PAST SURGICAL HISTORY: See list. MEDICATIONS: See list. ALLERGIES: See list. SOCIAL HISTORY: No illicit drug use. Current every day smoker REVIEW OF SYSTEMS: CONSTITUTIONAL: Denies fever or chills. HEENT: Denies blurred vision, vision changes, or eye pain. Denies hemoptysis ENDOCRINE: Denies heat or cold intolerance. CARDIOVASCULAR: Denies chest pain or pressure. RESPIRATORY: No shortness of breath. GASTROINTESTINAL: Please refer to HPI NEURO: Denies history of seizures. PSYCH: No depression or suicidal ideation HEMATOLOGIC: Denies bleeding disorders. LYMPHATIC: The patient denies any lumps and bumps around the neck. GENITOURINARY: Denies any blood in urine or increased urinary frequency. MUSCULOSKELETAL: Denies myalgias. Denies joint swelling. Denies decreased range of motion beyond patients baseline. SKIN: Denies pruitis. Denies rash. PHYSICAL EXAM: VITAL SIGNS: Reviewed GENERAL: Well-developed in no acute distress. HEENT: No sclera icterus. Extraocular movements grossly intact. Moist buccal mucosa. Head is atraumatic, normocephalic. Hears conversational speech. No nasal drainage. NECK: Supple without lymphadenopathy. CHEST: Non-labored respirations and equal bilateral excursions. CARDIOVASCULAR: Palpable 2+ radial pulses. ABDOMEN: Soft. Nondistended. Tenderness with palpation of the right upper quadrant. Tenderness with palpation of the right lower abdomen next to her he aled midline abdominal incision MUSCULOSKELETAL: No clubbing or cyanosis. NEUROLOGIC: No focal or lateralizing signs. Cranial nerves II through XII grossly intact. PSYCH: Appropriate affect. Alert and oriented to person, place and time. SKIN: Well perfused. Good skin turgor. LABORATORY DATA: WBC 7.3H she be 15.6 platelets 323 Sodium 139 K4.1 creatinine 0.45 LFTs normal Lipase 763 lipase 113 Urinalysis negative COVID-19 not detected IMAGING: Computed tomography scan demonstrates postoperative changes. Correlate for enteritis Gallbladder ultrasound demonstrates hypoechoic somewhat irregular area within the right lobe of the liver measuring 8 cm. Computed tomography scan of abdomen does not demonstrate an area of abnormality in this region. Radiologist recommends MRI. ASSESSMENT: 1. Abdominal pain 2. Acute pancreatitis. Ultrasound shows no evidence of gallstones 3. Irregular area within right lobe of liver measuring 8 cm noted on ultrasound 4. Sigmoid diverticulitis with abscess and colovesical fistula status post Cummings's procedure and colostomy placement with colostomy reversal 5. History of fibromyalgia 6. History of brain aneurysm 7. History of intra-abdominal adhesions 8. Prior history of pulmonary embolism 9. History of depressive disorder PLAN: -Ordered HIDA scan for further evaluation of gallbladder dysfunction -Add Tylenol and IV Toradol scheduled for pain -Start clear liquid diet -Continue IV fluids Thank you for this consultation Physician Technical Architect note has been reviewed by physician. Signing provider agrees with the documented findings, assessment, and plan of care. Past Medical History Past Medical History: Asthma, COPD, Fibromyalgia, Hyperlipidemia, Hypertension, Musculoskeletal Disorder, Osteoarthritis (OA), Pulmonary Embolus (PE) Additional Past Medical History / Comment(s): CHRONIC DIVERTICULITIS. Pancreatitis, chronic pain, DDD, DJD, cervical/back pain/bilateral scoliosis, spondylosis, neuropathy bilat hands and feet, pulmonary embolism R lung, brain aneurysm being monitored. History of Any Multi-Drug Resistant Organisms: None Reported Past Surgical History: Bowel Resection, Hysterectomy, Tubal Ligation Additional Past Surgical History / Comment(s): DECEMBER 2020 BOWEL RESECTION WITH COLOSTOMY. D&C, angiograms d/t cerebral aneurysm. Colostomy reversal Past Anesthesia/Blood Transfusion Reactions: No Reported Reaction Additional Past Anesthesia/Blood Transfusion Reaction / Comm: motion sick as a child Past Psychological History: Anxiety, Depression Additional Psychological History / Comment(s): Pt lives with her son and his fiancee. Smoking Status: Current every day smoker Past Alcohol Use History: None Reported Additional Past Alcohol Use History / Comment(s): Pt started smoking in 1977, 1/2 ppd smoker, down to few cigarettes daily. She drank heavily in the past but has not drank alcohol since 2009. Past Drug Use History: Marijuana Additional Drug Use History / Comment(s): uses daily - Past Family History Mother Family Medical History: Cancer, Coronary Artery Disease (CAD) Additional Family Medical History / Comment(s): Mother had uterine cancer. Sister(s) Family Medical History: Cancer, Neurologic Disorder Additional Family Medical History / Comment(s): parkinsonism; uterine, lung cancer. Brother(s) Family Medical History: Cancer Additional Family Medical History / Comment(s): Pt had 2 brothers with cancer - 1 leukemia. Medications and Allergies Home Medications Medication Instructions Recorded Confirmed Type Multivitamins, Thera [Multivitamin 1 tab PO DAILY 01/27/21 06/10/21 History (formulary)] Albuterol Inhaler [Ventolin Hfa 1 puff INHALATION RT-Q4H PRN 04/16/21 06/10/21 History Inhaler] Loratadine [Claritin] 10 mg PO DAILY 04/17/21 06/10/21 History Acetaminophen Tab [Tylenol Tab] 1,000 mg PO Q6H PRN 06/10/21 06/10/21 History polyethylene glycoL 3350 [Miralax] 17 gm PO DAILY 06/10/21 06/10/21 History Allergies Allergy/AdvReac Type Severity Reaction Status Date / Time ibuprofen AdvReac Abdominal Verified 06/10/21 17:03 Pain Surgical - Exam Vital Signs Temp Pulse Resp BP Pulse Ox 97.8 F 93 20 121/88 95 06/10/21 13:06 06/10/21 13:06 06/10/21 13:06 06/10/21 13:06 06/10/21 13:06 Results - Labs 06/10/21 13:24 06/10/21 13:24 Abnormal Lab Results - Last 24 Hours (Table) 06/10/21 06/10/21 Range/Units 13:24 13:24 Hct 46.7 H (34.0-46.0) % Creatinine 0.45 L (0.52-1.04) mg/dL Calcium 10.3 H (8.4-10.2) mg/dL Amylase 113 H (30-110) U/L Lipase 763 H (23-300) U/L Diabetes panel 06/10/21 Range/Units 13:24 Sodium 139 (137-145) mmol/L Potassium 4.1 (3.5-5.1) mmol/L Chloride 107 (98-107) mmol/L Carbon Dioxide 22 (22-30) mmol/L BUN 10 (7-17) mg/dL Creatinine 0.45 L (0.52-1.04) mg/dL Glucose 96 (74-99) mg/dL Calcium 10.3 H (8.4-10.2) mg/dL AST 21 (14-36) U/L ALT 14 (4-34) U/L Alkaline Phosphatase 69 (38-126) U/L Total Protein 8.0 (6.3-8.2) g/dL Albumin 4.5 (3.5-5.0) g/dL Calcium panel 06/10/21 Range/Units 13:24 Calcium 10.3 H (8.4-10.2) mg/dL Albumin 4.5 (3.5-5.0) g/dL Pituitary panel 06/10/21 Range/Units 13:24 Sodium 139 (137-145) mmol/L Potassium 4.1 (3.5-5.1) mmol/L Chloride 107 (98-107) mmol/L Carbon Dioxide 22 (22-30) mmol/L BUN 10 (7-17) mg/dL Creatinine 0.45 L (0.52-1.04) mg/dL Glucose 96 (74-99) mg/dL Calcium 10.3 H (8.4-10.2) mg/dL Adrenal panel 06/10/21 Range/Units 13:24 Sodium 139 (137-145) mmol/L Potassium 4.1 (3.5-5.1) mmol/L Chloride 107 (98-107) mmol/L Carbon Dioxide 22 (22-30) mmol/L BUN 10 (7-17) mg/dL Creatinine 0.45 L (0.52-1.04) mg/dL Glucose 96 (74-99) mg/dL Calcium 10.3 H (8.4-10.2) mg/dL Total Bilirubin 0.3 (0.2-1.3) mg/dL AST 21 (14-36) U/L ALT 14 (4-34) U/L Alkaline Phosphatase 69 (38-126) U/L Total Protein 8.0 (6.3-8.2) g/dL Albumin 4.5 (3.5-5.0) g/dL
[2021-06-11 13:08] LABS: Glucose,Whole Blood 73 mg/dL (75-99)
[2021-06-11 13:36] LABS: Amylase 49 U/L (30-110); Lipase 198 U/L (23-300)
[2021-06-11] MEDS: ACETAMINOPHEN TAB 500 MG TAB PO SCH ×2 (14:40→15:29)
--- NOTE | 2021-06-11 15:07 | P.HPIM ---
History of Present Illness H&P Date: 06/11/21 Chief Complaint: Post surgical pain This is a 60-year-old female status post colostomy reversal, presenting with right lower quadrant abdominal pain, with past medical history of recent extensive lysis of intra-abdominal and intrapelvic adhesions, low anterior resection with sigmoid colectomy, takedown and repair of enteric, Colovesical and colovaginal fistula with descending Colostomy reversal in March 2021. Patient reports since reversal surgery, she is having ongoing pain that is never relieved. Reports regular bowel movement every day, ongoing nausea, no emesis with eating irregardless of what she consumes. Denies diaphoresis chills or body aches. Denies alcohol consumption. Denies chest pain, palpitations or shortness of breath. Reports she has not followed up with Dr. Jones since surgery. Maintain on IV fluid hydration. afebrile, normal WBC. Hemoglobin 15.6, platelets 323, which is within normal limits, renal function stable. Amylase 113, lipase 763 on admission currently down to 49 and 198 with IV fluid hydration. UA negative, coronavirus not detected. ET of abdomen and pelvis reported postop changes at the level of the rectosigmoid, fluid-filled colonic loops. Gallbladder ultrasound reporting hypoechoic irregular area within the right lobe of the liver measuring 8 cm. Past Medical History Past Medical History: Asthma, COPD, Fibromyalgia, Hyperlipidemia, Hypertension, Musculoskeletal Disorder, Osteoarthritis (OA), Pulmonary Embolus (PE) Additional Past Medical History / Comment(s): CHRONIC DIVERTICULITIS. Pancreatitis, chronic pain, DDD, DJD, cervical/back pain/bilateral scoliosis, spondylosis, neuropathy bilat hands and feet, pulmonary embolism R lung, brain aneurysm being monitored. History of Any Multi-Drug Resistant Organisms: None Reported Past Surgical History: Bowel Resection, Hysterectomy, Tubal Ligation Additional Past Surgical History / Comment(s): DECEMBER 2020 BOWEL RESECTION WITH COLOSTOMY. D&C, angiograms d/t cerebral aneurysm. Colostomy reversal Past Anesthesia/Blood Transfusion Reactions: No Reported Reaction Additional Past Anesthesia/Blood Transfusion Reaction / Comment(s): motion sick as a child Past Psychological History: Anxiety, Depression Additional Psychological History / Comment(s): Pt lives with her son and his fiancee. Smoking Status: Current every day smoker Past Alcohol Use History: None Reported Additional Past Alcohol Use History / Comment(s): Pt started smoking in 1977, 1/2 ppd smoker, down to few cigarettes daily. She drank heavily in the past but has not drank alcohol since 2009. Past Drug Use History: Marijuana Additional Drug Use History / Comment(s): uses daily - Past Family History Mother Family Medical History: Cancer, Coronary Artery Disease (CAD) Additional Family Medical History / Comment(s): Mother had uterine cancer. Sister(s) Family Medical History: Cancer, Neurologic Disorder Additional Family Medical History / Comment(s): parkinsonism; uterine, lung cancer. Brother(s) Family Medical History: Cancer Additional Family Medical History / Comment(s): Pt had 2 brothers with cancer - 1 leukemia. Medications and Allergies Home Medications Medication Instructions Recorded Confirmed Type Multivitamins, Thera [Multivitamin 1 tab PO DAILY 01/27/21 06/10/21 History (formulary)] Albuterol Inhaler [Ventolin Hfa 1 puff INHALATION RT-Q4H PRN 04/16/21 06/10/21 History Inhaler] Loratadine [Claritin] 10 mg PO DAILY 04/17/21 06/10/21 History Acetaminophen Tab [Tylenol Tab] 1,000 mg PO Q6H PRN 06/10/21 06/10/21 History polyethylene glycoL 3350 [Miralax] 17 gm PO DAILY 06/10/21 06/10/21 History Allergies Allergy/AdvReac Type Severity Reaction Status Date / Time ibuprofen AdvReac Abdominal Verified 06/10/21 17:03 Pain Physical Exam Vitals: Vital Signs Temp Pulse Pulse Resp BP BP Pulse Ox 06/11/21 08:00 18 06/11/21 06:59 98.0 F 63 18 130/52 96 06/11/21 02:00 97.7 F 97 16 128/84 97 06/10/21 22:38 97.8 F 69 16 150/81 95 06/10/21 16:15 78 18 126/75 95 Intake and Output 06/10/21 06/11/21 06/11/21 22:59 06:59 14:59 Other: # Voids 2 Weight 81.647 kg - Exam PHYSICAL EXAM: VITAL SIGNS: As above GENERAL: Sitting up in bed, no acute distress HEENT: Conjunctivae normal. eyes normal. Oral mucosa moist NECK: No JVD. No thyroid enlargement. No LNs CARDIOVASCULAR: S1, S2 regular.No murmur RESPIRATION: Breath sounds diminished in the bases. No rhonchi or crackles. ABDOMEN: Soft, nondistended, right lower quadrant tenderness, No guarding. Positive Bowel sounds heard. LEGS: No edema. no swelling PSYCHIATRY: Alert and oriented X3, mood and affect normal. NERVOUS SYSTEM: Cranial N 2-12 grossly normal. Moves all 4 limbs. No focal deficits. Strength and sensation grossly intact. Skin: Warm and dry, no rash Results CBC & Chem 7: 06/10/21 13:24 06/10/21 13:24 Labs: Abnormal Lab Results - Last 24 Hours (Table) 06/11/21 Range/Units 12:21 POC Glucose (mg/dL) 73 L (75-99) mg/dL Assessment and Plan Assessment: Acute Pancreatitis, rule out colitis, post surgical pain Irregular 8 cm area with the right lobe of liver reported on gallbladder ultrasound Recent extensive lysis of intra-abdominal and intrapelvic adhesions, low anterior resection with sigmoid colectomy, takedown and repair of enteric, Colovesical and colovaginal fistula with descending Colostomy reversal 03/2021. History of asthma and COPD Fibromyalgia Hypertension Degenerative joint disease Anxiety and depression Plan: Continue on current medication regime ,monitoring and symptomatic treatment. CRP and pro calcitonin ordered. Maintain gentle IV fluid hydration. Pain management. Increase ambulation as tolerated. Follow closely with surgery. The impression and plan of care has been dictated as directed. : I performed a history and examination of this patient, discussed the same with the dictator. I agree with the dictator's note ,documented as a scribe. Any additional findings or plans will be noted.
[2021-06-11] MEDS: KETOROLAC 30 MG/ML 1 ML VIAL IVP SCH ×2 (15:33→20:06)
[2021-06-11] MEDS: ONDANSETRON 4 MG/2 ML VIAL IVP PRN (20:07)
[2021-06-12] MEDS: ACETAMINOPHEN TAB 500 MG TAB PO SCH ×5 (00:07→23:57)
[2021-06-12] MEDS: SODIUM CHLORIDE 0.9% 1,000 ML IV SCH ×4 (00:08→21:25)
[2021-06-12] MEDS: KETOROLAC 30 MG/ML 1 ML VIAL IVP SCH ×4 (04:02→21:24)
--- NOTE | 2021-06-12 10:59 | P.PN ---
Subjective Progress Note Date: 06/12/21 This is a 60-year-old female status post colostomy reversal, presenting with right lower quadrant abdominal pain, with past medical history of recent extensive lysis of intra-abdominal and intrapelvic adhesions, low anterior resection with sigmoid colectomy, takedown and repair of enteric, Colovesical and colovaginal fistula with descending Colostomy reversal in March 2021. Patient reports since reversal surgery, she is having ongoing pain that is never relieved. Reports regular bowel movement every day, ongoing nausea, no emesis with eating irregardless of what she consumes. Denies diaphoresis chills or body aches. Denies alcohol consumption. Denies chest pain, palpitations or shortness of breath. Reports she has not followed up with Dr. Jones since surgery. Maintain on IV fluid hydration. afebrile, normal WBC. Hemoglobin 15.6, platelets 323, which is within normal limits, renal function stable. Amylase 113, lipase 763 on admission currently down to 49 and 198 with IV fluid hydration. UA negative, coronavirus not detected. ET of abdomen and pelvis reported postop changes at the level of the rectosigmoid, fluid-filled colonic loops. Gallbladder ultrasound reporting hypoechoic irregular area within the right lobe of the liver measuring 8 cm. 06/12/2021 maintain on IV fluid hydration. Positive bowel movement yesterday. Reports abdominal pain unchanged. Scheduled for HIDA scan. Denies chest pain, palpitations or shortness of breath. Denies nausea or vomiting. CRP less than 0.3, pro-calcitonin less than 0.02. Afebrile, vital signs stable, maintaining O2 sats in the in the mid to high 90s on room air. Objective - Vital Signs Vital signs: Vital Signs Temp 98.5 F 06/12/21 07:00 Pulse 85 06/12/21 07:00 Resp 16 06/12/21 07:00 BP 146/88 06/12/21 07:00 Pulse Ox 95 06/12/21 07:00 Intake & Output 06/11/21 06/12/21 06/12/21 18:59 06:59 18:59 Intake Total 830 500 Balance 830 500 Intake: IV 650 Sodium Chloride 0.9% 1, 650 000 ml @ 130 mls/hr IV . Q7H42M [facility] Rx#:[id number] Oral 180 500 Other: Voiding Method Toilet Toilet # Voids 1 1 - Exam - Exam PHYSICAL EXAM: VITAL SIGNS: As above GENERAL: Alert and oriented 3, Sitting up in bed, no acute distress HEENT: Conjunctivae normal. eyes normal. NECK: No JVD. No thyroid enlargement. No LNs CARDIOVASCULAR: S1, S2 regular.No murmur RESPIRATION: Breath sounds diminished in the bases. No rhonchi or crackles. ABDOMEN: Soft, nondistended, right lower quadrant tenderness, No guarding. Positive Bowel sounds heard. LEGS: No edema. no swelling NERVOUS SYSTEM: Cranial N 2-12 grossly normal. Moves all 4 limbs. No focal deficits. Strength and sensation grossly intact. Skin: Warm and dry, no rash - Labs CBC & Chem 7: 06/10/21 13:24 06/10/21 13:24 Labs: Abnormal Lab Results - Last 24 Hours (Table) 06/11/21 06/11/21 Range/Units 12:21 13:04 POC Glucose (mg/dL) 73 L (75-99) mg/dL Procalcitonin <0.02 L (0.02-0.09) ng/mL Assessment and Plan Assessment: Acute Pancreatitis, rule out colitis, post surgical pain Irregular 8 cm area with the right lobe of liver reported on gallbladder ultrasound Recent extensive lysis of intra-abdominal and intrapelvic adhesions, low anterior resection with sigmoid colectomy, takedown and repair of enteric, Colovesical and colovaginal fistula with descending Colostomy reversal 03/2021. History of asthma and COPD Fibromyalgia Hypertension Degenerative joint disease Anxiety and depression Plan: Continue on current medication regime ,monitoring and symptomatic treatment. Maintain gentle IV fluid hydration. HIDA scan pending. Pain manag ement. Increase ambulation as tolerated. The impression and plan of care has been dictated as directed. : I performed a history and examination of this patient, discussed the same with the dictator. I agree with the dictator's note ,documented as a scribe. Any additional findings or plans will be noted.
--- NOTE | 2021-06-12 12:59 | NM ---
EXAMINATION TYPE: NM hepatobiliary w CCK DATE OF EXAM: 06/12/2021 COMPARISON: Ultrasound gallbladder 06/11/2021, CT abdomen and pelvis 06/10/2021 HISTORY: Right upper quadrant pain, abdominal pain TECHNIQUE: After the intravenous administration of 5.2 mCi Tc 99m Mebrofenin hepatobiliary scintigrap hy is performed. Immediate images post injection. FINDINGS: There is satisfactory initial accumulation of tracer by the liver. The gallbladder is visualized wit hin 5 minutes. The small bowel activity is noted within 12 minutes. At one hour CCK was administere d, patient was injected with 1.6 mcg of Kinevac, and gallbladder ejection fraction is calculated at 1 4 %, below the lower limit of normal. Therefore there is no scintigraphic evidence of cystic or comm on bile duct obstruction. IMPRESSION: Abnormal low gallbladder ejection fraction
[2021-06-12] MEDS: MORPHINE SULFATE 4 MG/ML SYRINGE IV PRN ×2 (13:08→19:12)
--- NOTE | 2021-06-12 14:40 | P.PN ---
Subjective Progress Note Date: 06/12/21 CHIEF COMPLAINT: Abdominal pain HISTORY OF PRESENT ILLNESS: Patient still complaining of right sided mid abdominal pain across from her umbilicus. She reports that she has had no improvement in her pain. She denies any nausea or vomiting. Afebrile. Her amylase and lipase normalized. HIDA scan completed this morning shows an abnormal low gallbladder EF of 14% PHYSICAL EXAM: VITAL SIGNS: Reviewed GENERAL: Well-developed in no acute distress. HEENT: No sclera icterus. Extraocular movements grossly intact. Moist buccal mucosa. Head is atraumatic, normocephalic. Hears conversational speech. No nasal drainage. NECK: Supple without lymphadenopathy. CHEST: Non-labored respirations and equal bilateral excursions. CARDIOVASCULAR: Palpable 2+ radial pulses. ABDOMEN: Soft. Nondistended. Tenderness with palpation of the right mid abdomen across from the umbilicus. MUSCULOSKELETAL: No clubbing or cyanosis. NEUROLOGIC: No focal or lateralizing signs. Cranial nerves II through XII damien ssly intact. PSYCH: Appropriate affect. Alert and oriented to person, place and time. SKIN: Well perfused. Good skin turgor. ASSESSMENT: 1. Biliary dyskinesia with abnormal HIDA scan showing an EF of 14%. 2. Abdominal pain 3. Acute pancreatitis. Ultrasound shows no evidence of gallstones 4. Irregular area within right lobe of liver measuring 8 cm noted on ultrasound 5. Sigmoid diverticulitis with abscess and colovesical fistula status post Cummings's procedure and colostomy placement with colostomy reversal 6. History of fibromyalgia 7. History of brain aneurysm 8. History of intra-abdominal adhesions 9. Prior history of pulmonary embolism 10. History of depressive disorder PLAN: -Plan for Robotic Cholecystectomy on 06/15/[address] Leo -Advance diet to full liquids -Continue pain medication as needed -Encourage patient to ambulate Physician Director Of Promotions note has been reviewed by physician. Signing provider agrees with the documented findings, assessment, and plan of care. Objective - Vital Signs Vital signs: Vital Signs Temp 98.0 F 06/12/21 14:15 Pulse 68 06/12/21 14:15 Resp 18 06/12/21 14:15 BP 159/89 06/12/21 14:15 Pulse Ox 95 06/12/21 14:15 Intake & Output 06/11/21 06/12/21 06/12/21 18:59 06:59 18:59 Intake Total 830 500 Balance 830 500 Intake: IV 650 Sodium Chloride 0.9% 1, 650 000 ml @ 130 mls/hr IV . Q7H42M [facility] Rx#:[id number] Oral 180 500 Other: Voiding Method Toilet Toilet Toilet # Voids 1 1 - Labs CBC & Chem 7: 06/10/21 13:24 06/10/21 13:24 Labs: Abnormal Lab Results - Last 24 Hours (Table) 06/11/21 Range/Units 13:04 Procalcitonin <0.02 L (0.02-0.09) ng/mL
[2021-06-13] MEDS: KETOROLAC 30 MG/ML 1 ML VIAL IVP SCH ×4 (03:39→21:49)
[2021-06-13] MEDS: ACETAMINOPHEN TAB 500 MG TAB PO SCH ×3 (05:15→20:51)
[2021-06-13] MEDS: SODIUM CHLORIDE 0.9% 1,000 ML IV SCH (05:37)
[2021-06-13] MEDS: MORPHINE SULFATE 4 MG/ML SYRINGE IV PRN (08:30)
--- NOTE | 2021-06-13 11:13 | P.PN ---
Progress Note - Text Progress Note Date: 06/13/21 Patient states she feels better. She is requesting something more to be. On exam vitals are stable. End soft. Patient scheduled for laparoscopically cholecystectomy on Tuesday with Dr. Jones. We will add protein shakes to her diet.
[2021-06-13] MEDS ORDERED: HYDROmorphone 1 MG/ML 1 ML SYRINGE IVP PRN (12:08)
[2021-06-13] MEDS ORDERED: HYDROmorphone 0.5 MG/0.5 ML SYRINGE IVP PRN (12:08)
[2021-06-13] MEDS ORDERED: HYDROmorphone 1 MG/ML 1 ML SYRINGE IVP STA (12:09)
[2021-06-13 12:13] LABS: Glucose,Whole Blood 88 mg/dL (75-99)
[2021-06-13] MEDS ORDERED: LORazepam 0.5 MG TAB PO PRN (12:20)
[2021-06-13 12:48] LABS: HGB 15.2 gm/dL (11.4-16.0); MCH 29.5 pg (25.0-35.0); MCV 89.4 fL (80.0-100.0); Mean Platelet Volume 6.7; Platelet Count 283 k/uL (150-450); RBC 5.15 m/uL (3.80-5.40); RDW 13.2 % (11.5-15.5); WBC 7.7 k/uL (3.8-10.6)
[2021-06-13] MEDS: MORPHINE SULFATE 4 MG/ML SYRINGE IVP PRN ×2 (12:50→19:57)
[2021-06-13] MEDS: PANTOPRAZOLE 40 MG/10 ML VIAL IVP SCH ×2 (12:51→19:59)
[2021-06-13 13:07] LABS: ALT 16 U/L (4-34); AST 25 U/L (14-36); African American GFR (CKD) >90 (>60 ml/min/1.73 sqM); Albumin 4.2 g/dL (3.5-5.0); Albumin/Globulin Ratio 1.2; Alkaline Phosphatase 60 U/L (38-126); Anion Gap 9 mmol/L; Blood Urea Nitrogen 6 mg/dL (7-17); Calcium 9.7 mg/dL (8.4-10.2); Carbon Dioxide 22 mmol/L (22-30); Chloride 109 mmol/L (98-107); Globulin 3.4 g/dL; Glucose 87 mg/dL (74-99); Non-African American GFR(CKD) >90 (>60 ml/min/1.73 sqM); Potassium 3.4 mmol/L (3.5-5.1); Sodium 140 mmol/L (137-145); Total Bilirubin 0.6 mg/dL (0.2-1.3); Total Protein 7.6 g/dL (6.3-8.2)
[2021-06-13] MEDS ORDERED: ALBUTEROL NEBULIZED 2.5 MG/3 ML INHALATION PRN (18:21)
[2021-06-13] MEDS ORDERED: HYDROcodone/APAP 5-325MG 1 EACH TAB PO PRN (18:22)
[2021-06-13] MEDS: HEPARIN SODIUM,PORCINE/PF 5,000 UNIT/0.5 ML SYRINGE SQ SCH (19:59)
[2021-06-13] MEDS: NICOTINE 14MG/24HR PATCH TRANSDERM SCH (19:59)
[2021-06-13] MEDS: D5-0.9% NACL WITH KCL 20 MEQ/L 1,000 ML IV SCH (20:51)
[2021-06-13] MEDS ORDERED: TEMAZEPAM 15 MG CAP PO PRN (21:00)
--- NOTE | 2021-06-13 21:10 | PN ---
PROGRESS NOTE I am covering for Dr. Berg. DATE OF SERVICE: This 60-year-old woman who was admitted with significant abdominal pain and acute pancreatitis also had an irregular 8 cm area on the right lobe of the liver. The patient had recent extensive lysis of intraabdominal and intrapelvic adhesions. Patient is complaining of severe pain at this time. Patient is also complaining of pain while moving the legs. The HIDA scan showed delayed ejection fraction, and cholecystomy is being planned at this time. Otherwise, CT scan of the abdomen and pelvis was reviewed personally by me. Past medical history reviewed. REVIEW OF SYSTEMS: CARDIOVASCULAR SYSTEM: No angina. RESPIRATION: As mentioned earlier. GI: As mentioned earlier. : No dysuria. NERVOUS SYSTEM: No numbness, weakness. CURRENT MEDICATIONS: Reviewed. They include Tylenol, Toradol, Ativan, morphine sulfate, Protonix. The doses are reviewed. PHYSICAL EXAMINATION: Patient alert and oriented x3. Pulse 58, blood pressure 158/84, respirations 16, temperature normal, pulse ox 94% on room air. HEENT: Conjunctivae normal. NECK: No jugular venous distention. CARDIOVASCULAR: S1, S2 muffled. RESPIRATION: Breath sounds diminished at the bases. A few scattered rhonchi and crackles. ABDOMEN: Soft. Mild diffuse tenderness present. No guarding or rigidity. No mass palpable. LEGS: No edema. No swelling. NERVOUS SYSTEM: No focal deficit. LABS: CBC within normal limits. Potassium 3.4. Procalcitonin less than 0.012. ASSESSMENT: 1. Severe abdominal pain, possibly secondary from acute pancreatitis. 2. Irregular 8 cm area in the right lobe of the liver. 3. Recent lysis of intraabdominal intrapelvic adhesions. 4. Possible chronic cholecystitis. 5. History of repair of enterocolovesical and colovaginal fistula, descending colostomy and reversal in 03/2021. 6. Asthma, chronic obstructive pulmonary disease. 7. History of fibromyalgia. 8. Hypokalemia. 9. History of chronic obstructive pulmonary disease. 10.Hypertension. 11.Hyperlipidemia. 12.History of degenerative joint disease. 13.History of pulmonary embolism. 14.History of chronic diverticulosis. 15.History of bowel resection. 16.History of hysterectomy. 17.History of anxiety, depression. 18.History of nicotine dependence. 19.FULL CODE. RECOMMENDATIONS AND DISCUSSION: This 60-year-old woman who presented with multiple complex medical issues, we will monitor the patient closely, continue the current medications, continue symptomatic treatment. Optimize pain medications. Increase the morphine. Continue with IV fluids, symptomatic treatment, DVT prophylaxis. Resume the home medications. Add ketorolac to the current regimen. Guarded prognosis. Further recommendations to follow. MANOJ / AMALIA: [id number] /
[2021-06-14] MEDS: ACETAMINOPHEN TAB 500 MG TAB PO SCH ×4 (02:09→17:22)
[2021-06-14] MEDS: D5-0.9% NACL WITH KCL 20 MEQ/L 1,000 ML IV SCH ×2 (02:13→17:23)
[2021-06-14] MEDS: KETOROLAC 30 MG/ML 1 ML VIAL IVP SCH ×3 (02:14→17:21)
[2021-06-14] MEDS: MORPHINE SULFATE 4 MG/ML SYRINGE IVP PRN ×2 (06:33→12:05)
[2021-06-14] MEDS: PANTOPRAZOLE 40 MG/10 ML VIAL IVP SCH ×2 (09:06→21:30)
[2021-06-14] MEDS: NICOTINE 14MG/24HR PATCH TRANSDERM SCH ×2 (09:07→21:52)
[2021-06-14] MEDS: HEPARIN SODIUM,PORCINE/PF 5,000 UNIT/0.5 ML SYRINGE SQ SCH ×2 (09:07→21:31)
[2021-06-14] MEDS ORDERED: Potassium Replacement Protocol 1 EACH MISC MISCELLANE PRN (11:24)
[2021-06-14 12:25] LABS: Basophils # (A) 0.06 X 10*3/uL (0.00-0.10); Basophils % (A) 0.9 %; Eosinophils # (A) 0.16 X 10*3/uL (0.04-0.35); Eosinophils % (A) 2.3 %; HCT 45.2 % (37.2-46.3); HGB 14.8 g/dL (12.0-15.0); Lymphocytes # (A) 2.62 X 10*3/uL (0.90-5.00); Lymphocytes % (A) 37.4 %; MCH 29.1 pg (27.0-32.0); MCHC 32.7 g/dL (32.0-37.0); Mean Platelet Volume 9.5 fL (9.5-12.2); Monocytes # (A) 0.84 X 10*3/uL (0.20-1.00); Neutrophils # (A) 3.31 X 10*3/uL (1.80-7.70); Neutrophils % (A) 47.1 %; Platelet Count 284 X 10*3/uL (140-440); RBC 5.08 X 10*6/uL (4.10-5.20); RDW 13.2 % (11.5-14.5); WBC 7.01 X 10*3/uL (4.50-10.00)
--- NOTE | 2021-06-14 12:53 | P.PN ---
Progress Note - Text Progress Note Date: 06/14/21 Patient may still. She denies a significant abdominal pain. She is scheduled for laparoscopic cholecystectomy in the a.m. with Dr. Jones
[2021-06-14 13:09] LABS: African American GFR (CKD) 122.8 (60.0-200.0); Anion Gap 15.5 mmol/L (4.00-12.00); BUN/Creat Ratio 14.4 Ratio (12.00-20.00); Blood Urea Nitrogen 7.2 mg/dL (9.0-27.0); Calcium 9.6 mg/dL (8.7-10.3); Carbon Dioxide 21.5 mmol/L (21.6-31.8); Non-African American GFR(CKD) 105.9 (60.0-200.0); Potassium 3.5 mmol/L (3.5-5.5)
--- NOTE | 2021-06-14 19:03 | PN ---
PROGRESS NOTE DATE OF SERVICE: 06/14/2021 I am covering for Dr. Berg. This 60-year-old woman who was admitted with severe abdominal pain, had severe acute pancreatitis. Dr. Leo is planning a laparoscopic cholecystectomy tomorrow. No chest pain. No palpitations. No fever. PHYSICAL EXAMINATION: Alert and oriented times three. Pulse 75, blood pressure 141/87, respiration 16, temperature 98 degrees, pulse ox 97% on room air. HEENT: Conjunctivae normal. NECK: No JVD. CARDIOVASCULAR: S1, S2. RESPIRATIONS: Breath sounds diminished in the bases. ABDOMEN: Soft. Mild diffuse tenderness. LEGS: No edema. No swelling. NERVOUS SYSTEM: No focal deficits. LABS: CBC within normal limits. Sodium 140, potassium 3.5. ASSESSMENT: 1. Severe abdominal pain, possibly secondary to acute pancreatitis. 2. Irregular 8 cm in the right lobe of the liver. 3. Recent lysis of intraabdominal and intrapelvic adhesions. 4. Laparoscopic cholecystectomy with for possible chronic cholecystitis. 5. History of repair of enterovesical and colovaginal fistula, descending colostomy reversal in 2020. 6. Asthma, chronic obstructive pulmonary disease. 7. History of fibromyalgia. 8. Hypocalcemia. 9. History of chronic obstructive pulmonary disease. 10.Hypertension. 11.Hyperlipidemia. 12.History of degenerative joint disease. 13.History of pulmonary embolus. 14.History of chronic diverticulosis. 15.History of bowel resection. 16.History of hysterectomy. 17.History of anxiety, depression. 18.History of nicotine dependence. 19.FULL CODE. RECOMMENDATIONS AND DISCUSSION: Continue current medications, management and symptomatic treatment. Continue the bronchodilators. Continue DVT prophylaxis. Otherwise, possible surgery tomorrow and Dr. Berg will follow tomorrow. MMODL / IJN: [id number] /
[2021-06-15] MEDS: ACETAMINOPHEN TAB 500 MG TAB PO SCH ×5 (00:16→18:18)
[2021-06-15] MEDS: D5-0.9% NACL WITH KCL 20 MEQ/L 1,000 ML IV SCH ×2 (06:28→17:24)
[2021-06-15] MEDS: PANTOPRAZOLE 40 MG/10 ML VIAL IVP SCH ×2 (08:19→20:06)
[2021-06-15] MEDS: HEPARIN SODIUM,PORCINE/PF 5,000 UNIT/0.5 ML SYRINGE SQ SCH ×2 (08:20→20:06)
[2021-06-15] MEDS: MORPHINE SULFATE 4 MG/ML SYRINGE IVP PRN ×2 (08:29→18:15)
[2021-06-15] MEDS: NICOTINE 14MG/24HR PATCH TRANSDERM SCH (08:38)
--- NOTE | 2021-06-15 09:01 | P.PN ---
Subjective Progress Note Date: 06/15/21 CHIEF COMPLAINT: Cholecystitis HISTORY OF PRESENT ILLNESS: The patient is a 60-year-old female pancreatitis. Additional diagnostic studies demonstrate cholecystitis. She reports worsening right upper quadrant abdominal pain. ROS: No fevers or chills. No new chest pain. No productive sputum PHYSICAL EXAM: VITAL SIGNS: Reviewed CONSTITUTIONAL: Well developed and in no acute distress. EYES: Conjuctivae without sclera icterus. Extraocular movements grossly intact. HEAD, EARS, NOSE, THROAT: Moist buccal mucosa. Head is atraumatic, normocephalic. Hears conversational speech. No nasal drainage. NECK: No gross thyroidomegaly. No jugular venous distention. RESPIRATORY: Non-labored respirations and equal bilateral excursions. CARDIOVASCULAR: Palpable 2+ radial pulses. Regular rate. Regular rhythm. ABDOMEN: Well-healed midline incision. Tender right upper quadrant. MUSCULOSKELETAL: No gross deformity of the lower extremities noted. No clubbing. No cyanosis. SKIN: Good skin turgor. Well perfused. NEUROLOGIC: Cranial nerves II through XII grossly intact. No focal or lateral izing signs. PSYCH: Appropriate affect. Alert and oriented to person, place and time. CLINICAL LABS: Reviewed. White blood cell count normal. Lipase normal. ASSESSMENT: 1. Cholecystitis. 2. Pancreatitis, resolving. PLAN: 1. Patient is elevated risk for cholecystectomy due to recent pancreatitis and multiple abdominal surgeries. 2. All questions addressed. Patient also has previous history of peritoneal adhesions which will increase time for surgery. Objective - Vital Signs Vital signs: Vital Signs Temp 97.9 F 06/15/21 01:57 Pulse 74 06/15/21 01:57 Resp 16 06/15/21 01:57 BP 153/89 06/15/21 01:57 Pulse Ox 96 06/15/21 01:57 Intake & Output 06/14/21 06/15/21 06/15/21 18:59 06:59 18:59 Other: # Voids 4 1 - Labs CBC & Chem 7: 06/14/21 06:43 06/14/21 06:43 Labs: Abnormal Lab Results - Last 24 Hours (Table) 06/14/21 Range/Units 06:43 Carbon Dioxide 21.5 L (21.6-31.8) mmol/L Anion Gap 15.50 H (4.00-12.00) mmol/L BUN 7.2 L (9.0-27.0) mg/dL Creatinine 0.5 L (0.6-1.5) mg/dL Assessment and Plan (1) Peritoneal adhesions Current Visit: Yes Status: Acute Code(s): K66.0 - PERITONEAL ADHESIONS (POSTPROCEDURAL) (POSTINFECTION) SNOMED Code(s): 22774926 (2) Biliary dyskinesia Current Visit: Yes Status: Acute Code(s): K82.8 - OTHER SPECIFIED DISEASES OF GALLBLADDER SNOMED Code(s): 941977876 (3) Pancreatitis Current Visit: Yes Status: Acute Code(s): K85.90 - ACUTE PANCREATITIS WITHOUT NECROSIS OR INFECTION, UNSP SNOMED Code(s): 72252840 (4) Cholecystitis Current Visit: No Status: Acute Code(s): K81.9 - CHOLECYSTITIS, UNSPECIFIED SNOMED Code(s): 28507814 (5) Right upper quadrant abdominal pain Current Visit: No Status: Acute Code(s): R10.11 - RIGHT UPPER QUADRANT PAIN SNOMED Code(s): 014398552
[2021-06-15] MEDS ORDERED: IV FLUID CONTINUATION 500 ML IV ONE (13:38)
[2021-06-15] MEDS: ONDANSETRON 4 MG/2 ML VIAL IVP PRN (14:09)
[2021-06-15] MEDS ORDERED: PROPOFOL 10 MG/ML 20 ML VIAL IV ONE (14:23)
[2021-06-15] MEDS ORDERED: GLYCOPYRROLATE 0.2 MG/ML 2 ML VIAL ONE (14:23)
[2021-06-15] MEDS ORDERED: SUCCINYLCHOLINE CHLORIDE 100 MG/5 ML SYR IV ONE (14:23)
[2021-06-15] MEDS ORDERED: MIDAZOLAM 2 MG/2 ML VIAL ONE (14:23)
[2021-06-15] MEDS ORDERED: HYDROmorphone (PF) 1 MG/ML ONE (14:23)
[2021-06-15] MEDS ORDERED: LIDOCAINE 1% INJ 10MG/ML (20 ML MDV) ONE (14:23)
[2021-06-15] MEDS ORDERED: NEOSTIGMINE 1 MG/ML 10 ML VIAL ONE (14:23)
[2021-06-15] MEDS ORDERED: fentaNYL (PF) 50 MCG/ML 2 ML AMP ONE (14:23)
[2021-06-15] MEDS ORDERED: ROCURONIUM 10 MG/ML (5 ML VIAL) IV ONE (14:23)
[2021-06-15] MEDS ORDERED: INDOCYANINE GREEN 25 MG VIAL IV ONE (14:23)
[2021-06-15] MEDS ORDERED: INDOCYANINE GREEN 25 MG VIAL IV STA (14:25)
[2021-06-15] MEDS ORDERED: LACTATED RINGERS 1,000 ML IV ONE ×3 (14:27→15:26)
[2021-06-15] MEDS ORDERED: BUPIVACAIN-EPI 0.25%-1:200,000 30 ML VIAL SQ ONE (14:28)
--- NOTE | 2021-06-15 15:38 | P.PN ---
Subjective Progress Note Date: 06/15/21 This is a 60-year-old female status post colostomy reversal, presenting with right lower quadrant abdominal pain, with past medical history of recent extensive lysis of intra-abdominal and intrapelvic adhesions, low anterior resection with sigmoid colectomy, takedown and repair of enteric, Colovesical and colovaginal fistula with descending Colostomy reversal in March 2021. Patient reports since reversal surgery, she is having ongoing pain that is never relieved. Reports regular bowel movement every day, ongoing nausea, no emesis with eating irregardless of what she consumes. Denies diaphoresis chills or body aches. Denies alcohol consumption. Denies chest pain, palpitations or shortness of breath. Reports she has not followed up with Dr. Jones since surgery. Maintain on IV fluid hydration. afebrile, normal WBC. Hemoglobin 15.6, platelets 323, which is within normal limits, renal function stable. Amylase 113, lipase 763 on admission currently down to 49 and 198 with IV fluid hydration. UA negative, coronavirus not detected. ET of abdomen and pelvis reported postop changes at the level of the rectosigmoid, fluid-filled colonic loops. Gallbladder ultrasound reporting hypoechoic irregular area within the right lobe of the liver measuring 8 cm. 06/12/2021 maintain on IV fluid hydration. Positive bowel movement yesterday. Reports abdominal pain unchanged. Scheduled for HIDA scan. Denies chest pain, palpitations or shortness of breath. Denies nausea or vomiting. CRP less than 0.3, pro-calcitonin less than 0.02. Afebrile, vital signs stable, maintaining O2 sats in the in the mid to high 90s on room air. 06/15/2021 NPO, scheduled for acute cholecystectomy today. Reports no nausea vomiting. Recently medicated with morphine IV push, reporting minimal abdominal pain. Denies chest pain, palpitations or increasing shortness of breath. Afebrile, normal WBC. Renal function stable. Objective - Vital Signs Vital signs: Vital Signs Temp 98 F 06/15/21 13:32 Pulse 75 06/15/21 13:32 Resp 20 06/15/21 13:32 BP 157/89 06/15/21 13:42 Pulse Ox 95 06/15/21 13:32 Intake & Output 06/14/21 06/15/21 06/15/21 18:59 06:59 18:59 Intake Total 1200 Output Total 5 Balance 1195 Intake: IV 1200 Output: Estimated Blood Loss 5 Other: Voiding Method Toilet # Voids 4 1 1 - Exam - Exam PHYSICAL EXAM: VITAL SIGNS: As above GENERAL: Alert and oriented 3, Sitting up in bed, no acute distress HEENT: Conjunctivae normal. eyes normal. NECK: Supple, No JVD. CARDIOVASCULAR: S1, S2 regular.No murmur RESPIRATION: Breath sounds diminished in the bases. No rhonchi or crackles. ABDOMEN: Soft, nondistended, minimal right upper quadrant tenderness, No guarding. Positive Bowel sounds heard. LEGS: No edema. no swelling NERVOUS SYSTEM: Cranial N 2-12 grossly normal. Moves all 4 limbs. No focal deficits. Strength and sensation grossly intact. Skin: Warm and dry, no rash - Labs CBC & Chem 7: 06/14/21 06:43 06/14/21 06:43 Assessment and Plan Assessment: Acute Pancreatitis, resolving Irregular 8 cm area with the right lobe of liver reported on gallbladder ultrasound Possible acute on chronic cholecystitis Recent extensive lysis of intra-abdominal and intrapelvic adhesions, low anterior resection with sigmoid colectomy, takedown and repair of enteric, Colovesical and colovaginal fistula with descending Colostomy reversal 03/2021. History of asthma and COPD Fibromyalgia Hypertension Degenerative joint disease Anxiety and depression Plan: Continue on current medication regime ,monitoring and symptomatic treatment. Maintain gentle IV fluid hydration.Pain management. Aggressive pulmonary toileting with nebulized bronchodilators, incentive spirometer reinforced. The impression and plan of care has been dictated as directed. : I performed a history and examination of this patient, discussed the same with the dictator. I agree with the dictator's note ,documented as a scribe. Any additional findings or plans will be noted.
[2021-06-15] MEDS ORDERED: HYDROmorphone 0.5 MG/0.5 ML SYRINGE IVP ONE ×3 (15:55→16:14)
[2021-06-15] MEDS ORDERED: ONDANSETRON 4 MG/2 ML VIAL IVP ONE (15:59)
[2021-06-15] MEDS: KETOROLAC 30 MG/ML 1 ML VIAL IVP SCH (20:06)
[2021-06-15] MEDS: SODIUM CHLORIDE 0.9% 1,000 ML IV SCH (20:07)
--- NOTE | 2021-06-15 20:07 | P.OP ---
Date of Procedure: 06/15/21 Description of Procedure: SURGEON: PHIL BERGMAN MD PREOPERATIVE DIAGNOSES: 1. Cholecystitis with right upper quadrant abdominal pain 2. Pancreatitis 3. Status post colectomy for diverticulitis with peritoneal adhesions 4. Depressive disorder 5. Tobacco abuse disorder 6. Chronic obstructive pulmonary disease with asthma 7. Pulmonary embolism 8. Hypertensive heart disease 9. Fibromyalgia 10. Neuropathy 11. Spondylosis POSTOPERATIVE DIAGNOSES: 1. Cholecystitis with right upper quadrant abdominal pain 2. Pancreatitis 3. Status post colectomy for diverticulitis with peritoneal adhesions 4. Depressive disorder 5. Tobacco abuse disorder 6. Chronic obstructive pulmonary disease with asthma 7. Pulmonary embolism 8. Hypertensive heart disease 9. Fibromyalgia 10. Neuropathy 11. Spondylosis 12. Peritoneal adhesions OPERATION: 1. Robotic-assisted da Cynthia Xi laparoscopic lysis of adhesions, over 30 minutes 2. Robotic-assisted da Cynthia Xi laparoscopic cholecystectomy, multiport with FIREFLY ESTIMATED BLOOD LOSS: 5 mL. SPECIMENS REMOVED: Gallbladder. COMPLICATIONS: None. OPERATIVE FINDINGS: 1. Severe intra-abdominal adhesions epigastrium mid abdomen including interloop adhesions, small bowel to the abdominal wall. INDICATIONS: The patient is a 60-year-old female who presents with cholecystitis and pancreatitis. Robotic assisted laparoscopic approach was described. Benefits and risks of the procedure including but not limited to bleeding, infection, injury to the biliary tree was described. Informed consent was obtained. DESCRIPTION OF PROCEDURE: Patient was brought to the operating room, placed in supine position. After general induction, the abdomen had been prepped and draped in standard sterile fashion. The robotic da Cynthia XI system was primed. After a timeout protocol was performed, the patient had been prepped and draped in standard sterile fashion. The patient was injected with indocyanine green. A 5 mm 0 degrees laparoscopic trocar entry was performed along the left upper quadrant. The abdomen insufflated to 15 mmHg pressure which was tolerated well. Diagnostic laparoscopy demonstrated no injury to bowel viscera or mesentery. The liver surface was unremarkable. Severe interloop adhesions of upper epi gastrium small bowel to the abdominal wall involving the mid upper abdomen and midline were identified. Trochars were repositioned accordingly. Next, two 8 mm robotic ports were placed along the right upper abdomen. The camera 8-mm port was maintained along the epigastrium. Another 8 mm port was placed along the left upper abdominal wall after exchanging the 5 mm port. Please note that the ports were placed at least 10 to 15 cm away from the target anatomy of the gallbladder. The robot was docked along the left lateral abdomen. The patient was repositioned in reverse Trendelenburg position. Using a grasper for arm 3, a grasper for arm 4, including hook cautery for arm 1, the robotic system was docked and primed as described. Instruments were interchanged by the mobile unit assistant including hook cautery, Bovie cautery and clip appliers. I had sat at the console. Severe intra-abdominal adhesions were addressed using hook cautery for adhesions over 30 minutes. Next attention was brought to the infundibulum and cystic structures. The infundibulum and cystic duct were dissected free from surrounding tissues. The cystic duct was isolated. FIREFLY was used to identify the cystic artery and cystic structures. A critical view of safety was obtained. Large PLASTIC clips were used throughout the entire case. Using a clip pockets and pieces necktie operator, 2 clips were placed at the junction of the infundibulum and cystic duct. The cystic duct was divided between clips. Next, the cystic artery was similarly clipped and cauterized. Electro-Bovie cautery was used to remove the gallbladder from the hepatic fossa. Hemostasis was checked and found to be adequate. The robot was docked to the lower abdomen to address additional adhesions over 30 minutes. The robot was undocked. I re-scrubbed into the case. Using a 10 mm Endo Catch bag via the left upper quadrant incision, the specimen was removed from the abdominal cavity. All pneumoperitoneum instruments were evacuated from the abdominal cavity. The incisions were reapproximated using 4-0 Monocryl in an interrupted subcuticular fashion. Fascial defects were less than 8 mm in size. Please note along the trocar sites, local anesthetic was placed as a field block prior to insertion of all instruments. Liquid glue was applied to the skin. At the end of the procedure needle, sponge, and instrument count had been verified correct by the hand frame surgical elastic knitter. The patient was transferred to postanesthesia care unit in stable condition. Intraoperative films were shared with the patient's family.
[2021-06-15] MEDS: ACETAMINOPHEN IV (For NPO) 1,000 MG in EMPTY BAG 1 BAG IVPB SCH (20:36)
[2021-06-16] MEDS: KETOROLAC 30 MG/ML 1 ML VIAL IVP SCH ×3 (03:07→13:24)
[2021-06-16] MEDS: ACETAMINOPHEN IV (For NPO) 1,000 MG in EMPTY BAG 1 BAG IVPB SCH ×3 (03:07→13:14)
[2021-06-16] MEDS: MORPHINE SULFATE 4 MG/ML SYRINGE IVP PRN (03:35)
[2021-06-16] MEDS: PANTOPRAZOLE 40 MG/10 ML VIAL IVP SCH (08:55)
[2021-06-16] MEDS: HEPARIN SODIUM,PORCINE/PF 5,000 UNIT/0.5 ML SYRINGE SQ SCH (09:00)
[2021-06-16] MEDS: NICOTINE 14MG/24HR PATCH TRANSDERM SCH (09:01)
[2021-06-16 09:08] VITALS: RESP 16
[2021-06-16] MEDS: SODIUM CHLORIDE 0.9% 1,000 ML IV SCH (09:12)
--- NOTE | 2021-06-16 09:50 | P.PN ---
Subjective Progress Note Date: 06/16/21 CHIEF COMPLAINT: Cholecystitis HISTORY OF PRESENT ILLNESS: This a 60-year-old female who was admitted with abdominal pain and diagnosed with pancreatitis. Additional diagnostic studies demonstrated cholecystitis. She was reporting worsening right upper quadrant abdominal pain. Yesterday she underwent robotic-assisted da Cynthia laparoscopic lysis of adhesions and robotic-assisted da Cynthia laparoscopic cholecystectomy, multiport with firefly. Today she is seen and examined stating she has some mild abdominal discomfort at surgical sites. She's not been up or ambulating yet. She did report some dry heaves yesterday evening around 11:30 but since then has been tolerating clear liquids. Patient is awaiting breakfast tray. She denies passing any gas, no bowel movement yet. She's been afebrile. PHYSICAL EXAM: VITAL SIGNS: Reviewed GENERAL: Well-developed in no acute distress. HEENT: No sclera icterus. Extraocular movements grossly intact. Moist buccal mucosa. Head is atraumatic, normocephalic. Hears conversational speech. No nasal drainage. NECK: Supple without lymphadenopathy. CHEST: Non-labored respirations and equal bilateral excursions. CARDIOVASCULAR: Palpable 2+ radial pulses. ABDOMEN: Soft. Nondistended. Nontender. Incision sites clean dry and intact. MUSCULOSKELETAL: No clubbing or cyanosis. NEUROLOGIC: No focal or lateralizing signs. Cranial nerves II through XII grossly intact. PSYCH: Appropriate affect. Alert and oriented to person, place and time. SKIN: Well perfused. Good skin turgor. ASSESSMENT: 1. Cholecystitis with right upper quadrant abdominal pain status post cholecystectomy 2. Pancreatitis 3. Status post colectomy for diverticulitis with peritoneal adhesions 4. Depressive disorder 5. Tobacco abuse disorder 6. Chronic obstructive pulmonary disease with asthma 7. History of pulmonary embolism 8. Hypertensive heart disease 9. Fibromyalgia 10. Neuropathy 11. Spondylolysis 12. Peritoneal adhesions PLAN: 1. Encourage ambulation 2. Continue incentive spirometer use 3. Continue the fat diet 4. Continue antiemetics as needed 5. Continue pain control 6. If patient can tolerate diet and increase ambulation, patient may be cleared for discharge The impression and plan of care has been dictated as directed. Dr. Leo I performed a history and examination of this patient, discussed the same with the dictator. I agree with the dictator's note ,documented as a scribe. Any additional findings or plans will be noted. Objective - Vital Signs Vital signs: Vital Signs Temp 98.3 F 06/16/21 08:00 Pulse 62 06/16/21 08:00 Resp 16 06/16/21 08:00 BP 157/88 06/16/21 08:00 Pulse Ox 96 06/16/21 08:00 Intake & Output 06/15/21 06/16/21 06/16/21 18:59 06:59 18:59 Intake Total 1200 Output Total 5 Balance 1195 Weight 81.647 kg Intake: IV 1200 Output: Estimated Blood Loss 5 Other: Voiding Method Toilet Toilet # Voids 2 1 # Bowel Movements 0 0 - Labs CBC & Chem 7: 06/14/21 06:43 06/14/21 06:43
[2021-06-16 16:01] VITALS: BP 143/76; PULSE 79; TEMP 98.1
--- NOTE | 2021-06-16 16:24 | P.DS ---
Providers Date of admission: 06/13/21 13:39 Expected date of discharge: 06/16/21 Attending physician: Santiago Berg MD Final Diagnoses: Acute Pancreatitis, resolving Irregular 8 cm area with the right lobe of liver reported on gallbladder ultrasound Possible acute on chronic cholecystitis. 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 History of asthma and COPD Fibromyalgia Hypertension Degenerative joint disease Anxiety and depression Hospital course:This is a 60-year-old female status post colostomy reversal, presenting with right lower quadrant abdominal pain, with past medical history of recent extensive lysis of intra-abdominal and intrapelvic adhesions, low anterior resection with sigmoid colectomy, takedown and repair of enteric, Colovesical and colovaginal fistula with descending Colostomy reversal in March 2021. Patient reports since reversal surgery, she is having ongoing pain that is never relieved. Reports regular bowel movement every day, ongoing nausea, no emesis with eating irregardless of what she consumes. Denies diaphoresis chills or body aches. Denies alcohol consumption. Denies chest pain, palpitations or shortness of breath. Reports she has not followed up with Dr. Jones since surgery. Maintain on IV fluid hydration. afebrile, normal WBC. Hemoglobin 15.6, platelets 323, which is within normal limits, renal function stable. Amylase 113, lipase 763 on admission currently down to 49 and 198 with IV fluid hydration. UA negative, coronavirus not detected. ET of abdomen and pelvis reported postop changes at the level of the rectosigmoid, fluid-filled colonic loops. Gallbladder ultrasound reporting hypoechoic irregular area within the right lobe of the liver measuring 8 cm. 06/12/2021 maintain on IV fluid hydration. Positive bowel movement yesterday. Reports abdominal pain unchanged. Scheduled for HIDA scan. Denies chest pain, palpitations or shortness of breath. Denies nausea or vomiting. CRP less than 0.3, pro-calcitonin less than 0.02. Afebrile, vital signs stable, maintaining O2 sats in the in the mid to high 90s on room air. 06/15/2021 NPO, scheduled for acute cholecystectomy today. Reports no nausea vomiting. Recently medicated with morphine IV push, reporting minimal abdominal pain. Denies chest pain, palpitations or increasing shortness of breath. Afebrile, normal WBC. Renal function stable. Tolerating diet with no nausea vomiting or diarrhea. Denies abdominal pain. Denies chest pain, palpitations or shortness of breath. Denies lightheadedness, dizziness or focal deficits. Significant clinical improvement. Cleared by surgery for discharge. Patient will be discharged today, in a stable condition with guarded prognosis, pending she tolerates increased activity. Maintain aggressive pulmonary toileting with patient to continue with incentive spirometer at discharge as previously advised. The impression and plan of care has been dictated as directed. : I performed a history and examination of this patient, discussed the same with the dictator. I agree with the dictator's note ,documented as a scribe. Any additional findings or plans will be noted. Consults: 06/10/21 16:52 Consult Physician Urgent Consulting Provider: Candice Leo Consult Reason/Comments: abdominal pain/pancreatitis Do you want consulting provider notified?: Yes Primary care physician: Santiago Berg MD Patient Condition at Discharge: Stable Plan - Discharge Summary Discharge Rx Participant: Yes New Discharge Prescriptions: New Nicotine 14Mg/24Hr Patch [Habitrol] 1 patch TRANSDERM DAILY patch Continue polyethylene glycoL 3350 [Miralax] 17 gm PO DAILY Multivitamins, Thera [Multivitamin (formulary)] 1 tab PO DAILY Albuterol Inhaler [Ventolin Hfa Inhaler] 1 puff INHALATION RT-Q4H PRN PRN Reason: Shortness Of Breath Or Wheezing Loratadine [Claritin] 10 mg PO DAILY Acetaminophen Tab [Tylenol] 1,000 mg PO Q6H PRN PRN Reason: Pain Discharge Medication List Multivitamins, Thera [Multivitamin (formulary)] 1 tab PO DAILY 01/27/21 [History] Albuterol Inhaler [Ventolin Hfa Inhaler] 1 puff INHALATION RT-Q4H PRN 04/16/21 [History] Loratadine [Claritin] 10 mg PO DAILY 04/17/21 [History] Acetaminophen Tab [Tylenol] 1,000 mg PO Q6H PRN 06/10/21 [History] polyethylene glycoL 3350 [Miralax] 17 gm PO DAILY 06/10/21 [History] Nicotine 14Mg/24Hr Patch [Habitrol] 1 patch TRANSDERM DAILY patch 06/16/21 [Rx] Follow up Appointment(s)/Referral(s): Santiago Berg MD [Primary Care Provider] - 1 Week Candice Leo MD [STAFF PHYSICIAN] - 06/23/21 Patient Instructions/Handouts: Lysis of Abdominal Adhesions (DC), Laparoscopic Cholecystectomy (DC) Activity/Diet/Wound Care/Special Instructions: No lifting more than 10 pounds for at least 2 weeks May shower. No tub bathing or soaking for at least 2 weeks. Continue Low fat diet
== END 2021-06-16 17:19 | disposition home or self-care (01) | DRG 417 ==
LOC: EC 12:43 → 6NMEDSUR 16:51 → OBSVTOIN 06-13 13:39
PROVIDERS: ADMIT Family Medicine; ATTEND Family Medicine
PROC: 0DNW4ZZ Release Peritoneum, Percutaneous Endoscopic Approach (ICD-10-PCS; 2021-06-15)
PROC: 4A1BXSH Monitoring of Gastrointestinal Vascular Perfusion using Indocyanine Green Dye, External Approach (ICD-10-PCS; 2021-06-15)
PROC: 8E0W4CZ Robotic Assisted Procedure of Trunk Region, Percutaneous Endoscopic Approach (ICD-10-PCS; 2021-06-15)
PROC: 0FT44ZZ Resection of Gallbladder, Percutaneous Endoscopic Approach (ICD-10-PCS; principal; 2021-06-15 08:55)
DX: K81.2 Acute cholecystitis with chronic cholecystitis (principal); K85.90 Acute pancreatitis without necrosis or infection, unspecified; E78.5 Hyperlipidemia, unspecified; Z20.822 Contact with and (suspected) exposure to COVID-19; K76.89 Other specified diseases of liver; E83.51 Hypocalcemia; E87.6 Hypokalemia; J44.9 Chronic obstructive pulmonary disease, unspecified; F32.A Depression, unspecified; K66.0 Peritoneal adhesions (postprocedural) (postinfection); F41.9 Anxiety disorder, unspecified; G62.9 Polyneuropathy, unspecified; I10 Essential (primary) hypertension; F17.210 Nicotine dependence, cigarettes, uncomplicated; M19.90 Unspecified osteoarthritis, unspecified site; K82.8 Other specified diseases of gallbladder; M43.00 Spondylolysis, site unspecified; M41.9 Scoliosis, unspecified; M47.9 Spondylosis, unspecified; M79.7 Fibromyalgia; Z90.710 Acquired absence of both cervix and uterus; Z86.711 Personal history of pulmonary embolism; Z98.51 Tubal ligation status; Z86.79 Personal history of other diseases of the circulatory system
CPT/HCPCS: 36415; 74177; 76705; 78227; 80048; 80053; 81003; 82150; 83690; 84145; 85025; 85027; 86140; 87635; 88304; 96361; 96374; 99285

== ENCOUNTER 2021-06-25 15:09 | Observation (INO) | payer OTHER ==
[2021-06-25] MEDS ORDERED: ONDANSETRON 4 MG/2 ML VIAL IVP STA (19:02)
[2021-06-25] MEDS ORDERED: SODIUM CHLORIDE 0.9% 1,000 ML IV STA (19:02)
[2021-06-25] MEDS ORDERED: HYDROmorphone 0.5 MG/0.5 ML SYRINGE IVP STA (19:02)
[2021-06-25 19:37] LABS: Basophils # (A) 0.1 k/uL (0-0.2); Basophils % (A) 1 %; Eosinophils # (A) 0.3 k/uL (0-0.7); Eosinophils % (A) 3 %; HCT 45.2 % (34.0-46.0); HGB 15.2 gm/dL (11.4-16.0); Lymphocytes # (A) 3.7 k/uL (1.0-4.8); Lymphocytes % (A) 43 %; MCH 29.7 pg (25.0-35.0); MCHC 33.5 g/dL (31.0-37.0); MCV 88.8 fL (80.0-100.0); Mean Platelet Volume 6.8; Monocytes # (A) 0.5 k/uL (0-1.0); Monocytes % (A) 6 %; Neutrophils # (A) 3.9 k/uL (1.3-7.7); Neutrophils % (A) 45 %; Platelet Count 312 k/uL (150-450); RDW 13.2 % (11.5-15.5); WBC 8.7 k/uL (3.8-10.6)
[2021-06-25 19:40] LABS: Appearance,Urine Clear (Clear); Bilirubin,Urine Negative (Negative); Blood,Urine Negative (Negative); Color,Urine Light Yellow; Glucose,Urine (UA) Negative (Negative); Ketones,Urine Negative (Negative); Leukocyte Esterase,Urine Negative (Negative); Nitrite,Urine Negative (Negative); Protein,Urine Negative (Negative); Specific Gravity,Urine 1.014 (1.001-1.035); Urobilinogen,Urine <2.0 mg/dL (<2.0)
[2021-06-25 19:49] LABS: ALT 21 U/L (4-34); AST 28 U/L (14-36); African American GFR (CKD) >90 (>60 ml/min/1.73 sqM); Albumin 4.2 g/dL (3.5-5.0); Alkaline Phosphatase 67 U/L (38-126); Amylase 144 U/L (30-110); Anion Gap 8 mmol/L; Blood Urea Nitrogen 16 mg/dL (7-17); Calcium 9.8 mg/dL (8.4-10.2); Carbon Dioxide 26 mmol/L (22-30); Chloride 103 mmol/L (98-107); Glucose 88 mg/dL (74-99); Lipase 1694 U/L (23-300); Non-African American GFR(CKD) >90 (>60 ml/min/1.73 sqM); Potassium 4.1 mmol/L (3.5-5.1); Sodium 137 mmol/L (137-145); Total Bilirubin 0.3 mg/dL (0.2-1.3); Total Protein 7.6 g/dL (6.3-8.2)
--- NOTE | 2021-06-25 20:06 | ED ---
General Adult HPI - General Chief complaint: Abdominal Pain Stated complaint: Right side pain Time Seen by Provider: 06/25/21 18:26 Source: patient, RN notes reviewed Mode of arrival: ambulatory Limitations: no limitations - History of Present Illness Initial comments: 60-year-old female with a past medical history of pancreatitis, diverticulitis, or growth edema, hypertension, PE presents to the emergency room for a chief complaint of abdominal pain. Patient had a laparoscopic cholecystectomy about a week ago by Dr. Jones. Patient states over the past couple days she started to have worsening upper abdominal pain. Denies fevers or chills. Denies nausea vomiting diarrhea. Patient does have a history of pancreatitis.Patient has no other complaints at this time including shortness of breath, chest pain, nausea or vomiting, headache, or visual changes. - Related Data Home Medications Medication Instructions Recorded Confirmed Multivitamins, Thera [Multivitamin 1 tab PO DAILY 01/27/21 06/25/21 (formulary)] Albuterol Inhaler [Ventolin Hfa 1 puff INHALATION RT-Q4H PRN 04/16/21 06/25/21 Inhaler] Loratadine [Claritin] 10 mg PO DAILY 04/17/21 06/25/21 Acetaminophen Tab [Tylenol] 1,000 mg PO Q6H PRN 06/10/21 06/25/21 polyethylene glycoL 3350 [Miralax] 17 gm PO DAILY 06/10/21 06/25/21 Nicotine 14Mg/24Hr Patch [Habitrol] 1 patch TRANSDERM DAILY PRN 06/25/21 06/25/21 Allergies Allergy/AdvReac Type Severity Reaction Status Date / Time ibuprofen AdvReac Abdominal Verified 06/25/21 18:40 Pain Review of Systems ROS Statement: Those systems with pertinent positive or pertinent negative responses have been documented in the HPI. ROS Other: All systems not noted in ROS Statement are negative. Past Medical History Past Medical History: Asthma, COPD, Fibromyalgia, Hyperlipidemia, Hypertension, Musculoskeletal Disorder, Osteoarthritis (OA), Pulmonary Embolus (PE) Additional Past Medical History / Comment(s): CHRONIC DIVERTICULITIS. Pancreatitis, chronic pain, DDD, DJD, cervical/back pain/bilateral scoliosis, spondylosis, neuropathy bilat hands and feet, pulmonary embolism R lung, brain aneurysm being monitored. History of Any Multi-Drug Resistant Organisms: None Reported Past Surgical History: Bowel Resection, Cholecystectomy, Hysterectomy, Tubal Li gation Additional Past Surgical History / Comment(s): DECEMBER 2020 BOWEL RESECTION WITH COLOSTOMY. D&C, angiograms d/t cerebral aneurysm. Colostomy reversal Past Anesthesia/Blood Transfusion Reactions: No Reported Reaction Additional Past Anesthesia/Blood Transfusion Reaction / Comment(s): motion sick as a child Past Psychological History: Anxiety, Depression Smoking Status: Current every day smoker Past Alcohol Use History: None Reported Past Drug Use History: Marijuana - Past Family History Mother Family Medical History: Cancer, Coronary Artery Disease (CAD) Additional Family Medical History / Comment(s): Mother had uterine cancer. Sister(s) Family Medical History: Cancer, Neurologic Disorder Additional Family Medical History / Comment(s): parkinsonism; uterine, lung cancer. Brother(s) Family Medical History: Cancer Additional Family Medical History / Comment(s): Pt had 2 brothers with cancer - 1 leukemia. General Exam Limitations: no limitations General appearance: alert, in no apparent distress Head exam: Present: atraumatic Eye exam: Present: normal appearance, PERRL, EOMI. Absent: scleral icterus, conjunctival injection ENT exam: Present: normal exam, mucous membranes moist Neck exam: Present: normal inspection, full ROM. Absent: tenderness Respiratory exam: Present: normal lung sounds bilaterally. Absent: respiratory distress, wheezes Cardiovascular Exam: Present: regular rate, normal rhythm, normal heart sounds GI/Abdominal exam: Present: soft, tenderness (Mild generalized upper abdominal pain), normal bowel sounds. Absent: distended, guarding, rebound Neurological exam: Present: alert Course Vital Signs 06/25/21 06/25/21 15:24 18:43 Temperature 97.8 F 98.0 F Pulse Rate 96 79 Respiratory 20 18 Rate Blood Pressure 138/84 131/87 O2 Sat by Pulse 96 95 Oximetry Medical Decision Making - Medical Decision Making Vitals are stable. CBC CMP unremarkable. Lipase is 1700. Amylase 144. CT abdomen and pelvis unremarkable. Case discussed with Dr. Fernandez who is on-call for Dr. Leo given recent cholecystectomy and recommends admission to medicine with consult to Dr. Leo and GI. - Lab Data Result diagrams: 06/25/21 19:23 06/25/21 19:23 Lab Results 12/02/21 12/02/21 12/02/21 Range/Units 19:23 19:23 19:23 WBC 8.7 (3.8-10.6) k/uL RBC 5.10 (3.80-5.40) m/uL Hgb 15.2 (11.4-16.0) gm/dL Hct 45.2 (34.0-46.0) % MCV 88.8 (80.0-100.0) fL MCH 29.7 (25.0-35.0) pg MCHC 33.5 (31.0-37.0) g/dL RDW 13.2 (11.5-15.5) % Plt Count 312 (150-450) k/uL MPV 6.8 Neutrophils % 45 % Lymphocytes % 43 % Monocytes % 6 % Eosinophils % 3 % Basophils % 1 % Neutrophils # 3.9 (1.3-7.7) k/uL Lymphocytes # 3.7 (1.0-4.8) k/uL Monocytes # 0.5 (0-1.0) k/uL Eosinophils # 0.3 (0-0.7) k/uL Basophils # 0.1 (0-0.2) k/uL Sodium 137 (137-145) mmol/L Potassium 4.1 (3.5-5.1) mmol/L Chloride 103 (98-107) mmol/L Carbon Dioxide 26 (22-30) mmol/L Anion Gap 8 mmol/L BUN 16 (7-17) mg/dL Creatinine 0.57 (0.52-1.04) mg/dL Est GFR (CKD-EPI)AfAm >90 (>60 ml/min/1.73 sqM) Est GFR (CKD-EPI)NonAf >90 (>60 ml/min/1.73 sqM) Glucose 88 (74-99) mg/dL Calcium 9.8 (8.4-10.2) mg/dL Total Bilirubin 0.3 (0.2-1.3) mg/dL AST 28 (14-36) U/L ALT 21 (4-34) U/L Alkaline Phosphatase 67 (38-126) U/L Total Protein 7.6 (6.3-8.2) g/dL Albumin 4.2 (3.5-5.0) g/dL Amylase 144 H (30-110) U/L Lipase 1694 H (23-300) U/L Urine Color Light Yellow Urine Appearance Clear (Clear) Urine pH 5.0 (5.0-8.0) Ur Specific [place] 1.014 (1.001-1.035) Urine Protein Negative (Negative) Urine Glucose (UA) Negative (Negative) Urine Ketones Negative (Negative) Urine Blood Negative (Negative) Urine Nitrite Negative (Negative) Urine Bilirubin Negative (Negative) Urine Urobilinogen <2.0 (<2.0) mg/dL Ur Leukocyte Esterase Negative (Negative) Disposition Clinical Impression: Pancreatitis, Status post cholecystectomy Disposition: ADMITTED IP TO THIS HOSP Is patient prescribed a controlled substance at d/c from ED?: No Referrals: Santiago Berg MD [Primary Care Provider] - 1-2 days Time of Disposition: 22:03
--- NOTE | 2021-06-25 21:45 | CT ---
EXAMINATION TYPE: CT abdomen pelvis w con DATE OF EXAM: 06/25/2021 HISTORY: Rt side abdominal pain. Pt states viridiana sx 2 weeks ago. TECHNIQUE: Helical acquisition of images was performed from the lung bases through the pelvis.Automa finn exposure control for dose reduction was used. CT DLP: 1198.9 mGycm CONTRAST: Performed without Oral Contrast and with IV Contrast, patient injected with 100 mL of Isovu e 300. COMPARISON: 06/10/2020 FINDINGS: LUNG BASES: No significant abnormality is appreciated. LIVER/GB: No significant abnormality is appreciated. PANCREAS: No significant abnormality is seen. SPLEEN: No significant abnormality is seen. ADRENALS: No significant abnormality is seen. KIDNEYS: No significant abnormality is seen. FREE AIR: No free air is visualized. RETROPERITONEAL ADENOPATHY: None visualized REPRODUCTIVE ORGANS: No significant abnormality is seen URINARY BLADDER: No significant abnormality is seen. PELVIC ADENOPATHY: None visualized. OSSEOUS STRUCTURES: No significant abnormality is seen. BOWEL: No significant abnormality is seen. OTHER: No acute vascular findings. IMPRESSION: NO ACUTE CT PROCESS.
[2021-06-25] MEDS ORDERED: ONDANSETRON 4 MG/2 ML VIAL IVP PRN (22:04)
[2021-06-25] MEDS ORDERED: NALOXONE 0.4 MG/ML 1 ML VIAL IV PRN (22:04)
[2021-06-26] MEDS: SODIUM CHLORIDE 0.9% 1,000 ML IV SCH ×3 (00:09→16:15)
[2021-06-26] MEDS: HYDROmorphone 0.5 MG/0.5 ML SYRINGE IVP PRN ×5 (00:15→21:23)
[2021-06-26] MEDS ORDERED: NICOTINE 14MG/24HR PATCH TRANSDERM PRN (01:42)
--- NOTE | 2021-06-26 09:27 | US ---
EXAMINATION TYPE: US gallbladder DATE OF EXAM: 06/26/2021 COMPARISON: CT & US CLINICAL HISTORY: pancreatitis, abdominal pain. Pancreatitis, GB removed last month EXAM MEASUREMENTS: Liver Length: 14.3 cm CBD: 0.2 cm Right Kidney: 11.9 x 4.4 x 5.0 cm Pancreas: Obscured by bowel gas Liver: wnl Gallbladder: Surgically absent Evidence for sonographic Willard's sign: No CBD: wnl Right Kidney: wnl IMPRESSION: 1. Postcholecystectomy changes. 2. Previously noted hepatic area of concern is less well seen on today's exam. Follow-up MRI as recom mended.
[2021-06-26 10:46] LABS: Basophils # (A) 0.1 k/uL (0-0.2); Basophils % (A) 1 %; Eosinophils # (A) 0.2 k/uL (0-0.7); Eosinophils % (A) 3 %; HGB 14.2 gm/dL (11.4-16.0); Lymphocytes # (A) 3.1 k/uL (1.0-4.8); Lymphocytes % (A) 46 %; MCH 30.1 pg (25.0-35.0); MCHC 33.7 g/dL (31.0-37.0); MCV 89.4 fL (80.0-100.0); Mean Platelet Volume 6.7; Monocytes # (A) 0.5 k/uL (0-1.0); Monocytes % (A) 7 %; Neutrophils # (A) 2.6 k/uL (1.3-7.7); Neutrophils % (A) 40 %; Platelet Count 277 k/uL (150-450); RDW 13.2 % (11.5-15.5); WBC 6.6 k/uL (3.8-10.6)
[2021-06-26 11:03] LABS: ALT 19 U/L (4-34); AST 25 U/L (14-36); African American GFR (CKD) >90 (>60 ml/min/1.73 sqM); Albumin 3.5 g/dL (3.5-5.0); Alkaline Phosphatase 61 U/L (38-126); Amylase 62 U/L (30-110); Anion Gap 5 mmol/L; Blood Urea Nitrogen 11 mg/dL (7-17); Calcium 9.1 mg/dL (8.4-10.2); Carbon Dioxide 26 mmol/L (22-30); Chloride 108 mmol/L (98-107); Glucose 84 mg/dL (74-99); Lipase 187 U/L (23-300); Non-African American GFR(CKD) >90 (>60 ml/min/1.73 sqM); Potassium 4.6 mmol/L (3.5-5.1); Sodium 139 mmol/L (137-145); Total Bilirubin 0.5 mg/dL (0.2-1.3); Total Protein 6.5 g/dL (6.3-8.2)
--- NOTE | 2021-06-26 14:27 | P.CONS ---
History of Present Illness - Reason for Consult Consult date: 06/26/21 Pancreatitis Requesting physician: Christian Dorado - Chief Complaint Abdominal pain - History of Present Illness This is a 60-year-old white female who presented to the emergency department yesterday with complaints of what abdominal and decreased appetite. The patient has a long-standing history of pancreatitis for several years. She recently underwent a robotic-assisted laparoscopic lysis of adhesions and laparoscopic cholecystectomy for cholecystitis on 06/15/[address] Jones. She also has a history of colectomy for sigmoid diverticulitis with abscess and colovesical fistula diverticulitis.. Patient states she's had pain since she left the hospital after undergoing laparoscopic cholecystectomy. States that she has been trying to eat well, softer nongreasy nonfatty foods. On admission she was noted to have an elevated amylase and lipase consistent with acute pancreatitis. . Patient states she had nausea, no vomiting, has had some constipation since the procedure. She states that she is unsure of etiology of pancreatitis however states she does have a history of alcohol use for many many years. States she was a daily drinker of both beer and hard liquor, but quit drinking several years ago. Admitting labs WBC 8 hemoglobin 15, platelet count 312,000, total bilirubin 0.3, AST 28 ALT 21 alkaline phosphatase [address] of the abdomen shows no acute process. Abdominal Ultrasound with findings of postcholecystectomy changes. Previously noted hepatic area of concern is less well-seen on today's exam follow-up MRI is recommended. EBD within normal limits. Review of Systems REVIEW OF SYSTEMS: CARDIOPULMONARY: No chest pain or shortness of breath. Gastrointestinal: Right-sided abdominal pain. No nausea or vomiting. No hematemesis, coffee-ground emesis. No rectal bleeding, or melena. Chronic constipation. GENITOURINARY: No dysuria or hematuria. MUSCULOSKELETAL: Reports normal range of motion., Joint pain. SKIN: No rashes. No jaundice. ENDOCRINE: No chills, fevers. No excessive weight gain or loss. No polydipsia or polyuria. PSYCHIATRIC: Unremarkable. NEUROLOGY: No change in mental status. Denies dizziness, headache. ENT: Vision unremarkable. CONSTITUTIONAL: No recent weight loss. No fever, chills, night sweats. Past Medical History Past Medical History: Asthma, COPD, Fibromyalgia, Hyperlipidemia, Hypertension, Musculoskeletal Disorder, Osteoarthritis (OA), Pulmonary Embolus (PE) Additional Past Medical History / Comment(s): CHRONIC DIVERTICULITIS. Pancreatitis, chronic pain, DDD, DJD, cervical/back pain/bilateral scoliosis, spondylosis, neuropathy bilat hands and feet, pulmonary embolism R lung, brain aneurysm being monitored. History of Any Multi-Drug Resistant Organisms: None Reported Past Surgical History: Bowel Resection, Cholecystectomy, Hysterectomy, Tubal Ligation Additional Past Surgical History / Comment(s): DECEMBER 2020 BOWEL RESECTION WITH COLOSTOMY. D&C, angiograms d/t cerebral aneurysm. Colostomy reversal Past Anesthesia/Blood Transfusion Reactions: No Reported Reaction Additional Past Anesthesia/Blood Transfusion Reaction / Comm: motion sick as a child Past Psychological History: Anxiety, Depression Additional Psychological History / Comment(s): Pt lives with her son and his fiancee. Smoking Status: Current every day smoker Past Alcohol Use History: None Reported Additional Past Alcohol Use History / Comment(s): Pt started smoking in 1977, 1/2 ppd smoker, down to few cigarettes daily. She drank heavily in the past but has not drank alcohol since 2009. Past Drug Use History: Marijuana Additional Drug Use History / Comment(s): uses daily - Past Family History Mother Family Medical History: Cancer, Coronary Artery Disease (CAD) Additional Family Medical History / Comment(s): Mother had uterine cancer. Sister(s) Family Medical History: Cancer, Neurologic Disorder Additional Family Medical History / Comment(s): parkinsonism; uterine, lung cancer. Brother(s) Family Medical History: Cancer Additional Family Medical History / Comment(s): Pt had 2 brothers with cancer - 1 leukemia. Medications and Allergies Home Medications Medication Instructions Recorded Confirmed Type Multivitamins, Thera [Multivitamin 1 tab PO DAILY 01/27/21 06/25/21 History (formulary)] Albuterol Inhaler [Ventolin Hfa 1 puff INHALATION RT-Q4H PRN 04/16/21 06/25/21 History Inhaler] Loratadine [Claritin] 10 mg PO DAILY 04/17/21 06/25/21 History Acetaminophen Tab [Tylenol] 1,000 mg PO Q6H PRN 06/10/21 06/25/21 History polyethylene glycoL 3350 [Miralax] 17 gm PO DAILY 06/10/21 06/25/21 History Nicotine 14Mg/24Hr Patch [Habitrol] 1 patch TRANSDERM DAILY PRN 06/25/21 06/25/21 History Allergies Allergy/AdvReac Type Severity Reaction Status Date / Time ibuprofen AdvReac Abdominal Verified 06/25/21 18:40 Pain Physical Exam Vitals: Vital Signs Temp Pulse Pulse Resp BP BP Pulse Ox 06/26/21 08:17 97.6 F 72 16 111/73 92 L 06/26/21 04:45 98.1 F 76 18 106/70 99 06/26/21 02:30 72 18 06/25/21 23:22 98.4 F 72 18 128/67 99 06/25/21 18:43 98.0 F 79 18 131/87 95 06/25/21 15:24 97.8 F 96 20 138/84 96 Intake and Output 06/25/21 06/26/21 06/26/21 22:59 06:59 14:59 Intake Total 0 Balance 0 Intake: Oral 0 Other: Voiding Method Toilet # Voids 2 Weight 81.647 kg 81.647 kg General appearance: The patient is alert, oriented, appears in no acute distress. HET: Head is normocephalic and atraumatic. Conjunctiva pink. Sclera anicteric. Neck: Supple without lymphadenopathy. Trachea midline. Heart: S1 S2. Regular rate and rhythm. Lungs: Clear to auscultation. Abdomen: Soft, mild tenderness right lower quadrant, nondistended with bowel sounds. No guarding or rigidity. Skin: No rashes. No jaundice. Extremities: Normal skin color and turgor. No pedal edema. Neurological: No focal deficits. Alert and oriented x3. Results CBC & Chem 7: 06/26/21 10:04 06/26/21 10:04 Labs: Abnormal Lab Results - Last 24 Hours (Table) 06/25/21 Range/Units 19:23 Amylase 144 H (30-110) U/L Lipase 1694 H (23-300) U/L Comments: Reports reviewed as stated in HPI CT scan - abdomen: report reviewed US - abdomen: report reviewed Assessment and Plan (1) Pancreatitis Narrative/Plan: 60-year-old female with a past medical history of pancreatitis who recently underwent a robotic laproscopic cholecystectomy for cholecystitis. She also had lysis of adhesions at that time. Patient states she had continued abdominal pain after her surgery however felt like it was getting worse and she was having decreased appetite so came in for further evaluation. Noted on admission she had elevation in her amylase and lipase consistent with pancreatitis. The patient states she has a long-standing history of pancreatitis for several years and sure of etiology. Patient states however she does have a history of significant alcohol abuse for many years in the past however states she quit quite a few years ago. CT of the abdomen and pelvis was completed showing no acute abdomen with no CVAT dilation. Ultrasound of the abdomen also obtained CBD within normal limits as well as liver. She denies any Current Visit: Yes Status: Acute Code(s): K85.90 - ACUTE PANCREATITIS WITHOUT NECROSIS OR INFECTION, UNSP SNOMED Code(s): 25599956 (2) Abdominal pain Current Visit: No Status: Acute Code(s): R10.9 - UNSPECIFIED ABDOMINAL PAIN SNOMED Code(s): 66274603 (3) Status post cholecystectomy Current Visit: Yes Status: Acute Code(s): Z90.49 - ACQUIRED ABSENCE OF OTHER SPECIFIED PARTS OF DIGESTIVE TRACT SNOMED Code(s): 047659116 Plan: 1. Repeat CMP, amylase, lipase 2. Abdominal ultrasound ordered 3. NPO with ice chips, advance as tolerated 4. No plans on endoscopic evaluation Thank you for allowing us to participate in the care of the patient, the GI service will sign off, gastroenterology will not be available at the hospital this weekend and through next week. If further evaluation by gastroenterology is required the patient will need transfer as per the primary team's discretion. Dr. Milvia Vilchis I agree with the dictator's note, documented as a scribe by Lennie Jacskon.
--- NOTE | 2021-06-26 15:20 | P.GSCN ---
History of Present Illness Consult date: 06/26/21 History of present illness: CHIEF COMPLAINT: Abdominal pain HISTORY OF PRESENT ILLNESS: This is a 60-year-old female with a known history of pancreatitis and recent cholecystectomy and lysis of adhesions on 06/15/[address] Leo. Patient presents back to the hospital with complaints of epigastric abdominal pain and right sided abdominal pain for the last week. She describes the pain as a burning sensation. She does report that the pain gets to about a 9 out of 10. She has been having bowel movements and flatus. Denies any vomiting. She has been nauseated. Computed tomography scan abdomen and pelvis shows no acute process. Patient was found to have acute pancreatitis with elevated lipase. The lipase has normalized. There is a consult for CARMENCITA cruz. Patient denies any fever, chills or sweats. Denies any urinary symptoms. Patient states that she has not drink alcohol and 12 years. Denies any new medications. PAST MEDICAL HISTORY: See list. PAST SURGICAL HISTORY: See list. MEDICATIONS: See list. ALLERGIES: See list. SOCIAL HISTORY: No illicit drug use. REVIEW OF SYSTEMS: CONSTITUTIONAL: Denies fever or chills. HEENT: Denies blurred vision, vision changes, or eye pain. Denies hemoptysis ENDOCRINE: Denies heat or cold intolerance. CARDIOVASCULAR: Denies chest pain or pressure. RESPIRATORY: No shortness of breath. GASTROINTESTINAL: Please refer to HPI NEURO: Denies history of seizures. PSYCH: No depression or suicidal ideation HEMATOLOGIC: Denies bleeding disorders. LYMPHATIC: The patient denies any lumps and bumps around the neck. GENITOURINARY: Denies any blood in urine or increased urinary frequency. MUSCULOSKELETAL: Denies myalgias. Denies joint swelling. Denies decreased range of motion beyond patients baseline. SKIN: Denies pruitis. Denies rash. PHYSICAL EXAM: VITAL SIGNS: Reviewed GENERAL: Well-developed in no acute distress. HEENT: No sclera icterus. Extraocular movements grossly intact. Moist buccal mucosa. Head is atraumatic, normocephalic. Hears conversational speech. No nasal ana inage. NECK: Supple without lymphadenopathy. CHEST: Non-labored respirations and equal bilateral excursions. CARDIOVASCULAR: Palpable 2+ radial pulses. ABDOMEN: Soft. Nondistended. Epigastric tenderness and right sided abdominal tenderness MUSCULOSKELETAL: No clubbing or cyanosis. NEUROLOGIC: No focal or lateralizing signs. Cranial nerves II through XII grossly intact. PSYCH: Appropriate affect. Alert and oriented to person, place and time. SKIN: Well perfused. Good skin turgor. LABORATORY DATA: WBC is 6.6 Hgb 14.2 platelets 277 Sodium 139 potassium 4.6 BUN 11 creatinine 0.60 LFTs normal Lipase normalized from 1694-187 IMAGING: Computed tomography scan abdomen and pelvis with IV contrast shows no acute process Gallbladder ultrasound post cholecystectomy changes. Previously noted hepatic area of concern is less well seen on today's exam. Follow-up MRI as recommended ASSESSMENT: 1. Abdominal pain 2. Acute pancreatitis likely contributing to the epigastric abdominal pain 3. Right-sided abdominal pain likely secondary to scar tissue 4. Status post robotic laparoscopic cholecystectomy and lysis of adhesions 5. History of sigmoid diverticulitis with abscess and colovesical fistula status post Cummings's procedure and colostomy placement with colostomy reversal PLAN: -Advance diet to clear liquids -Patient was offered medication such as Neurontin or Lyrica to help with the burning pain from scar tissue. However, she refuses these medications. Reports that she has tried them in the past and they have made her ill. -Agree with GI consult -Continue supportive care -No plans for surgical intervention Thank you for this consultation Physician Child Care Leader note has been reviewed by physician. Signing provider agrees with the documented findings, assessment, and plan of care. Past Medical History Past Medical History: Asthma, COPD, Fibromyalgia, Hyperlipidemia, Hypertension, Musculoskeletal Disorder, Osteoarthritis (OA), Pulmonary Embolus (PE) Additional Past Medical History / Comment(s): CHRONIC DIVERTICULITIS. Pancreatitis, chronic pain, DDD, DJD, cervical/back pain/bilateral scoliosis, spondylosis, neuropathy bilat hands and feet, pulmonary embolism R lung, brain aneurysm being monitored. History of Any Multi-Drug Resistant Organisms: None Reported Past Surgical History: Bowel Resection, Cholecystectomy, Hysterectomy, Tubal Li gation Additional Past Surgical History / Comment(s): DECEMBER 2020 BOWEL RESECTION WITH COLOSTOMY. D&C, angiograms d/t cerebral aneurysm. Colostomy reversal Past Anesthesia/Blood Transfusion Reactions: No Reported Reaction Additional Past Anesthesia/Blood Transfusion Reaction / Comm: motion sick as a child Past Psychological History: Anxiety, Depression Additional Psychological History / Comment(s): Pt lives with her son and his fiancee. Smoking Status: Current every day smoker Past Alcohol Use History: None Reported Additional Past Alcohol Use History / Comment(s): Pt started smoking in 1977, 1/2 ppd smoker, down to few cigarettes daily. She drank heavily in the past but has not drank alcohol since 2009. Past Drug Use History: Marijuana Additional Drug Use History / Comment(s): uses daily - Past Family History Mother Family Medical History: Cancer, Coronary Artery Disease (CAD) Additional Family Medical History / Comment(s): Mother had uterine cancer. Sister(s) Family Medical History: Cancer, Neurologic Disorder Additional Family Medical History / Comment(s): parkinsonism; uterine, lung cancer. Brother(s) Family Medical History: Cancer Additional Family Medical History / Comment(s): Pt had 2 brothers with cancer - 1 leukemia. Medications and Allergies Home Medications Medication Instructions Recorded Confirmed Type Multivitamins, Thera [Multivitamin 1 tab PO DAILY 01/27/21 06/25/21 History (formulary)] Albuterol Inhaler [Ventolin Hfa 1 puff INHALATION RT-Q4H PRN 04/16/21 06/25/21 History Inhaler] Loratadine [Claritin] 10 mg PO DAILY 04/17/21 06/25/21 History Acetaminophen Tab [Tylenol] 1,000 mg PO Q6H PRN 06/10/21 06/25/21 History polyethylene glycoL 3350 [Miralax] 17 gm PO DAILY 06/10/21 06/25/21 History Nicotine 14Mg/24Hr Patch [Habitrol] 1 patch TRANSDERM DAILY PRN 06/25/21 06/25/21 History Allergies Allergy/AdvReac Type Severity Reaction Status Date / Time ibuprofen AdvReac Abdominal Verified 06/25/21 18:40 Pain Surgical - Exam Vital Signs Temp Pulse Resp BP Pulse Ox 97.8 F 96 20 138/84 96 06/25/21 15:24 06/25/21 15:24 06/25/21 15:24 06/25/21 15:24 06/25/21 15:24 Results - Labs 06/26/21 10:04 06/26/21 10:04 Abnormal Lab Results - Last 24 Hours (Table) 06/25/21 06/26/21 Range/Units 19:23 10:04 Chloride 108 H (98-107) mmol/L Amylase 144 H (30-110) U/L Lipase 1694 H (23-300) U/L Diabetes panel 06/25/21 06/26/21 Range/Units 19:23 10:04 Sodium 137 139 (137-145) mmol/L Potassium 4.1 4.6 (3.5-5.1) mmol/L Chloride 103 108 H (98-107) mmol/L Carbon Dioxide 26 26 (22-30) mmol/L BUN 16 11 (7-17) mg/dL Creatinine 0.57 0.60 (0.52-1.04) mg/dL Glucose 88 84 (74-99) mg/dL Calcium 9.8 9.1 (8.4-10.2) mg/dL AST 28 25 (14-36) U/L ALT 21 19 (4-34) U/L Alkaline Phosphatase 67 61 (38-126) U/L Total Protein 7.6 6.5 (6.3-8.2) g/dL Albumin 4.2 3.5 (3.5-5.0) g/dL Calcium panel 06/25/21 06/26/21 Range/Units 19:23 10:04 Calcium 9.8 9.1 (8.4-10.2) mg/dL Albumin 4.2 3.5 (3.5-5.0) g/dL Pituitary panel 06/25/21 06/26/21 Range/Units 19:23 10:04 Sodium 137 139 (137-145) mmol/L Potassium 4.1 4.6 (3.5-5.1) mmol/L Chloride 103 108 H (98-107) mmol/L Carbon Dioxide 26 26 (22-30) mmol/L BUN 16 11 (7-17) mg/dL Creatinine 0.57 0.60 (0.52-1.04) mg/dL Glucose 88 84 (74-99) mg/dL Calcium 9.8 9.1 (8.4-10.2) mg/dL Adrenal panel 06/25/21 06/26/21 Range/Units 19:23 10:04 Sodium 137 139 (137-145) mmol/L Potassium 4.1 4.6 (3.5-5.1) mmol/L Chloride 103 108 H (98-107) mmol/L Carbon Dioxide 26 26 (22-30) mmol/L BUN 16 11 (7-17) mg/dL Creatinine 0.57 0.60 (0.52-1.04) mg/dL Glucose 88 84 (74-99) mg/dL Calcium 9.8 9.1 (8.4-10.2) mg/dL Total Bilirubin 0.3 0.5 (0.2-1.3) mg/dL AST 28 25 (14-36) U/L ALT 21 19 (4-34) U/L Alkaline Phosphatase 67 61 (38-126) U/L Total Protein 7.6 6.5 (6.3-8.2) g/dL Albumin 4.2 3.5 (3.5-5.0) g/dL
[2021-06-26] MEDS: polyethylene glycoL 3350 17 GM POWD.PACK PO SCH (16:15)
--- NOTE | 2021-06-26 21:23 | P.HPIM ---
History of Present Illness H&P Date: 06/26/21 Chief Complaint: abdominal pain Kamryn Martin is a 60 yo F with PMH of pancreatitis, history of diverticulitis s/p colectomy and reanastamosis, recent cholecystectomy 1 month ago who presented to the ED complaining of abdominal pain. She states she has continued to deal with intermittent abdominal pain and nausea since leaving the hospital despite trying to follow a low fat diet. She denies fever, chills, diarrhea. On presentation vitals stable, labs significant for lipase 1700, amylase 160. CT abd/pelvis no acute process. Review of Systems All systems: negative Constitutional: Reports malaise, Denies chills, Denies fever Eyes: denies blurred vision, denies pain Ears, nose, mouth and throat: Denies headache, Denies sore throat Cardiovascular: Denies chest pain, Denies shortness of breath Respiratory: Denies cough Gastrointestinal: Reports abdominal pain, Denies diarrhea, Denies nausea, Denies vomiting Genitourinary: Denies dysuria, Denies hematuria Musculoskeletal: Denies myalgias Integumentary: Denies pruritus, Denies rash Neurological: Denies numbness, Denies weakness Psychiatric: Denies anxiety, Denies depression Endocrine: Denies fatigue, Denies weight change Past Medical History Past Medical History: Asthma, COPD, Fibromyalgia, Hyperlipidemia, Hypertension, Musculoskeletal Disorder, Osteoarthritis (OA), Pulmonary Embolus (PE) Additional Past Medical History / Comment(s): CHRONIC DIVERTICULITIS. Pancreatitis, chronic pain, DDD, DJD, cervical/back pain/bilateral scoliosis, spondylosis, neuropathy bilat hands and feet, pulmonary embolism R lung, brain aneurysm being monitored. History of Any Multi-Drug Resistant Organisms: None Reported Past Surgical History: Bowel Resection, Cholecystectomy, Hysterectomy, Tubal Ligation Additional Past Surgical History / Comment(s): DECEMBER 2020 BOWEL RESECTION WITH COLOSTOMY. D&C, angiograms d/t cerebral aneurysm. Colostomy reversal Past Anesthesia/Blood Transfusion Reactions: No Reported Reaction Additional Past Anesthesia/Blood Transfusion Reaction / Comment(s): motion sick as a child Past Psychological History: Anxiety, Depression Additional Psychological History / Comment(s): Pt lives with her son and his fiancee. Smoking Status: Current every day smoker Past Alcohol Use History: None Reported Additional Past Alcohol Use History / Comment(s): Pt started smoking in 1977, 1/2 ppd smoker, down to few cigarettes daily. She drank heavily in the past but has not drank alcohol since 2009. Past Drug Use History: Marijuana Additional Drug Use History / Comment(s): uses daily - Past Family History Mother Family Medical History: Cancer, Coronary Artery Disease (CAD) Additional Family Medical History / Comment(s): Mother had uterine cancer. Sister(s) Family Medical History: Cancer, Neurologic Disorder Additional Family Medical History / Comment(s): parkinsonism; uterine, lung cancer. Brother(s) Family Medical History: Cancer Additional Family Medical History / Comment(s): Pt had 2 brothers with cancer - 1 leukemia. Medications and Allergies Home Medications Medication Instructions Recorded Confirmed Type Multivitamins, Thera [Multivitamin 1 tab PO DAILY 01/27/21 06/25/21 History (formulary)] Albuterol Inhaler [Ventolin Hfa 1 puff INHALATION RT-Q4H PRN 04/16/21 06/25/21 History Inhaler] Loratadine [Claritin] 10 mg PO DAILY 04/17/21 06/25/21 History Acetaminophen Tab [Tylenol] 1,000 mg PO Q6H PRN 06/10/21 06/25/21 History polyethylene glycoL 3350 [Miralax] 17 gm PO DAILY 06/10/21 06/25/21 History Nicotine 14Mg/24Hr Patch [Habitrol] 1 patch TRANSDERM DAILY PRN 06/25/21 06/25/21 History Allergies Allergy/AdvReac Type Severity Reaction Status Date / Time ibuprofen AdvReac Abdominal Verified 06/25/21 18:40 Pain Physical Exam Vitals: Vital Signs Temp Pulse Resp BP Pulse Ox 06/26/21 15:00 97.6 F 69 18 132/84 95 06/26/21 08:17 97.6 F 72 16 111/73 92 L 06/26/21 08:00 16 06/26/21 04:45 98.1 F 76 18 106/70 99 06/26/21 02:30 72 18 06/25/21 23:22 98.4 F 72 18 128/67 99 Intake and Output 06/26/21 06/26/21 06/26/21 06:59 14:59 22:59 Intake Total 0 Balance 0 Intake: Oral 0 Other: Voiding Method Toilet Toilet # Voids 2 2 Weight 81.647 kg General: well nourished, well developed, NAD. Vitals reviewed Eyes: PERRL, EOMI, conjunctiva normal HENT: normocephalic, mucus membranes moist Neck: supple, no JVD Lungs: normal respiratory effort, no wheezes or rales CV: Regular rate and rhythm, no murmur. Peripheral pulses 2+ Abdomen: soft, nondistended, no organomegaly. Generalized tenderness Lymph: no cervical or axillary LAD Skin: warm and dry. Neuro: A&Ox3, normal mood and affect Results CBC & Chem 7: 06/26/21 10:04 06/26/21 10:04 Labs: Abnormal Lab Results - Last 24 Hours (Table) 06/26/21 Range/Units 10:04 Chloride 108 H (98-107) mmol/L Thrombosis Risk Factor Assmnt - Choose All That Apply Each Factor Represents 1 point: Age 41-60 years Thrombosis Risk Factor Assessment Total Risk Factor Score: 1 Thrombosis Risk Factor Assessment Level: Low Risk Assessment and Plan Plan: 1. Abdominal pain secondary to acute pancreatitis. Surgery and GI consult, c ontinue IV fluids and pain control, NPO with sips.
[2021-06-27] MEDS: SODIUM CHLORIDE 0.9% 1,000 ML IV SCH ×2 (02:12→05:35)
[2021-06-27] MEDS: HYDROmorphone 0.5 MG/0.5 ML SYRINGE IVP PRN (04:26)
[2021-06-27] MEDS: polyethylene glycoL 3350 17 GM POWD.PACK PO SCH (09:02)
--- NOTE | 2021-06-27 11:02 | P.PN ---
Progress Note - Text Progress Note Date: 06/27/21 Patient still has complaints of abdominal pain. Her amylase and lipase have returned back to normal. She is tolerating clear liquid diet. On exam vital signs are stable. Abdomen soft. History of chronic hepatitis. Recommend keeping the patient on clear liquid diet until her pain is improved.
[2021-06-27 14:23] VITALS: BP 143/93; PULSE 70; RESP 18; TEMP 97.6
--- NOTE | 2021-07-16 18:56 | P.DS ---
Providers Date of admission: 06/25/21 22:23 Expected date of discharge: 06/27/21 Attending physician: Santiago Berg MD Consults: 06/25/21 22:04 Consult Physician Routine Consulting Provider: Candice Leo Consult Reason/Comments: pancreatitis Do you want consulting provider notified?: Yes 06/25/21 22:05 Consult Physician Routine Consulting Provider: Julia Vilchis Consult Reason/Comments: pancreatitis Do you want consulting provider notified?: Yes Primary care physician: Santiago Berg MD Hospital Course: Kamryn Martin is a 60 yo F with PMH of pancreatitis, history of diverticulitis s/p colectomy and reanastamosis, recent cholecystectomy 1 month ago who presented to the ED complaining of abdominal pain. She states she has continued to deal with intermittent abdominal pain and nausea since leaving the hospital despite trying to follow a low fat diet. She denies fever, chills, diarrhea. On presentation vitals stable, labs significant for lipase 1700, amylase 160. CT abd/pelvis no acute process. Pt admitted to medicine and seen by Surgery and GI. She was recommended bowel rest and pain relief. Her pain subsided with clear liquid diet and her diet was admvanced. Pt discharged in stable condition and recommended to follow up with her PCP. Patient Condition at Discharge: Stable Plan - Discharge Summary New Discharge Prescriptions: No Action polyethylene glycoL 3350 [Miralax] 17 gm PO DAILY Nicotine 14Mg/24Hr Patch [Habitrol] 1 patch TRANSDERM DAILY PRN PRN Reason: Nicotine Cravings Multivitamins, Thera [Multivitamin (formulary)] 1 tab PO DAILY Albuterol Inhaler [Ventolin Hfa Inhaler] 1 puff INHALATION RT-Q4H PRN PRN Reason: Shortness Of Breath Or Wheezing Loratadine [Claritin] 10 mg PO DAILY Acetaminophen Tab [Tylenol] 1,000 mg PO Q6H PRN PRN Reason: Pain Discharge Medication List Multivitamins, Thera [Multivitamin (formulary)] 1 tab PO DAILY 01/27/21 [History] Albuterol Inhaler [Ventolin Hfa Inhaler] 1 puff INHALATION RT-Q4H PRN 04/16/21 [History] Loratadine [Claritin] 10 mg PO DAILY 04/17/21 [History] Acetaminophen Tab [Tylenol] 1,000 mg PO Q6H PRN 06/10/21 [History] polyethylene glycoL 3350 [Miralax] 17 gm PO DAILY 06/10/21 [History] Nicotine 14Mg/24Hr Patch [Habitrol] 1 patch TRANSDERM DAILY PRN 06/25/21 [History] Follow up Appointment(s)/Referral(s): Santiago Berg MD [Primary Care Provider] - 1-2 days Discharge Disposition: Left Against Medical Advice
== END 2021-06-27 16:25 | disposition left against medical advice (07) ==
LOC: EC 15:09 → 1SOBS 22:23 → INTOOBSV 22:23 → 1SOBS 23:32 → 6PED 06-27 13:23 → UNDODISIN 06-27 16:25
PROVIDERS: ADMIT Family Medicine; ATTEND Family Medicine
DX: K85.90 Acute pancreatitis without necrosis or infection, unspecified (principal); J44.9 Chronic obstructive pulmonary disease, unspecified; M79.7 Fibromyalgia; E78.5 Hyperlipidemia, unspecified; I10 Essential (primary) hypertension; G62.9 Polyneuropathy, unspecified; I67.1 Cerebral aneurysm, nonruptured; K59.09 Other constipation; K73.9 Chronic hepatitis, unspecified; M19.90 Unspecified osteoarthritis, unspecified site; M47.9 Spondylosis, unspecified; M41.9 Scoliosis, unspecified; G89.29 Other chronic pain; M54.2 Cervicalgia; M54.9 Dorsalgia, unspecified; F41.9 Anxiety disorder, unspecified; F32.A Depression, unspecified; F17.210 Nicotine dependence, cigarettes, uncomplicated; Z20.822 Contact with and (suspected) exposure to COVID-19; Z79.899 Other long term (current) drug therapy; Z88.6 Allergy status to analgesic agent; Z86.711 Personal history of pulmonary embolism; Z90.49 Acquired absence of other specified parts of digestive tract; Z90.710 Acquired absence of both cervix and uterus; Z98.51 Tubal ligation status; Z87.19 Personal history of other diseases of the digestive system; Z98.890 Other specified postprocedural states; Z80.1 Family history of malignant neoplasm of trachea, bronchus and lung; Z80.49 Family history of malignant neoplasm of other genital organs; Z80.6 Family history of leukemia; Z82.49 Family history of ischemic heart disease and other diseases of the circulatory system; Z82.0 Family history of epilepsy and other diseases of the nervous system
CPT/HCPCS: 96361 ×3; 96376 ×2; 96374; 96375; 99285; 36415; 80053 ×2; 82150 ×2; 83690 ×2; 85025 ×2; 81003; 87635; 76705; 74177; G0378 ×4; J2405 ×2; J1170 ×3; Q9967

== ENCOUNTER 2022-01-27 13:47 | Observation (INO) | payer OTHER ==
--- NOTE | 2022-01-27 15:09 | ED ---
General Adult HPI - General Chief complaint: Upper Respiratory Infection Stated complaint: Chest Congestion Time Seen by Provider: 01/27/22 14:56 Source: patient, RN notes reviewed Mode of arrival: ambulatory Limitations: no limitations - History of Present Illness Initial comments: Patient is a pleasant 61-year-old female presenting to the emergency Department with upper respiratory symptoms. Patient has had symptoms for several months now. Patient does have cough. Occasional yellow sputum. Patient has congestion. No fevers. Patient has had recent illnesses associated with close contact with a young family member. Patient has had chronic abdominal pain for the past couple of years. Patient has had previous surgeries for this. - Related Data Home Medications Medication Instructions Recorded Confirmed Multivitamins, Thera [Multivitamin 1 tab PO DAILY 01/27/21 01/27/22 (formulary)] Loratadine [Claritin] 10 mg PO DAILY 04/17/21 01/27/22 Docusate [Colace] 100 mg PO DAILY 01/27/22 01/27/22 Allergies Allergy/AdvReac Type Severity Reaction Status Date / Time ibuprofen AdvReac Abdominal Verified 01/27/22 16:48 Pain Review of Systems ROS Statement: Those systems with pertinent positive or pertinent negative responses have been documented in the HPI. ROS Other: All systems not noted in ROS Statement are negative. Constitutional: Denies: fever Eyes: Denies: eye pain ENT: Reports: congestion Respiratory: Reports: cough Cardiovascular: Denies: chest pain Endocrine: Denies: fatigue Gastrointestinal: Reports: as per HPI, abdominal pain Genitourinary: Denies: dysuria Musculoskeletal: Denies: back pain Skin: Denies: rash Neurological: Denies: weakness Past Medical History Past Medical History: Asthma, COPD, Fibromyalgia, Hyperlipidemia, Hypertension, Musculoskeletal Disorder, Osteoarthritis (OA), Pulmonary Embolus (PE) Additional Past Medical History / Comment(s): CHRONIC DIVERTICULITIS. Pancreatitis, chronic pain, DDD, DJD, cervical/back pain/bilateral scoliosis, spondylosis, neuropathy bilat hands and feet, pulmonary embolism R lung, brain aneurysm being monitored. History of Any Multi-Drug Resistant Organisms: None Reported Past Surgical History: Bowel Resection, Cholecystectomy, Hysterectomy, Tubal Ligation Additional Past Surgical History / Comment(s): DECEMBER 2020 BOWEL RESECTION WITH COLOSTOMY. D&C, angiograms d/t cerebral aneurysm. Colostomy reversal Past Anesthesia/Blood Transfusion Reactions: No Reported Reaction Additional Past Anesthesia/Blood Transfusion Reaction / Comment(s): motion sick as a child Past Psychological History: Anxiety, Depression Smoking Status: Current every day smoker Past Alcohol Use History: None Reported Past Drug Use History: Marijuana - Past Family History Mother Family Medical History: Cancer, Coronary Artery Disease (CAD) Additional Family Medical History / Comment(s): Mother had uterine cancer. Sister(s) Family Medical History: Cancer, Neurologic Disorder Additional Family Medical History / Comment(s): parkinsonism; uterine, lung cancer. Brother(s) Family Medical History: Cancer Additional Family Medical History / Comment(s): Pt had 2 brothers with cancer - 1 leukemia. General Exam Limitations: no limitations General appearance: alert, in no apparent distress Head exam: Present: normocephalic Eye exam: Present: normal appearance Neck exam: Present: normal inspection Respiratory exam: Present: normal lung sounds bilaterally Cardiovascular Exam: Present: regular rate, normal rhythm GI/Abdominal exam: Present: soft, tenderness (Mild diffuse tenderness). Absent: distended Extremities exam: Present: normal inspection Neurological exam: Present: alert Psychiatric exam: Present: normal affect, normal mood Skin exam: Present: normal color Course Vital Signs 01/27/22 13:52 Temperature 98.2 F Pulse Rate 87 Respiratory 16 Rate Blood Pressure 142/83 O2 Sat by Pulse 95 Oximetry Medical Decision Making - Medical Decision Making Patient reevaluated and still complaining of pain. Patient does have elevated lipase. Case discussed with Dr. Kim, who will admit with consult with Dr. Jones. - Lab Data Result diagrams: 01/27/22 15:19 01/27/22 15:19 Lab Results 01/27/22 01/27/22 01/27/22 Range/Units 14:32 15:16 15:16 WBC (3.8-10.6) k/uL RBC (3.80-5.40) m/uL Hgb (11.4-16.0) gm/dL Hct (34.0-46.0) % MCV (80.0-100.0) fL MCH (25.0-35.0) pg MCHC (31.0-37.0) g/dL RDW (11.5-15.5) % Plt Count (150-450) k/uL MPV Neutrophils % % Lymphocytes % % Monocytes % % Eosinophils % % Basophils % % Neutrophils # (1.3-7.7) k/uL Lymphocytes # (1.0-4.8) k/uL Monocytes # (0-1.0) k/uL Eosinophils # (0-0.7) k/uL Basophils # (0-0.2) k/uL PT (9.0-12.0) sec INR (<1.2) APTT (22.0-30.0) sec Sodium (137-145) mmol/L Potassium (3.5-5.1) mmol/L Chloride (98-107) mmol/L Carbon Dioxide (22-30) mmol/L Anion Gap mmol/L BUN (7-17) mg/dL Creatinine (0.52-1.04) mg/dL Est GFR (CKD-EPI)AfAm (>60 ml/min/1.73 sqM) Est GFR (CKD-EPI)NonAf (>60 ml/min/1.73 sqM) Glucose (74-99) mg/dL Calcium (8.4-10.2) mg/dL Total Bilirubin (0.2-1.3) mg/dL AST (14-36) U/L ALT (4-34) U/L Alkaline Phosphatase (38-126) U/L Total Protein (6.3-8.2) g/dL Albumin (3.5-5.0) g/dL Amylase (30-110) U/L Lipase (23-300) U/L Urine Color Light Yellow Urine Appearance Clear (Clear) Urine pH 5.0 (5.0-8.0) Ur Specific [place] 1.005 (1.001-1.035) Urine Protein Negative (Negative) Urine Glucose (UA) Negative (Negative) Urine Ketones Negative (Negative) Urine Blood Negative (Negative) Urine Nitrite Negative (Negative) Urine Bilirubin Negative (Negative) Urine Urobilinogen <2.0 (<2.0) mg/dL Ur Leukocyte Esterase Negative (Negative) Coronavirus (PCR) Not Detected (Not Detectd) Influenza Type A RNA Not Detected (Not Detectd) Influenza Type B (PCR) Not Detected (Not Detectd) 01/27/22 01/27/22 01/27/22 Range/Units 15:19 15:19 15:19 WBC 8.9 (3.8-10.6) k/uL RBC 4.83 (3.80-5.40) m/uL Hgb 15.0 (11.4-16.0) gm/dL Hct 44.5 (34.0-46.0) % MCV 92.2 (80.0-100.0) fL MCH 31.0 (25.0-35.0) pg MCHC 33.6 (31.0-37.0) g/dL RDW 12.9 (11.5-15.5) % Plt Count 271 (150-450) k/uL MPV 6.9 Neutrophils % 53 % Lymphocytes % 35 % Monocytes % 6 % Eosinophils % 3 % Basophils % 1 % Neutrophils # 4.7 (1.3-7.7) k/uL Lymphocytes # 3.1 (1.0-4.8) k/uL Monocytes # 0.5 (0-1.0) k/uL Eosinophils # 0.3 (0-0.7) k/uL Basophils # 0.1 (0-0.2) k/uL PT 10.0 (9.0-12.0) sec INR 0.9 (<1.2) APTT 23.1 (22.0-30.0) sec Sodium 139 (137-145) mmol/L Potassium 3.9 (3.5-5.1) mmol/L Chloride 109 H (98-107) mmol/L Carbon Dioxide 25 (22-30) mmol/L Anion Gap 5 mmol/L BUN 8 (7-17) mg/dL Creatinine 0.48 L (0.52-1.04) mg/dL Est GFR (CKD-EPI)AfAm >90 (>60 ml/min/1.73 sqM) Est GFR (CKD-EPI)NonAf >90 (>60 ml/min/1.73 sqM) Glucose 76 (74-99) mg/dL Calcium 9.1 (8.4-10.2) mg/dL Total Bilirubin 0.4 (0.2-1.3) mg/dL AST 24 (14-36) U/L ALT 14 (4-34) U/L Alkaline Phosphatase 64 (38-126) U/L Total Protein 7.2 (6.3-8.2) g/dL Albumin 4.1 (3.5-5.0) g/dL Amylase 147 H (30-110) U/L Lipase 1779 H (23-300) U/L Urine Color Urine Appearance (Clear) Urine pH (5.0-8.0) Ur Specific [place] (1.001-1.035) Urine Protein (Negative) Urine Glucose (UA) (Negative) Urine Ketones (Negative) Urine Blood (Negative) Urine Nitrite (Negative) Urine Bilirubin (Negative) Urine Urobilinogen (<2.0) mg/dL Ur Leukocyte Esterase (Negative) Coronavirus (PCR) (Not Detectd) Influenza Type A RNA (Not Detectd) Influenza Type B (PCR) (Not Detectd) - Radiology Data Radiology results: report reviewed (Computed tomography scan shows no acute intra-abdominal process.), image reviewed (Chest x-ray: Correlate for bronchitis or reactive airway disease/scarring or atelectasis.) Disposition Clinical Impression: Acute pancreatitis Disposition: ADMITTED IP TO THIS HOSP Is patient prescribed a controlled substance at d/c from ED?: No Referrals: Santiago Berg MD [Primary Care Provider] - 1-2 days Time of Disposition: 17:04
[2022-01-27] MEDS ORDERED: MORPHINE SULFATE 4 MG/ML SYRINGE IV STA (15:16)
[2022-01-27] MEDS ORDERED: SODIUM CHLORIDE 0.9% 1,000 ML IV STA (15:16)
[2022-01-27 15:25] LABS: Appearance,Urine Clear (Clear); Bilirubin,Urine Negative (Negative); Blood,Urine Negative (Negative); Color,Urine Light Yellow; Glucose,Urine (UA) Negative (Negative); Ketones,Urine Negative (Negative); Leukocyte Esterase,Urine Negative (Negative); Nitrite,Urine Negative (Negative); Protein,Urine Negative (Negative); Specific Gravity,Urine 1.005 (1.001-1.035); Urobilinogen,Urine <2.0 mg/dL (<2.0)
[2022-01-27 15:31] LABS: Basophils # (A) 0.1 k/uL (0-0.2); Basophils % (A) 1 %; Eosinophils # (A) 0.3 k/uL (0-0.7); Eosinophils % (A) 3 %; HCT 44.5 % (34.0-46.0); Lymphocytes # (A) 3.1 k/uL (1.0-4.8); Lymphocytes % (A) 35 %; MCHC 33.6 g/dL (31.0-37.0); MCV 92.2 fL (80.0-100.0); Mean Platelet Volume 6.9; Monocytes # (A) 0.5 k/uL (0-1.0); Monocytes % (A) 6 %; Neutrophils # (A) 4.7 k/uL (1.3-7.7); Neutrophils % (A) 53 %; Platelet Count 271 k/uL (150-450); RBC 4.83 m/uL (3.80-5.40); RDW 12.9 % (11.5-15.5); WBC 8.9 k/uL (3.8-10.6)
[2022-01-27 15:39] LABS: INR 0.9 (<1.2); Partial Thromboplastin Time 23.1 sec (22.0-30.0)
[2022-01-27 15:51] LABS: ALT 14 U/L (4-34); AST 24 U/L (14-36); African American GFR (CKD) >90 (>60 ml/min/1.73 sqM); Albumin 4.1 g/dL (3.5-5.0); Alkaline Phosphatase 64 U/L (38-126); Amylase 147 U/L (30-110); Anion Gap 5 mmol/L; Blood Urea Nitrogen 8 mg/dL (7-17); Calcium 9.1 mg/dL (8.4-10.2); Carbon Dioxide 25 mmol/L (22-30); Chloride 109 mmol/L (98-107); Glucose 76 mg/dL (74-99); Lipase 1779 U/L (23-300); Non-African American GFR(CKD) >90 (>60 ml/min/1.73 sqM); Potassium 3.9 mmol/L (3.5-5.1); Sodium 139 mmol/L (137-145); Total Bilirubin 0.4 mg/dL (0.2-1.3); Total Protein 7.2 g/dL (6.3-8.2)
--- NOTE | 2022-01-27 16:00 | XR ---
EXAMINATION TYPE: XR chest 2V DATE OF EXAM: 01/27/2022 COMPARISON: Chest x-ray 08/08/2018, CT 06/25/2021 HISTORY: Cough and congestion TECHNIQUE: Frontal and lateral views of the chest are obtained. 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 There is no focal air space opacity, pleural effusion, or pneumothorax seen. The cardiac silhouet te size is within normal limits. Bronchial wall thickening is suspected. The osseous structures are intact. IMPRESSION: Correlate for bronchitis or reactive airways disease. There is likely some basilar scarr ing or possibly atelectasis, follow-up as indicated.
--- NOTE | 2022-01-27 16:12 | CT ---
EXAMINATION TYPE: CT abdomen pelvis w con CT DLP: 1341.3 mGycm, Automated exposure control for dose reduction was used. DATE OF EXAM: 01/27/2022 3:55 PM COMPARISON: CT abdomen pelvis most recent from 06/24/2021. CLINICAL INDICATION:Female, 61 years old with history of abdominal pain. TECHNIQUE: Standard CT of the abdomen and pelvis following the administration of 100 cc of Isovue 3 00 IV contrast material. Coronal and sagittal reformats were performed. FINDINGS: LOWER CHEST: Moderate to severe coronary artery atherosclerosis. ABDOMEN LIVER: Unremarkable GALLBLADDER AND BILE DUCTS: Gallbladder is surgically absent with mild intrahepatic and extra hepatic biliary dilatation likely physiologic and a postcholecystectomy change. No evidence of choledocholit hiasis. PANCREAS: Anatomic variant anatomy to the main pancreatic duct. SPLEEN: Unremarkable. ADRENAL GLANDS: Unremarkable. KIDNEYS AND URETERS: No evidence of hydronephrosis or renal calculus. The ureters are unremarkable. PELVIS BLADDER: Unremarkable REPRODUCTIVE: The uterus is surgically absent. ABDOMEN & PELVIS STOMACH AND BOWEL: No evidence of bowel obstruction. Appendix is normal. Postsurgical changes to the colon. Fluid is seen throughout the descending and transverse colon. PERITONEUM: No evidence of pneumoperitoneum or free fluid. VASCULATURE: Moderate atherosclerotic calcifications are present throughout the abdominal aorta and i ts branches. No evidence of aortic aneurysm. MUSCULOSKELETAL: No acute osseous abnormalities. Multilevel disc degeneration changes most pronounced at L3-L4. LYMPH NODES: No gross evidence for lymphadenopathy. SOFT TISSUE/ABDOMINAL WALL: Postsurgical changes to the anterior abdominal wall. IMPRESSION: 1. No evidence of acute intra-abdominal process. 2. Moderate to severe coronary artery atherosclerosis. 3. Fluid within the colon correlate for diarrhea.
[2022-01-27] MEDS ORDERED: HYDROmorphone 1 MG/ML 1 ML SYRINGE IVP PRN (17:04)
[2022-01-27] MEDS ORDERED: NALOXONE 0.4 MG/ML 1 ML VIAL IV PRN (17:04)
[2022-01-27] MEDS: PANTOPRAZOLE 40 MG/10 ML VIAL IV SCH (17:50)
[2022-01-27] MEDS: SODIUM CHLORIDE 0.9% 1,000 ML IV SCH (17:51)
[2022-01-27] MEDS: HYDROmorphone 0.5 MG/0.5 ML SYRINGE IVP PRN (22:41)
[2022-01-28] MEDS: SODIUM CHLORIDE 0.9% 1,000 ML IV SCH ×3 (00:25→17:44)
[2022-01-28] MEDS: HYDROmorphone 0.5 MG/0.5 ML SYRINGE IVP PRN (05:40)
[2022-01-28] MEDS: PANTOPRAZOLE 40 MG/10 ML VIAL IV SCH (08:29)
[2022-01-28] MEDS: LORATADINE 10 MG TAB PO SCH (08:33)
[2022-01-28] MEDS: MULTIVITAMINS, THERA 1 EACH TAB PO SCH (08:34)
[2022-01-28] MEDS: DOCUSATE 100 MG CAP PO SCH (09:35)
[2022-01-28] MEDS: HYDROcodone/APAP 5-325MG 1 EACH TAB PO PRN ×2 (10:05→18:25)
[2022-01-28] MEDS: polyethylene glycoL 3350 17 GM POWD.PACK PO SCH (10:05)
[2022-01-28 10:08] LABS: Basophils # (A) 0.05 X 10*3/uL (0.00-0.10); Basophils % (A) 0.7 %; Eosinophils # (A) 0.29 X 10*3/uL (0.04-0.35); Eosinophils % (A) 4.3 %; HCT 45.8 % (37.2-46.3); HGB 14.9 g/dL (12.0-15.0); Immature Grans, Automated 0.3 %; Lymphocytes # (A) 3.32 X 10*3/uL (0.90-5.00); Lymphocytes % (A) 49.8 %; MCH 29.9 pg (27.0-32.0); MCHC 32.5 g/dL (32.0-37.0); MCV 91.8 fL (80.0-97.0); Mean Platelet Volume 9.8 fL (9.5-12.2); Monocytes # (A) 0.59 X 10*3/uL (0.20-1.00); Monocytes % (A) 8.8 %; NRBC Per 100 WBC 0 /100 WBCS (0.0-0.0); Neutrophils % (A) 36.1 %; Platelet Count 299 X 10*3/uL (140-440); RBC 4.99 X 10*6/uL (4.10-5.20); RDW 13.5 % (11.5-14.5); WBC 6.67 X 10*3/uL (4.50-10.00)
[2022-01-28] MEDS ORDERED: ONDANSETRON 4 MG/2 ML VIAL IVP PRN (10:20)
[2022-01-28] MEDS ORDERED: METOCLOPRAMIDE 5 MG/ML 2 ML VIAL IVP PRN (10:20)
[2022-01-28 10:33] LABS: African American GFR (CKD) 121.9 (60.0-200.0); Albumin/Globulin Ratio 1.67 (1.60-3.17); Anion Gap 13.4 mmol/L (10.00-18.00); BUN/Creat Ratio 13.4 Ratio (12.00-20.00); Blood Urea Nitrogen 6.7 mg/dL (9.0-27.0); Calcium 9.2 mg/dL (8.7-10.3); Carbon Dioxide 23.6 mmol/L (20.0-27.5); Globulin 2.4 g/dL (1.6-3.3); Non-African American GFR(CKD) 105.2 (60.0-200.0); Potassium 3.8 mmol/L (3.5-5.5); Total Bilirubin 0.6 mg/dL (0.30-1.20); Total Protein 6.4 g/dL (6.2-8.2)
--- NOTE | 2022-01-28 13:09 | P.GSCN ---
History of Present Illness Consult date: 01/28/22 History of present illness: CHIEF COMPLAINT: Abdominal pain HISTORY OF PRESENT ILLNESS: The patient is a 61 year old female status post colostomy reversal for diverticulitis with colo-vesicle fistula, cholecystectomy over 8-10 months ago. She reports having ongoing pulling sensation along her left lower quadrant incision from her past ostomy site. She has pre-existing history of peritoneal adhesions due to multiple abdominal surgeries. Due to severity of pain, patient presented to the hospital. Laboratory findings chemistries are consistent with elevated lipase over 1400 for pancreatitis. Patient has past history of elevated lipase and pancreatitis. Denies any alcohol use. She denies any new medications in the past 1-2 months. Gen. surgeons consulted for her abdominal pain. PAST MEDICAL HISTORY: See list and reviewed PAST SURGICAL HISTORY: See list and reviewed MEDICATIONS: See list and reviewed ALLERGIES: See list and reviewed SOCIAL HISTORY: See list and reviewed FAMILY HISTORY: See list and reviewed REVIEW OF ORGAN SYSTEMS: CONSTITUTIONAL: No fevers or chills. Has weight gain in the past 9 months. EYES: Denies any trouble with vision. Wears glasses. HEENT: No difficulties with hearing. No nosebleeds. RESPIRATORY: Denies recent pneumonia. Past history of pulmonary embolism. Has tobacco abuse disorder. Has asthma and chronic obstructive pulmonary disease CARDIOVASCULAR: Denies any chest pain, palpitations, or recent heart attacks. Has hyperlipidemia. Has hypertensive heart disease. GASTROINTESTINAL: Denies fatty food intolerance. Last colonoscopy November 2020 without neoplasm. Recent reversal of colostomy. History of recurrent pancreatitis. Cholecystectomy history. GENITOURINARY: Denies any blood in urine or increased urinary frequency. Has hysterectomy and tubal ligation. NEUROLOGICAL: Has neuropathy of the bilateral hands and feet. No seizure disorders or headaches. History of brain aneurysm. MUSCULOSKELETAL: Has back pain, stiffness or joint arthritis. Has fibromyalgia. Has scoliosis. SKIN: No current skin cancer. No rash. PSYCHIATRIC: Has anxiety and depression. Past psychosis and suicidal watch. ENDOCRINE: Denies current thyroid disorders. Denies any blood sugar glucose intolerance. HEME/LYMPHATIC: Denies any lumps and bumps around the neck. Past deep venous thrombosis. ALLERGY/IMMUNOLOGY: No immunoglobulin therapy. No immune deficiencies. BREAST: Denies current breast lumps, pain or nipple discharge. PHYSICAL EXAM: VITALS: Reviewed CONSTITUTIONAL: Well developed and in no acute distress. EYES: Conjuctivae without sclera icterus. Pupils are equally round and reactive to light. Extraocular movements grossly intact. HEAD, EARS, NOSE, THROAT: Moist buccal mucosa. Head is atraumatic, normocephalic. Hears conversational speech. No nasal drainage. NECK: Supple. No JV distention. No thyroidomegaly. RESPIRATORY: Non-labored respirations and equal bilateral excursions. No gross wheezes. CARDIOVASCULAR: Regular rate and rhythm. Palpable 2+ radial pulses. ABDOMEN: Midline incision intact. Laparoscopic incisions intact. MUSCULOSKELETAL: No clubbing cyanosis or edema. SKIN: Warm and well perfused with good skin turgor. NEUROLOGIC: Cranial nerves II through XII grossly intact. No focal or lateralizing signs. PSYCH: Appropriate affect. Alert and oriented to person, place and time. Displays appropriate insight. CLINCAL LABS: Reviewed. WBC normal 6.67 Lipase elevated 1779 down to 41. IMAGING: Independently reviewed CT of the abdomen and pelvis without free air or bowel obstruction. No incisional hernia. No inflammatory changes along the pancreas. This is my independent interpretation. RADIOLOGY: Report reviewed of CT of the abdomen and pelvis demonstrates no acute process. Anatomic variant of the pancreatic duct identified. ASSESSMENT: 1. Pancreatitis 2. Peritoneal adhesions 3. Anatomic variant or pancreatic duct PLAN: 1. Clinically, her symptoms have improving. May start regular diet. 2. She complains primarily of left lower quadrant abdominal pain at her incision consistent with peritoneal adhesions. May benefit from lysing adhesions. 3. Options for outpatient management lysis of adhesions described which the patient was agreeable to care plan. Past Medical History Past Medical History: Asthma, COPD, Fibromyalgia, Hyperlipidemia, Hypertension, Musculoskeletal Disorder, Osteoarthritis (OA), Pulmonary Embolus (PE) Additional Past Medical History / Comment(s): CHRONIC DIVERTICULITIS. Pancreatitis, chronic pain, DDD, DJD, cervical/back pain/bilateral scoliosis, spondylosis, neuropathy bilat hands and feet, pulmonary embolism R lung, brain aneurysm being monitored. History of Any Multi-Drug Resistant Organisms: None Reported Past Surgical History: Bowel Resection, Cholecystectomy, Hysterectomy, Tubal Ligation Additional Past Surgical History / Comment(s): DECEMBER 2020 BOWEL RESECTION WITH COLOSTOMY. D&C, angiograms d/t cerebral aneurysm. Colostomy reversal Past Anesthesia/Blood Transfusion Reactions: No Reported Reaction Additional Past Anesthesia/Blood Transfusion Reaction / Comm: motion sick as a child Past Psychological History: Anxiety, Depression Additional Psychological History / Comment(s): Pt lives with her son and his fiancee. Smoking Status: Current every day smoker Past Alcohol Use History: None Reported Additional Past Alcohol Use History / Comment(s): Pt started smoking in 1977, 1/2 ppd smoker, down to few cigarettes daily. She drank heavily in the past but has not drank alcohol since 2009. Past Drug Use History: Marijuana Additional Drug Use History / Comment(s): uses daily - Past Family History Mother Family Medical History: Cancer, Coronary Artery Disease (CAD) Additional Family Medical History / Comment(s): Mother had uterine cancer. Sister(s) Family Medical History: Cancer, Neurologic Disorder Additional Family Medical History / Comment(s): parkinsonism; uterine, lung cancer. Brother(s) Family Medical History: Cancer Additional Family Medical History / Comment(s): Pt had 2 brothers with cancer - 1 leukemia. Medications and Allergies Home Medications Medication Instructions Recorded Confirmed Type Multivitamins, Thera [Multivitamin 1 tab PO DAILY 01/27/21 01/27/22 History (formulary)] Loratadine [Claritin] 10 mg PO DAILY 04/17/21 01/27/22 History polyethylene glycoL 3350 17 gm PO DAILY 01/28/22 01/28/22 History [Polyethylene Glycol 3350] Allergies Allergy/AdvReac Type Severity Reaction Status Date / Time ibuprofen AdvReac Abdominal Verified 01/27/22 16:48 Pain Surgical - Exam Vital Signs Temp Pulse Resp BP Pulse Ox 98.2 F 87 16 142/83 95 01/27/22 13:52 01/27/22 13:52 01/27/22 13:52 01/27/22 13:52 01/27/22 13:52 Results - Labs 01/28/22 06:02 01/28/22 06:02 Abnormal Lab Results - Last 24 Hours (Table) 01/27/22 01/28/22 Range/Units 15:19 06:02 Chloride 109 H (98-107) mmol/L BUN 6.7 L (9.0-27.0) mg/dL Creatinine 0.48 L 0.5 L (0.52-1.04) mg/dL Amylase 147 H (30-110) U/L Lipase 1779 H (23-300) U/L Diabetes panel 01/27/22 01/28/22 Range/Units 15:19 06:02 Sodium 139 144 (137-145) mmol/L Potassium 3.9 3.8 (3.5-5.1) mmol/L Chloride 109 H 107 (98-107) mmol/L Carbon Dioxide 25 23.6 (22-30) mmol/L BUN 8 6.7 L (7-17) mg/dL Creatinine 0.48 L 0.5 L (0.52-1.04) mg/dL Glucose 76 94 (74-99) mg/dL Calcium 9.1 9.2 (8.4-10.2) mg/dL AST 24 14 (14-36) U/L ALT 14 13 (4-34) U/L Alkaline Phosphatase 64 65 (38-126) U/L Total Protein 7.2 6.4 (6.3-8.2) g/dL Albumin 4.1 4.0 (3.5-5.0) g/dL Calcium panel 01/27/22 01/28/22 Range/Units 15:19 06:02 Calcium 9.1 9.2 (8.4-10.2) mg/dL Albumin 4.1 4.0 (3.5-5.0) g/dL Pituitary panel 01/27/22 01/28/22 Range/Units 15:19 06:02 Sodium 139 144 (137-145) mmol/L Potassium 3.9 3.8 (3.5-5.1) mmol/L Chloride 109 H 107 (98-107) mmol/L Carbon Dioxide 25 23.6 (22-30) mmol/L BUN 8 6.7 L (7-17) mg/dL Creatinine 0.48 L 0.5 L (0.52-1.04) mg/dL Glucose 76 94 (74-99) mg/dL Calcium 9.1 9.2 (8.4-10.2) mg/dL Adrenal panel 01/27/22 01/28/22 Range/Units 15:19 06:02 Sodium 139 144 (137-145) mmol/L Potassium 3.9 3.8 (3.5-5.1) mmol/L Chloride 109 H 107 (98-107) mmol/L Carbon Dioxide 25 23.6 (22-30) mmol/L BUN 8 6.7 L (7-17) mg/dL Creatinine 0.48 L 0.5 L (0.52-1.04) mg/dL Glucose 76 94 (74-99) mg/dL Calcium 9.1 9.2 (8.4-10.2) mg/dL Total Bilirubin 0.4 0.60 (0.2-1.3) mg/dL AST 24 14 (14-36) U/L ALT 14 13 (4-34) U/L Alkaline Phosphatase 64 65 (38-126) U/L Total Protein 7.2 6.4 (6.3-8.2) g/dL Albumin 4.1 4.0 (3.5-5.0) g/dL
[2022-01-28] MEDS: oxyCODONE-APAP 5-325MG 1 EACH TAB PO PRN (20:04)
[2022-01-29] MEDS: oxyCODONE-APAP 5-325MG 1 EACH TAB PO PRN (02:59)
[2022-01-29] MEDS: SODIUM CHLORIDE 0.9% 1,000 ML IV SCH ×2 (03:06→10:55)
[2022-01-29 08:32] VITALS: BP 118/70; PULSE 62; RESP 18; TEMP 97.7
--- NOTE | 2022-01-29 08:35 | P.HPIM ---
History of Present Illness H&P Date: 01/28/22 Chief Complaint: generalized pain and malaise Kamryn Martin is a 61 yo F with PMH of fibromyalgia, history of complicated diverticulitis with bowel resection who presented to the ED complaining of pain especially in her abdomen around her previous surgery and adhensions as well as generalized malaise. She states she has been following a regular diet and denies any specific inciting factor but in the past day or so began to have constant abdominal pain worse with eating. She denies alcohol use. No fever, chills, shortness of breath, nausea or vomiting. On presentation, vitals stable, labs unremarkable with the exception of lipase 1800. CT abd/pelvis performed and no acute process. Review of Systems All systems: negative Constitutional: Denies chills, Denies fever Eyes: denies blurred vision, denies pain Ears, nose, mouth and throat: Denies headache, Denies sore throat Cardiovascular: Denies chest pain, Denies shortness of breath Respiratory: Denies cough Gastrointestinal: Reports abdominal pain, Denies diarrhea, Denies nausea, Denies vomiting Genitourinary: Denies dysuria, Denies hematuria Musculoskeletal: Denies myalgias Integumentary: Denies pruritus, Denies rash Neurological: Denies numbness, Denies weakness Psychiatric: Denies anxiety, Denies depression Endocrine: Denies fatigue, Denies weight change Past Medical History Past Medical History: Asthma, COPD, Fibromyalgia, Hyperlipidemia, Hypertension, Musculoskeletal Disorder, Osteoarthritis (OA), Pulmonary Embolus (PE) Additional Past Medical History / Comment(s): CHRONIC DIVERTICULITIS. Pa ncreatitis, chronic pain, DDD, DJD, cervical/back pain/bilateral scoliosis, spondylosis, neuropathy bilat hands and feet, pulmonary embolism R lung, brain aneurysm being monitored. History of Any Multi-Drug Resistant Organisms: None Reported Past Surgical History: Bowel Resection, Cholecystectomy, Hysterectomy, Tubal Ligation Additional Past Surgical History / Comment(s): DECEMBER 2020 BOWEL RESECTION WITH COLOSTOMY. D&C, angiograms d/t cerebral aneurysm. Colostomy reversal Past Anesthesia/Blood Transfusion Reactions: No Reported Reaction Additional Past Anesthesia/Blood Transfusion Reaction / Comment(s): motion sick as a child Past Psychological History: Anxiety, Depression Additional Psychological History / Comment(s): Pt lives with her son and his fiancee. Smoking Status: Current every day smoker Past Alcohol Use History: None Reported Additional Past Alcohol Use History / Comment(s): Pt started smoking in 1977, 1/2 ppd smoker, down to few cigarettes daily. She drank heavily in the past but has not drank alcohol since 2009. Past Drug Use History: Marijuana Additional Drug Use History / Comment(s): uses daily - Past Family History Mother Family Medical History: Cancer, Coronary Artery Disease (CAD) Additional Family Medical History / Comment(s): Mother had uterine cancer. Sister(s) Family Medical History: Cancer, Neurologic Disorder Additional Family Medical History / Comment(s): parkinsonism; uterine, lung cancer. Brother(s) Family Medical History: Cancer Additional Family Medical History / Comment(s): Pt had 2 brothers with cancer - 1 leukemia. Medications and Allergies Home Medications Medication Instructions Recorded Confirmed Type Multivitamins, Thera [Multivitamin 1 tab PO DAILY 01/27/21 01/27/22 History (formulary)] Loratadine [Claritin] 10 mg PO DAILY 04/17/21 01/27/22 History polyethylene glycoL 3350 17 gm PO DAILY 01/28/22 01/28/22 History [Polyethylene Glycol 3350] Allergies Allergy/AdvReac Type Severity Reaction Status Date / Time ibuprofen AdvReac Abdominal Verified 01/27/22 16:48 Pain Physical Exam Vitals: Vital Signs Temp Pulse Resp BP Pulse Ox 01/29/22 02:48 97.6 F 65 19 151/75 95 01/28/22 20:04 98.0 F 56 L 18 156/81 95 01/28/22 13:41 98.0 F 73 17 144/82 96 Intake and Output 01/28/22 01/29/22 01/29/22 22:59 06:59 14:59 Other: Voiding Method Toilet Toilet # Voids 2 4 General: well developed elderly female in NAD HEENT: Normocephalic, atraumatic, mucus membranes moist Neck: supple, no thyromegaly or JVD CV: RRR, no murmur. Pulses 2+ Lungs: Normal effort, clear throughout Abd: soft. nondistended. Tender throughout Neuro: alert and oriented x3, no focal deficit Skin: warm and dry Results CBC & Chem 7: 01/28/22 06:02 01/28/22 06:02 Labs: Abnormal Lab Results - Last 24 Hours (Table) 01/28/22 Range/Units 06:02 BUN 6.7 L (9.0-27.0) mg/dL Creatinine 0.5 L (0.6-1.5) mg/dL Assessment and Plan Plan: 1. Abdominal pain. Acute pancreatitis. Admit, clear liquid diet, surgery consult. IV fluids. Pain control. Suspect contribution from scar tissue and consider outpatient lysis of adhesions 2. Fibromyalgia. Discussed options for pain processing and she elects to hold off at this time
--- NOTE | 2022-01-29 08:37 | P.DS ---
Providers Date of admission: 01/27/22 17:04 Expected date of discharge: 01/29/22 Attending physician: Santiago Berg MD Consults: 01/27/22 17:04 Consult Physician Routine Consulting Provider: Candice Leo Consult Reason/Comments: Pancreatitis, abdominal pain Do you want consulting provider notified?: Yes Primary care physician: Santiago Berg MD Hospital Course: Kamryn Martin is a 61 yo F with PMH of fibromyalgia, history of complicated diverticulitis with bowel resection who presented to the ED complaining of pain especially in her abdomen around her previous surgery and adhensions as well as generalized malaise. She states she has been following a regular diet and denies any specific inciting factor but in the past day or so began to have constant abdominal pain worse with eating. She denies alcohol use. No fever, chills, shortness of breath, nausea or vomiting. On presentation, vitals stable, labs unremarkable with the exception of lipase 1800. CT abd/pelvis performed and no acute process. Pt seen and evaluated by surgery and felt to be related to her previous adhesions. She will consider outpatient JIMY. Pt treated with IV fluids with improvement in pain. She is discharged in stable condition and recommended to follow up with her PCP and surgeon as an outpatient. Plan - Discharge Summary New Discharge Prescriptions: Continue polyethylene glycoL 3350 [Polyethylene Glycol 3350] 17 gm PO DAILY Multivitamins, Thera [Multivitamin (formulary)] 1 tab PO DAILY Loratadine [Claritin] 10 mg PO DAILY Discharge Medication List Multivitamins, Thera [Multivitamin (formulary)] 1 tab PO DAILY 01/27/21 [History] Loratadine [Claritin] 10 mg PO DAILY 04/17/21 [History] polyethylene glycoL 3350 [Polyethylene Glycol 3350] 17 gm PO DAILY 01/28/22 [History] Follow up Appointment(s)/Referral(s): Santiago Berg MD [Primary Care Provider] - 1-2 days Candice Leo MD [STAFF PHYSICIAN] - 02/16/22 Discharge Disposition: HOME SELF-CARE
[2022-01-29] MEDS: LORATADINE 10 MG TAB PO SCH (09:08)
[2022-01-29] MEDS: polyethylene glycoL 3350 17 GM POWD.PACK PO SCH (09:08)
[2022-01-29] MEDS: MULTIVITAMINS, THERA 1 EACH TAB PO SCH (09:08)
[2022-01-29] MEDS: DOCUSATE 100 MG CAP PO SCH (09:08)
[2022-01-29] MEDS: PANTOPRAZOLE 40 MG/10 ML VIAL IV SCH (09:08)
--- NOTE | 2022-01-29 10:08 | P.PN ---
Subjective Progress Note Date: 01/29/22 CHIEF COMPLAINT: Abdominal pain HISTORY OF PRESENT ILLNESS: The patient is a 61-year-old female admitted with abdominal pain including pancreatitis. Pancreatic enzymes are normal. She tolerated diet. Patient's pre-existing history of multiple abdominal surgeries and pain consistent with adhesions. ROS: No reports of nausea and vomiting. No fevers or chills. No new chest pain. No productive sputum PHYSICAL EXAM: VITAL SIGNS: Reviewed CONSTITUTIONAL: Well developed and in no acute distress. EYES: Conjuctivae without sclera icterus. Extraocular movements grossly intact. HEAD, EARS, NOSE, THROAT: Moist buccal mucosa. Head is atraumatic, normocephalic. Hears conversational speech. No nasal drainage. RESPIRATORY: Non-labored respirations and equal bilateral excursions. CARDIOVASCULAR: Palpable 2+ radial pulses. ABDOMEN: Well-healed incisions without incisional hernia. Mild tenderness over incision left lower quadrant. MUSCULOSKELETAL: No gross deformity of the lower extremities noted. No clubbing. No cyanosis. SKIN: Good skin turgor. Well perfused. NEUROLOGIC: Cranial nerves II through XII grossly intact. No focal or lateralizing signs. PSYCH: Appropriate affect. Alert and oriented to person, place and time. CLINICAL LABS: Reviewed. Lipase down from over 1400 to normal. No leukocytosis. ASSESSMENT: 1. Pancreatitis, resolved 2. Peritoneal adhesions due to multiple abdominal surgeries PLAN: 1. Follow up as outpatient described for outpatient lysis of adhesions. 2. Diet as tolerated Objective - Vital Signs Vital signs: Vital Signs Temp 97.7 F 01/29/22 07:00 Pulse 62 01/29/22 07:00 Resp 18 01/29/22 07:00 BP 118/70 01/29/22 07:00 Pulse Ox 95 01/29/22 07:00 FiO2 Intake & Output 01/28/22 01/29/22 01/29/22 18:59 06:59 18:59 Intake Total 120 Balance 120 Intake: Oral 120 Other: Voiding Method Toilet # Voids 1 4 - Labs CBC & Chem 7: 01/28/22 06:02 01/28/22 06:02 Labs: Abnormal Lab Results - Last 24 Hours (Table) 01/28/22 Range/Units 06:02 BUN 6.7 L (9.0-27.0) mg/dL Creatinine 0.5 L (0.6-1.5) mg/dL
== END 2022-01-29 11:20 | disposition home or self-care (01) ==
LOC: EC 13:47 → 4SSUR 17:04 → 6NMEDSUR 17:13
PROVIDERS: ADMIT Family Medicine; ATTEND Family Medicine
DX: K85.90 Acute pancreatitis without necrosis or infection, unspecified (principal); K66.0 Peritoneal adhesions (postprocedural) (postinfection); M79.7 Fibromyalgia; K57.92 Diverticulitis of intestine, part unspecified, without perforation or abscess without bleeding; J06.9 Acute upper respiratory infection, unspecified; J44.9 Chronic obstructive pulmonary disease, unspecified; E78.5 Hyperlipidemia, unspecified; R74.8 Abnormal levels of other serum enzymes; I10 Essential (primary) hypertension; M19.90 Unspecified osteoarthritis, unspecified site; F32.A Depression, unspecified; F41.9 Anxiety disorder, unspecified; I25.10 Atherosclerotic heart disease of native coronary artery without angina pectoris; R53.81 Other malaise; M47.9 Spondylosis, unspecified; M50.30 Other cervical disc degeneration, unspecified cervical region; G62.9 Polyneuropathy, unspecified; G89.29 Other chronic pain; M54.9 Dorsalgia, unspecified; F17.210 Nicotine dependence, cigarettes, uncomplicated; Z20.822 Contact with and (suspected) exposure to COVID-19; Z86.711 Personal history of pulmonary embolism; F17.200 Nicotine dependence, unspecified, uncomplicated; Z88.8 Allergy status to other drugs, medicaments and biological substances; Z90.49 Acquired absence of other specified parts of digestive tract; Z90.710 Acquired absence of both cervix and uterus; Z82.49 Family history of ischemic heart disease and other diseases of the circulatory system; Z80.49 Family history of malignant neoplasm of other genital organs; Z80.1 Family history of malignant neoplasm of trachea, bronchus and lung; Z82.0 Family history of epilepsy and other diseases of the nervous system; Z80.6 Family history of leukemia
CPT/HCPCS: 96376 ×2; 96361 ×2; 96375 ×2; 96374; 99285; 36415; 80053 ×2; 82150 ×2; 83615; 83690 ×2; 85025 ×2; 85610; 85730; 81003; 87502; 87635; 71046; 74177; G0378 ×3; J2270; C9113 ×2; J1170 ×2; Q9967

== ENCOUNTER → 2022-08-07 | Outpatient (CLI) | payer OTHER ==
--- NOTE | 2022-08-08 02:24 | MR ---
EXAMINATION TYPE: MR angio head wo/w con DATE OF EXAM: 08/07/2022 COMPARISON: 05/08/2018 HISTORY: Cerebral aneurysm follow up CONTRAST: Standard multiplanar, multisequence MRI departmental protocol images were obtained without contrast a nd with 8.5 mL intravenous Gadavist gadolinium contrast. MR angiographic images were obtained of the intracerebral arterial circulation. There is arterial flow in the anterior middle and posterior cerebral arteries bilaterally. There is a rterial flow in both intracranial internal carotid arteries. There is arterial flow in the distal jose enrique tebral arteries and the basilar artery. 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 There is no mass effect. No evidence of hemodynamic stenosis. The remainder of the exam is unremarkable. 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
== END | disposition home or self-care (01) ==
LOC: RADMRIMAIN 13:25
PROVIDERS: ATTEND Family Medicine
DX: I67.1 Cerebral aneurysm, nonruptured (principal)
CPT/HCPCS: 70546; A9585

== ENCOUNTER → 2023-05-18 | Outpatient (CLI) | payer OTHER ==
--- NOTE | 2023-05-18 18:50 | CT ---
EXAMINATION TYPE: CT abdomen pelvis wo con DATE OF EXAM: 05/18/2023 HISTORY: lower abdominal and rectal pain. Unspecified abdominal pain. CT DLP: 555.9 mGycm. Automated Exposure Control for Dose Reduction was Utilized. TECHNIQUE: CT scan of the abdomen and pelvis is performed with limited oral but without IV contrast. COMPARISON: Most recent prior CT January 27, 2022 FINDINGS: Within the limitations of a non-contrast study, the following observations are made. LUNG BASES: Coronary artery calcification is redemonstrated. LIVER/GB: Liver remains low dense consistent with fatty infiltrative hepatocellular disease. Gallblad isaac remains surgically absent PANCREAS: No significant abnormality is seen. SPLEEN: No significant abnormality is seen. ADRENALS: No significant abnormality is seen. KIDNEYS: No renal stones or hydronephrosis is seen bilaterally. BOWEL: Oral contrast has not reached level of terminal ileum making evaluation of distal bowel slight ly suboptimal. No suspicious small or large bowel dilatation is seen. Surgical changes at level of si gmoid colon left pelvis axial image 76 are redemonstrated. GENITAL ORGANS: Uterus is surgically absent or markedly atrophic. Scattered bilateral pelvic phleboli ths are redemonstrated. LYMPH NODES: No greater than 1cm abdominal or pelvic lymph nodes are appreciated. OSSEOUS STRUCTURES: Transitional type LVI vertebra which is sacralized. There is vacuum disc phenomen on and moderate disc space narrowing at L4-L5 and L5-L6 levels. There is mild disc space narrowing at L3-L4 level. OTHER: No significant additional abnormality is seen. IMPRESSION: No suspicious new or acute finding identified to account for patient's symptoms.
== END | disposition home or self-care (01) ==
LOC: RADCTMAIN 16:35
PROVIDERS: ATTEND Family Medicine
DX: R10.9 Unspecified abdominal pain (principal); K85.10 Biliary acute pancreatitis without necrosis or infection; K57.50 Diverticulosis of both small and large intestine without perforation or abscess without bleeding
CPT/HCPCS: 74176

== ENCOUNTER 2023-09-14 07:49 | Day surgery (SDC) | payer OTHER ==
[2023-08-03 11:05] VITALS: BMI 27.8
[~2023-09-14 07:49] MED LIST changes: -ACETAMINOPHEN TAB 500 MG TAB PO PRN; -ALVIMOPAN 12 MG CAPSULE PO PRN; -Antibiotics per Pharmacy 1 EACH MISC MISCELLANE PRN; -DEXAMETHASONE SOD PHOSPHATE 4 MG/ML 1 ML VIAL IV ONE; -GABAPENTIN 300 MG CAP PO PRN; -HEPARIN SODIUM,PORCINE/PF 5,000 UNIT/0.5 ML SYRINGE SQ PRN; -HYDROmorphone 0.5 MG/0.5 ML SYRINGE IVP PRN; +LACTATED RINGERS 1,000 ML IV SCH; -MIDAZOLAM 2 MG/2 ML VIAL IV PRN; -ONDANSETRON 4 MG/2 ML VIAL IVP ONE; -SCOPOLAMINE 1.5MG/72HR PATCH TRANSDERM ONE; -SCOPOLAMINE 1.5MG/72HR PATCH TRANSDERM PRN; -metroNIDAZOLE-NS PMX 500 MG in SALINE 1 100ML.BAG IVPB PRN
[2023-09-14] MEDS: LACTATED RINGERS 1,000 ML IV ONE (08:46)
[2023-09-14 08:55] VITALS: TEMP 98.1
[2023-09-14] MEDS ORDERED: PROPOFOL 10 MG/ML 20 ML VIAL IV ONE (09:12)
--- NOTE | 2023-09-14 09:26 | P.PCN ---
Date of Procedure: 09/14/23 Procedure(s) Performed: BRIEF HISTORY: Patient is a 62-year-old pleasant white female scheduled for an elective colonoscopy as a part of evaluation of left lower quadrant abdominal pain for the last 2 years duration. PROCEDURE PERFORMED: Colonoscopy with snare polypectomy. PREOPERATIVE DIAGNOSIS: Left lower quadrant abdominal pain of 2 years duration. IV sedation per Anesthesia. PROCEDURE: After informed consent was obtained, the patient, was brought into the endoscopy unit. IV sedation was administered by Anesthesia under continuous monitoring. Digital rectal examination was normal. Initially the Olympus CF-160 flexible video colonoscope was then inserted in the rectum, gradually advanced into the cecum without any difficulty. Careful examination was performed as the scope was gradually being withdrawn. Ileocecal valve and the appendiceal orifice were visualized and appeared normal. Prep was excellent. Mucosa of the cecum, appeared normal. Ascending colon there was a 5 mm polyp that was removed by cold snare polypectomy. In the transverse colon there was a 4 mm polyp that was removed by cold snare polypectomy. Rest of the ascending colon, transverse colon, descending colon, , and rectum appeared normal. Anastomosis from sigmoid colectomy was located at 50 cm from the anal was there appeared normal. Scattered diverticula seen. Retroflexion was performed in the rectum and no lesions were seen. The patient tolerated the procedure well. IMPRESSION: 5 mm ascending colon polyp status post cold snare polypectomy 4 mm transverse colon polyp status post cold snare polypectomy Widely patent proximal rectal anastomosis at 50 cm from the anal verge Scattered left sided diverticulosis RECOMMENDATIONS: Findings of this examination were discussed with the patient as well as her family. She was advised to follow with the biopsy results and if the biopsy result adenoma, recommend repeat colonoscopy in 5 years. In the meantime she'll continue with a high-fiber diet and fiber supplements a regular basis..
[2023-09-14 12:06] VITALS: BP 121/70; PULSE 78; RESP 18
== END 2023-09-14 10:00 | disposition home or self-care (01) ==
LOC: ORWHC2ENDO 07:49
PROVIDERS: ATTEND Internal Medicine Gastroenterology
DX: D12.2 Benign neoplasm of ascending colon (principal); D12.3 Benign neoplasm of transverse colon; K57.30 Diverticulosis of large intestine without perforation or abscess without bleeding; J44.9 Chronic obstructive pulmonary disease, unspecified; F17.210 Nicotine dependence, cigarettes, uncomplicated; F41.9 Anxiety disorder, unspecified; F32.A Depression, unspecified; M79.7 Fibromyalgia; Z79.899 Other long term (current) drug therapy
CPT/HCPCS: 45385; J2704; 88305

== ENCOUNTER 2024-04-06 13:11 | Emergency (ER) | payer OTHER ==
[2024-04-06] MEDS: HYDROcodone/APAP 5-325MG 1 EACH TAB PO STA (14:20)
--- NOTE | 2024-04-06 14:26 | XR ---
EXAMINATION TYPE: XR foot limited LT DATE OF EXAM: 04/06/2024 CLINICAL HISTORY: pain TECHNIQUE: Frontal, lateral images of the left foot are obtained. COMPARISON: None. FINDINGS: There is no acute fracture/dislocation evident. The joint spaces appear within normal garcia its. The overlying soft tissue appears unremarkable. IMPRESSION: There is no acute fracture or dislocation. ICD 10 NO FRACTURE, INITIAL EVALUATION
--- NOTE | 2024-04-06 14:32 | XR ---
EXAMINATION TYPE: XR wrist limited LT DATE OF EXAM: 04/06/2024 CLINICAL HISTORY: pain TECHNIQUE: Frontal, lateral images of the left wrist are obtained. COMPARISON: None. FINDINGS: There is no acute fracture/dislocation evident. The joint spaces appear within normal garcia its. The overlying soft tissue appears unremarkable. IMPRESSION: There is no acute fracture or dislocation seen. ICD 10 NO FRACTURE, INITIAL EVALUATION
--- NOTE | 2024-04-06 14:33 | XR ---
EXAMINATION TYPE: XR ankle limited LT DATE OF EXAM: 04/06/2024 COMPARISON: NONE HISTORY: Pain TECHNIQUE: 2 views of the left ankle are submitted for evaluation. FINDINGS: There is no evidence for fracture or dislocation. Ankle mortise is intact. Soft tissues are within normal limits. IMPRESSION: 1. No evidence for acute fracture.
--- NOTE | 2024-04-06 14:37 | XR ---
EXAMINATION TYPE: XR shoulder limited RT DATE OF EXAM: 04/06/2024 CLINICAL HISTORY: pain TECHNIQUE: 1 view obtained COMPARISON: None FINDINGS: There is fracture noted to involve the distal acromion and possibly the distal clavicle. Ad ditional views are recommended of the AC joint. Glenohumeral joint appears to be grossly intact. IMPRESSION: 1. As above
--- NOTE | 2024-04-06 15:10 | ED ---
General Adult HPI - General Chief complaint: Extremity Injury, Upper Stated complaint: Fall-L ankle/ R shoulder injury Time Seen by Provider: 04/06/24 13:55 Source: patient, RN notes reviewed, old records reviewed Mode of arrival: wheelchair Limitations: no limitations - History of Present Illness Initial comments: Patient is a 63-year-old female presents emergency department after a fall. Patient fell 3 days ago. States she tripped and landed on grass. Landed on her right shoulder and twisted her left ankle and landed on both outstretched wrist. But pain was improved but is still having pain in the left wrist, left ankle, right shoulder. Able to move all of these extremities. Able to walk. Presents just due to the persistent pain. Denies hitting her head. Denies loss of consciousness. Denies any back pain. Denies chest pain or abdominal pain. Does not on blood thinners. Denies any other injuries. Presents for further evaluation - Related Data Home Medications Medication Instructions Recorded Confirmed Multivitamins, Thera [Multivitamin 1 tab PO DAILY 01/27/21 09/12/23 (formulary)] Loratadine [Claritin] 10 mg PO DAILY 04/17/21 09/12/23 Venlafaxine HCl ER [Effexor Xr] 37.5 mg PO DAILY 08/03/23 09/12/23 polyethylene glycoL 3350 [Miralax] 17 gm PO DAILY 08/03/23 09/12/23 Previous Rx's Medication Instructions Recorded Acetaminophen [Tylenol] 325 mg PO Q4H PRN #30 tab 04/22/23 Allergies Allergy/AdvReac Type Severity Reaction Status Date / Time ibuprofen AdvReac Abdominal Verified 09/14/23 08:38 Pain Review of Systems ROS Statement: Those systems with pertinent positive or pertinent negative responses have been documented in the HPI. Review of Systems: CONST: Denies fever EYES: Denies blurry vision ENT: Denies nasal congestion C/V: Denies Chest pain RESP: Denies shortness of breath GI: Denies abdominal pain : Denies dysuria SKIN: Denies rash. MSK: Endorses right shoulder pain, left ankle pain, left wrist pain NEURO: Denies headache ROS Other: All systems not noted in ROS Statement are negative. Past Medical History Past Medical History: Asthma, COPD, Fibromyalgia, Musculoskeletal Disorder, Osteoarthritis (OA), Pulmonary Embolus (PE) Additional Past Medical History / Comment(s): Hx Pancreatitis, chronic pain, DDD, DJD, cervical/back pain/bilateral scoliosis, spondylosis, neuropathy bilateral hands and feet, pulmonary embolism right lung, brain aneurysm for 12 years, s are watching. History of Any Multi-Drug Resistant Organisms: None Reported Past Surgical History: Bowel Resection, Cholecystectomy, Hysterectomy, Tubal Ligation Additional Past Surgical History / Comment(s): DECEMBER 2020 BOWEL RESECTION WITH COLOSTOMY, D&C, angiograms d/t cerebral aneurysm, colostomy reversal. Past Anesthesia/Blood Transfusion Reactions: No Reported Reaction Additional Past Anesthesia/Blood Transfusion Reaction / Comment(s): Motion sickness as a child. Past Psychological History: Anxiety, Depression Smoking Status: Current every day smoker Past Alcohol Use History: Heavy Past Drug Use History: Marijuana - Past Family History Mother Family Medical History: Cancer, Coronary Artery Disease (CAD) Additional Family Medical History / Comment(s): Uterine cancer. Sister(s) Family Medical History: Cancer, Neurologic Disorder Additional Family Medical History / Comment(s): Parkinsonism, uterine and lung cancer. Brother(s) Family Medical History: Cancer Additional Family Medical History / Comment(s): 2 brothers with cancer - 1 leukemia. General Exam - General Exam Comments Initial Comments: General: Appears in no acute distress. HEAD: Normal with no signs of head trauma. Negative raccoon eyes. Negative Griggs sign EYES: EOMI. ENT: Hearing grossly intact. RESPIRATORY: No respiratory distress. C/V: Regular rate and rhythm. ABD: Abdomen is nondistended. EXT: Tenderness to palpation over the right shoulder. Pain with extension above 90 degrees. No obvious deformities. Neurovascularly intact. Tenderness palpation of the left wrist. No snuffbox tenderness of the left wrist. Tenderness to palpation over the anterior aspect of the left ankle. No malleoli or tenderness. Some mild dorsal foot tenderness as well with some edema. No obvious deformities. No spinal tenderness to palpation. Pelvis is stable. SKIN: No rashes or lesions observed on exposed skin. NEURO: Alert and oriented. Limitations: no limitations Course Vital Signs 04/06/24 13:37 Temperature 98.2 F Pulse Rate 80 Respiratory 20 Rate Blood Pressure 129/77 O2 Sat by Pulse 97 Oximetry Medical Decision Making - Medical Decision Making Was pt. sent in by a medical professional or institution (JORDI Stone, DEMO SPECIALIST, urgent care, hospital, or jail...) When possible be specific @ -[No] Did you speak to anyone other than the patient for history (EMS, parent, family, police, friend...)? What history was obtained from this source @ -[No] Did you review nursing and triage notes (agree or disagree)? Why? @ -[I reviewed and agree with nursing and triage notes] Were old charts reviewed (outside hosp., previous admission, EMS record, old EKG, old radiological studies, urgent care reports/EKG's, jail records)? Report findings @ -[No old charts were reviewed] Differential Diagnosis (chest pain, altered mental status, abdominal pain women, abdominal pain men, vaginal bleeding, weakness, fever, dyspnea, syncope, headache, dizziness, GI bleed, back pain, seizure, CVA, palpatations, mental health, musculoskeletal)? @ -Differential Musculoskeletal Muscular strain, contusion, ligament sprain, fracture, arthritis, septic arthritis, bursitis, cellulitis, muscle spasm, nerve compression, DVT, arterial occlusion, herpes zoster, electrolyte abnormality, tumor.... This is not meant to be in all inclusive list EKG interpreted by me (3pts min.). @ -None done X-rays interpreted by me (1pt min.). @ -Left foot, ankle x-ray negative for obvious fracture. Left wrist x-ray negative for obvious fracture. Right shoulder x-ray shows fracture of distal acromion as well as possible fracture of distal clavicle. Nondisplaced. CT interpreted by me (1pt min.). @ -[None done] U/S interpreted by me (1pt. min.). @ -[None done] What testing was considered but not performed or refused? (CT, X-rays, U/S, labs)? Why? @ -[None] What meds were considered but not given or refused? Why? @ -[None] Did you discuss the management of the patient with other professionals (professionals i.e. JORDI Stone, DEMO SPECIALIST, lab, RT, psych nurse, social insurance administrator, highway maintenance technician, teacher, correction officer city or county jail, case management social worker)? Give summary @ -[No] Was smoking cessation discussed for >3mins.? @ -[No] Was critical care preformed (if so, how long)? @ -[No] Were there social determinants of health that impacted care today? How? (Homelessness, low income, unemployed, alcoholism, drug addiction, transportation, low edu. Level, literacy, decrease access to med. care, halfway, rehab)? @ -[No] Was there de-escalation of care discussed even if they declined (Discuss DNR or withdrawal of care, Hospice)? DNR status @ -[No] What co-morbidities impacted this encounter? (DM, HTN, Smoking, COPD, CAD, Cancer, CVA, ARF, Chemo, Hep., AIDS, mental health diagnosis, sleep apnea, morbid obesity)? @ -[None] Was patient admitted / discharged? Hospital course, mention meds given and route, prescriptions, significant lab abnormalities, going to OR and other pertinent info. @ -Patient presents multiple days after a fall. Vitals within acceptable limits. We will x-ray of the right shoulder, left ankle, left wrist, left foot. She will be given [place] for pain. She was in agreement this plan. Vitals within acceptable limits. Imaging result remarkable for right shoulder acromion nondisplaced fracture as well as possible nondisplaced fracture of the right distal clavicle. Discussed the results with the patient. She will be placed in a sling and instructed follow-up with orthopedic surgery. She will be given a starter pack of Tylenol 3's. Instructed ice, rest for the sprains of her left wrist and ankle. No indication for splinting of the left wrist as she does not have anatomical snuffbox tenderness to palpation and has no evidence of acute fracture. She was in agreement this plan. Strict return precautions discussed. I instructed the patient to follow up with their PCP in the next 1-3 days. [I provided contact information for follow up with] orthopedics. I explained that the patient should return to the emergency department if they experience any worsening symptoms. Strict return precautions were discussed with the patient. The patient expressed understanding of these instructions. I answered all questions that the patient had. The patient was discharged home in [good] condition with their prescriptions and follow up information. Undiagnosed new problem with uncertain prognosis? @ -[No] Drug Therapy requiring intensive monitoring for toxicity (Heparin, Nitro, Insulin, Cardizem)? @ -[No] Were any procedures done? @ -[No] Diagnosis/symptom? @ -Fall, right acromion fracture/right clavicle fracture, left wrist sprain, left ankle sprain Acute, or Chronic, or Acute on Chronic? @ -Acute Uncomplicated (without systemic symptoms) or Complicated (systemic symptoms)? @ -Uncomplicated Side effects of treatment? @ -[No] Exacerbation, Progression, or Severe Exacerbation? @ -[No] Poses a threat to life or bodily function? How? (Chest pain, [place], [place], pneumonia, PE, COPD, DKA, ARF, appy, cholecystitis, CVA, Diverticulitis, Homicidal, Suicidal, threat to staff... and all critical care pts) @ -Unlikely Disposition Clinical Impression: Fall, Left wrist sprain, Left ankle sprain, Acromial fracture, Fracture of right clavicle Disposition: HOME SELF-CARE Condition: Good Instructions (If sedation given, give patient instructions): Clavicle Fracture (ED), Wrist Sprain (ED), Ankle Sprain (ED) Is patient prescribed a controlled substance at d/c from ED?: No Referrals: Santiago Berg MD [Primary Care Provider] - 1-2 days Adrien Lopez DO [Doctor of Osteopathic Medicine] - 1-2 days Time of Disposition: 15:01
[2024-04-06] MEDS: ACET/COD 300 MG/30 MG STARTER PACK 6 TAB BTL PO STA (15:18)
[2024-04-06 15:28] VITALS: BP 122/77; PULSE 77; RESP 18; TEMP 98
== END 2024-04-06 15:30 | disposition home or self-care (01) ==
LOC: EC 13:11
DX: S42.031A Displaced fracture of lateral end of right clavicle, initial encounter for closed fracture (principal); S93.402A Sprain of unspecified ligament of left ankle, initial encounter; S63.502A Unspecified sprain of left wrist, initial encounter; F17.200 Nicotine dependence, unspecified, uncomplicated; Z88.6 Allergy status to analgesic agent; W01.0XXA Fall on same level from slipping, tripping and stumbling without subsequent striking against object, initial encounter
CPT/HCPCS: 99283

== ENCOUNTER 2024-04-08 13:24 | Emergency (ER) | payer OTHER ==
[2024-04-08 13:41] VITALS: BP 137/81; PULSE 78; RESP 16; TEMP 98.2
--- NOTE | 2024-04-08 13:51 | ED ---
General Adult HPI - General Chief complaint: Extremity Injury, Upper Stated complaint: Recheck-L leg pain Time Seen by Provider: 04/08/24 13:39 Source: patient, RN notes reviewed Mode of arrival: wheelchair Limitations: no limitations - History of Present Illness Initial comments: 63-year-old female presents emergency department chief complaint of left a nterior leg pain. Patient states that she was seen emergency department a few days ago for a fall and was diagnosed with a fracture of her right shoulder and a sprained ankle of the left leg. Patient is still experiencing left leg pain and she is concerned that the x-rays are ordered a few days ago did not go far enough the leg because she is having mid mao pain.. Denies recent reinjury or falls. denies loss of bladder or Bowel continence or saddle anesthesias. No other acute complaints at this time. - Related Data Home Medications Medication Instructions Recorded Confirmed Multivitamins, Thera [Multivitamin 1 tab PO DAILY 01/27/21 09/12/23 (formulary)] Loratadine [Claritin] 10 mg PO DAILY 04/17/21 09/12/23 Venlafaxine HCl ER [Effexor Xr] 37.5 mg PO DAILY 08/03/23 09/12/23 polyethylene glycoL 3350 [Miralax] 17 gm PO DAILY 08/03/23 09/12/23 Previous Rx's Medication Instructions Recorded Acetaminophen [Tylenol] 325 mg PO Q4H PRN #30 tab 04/22/23 Allergies Allergy/AdvReac Type Severity Reaction Status Date / Time ibuprofen AdvReac Abdominal Verified 04/08/24 13:40 Pain Review of Systems ROS Statement: Those systems with pertinent positive or pertinent negative responses have been documented in the HPI. ROS Other: All systems not noted in ROS Statement are negative. Past Medical History Past Medical History: Asthma, COPD, Fibromyalgia, Musculoskeletal Disorder, Osteoarthritis (OA), Pulmonary Embolus (PE) Additional Past Medical History / Comment(s): Hx Pancreatitis, chronic pain, DDD, DJD, cervical/back pain/bilateral scoliosis, spondylosis, neuropathy bilateral hands and feet, pulmonary embolism right lung, brain aneurysm for 12 years, are watching. History of Any Multi-Drug Resistant Organisms: None Reported Past Surgical History: Bowel Resection, Cholecystectomy, Hysterectomy, Tubal Ligation Additional Past Surgical History / Comment(s): DECEMBER 2020 BOWEL RESECTION WITH COLOSTOMY, D&C, angiograms d/t cerebral aneurysm, colostomy reversal. Past Anesthesia/Blood Transfusion Reactions: No Reported Reaction Additional Past Anesthesia/Blood Transfusion Reaction / Comment(s): Motion sickness as a child. Past Psychological History: Anxiety, Depression Smoking Status: Current every day smoker Past Alcohol Use History: Heavy Past Drug Use History: Marijuana - Past Family History Mother Family Medical History: Cancer, Coronary Artery Disease (CAD) Additional Family Medical History / Comment(s): Uterine cancer. Sister(s) Family Medical History: Cancer, Neurologic Disorder Additional Family Medical History / Comment(s): Parkinsonism, uterine and lung cancer. Brother(s) Family Medical History: Cancer Additional Family Medical History / Comment(s): 2 brothers with cancer - 1 leuk emia. General Exam - General Exam Comments Initial Comments: Visual Physical Exam Vital signs reviewed General: Well-appearing, nontoxic, no acute distress. Head: Normocephalic, atraumatic Eyes: PERRLA, EOMI ENT: Airway patent Chest: Nonlabored breathing Skin: No visual rash, normal skin tone Neuro: Alert and oriented 3 Musculoskeletal: No gross abnormalities Limitations: no limitations General appearance: alert, in no apparent distress Head exam: Present: atraumatic, normocephalic, normal inspection ENT exam: Present: normal exam, mucous membranes moist Neck exam: Present: normal inspection. Absent: tenderness, meningismus, lymphadenopathy Respiratory exam: Present: normal lung sounds bilaterally. Absent: respiratory distress, wheezes, rales, rhonchi, stridor Cardiovascular Exam: Present: regular rate, normal rhythm, normal heart sounds. Absent: systolic murmur, diastolic murmur, rubs, gallop, clicks GI/Abdominal exam: Present: soft, normal bowel sounds. Absent: distended, tenderness, guarding, rebound, rigid Right Shoulder Exam: Present: tenderness over AC joint, other (arm in sling, ROM ilicits pain) Neuro motor exam: Present: wrist extension intact, thumb opposition intact Vascular: Present: normal capillary refill, radial pulse (2+). Absent: vascular compromise Left Lower Leg exam: Present: normal inspection, full ROM, tenderness (anterior mao) Back exam: Present: normal inspection Neurological exam: Present: alert, oriented X3, CN II-XII intact Skin exam: Present: warm, dry, intact, normal color. Absent: rash Course Vital Signs 04/08/24 13:37 Temperature 98.2 F Pulse Rate 78 Respiratory 16 Rate Blood Pressure 137/81 O2 Sat by Pulse 96 Oximetry Medical Decision Making - Medical Decision Making I completed the quick note portion of this chart signed Doris Evans PA-C Was pt. sent in by a medical professional or institution (JORDI Stone, CREW CLERK, urgent care, hospital, or group home...) When possible be specific @ -No Did you speak to anyone other than the patient for history (EMS, parent, family, police, friend...)? What history was obtained from this source @ -No Did you review nursing and triage notes (agree or disagree)? Why? @ -I reviewed and agree with nursing and triage notes Were old charts reviewed (outside hosp., previous admission, EMS record, old EKG, old radiological studies, urgent care reports/EKG's, group home records)? Report findings @ -I reviewed the patient's right shoulder x-ray that was completed on 04/06/2024 which revealed a fracture involving the distal acromion and possibly the distal clavicle. Differential Diagnosis (chest pain, altered mental status, abdominal pain women, abdominal pain men, vaginal bleeding, weakness, fever, dyspnea, syncope, headache, dizziness, GI bleed, back pain, seizure, CVA, palpatations, mental health, musculoskeletal)? @ -Differential Musculoskeletal Muscular strain, contusion, ligament sprain, fracture, arthritis, septic arthritis, bursitis, cellulitis, muscle spasm, nerve compression, DVT, arterial occlusion, herpes zoster, electrolyte abnormality, tumor.... This is not meant to be in all inclusive list EKG interpreted by me (3pts min.). @ -None X-rays interpreted by me (1pt min.). @ -X-ray of the left tib-fib negative for acute osseous abnormality CT interpreted by me (1pt min.). @ -None done U/S interpreted by me (1pt. min.). @ -None done What testing was considered but not performed or refused? (CT, X-rays, U/S, labs)? Why? @ -None What meds were considered but not given or refused? Why? @ -Patient was offered pain medication but she refused at this time states that she does not like to take pain medication but is concerned as to why she is having residual pain. Did you discuss the management of the patient with other professionals (professionals i.e. , JORDI, CREW CLERK, lab, RT, psych nurse, social media analyst, auto overhauler, teacher, security police officer, continuous pillowcase cutter)? Give summary @ -No Was smoking cessation discussed for >3mins.? @ -No Was critical care preformed (if so, how long)? @ -No Were there social determinants of health that impacted care today? How? (Homelessness, low income, unemployed, alcoholism, drug addiction, transportation, low edu. Level, literacy, decrease access to med. care, nursing home, rehab)? @ -No Was there de-escalation of care discussed even if they declined (Discuss DNR or withdrawal of care, Hospice)? DNR status @ -No What co-morbidities impacted this encounter? (DM, HTN, Smoking, COPD, CAD, Cancer, CVA, ARF, Chemo, Hep., AIDS, mental health diagnosis, sleep apnea, morbid obesity)? @ -None Was patient admitted / discharged? Hospital course, mention meds given and route, prescriptions, significant lab abnormalities, going to OR and other pertinent info. @ -Discharge. 63-year-old female with left flank pain. Patient was originally evaluated as a quick note and was sent for x-ray imaging. On my evaluation the patient she has no signs of acute distress. Patient has mild tenderness to palpation over the left anterior leg. Patient has full range of motion is neurovascularly intact. Discussed with patient at bedside that x-ray imaging is negative. Patient became quite angry that this and states that she wasted her time and is concerned why her leg is still bothering her. Discussion with patient at bedside various routes for fruther alleveation and she declines pain medication. Patient states that she would like to leave at this point and will follow-up with her primary care provider for further evaluation. All questions answered at bedside and strict return parameters leah with the patient she is verbalized understanding. Case discussed with Dr. Chambers Undiagnosed new problem with uncertain prognosis? @ -No Drug Therapy requiring intensive monitoring for toxicity (Heparin, Nitro, Insulin, Cardizem)? @ -No Were any procedures done? @ -No Diagnosis/symptom? @ -Leg pain Acute, or Chronic, or Acute on Chronic? @ -Acute Uncomplicated (without systemic symptoms) or Complicated (systemic symptoms)? @ -Uncomplicated Side effects of treatment? @ -No Exacerbation, Progression, or Severe Exacerbation? @ -No Poses a threat to life or bodily function? How? (Chest pain, USA, [place], pneumonia, PE, COPD, DKA, ARF, appy, cholecystitis, CVA, Diverticulitis, Homicidal, Suicidal, threat to staff... and all critical care pts) @ -No Disposition Clinical Impression: Left leg pain Disposition: HOME SELF-CARE Condition: Good Instructions (If sedation given, give patient instructions): Leg Pain (ED) Additional Instructions: Return to emergency department for any new or worsening symptoms. Continue Tylenol Motrin for symptomatic relief. recommend follow up with your PCP for further evaluation. Is patient prescribed a controlled substance at d/c from ED?: No Referrals: Santiago Berg MD [Primary Care Provider] - 1-2 days Time of Disposition: 15:55
--- NOTE | 2024-04-08 15:06 | XR ---
EXAMINATION TYPE: XR tibia fibula 2 views LT DATE OF EXAM: 04/08/2024 Comparison: None Clinical History: 63-year-old female with pain s/p fall Findings: Both knee and ankle articulations appear grossly intact. No acute fracture seen. Impression: No acute osseous abnormality seen. [facility], , 04/08/2024 3:04 PM
== END 2024-04-08 17:00 | disposition home or self-care (01) ==
LOC: EC 13:24
DX: M79.605 Pain in left leg (principal)
CPT/HCPCS: 99283

== ENCOUNTER 2024-05-26 09:48 | Emergency (ER) | payer OTHER ==
--- NOTE | 2024-05-26 10:18 | ED ---
Abdominal Pain HPI - General Chief Complaint: Abdominal Pain Stated Complaint: Abd pain Time Seen by Provider: 05/26/24 09:54 Source: patient, RN notes reviewed Mode of arrival: ambulatory Limitations: no limitations - History of Present Illness Initial Comments: 63-year-old female presents emergency department with chief complaint of nausea vomiting and right upper quadrant abdominal pain that started 1 week ago and has worsened overnight. She has a history significant for cholecystectomy, pancreatitis ,diverticulitis, previous colostomy and abdominal surgery with multiple adhesions. She also reports nausea, vomiting, and diarrhea. She denies fever, chest pain, shortness of breath. - Related Data Home Medications Medication Instructions Recorded Confirmed Multivitamins, Thera [Multivitamin 1 tab PO DAILY 01/27/21 09/12/23 (formulary)] Loratadine [Claritin] 10 mg PO DAILY 04/17/21 09/12/23 Venlafaxine HCl ER [Effexor Xr] 37.5 mg PO DAILY 08/03/23 09/12/23 polyethylene glycoL 3350 [Miralax] 17 gm PO DAILY 08/03/23 09/12/23 Previous Rx's Medication Instructions Recorded Acetaminophen [Tylenol] 325 mg PO Q4H PRN #30 tab 04/22/23 Omeprazole [PriLOSEC] 40 mg PO DAILY #30 cap 05/26/24 Ondansetron Odt [Zofran Odt] 4 mg PO Q8HR PRN #10 tab 05/26/24 Allergies Allergy/AdvReac Type Severity Reaction Status Date / Time ibuprofen AdvReac Abdominal Verified 05/26/24 09:51 Pain Review of Systems ROS Statement: Those systems with pertinent positive or pertinent negative responses have been documented in the HPI. ROS Other: All systems not noted in ROS Statement are negative. Past Medical History Past Medical History: Asthma, COPD, Fibromyalgia, Musculoskeletal Disorder, Osteoarthritis (OA), Pulmonary Embolus (PE) Additional Past Medical History / Comment(s): Hx Pancreatitis, chronic pain, DDD, DJD, cervical/back pain/bilateral scoliosis, spondylosis, neuropathy bilateral hands and feet, pulmonary embolism right lung, brain aneurysm for 12 years, are watching. History of Any Multi-Drug Resistant Organisms: None Reported Past Surgical History: Bowel Resection, Cholecystectomy, Hysterectomy, Tubal Ligation Additional Past Surgical History / Comment(s): DECEMBER 2020 BOWEL RESECTION WITH COLOSTOMY, D&C, angiograms d/t cerebral aneurysm, colostomy reversal. Past Anesthesia/Blood Transfusion Reactions: No Reported Reaction Additional Past Anesthesia/Blood Transfusion Reaction / Comment(s): Motion sickness as a child. Past Psychological History: Anxiety, Depression Smoking Status: Current every day smoker Past Alcohol Use History: Heavy Past Drug Use History: Marijuana - Past Family History Mother Family Medical History: Cancer, Coronary Artery Disease (CAD) Additional Family Medical History / Comment(s): Uterine cancer. Sister(s) Family Medical History: Cancer, Neurologic Disorder Additional Family Medical History / Comment(s): Parkinsonism, uterine and lung cancer. Brother(s) Family Medical History: Cancer Additional Family Medical History / Comment(s): 2 brothers with cancer - 1 leukemia. General Exam Limitations: no limitations General appearance: alert, in no apparent distress Head exam: Present: atraumatic, normocephalic, normal inspection Eye exam: Present: normal appearance, PERRL, EOMI. Absent: scleral icterus, conjunctival injection, periorbital swelling ENT exam: Present: normal exam, mucous membranes moist Neck exam: Present: normal inspection. Absent: tenderness, meningismus, lymphadenopathy Respiratory exam: Present: normal lung sounds bilaterally. Absent: respiratory distress, wheezes, rales, rhonchi, stridor Cardiovascular Exam: Present: regular rate, normal rhythm, normal heart sounds. Absent: systolic murmur, diastolic murmur, rubs, gallop, clicks GI/Abdominal exam: Present: soft, normal bowel sounds. Absent: distended, tenderness, guarding, rebound, rigid Extremities exam: Present: normal inspection, full ROM, normal capillary refill. Absent: tenderness, pedal edema, joint swelling, calf tenderness Back exam: Present: normal inspection Neurological exam: Present: alert, oriented X3, CN II-XII intact Psychiatric exam: Present: normal affect, normal mood Skin exam: Present: warm, dry, intact, normal color. Absent: rash Course Vital Signs 05/26/24 05/26/24 05/26/24 09:48 10:34 12:38 Temperature 99.2 F Pulse Rate 92 70 92 Respiratory 16 17 18 Rate Blood Pressure 116/76 138/71 133/87 O2 Sat by Pulse 96 96 95 Oximetry Medical Decision Making - Medical Decision Making Was pt. sent in by a medical professional or institution (JORDI Stone, [employer] BAND WRAPPER, urgent care, hospital, or jail...) When possible be specific @ -No Did you speak to anyone other than the patient for history (EMS, parent, family, police, friend...)? What history was obtained from this source @ -No Did you review nursing and triage notes (agree or disagree)? Why? @ -I reviewed and agree with nursing and triage notes Were old charts reviewed (outside hosp., previous admission, EMS record, old EKG, old radiological studies, urgent care reports/EKG's, jail records)? Report findings @ -No old charts were reviewed Differential Diagnosis (chest pain, altered mental status, abdominal pain women, abdominal pain men, vaginal bleeding, weakness, fever, dyspnea, syncope, headache, dizziness, GI bleed, back pain, seizure, CVA, palpatations, mental health, musculoskeletal)? @ -Differential Abdominal Pain Women: Appendicitis, Cholecystitis, diverticulosis, ischemic bowel, pancreatitis, hepatitis, UTI, gastroenteritis, AAA, incarcerated hernia, bowel obstruction, constipation, inflammatory bowel, hepatitis, peptic ulcer disease, splenic infarction, perforated viscus, vulvitis, ovarian torsion, PID, kidney stone, placenta abruption, this is not meant to be an all-inclusive list EKG interpreted by me (3pts min.). @ -None X-rays interpreted by me (1pt min.). @ -None done CT interpreted by me (1pt min.). @ -CT abdomen pelvis showing inflammation of the duodenum consistent with duodenitis no perforation no masses U/S interpreted by me (1pt. min.). @ -None done What testing was considered but not performed or refused? (CT, X-rays, U/S, labs)? Why? @ -None What meds were considered but not given or refused? Why? @ -None Did you discuss the management of the patient with other professionals (professionals i.e. JORDI Stone, [employer] B[employer] WRAPPER, lab, RT, psych nurse, vp digital marketing social media and crm, sprinkler driver, teacher, duty officer, supportive employment case manager)? Give summary @ -No Was smoking cessation discussed for >3mins.? @ -No Was critical care preformed (if so, how long)? @ -No Were there social determinants of health that impacted care today? How? (Homelessness, low income, unemployed, alcoholism, drug addiction, transportation, low edu. Level, literacy, decrease access to med. care, fpc, rehab)? @ -No Was there de-escalation of care discussed even if they declined (Discuss DNR or withdrawal of care, Hospice)? DNR status @ -No What co-morbidities impacted this encounter? (DM, HTN, Smoking, COPD, CAD, Cancer, CVA, ARF, Chemo, Hep., AIDS, mental health diagnosis, sleep apnea, morbid obesity)? @ -Cholecystectomy, diverticulitis, colon resection Was patient admitted / discharged? Hospital course, mention meds given and route, prescriptions, significant lab abnormalities, going to OR and other pertinent info. @ -Charge. Presented for abdominal pain worsening patient did have some nausea, diarrhea. Patient did have CT given multiple prior abdominal surgeries showing evidence of duodenitis. Patient is given Protonix discharged on omeprazole. Undiagnosed new problem with uncertain prognosis? @ -No Drug Therapy requiring intensive monitoring for toxicity (Heparin, Nitro, Insulin, Cardizem)? @ -No Were any procedures done? @ -No Diagnosis/symptom? @ -Duodenitis Acute, or Chronic, or Acute on Chronic? @ -Acute Uncomplicated (without systemic symptoms) or Complicated (systemic symptoms)? @ -Uncomplicated Side effects of treatment? @ -No Exacerbation, Progression, or Severe Exacerbation? @ -No Poses a threat to life or bodily function? How? (Chest pain, USA, MS, pneumonia, PE, COPD, DKA, ARF, appy, cholecystitis, CVA, Diverticulitis, Homicidal, Suicidal, threat to staff... and all critical care pts) @ -No - Lab Data Result diagrams: 05/26/24 10:15 05/26/24 10:15 Lab Results 05/26/24 05/26/24 Range/Units 10:15 10:15 WBC 10.6 (3.8-10.6) k/uL RBC 5.53 H (3.80-5.40) m/uL Hgb 17.0 H (11.4-16.0) gm/dL Hct 50.9 H (34.0-46.0) % MCV 92.1 (80.0-100.0) fL MCH 30.7 (25.0-35.0) pg MCHC 33.3 (31.0-37.0) g/dL RDW 12.6 (11.5-15.5) % Plt Count 309 (150-450) k/uL MPV 7.1 Neutrophils % 74 % Lymphocytes % 17 % Monocytes % 6 % Eosinophils % 1 % Basophils % 1 % Neutrophils # 7.9 H (1.3-7.7) k/uL Lymphocytes # 1.8 (1.0-4.8) k/uL Monocytes # 0.6 (0-1.0) k/uL Eosinophils # 0.1 (0-0.7) k/uL Basophils # 0.1 (0-0.2) k/uL Sodium 140 (137-145) mmol/L Potassium 3.8 (3.5-5.1) mmol/L Chloride 106 (98-107) mmol/L Carbon Dioxide 25 (22-30) mmol/L Anion Gap 9 mmol/L BUN 18 H (7-17) mg/dL Creatinine 0.55 (0.52-1.04) mg/dL Est GFR (CKD-EPI)AfAm >90 (>60 ml/min/1.73 sqM) Est GFR (CKD-EPI)NonAf >90 (>60 ml/min/1.73 sqM) Glucose 141 H (74-99) mg/dL Calcium 9.6 (8.4-10.2) mg/dL Total Bilirubin 0.8 (0.2-1.3) mg/dL AST 22 (14-36) U/L ALT 18 (4-34) U/L Alkaline Phosphatase 72 (38-126) U/L Total Protein 7.8 (6.3-8.2) g/dL Albumin 4.6 (3.5-5.0) g/dL Amylase 47 (30-110) U/L Lipase 140 (23-300) U/L Disposition Clinical Impression: Abdominal pain, Acute duodenitis Disposition: HOME SELF-CARE Condition: Stable Instructions (If sedation given, give patient instructions): Diet for Stomach Ulcers and Gastritis (ED), Duodenitis (ED) Additional Instructions: Please return to the Emergency Department if symptoms worsen or any other concerns. Prescriptions: Omeprazole [PriLOSEC] 40 mg PO DAILY #30 cap Ondansetron Odt [Zofran Odt] 4 mg PO Q8HR PRN #10 tab PRN Reason: Nausea Is patient prescribed a controlled substance at d/c from ED?: No Referrals: Santiago Berg MD [Primary Care Provider] - 1-2 days Julia Vilchis MD [STAFF PHYSICIAN] - 1-2 days Time of Disposition: 12:32
[2024-05-26] MEDS: ONDANSETRON 4 MG/2 ML VIAL IVP STA (10:26)
[2024-05-26] MEDS: SODIUM CHLORIDE 0.9% 1,000 ML IV STA (10:26)
[2024-05-26] MEDS: MORPHINE SULFATE 2 MG/ML SYRINGE IVP ONE (10:30)
[2024-05-26 10:36] LABS: Basophils # (A) 0.1 k/uL (0-0.2); Basophils % (A) 1 %; Eosinophils # (A) 0.1 k/uL (0-0.7); Eosinophils % (A) 1 %; HCT 50.9 % (34.0-46.0); Lymphocytes # (A) 1.8 k/uL (1.0-4.8); Lymphocytes % (A) 17 %; MCH 30.7 pg (25.0-35.0); MCHC 33.3 g/dL (31.0-37.0); MCV 92.1 fL (80.0-100.0); Mean Platelet Volume 7.1; Monocytes # (A) 0.6 k/uL (0-1.0); Monocytes % (A) 6 %; Neutrophils # (A) 7.9 k/uL (1.3-7.7); Neutrophils % (A) 74 %; Platelet Count 309 k/uL (150-450); RBC 5.53 m/uL (3.80-5.40); RDW 12.6 % (11.5-15.5); WBC 10.6 k/uL (3.8-10.6)
[2024-05-26 10:51] LABS: ALT 18 U/L (4-34); AST 22 U/L (14-36); African American GFR (CKD) >90 (>60 ml/min/1.73 sqM); Albumin 4.6 g/dL (3.5-5.0); Alkaline Phosphatase 72 U/L (38-126); Amylase 47 U/L (30-110); Anion Gap 9 mmol/L; Blood Urea Nitrogen 18 mg/dL (7-17); Calcium 9.6 mg/dL (8.4-10.2); Carbon Dioxide 25 mmol/L (22-30); Chloride 106 mmol/L (98-107); Glucose 141 mg/dL (74-99); Lipase 140 U/L (23-300); Non-African American GFR(CKD) >90 (>60 ml/min/1.73 sqM); Potassium 3.8 mmol/L (3.5-5.1); Sodium 140 mmol/L (137-145); Total Bilirubin 0.8 mg/dL (0.2-1.3); Total Protein 7.8 g/dL (6.3-8.2)
--- NOTE | 2024-05-26 11:50 | CT ---
EXAMINATION TYPE: CT abdomen pelvis w con DATE OF EXAM: 05/26/2024 11:31 AM COMPARISON: CT abdomen pelvis most recent from 05/18/2023 CLINICAL INDICATION: Female, 63 years old with history of abdominal pain; RLQ pain, nausea and vomiti ng TECHNIQUE: Axial CT abdomen pelvis w con;Sagittal and coronal reformats were created on a separate w orkstation. Contrast used:100 mL of Isovue 300 with IV Contrast, (none if empty) Oral contrast used: without Oral Contrast (none if empty) CT DLP: 1213.4 mGycm, Automated exposure control for dose reduction was used. FINDINGS: LOWER CHEST: Unremarkable ABDOMEN LIVER: Diffusely hypoattenuating parenchyma. GALLBLADDER AND BILE DUCTS: Unremarkable. PANCREAS: Unremarkable. SPLEEN: Unremarkable. ADRENAL GLANDS: Unremarkable. KIDNEYS AND URETERS: No evidence of hydronephrosis or renal calculus. The ureters are unremarkable. PELVIS BLADDER: No evidence for wall thickening or mass given limitations of exam. REPRODUCTIVE: Unremarkable. ABDOMEN & PELVIS STOMACH AND BOWEL: There is circumferential wall thickening of the duodenum involving the first and s econd portions melara measuring up to 12 mm No evidence of bowel obstruction. The appendix is visualiz ed and within normal limits. PERITONEUM/RETROPERITONEUM: No evidence of pneumoperitoneum or free fluid. VASCULATURE: Mild atherosclerotic calcifications are present throughout the abdominal aorta and its b ranches. No evidence of aortic aneurysm. MUSCULOSKELETAL: No acute osseous abnormalities. Mild disc degeneration changes are present throughou t the thoracolumbar spine. LYMPH NODES: No gross evidence for lymphadenopathy. Moderate to severe degeneration at L4-L5 and L5-S 1 vacuum disc phenomenon, endplate sclerosis and osteophytes. SOFT TISSUE/ABDOMINAL WALL: Unremarkable IMPRESSION: 1. Circumferential Wall thickening of the second and first portion of duodenum compatible with duode nitis. Consider direct visualization and clinical correlation to exclude underlying mass. Short-term follow-up recommended. 2. No evidence for obstructive uropathy or renal calculus. The appendix is normal. 3. Hepatic steatosis. [facility], Workstation: [id number], 05/26/2024 11:48 AM
[2024-05-26] MEDS: PANTOPRAZOLE 40 MG/10 ML VIAL IVP STA (13:11)
[2024-05-26 13:20] VITALS: BP 122/76; PULSE 71; RESP 17; TEMP 98.5
[2024-05-26 13:53] LABS: Appearance,Urine Clear (Clear); Bilirubin,Urine Negative (Negative); Blood,Urine Negative (Negative); Color,Urine Colorless; Glucose,Urine (UA) Negative (Negative); Ketones,Urine Trace (Negative); Leukocyte Esterase,Urine Negative (Negative); Nitrite,Urine Negative (Negative); PH, Urine 6.5 (5.0-8.0); Protein,Urine Negative (Negative); Urobilinogen,Urine <2.0 mg/dL (<2.0)
[2024-05-26 14:02] LABS: Specific Gravity,Urine >1.050 (1.001-1.035)
== END 2024-05-26 13:35 | disposition home or self-care (01) ==
LOC: EC 09:48
DX: K29.80 Duodenitis without bleeding (principal); K76.0 Fatty (change of) liver, not elsewhere classified; F17.200 Nicotine dependence, unspecified, uncomplicated; Z88.6 Allergy status to analgesic agent; Z90.49 Acquired absence of other specified parts of digestive tract; Z93.3 Colostomy status
CPT/HCPCS: 36415; 80053; 82150; 83690; 85025; 81003; 74177; 99284; 96374; 96375 ×2; 96361 ×3; J2405; J2270; Q9967; J2470

== ENCOUNTER 2024-08-14 05:34 | Day surgery (SDC) | payer OTHER ==
[2024-08-14] MEDS ORDERED: LIDOCAINE 1% (10MG/ML) FOR IV START INTRADERMA PRN (06:17)
[2024-08-14 06:30] VITALS: TEMP 99
[2024-08-14] MEDS: IV FLUID CONTINUATION 1,000 ML IV ONE (06:40)
[2024-08-14] MEDS: LACTATED RINGERS 1,000 ML IV SCH (06:41)
[2024-08-14 06:45] LABS: Glucose,Whole Blood 105 mg/dL (70-110)
[2024-08-14] MEDS ORDERED: PROPOFOL 10 MG/ML 20 ML VIAL IV ONE (07:08)
[2024-08-14] MEDS ORDERED: LIDOCAINE 1% INJ 10MG/ML (20 ML MDV) ONE (07:08)
--- NOTE | 2024-08-14 07:21 | P.PCN ---
Date of Procedure: 08/14/24 Procedure(s) Performed: BRIEF HISTORY: Patient is a 63-year-old, pleasant, white female scheduled for an upper endoscopy as a part of evaluation of epigastric and upper abdominal pain for the last 1 year duration. She will emergency room and had a CT of the abdomen pelvis done that showed thickening of the second and third part of the duodenum. Because of the persistent symptoms she is scheduled upper endoscopy to evaluate for the. PROCEDURE PERFORMED: Esophagogastroduodenoscopy biopsy. PREOPERATIVE DIAGNOSIS: Persistent upper abdominal pain of 1 year duration. IV sedation per anesthesia. PROCEDURE: After informed consent was obtained, the patient was brought into the endoscopy unit. IV sedation was administered by Anesthesia under continuous monitoring. Initially the Olympus GIF-140 video endoscope was inserted into the mouth. Esophagus intubated without any difficulty. It was gradually advanced into the stomach and duodenum and carefully examined. The bulb of the duodenum had mild duodenitis and the second part of the duodenum appeared normal. The scope at this time was withdrawn to the stomach, adequately insufflated with air, and upon careful examination, mucosa of the antrum and biopsies were done from this area. Mucosa of the, body, cardia and the fundus appeared normal. The scope was then withdrawn into the esophagus. The GE junction was located at 39 cm from the incisors. The esophagus appeared normal. There were no erosions or ulcerations seen, biopsies were done from the distal esophagus and the patient tolerated the procedure well. IMPRESSION: 1. Mild antral gastritis. 2. Mild duodenitis. RECOMMENDATIONS: The findings of this examination were discussed with the patient as well as her family. She was advised to follow-up with the biopsy results. She will be started on Protonix 40 mg daily and follow-up in the office in 2 weeks..
[2024-08-14 07:40] VITALS: BP 129/78; PULSE 80; RESP 16
== END 2024-08-14 08:29 | disposition home or self-care (01) ==
LOC: ORWHC2ENDO 05:34
PROVIDERS: ATTEND Internal Medicine Gastroenterology
DX: K29.50 Unspecified chronic gastritis without bleeding (principal); K29.80 Duodenitis without bleeding; K20.90 Esophagitis, unspecified without bleeding; J44.89 Other specified chronic obstructive pulmonary disease; I71.9 Aortic aneurysm of unspecified site, without rupture; F41.9 Anxiety disorder, unspecified; F17.210 Nicotine dependence, cigarettes, uncomplicated; F32.A Depression, unspecified; M54.50 Low back pain, unspecified; Z87.19 Personal history of other diseases of the digestive system; Z86.711 Personal history of pulmonary embolism; Z88.6 Allergy status to analgesic agent; Z79.899 Other long term (current) drug therapy
CPT/HCPCS: 88305; 43239; J2003; J2704